=== PATIENT | male | born 1935 | race Caucasian/White ===

== ENCOUNTER → 2018-03-13 10:43 | Outpatient (CLI) | payer MEDICARE, OTHER, SELFPAY ==
--- NOTE | 2018-03-13 | DI.CT.S_ITS ---
PROCEDURE: CT CERVICAL SPINE WO CON INDICATIONS: CERVICAL SPINE RADICULOPATHY TECHNIQUE: Noncontrast 3 mm thick sections acquired from the skull base to the T4 level. Sagittal and coronal reformats were then constructed. For radiation dose reduction, the following was used: automated exposure control, adjustment of mA and/or kV according to patient size. COMPARISON: [facility], CT, C-SPINE W&WO CONTRAST, 04/09/2014, 14:15. [facility], CR, XR CERVICAL SPINE 2V OR 3V, 01/26/2018, 12:14. [facility], CR, CERVICAL SPINE 4 OR 5 VIEWS, 12/20/2017, 14:55. FINDINGS: Image quality: Excellent. Bones: There is straightening of cervical curvature. No fractures or dislocations. There is degenerative disc disease with posterior disc bulge at C3-C4, C4-C5, C5-C6, C6-C7 and C7-T1. Scattered bilateral facet arthropathy is present, moderate to severe at C3-C4 and C4-C5 on the left and C5-C6 on the right. There is mild central canal stenosis at C5-C6, C6-C7 and C7-T1. There is severe foraminal stenosis at C5-C6 on the right and moderate foraminal stenosis at C6-C7 bilaterally. Visualized superior ribs are intact. Soft tissues: Prevertebral soft tissues are normal in thickness. No paravertebral hematomas. No apical pneumothoraces. Right maxillary sinus mucosal thickening. IMPRESSION: 1. Multilevel degenerative disc disease and facet arthropathy as described. 2. Mild central canal stenosis at C5-C6, C6-7 and C7-T1. 3. Multilevel foraminal stenosis, severe at C5-C6 on the right and moderate C6-C7 bilaterally. Dictated by: Palmer Joy M.D. on 03/13/2018 at 12:46 Approved by: Palmer Joy M.D. on 03/13/2018 at 12:52
== END ==
PROVIDERS: PCP Family Medicine; Visit Provider Orthopaedic Surgery Orthopaedic Surgery of the Spine
DX: M54.12 Radiculopathy, cervical region (principal); M47.892 Other spondylosis, cervical region
CPT/HCPCS: 72125

== ENCOUNTER → 2018-03-26 11:29 | Outpatient (CLI) | payer MEDICARE, OTHER, SELFPAY ==
[2018-03-26 12:10] LABS: Add Manual Diff / Slide Review NO; Basophils Percent Auto 0.8 % (0-2); Eosinophils Percent Auto 2.4 % (2-4); Hematocrit 39.6 % (41-53); Hemoglobin 13.6 g/dL (13.5-17.5); Lymphocytes Percent Auto 39.1 % (25-40); Mean Corpuscular HGB Conc 34.4 % (30-36); Mean Corpuscular Hemoglobin 32.6 PG (26-34); Mean Corpuscular Volume 94.8 fL (80-100); Monocytes Percent Auto 11.4 % (3-14); Neutrophils Absolute Auto 2300 /uL (3000-5900); Neutrophils Percent Auto 46.3 % (50-75); Platelet Count 263 X10^3/uL (150-400); Red Blood Cell Count 4.18 X10^6/uL (4.5-5.9); Red Cell Distribution Width 12.8 % (11.6-14.8)
[2018-03-26 12:25] LABS: BUN Creatinine Ratio 16.7 (6-22); Blood Urea Nitrogen 15 mg/dL (9-20); Calcium 10.1 mg/dL (8.4-10.2); Carbon Dioxide 27 mmol/L (22-32); Chloride 96 mmol/L (98-107); Estimated Glomerular Filt Rate > 60.0 mL/min (>60); Glucose 242 mg/dL (80-110); HEMOLYSIS < 15 (0-50); Potassium 4.4 mmol/L (3.4-5.1); Sodium 137 mmol/L (137-145)
[2018-03-26 12:40] LABS: Hemoglobin A1C% w Est Avg Glu 8.1 % (4.0-6.0)
== END ==
PROVIDERS: PCP Family Medicine; Visit Provider Orthopaedic Surgery Orthopaedic Surgery of the Spine
DX: M48.02 Spinal stenosis, cervical region (principal); Z01.818 Encounter for other preprocedural examination
CPT/HCPCS: 36415; 80048; 83036; 85025; 93005

== ENCOUNTER 2018-04-03 10:29 | Inpatient (IN) | payer MEDICARE, OTHER, SELFPAY ==
[2018-03-27 07:30] VITALS: BMI 29.3
[2018-04-03] VITALS (14 sets, daily range): BP systolic 140–173; BP diastolic 76–101; PULSE 75–88; RESP 15–20; TEMP 35.9–36.5; O2SAT 90–99; BMI 29.3
--- NOTE | 2018-04-03 | DI.RAD.S_ITS ---
PROCEDURE: XR CERVICAL SPINE 2V OR 3V INDICATIONS: C5-6, C6 -7 ACDF TECHNIQUE: 2 view(s) of the cervical spine were acquired. COMPARISON: [facility], CR, XR CERVICAL SPINE 2V OR 3V, 01/26/2018, 12:14. FINDINGS: 2 fluoroscopy images demonstrate discectomy and anterior fusion at C5-C6 and C6-C7. Surgical hardware appear in expected position. Alignment is anatomic. IMPRESSION: Discectomy and anterior fusion at C5-C6 and C6-C7. Dictated by: Palmer Joy M.D. on 04/03/2018 at 15:13 Approved by: Palmer Joy M.D. on 04/03/2018 at 15:16
[2018-04-03] MEDS: LACTATED RINGERS 1,000 ML 42 ML IV ×2 (11:05→14:03)
--- NOTE | 2018-04-03 11:44 | PM.PREOP ---
Pre-operative Note Interval Note Pre-op Check: Yes History & Physical Reviewed by Physician, Yes Exam Performed and Yes History & Physical exam performed today by Physician Changes: No
[2018-04-03] MEDS: CEFAZOLIN 2 GM/100 ML FROZ.PIGGY IV ×2 (12:09→22:06)
--- NOTE | 2018-04-03 13:00 | SUR.OPER ---
Supine on padded OR bed, head on gel doughnut, rolled towel between shoulder blades vertically arms padded and tucked at sides, legs uncrossed pillow under the knees, tape on shoulders then over blanket from shoulder to foot of the bed.
--- NOTE | 2018-04-03 14:22 | PM.OP.1 ---
Operative Date/Time/Diagnoses Date of procedure: 04/03/18 Time of procedure: 12:22 Pre-op diagnosis: 1. C5-6, C6-7 spondylosis with radiculopathy 2. C5-6, C6-7 spinal stenosis. Post-op diagnosis: same Procedure & Clinicians Procedure: 1. C5-6, C6-7 anterior cervical discectomy and fusion 2. C5-6, C6-7 anterior interobody cage placement 3. C5-6, C6-7 anterior instrumentation with plate and screw placement in C5, C6, C7 4. Utilization of microsurgical technique and operating microscope Same procedure as scheduled: Yes Indications: Patient has been having chronic neck pain and worsening cervical radiculopathy. Patient failed multiple conservative management with worsening pain weakness and numbness in her upper extremity. Patient has been having difficulty performing activity of daily living. After discussing risks benefits of treatment options, patient elected proceed with surgery. Surgeon: Mayda Doherty Umbrella Tipper: Chante Gillis Click Yes if Unassisted: No Anesthesia Type: General Operative Notes Closure Type: primary Specimen(s): none sent Implants & Drains: Globus extend plate and PEEK interbody cage Estimated Blood Loss (mL): 10 Blood products transfused: none Procedure in detail: Patient was seen in the preoperative area. Risks and benefits of the surgery was discussed with the patient. Operative consent was obtained and placed in the chart. Patient was then taken to the operative room. Prophylactic antibiotic was given less than 0.5 hr prior to skin incision. General anesthesia was administered. Patient was placed into a supine position on her radiolucent table. Bilateral shoulders were taped down to allow proper C-arm imaging. Anterior cervical area was prepped and draped in a sterile fashion. Time-out was performed at this time. Using lateral C-arm imaging, the level between C5 and C7 was identified and marked on patient's neck. A oblique incision from midline towards medial border of sternocleidomastoid muscle was made. The platysma muscle was incised in line with skin incision. Metzenbaum scissor was used to develop the plane between the medial border of sternocleidomastoid d and the strap muscles medially. The carotid sheath and its contents were identified and protected behind the hand-held retractor during the entire case. The plane between the carotid sheath and strap muscles was developed with Metzenbaum scissors. Dissection was made down to the level of the anterior cervical fascia. Longus colli muscle was incised on the anterior aspect of vertebral bodies bilaterally from C5-C7. Spinal needle was placed into the C5-6 disc space and confirmed with lateral C-arm imaging. Using microsurgical technique and operative microscope, anterior cervical diskectomy was performed at C5-6 and C6-7 level. This was done by removing the disc material, removing the anterior and posterior osteophytes posterior longitudinal ligaments along with performing bilateral foraminotomies at both levels. Patient was found to have severe central and foraminal stenosis at both levels. Patient's stenosis was fully decompressed after decompression was completed. After the diskectomy was completed, 2 anterior interbody cages were obtained. The cages were packed with globus via cell bone grafting material. One cage each along with the bone grafting material was then packed into the interbody spaces from C5-C7 with one cage into each interbody level. After the cages were placed, the anterior cervical plate was stabilized to the C5-C7 vertebrae using 2 screws at each each level. Total 6 screws were placed. After confirming placement of the hardware with AP and lateral C-arm imaging, the screws were locked into the plate using the locking mechanism and torque limiting screwdriver. After the hardware was placed and confirmed with AP and lateral C-arm imaging, the wound was irrigated with sterile normal saline. The platysma muscle and the subcutaneous tissue was closed with 2-0 Vicryl. The skin was closed with 4-0Monocryl and Steri-Strips. Patient tolerated the procedure well. Patient was transferred recovery room in stable condition. There were no complications. Complications: none Condition: stable Disposition: Acute Care
--- NOTE | 2018-04-03 14:26 | P.OP_ITS ---
Operative Date/Time/Diagnoses Date of procedure: 04/03/18 Time of procedure: 12:22 Pre-op diagnosis: 1. C5-6, C6-7 spondylosis with radiculopathy 2. C5-6, C6-7 spinal stenosis. Post-op diagnosis: same Procedure & Clinicians Procedure: 1. C5-6, C6-7 anterior cervical discectomy and fusion 2. C5-6, C6-7 anterior interobody cage placement 3. C5-6, C6-7 anterior instrumentation with plate and screw placement in C5, C6 , C7 4. Utilization of microsurgical technique and operating microscope Same procedure as scheduled: Yes Indications: Patient has been having chronic neck pain and worsening cervical radiculopathy. Patient failed multiple conservative management with worsening pain weakness and numbness in her upper extremity. Patient has been having difficulty performing activity of daily living. After discussing risks benefits of treatment options, patient elected proceed with surgery. Surgeon: Mayda Doherty Safety Deposit Clerk: Chante Gillis Click Yes if Unassisted: No Anesthesia Type: General Operative Notes Closure Type: primary Specimen(s): none sent Implants & Drains: Globus extend plate and PEEK interbody cage Estimated Blood Loss (mL): 10 Blood products transfused: none Procedure in detail: Patient was seen in the preoperative area. Risks and benefits of the surgery was discussed with the patient. Operative consent was obtained and placed in the chart. Patient was then taken to the operative room. Prophylactic antibiotic was given less than 0.5 hr prior to skin incision. General anesthesia was administered. Patient was placed into a supine position on her radiolucent table. Bilateral shoulders were taped down to allow proper C-arm imaging. Anterior cervical area was prepped and draped in a sterile fashion. Time-out was performed at this time. Using lateral C-arm imaging, the level between C5 and C7 was identified and marked on patient's neck. A oblique incision from midline towards medial border of sternocleidomastoid muscle was made. The platysma muscle was incised in line with skin incision. Metzenbaum scissor was used to develop the plane between the medial border of sternocleidomastoid d and the strap muscles medially. The carotid sheath and its contents were identified and protected behind the hand- held retractor during the entire case. The plane between the carotid sheath and strap muscles was developed with Metzenbaum scissors. Dissection was made down to the level of the anterior cervical fascia. Longus colli muscle was incised on the anterior aspect of vertebral bodies bilaterally from C5-C7. Spinal needle was placed into the C5-6 disc space and confirmed with lateral C-arm imaging. Using microsurgical technique and operative microscope, anterior cervical diskectomy was performed at C5-6 and C6-7 level. This was done by removing the disc material, removing the anterior and posterior osteophytes posterior longitudinal ligaments along with performing bilateral foraminotomies at both levels. Patient was found to have severe central and foraminal stenosis at both levels. Patient's stenosis was fully decompressed after decompression was completed. After the diskectomy was completed, 2 anterior interbody cages were obtained. The cages were packed with globus via cell bone grafting material. One cage each along with the bone grafting material was then packed into the interbody spaces from C5-C7 with one cage into each interbody level. After the cages were placed, the anterior cervical plate was stabilized to the C5-C7 vertebrae using 2 screws at each each level. Total 6 screws were placed. After confirming placement of the hardware with AP and lateral C-arm imaging, the screws were locked into the plate using the locking mechanism and torque limiting screwdriver. After the hardware was placed and confirmed with AP and lateral C-arm imaging, the wound was irrigated with sterile normal saline. The platysma muscle and the subcutaneous tissue was closed with 2-0 Vicryl. The skin was closed with 4- 0Monocryl and Steri-Strips. Patient tolerated the procedure well. Patient was transferred recovery room in stable condition. There were no complications. Complications: none Condition: stable Disposition: Acute Care
[2018-04-03] MEDS: OXYCODONE IR 5 MG TABLET PO (16:19)
[2018-04-03] MEDS: SODIUM CHLORIDE 0.9% 1,000 ML 100 ML IV (16:30)
--- NOTE | 2018-04-03 17:48 | CM.MNRNOTE ---
Addendum entered by Grazyna Flanagan R.N. 04/03/18 22:33: Satisfactory post op course. Stands at bedside to void. Dsg w/ small shadow drainage on edge of dsg. Call light w/in reach. Bed alarm on for pt safety. Continue w/plan of care. Original Note: Pt arrived to [facility] 206 @ 1600. Awake, drowsey. Dsg to the anterior neck CDI. IV NS @ 100cc/hr infusing via pump into the LFA as per orders w/o incidence. Family in room. Call light w/in reach, bed alarm on for pt safety.
[2018-04-03] MEDS: DOCUSATE 100 MG CAPSULE PO (21:46)
[2018-04-03] MEDS: DULOXETINE 30 MG CAPSULE PO (21:47)
[2018-04-03] MEDS: METFORMIN HCL 500 MG TABLET 1000 MG PO (21:48)
[2018-04-03] MEDS: METOPROLOL 25 MG TABLET PO (21:48)
[2018-04-03] MEDS: INSULIN GLARGINE 100 UNIT/ML 3ML PEN 20 UNIT SUBCUT (21:49)
[2018-04-03] MEDS: SENNOSIDES 8.6 MG TABLET 17.2 MG PO (22:07)
[2018-04-04] VITALS (9 sets, daily range): BP systolic 132–159; BP diastolic 58–83; PULSE 69–95; RESP 15–18; TEMP 35.9–37.3; O2SAT 93–96
[2018-04-04] MEDS: OXYCODONE IR 5 MG TABLET PO ×6 (00:24→21:18)
[2018-04-04] MEDS: SODIUM CHLORIDE 0.9% 1,000 ML 100 ML IV (00:34)
[2018-04-04] MEDS: CEFAZOLIN 2 GM/100 ML FROZ.PIGGY IV (04:30)
[2018-04-04] MEDS: LEVOTHYROXINE 75 MCG TABLET PO (05:53)
[2018-04-04 05:58] LABS: Hematocrit 36.2 % (41-53); Hemoglobin 12.5 g/dL (13.5-17.5)
--- NOTE | 2018-04-04 07:31 | PM.PNPO.1 ---
Subjective Date Patient Seen: 04/04/18 Time Patient Seen: 07:32 Interval history: POD #1 s/p C5-6, C6-[address] Doherty. His pain is well controlled. He notes discomfort in his neck and tingling in his right hand. He has not eaten yet, no difficulty with swallowing. He has not ambulated with physical therapy. His blood sugars have been controlled. Voiding without dificulty or assistance. Denies chest pain, or shortness of breath. Exam Vital Signs (past 8 hours): - 04/04/18 00:15 04/04/18 04:40 Temperature 98.3 F 98.8 F Pulse Rate 73 72 Respiratory Rate 15 16 Blood Pressure 138/77 H 148/69 H Pulse Oximetry 96 96 Oxygen Delivery Method Room Air Oxygen Flow Rate 1 Narrative Exam Narrative: Patient sitting in bedside chair. Wearing soft collar. 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 Dressing on neck is CDI. Radial pulses are symmetrical. Objective Labs Result Diagrams: 04/04/18 05:49 Labs: Laboratory Results - last 24 hr 04/04/18 05:49 Hgb 12.5 L Hct 36.2 L Assessment & Plan Post-op (1) S/P lumbar fusion: Current Visit: No Status: Acute (2) BPV (benign positional vertigo): Current Visit: No Status: Acute (3) Diabetes: Current Visit: Yes Status: Acute Postoperative Procedures Operation Date: 04/03/18 12:15 Actual Procedures Side Surgeon p C5-6, C6-7 ACDF w/Anterior Instru Mayda Doherty MD POD #1 s/p C5-6, C6-[address] Doherty. Will start ambulating today. No excessive bending, lifting, or twisting. Continue to monitor pain. Plan to discharge home once mobilizing safely and pain adequately controlled. Time Spent With Patient less than 15 minutes Quality VTE Deep Vein Thrombosis/Pulmonary Embolism Present on Admission: No
[2018-04-04] MEDS: METFORMIN HCL 500 MG TABLET 1000 MG PO ×2 (08:27→21:18)
[2018-04-04] MEDS: DOCUSATE 100 MG CAPSULE PO ×2 (08:27→21:18)
[2018-04-04] MEDS: ESCITALOPRAM 10 MG TABLET PO (08:27)
[2018-04-04] MEDS: MULTIVITAMIN 1 TABLET 1 TAB PO (08:27)
[2018-04-04] MEDS: TAMSULOSIN 0.4 MG CAPSULE PO (08:27)
--- NOTE | 2018-04-04 10:16 | CM.DANOTE ---
DCP/Assessment: Reviewed chart. Patient is a 83yr old male admitted to [facility] for ACDF with Dr. Doherty. PCP is Dr. Smith. Primary payor is 1)Medicare 2)[employer]. Met with patient and spouse/Siri at bedside explained CM/SW role. Patient resides with spouse in [place] and plans to d/c home when medically stable. Therapy evaluation currently pending. Patient uses cane at baseline and spouse plans to borrow walker or any other DME from [employer] upon d/c. P: Anticipate home when medically stable. CM team to follow closely for needs. JUDE Fenton Discharge Planning/Care Management CM Discharge Assessment Start: 04/04/18 10:04 Freq: Status: Active Protocol: Document 04/04/18 10:04 KJS (Rec: 04/04/18 10:15 KJS [id number]) Discharge Planning Assessment Assigned Financial Services Representative JUDE/Danii History Provided By Patient Significant Other Has Patient been admitted in last 30 No days? Prior Living Arrangements House Household Members spouse Is patient alert and oriented? Yes Caregiver for Another No DME Already Rented / Owned Cane Discharge Plan Home Transportation Arrangement Spouse Review Status In Process Next Review Type Continued Stay Review
--- NOTE | 2018-04-04 11:02 | PC.NURSE ---
Assess-Pt coughed when swallowing all of his meds this morning. He had an anterior, cervical surgery. Pts throat is soar. Speech into see patient and recommends that pt is sitting straight up when he eats. Otherwise his dressing to anterior neck is cdi with old small amount of ss drainage. Visiting with friends and family now. Given 1 oxycodone for pain and helpful.
--- NOTE | 2018-04-04 11:06 | OT.IP.EVAL ---
Current Diagnoses Type 2 diabetes mellitus without complications (04/03/18) Benign paroxysmal vertigo, unspecified ear (04/03/18) Other spondylosis with radiculopathy, cervical region (04/03/18) Spinal stenosis, cervical region (04/03/18) Arthrodesis status (04/03/18) Surgery Performed Operation Date: 04/03/18 12:15 Actual Procedures p C5-6, C6-7 ACDF w/Anterior Eligiou - Mayda Doherty MD Past Medical History (Last Updated 03/27/18 @ 09:55 by Susan Mckoy, RN) Anxiety (Acute) CAD (coronary artery disease) (Acute) DDD (degenerative disc disease), cervical (Acute) Depression (Acute) Diabetes (Acute) Dyslipidemia (Acute) Dysuria (Acute) Elevated serum homocysteine level (Acute) History of CVA (cerebrovascular accident) (Acute) History of angina (Acute) History of dizziness (Acute) History of esophageal reflux (Acute) History of fatigue (Acute) History of hematuria (Acute) Impotence (Acute) Lumbosacral radiculopathy at L5 (Acute) Memory deficit (Acute) Neuropathy of both feet (Acute) Osteoarthritis (Acute) Pacemaker (Acute ~2013) Paroxysmal A-fib (Acute) Psychosexual dysfunction (Acute) RBBB (Acute) Renal insufficiency (Acute) Sick sinus syndrome (Acute) Sleep apnea (Acute) Spinal stenosis in cervical region (Acute) Spinal stenosis of lumbar region (Acute) TIA (transient ischemic attack) (Acute) Urinary retention (Acute) Surgical History (Last Updated 03/27/18 @ 09:57 by Susan Mckoy, RN) H/O laminectomy (Acute) H/O shoulder surgery (Acute) H/O thumb surgery (Acute) History of appendectomy (Acute) History of bladder surgery (Acute) History of cardiac cath (Acute ~2012) History of cholecystectomy (Acute ~2012) History of cystoscopy (Acute) History of lumbar fusion (Acute) History of tonsillectomy (Acute) History of vasectomy (Acute) Status post right foot surgery (Acute) Occupational Therapy Inpatient Evaluation/Re-Eval M1 PT/OT-IP Prior Functional Status Start: 04/04/18 10:47 Freq: NEEDED Status: Active Protocol: Document 04/04/18 10:48 [facility] (Rec: 04/04/18 11:06 [facility] [id number]) Medical Review Prior Functional Status Medical History Reviewed Yes Diet/Fluid Consistency Regular Thin Liquids Mobility and Gait Used SPCC outdoors and furniture walk indoors and at times use of SPC inside. Activities of Daily Living and IADL's Increased time for all ADL's. Social History Household Members spouse Living Arrangements House Number of Floors (Floors) One Floor Number of Stairs To Enter/Railing? 3 steps with no rails and has a basement that he does not have to access. 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 Sock Aid Grab Bars Near Toilet Grab Bars In Shower Employment Status Retired M2 OT-IP Current Condition Start: 04/04/18 10:47 Freq: Status: Active Protocol: Document 04/04/18 10:48 [facility] (Rec: 04/04/18 11:06 [facility] [id number]) Occupational Therapy Current Condition Current Condition Evaluation Date 04/04/18 Treatment Diagnosis C5-6, C6-7 anterior-cervical Discectomy and Fusion Diagnosis Onset Date 04/03/18 Post Operative Precautions Cervical Spine Precautions Soft Collar for Comfort No Heavy Lifting Log Roll Weight Bearing Status Weight Bearing Status Weight Bear as Tolerated M3 OT- IP Subjective and Pain Start: 04/04/18 10:47 Freq: Status: Active Protocol: Document 04/04/18 10:48 [facility] (Rec: 04/04/18 11:06 [facility] [id number]) OT- Subjective Occupational Therapy Visit Type Type Initial Evaluation Visit Start Time 09:40 Visit Stop Time 10:00 Total Visit Minutes 20 Occupational Therapy Visit Comments Patient Comments Pt cooperative and present for OT eval. Patient/Caregiver Goals To be able to go home tomorrow . OT Pain Assessment Pain When Pain Assessed At Rest Pain Present Pain Present Pain Reported Location Neck Intensity 6 Scale Used Numeric (1 - 10) Management Techniques Re-positioning Timing of Activity with Medications M4 OT- IP ADL's Start: 04/04/18 10:47 Freq: Status: Active Protocol: Document 04/04/18 10:48 [facility] (Rec: 04/04/18 11:06 [facility] [id number]) OT [id number] General Evaluation Self-Feeding Ability Standby Assistance Comments OT Self-Feeding Comments Educated pt to be sure to chew food thoroughly, take small bites and alternate with water . To sit upright at 90 degrees , recommended to PA , pt to have PRENATAL NURSE screen/eval. OT ADL-Grooming General Evaluation Grooming Ability Standby Assistance Areas Needing Assistance Retrieving/Set-up of Grooming Items Comments OT Grooming Comments VC to make sure FWW in front of him at all times. Instead on bending at his neck to either bend at his waist or bring cup up to his mouth to spit. OT ADL-Oral Care General Eval Oral Care Ability Independent OT ADL-Dressing Comments OT Dressing Comments Not able to assess, pt have AED and to assist at home . Pt able to independently delilah /doff soft collar OT ADL-Toileting General Evaluation Toileting Ability Standby Assistance Devices Toileting Assistive Devices Grab Bars Comments OT Toileting Comments Suggested may benefit form urinal at night as gets up 4x/ night. OT ADL-Bathing Comments OT Bathing Comments Pt states to shower at home. M6 OT- IP Functional Cognition Start: 04/04/18 10:47 Freq: Status: Active Protocol: Document 04/04/18 10:48 [facility] (Rec: 04/04/18 11:06 [facility] [id number]) Cognitive Factors Limiting Selfcare Function Cognitive Ability Level of Alertness Alert Patient Orientation Name Place Situation Attention Span Ability Capable of Focused Attention Capable of Sustained Attention Ability to Follow Commands Able to Follow Multi-Step Commands Memory Description No Deficits Noted Safety Awareness Decreased Ability to Apply Precautions Problem Solving Ability Needs Assist to Identify Solutions Cognitive Comments Cognitive Assessment Comments Mainly needing education to incorporate cervical precautions for ADL's and functional mobility. OT- Vision and Hearing OT- Hearing Assessment OT- Hearing Assessment WFL M7 OT- IP Mobility and Balance Start: 04/04/18 10:47 Freq: Status: Active Protocol: Document 04/04/18 10:48 [facility] (Rec: 04/04/18 11:06 [facility] [id number]) OT-Transfer Assessment Sit to and From Stand Sit to and from Stand Contact Guard Assistance Transfers Transfer Ability Standby Assistance Contact Guard Assistance Technique Transfer Destination Chair Toilet Transfer Technique Stand Step Pivot Devices Transfer Assistive Devices Gait Belt Standard Walker Comments Mobility Comments CGA for occasional unsteadiness on his feet with FWW. Nursing states pt able to get up from the bed on his own earlier. Educated pt to be careful and look in front of him especially since they have a small dog who is now blind. OT- Gait Assessment Gait Gait Assistance Required: Standby Assistance Contact Guard Assist Able to Maintain Weight Bearing Status Yes During Gait Assistive Devices Assistive Device Gait Belt Standard Walker Comments Gait Ability Comments Occassional CGA for balance with FWW. OT- Balance Assessment Sitting Balance and Reactions Static Sitting Balance Ability Normal Dynamic Sitting Balance Ability Normal Standing Balance and Reactions Static Standing Balance Ability Good Dynamic Standing Balance Ability Fair M8 OT- IP Objective Assessments Start: 04/04/18 10:47 Freq: Status: Active Protocol: Document 04/04/18 10:48 [facility] (Rec: 04/04/18 11:06 [facility] [id number]) OT Gross Range of Motion Upper Extremity Range of Motion Assessment Within Functional Limits OT Strength Upper Extremity Strength Assessment Within Functional Limits OT-Muscle Tone Assessment Muscle Tone WNL Yes M9 OT- IP Assessment and Plan Start: 04/04/18 10:47 Freq: Status: Active Protocol: Document 04/04/18 10:48 [facility] (Rec: 04/04/18 11:06 [facility] [id number]) OT Summary Assessment and Plan Potential Rehabilitation Potential Excellent Analytic Complexity at Evaluation Low Summary OT Impairments Pain Balance Dressing Toilet Transfers Progress Towards Goals Progressing Toward Goals Assessment Summary Pt doing well and has supportive to assist at home and looking to go home tomorrow. Goals Self-Feeding Goal Independent Grooming Goal Independent Dressing Goal Standby Assistance Toileting Goal Independent Bathing Goal Standby Assistance Toilet Transfer Goal Standby Assistance Shower Transfer Goal Standby Assistance Patient/Caregiver Education Goal Demonstrate Post-Op Precautions Caregiver Independent Assisting Patient Days to Meet Goals 2 Frequency of Treatment Frequency Of Treatment Once a Day Treatment Plan OT Treatment Plan ADL Training Functional Mobility Patient/Family Education Discharge Planning Other Treatment Recommendations and Next Shower and dressing. Treatment Focus Discharge Recommendations OT Discharge Recommendations Home with Assistance Home Equipment Needs Pt to get FWW.
--- NOTE | 2018-04-04 11:08 | SLP.IPNOTE ---
Order received for consult s/p cervical spine fusion surgery. Pt seen in his room in bedside chair with visitors. Pt reported that his voice was lower in pitch and that he has had some difficulty with liquids and excess mucous. Discussed with the pt that these symptoms are not unusual following surgery; however if they persist 1-2 weeks, he should contact physician for referral to speech pathology for assessment to r/o dysphagia and/or dysphonia. Discussed the need for the pt to be seated upright at 90 degrees with feet on the floor for all PO intake, including medications with the pt/family and nursing
--- NOTE | 2018-04-04 11:43 | PT.IIE ---
Current Diagnoses Type 2 diabetes mellitus without complications (04/03/18) Benign paroxysmal vertigo, unspecified ear (04/03/18) Other spondylosis with radiculopathy, cervical region (04/03/18) Spinal stenosis, cervical region (04/03/18) Arthrodesis status (04/03/18) Surgery Performed Operation Date: 04/03/18 12:15 Actual Procedures p C5-6, C6-7 ACDF w/Anterior Eligiou - Mayda Doherty MD Surgical History (Last Updated 03/27/18 @ 09:57 by Susan Mckoy RN) H/O laminectomy (Acute) H/O shoulder surgery (Acute) H/O thumb surgery (Acute) History of appendectomy (Acute) History of bladder surgery (Acute) History of cardiac cath (Acute ~2012) History of cholecystectomy (Acute ~2012) History of cystoscopy (Acute) History of lumbar fusion (Acute) History of tonsillectomy (Acute) History of vasectomy (Acute) Status post right foot surgery (Acute) Medical History (Last Updated 03/27/18 @ 09:55 by Susan Mckoy RN) Anxiety (Acute) CAD (coronary artery disease) (Acute) DDD (degenerative disc disease), cervical (Acute) Depression (Acute) Diabetes (Acute) Dyslipidemia (Acute) Dysuria (Acute) Elevated serum homocysteine level (Acute) History of CVA (cerebrovascular accident) (Acute) History of angina (Acute) History of dizziness (Acute) History of esophageal reflux (Acute) History of fatigue (Acute) History of hematuria (Acute) Impotence (Acute) Lumbosacral radiculopathy at L5 (Acute) Memory deficit (Acute) Neuropathy of both feet (Acute) Osteoarthritis (Acute) Pacemaker (Acute ~2013) Paroxysmal A-fib (Acute) Psychosexual dysfunction (Acute) RBBB (Acute) Renal insufficiency (Acute) Sick sinus syndrome (Acute) Sleep apnea (Acute) Spinal stenosis in cervical region (Acute) Spinal stenosis of lumbar region (Acute) TIA (transient ischemic attack) (Acute) Urinary retention (Acute) Physical Therapy Inpatient Evaluation/Re-Eval M1 PT/OT-IP Prior Functional Status Start: 04/04/18 10:47 Freq: NEEDED Status: Active Protocol: Document 04/04/18 11:43 [facility]D (Rec: 04/04/18 13:19 MDD [id number]) Medical Review Prior Functional Status Medical History Reviewed Yes Diet/Fluid Consistency Regular Thin Liquids Mobility and Gait Used SPC outdoors and furniture walk indoors and at times use of SPC inside. Activities of Daily Living and IADL's Increased time for all ADL's. Social History Household Members spouse Living Arrangements House Number of Floors (Floors) One Floor Number of Stairs To Enter/Railing? 3 steps with no rails and has a basement that he does not have to access. Home Environment High Toilet Walk in Shower Built-In Shower Seat Home Equipment Straight Cane Sound Printer Sock Aid Grab Bars Near Toilet Grab Bars In Shower Employment Status Retired Additional Social History Comment Pt and describe baseline dizziness for which he is seeing a neurologist. Comes on randomly, not associated with positional changes. Has not fallen but has had quite a few near misses. Family working on getting a FWW. M1 PT/OT-IP Prior Functional Status Start: 04/04/18 13:10 Freq: NEEDED Status: Active Protocol: Document 04/04/18 11:43 MDD (Rec: 04/04/18 13:19 MDD [email or web address]) M2 PT-IP Current Condition Start: 04/04/18 13:10 Freq: NEEDED Status: Active Protocol: Document 04/04/18 11:43 MDD (Rec: 04/04/18 13:19 MDD [email or web address]) Physical Therapy Current Condition Current Condition Evaluation Date 04/04/18 Treatment Diagnosis s/p C5-6, C5-7 ACDF Onset Date 04/03/18 Precautions Cervical Spine Precautions Soft Collar for Comfort No Heavy Lifting Log Roll Weight Bearing Status Weight Bearing Status Weight Bear as Tolerated M3 PT-IP Subjective Start: 04/04/18 13:10 Freq: NEEDED Status: Active Protocol: Document 04/04/18 11:43 MDD (Rec: 04/04/18 13:19 MDD [email or web address]) Subjective Physical Therapy Visit Type Type Initial Evaluation Visit Start Time 11:20 Visit Stop Time 11:43 Total Visit Minutes 23 Number of STATE FIRE MARSHAL Visits 0 Physical Therapy Visit Comments Patient Comments Agreeable to participate with PT. Therapy Pain Assessment Pain When Pain Assessed At Rest Pain Present Pain Present Pain Reported Location Neck Intensity 7 Scale Used Numeric (1 - 10) Description Aching M4 PT-IP Mobility and Gait Start: 04/04/18 13:10 Freq: NEEDED Status: Active Protocol: Document 04/04/18 11:43 MDD (Rec: 04/04/18 13:19 MDD [email or web address]) PT-Bed Mobility Assessment Rolling Type of Rolling Log Rolling Roll to Left Level of Assist Standby Assistance Supine to Sit Supine to Sit Standby Assistance Scooting Scooting to Edge of Bed Independent PT-Transfer Assessment Sit to and From Stand Sit to and from Stand Contact Guard Assistance Equipment Transfer Assistive Device Gait Belt Front Wheeled Walker Transfers Transfer Destination Chair Transfer Technique Stand Step Pivot Transfer Ability Level of Assist Contact Guard Assistance Gait Assessment Gait Gait Assistance Required: Contact Guard Assist Distance (Feet) (feet) 100 Assistive Devices Assistive Device Gait Belt Front Wheeled Walker Gait Deviations General Gait Pattern Within Normal Limits Flexed Trunk Comments Gait Comments Requires cues for posture with gait using FWW. Multiple standing breaks to allow dizziness to pass ( reports this is normal for him). PT-Balance Assessment Sitting Balance and Reactions Static Sitting Balance Ability Normal Dynamic Sitting Balance Ability Normal Balance Tests Romberg 1 small LOB backwards, required CGA to maintain balance M5 PT-IP Objective Assessments Start: 04/04/18 13:10 Freq: NEEDED Status: Active Protocol: Document 04/04/18 11:43 MDD (Rec: 04/04/18 13:19 MDD [email or web address]) Orientation Orientation/Cognition Level of Alertness Alert Orientation Name Age Birthday Month Date Year Day of Week Place Situation Language Function Ability No Deficits Noted Safety Awareness Understands Safety Issues Memory Description No Deficits Noted Gross Range of Motion Lower Extremity ROM Assessment Within Functional Limits Strength Lower Extremity Strength Assessment Within Functional Limits M6 PT-IP Treatment Start: 04/04/18 13:10 Freq: NEEDED Status: Active Protocol: Document 04/04/18 11:43 MDD (Rec: 04/04/18 13:19 MDD [email or web address]) Physical Therapy Treatment Education Education Provided Precautions Safety M7 PT-IP Assessment and Plan Start: 04/04/18 13:10 Freq: NEEDED Status: Active Protocol: Document 04/04/18 11:43 MDD (Rec: 04/04/18 13:19 MDD [email or web address]) PT Summary Assessment and Plan Potential Rehabilitation Potential Excellent Status of Condition at Evaluation Stable Summary Impairments Pain ROM Bed Mobility Transfers Gait Progress Towards Goals Progressing Toward Goals Assessment Summary Pt demonstrates good understanding of log roll for in/out of bed. Requires some cues for use of FWW. Progressing well overall. Goals Bed Mobility Goal Independent Transfer Goal Standby Assistance Gait Goal Standby Assistance Gait Distance 100 Other Goals 3 steps with no railing Days to Meet Goals 2 Frequency of Treatment Frequency Of Treatment Twice a Day Treatment Plan Physical Therapy Treatment Plan Bed Mobility Training Gait Training Discharge Planning Recommendations To Nursing Amount of Assist Needed 1 Person Assist Discharge Recommendations PT Discharge Recommendations Home with Assistance
--- NOTE | 2018-04-04 14:52 | PT.IPTN ---
Current Diagnoses Type 2 diabetes mellitus without complications (04/03/18) Benign paroxysmal vertigo, unspecified ear (04/03/18) Other spondylosis with radiculopathy, cervical region (04/03/18) Spinal stenosis, cervical region (04/03/18) Arthrodesis status (04/03/18) Surgery Performed Operation Date: 04/03/18 12:15 Actual Procedures p C5-6, C6-7 ACDF w/Anterior Kaley Doherty MD Physical Therapy Treatment Note M2 PT-IP Current Condition Start: 04/04/18 13:10 Freq: NEEDED Status: Active Protocol: Document 04/04/18 11:43 MDD (Rec: 04/04/18 13:19 MDD [email or web address]) Physical Therapy Current Condition Current Condition Evaluation Date 04/04/18 Treatment Diagnosis s/p C5-6, C5-7 ACDF Onset Date 04/03/18 Precautions Cervical Spine Precautions Soft Collar for Comfort No Heavy Lifting Log Roll Weight Bearing Status Weight Bearing Status Weight Bear as Tolerated M3 PT-IP Subjective Start: 04/04/18 13:10 Freq: NEEDED Status: Active Protocol: Document 04/04/18 14:52 MDD (Rec: 04/04/18 16:37 MDD [id number]) Subjective Physical Therapy Visit Type Type Treatment Note Visit Start Time 14:28 Visit Stop Time 14:52 Total Visit Minutes 24 Number of LAND CONSERVATION SPECIALIST Visits 0 Physical Therapy Visit Comments Patient Comments Agreeable to short PT session this afternoon. Got some rest after lunch today. Therapy Pain Assessment Pain When Pain Assessed At Rest Pain Present Pain Present Pain Reported Location Neck Intensity 4 Scale Used Numeric (1 - 10) Description Aching M4 PT-IP Mobility and Gait Start: 04/04/18 13:10 Freq: NEEDED Status: Active Protocol: Document 04/04/18 11:43 MDD (Rec: 04/04/18 13:19 MDD [email or web address]) PT-Bed Mobility Assessment Rolling Type of Rolling Log Rolling Roll to Left Level of Assist Standby Assistance Supine to Sit Supine to Sit Standby Assistance Scooting Scooting to Edge of Bed Independent PT-Transfer Assessment Sit to and From Stand Sit to and from Stand Contact Guard Assistance Equipment Transfer Assistive Device Gait Belt Front Wheeled Walker Transfers Transfer Destination Chair Transfer Technique Stand Step Pivot Transfer Ability Level of Assist Contact Guard Assistance Gait Assessment Gait Gait Assistance Required: Contact Guard Assist Distance (Feet) (feet) 100 Assistive Devices Assistive Device Gait Belt Front Wheeled Walker Gait Deviations General Gait Pattern Within Normal Limits Flexed Trunk Comments Gait Comments Requires cues for posture with gait using FWW. Multiple standing breaks to allow dizziness to pass ( reports this is normal for him). PT-Balance Assessment Sitting Balance and Reactions Static Sitting Balance Ability Normal Dynamic Sitting Balance Ability Normal Balance Tests Romberg 1 small LOB backwards, required CGA to maintain balance M5 PT-IP Objective Assessments Start: 04/04/18 13:10 Freq: NEEDED Status: Active Protocol: Document 04/04/18 11:43 MDD (Rec: 04/04/18 13:19 MDD [email or web address]) Orientation Orientation/Cognition Level of Alertness Alert Orientation Name Age Birthday Month Date Year Day of Week Place Situation Language Function Ability No Deficits Noted Safety Awareness Understands Safety Issues Memory Description No Deficits Noted Gross Range of Motion Lower Extremity ROM Assessment Within Functional Limits Strength Lower Extremity Strength Assessment Within Functional Limits M6 PT-IP Treatment Start: 04/04/18 13:10 Freq: NEEDED Status: Active Protocol: Document 04/04/18 14:52 MDD (Rec: 04/04/18 16:37 MDD [id number]) Physical Therapy Treatment Education Education Provided Safety Other Treatments Other Treatment Performed Review of safety precautions including SBA for toileting due to intermittent dizzy symptoms. Balance activities: Romberg with feet together 2 x30s, marching with/without UE support, alternate arm lifts to shoulder height, semi tandem stance 2 x30s B, heel raises with UE support. M7 PT-IP Assessment and Plan Start: 04/04/18 13:10 Freq: NEEDED Status: Active Protocol: Document 04/04/18 14:52 MDD (Rec: 04/04/18 16:37 MDD [id number]) PT Summary Assessment and Plan Potential Rehabilitation Potential Excellent Status of Condition at Evaluation Stable Summary Impairments Pain Gait Progress Towards Goals Progressing Toward Goals Assessment Summary Pt requires SBA for mobility this afternoon due to intermittent dizzy symptoms. Progressing well. Goals Bed Mobility Goal Independent Transfer Goal Standby Assistance Gait Goal Standby Assistance Gait Distance 100 Other Goals Pt does not have stairs to enter, stairs are for downstairs area including additional family room, spare bedroom etc. Days to Meet Goals 2 Frequency of Treatment Frequency Of Treatment Twice a Day Treatment Plan Physical Therapy Treatment Plan Bed Mobility Training Gait Training Discharge Planning Recommendations To Nursing Amount of Assist Needed 1 Person Assist Discharge Recommendations PT Discharge Recommendations Home with Assistance
[2018-04-04] MEDS: INSULIN GLARGINE 100 UNIT/ML 3ML PEN 20 UNIT SUBCUT (21:17)
[2018-04-04] MEDS: METOPROLOL 25 MG TABLET PO (21:18)
[2018-04-04] MEDS: PRAVASTATIN 20 MG TABLET 5 MG PO (21:18)
[2018-04-04] MEDS: SENNOSIDES 8.6 MG TABLET 17.2 MG PO (21:18)
[2018-04-04] MEDS: DULOXETINE 30 MG CAPSULE PO (21:18)
[2018-04-05 00:45] VITALS: BP 141/72; PULSE 84; RESP 16; TEMP 37.1; O2SAT 96
--- NOTE | 2018-04-05 02:16 | PC.NURSE ---
Addendum entered by Mari Grewal R.N. 04/05/18 06:14: Fingerstick at 3am = 150 Original Note: Addendum entered by Mari Grewal R.N. 04/05/18 05:48: pt given Oxycodone for pain with relief. No Bm duing shift. Ambulating to bathroom with walker and 1x assist Original Note: Pt is AxOx3, VSS, denying pain at this time. Pt refusing SCDs, blood clot and stroke risk explained and pt verbalized understanding. Pt able to ambulate with walker and 1 assist, weak at times. Soft black cervical collar in place. Dressing to neck is Clean, dry, and intact. Pt complains of a sorer throat, given popsicles and apple sauce. Pt has a pacemaker. Fingerstick to be checked at 3am. Will continue to monitor. Bed alarm on
[2018-04-05 03:15] VITALS: BP 146/71; PULSE 76; RESP 16; TEMP 37.3; O2SAT 96
[2018-04-05] MEDS: OXYCODONE IR 5 MG TABLET PO ×2 (03:26→07:58)
[2018-04-05] MEDS: LEVOTHYROXINE 75 MCG TABLET PO (05:42)
[2018-04-05] MEDS: TAMSULOSIN 0.4 MG CAPSULE PO (07:59)
[2018-04-05] MEDS: ESCITALOPRAM 10 MG TABLET PO (07:59)
[2018-04-05] MEDS: METFORMIN HCL 500 MG TABLET 1000 MG PO (07:59)
[2018-04-05] MEDS: MULTIVITAMIN 1 TABLET 1 TAB PO (07:59)
[2018-04-05] MEDS: DOCUSATE 100 MG CAPSULE PO (07:59)
[2018-04-05] MEDS: SODIUM CHLORIDE 0.9% FLUSH 10 ML IV (08:00)
[2018-04-05 09:02] VITALS: BP 151/76; PULSE 72; RESP 14; TEMP 37.1; O2SAT 96
--- NOTE | 2018-04-05 09:32 | PT.IPTN ---
Current Diagnoses Type 2 diabetes mellitus without complications (04/03/18) Benign paroxysmal vertigo, unspecified ear (04/03/18) Other spondylosis with radiculopathy, cervical region (04/03/18) Spinal stenosis, cervical region (04/03/18) Arthrodesis status (04/03/18) Surgery Performed Operation Date: 04/03/18 12:15 Actual Procedures p C5-6, C6-7 ACDF w/Anterior Kaley Doherty MD Physical Therapy Treatment Note M2 PT-IP Current Condition Start: 04/04/18 13:10 Freq: NEEDED Status: Active Protocol: Document 04/04/18 11:43 MDD (Rec: 04/04/18 13:19 MDD [email or web address]) Physical Therapy Current Condition Current Condition Evaluation Date 04/04/18 Treatment Diagnosis s/p C5-6, C5-7 ACDF Onset Date 04/03/18 Precautions Cervical Spine Precautions Soft Collar for Comfort No Heavy Lifting Log Roll Weight Bearing Status Weight Bearing Status Weight Bear as Tolerated M3 PT-IP Subjective Start: 04/04/18 13:10 Freq: NEEDED Status: Active Protocol: Document 04/05/18 09:35 MDD (Rec: 04/05/18 09:38 MDD [email or web address]) Subjective Physical Therapy Visit Type Type Treatment Note Visit Start Time 09:22 Visit Stop Time 09:32 Total Visit Minutes 10 Number of TEST FIXTURE DESIGNER Visits 0 Physical Therapy Visit Comments Patient Comments I feel ready to go home today . Therapy Pain Assessment Pain When Pain Assessed At Rest Pain Present Pain Present Pain Reported Location Neck Intensity 4 Scale Used Numeric (1 - 10) Description Aching M4 PT-IP Mobility and Gait Start: 04/04/18 13:10 Freq: NEEDED Status: Active Protocol: Document 04/04/18 11:43 MDD (Rec: 04/04/18 13:19 MDD [email or web address]) PT-Bed Mobility Assessment Rolling Type of Rolling Log Rolling Roll to Left Level of Assist Standby Assistance Supine to Sit Supine to Sit Standby Assistance Scooting Scooting to Edge of Bed Independent PT-Transfer Assessment Sit to and From Stand Sit to and from Stand Contact Guard Assistance Equipment Transfer Assistive Device Gait Belt Front Wheeled Walker Transfers Transfer Destination Chair Transfer Technique Stand Step Pivot Transfer Ability Level of Assist Contact Guard Assistance Gait Assessment Gait Gait Assistance Required: Contact Guard Assist Distance (Feet) (feet) 100 Assistive Devices Assistive Device Gait Belt Front Wheeled Walker Gait Deviations General Gait Pattern Within Normal Limits Flexed Trunk Comments Gait Comments Requires cues for posture with gait using FWW. Multiple standing breaks to allow dizziness to pass ( reports this is normal for him). PT-Balance Assessment Sitting Balance and Reactions Static Sitting Balance Ability Normal Dynamic Sitting Balance Ability Normal Balance Tests Romberg 1 small LOB backwards, required CGA to maintain balance M5 PT-IP Objective Assessments Start: 04/04/18 13:10 Freq: NEEDED Status: Active Protocol: Document 04/04/18 11:43 MDD (Rec: 04/04/18 13:19 MDD [email or web address]) Orientation Orientation/Cognition Level of Alertness Alert Orientation Name Age Birthday Month Date Year Day of Week Place Situation Language Function Ability No Deficits Noted Safety Awareness Understands Safety Issues Memory Description No Deficits Noted Gross Range of Motion Lower Extremity ROM Assessment Within Functional Limits Strength Lower Extremity Strength Assessment Within Functional Limits M6 PT-IP Treatment Start: 04/04/18 13:10 Freq: NEEDED Status: Active Protocol: Document 04/05/18 09:35 MDD (Rec: 04/05/18 09:38 MDD [email or web address]) Physical Therapy Treatment Other Treatments Other Treatment Performed Gait training 212 feet w/ FWW, cues for maintaining proximity to walker, decreasing reliance on UE's. Pt requires some cueing for pushing from chair armrests vs walker - able to identify and direct. M7 PT-IP Assessment and Plan Start: 04/04/18 13:10 Freq: NEEDED Status: Active Protocol: Document 04/05/18 09:35 MDD (Rec: 04/05/18 09:38 MDD [email or web address]) PT Summary Assessment and Plan Potential Rehabilitation Potential Excellent Status of Condition at Evaluation Stable Summary Impairments Pain Progress Towards Goals Safe For Discharge Goals Met Assessment Summary Pt demonstrating SBA for all bed mobility, transfers and gait this day. Considered safe to d/c home when medically appropriate. Goals Bed Mobility Goal Independent Transfer Goal Standby Assistance Gait Goal Standby Assistance Gait Distance 100 Other Goals Pt does not have stairs to enter, stairs are for downstairs area including additional family room, spare bedroom etc. Days to Meet Goals 2 Frequency of Treatment Frequency Of Treatment Discharge Treatment Plan Physical Therapy Treatment Plan Bed Mobility Training Gait Training Discharge Planning Recommendations To Nursing Amount of Assist Needed Standby Assistance Discharge Recommendations PT Discharge Recommendations Home with Assistance
--- NOTE | 2018-04-05 10:35 | OT.IP.TRT ---
Current Diagnoses Type 2 diabetes mellitus without complications (04/03/18) Benign paroxysmal vertigo, unspecified ear (04/03/18) Other spondylosis with radiculopathy, cervical region (04/03/18) Spinal stenosis, cervical region (04/03/18) Arthrodesis status (04/03/18) Surgery Performed Operation Date: 04/03/18 12:15 Actual Procedures p C5-6, C6-7 ACDF w/Anterior Kaley Doherty MD Occupational Therapy Treatment Note M2 OT-IP Current Condition Start: 04/04/18 10:47 Freq: Status: Active Protocol: Document 04/04/18 10:48 [facility] (Rec: 04/04/18 11:06 [facility] [id number]) Occupational Therapy Current Condition Current Condition Evaluation Date 04/04/18 Treatment Diagnosis C5-6, C6-7 anterior-cervical Discectomy and Fusion Diagnosis Onset Date 04/03/18 Post Operative Precautions Cervical Spine Precautions Soft Collar for Comfort No Heavy Lifting Log Roll Weight Bearing Status Weight Bearing Status Weight Bear as Tolerated M3 OT- IP Subjective and Pain Start: 04/04/18 10:47 Freq: Status: Active Protocol: Document 04/05/18 10:31 [facility] (Rec: 04/05/18 10:34 [facility] [email or web address]) OT- Subjective Occupational Therapy Visit Type Type Treatment Note Visit Start Time 10:05 Visit Stop Time 10:13 Total Visit Minutes 8 Occupational Therapy Visit Comments Patient Comments Pt happy to go home today. OT Pain Assessment Pain When Pain Assessed At Rest Pain Present Pain Present Pain Reported M4 OT- IP ADL's Start: 04/04/18 10:47 Freq: Status: Active Protocol: Document 04/05/18 10:31 [facility] (Rec: 04/05/18 10:34 [facility] [email or web address]) OT ADL-Dressing General Eval Upper Body Dressing Ability Standby Assistance Lower Body Dressing Ability Moderate Assistance Areas Needing Assistance Socks Shoes Comments OT Dressing Comments Pt's able to assist pt for LB dressing , safety and sequencing for ADl tasks. M6 OT- IP Functional Cognition Start: 04/04/18 10:47 Freq: Status: Active Protocol: Document 04/04/18 10:48 [facility] (Rec: 04/04/18 11:06 [facility] [id number]) Cognitive Factors Limiting Selfcare Function Cognitive Ability Level of Alertness Alert Patient Orientation Name Place Situation Attention Span Ability Capable of Focused Attention Capable of Sustained Attention Ability to Follow Commands Able to Follow Multi-Step Commands Memory Description No Deficits Noted Safety Awareness Decreased Ability to Apply Precautions Problem Solving Ability Needs Assist to Identify Solutions Cognitive Comments Cognitive Assessment Comments Mainly needing education to incorporate cervical precations for ADL's and functional mobility. OT- Vision and Hearing OT- Hearing Assessment OT- Hearing Assessment WFL M7 OT- IP Mobility and Balance Start: 04/04/18 10:47 Freq: Status: Active Protocol: Document 04/04/18 10:48 [facility] (Rec: 04/04/18 11:06 [facility] [id number]) OT-Transfer Assessment Sit to and From Stand Sit to and from Stand Contact Guard Assistance Transfers Transfer Ability Standby Assistance Contact Guard Assistance Technique Transfer Destination Chair Toilet Transfer Technique Stand Step Pivot Devices Transfer Assistive Devices Gait Belt Standard Walker Comments Mobility Comments CGA for occasional unsteadiness on his feet with FWW. Nursing states pt able to get up from the bed on his own earlier. Educated pt to be careful and look in front of him especially since they have a small dog who is now blind. OT- Gait Assessment Gait Gait Assistance Required: Standby Assistance Contact Guard Assist Able to Maintain Weight Bearing Status Yes During Gait Assistive Devices Assistive Device Gait Belt Standard Walker Comments Gait Ability Comments Occassional CGA for balance with FWW. OT- Balance Assessment Sitting Balance and Reactions Static Sitting Balance Ability Normal Dynamic Sitting Balance Ability Normal Standing Balance and Reactions Static Standing Balance Ability Good Dynamic Standing Balance Ability Fair M8 OT- IP Objective Assessments Start: 04/04/18 10:47 Freq: Status: Active Protocol: Document 04/04/18 10:48 [facility] (Rec: 04/04/18 11:06 [facility] [id number]) OT Gross Range of Motion Upper Extremity Range of Motion Assessment Within Functional Limits OT Strength Upper Extremity Strength Assessment Within Functional Limits OT-Muscle Tone Assessment Muscle Tone WNL Yes M9 OT- IP Assessment and Plan Start: 04/04/18 10:47 Freq: Status: Active Protocol: Document 04/05/18 10:31 [facility] (Rec: 04/05/18 10:34 [facility] [id number]) OT Summary Assessment and Plan Discharge Recommendations OT Discharge Recommendations Home with Assistance Home Equipment Needs Pt to get FWW.
--- NOTE | 2018-04-05 11:11 | PM.DS.1 ---
History of Present Illness Date Patient Seen: 04/05/18 Time Patient Seen: 07:30 Chief complaint: [id number] Narrative: Patient admitted for lumbar fusion Discharge Providers Date of admission: 04/03/18 10:29 Primary care physician: Jose De Jesus Moore MD Consults: 04/03/18 16:07 Consult to Occupational Therapy Evaluate & Treat Comment: Physician Instructions: Evaluate and treat Consult to Physical Therapy Evaluate & Treat Comment: Physician Instructions: Evaluate and Treat 04/04/18 09:39 Consult to Speech Therapy Evaluate & Treat Comment: Physician Instructions: Evaluate and treat Discharge provider: Chante Gillis PA-C Summary Discharge Diagnosis: Status post lumbar fusion Hypertension Hyperlipidemia Diabetes Hospital Course: Sotero was admitted for lumbar fusion with Dr. Du, and he consented to procedure. On postop day 2. He is feeling well and wanted to go home. He was ambulating well with the assistance of a walker. He was eating and voiding without difficulty or assistance. Has some discomfort with swallowing. He has ambulated with physical therapy. He plans to discharge home with his . On day of discharge dressing was CDI. Calves are soft, compressible, nontender bilaterally. Status at Discharge Functional status at discharge: uses cane/walker Exam Vital Signs (past 8 hours): - 04/05/18 03:15 04/05/18 09:02 Temperature 99.2 F 98.7 F Pulse Rate 76 72 Respiratory Rate 16 14 Blood Pressure 146/71 H 151/76 H Pulse Oximetry 96 96 Fraction of Inspired Oxygen 21 Oxygen Delivery Method Room Air Oxygen Flow Rate 0 Narrative Exam Narrative: The patient is sitting at bedside chair in no acute distress. He is alert and oriented x3. Wearing soft collar. Dressing on neck is CDI. Calves are soft, compressible, nontender bilaterally. Diesel Electrician strength is strong and equal. Sensation intact to light touch throughout bilateral upper extremities. Radial pulses symmetrical. Pain is adequately controlled. No complaints of muscle spasms, nausea, or vomiting. Objective Labs Result Diagrams: 04/04/18 05:49 Discharge Plan Discharge Plan Patient Disposition: Home, Self-Care Discharge comment: DC home today with Discharge Med Rec/Prescriptions Prescriptions: New docusate sodium 100 mg Capsule 100 mg PO BID Qty: 30 RF: 0 oxycodone 5 mg Tablet 5 mg PO Q4HR Qty: 60 RF: 0 hydroxyzine pamoate 25 mg Capsule 25 mg PO BEDTIME Qty: 10 RF: 0 Continue multivitamin [Multiple Vitamins] 1 EACH tablet 1 tab PO QDAY Qty: 0 RF: 0 escitalopram oxalate [Lexapro] 10 MG tablet 10 mg PO PRN PRN (Reason: Anxiety) Qty: 0 RF: 0 levothyroxine 25 MCG tablet 75 mcg PO QAM Qty: 0 RF: 0 tamsulosin [Flomax] 0.4 MG capsule,extended release 24hr 0.4 mg PO BEDTIME Qty: 0 RF: 0 aspirin 81 mg Tablet,Delayed Release (Dr/Ec) 81 mg PO DAILY RF: 0 metformin 500 mg Tablet 1,000 mg PO BID RF: 0 metoprolol tartrate 50 mg Tablet 25 mg PO BEDTIME RF: 0 acetaminophen [Tylenol Arthritis Pain] 650 mg Tablet Extended Release 650 mg PO Q8H PRN (Reason: pain) RF: 0 pravastatin 10 mg Tablet 5 mg PO BEDTIME RF: 0 insulin glargine [Lantus Solostar U-100 Insulin] 100 unit/mL (3 mL) Insulin Pen 20 unit SUB-Q BEDTIME RF: 0 duloxetine [Cymbalta] 30 MG capsule,delayed release(DR/EC) 30 mg PO BEDTIME RF: 0 Follow up/Referrals: Jose De Jesus Moore MD [Primary Care Provider] - (Please follow-up with PCP to manage blood sugars DR MOORE [phone]) Mayda Du MD [Physician] - (Please follow up in 10-[address] DU [phone] ) Provider Discharge Instructions Diet: Diet as Tolerated Activity: No excessive bending, lifting, or twisting. Soft collar for comfort Wound Care Report to your healthcare provider any signs of infection, such as:: chills, fever and increased pain Dressing: Please leave dressing on until follow-up with PA-C Visit Report/Discharge Packet Instructions: DI for Anterior Cervical Discectomy and Fusion, Oxycodone, Hydroxyzine Visit Report Forms: Stroke Signs & Symptoms Discharge Data Primary Care Provider: Jose De Jesus Moore Attending Provider: Mayda Du Admit Date/Time: 04/03/18 10:29 Quality VTE Deep Vein Thrombosis/Pulmonary Embolism Present on Admission: No
== END 2018-04-05 11:10 | disposition home or self-care (01) | DRG 473 ==
PROVIDERS: Admitting Provider Orthopaedic Surgery Orthopaedic Surgery of the Spine; PCP Family Medicine; Visit Provider Orthopaedic Surgery Orthopaedic Surgery of the Spine
PROC: 0RG20A0 Fusion of 2 or more Cervical Vertebral Joints with Interbody Fusion Device, Anterior Approach, Anterior Column, Open Approach (ICD-10-PCS; principal; 2018-04-03 12:15)
DX: M47.22 Other spondylosis with radiculopathy, cervical region (principal); E07.9 Disorder of thyroid, unspecified; I10 Essential (primary) hypertension; E78.5 Hyperlipidemia, unspecified; E11.9 Type 2 diabetes mellitus without complications; Z79.4 Long term (current) use of insulin; Z95.0 Presence of cardiac pacemaker; Z86.73 Personal history of transient ischemic attack (TIA), and cerebral infarction without residual deficits; M48.02 Spinal stenosis, cervical region; H81.10 Benign paroxysmal vertigo, unspecified ear
CPT/HCPCS: 36415; 72040; 76001; 82962; 85014; 85018; 94760; 97116; 97161; 97165; 97530; 97535; C1776; J0690; J1030; J1170; J2405; J2704; J3010

== ENCOUNTER → 2018-06-19 14:41 | Outpatient (CLI) | payer MEDICARE, OTHER, SELFPAY ==
[2018-04-03 16:32] VITALS: BMI 29.3
--- NOTE | 2018-06-19 | DI.US.S_ITS ---
PROCEDURE: US CAROTID DOPPLER BI INDICATIONS: UNKNOWN TECHNIQUE: Color and pulse Doppler interrogation was performed of both carotid systems, with image documentation and velocity measurements. COMPARISON: [facility], , STROKE PROTOCOL A, 11/29/2007, 8:24. [facility], , CAROTID ARTERY DOPPLER BILAT, 12/23/2013, 11:15. [facility], , CAROTID ARTERY DOPPLER BILAT, 07/14/2017, 10:30. FINDINGS: Stenosis calculations are based on SRU (Society of Radiologists in Ultras[employer]) criteria. Right side: Brachial blood pressure: 109/64 mm Hg. Common carotid artery peak systolic velocity: 81 cm/sec (prior 71 cm/s). Internal carotid artery peak systolic velocity: 113 cm/sec (prior 97 cm/s). Internal carotid artery end diastolic velocity: 26 cm/sec (prior 27 cm/s). External carotid artery peak systolic velocity: 152 cm/sec (prior 123 cm/s). ICA/CCA peak systolic ratio: 1.4 (prior 1.37). Luciano scale imaging description: Moderate atherosclerotic changes are seen. Percent internal carotid artery stenosis: Less than 50% by velocity criteria Vertebral artery: Flow direction is antegrade. Left side: Brachial blood pressure: 114/61 mm Hg. Common carotid artery peak systolic velocity: 83 cm/sec (prior 63 cm/s). Internal carotid artery peak systolic velocity: 115 cm/sec (prior 125 cm/s). Internal carotid artery end diastolic velocity: 28 cm/sec (prior 27 cm/s). External carotid artery peak systolic velocity: 134 cm/sec (prior 87 cm/s). ICA/CCA peak systolic ratio: 1.38 (prior 1.99). Luciano scale imaging description: Moderate atherosclerotic changes are seen. Percent internal carotid artery stenosis: Less than 50% by velocity criteria Vertebral artery: Flow direction is antegrade. IMPRESSION: Now there is less than 50% narrowing of the internal carotid arteries by velocity criteria. Dictated by: Good Peña M.D. on 06/19/2018 at 15:18 Approved by: Good Peña M.D. on 06/19/2018 at 15:21
== END ==
PROVIDERS: PCP Family Medicine; Visit Provider Psychiatry & Neurology Neurology
DX: I65.23 Occlusion and stenosis of bilateral carotid arteries (principal)
CPT/HCPCS: 93880

== ENCOUNTER 2018-06-29 00:58 | Observation (INO) | payer MEDICARE, OTHER, SELFPAY ==
[2018-04-03 16:32] VITALS: BMI 29.3
[2018-06-29] VITALS (9 sets, daily range): BP systolic 105–171; BP diastolic 60–78; PULSE 65–85; RESP 15–18; TEMP 36.3–36.8; O2SAT 94–99; BMI 27.6
--- NOTE | 2018-06-29 01:11 | DI.RAD.S_ITS ---
PROCEDURE: XR CHEST 1V INDICATIONS: chest pain TECHNIQUE: One view of the chest was acquired. COMPARISON: [facility], , CHEST 1 VIEW, 05/10/2017, 15:22. FINDINGS: Surgical changes and devices: Cervical spine fixation hardware partially visualized. Cardiac pacer. Each Lungs and pleura: No pleural effusions or pneumothorax. Lung volumes are low. No acute consolidation. There is scattered subsegmental atelectasis and/or scarring Mediastinum: Mediastinal contours appear normal. Heart size is normal. Bones and chest wall: No suspicious bony lesions. Overlying soft tissues appear unremarkable. IMPRESSION: No acute consolidation. Dictated by: Zbigniew Duong M.D. on 06/29/2018 at 9:13 Approved by: Zbigniew Duong M.D. on 06/29/2018 at 9:15
[2018-06-29 01:23] LABS: INR 1.1 (0.9-1.3); Prothrombin Time 11.5 SECONDS (10.1-12.7)
[2018-06-29 01:26] LABS: PTT Partial Thromboplastin Tim 31 SECONDS (26.4-36.2)
[2018-06-29 01:28] LABS: Add Manual Diff / Slide Review NO; Alanine Aminotransferase 24 IU/L (21-72); Albumin 4.4 g/dL (3.5-5.0); Albumin Globulin Ratio 1.6 (1.0-2.8); Alkaline Phosphatase 63 U/L (38-126); Aspartate Aminotransferase 22 IU/L (17-59); Basophils Percent Auto 0.7 % (0-2); Bilirubin Total 0.5 mg/dL (0.2-1.3); Blood Urea Nitrogen 17 mg/dL (9-20); Calcium 9.6 mg/dL (8.4-10.2); Carbon Dioxide 27 mmol/L (22-32); Chloride 99 mmol/L (98-107); Creatine Kinase 47 U/L (55-170); Estimated Glomerular Filt Rate > 60.0 mL/min (>60); Globulin 2.7 g/dL (1.7-4.1); Glucose 171 mg/dL (80-110); HEMOLYSIS < 15 (0-50); Hematocrit 39.9 % (41-53); Hemoglobin 13.9 g/dL (13.5-17.5); Lipase 240 U/L (23-300); Lymphocytes Percent Auto 41.5 % (25-40); Mean Corpuscular HGB Conc 34.7 % (30-36); Mean Corpuscular Hemoglobin 32.6 PG (26-34); Mean Corpuscular Volume 94.1 fL (80-100); Monocytes Percent Auto 9.8 % (3-14); Neutrophils Absolute Auto 2600 /uL (3000-5900); Platelet Count 213 X10^3/uL (150-400); Potassium 4.1 mmol/L (3.4-5.1); Red Blood Cell Count 4.24 X10^6/uL (4.5-5.9); Red Cell Distribution Width 13.6 % (11.6-14.8); Sodium 140 mmol/L (137-145); Total Protein 7.1 g/dL (6.3-8.2); White Blood Cell Count 5.6 X10^3/uL (4.5-11.0)
[2018-06-29] MEDS: SODIUM CHLORIDE 0.9% 1,000 ML 150 ML IV (01:29)
--- NOTE | 2018-06-29 01:33 | ED_ITS ---
HPI - Chest Pain General Chief Complaint: Chest Pain Stated Complaint: CHEST PAIN OFF/ON 45 MIN Time Seen by Provider: 06/29/18 01:20 Source: patient and family () Mode of arrival: ambulatory Limitations: no limitations History of Present Illness HPI narrative: This is an 83-year-old male who comes to the emergency department with complaint of chest pain. Patient states chest pain started about 8 o'clock this evening. Um it had been intermittent and then about 45 min prior to arrival became constant. He points to the area just left to his sternum. Denies any radiation. States movement does make it worse. He has felt a little short of breath. He has had a productive cough with brownish sputum. He denies any fevers, he has had a recent upper respiratory infection he is just getting better from. Patient has not had any nausea or vomiting, no GI or urinary symptoms. He has not had any swelling in his lower extremities, no abdominal pain. He has felt lightheaded like he might pass out when getting up from a sitting or lying position to a standing position. He has not had similar symptoms in the past. He does have a cardiac history with a pacemaker trauma his states he has coronary artery disease of a small vessel in the back of his heart which was noted when his pacemaker was placed 5 years ago. He does not have any stents. He has not had any recent stress test. Patient took aspirin 324 mg prior to arrival. Related Data Home Medications Medication Instructions Recorded Confirmed escitalopram oxalate [Lexapro] 10 mg PO PRN PRN #0 05/10/17 03/28/18 levothyroxine 75 mcg PO QAM #0 05/10/17 04/03/18 multivitamin [Multiple Vitamins] 1 tab PO QDAY #0 05/10/17 03/27/18 tamsulosin [Flomax] 0.4 mg PO BEDTIME #0 09/07/17 03/28/18 aspirin 81 mg PO DAILY 03/27/18 04/03/18 metformin 1,000 mg PO BID 03/27/18 03/28/18 metoprolol tartrate 25 mg PO BEDTIME 03/27/18 04/03/18 acetaminophen [Tylenol Arthritis 650 mg PO Q8H PRN 03/28/18 04/03/18 Pain] duloxetine [Cymbalta] 30 mg PO BEDTIME 03/28/18 03/28/18 insulin glargine [Lantus Solostar 20 unit SUB-Q BEDTIME 03/28/18 03/28/18 U-100 Insulin] pravastatin 5 mg PO BEDTIME 03/28/18 03/28/18 Previous Rx's Medication Instructions Recorded docusate sodium 100 mg PO BID #30 cap 04/05/18 hydroxyzine pamoate 25 mg PO BEDTIME #10 cap 04/05/18 oxycodone 5 mg PO Q4HR #60 tab 04/05/18 Allergies Allergy/AdvReac Type Severity Reaction Status Date / Time Eawdiiw-[id number]-[id number] Reductase Allergy Intermediate MUSCLE PAIN Unverified 12/27/17 11:44 Inhibitor [[id number] REDUCTASE INHIBITOR] piroxicam [PIROXICAM] Allergy Mild NAUSEA, Unverified 12/27/17 11:44 VOMITING dabigatran etexilate AdvReac Hematuria Verified 03/27/18 09:45 Review of Systems Review of Systems All systems reviewed & are unremarkable except as noted in HPI and below Constitutional Denies fever(s) Cardiovascular Reports chest pain, Denies diaphoresis, Denies syncope, Denies leg edema, Reports lightheadedness, Denies radiating jaw, neck or arm pain, Denies palpitations, Reports dyspnea and Denies orthopnea Respiratory Reports chest congestion, Reports cough, Reports excessive phlegm production ( Brownish in color), Reports pain on inspiration, Reports dyspnea and Denies wheezing Gastrointestinal Gastrointestinal: Denies abdominal pain, Denies constipation, Denies diarrhea, Denies nausea and Denies vomiting Musculoskeletal Reports back pain (Chronic) Integumentary/Breasts Denies rash Neurologic Denies syncope Endocrine Denies palpitations Allergic/Immunologic Denies wheezing PFSH Medical History Anxiety (Acute) CAD (coronary artery disease) (Acute) DDD (degenerative disc disease), cervical (Acute) Depression (Acute) Diabetes (Acute) Dyslipidemia (Acute) Dysuria (Acute) Elevated serum homocysteine level (Acute) History of CVA (cerebrovascular accident) (Acute) History of angina (Acute) History of dizziness (Acute) History of esophageal reflux (Acute) History of fatigue (Acute) History of hematuria (Acute) Impotence (Acute) Lumbosacral radiculopathy at L5 (Acute) Memory deficit (Acute) Neuropathy of both feet (Acute) Osteoarthritis (Acute) Pacemaker (Acute ~2013) Paroxysmal A-fib (Acute) Psychosexual dysfunction (Acute) RBBB (Acute) Renal insufficiency (Acute) Sick sinus syndrome (Acute) Sleep apnea (Acute) Spinal stenosis in cervical region (Acute) Spinal stenosis of lumbar region (Acute) TIA (transient ischemic attack) (Acute) Urinary retention (Acute) Surgical History H/O laminectomy (Acute) H/O shoulder surgery (Acute) H/O thumb surgery (Acute) History of appendectomy (Acute) History of bladder surgery (Acute) History of cardiac cath (Acute ~2012) History of cholecystectomy (Acute ~2012) History of cystoscopy (Acute) History of lumbar fusion (Acute) History of tonsillectomy (Acute) History of vasectomy (Acute) Status post right foot surgery (Acute) Social History Smoking Status: Never smoker alcohol intake: current substance use type: does not use Exam Narrative Exam Narrative: GENERAL: Alert and oriented x three, well-nourished, well- appearing male in moderate distress. HEENT: Head normocephalic, atraumatic, EOMI, pupils reactive, face symmetric, moist mucous membranes NECK: Supple, full range of motion CARDIOVASCULAR: Regular rate and rhythm without murmurs, rubs or gallops. No rash on anterior chest. No pain with palpation. Patient does have increase in pain with leaning forward with assistance. RESPIRATORY: Breath sounds equal bilaterally, no wheezes rales or rhonchi. ABDOMEN: Soft, nontender. Normoactive bowel sounds all 4 quadrants. No guarding or rebound, rigidity, no mass : No CVA tenderness EXTREMITIES: Normal range of motion, no edema. Neurovascularly intact NEUROLOGICAL: Cranial nerves II through XII grossly intact. Moving all extremities SKIN: Warm, dry, no petechiae, no rashes or lesions. Initial Vital Signs Initial Vital Signs: Vital Signs Temperature 97.9 F 06/29/18 01:10 Pulse Rate 85 06/29/18 01:10 Respiratory Rate 15 06/29/18 01:10 Blood Pressure 171/78 H 06/29/18 01:10 Pulse Oximetry 94 06/29/18 01:10 Scores HEART Score Heart Score history: Moderately Suspicious Heart Score EKG: Normal Heart Score Age: > or = 65 years old Heart Score risk factors: > 3 risk factors or hx of atherosclerotic disease Heart Score troponin: < or = to normal limit Heart Score Total: 5 Course Orders Ordered: ED Orders 06/29/18 01:08 B Type Natriuretic Peptide Stat Complete Blood Count AUTO DIFF Stat Comprehensive Metabolic Panel Stat Lipase Stat Partial Thromboplastin Time Stat Prothrombin Time INR Stat Troponin & CK Cardiac Panel Stat 06/29/18 01:11 XR chest 1V Stat 06/29/18 04:15 Troponin I Stat Sodium Chloride (Normal Saline 0.9%) 1,000 mls @ 150 mls/hr IV CONT ALLA Last Infusion: 06/29/18 03:19 Dose: 150 mls/hr Admin: 06/29/18 01:29 Dose: 150 mls/hr Sodium Chloride (Normal Saline 0.9%) 1,000 mls @ 125 mls/hr IV CONT ALLA Nitroglycerin (Nitrostat) 0.4 mg SL [id number] PRN PRN Reason: Chest Pain Last Admin: 06/29/18 01:42 Dose: 0.4 mg Admin: 06/29/18 01:35 Dose: 0.4 mg Reevaluation(s) Reevaluation #1: Recheck after nitro sublingual-patient's chest pain has resolved after 2 nitro Consultations Consultation #1: Spoke with Dr. Hinojosa who accepts the patient for chest pain observation he does ask for bridging orders and a repeat troponin 3 hr from initial. Time: 02:32 Vital Signs - 8 hr 06/29/18 01:10 06/29/18 01:40 06/29/18 01:48 Temperature 97.9 F Pulse Rate 85 80 82 Respiratory Rate 15 Blood Pressure 171/78 H Blood Pressure [Right Arm] 105/62 106/60 Pulse Oximetry 94 06/29/18 01:50 06/29/18 02:33 06/29/18 03:12 Temperature Pulse Rate 84 72 66 Respiratory Rate 18 18 Blood Pressure 114/64 130/68 Blood Pressure [Right Arm] 129/76 Pulse Oximetry 96 97 MDM - Chest Pain Lab Data Attestation: I reviewed the patient's lab results. Result diagrams: 06/29/18 01:08 06/29/18 01:08 Lab Results 06/29/18 06/29/18 06/29/18 Range/Units 01:08 01:08 01:08 WBC 5.6 (4.5-11.0) X10^3/uL RBC 4.24 L (4.5-5.9) X10^6/uL Hgb 13.9 (13.5-17.5) g/dL Hct 39.9 L (41-53) % MCV 94.1 (80-100) fL MCH 32.6 (26-34) PG MCHC 34.7 (30-36) % RDW 13.6 (11.6-14.8) % Plt Count 213 (150-400) X10^3/uL Neut % (Auto) 47.0 L (50-75) % Lymph % (Auto) 41.5 H (25-40) % [place] % (Auto) 9.8 (3-14) % Eos % (Auto) 1.0 L (2-4) % Baso % (Auto) 0.7 (0-2) % Neut # (Auto) 2600 L (1524-7009) /uL PT 11.5 (10.1-12.7) SECONDS INR 1.1 (0.9-1.3) APTT 31 (26.4-36.2) SECONDS Sodium 140 (137-145) mmol/L Potassium 4.1 (3.4-5.1) mmol/L Chloride 99 (98-107) mmol/L Carbon Dioxide 27 (22-32) mmol/L BUN 17 (9-20) mg/dL Creatinine 1.00 (0.66-1.25) mg/dL Estimated GFR > 60.0 (>60) mL/min BUN/Creatinine Ratio 17.0 (6-22) Glucose 171 H (80-110) mg/dL Calcium 9.6 (8.4-10.2) mg/dL Total Bilirubin 0.5 (0.2-1.3) mg/dL AST 22 (17-59) IU/L ALT 24 (21-72) IU/L Alkaline Phosphatase 63 (38-126) U/L Total Creatine Kinase 47 L (55-170) U/L CK-MB (CK-2) TNP CK-MB (CK-2) Rel Index TNP Troponin I < 0.012 (0.01-0.034) ng/mL B-Natriuretic Peptide 32.5 (<100) Total Protein 7.1 (6.3-8.2) g/dL Albumin 4.4 (3.5-5.0) g/dL Globulin 2.7 (1.7-4.1) g/dL Albumin/Globulin Ratio 1.6 (1.0-2.8) Lipase 240 (23-300) U/L Imaging Data Chest x-ray: My impression: No acute process noted. No pneumothorax. Mediastinum is not widened. Patient does not have any infiltrate. ECG Data Attestation: I personally reviewed and interpreted this ECG as follows: Prior ECG tracings: available for review Interpretation: Sinus rhythm first-degree AV block. Rate of 82, P are 237, QRS of 158, QTC of 440. Right bundle branch block. Left anterior fascicular block. Patient has EKG from 03/26/2018 that appears similar in ST segments. Discharge Plan Departure Patient Disposition: Admitted as Observation Clinical Impression: Chest pain Discharge Date/Time: 06/29/18 03:18 Interventions: ED Discharge Assessment Last Done: 06/29/18 03:12 Admit Date/Time: 06/29/18 02:33 Admit Provider: Ramana Hinojosa
[2018-06-29] MEDS: NITROGLYCERIN 0.4 MG SL TAB SL ×2 (01:35→01:42)
[2018-06-29 01:42] LABS: Troponin I < 0.012 ng/mL (0.01-0.034)
[2018-06-29 01:46] LABS: B Type Natriuretic Peptide 32.5 (<100)
--- NOTE | 2018-06-29 04:17 | PC.NURSE ---
0320 admitted to room 219 from ER, oriented to his room. Showed how to use his call light TV & bed controls. Reported had a fall in the last 3 mos. initiated fall precautions. Denies any CP on admit, tired & wants to sleep, will cont. POC & monitor.
[2018-06-29 04:52] LABS: Troponin I 0.024 ng/mL (0.01-0.034)
--- NOTE | 2018-06-29 05:43 | PC.NURSE ---
0535 -Voided 300 cc of dark yellow urine, sample collected & sent to the lab. Denies any CP, no C/O dyspnea, will monitor.
[2018-06-29 06:02] LABS: Bacteria Urine None Seen
[2018-06-29 06:09] LABS: Appearance Urine UA CLEAR; Bilirubin Urine UA NEGATIVE (NEGATIVE); Color Urine UA YELLOW; Glucose Urine UA NEGATIVE (Normal); Ketones Urine UA NEGATIVE (NEGATIVE); Leukocyte Esterase Urine UA NEGATIVE (NEGATIVE); Nitrite Urine UA Negative (Negative); Occult Blood Urine UA NEGATIVE (Negative); Protein Urine UA NEGATIVE (Negative); Specific Gravity Urine UA 1.015 (1.000-1.035); Urobilinogen Urine UA 0.2 E.U./dL (0.2); pH Urine UA 5.5 (4.5-8.0)
[2018-06-29 06:43] LABS: Amorphous Sediment Urine 2+; Culture Indicated Urine Cult Not Indicated; RBC Urine 0-1/HPF (0-5/HPF); WBC Urine 0-1/HPF (0-5/HPF)
[2018-06-29 09:17] LABS: Troponin I 0.017 ng/mL (0.01-0.034)
[2018-06-29] MEDS: SODIUM CHLORIDE 0.9% 1,000 ML 125 ML IV (10:21)
--- NOTE | 2018-06-29 12:06 | PM.HP.1 ---
History of Present Illness Date Patient Seen: 06/29/18 Time Patient Seen: 06:00 Chief complaint: CHEST PAIN OFF/ON 45 MIN Narrative: [age] years of age male presents to the emergency room last evening complaining of a chest pain that came on at rest. No documented history of significant atherosclerotic heart disease. Patient had a pacemaker placed about 5 years ago for sick sinus syndrome. At the time there was minimal atherosclerotic heart disease that was mentioned to the patient and his . Patient normally takes 1 baby aspirin per day. Patient notes having some GERD reflux symptoms in the past week. In the emergency room patient was given several nitro which appeared to give relief to the patient for the chest pain. Patient was admitted under observation for further workup. Patient had no associated diaphoresis nor radiation of discomfort to the jaw or to the shoulders. No nausea noted either Patient noted on further questioning by me directly that the chest discomfort appeared to be related to certain arm movements. Chest pain came on at about 8:00 p.m. in the evening June 28. Patient History Medical History Anxiety (Acute) CAD (coronary artery disease) (Acute) DDD (degenerative disc disease), cervical (Acute) Depression (Acute) Diabetes (Acute) Dyslipidemia (Acute) Dysuria (Acute) Elevated serum homocysteine level (Acute) History of CVA (cerebrovascular accident) (Acute) History of angina (Acute) History of dizziness (Acute) History of esophageal reflux (Acute) History of fatigue (Acute) History of hematuria (Acute) Impotence (Acute) Lumbosacral radiculopathy at L5 (Acute) Memory deficit (Acute) Neuropathy of both feet (Acute) Osteoarthritis (Acute) Pacemaker (Acute ~2013) Paroxysmal A-fib (Acute) Psychosexual dysfunction (Acute) RBBB (Acute) Renal insufficiency (Acute) Sick sinus syndrome (Acute) Sleep apnea (Acute) Spinal stenosis in cervical region (Acute) Spinal stenosis of lumbar region (Acute) TIA (transient ischemic attack) (Acute) Urinary retention (Acute) Surgical History H/O laminectomy (Acute) H/O shoulder surgery (Acute) H/O thumb surgery (Acute) History of appendectomy (Acute) History of bladder surgery (Acute) History of cardiac cath (Acute ~2012) History of cholecystectomy (Acute ~2012) History of cystoscopy (Acute) History of lumbar fusion (Acute) History of tonsillectomy (Acute) History of vasectomy (Acute) Status post right foot surgery (Acute) Comment: Social history Patient is . No history of smoking. No alcohol abuse history Surgical history Patient had the pacemaker placed about 5 years ago. Patient has had multiple surgeries to the knee the back to the neck region related to osteoarthritis Family history No early heart disease in 1st degree relatives Family & Social History Social History: household members spouse,children Prior Living Arrangements House Safety & Behavioral: Feels Safe in Current Yes Environment Been Physically Hurt or No Threatened By a Person Suicidal Ideation Description None Suicide Plan Description No Plan Tobacco & Substance use: Smoking Status Never smoker alcohol intake current alcohol intake frequency holiday/special occasion Substance Use Type does not use Meds Home Medications Medication Instructions Recorded Confirmed Type escitalopram oxalate [Lexapro] 10 mg PO PRN PRN #0 05/10/17 06/29/18 History levothyroxine 75 mcg PO QAM #0 05/10/17 06/29/18 History multivitamin [Multiple Vitamins] 1 tab PO QDAY #0 05/10/17 06/29/18 History tamsulosin [Flomax] 0.4 mg PO BEDTIME #0 09/07/17 06/29/18 History aspirin 81 mg PO DAILY 03/27/18 06/29/18 History metformin 1,000 mg PO BIDWM 03/27/18 06/29/18 History metoprolol tartrate 25 mg PO BEDTIME 03/27/18 06/29/18 History acetaminophen [Tylenol Arthritis 650 mg PO Q8H PRN 03/28/18 06/29/18 History Pain] duloxetine [Cymbalta] 30 mg PO BEDTIME 03/28/18 06/29/18 History insulin glargine [Lantus Solostar 20 unit SUB-Q BEDTIME 03/28/18 06/29/18 History U-100 Insulin] pravastatin 5 mg PO BEDTIME 03/28/18 06/29/18 History Allergies Allergy/AdvReac Type Severity Reaction Status Date / Time Afwoyqe-Sxm-Tzs Reductase Allergy Intermediate MUSCLE PAIN Verified 06/29/18 04:30 Inhibitor [[id number] REDUCTASE INHIBITOR] piroxicam [PIROXICAM] Allergy Mild NAUSEA, Verified 06/29/18 04:31 VOMITING dabigatran etexilate AdvReac Hematuria Verified 03/27/18 09:45 Review of Systems Review of Systems A 10 point system review was negative except for the symptoms as described that the chest pain that appeared to be worsened with certain arm movements. No associated nausea no rated pain to the jaw or shoulder no diaphoresis Exam Vital Signs (past 8 hours): - 06/29/18 08:00 Temperature 98.3 F Pulse Rate 65 Respiratory Rate 16 Blood Pressure 124/72 Pulse Oximetry 99 Oxygen Delivery Method Room Air Narrative Exam Narrative: General appearance patient is awake and alert in no apparent distress Psychiatric well oriented to time place and person mood is pleasant affect is appropriate Skin no rashes or lesions turgor is normal nonjaundiced Eyes pupils are equal round and reactive to light Ears nose and throat hearing is grossly intact nose is septum to midline no bleeding no oropharyngeal lesions Respiratory clear to auscultation no wheezes no crackles good air flow noted Cardiovascular regular rate rhythm no murmurs +3 pulses to extremities Chest wall reproducible chest wall tenderness to palpation noted. Patient notes this is the same pain that he has been having but intensified with the pressure a palpation to the chest during my exam GI is benign soft nontender positive bowel sounds no pedal splenomegaly no bruits Neurologic no focal neurologic changes cranial nerves 2-12 grossly intact Musculoskeletal strength 5/5 clubbing noted range of motion is normal Objective Labs Result Diagrams: 06/29/18 01:08 06/29/18 01:08 Labs: Laboratory Results - last 24 hr 06/29/18 06/29/18 06/29/18 01:08 01:08 01:08 WBC 5.6 RBC 4.24 L Hgb 13.9 Hct 39.9 L MCV 94.1 MCH 32.6 MCHC 34.7 RDW 13.6 Plt Count 213 Neut % (Auto) 47.0 L Lymph % (Auto) 41.5 H [place] % (Auto) 9.8 Eos % (Auto) 1.0 L Baso % (Auto) 0.7 Neut # (Auto) 2600 L PT 11.5 INR 1.1 APTT 31 Sodium 140 Potassium 4.1 Chloride 99 Carbon Dioxide 27 BUN 17 Creatinine 1.00 Estimated GFR > 60.0 BUN/Creatinine Ratio 17.0 Glucose 171 H Calcium 9.6 Total Bilirubin 0.5 AST 22 ALT 24 Alkaline Phosphatase 63 Total Creatine Kinase 47 L CK-MB (CK-2) TNP CK-MB (CK-2) Rel Index TNP Troponin I < 0.012 B-Natriuretic Peptide 32.5 Total Protein 7.1 Albumin 4.4 Globulin 2.7 Albumin/Globulin Ratio 1.6 Lipase 240 Urine Color Urine Appearance Urine pH Ur Specific [place] Urine Protein Urine Glucose (UA) Urine Ketones Urine Occult Blood Urine Nitrate Urine Bilirubin Urine Urobilinogen Ur Leukocyte Esterase Urine RBC Urine WBC Amorphous Sediment Urine Bacteria Ur Culture Indicated? Micro UA Comment 06/29/18 06/29/18 06/29/18 04:20 05:35 06:53 WBC RBC Hgb Hct MCV MCH MCHC RDW Plt Count Neut % (Auto) Lymph % (Auto) [place] % (Auto) Eos % (Auto) Baso % (Auto) Neut # (Auto) PT INR APTT Sodium Potassium Chloride Carbon Dioxide BUN Creatinine Estimated GFR BUN/Creatinine Ratio Glucose Calcium Total Bilirubin AST ALT Alkaline Phosphatase Total Creatine Kinase CK-MB (CK-2) CK-MB (CK-2) Rel Index Troponin I 0.024 0.017 B-Natriuretic Peptide Total Protein Albumin Globulin Albumin/Globulin Ratio Lipase Urine Color Yellow Urine Appearance Clear Urine pH 5.5 Ur Specific [place] 1.015 Urine Protein Negative Urine Glucose (UA) Negative Urine Ketones Negative Urine Occult Blood Negative Urine Nitrate Negative Urine Bilirubin Negative Urine Urobilinogen 0.2 Ur Leukocyte Esterase Negative Urine RBC 0-1/hpf Urine WBC 0-1/hpf Amorphous Sediment 2+ Urine Bacteria None seen Ur Culture Indicated? Cult not indicated Micro UA Comment Not Reportable Assessment & Plan Plan: Assessment/Plan Narrative: Atypical chest pain Patient was admitted to the hospital under observation. Repeat troponin was done at 3 and 6 hr. No significant change in the troponin was noted Repeat 12 lead EKG was done at 7:00 a.m. in the morning. No no acute ST or T-wave changes were apparent. 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 Smith who admits his own patients. Dr. Smith suggested I provide continued care if patient is to be discharged instead of further workup From Dr. Smith the standpoint he would be okay with patient being discharged and he will see the patient in his office. History of hyperlipidemia Continue the statin medication as tolerated Diabetes type 2 on long-term insulin Continue his home medication as tolerated ADA diet Time Spent With Patient Time with patient: Greater than 35 minutes (50 min) Quality VTE Deep Vein Thrombosis/Pulmonary Embolism Present on Admission: No
--- NOTE | 2018-06-29 12:30 | P.DS_ITS ---
History of Present Illness Date Patient Seen: 06/29/18 Time Patient Seen: 12:29 Chief complaint: CHEST PAIN OFF/ON 45 MIN Narrative: [age] years of age male presents to the emergency room last evening complaining of a chest pain that came on at rest. No documented history of significant atherosclerotic heart disease. Patient had a pacemaker placed about 5 years ago for sick sinus syndrome. At the time there was minimal atherosclerotic heart disease that was mentioned to the patient and his . Patient normally takes 1 baby aspirin per day. Patient notes having some GERD reflux symptoms in the past week. In the emergency room patient was given several nitro which appeared to give relief to the patient for the chest pain. Patient was admitted under observation for further workup. Patient had no associated diaphoresis nor radiation of discomfort to the jaw or to the shoulders. No nausea noted either Patient noted on further questioning by me directly that the chest discomfort appeared to be related to certain arm movements. Chest pain came on at about 8: 00 p.m. in the evening June 28. Discharge Providers Date of admission: 06/29/18 02:33 Primary care physician: Jose De Jesus Smith MD Discharge provider: Ramana Hinojosa MD Discharge Date: 06/29/18 Summary Discharge Diagnosis: Atypical chest pain On exam patient with a reproducible chest wall tenderness the patient notes is the same quality pain he has been having on and off since 8:00 p.m. last evening. Patient notes the chest pain is precipitated by certain arm movements. Troponins done serially were negative. Twelve lead EKG was done initially in follow-up in a.m. today no acute ST T wave changes were noted EKG did show a right bundle branch and left anterior fascicular block I spoke to Dr. Tarah villanueva and the traffic maintenance officer diabetes education coordinator today who noted patient would be appropriate for discharge and follow up with Dr. Smith his PCP when next available. Since patient did have apparently some relief with nitroglycerin regarding the chest pain I am suspicious of maybe some underlying reflux disease as another potential cause of atypical chest pain Patient will be continued on Protonix each morning. Patient will remain on his aspirin that he normally takes once daily 81 mg. I spoke to Dr. Smith by telephone who will see patient in follow-up. Personnel Clerks Supervisor recommended patient see his PCP 1st 2 would then proceed with further workup as indicated. Personnel Clerks Supervisor could be consulted through the PCP is what Dr. Roca recommended. Will also provide a bottle of nitroglycerin and he can have at home in the event of a chest pain. Patient is directed to return to the ER if he has any concerns or increased chest discomfort. Diabetes type 2 on insulin long-term Resume his usual dose of his diabetic meds in the home setting Hyperlipidemia Continue his usual dose of his hyperlipidemia medication. Hospital Course: Patient admitted to the hospital in prepleater hours chest pain-free. I witnessed patient at bedside actually having some of the grimacing when he moved his arm in a certain position. Patient also noted to have chest wall tenderness on palpation the patient says is the same quality of the chest pain he had since 8:00 p.m. last night. No previous similar episode. I had discussions with Dr. Smith the patient's PCP as well as Dr. Rascon while the traffic maintenance officer diabetes education coordinator. I discussed the patient's past medical history and present clinical picture. Dr. Smith and Dr. Marta villanueva were both in support the patient could be discharged with no further workup at this time. I did ask if the patient should undergo an echocardiogram while he is here and Dr. Rascon well as preferred the further workup in the outpatient setting as indicated. Status at Discharge Cognitive/behavioral status at discharge: Patient is well oriented in no apparent distress Exam Vital Signs (past 8 hours): - 06/29/18 08:00 Temperature 98.3 F Pulse Rate 65 Respiratory Rate 16 Blood Pressure 124/72 Pulse Oximetry 99 Oxygen Delivery Method Room Air Narrative Exam Narrative: Patient is awake alert no apparent distress Respiratory clear to auscultation with good air flow Cardiovascular regular rate rhythm no murmur noted GI is benign soft nontender Neurologic no focal neurologic changes Objective Labs Result Diagrams: 06/29/18 01:08 06/29/18 01:08 Labs: Laboratory Results - last 24 hr 06/29/18 06/29/18 06/29/18 01:08 01:08 01:08 WBC 5.6 RBC 4.24 L Hgb 13.9 Hct 39.9 L MCV 94.1 MCH 32.6 MCHC 34.7 RDW 13.6 Plt Count 213 Neut % (Auto) 47.0 L Lymph % (Auto) 41.5 H [place] % (Auto) 9.8 Eos % (Auto) 1.0 L Baso % (Auto) 0.7 Neut # (Auto) 2600 L PT 11.5 INR 1.1 APTT 31 Sodium 140 Potassium 4.1 Chloride 99 Carbon Dioxide 27 BUN 17 Creatinine 1.00 Estimated GFR > 60.0 BUN/Creatinine Ratio 17.0 Glucose 171 H Calcium 9.6 Total Bilirubin 0.5 AST 22 ALT 24 Alkaline Phosphatase 63 Total Creatine Kinase 47 L CK-MB (CK-2) TNP CK-MB (CK-2) Rel Index TNP Troponin I < 0.012 B-Natriuretic Peptide 32.5 Total Protein 7.1 Albumin 4.4 Globulin 2.7 Albumin/Globulin Ratio 1.6 Lipase 240 Urine Color Urine Appearance Urine pH Ur Specific Royal Urine Protein Urine Glucose (UA) Urine Ketones Urine Occult Blood Urine Nitrate Urine Bilirubin Urine Urobilinogen Ur Leukocyte Esterase Urine RBC Urine WBC Amorphous Sediment Urine Bacteria Ur Culture Indicated? Micro UA Comment 06/29/18 06/29/18 06/29/18 04:20 05:35 06:53 WBC RBC Hgb Hct MCV MCH MCHC RDW Plt Count Neut % (Auto) Lymph % (Auto) [place] % (Auto) Eos % (Auto) Baso % (Auto) Neut # (Auto) PT INR APTT Sodium Potassium Chloride Carbon Dioxide BUN Creatinine Estimated GFR BUN/Creatinine Ratio Glucose Calcium Total Bilirubin AST ALT Alkaline Phosphatase Total Creatine Kinase CK-MB (CK-2) CK-MB (CK-2) Rel Index Troponin I 0.024 0.017 B-Natriuretic Peptide Total Protein Albumin Globulin Albumin/Globulin Ratio Lipase Urine Color Yellow Urine Appearance Clear Urine pH 5.5 Ur Specific Royal 1.015 Urine Protein Negative Urine Glucose (UA) Negative Urine Ketones Negative Urine Occult Blood Negative Urine Nitrate Negative Urine Bilirubin Negative Urine Urobilinogen 0.2 Ur Leukocyte Esterase Negative Urine RBC 0-1/hpf Urine WBC 0-1/hpf Amorphous Sediment 2+ Urine Bacteria None seen Ur Culture Indicated? Cult not indicated Micro UA Comment Not Reportable Discharge Plan Discharge Plan Patient Disposition: Home Discharge Med Rec/Prescriptions Prescriptions: New nitroglycerin 0.4 mg tablet, sublingual 0.4 mg SL Q5-15M PRN (Reason: chest pain) Qty: 30 RF: 2 pantoprazole [Protonix] [address] for susp in packet 40 mg PO DAILY Qty: 30 RF: 3 Continue multivitamin [Multiple Vitamins] 1 EACH tablet 1 tab PO QDAY Qty: 0 RF: 0 escitalopram oxalate [Lexapro] 10 MG tablet 10 mg PO PRN PRN (Reason: Anxiety) Qty: 0 RF: 0 levothyroxine 25 MCG tablet 75 mcg PO QAM Qty: 0 RF: 0 tamsulosin [Flomax] 0.4 MG capsule,extended release 24hr 0.4 mg PO BEDTIME Qty: 0 RF: 0 aspirin 81 mg Tablet,Delayed Release (Dr/Ec) 81 mg PO DAILY RF: 0 metformin 500 mg Tablet 1,000 mg PO BIDWM RF: 0 metoprolol tartrate 50 mg Tablet 25 mg PO BEDTIME RF: 0 acetaminophen [Tylenol Arthritis Pain] 650 mg Tablet Extended Release 650 mg PO Q8H PRN (Reason: pain) RF: 0 pravastatin 10 mg Tablet 5 mg PO BEDTIME RF: 0 insulin glargine [Lantus Solostar U-100 Insulin] 100 unit/mL (3 mL) Insulin Pen 20 unit SUB-Q BEDTIME RF: 0 duloxetine [Cymbalta] 30 MG capsule,delayed release(DR/EC) 30 mg PO BEDTIME RF: 0 Follow up/Referrals: Jose De Jesus Smith MD [Primary Care Provider] - (appt:07/06 @ 11:30 w/dr smith [phone] ) Visit Report/Discharge Packet Instructions: DI for Chest Pain Visit Report Forms: Stroke Signs & Symptoms Discharge Data Primary Care Provider: Jose De Jesus Smith Attending Provider: Ramana Hinojosa Admit Date/Time: 06/29/18 02:33 Quality VTE Deep Vein Thrombosis/Pulmonary Embolism Present on Admission: No
--- NOTE | 2018-06-29 12:33 | CM.DANOTE ---
Discharge Planning/Care Management DCP/assessment: case received, EMR reviewed and met with pt at 0800. Introduced self and role. Pt is a 83 year old male who admitted early this morning to care of hospitalist team. PCP: Pt confirms this is Dr. Smith. Hospitalist and RN coordinator alerted to this in Team Rounds Payer: Medicare and commercial insurance. Dr. Hinojosa has now seen pt, consulted with Dr. Smith and the communication manager and pt has been deemed stable for home and outpt follow with Dr. Smith. CM Discharge Assessment Start: 06/29/18 12:31 Freq: Status: Active Protocol: Document 06/29/18 12:32 ITV (Rec: 06/29/18 12:33 ITV [id number]) Discharge Planning Assessment Advance Directives? Yes Advance Directives on File No History Provided By Patient Significant Other Prior Living Arrangements House Household Members spouse Transportation Arrangement Spouse Whiteboard Updated in Patient Room with Yes name and ext. # of Journal Box Inspector Review Status In Process Next Review Type Continued Stay Review
== END 2018-06-29 13:16 | disposition home or self-care (01) ==
LOC: ED 01:04 → AC 02:34
PROVIDERS: Admitting Provider Internal Medicine; Emergency Provider Emergency Medicine; PCP Family Medicine; Visit Provider Internal Medicine
DX: R07.9 Chest pain, unspecified (principal); Z95.0 Presence of cardiac pacemaker; I25.10 Atherosclerotic heart disease of native coronary artery without angina pectoris; F41.9 Anxiety disorder, unspecified; E78.5 Hyperlipidemia, unspecified; E11.9 Type 2 diabetes mellitus without complications; Z79.4 Long term (current) use of insulin; I45.2 Bifascicular block
CPT/HCPCS: 36415; 36591; 71045; 80053; 81001; 82550; 82962; 83690; 83880; 84484; 85025; 85610; 85730; 93005; 93010; 93041; 96360; 96361; 99284; G0378

== ENCOUNTER → 2018-07-10 09:29 | Outpatient (CLI) | payer MEDICARE, OTHER, SELFPAY ==
[2018-06-29 03:40] VITALS: BMI 27.6
--- NOTE | 2018-07-10 | DI.ECHO.S_ITS ---
[facility]---------+ [facility] +---------+ : : [address] : : : : [id number] : : : : Phone: [phone]---------+ Echocardiogram Report + + :Name: KENNETH PEREZ Study Date: 07/10/2018 Height: 69 in : :[facility] Weight: 187 lb : : Gender: Male BSA: 2.0 m2 : :: 1935 Age: 83 yrs BP: 116/60 mmHg: :Reason For Study: Chest pain : :Ordering Physician: : :Jose De Jesus Smith Performed By: Nena Molina : :Referring: Joss Arteaga : + + Interpretation Summary The left ventricle is normal in size. Left ventricular systolic function is normal without focal wall motion abnormalities. The ejection fraction is estimated to be 55-60%. Diastolic parameters suggest a relaxation abnormality of the left ventricle, consistent with probable normal filling pressures. This is unchanged compared to the previous study. The right ventricle grossly appears normal in size with probable normal systolic function. There is a pacemaker lead in the right ventricle. The right ventricular systolic pressure is estimated to be at least 30 mmHg based on an estimated right atrial pressure of 3 mm Hg. The left atrial size is normal. Right atrial size is normal. There is mild mitral regurgitation. There is mild aortic regurgitation. There has been no significant change since the previous study. There is no other significant valvular heart disease. The aortic root is mildly dilated. The aortic arch is mildly enlarged. The ascending aorta is mildly enlarged. Procedure: A two-dimensional transthoracic echocardiogram with color flow and Doppler was performed. The study quality was technically adequate. Comparison is made with the echocardiogram of 12-09-13. The heart rate ranged between 59-68 bpm during the study. Left Ventricle: The left ventricle is normal in size. Left ventricular wall thickness is mildly increased. Left ventricular systolic function is normal without focal wall motion abnormalities. The ejection fraction is estimated to be 55-60%. Diastolic parameters suggest a relaxation abnormality of the left ventricle, consistent with probable normal filling pressures. This is unchanged compared to the previous study. Right Ventricle: The right ventricle grossly appears normal in size with probable normal systolic function. There is a pacemaker lead in the right ventricle. Atria: The left atrial size is normal. Right atrial size is normal. The interatrial septum is intact with no evidence for an atrial septal defect. Mitral Valve: The mitral valve leaflets appear mildly thickened, but open well. There is mild mitral regurgitation. Aortic Valve: The aortic valve opens well. There is mild aortic regurgitation. There has been no significant change since the previous study. Tricuspid Valve: The tricuspid valve is normal in structure and function. There is trace tricuspid regurgitation. The right ventricular systolic pressure is estimated to be at least 30 mmHg based on an estimated right atrial pressure of 3 mm Hg. Pulmonic Valve: The pulmonic valve is not well seen, but is grossly normal. There is mild pulmonic regurgitation. There is no other significant valvular heart disease. Great Vessels: The aortic root is mildly dilated. The ascending aorta is mildly enlarged. The aortic arch is mildly enlarged. The IVC is of normal diameter and collapses greater than 50% with a sniff. This suggests a low right atrial pressure of 3 mm Hg. Pericardium/ Pleura There is no pericardial effusion. There is no pleural effusion. MMode/2D Measurements & Calculations LVIDd: 4.9 cm Ao root diam: 4.2 cm LVIDs: 3.4 cm Aortic Jxn: 3.4 cm FS: 30.0 % asc Aorta Diam: 3.9 cm EPSS: 1.1 cm Ao Arch Diam (Prox Trans): 3.4 cm IVSd: 1.2 cm LVPWd: 0.82 cm LV ortega. diameter/BSA (cm/m^2): 2.4 LV sys. diameter/BSA (cm/m^2): 1.7 LA dimension: 3.8 cm RA long axis: 5.5 cm LA A2 area: 21.1 cm2 RA area: 17.5 cm2 LA A4 area: 17.6 cm2 RA vol: 47.5 ml LA length (vol): 5.5 cm RA : 23.7 ml/m2 LA vol: 57.4 ml IVC diam: 1.0 cm LA vol index: 28.6 ml/m2 RVDd major: 4.9 cm RVD1 (basal): 3.1 cm RVD2 (mid): 3.1 cm Doppler Measurements & Calculations Ao V2 max: 146.7 cm/sec AI P1/2t: 646.1 msec Ao V2 mean: 96.4 cm/sec AI dec slope: 198.1 cm/sec2 Ao max P.6 mmHg Ao mean P.4 mmHg Ao V2 VTI: 29.9 cm MV E max santiago: 57.9 cm/sec TR max santiago: 261.0 cm/sec MV A max santiago: 91.1 cm/sec TR max P.3 mmHg MV E/A: 0.64 PA V2 max: 77.4 cm/sec Med Peak E' Santiago: 4.9 cm/sec PA V2 mean: 51.0 cm/sec E/E' med: 11.7 PA mean P.2 mmHg Lat Peak E' Santiago: 6.6 cm/sec PA Accel Time: 0.13 sec E/E' lat: 8.7 E/e' average: 10.2 MV dec time: 0.31 sec MV P1/2t: 87.9 msec MV P1/2t max santiago: 57.6 cm/sec MVA(P1/2t): 2.5 cm2 Reading Physician:CRAIG
== END ==
PROVIDERS: PCP Family Medicine; Visit Provider Family Medicine
DX: I08.0 Rheumatic disorders of both mitral and aortic valves (principal); R07.89 Other chest pain; Z95.0 Presence of cardiac pacemaker
CPT/HCPCS: 93306

== ENCOUNTER → 2018-08-23 12:31 | Outpatient (CLI) | payer MEDICARE, OTHER, SELFPAY ==
[2018-06-29 03:40] VITALS: BMI 27.6
[2018-08-23 15:09] LABS: Alanine Aminotransferase 33 IU/L (21-72); Albumin 4.4 g/dL (3.5-5.0); Albumin Globulin Ratio 1.8 (1.0-2.8); Alkaline Phosphatase 62 U/L (38-126); Aspartate Aminotransferase 22 IU/L (17-59); Bilirubin Total 0.7 mg/dL (0.2-1.3); Blood Urea Nitrogen 18 mg/dL (9-20); Calcium 9.8 mg/dL (8.4-10.2); Carbon Dioxide 28 mmol/L (22-32); Chloride 99 mmol/L (98-107); Estimated Glomerular Filt Rate > 60.0 mL/min (>60); Globulin 2.5 g/dL (1.7-4.1); Glucose 94 mg/dL (80-110); HEMOLYSIS < 15 (0-50); Potassium 4.6 mmol/L (3.4-5.1); Sodium 141 mmol/L (137-145); Total Protein 6.9 g/dL (6.3-8.2)
== END ==
PROVIDERS: PCP Family Medicine; Visit Provider Family Medicine
DX: G62.9 Polyneuropathy, unspecified (principal)
CPT/HCPCS: 36415; 80053

== ENCOUNTER → 2018-08-24 10:58 | Outpatient (CLI) | payer MEDICARE, OTHER, SELFPAY ==
[2018-06-29 03:40] VITALS: BMI 27.6
--- NOTE | 2018-08-24 | DI.CT.S_ITS ---
PROCEDURE: CT ANGIO HEAD INDICATIONS: NEUROPATHTY TECHNIQUE: Precontrast 4.5 mm thick angled axial sections acquired from the foramen magnum to the vertex. After the administration of intravenous contrast, 1 mm thick sections acquired through the [place]. Postcontrast 4.5 mm thick sections then re-acquired from the foramen magnum to the vertex. 10 mm thick [id number]-rptkziervl (MIP) reformats were acquired of the central intracranial vasculature. For radiation dose reduction, the following was used: automated exposure control, adjustment of mA and/or kV according to patient size. COMPARISON: Head CT 07/04/17, head CT 05/10/17, head CT 11/23/09, brain MRI stroke protocol 04/30/08 FINDINGS: Image quality: Excellent. Anterior circulation: Within the distal right cavernous internal carotid artery, there is approximately 50% narrowing seen at this site. The intracranial internal carotid arteries are otherwise normal in size and flow. The flow within the paired anterior cerebral arteries is normal and symmetric. The flow within the middle cerebral arteries is normal and symmetric. The anterior communicating artery is seen. No aneurysms are seen. Posterior circulation: Visualized portions of the vertebral arteries demonstrate normal caliber, and join to form a normal appearing basilar artery. There is a prominent right posterior communicating artery seen, with an accompanying diminutive right P1 segment. 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 Flow within the posterior cerebral arteries is normal and symmetric. No aneurysms are seen. CSF spaces: Ventricles are normal in size and shape. Basal cisterns are patent. No extra-axial fluid collections. Brain: No midline shift. No intracranial bleeds or masses. Luciano-white matter interface appears intact. Skull and face: Calvarium and facial bones appear intact, without suspicious lesions. Sinuses: Visualized sinuses and mastoids are clear. IMPRESSION: Approximately 50% narrowing seen involving the distal right cavernous internal carotid artery. 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 Dictated by: Good Peña M.D. on 08/24/2018 at 11:06 Approved by: Good Peña M.D. on 08/24/2018 at 11:09
== END ==
PROVIDERS: PCP Family Medicine; Visit Provider Family Medicine
DX: G62.9 Polyneuropathy, unspecified (principal); R53.1 Weakness; I65.21 Occlusion and stenosis of right carotid artery
CPT/HCPCS: 70496; Q9967

== ENCOUNTER → 2018-08-27 09:42 | Outpatient (CLI) | payer MEDICARE, OTHER, SELFPAY ==
[2018-06-29 03:40] VITALS: BMI 27.6
[2018-08-27 11:00] LABS: Alanine Aminotransferase 40 IU/L (21-72); Albumin 4.3 g/dL (3.5-5.0); Albumin Globulin Ratio 1.7 (1.0-2.8); Alkaline Phosphatase 66 U/L (38-126); Aspartate Aminotransferase 29 IU/L (17-59); BUN Creatinine Ratio 16.7 (6-22); Bilirubin Total 0.7 mg/dL (0.2-1.3); Blood Urea Nitrogen 15 mg/dL (9-20); Calcium 9.7 mg/dL (8.4-10.2); Carbon Dioxide 28 mmol/L (22-32); Chloride 99 mmol/L (98-107); Estimated Glomerular Filt Rate > 60.0 mL/min (>60); Globulin 2.5 g/dL (1.7-4.1); Glucose 159 mg/dL (80-110); HEMOLYSIS < 15 (0-50); Potassium 4.8 mmol/L (3.4-5.1); Sodium 140 mmol/L (137-145); Total Protein 6.8 g/dL (6.3-8.2)
== END ==
PROVIDERS: PCP Family Medicine; Visit Provider Family Medicine
DX: G62.9 Polyneuropathy, unspecified (principal)
CPT/HCPCS: 36415; 80053

== ENCOUNTER 2018-08-27 15:00 | Emergency (ER) | payer MEDICARE, OTHER, SELFPAY ==
[2018-06-29 03:40] VITALS: BMI 27.6
[2018-08-27 15:07] VITALS: BP 146/72; PULSE 69; RESP 16; TEMP 36.1; O2SAT 99
--- NOTE | 2018-08-27 15:20 | PC.NURSE ---
Pt has HX of back problems. Pt sees Dr. Lu at [facility] and is scheduled to have a cortisone shot in the same area on 09/04/19. Pt states he cannot stand the pain that long and decided to come in. Pt denies injury or deformity to area. States 10/10 pain causes difficulty moving and walking. Denies problems with bowel and bladder.
--- NOTE | 2018-08-27 15:42 | ED_ITS ---
HPI - Back Pain/Injury <MOLLY Linn - Last Filed: 08/27/18 21:28> General Chief Complaint: Back Pain/Injury Stated Complaint: BACK PAIN Time Seen by Provider: 08/27/18 15:09 Source: patient Mode of arrival: ambulatory Limitations: no limitations History of Present Illness HPI Narrative: 83-year-old male with history of chronic back pain and also diabetes that is a nonsmoker here for complaint of pain into his right lumbar area over the past couple of days. He denies any trauma to the area. He denies doing anything strenuous. He states that he woke up with the pain. He denies any loss of bladder or bowel control. He is ambulatory. He is currently awaiting to have a steroid shot to his lumbar spine area from Orthopedics next week. He denies any other concerns or complaints at this time. Denies any urinary symptoms. Related Data Home Medications Medication Instructions Recorded Confirmed escitalopram oxalate [Lexapro] 10 mg PO PRN PRN #0 05/10/17 08/27/18 multivitamin [Multiple Vitamins] 1 tab PO DAILY #0 05/10/17 08/27/18 tamsulosin [Flomax] 0.4 mg PO BEDTIME #0 09/07/17 08/27/18 aspirin 81 mg PO DAILY 03/27/18 08/27/18 metoprolol tartrate 25 mg PO BEDTIME 03/27/18 08/27/18 acetaminophen [Tylenol Arthritis 650 mg PO Q8H PRN 03/28/18 08/27/18 Pain] duloxetine [Cymbalta] 30 mg PO BEDTIME 03/28/18 08/27/18 insulin glargine [Lantus Solostar 20 unit SUB-Q BEDTIME 03/28/18 08/27/18 U-100 Insulin] pravastatin 5 mg PO BEDTIME 03/28/18 08/27/18 levothyroxine 75 mcg PO DAILY 08/27/18 08/27/18 metformin 1,000 mg PO BID 08/27/18 08/27/18 triamcinolone acetonide 1 applic TOPICAL DIRECTED 08/27/18 08/27/18 Previous Rx's Medication Instructions Recorded nitroglycerin 0.4 mg SL Q5-15M PRN #30 tab 06/29/18 pantoprazole [Protonix] 40 mg PO DAILY #30 each 06/29/18 cyclobenzaprine 10 mg PO TID PRN #9 tab 08/27/18 prednisone 20 mg PO DAILY #3 tab 08/27/18 Allergies Allergy/AdvReac Type Severity Reaction Status Date / Time Mcobifz-Flo-Ujt Reductase Allergy Intermediate MUSCLE PAIN Verified 08/27/18 15: 10 Inhibitor [[id number] REDUCTASE INHIBITOR] piroxicam [PIROXICAM] Allergy Mild NAUSEA, Verified 08/27/18 15:10 VOMITING dabigatran etexilate AdvReac Hematuria Verified 08/27/18 15:10 Review of Systems <MOLLY Linn - Last Filed: 08/27/18 21:28> Eyes Denies change in vision, Denies eye discharge, Denies irritation and Denies loss of vision ENT Ears, Nose, Mouth, and Throat: Denies change in voice, Denies neck pain and Denies sore throat Cardiovascular Denies chest pain, Denies irregular heart rhythm, Denies lightheadedness, Denies palpitations, Denies dyspnea, Denies dyspnea on exertion and Denies orthopnea Respiratory Denies cough, Denies dyspnea, Denies dyspnea on exertion and Denies wheezing Gastrointestinal Gastrointestinal: Denies abdominal pain, Denies change in bowel habits, Denies diarrhea, Denies nausea and Denies vomiting Musculoskeletal Denies neck pain Comments: Right lumbar paraspinal pain Integumentary/Breasts Denies pruritus, Denies erythema, Denies rash and Denies wounds Neurologic Denies confusion and Denies loss of vision Psychiatric Denies anxiety, Denies confusion, Denies depression, Denies homicidal ideation and Denies suicidal ideation Endocrine Denies palpitations Hematologic/Lymphatic Denies easy bruising Allergic/Immunologic Denies wheezing Exam <MOLLY Linn - Last Filed: 08/27/18 21:28> Initial Vital Signs Initial Vital Signs: Vital Signs Temperature 97 F L 08/27/18 15:07 Pulse Rate 69 08/27/18 15:07 Respiratory Rate 16 08/27/18 15:07 Blood Pressure 146/72 H 08/27/18 15:07 Pulse Oximetry 99 08/27/18 15:07 Const General: cooperative and well developed Nutritional Appearance: well nourished Orientation: alert, awake, oriented x3 and not confused HENWA Mouth: oral mucosae normal and moist mucous membranes Eyes General: appearance normal, both eyes and all related structures Eyelids: eyelids normal Conjunctivae: conjunctivae normal Sclera: sclerae normal Pupils: PERRL EOM: EOM intact bilaterally Resp Effort & Inspection: normal respiratory effort, able to speak in complete sentences, no respiratory distress and no use of accessory muscles Auscultation: clear to auscultation bilaterally, no rales, no rhonchi and no wheezes Cardio Rate: regular rate Rhythm: regular rhythm Heart Sounds: no click, no gallops, no murmurs and no rubs GI Inspection: non-distended Palpation: soft, no hepatosplenomegaly, No guarding, No pulsatile mass and No tender Auscultation: normal bowel sounds Back/Spine/Pelvis Other: Tenderness to the lumbar right paraspinals. Muscle spasm to the a right lumbar paraspinals. No midline tenderness. Tenderness radiates into the right buttocks area. Distal sensation is intact. Distal pulses are intact. Distal range of motion is intact. Skin General: no rashes or lesions noted, No jaundice and No petechiae Neuro General: alert, oriented x3, gait normal and no focal motor deficits Speech: speech normal <Mamadou Willis DO - Last Filed: 08/31/18 20:46> Initial Vital Signs Initial Vital Signs: Vital Signs Temperature 97 F L 08/27/18 15:07 Pulse Rate 69 08/27/18 15:07 Respiratory Rate 16 08/27/18 15:07 Blood Pressure 146/72 H 08/27/18 15:07 Pulse Oximetry 99 08/27/18 15:07 Course <MOLLY Linn - Last Filed: 08/27/18 21:28> Vital Signs - 8 hr 08/27/18 15:07 Temperature 97 F L Pulse Rate 69 Respiratory Rate 16 Blood Pressure 146/72 H Pulse Oximetry 99 <Mamadou Willis DO - Last Filed: 08/31/18 20:46> Vital Signs - 8 hr 08/27/18 15:07 Temperature 97 F L Pulse Rate 69 Respiratory Rate 16 Blood Pressure 146/72 H Pulse Oximetry 99 MDM - Back Pain/Injury <MOLLY Linn - Last Filed: 08/27/18 21:28> [facility] Narrative Medical decision making narrative: Signs and symptoms presents as acute on chronic right lumbar pain. Due to muscle spasm will treat with cyclobenzaprine. [id number] Tylenol as needed for any discomfort. Patient states that he has had a prednisone in the past tolerated well with no significant increase in his blood sugars. Will give him a 20 mg of prednisone for 3 days to see if it helps his symptoms. Follow up with Orthopedics as scheduled. Follow up with primary care provider. Return emergency room for any worsening symptoms. Discharge Plan Departure Patient Disposition: Home Clinical Impression: Low back pain Discharge Date/Time: 08/27/18 16:03 Interventions: ED Discharge Assessment Last Done: 08/27/18 16:01 Instructions: DI for Low Back Pain Activity Restrictions/Additional Instructions: Signs and symptoms presents as strain into the muscles of the lumbar spine area with sciatica. Year prescribed a muscle relaxer called cyclobenzaprine use as directed. No driving while on the muscle relaxer. Follow up with Orthopedics as scheduled next week for re-evaluation and treatment. Short course of prednisone is given for anti-inflammatory effects. Use [id number] Tylenol as needed for any discomfort. For any worsening symptoms return to the emergency room. Prescriptions: New cyclobenzaprine 10 mg tablet 10 mg PO TID PRN (Reason: muscle spasm) Qty: 9 RF: 0 prednisone 20 mg tablet 20 mg PO DAILY Qty: 3 RF: 0 No Action multivitamin [Multiple Vitamins] 1 EACH tablet 1 tab PO DAILY Qty: 0 RF: 0 escitalopram oxalate [Lexapro] 10 MG tablet 10 mg PO PRN PRN (Reason: Anxiety) Qty: 0 RF: 0 tamsulosin [Flomax] 0.4 MG capsule,extended release 24hr 0.4 mg PO BEDTIME Qty: 0 RF: 0 nitroglycerin 0.4 mg tablet, sublingual 0.4 mg SL Q5-15M PRN (Reason: chest pain) Qty: 30 RF: 2 pantoprazole [Protonix] [address] for susp in packet 40 mg PO DAILY Qty: 30 RF: 3 aspirin 81 mg Tablet,Delayed Release (Dr/Ec) 81 mg PO DAILY RF: 0 metoprolol tartrate 50 mg Tablet 25 mg PO BEDTIME RF: 0 acetaminophen [Tylenol Arthritis Pain] 650 mg Tablet Extended Release 650 mg PO Q8H PRN (Reason: pain) RF: 0 pravastatin 10 mg Tablet 5 mg PO BEDTIME RF: 0 insulin glargine [Lantus Solostar U-100 Insulin] 100 unit/mL (3 mL) Insulin Pen 20 unit SUB-Q BEDTIME RF: 0 duloxetine [Cymbalta] 30 MG capsule,delayed release(DR/EC) 30 mg PO BEDTIME RF: 0 triamcinolone acetonide 0.1 % cream 1 applic Topical DIRECTED RF: 0 levothyroxine 75 mcg tablet 75 mcg PO DAILY RF: 0 metformin 1,000 mg tablet 1,000 mg PO BID RF: 0 Referrals: Jose De Jesus Smith MD [Primary Care Provider] - <Mamadou Willis DO - Last Filed: 08/31/18 20:46> Cosign ED Attending Cosignature Attestation: I was immediately available in the department for consultation. Documentation has been reviewed. I agree with assessment and plan.
== END 2018-08-27 16:03 | disposition home or self-care (01) ==
PROVIDERS: Emergency Provider Nurse Practitioner Family; PCP Family Medicine
DX: M54.5 Low back pain (principal)
CPT/HCPCS: 99282

== ENCOUNTER 2018-10-25 10:09 | Emergency (ER) | payer MEDICARE, OTHER, SELFPAY ==
[2018-06-29 03:40] VITALS: BMI 27.6
[2018-10-25] VITALS (19 sets, daily range): BP systolic 149–179; BP diastolic 76–97; PULSE 61–89; RESP 17–99; TEMP 36.4–36.8; O2SAT 20–100
--- NOTE | 2018-10-25 10:15 | ED.NEUROSD ---
HPI - Neuro Symptoms/Deficit General Chief Complaint: Neuro Symptoms/Deficit Stated Complaint: TI AGAIN Time Seen by Provider: 10/25/18 10:15 Source: patient and family Mode of arrival: ambulatory Limitations: no limitations History of Present Illness HPI Narrative: Patient is an 83-year-old male here for evaluation of confusion and problems speaking in problems thinking of words. He stated that it occurred approximately 1 hr prior to arrival here in the emergency department. He has had TIAs in the past. He feels like the symptoms have not improved all that much. He is not on anticoagulation. He was talking on the phone at the time. Denies any numbness or tingling or weakness in his upper lower extremities. No headache. No trauma. Related Data Home Medications Medication Instructions Recorded Confirmed escitalopram oxalate [Lexapro] 10 mg PO QAM #0 05/10/17 10/25/18 multivitamin [Multiple Vitamins] 1 tab PO DAILY #0 05/10/17 10/25/18 tamsulosin [Flomax] 0.4 mg PO BEDTIME #0 09/07/17 10/25/18 metoprolol tartrate 25 mg PO QPM 03/27/18 10/25/18 Lantus Solostar U-100 Insulin 20 unit SUB-Q BEDTIME 03/28/18 10/25/18 acetaminophen [Tylenol Arthritis 650 mg PO Q8H PRN 03/28/18 10/25/18 Pain] duloxetine [Cymbalta] 30 mg PO BEDTIME 03/28/18 10/25/18 pravastatin 5 mg PO BEDTIME 03/28/18 10/25/18 levothyroxine 75 mcg PO DAILY 08/27/18 10/25/18 metformin 1,000 mg PO BID 08/27/18 10/25/18 triamcinolone acetonide 1 applic TOPICAL DIRECTED 08/27/18 10/25/18 aspirin 325 mg PO DAILY 10/25/18 10/25/18 Previous Rx's Medication Instructions Recorded nitroglycerin 0.4 mg SL Q5-15M PRN #30 tab 06/29/18 Allergies Allergy/AdvReac Type Severity Reaction Status Date / Time Scxygtp-Wqg-Tsa Reductase Allergy Intermediate MUSCLE PAIN Verified 08/27/18 15:10 Inhibitor [[id number] REDUCTASE INHIBITOR] piroxicam [PIROXICAM] Allergy Mild NAUSEA, Verified 08/27/18 15:10 VOMITING dabigatran etexilate AdvReac Hematuria Verified 08/27/18 15:10 Review of Systems Constitutional Denies fever(s), Denies headache(s) and Denies weakness Eyes Denies blurry vision and Denies change in vision ENT Ears, Nose, Mouth, and Throat: Denies vertigo, Denies headache(s), Denies disequilibrium, Denies tinnitus and Denies sinus pain Comments: Trouble finding words and speaking and slurring his words Cardiovascular Denies chest pain, Denies syncope, Denies palpitations and Denies dyspnea Respiratory Denies cough and Denies dyspnea Gastrointestinal Gastrointestinal: Denies abdominal pain, Denies nausea and Denies vomiting Genitourinary Denies dysuria Musculoskeletal Denies myalgias, Denies arthralgias, Denies numbness and Denies tingling Integumentary/Breasts Denies lesions and Denies rash Neurologic Denies abnormal movements, Reports abnormal speech, Reports confusion, Denies vertigo, Denies syncope, Denies headache(s), Denies lack of coordination, Denies memory loss, Denies numbness, Denies other visual disturbances, Denies convulsions, Denies seizure-like activity, Denies tingling, Denies paresthesias, Denies tremor(s), Denies disequilibrium and Denies weakness Psychiatric Reports confusion and Denies memory loss Endocrine Denies palpitations Hematologic/Lymphatic Comments: Not on anticoagulation [facility] Social History household members: spouse Smoking Status: Never smoker alcohol intake: current substance use type: does not use Exam Initial Vital Signs Initial Vital Signs: Vital Signs Temperature 98.0 F 10/25/18 10:10 Pulse Rate 61 10/25/18 10:10 Respiratory Rate 22 10/25/18 10:10 Blood Pressure 151/79 H 10/25/18 10:10 Pulse Oximetry 98 10/25/18 10:10 Const General: cooperative, healthy appearing, comfortable, well developed, well groomed and No acute distress Orientation: alert, awake and oriented x3 HENMT Head: normal to inspection, normocephalic and atraumatic Ears: hearing grossly normal bilaterally Nose: external nose normal Eyes Pupils: PERRL EOM: EOM intact bilaterally Chest Chest: normal inspection of the chest Resp Effort & Inspection: normal respiratory effort Auscultation: clear to auscultation bilaterally Cardio Rate: regular rate Rhythm: regular rhythm Pulses: radial pulses present GI Inspection: non-distended Palpation: soft, No firm and No tender General: No CVA tenderness Skin Lesions: no lesions Rashes: no rashes Neuro Other: See NIH scale. Extrem General: normal to inspection and capillary refill normal Psych Appearance: grossly normal and well kempt Scores NIH Stroke Scale Level of Conciousness: Alert, keenly responsive Ask month/age: Answers one question correctly, intubated follow commands Open/close eyes, close hand: Performs both tasks correctly Best gaze horizontal: Normal Visual hall: No visual loss Facial palsy: Minor paralysis, flattened nasolabial fold, asymmetry on smiling Left arm drift: No drift for full 10 sec Right arm drift: No drift for full 10 sec Left leg drift: Drifts down, not to bed Right leg drift: Drifts down, not to bed Limb ataxia: Absent Sensory on face/arms/legs: Normal, no sensory loss Best language: No aphasia, normal Dysarthria: Mild to mod,some slurring Extinction or inattention: No abnormality Total NIH Stroke scale score: 5 Course Orders Ordered: ED Orders 10/25/18 10:18 EKG-12 Lead Stat 10/25/18 10:22 CT head/brain wo con Stat 10/25/18 10:30 Complete Blood Count AUTO DIFF Stat Comprehensive Metabolic Panel Stat Ethanol (ETOH) Stat Lipase Stat Partial Thromboplastin Time Stat Prothrombin Time INR Stat Troponin I Stat 10/25/18 10:55 Ammonia (NH3) Stat 10/25/18 12:00 CT angio head and neck Stat 10/25/18 12:37 CT head/brain wo con Stat 10/25/18 12:50 Urine Microscopic Stat Discontinued Medications Alteplase, Recombinant (Activase) 8 mg 0.09 mg/kg (8 mg) IV NOW ONE Stop: 10/25/18 11:12 Last Admin: 10/25/18 11:31 Dose: 8 mg Alteplase, Recombinant (Activase) 71 mg 0.81 mg/kg (71 mg) IV NOW ONE Stop: 10/25/18 11:12 Last Admin: 10/25/18 11:36 Dose: 71 mg Alteplase, Recombinant (Activase) 7.8 mg IV NOW ONE Stop: 10/25/18 11:16 Last Admin: 10/25/18 12:29 Dose: Not Given Alteplase, Recombinant (Activase) 70.5 mg IV NOW ONE Stop: 10/25/18 11:31 Last Admin: 10/25/18 12:29 Dose: Not Given Morphine Sulfate (Morphine) 2 mg IV NOW ONE Stop: 10/25/18 12:08 Last Admin: 10/25/18 12:27 Dose: 2 mg Vital Signs - 8 hr 10/25/18 10:10 10/25/18 11:09 10/25/18 12:36 Temperature 98.0 F Pulse Rate 61 64 71 Respiratory Rate 22 17 24 Blood Pressure 151/79 H Blood Pressure [Right Arm] 149/77 H 162/94 H Pulse Oximetry 98 100 97 MDM - Neuro Symptoms/Deficit Lab Data Attestation: I reviewed the patient's lab results. Result diagrams: 10/25/18 10:30 10/25/18 10:30 Lab Results 10/25/18 10/25/18 10/25/18 Range/Units 10:30 10:30 10:30 WBC 5.3 (4.5-11.0) X10^3/uL RBC 4.22 L (4.5-5.9) X10^6/uL Hgb 13.6 (13.5-17.5) g/dL Hct 39.8 L (41-53) % MCV 94.3 (80-100) fL MCH 32.1 (26-34) PG MCHC 34.0 (30-36) % RDW 14.2 (11.6-14.8) % Plt Count 228 (150-400) X10^3/uL Neut % (Auto) 46.7 L (50-75) % Lymph % (Auto) 40.7 H (25-40) % Long % (Auto) 11.2 (3-14) % Eos % (Auto) 0.7 L (2-4) % Baso % (Auto) 0.7 (0-2) % Neut # (Auto) 2500 (6083-9737) /uL Lymph # (Auto) 2200 (6764-8702) /uL Long # (Auto) 600 (0-900) /uL Eos # (Auto) 0 (0-450) /uL Baso # (Auto) 0 (0-100) /uL PT 11.9 (10.1-12.7) SECONDS INR 1.0 (0.9-1.3) APTT 31 (26.4-36.2) SECONDS Sodium 137 (137-145) mmol/L Potassium 4.2 (3.4-5.1) mmol/L Chloride 98 (98-107) mmol/L Carbon Dioxide 28 (22-32) mmol/L BUN 13 (9-20) mg/dL Creatinine 1.00 (0.66-1.25) mg/dL Estimated GFR > 60.0 (>60) mL/min BUN/Creatinine Ratio 13.0 (6-22) Glucose 135 H (80-110) mg/dL Calcium 9.4 (8.4-10.2) mg/dL Total Bilirubin 0.8 (0.2-1.3) mg/dL AST 30 (17-59) IU/L ALT 39 (21-72) IU/L Alkaline Phosphatase 62 (38-126) U/L Ammonia (9-30) umol/L Troponin I < 0.012 (0.01-0.034) ng/mL Total Protein 6.9 (6.3-8.2) g/dL Albumin 4.2 (3.5-5.0) g/dL Globulin 2.7 (1.7-4.1) g/dL Albumin/Globulin Ratio 1.6 (1.0-2.8) Lipase 80 (23-300) U/L Ethyl Alcohol < 10 mg/dL 10/25/18 Range/Units 10:55 WBC (4.5-11.0) X10^3/uL RBC (4.5-5.9) X10^6/uL Hgb (13.5-17.5) g/dL Hct (41-53) % MCV (80-100) fL MCH (26-34) PG MCHC (30-36) % RDW (11.6-14.8) % Plt Count (150-400) X10^3/uL Neut % (Auto) (50-75) % Lymph % (Auto) (25-40) % Long % (Auto) (3-14) % Eos % (Auto) (2-4) % Baso % (Auto) (0-2) % Neut # (Auto) (1579-0867) /uL Lymph # (Auto) (8834-9872) /uL Long # (Auto) (0-900) /uL Eos # (Auto) (0-450) /uL Baso # (Auto) (0-100) /uL PT (10.1-12.7) SECONDS INR (0.9-1.3) APTT (26.4-36.2) SECONDS Sodium (137-145) mmol/L Potassium (3.4-5.1) mmol/L Chloride (98-107) mmol/L Carbon Dioxide (22-32) mmol/L BUN (9-20) mg/dL Creatinine (0.66-1.25) mg/dL Estimated GFR (>60) mL/min BUN/Creatinine Ratio (6-22) Glucose (80-110) mg/dL Calcium (8.4-10.2) mg/dL Total Bilirubin (0.2-1.3) mg/dL AST (17-59) IU/L ALT (21-72) IU/L Alkaline Phosphatase (38-126) U/L Ammonia < 9.0 L (9-30) umol/L Troponin I (0.01-0.034) ng/mL Total Protein (6.3-8.2) g/dL Albumin (3.5-5.0) g/dL Globulin (1.7-4.1) g/dL Albumin/Globulin Ratio (1.0-2.8) Lipase (23-300) U/L Ethyl Alcohol mg/dL Point of Care Testing Glucose POC 144 Urine Dip Bedside Urine Glucose Negative Bedside Urine Bilirubin - Negative Bedside Urine Ketone - Negative Urine Specific [place] 1.010 Bedside Urine Occult Blood ++ Bedside Urine pH 8.0 Bedside Urine Protein - Negative Bedside Urine Urobilinogen - Negative Bedside Urine Nitrite - Negative Bedside Urine Leukocytes - Negative Esterase Imaging Data CT scan - head: Radiologist's impression: PROCEDURE: CT HEAD/BRAIN WO CON INDICATIONS: right sided facial weakness TECHNIQUE: Noncontrast 4.5 mm thick angled axial sections acquired from the foramen magnum to the vertex, with coronal and sagittal reformats. For radiation dose reduction, the following was used: automated exposure control, adjustment of mA and/or kV according to patient size. COMPARISON: [facility], CT, HEAD WITHOUT CONTRAST, 05/10/2017, 15:37. FINDINGS: Image quality: Excellent. CSF spaces: Basal cisterns are patent. No extra-axial fluid collections. The ventricles are symmetric in size and shape. Brain: No intracranial bleeds or masses. There is cerebral volume loss for age, with resultant ventricular and sulcal prominence. There are periventricular and deep white matter chronic small vessel ischemic changes. Chronic right land radiata and bilateral centrum semiovale lacunar infarcts are stable. There is intracranial internal carotid artery and vertebral artery atherosclerosis. Skull and face: Calvarium and visualized facial bones appear intact, without suspicious lesions. Sinuses: Visualized sinuses and mastoids are clear. IMPRESSION: No acute intracranial disease process. Dictated by: Diane Crawford MD, PhD on 10/25/2018 at 10:30 Approved by: Diane Crawford MD, PhD on 10/25/2018 at 10:33 CTA head and neck: Radiologist's impression: PROCEDURE: CT ANGIO HEAD AND NECK INDICATIONS: dysarthria and right sided facial droop TECHNIQUE: Pre-contrast 4.5 mm thick sections acquired from the foramen magnum to the vertex. After the administration of intravenous contrast, 1 mm thick sections acquired from the aortic arch through the [place]. Post-contrast 4.5 mm thick sections then re-acquired from the foramen magnum to the vertex. 3-dimensional [id number] (MIP) and/or volume rendering reformats were acquired of the central intracranial vasculature and neck separately. COMPARISON: [facility], CT, CT HEAD/BRAIN WO CON, 10/25/2018, 10:12. FINDINGS: Image quality: Excellent. BRAIN: CSF spaces: Ventricles are normal in size and shape. Basal cisterns are patent. No extra-axial fluid collections. Brain: No midline shift. No intracranial bleeds or masses. Luciano-white matter interface appears intact. Skull and face: Calvarium and facial bones appear intact, without suspicious lesions. Orbits appear normal. Sinuses: Mild mucosal thickening noted in the floor of the right maxillary sinus. The mastoids are clear. HEAD CT ANGIOGRAPHY: Anterior circulation: Intracranial internal carotid arteries are normal in size and flow. Atherosclerotic calcification noted in the cavernous, clinoid and ophthalmic segments of the right internal carotid artery which causes minimal stenosis. The intracranial left internal carotid artery is fully patent. The flow within the paired anterior cerebral arteries is normal and symmetric. The flow within the middle cerebral arteries is normal and symmetric. The anterior communicating artery is seen. No aneurysms are seen. Posterior circulation: Visualized portions of the vertebral arteries demonstrate normal caliber. The right vertebral artery terminates in a right posterior inferior cerebellar artery. Flow within the posterior cerebral arteries is normal and symmetric. The right posterior cerebral artery has a origin. No aneurysms are seen. Dural sinuses demonstrate normal postcontrast enhancement. NECK CT ANGIOGRAPHY: Carotid system: The great vessels demonstrate bovine variant anatomy as they arise from the aortic arch. The origins of the common carotid arteries appear patent. The common carotid arteries demonstrate normal caliber and courses. Scattered atherosclerotic calcifications noted in the common carotid arteries bilaterally which do not cause of measurable stenosis. Calcified and noncalcified atherosclerotic plaque in the origins of the internal carotid arteries bilaterally. Atherosclerotic disease causes less than 50% stenosis of the origin of the right internal carotid artery. Atherosclerotic plaque causes high grade, greater than 90% stenosis of the origin of the right internal carotid artery. Posterior circulation: The origins of the vertebral arteries both appear widely patent. The more superior extracranial portions of both vertebral arteries also demonstrate normal courses and calibers. Patient is left vertebral artery dominant. The right vertebral artery terminates in a right posterior inferior cerebellar artery. Soft tissues: Left chest wall dual chamber cardiac pacer is noted. Visualized neck soft tissues demonstrate no suspicious abnormalities. Bones: No suspicious bony lesions. Spine degenerative disc disease and facet arthropathy. C5-C6 ACDF noted. Visualized cervical spine appears normally aligned. IMPRESSION: 1. No acute intracranial disease process. 2. No intracranial large vessel occlusion, hemodynamically significant stenosis, dissection or aneurysm. 3. 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 4. Less than 50% stenosis of the origin of the right internal carotid artery. Any quantitative measurements of stenosis were performed using NASCET criteria. Dictated by: Diane Crawford MD, PhD on 10/25/2018 at 12:05 Approved by: Diane Crawford MD, PhD on 10/25/2018 [address]: Radiologist's impression: [address] [address] [address] Scan Report Signed Patient: Sotero Kasper WMR#: [id number] : 5Acct:[id number] Age/Sex: 83 / MDate of Service: 10/25/18 Loc: ED Accession Number: [id number] Procedure: CT head/brain wo con Ordering Provider: Jose De Jesus Christie D.O. PROCEDURE: CT HEAD/BRAIN WO CON INDICATIONS: worse headache after TPA eval for bleed TECHNIQUE: Noncontrast 4.5 mm thick angled axial sections acquired from the foramen magnum to the vertex, with coronal and sagittal reformats. For radiation dose reduction, the following was used: automated exposure control, adjustment of mA and/or kV according to patient size. COMPARISON: None. FINDINGS: Image quality: Limited by patient motion. CSF spaces: Basal cisterns are patent. No extra-axial fluid collections. The ventricles are symmetric in size and shape. Brain: No intracranial bleeds or masses. There is cerebral volume loss for age, with resultant ventricular and sulcal prominence. There are periventricular and deep white matter chronic small vessel ischemic changes. Small, chronic left land radiata and bilateral centrum semiovale lacunar infarcts. Intravascular contrast material is noted related to recent CT angiogram of the head and neck. There is intracranial internal carotid artery and vertebral artery atherosclerosis. Skull and face: Calvarium and visualized facial bones appear intact, without suspicious lesions. Sinuses: Visualized sinuses and mastoids are clear. IMPRESSION: No acute intracranial disease process within the limitations related to motion artifact. No intracranial hemorrhage. Dictated by: Diane Crawford MD, PhD on 10/25/2018 at 12:52 Approved by: Diane Crawford MD, PhD on 10/25/2018 at 12:54 ECG Data Attestation: I personally reviewed and interpreted this ECG as follows: Prior ECG tracings: not available for review Interpretation: Sinus rhythm 1st degree AV block Ventricular rate is 60 As needed oval 238 Right bundle branch block Left anterior fascicular block Left axis deviation No ST T wave changes MDM Narrative Medical decision making narrative: Patient arrived within 3 hr of the onset of his symptoms. NIH score of 5. Predominantly dysarthria. His lower extremity weakness was equal bilateral. I have a feeling that this was effort related and not weakness related. Initial head CT was negative. Blood pressure less than 180 over 110. I discussed the case with Dr. Wray the stroke neurologist at [facility]. We did discuss his recent spinal steroid injection. We felt that this is not a absolute contraindication for administering tPA. He did not evaluate the patient through the tele stroke. I discussed the risks and benefits of tPA with the patient and his and daughter who were at bedside. We did discuss that there was a 6-7% chance that he could have a devastating adverse effects such as a head bleed. We also discussed that this medication was the best for potential reversing all of his symptoms. After this discussion the patient and his family decided to have the tPA. Was administered. Shortly afterward started having a left-sided headache and worsening word-finding issues. Head CT shows no intracranial vascular issues. Patient's headache did get slightly worse. I did stop the tPA bolus because of the worsening headache. A repeat non con head CT was obtained did not show any bleed. Will hold on the tPA bolus. Dr. Wray accepts the patient at [facility]. Will send the patient by helicopter. I feel that this is the best for him to limit to the transport time given his headache and worsening symptoms. I discussed the transfer with the family. And the patient. They both expressed understanding agreement plan. Patient is stable for transport. Discharge Plan Departure Patient Disposition: [facility] Clinical Impression: Dysarthria CVA (cerebral vascular accident) Qualifiers: CVA mechanism: unspecified Qualified Code(s): I63.9 - Cerebral infarction, unspecified Prescriptions: No Action multivitamin [Multiple Vitamins] 1 EACH tablet 1 tab PO DAILY Qty: 0 RF: 0 escitalopram oxalate [Lexapro] 10 MG tablet 10 mg PO QAM Qty: 0 RF: 0 tamsulosin [Flomax] 0.4 MG capsule,extended release 24hr 0.4 mg PO BEDTIME Qty: 0 RF: 0 nitroglycerin 0.4 mg tablet, sublingual 0.4 mg SL Q5-15M PRN (Reason: chest pain) Qty: 30 RF: 2 metoprolol tartrate 50 mg Tablet 25 mg PO QPM RF: 0 acetaminophen [Tylenol Arthritis Pain] 650 mg Tablet Extended Release 650 mg PO Q8H PRN (Reason: pain) RF: 0 pravastatin 10 mg Tablet 5 mg PO BEDTIME RF: 0 Lantus Solostar U-100 Insulin 100 unit/mL (3 mL) Insulin Pen 20 unit SUB-Q BEDTIME RF: 0 duloxetine [Cymbalta] 30 MG capsule,delayed release(DR/EC) 30 mg PO BEDTIME RF: 0 triamcinolone acetonide 0.1 % cream 1 applic Topical DIRECTED RF: 0 levothyroxine 75 mcg tablet 75 mcg PO DAILY RF: 0 metformin 1,000 mg tablet 1,000 mg PO BID RF: 0 aspirin 325 mg Tablet 325 mg PO DAILY RF: 0 Referrals: Jose De Jesus Smith MD [Primary Care Provider] -
--- NOTE | 2018-10-25 10:22 | DI.CT.S_ITS ---
PROCEDURE: CT HEAD/BRAIN WO CON INDICATIONS: right sided facial weakness TECHNIQUE: Noncontrast 4.5 mm thick angled axial sections acquired from the foramen magnum to the vertex, with coronal and sagittal reformats. For radiation dose reduction, the following was used: automated exposure control, adjustment of mA and/or kV according to patient size. COMPARISON: [facility], CT, HEAD WITHOUT CONTRAST, 05/10/2017, 15:37. FINDINGS: Image quality: Excellent. CSF spaces: Basal cisterns are patent. No extra-axial fluid collections. The ventricles are symmetric in size and shape. Brain: No intracranial bleeds or masses. There is cerebral volume loss for age, with resultant ventricular and sulcal prominence. There are periventricular and deep white matter chronic small vessel ischemic changes. Chronic right land radiata and bilateral centrum semiovale lacunar infarcts are stable. There is intracranial internal carotid artery and vertebral artery atherosclerosis. Skull and face: Calvarium and visualized facial bones appear intact, without suspicious lesions. Sinuses: Visualized sinuses and mastoids are clear. IMPRESSION: No acute intracranial disease process. Dictated by: Diane Crawford MD, PhD on 10/25/2018 at 10:30 Approved by: Diane Crawford MD, PhD on 10/25/2018 at 10:33
[2018-10-25 10:49] LABS: Prothrombin Time 11.9 SECONDS (10.1-12.7)
[2018-10-25 10:51] LABS: PTT Partial Thromboplastin Tim 31 SECONDS (26.4-36.2)
[2018-10-25 10:57] LABS: Add Manual Diff / Slide Review NO; Basophils Absolute Auto 0 /uL (0-100); Basophils Percent Auto 0.7 % (0-2); Eosinophils Absolute Auto 0 /uL (0-450); Eosinophils Percent Auto 0.7 % (2-4); Hematocrit 39.8 % (41-53); Hemoglobin 13.6 g/dL (13.5-17.5); Lymphocytes Absolute Auto 2200 /uL (1100-4500); Lymphocytes Percent Auto 40.7 % (25-40); Mean Corpuscular Hemoglobin 32.1 PG (26-34); Mean Corpuscular Volume 94.3 fL (80-100); Monocytes Absolute Auto 600 /uL (0-900); Monocytes Percent Auto 11.2 % (3-14); Neutrophils Absolute Auto 2500 /uL (1500-7000); Neutrophils Percent Auto 46.7 % (50-75); Platelet Count 228 X10^3/uL (150-400); Red Blood Cell Count 4.22 X10^6/uL (4.5-5.9); Red Cell Distribution Width 14.2 % (11.6-14.8); White Blood Cell Count 5.3 X10^3/uL (4.5-11.0)
[2018-10-25 11:04] LABS: Alanine Aminotransferase 39 IU/L (21-72); Albumin 4.2 g/dL (3.5-5.0); Albumin Globulin Ratio 1.6 (1.0-2.8); Alkaline Phosphatase 62 U/L (38-126); Aspartate Aminotransferase 30 IU/L (17-59); Bilirubin Total 0.8 mg/dL (0.2-1.3); Blood Urea Nitrogen 13 mg/dL (9-20); Calcium 9.4 mg/dL (8.4-10.2); Carbon Dioxide 28 mmol/L (22-32); Chloride 98 mmol/L (98-107); Estimated Glomerular Filt Rate > 60.0 mL/min (>60); Ethanol (ETOH) < 10 mg/dL; Globulin 2.7 g/dL (1.7-4.1); Glucose 135 mg/dL (80-110); HEMOLYSIS < 15 (0-50); Lipase 80 U/L (23-300); Potassium 4.2 mmol/L (3.4-5.1); Sodium 137 mmol/L (137-145); Total Protein 6.9 g/dL (6.3-8.2)
[2018-10-25 11:15] LABS: Ammonia (NH3) < 9.0 umol/L (9-30)
[2018-10-25] MEDS: ALTEPLASE 100 MG VIAL 8 MG IV (11:31)
[2018-10-25 11:34] LABS: Troponin I < 0.012 ng/mL (0.01-0.034)
[2018-10-25] MEDS: ALTEPLASE 100 MG VIAL 71 MG IV (11:36)
--- NOTE | 2018-10-25 12:00 | DI.CT.S_ITS ---
PROCEDURE: CT ANGIO HEAD AND NECK INDICATIONS: dysarthria and right sided facial droop TECHNIQUE: Pre-contrast 4.5 mm thick sections acquired from the foramen magnum to the vertex. After the administration of intravenous contrast, 1 mm thick sections acquired from the aortic arch through the [place]. Post-contrast 4.5 mm thick sections then re-acquired from the foramen magnum to the vertex. 3-dimensional lxnxjug-lgvzniqkj-fsiqdowlkv (MIP) and/or volume rendering reformats were acquired of the central intracranial vasculature and neck separately. COMPARISON: [facility], CT, CT HEAD/BRAIN WO CON, 10/25/2018, 10:12. FINDINGS: Image quality: Excellent. BRAIN: CSF spaces: Ventricles are normal in size and shape. Basal cisterns are patent. No extra-axial fluid collections. Brain: No midline shift. No intracranial bleeds or masses. Luciano-white matter interface appears intact. Skull and face: Calvarium and facial bones appear intact, without suspicious lesions. Orbits appear normal. Sinuses: Mild mucosal thickening noted in the floor of the right maxillary sinus. The mastoids are clear. HEAD CT ANGIOGRAPHY: Anterior circulation: Intracranial internal carotid arteries are normal in size and flow. Atherosclerotic calcification noted in the cavernous, clinoid and ophthalmic segments of the right internal carotid artery which causes minimal stenosis. The intracranial left internal carotid artery is fully patent. The flow within the paired anterior cerebral arteries is normal and symmetric. The flow within the middle cerebral arteries is normal and symmetric. The anterior communicating artery is seen. No aneurysms are seen. Posterior circulation: Visualized portions of the vertebral arteries demonstrate normal caliber. The right vertebral artery terminates in a right posterior inferior cerebellar artery. Flow within the posterior cerebral arteries is normal and symmetric. The right posterior cerebral artery has a origin. No aneurysms are seen. Dural sinuses demonstrate normal postcontrast enhancement. NECK CT ANGIOGRAPHY: Carotid system: The great vessels demonstrate bovine variant anatomy as they arise from the aortic arch. The origins of the common carotid arteries appear patent. The common carotid arteries demonstrate normal caliber and courses. Scattered atherosclerotic calcifications noted in the common carotid arteries bilaterally which do not cause of measurable stenosis. Calcified and noncalcified atherosclerotic plaque in the origins of the internal carotid arteries bilaterally. Atherosclerotic disease causes less than 50% stenosis of the origin of the right internal carotid artery. Atherosclerotic plaque causes high grade, greater than 90% stenosis of the origin of the right internal carotid artery. Posterior circulation: The origins of the vertebral arteries both appear widely patent. The more superior extracranial portions of both vertebral arteries also demonstrate normal courses and calibers. Patient is left vertebral artery dominant. The right vertebral artery terminates in a right posterior inferior cerebellar artery. Soft tissues: Left chest wall dual chamber cardiac pacer is noted. Visualized neck soft tissues demonstrate no suspicious abnormalities. Bones: No suspicious bony lesions. Spine degenerative disc disease and facet arthropathy. C5-C6 ACDF noted. Visualized cervical spine appears normally aligned. IMPRESSION: 1. No acute intracranial disease process. 2. No intracranial large vessel occlusion, hemodynamically significant stenosis, dissection or aneurysm. 3. 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 4. Less than 50% stenosis of the origin of the right internal carotid artery. Any quantitative measurements of stenosis were performed using NASCET criteria. Dictated by: Diane Crawford MD, PhD on 10/25/2018 at 12:05 Approved by: Diane Crawford MD, PhD on 10/25/2018 at 12:17
--- NOTE | 2018-10-25 12:06 | PC.NURSE ---
Patient complaining headache is worse at 8/10 and speech finding is worse with more slurred words. I immediately notified Pratik and stopped TPA per his request. Patient appears anxious and is gripping head. Pratik assessed patient and is checking CT scans at this time. Patient is A&Ox2. KNows his own name but unable to answer month or president at this time.
--- NOTE | 2018-10-25 12:21 | PC.NURSE ---
Patient's mental status continues to decline, he is unable to speak his own or his 's name at this time. Is confused and pulling at cords/lines. MD Christie aware and on phone with [facility], also radiology called to ensure that CT scans were received and are being read.
[2018-10-25] MEDS: MORPHINE 4 MG/ML INJ 2 MG IV (12:27)
--- NOTE | 2018-10-25 12:36 | PC.NURSE ---
1012 DAVID Talbert and Mari completed FAST exam and Pratik informed that patient is within window for code stroke. Last seen normal 0900.
--- NOTE | 2018-10-25 12:36 | PC.NURSE ---
1015 Code Stroke initiated.
--- NOTE | 2018-10-25 12:37 | DI.CT.S_ITS ---
PROCEDURE: CT HEAD/BRAIN WO CON INDICATIONS: worse headache after TPA eval for bleed TECHNIQUE: Noncontrast 4.5 mm thick angled axial sections acquired from the foramen magnum to the vertex, with coronal and sagittal reformats. For radiation dose reduction, the following was used: automated exposure control, adjustment of mA and/or kV according to patient size. COMPARISON: None. FINDINGS: Image quality: Limited by patient motion. CSF spaces: Basal cisterns are patent. No extra-axial fluid collections. The ventricles are symmetric in size and shape. Brain: No intracranial bleeds or masses. There is cerebral volume loss for age, with resultant ventricular and sulcal prominence. There are periventricular and deep white matter chronic small vessel ischemic changes. Small, chronic left land radiata and bilateral centrum semiovale lacunar infarcts. Intravascular contrast material is noted related to recent CT angiogram of the head and neck. There is intracranial internal carotid artery and vertebral artery atherosclerosis. Skull and face: Calvarium and visualized facial bones appear intact, without suspicious lesions. Sinuses: Visualized sinuses and mastoids are clear. IMPRESSION: No acute intracranial disease process within the limitations related to motion artifact. No intracranial hemorrhage. Dictated by: Diane Crawford MD, PhD on 10/25/2018 at 12:52 Approved by: Diane Crawford MD, PhD on 10/25/2018 at 12:54
--- NOTE | 2018-10-25 12:38 | PC.NURSE ---
on awake overnight monitor
--- NOTE | 2018-10-25 12:59 | PC.NURSE ---
with monitor tech
[2018-10-25 13:01] LABS: Bacteria Urine None Seen
[2018-10-25 13:13] LABS: Culture Indicated Urine Cult Not Indicated; RBC Urine 10-30/HPF (0-5/HPF); Squamous Epithelial Cell Urine 0-1 /HPF; WBC Urine 0-1/HPF (0-5/HPF)
--- NOTE | 2018-10-25 13:49 | PC.NURSE ---
Addendum entered by Camryn Tovar R.N. 10/25/18 13:53: 1125 Prior to TPA start, patient reports mild headache at 4/10. MD Christie aware. Patient able to communicate with me and answer questions appropriately. Some difficulty with word finding and occasionally confused. Patient will let me know if headache worsens. Original Note: 1105 Prior to TPA start, patient reports mild headache at 4/10. MD Christie aware. Patient able to communicate with me and answer questions appropriately. Some difficulty with word finding and occasionally confused. Patient will let me know if headache worsens.
--- NOTE | 2018-10-25 13:50 | PC.NURSE ---
1150 Back from CTA of head, patient reports headache is worse at 6/10 and is now having worse word finding and slurred speech, I informed MD goodman and he is assessing patient and awaiting CTA results.
--- NOTE | 2018-10-25 14:31 | PC.NURSE ---
Patient with slurred speech and aphasia- automatic failed swallow exam.
== END 2018-10-25 14:00 | disposition short-term general hospital (02) ==
LOC: ED 11:34
PROVIDERS: Emergency Provider Emergency Medicine; PCP Family Medicine
DX: I63.9 Cerebral infarction, unspecified (principal); R51 Headache
CPT/HCPCS: 36415; 36591; 70450; 70496; 70498; 80053; 80320; 81003; 81015; 82140; 82962; 83690; 84484; 85025; 85610; 85730; 93005; 96374; 96375; 96376; 99285; 99291; 99292; J2270; J2997; Q9967

== ENCOUNTER → 2018-12-14 15:04 | Outpatient (CLI) | payer MEDICARE, OTHER, SELFPAY ==
[2018-06-29 03:40] VITALS: BMI 27.6
--- NOTE | 2018-12-14 15:09 | DI.CT.S_ITS ---
PROCEDURE: CT HEAD/BRAIN WO CON INDICATIONS: ATAXIA TECHNIQUE: Noncontrast 4.5 mm thick angled axial sections acquired from the foramen magnum to the vertex, with coronal and sagittal reformats. For radiation dose reduction, the following was used: automated exposure control, adjustment of mA and/or kV according to patient size. COMPARISON: [facility], MR, STROKE PROTOCOL A, 11/29/2007, 8:24. [facility], CT, CT ANGIO HEAD AND NECK, 10/25/2018, 11:30. [facility], CT, CT ANGIO HEAD, 08/24/2018, 11:22. [facility], CT, CT HEAD/BRAIN WO CON, 10/25/2018, 10:12. [facility], CT, CT HEAD/BRAIN WO CON, 10/25/2018, 12:36. FINDINGS: Image quality: Excellent. CSF spaces: Basal cisterns are patent. No extra-axial fluid collections. The ventricles are symmetric in size and shape. Brain: No intracranial bleeds or masses. There is cerebral volume loss for age, with resultant ventricular and sulcal prominence. There are periventricular and deep white matter chronic small vessel ischemic changes. There is intracranial internal carotid artery atherosclerosis. Skull and face: Calvarium and visualized facial bones appear intact, without suspicious lesions. Sinuses: Visualized sinuses and mastoids are clear. IMPRESSION: Normal head CT for age, without an acute process identified. Note is made of age-appropriate brain parenchymal volume loss and chronic small vessel ischemic changes. Dictated by: Good Peña M.D. on 12/14/2018 at 17:10 Approved by: Good Peña M.D. on 12/14/2018 at 17:11
== END ==
PROVIDERS: PCP Family Medicine; Visit Provider Psychiatry & Neurology Neurology
DX: R27.0 Ataxia, unspecified (principal)
CPT/HCPCS: 70450

== ENCOUNTER → 2018-12-24 10:58 | Outpatient (CLI) | payer MEDICARE, OTHER, SELFPAY ==
[2018-06-29 03:40] VITALS: BMI 27.6
[2018-12-24 12:09] LABS: Add Manual Diff / Slide Review NO; Basophils Absolute Auto 0 /uL (0-100); Basophils Percent Auto 0.5 % (0-2); Eosinophils Absolute Auto 100 /uL (0-450); Eosinophils Percent Auto 0.9 % (2-4); Hematocrit 40.8 % (41-53); Hemoglobin 13.8 g/dL (13.5-17.5); Lymphocytes Absolute Auto 2000 /uL (1100-4500); Lymphocytes Percent Auto 30.9 % (25-40); Mean Corpuscular Hemoglobin 32.6 PG (26-34); Mean Corpuscular Volume 96.1 fL (80-100); Monocytes Absolute Auto 600 /uL (0-900); Monocytes Percent Auto 8.5 % (3-14); Neutrophils Absolute Auto 3900 /uL (1500-7000); Neutrophils Percent Auto 59.2 % (50-75); Platelet Count 212 X10^3/uL (150-400); Red Blood Cell Count 4.24 X10^6/uL (4.5-5.9); Red Cell Distribution Width 13.4 % (11.6-14.8); White Blood Cell Count 6.6 X10^3/uL (4.5-11.0)
[2018-12-24 12:36] LABS: Alanine Aminotransferase 36 IU/L (21-72); Albumin 4.1 g/dL (3.5-5.0); Albumin Globulin Ratio 1.6 (1.0-2.8); Alkaline Phosphatase 61 U/L (38-126); Aspartate Aminotransferase 21 IU/L (17-59); BUN Creatinine Ratio 14.2 (6-22); Bilirubin Total 0.5 mg/dL (0.2-1.3); Blood Urea Nitrogen 17 mg/dL (9-20); Calcium 9.8 mg/dL (8.4-10.2); Carbon Dioxide 26 mmol/L (22-32); Chloride 95 mmol/L (98-107); Estimated Glomerular Filt Rate 57.8 mL/min (>60); Globulin 2.5 g/dL (1.7-4.1); Glucose 172 mg/dL (80-110); HEMOLYSIS < 15 (0-50); Potassium 4.2 mmol/L (3.4-5.1); Sodium 135 mmol/L (137-145); Total Protein 6.6 g/dL (6.3-8.2)
[2018-12-24 13:09] LABS: TSH w/ Reflex to FT4 2.39 uIU/mL (0.47-4.68)
== END ==
PROVIDERS: Family Provider Family Medicine; PCP Family Medicine
DX: I48.0 Paroxysmal atrial fibrillation (principal); I47.1 Supraventricular tachycardia
CPT/HCPCS: 36415; 80053; 84443; 85025

== ENCOUNTER 2019-01-13 23:10 | Emergency (ER) | payer MEDICARE, OTHER, SELFPAY ==
[2018-06-29 03:40] VITALS: BMI 27.6
[2019-01-13 23:09] VITALS: BP 154/64; PULSE 70; RESP 22; TEMP 36.5; O2SAT 100; BMI 28.2
--- NOTE | 2019-01-13 23:11 | ED_ITS ---
HPI - Skin/Abscess/Foreign Bdy General Stated complaint: Irregular heart rhythm Time Seen by Provider: 01/13/19 23:11 Related Data Home Medications Medication Instructions Recorded Confirmed tamsulosin [Flomax] 0.4 mg PO BEDTIME #0 09/07/17 01/10/19 Lantus Solostar U-100 Insulin 20 unit SUB-Q BEDTIME 03/28/18 01/10/19 acetaminophen [Tylenol Arthritis 650 mg PO Q8H PRN 03/28/18 01/10/19 Pain] duloxetine [Cymbalta] 30 mg PO BEDTIME 03/28/18 01/10/19 levothyroxine 75 mcg PO DAILY 08/27/18 01/10/19 metformin 1,000 mg PO BID 08/27/18 01/10/19 amiodarone 200 mg tablet 100 mg PO BID tab 12/24/18 01/10/19 apixaban 5 mg tablet 5 mg PO BID 12/24/18 01/10/19 aspirin 81 mg tablet,delayed 81 mg PO DAILY 12/24/18 01/10/19 release atorvastatin 80 mg tablet 40 mg PO DAILY tab 12/24/18 01/10/19 metoprolol tartrate 50 mg tablet 25 mg PO QAM tab 01/10/19 01/10/19 Previous Rx's Medication Instructions Recorded nitroglycerin 0.4 mg SL Q5-15M PRN #30 tab 06/29/18 zaleplon 5 mg capsule 5 mg PO ONCE #2 cap 01/10/19 Allergies Allergy/AdvReac Type Severity Reaction Status Date / Time Abzbqlf-Tze-Hci Reductase Allergy Intermediate MUSCLE PAIN Verified 01/10/19 14:11 Inhibitor [EMANZHJ-YMB-QXZ REDUCTASE INHIBITOR] piroxicam [PIROXICAM] Allergy Mild NAUSEA, Verified 01/10/19 14:11 VOMITING dabigatran etexilate AdvReac Hematuria Verified 01/10/19 14:11 PFSH Social History (Updated 01/10/19 @ 15:10 by MOLLY Leavitt) marital status: details: to Siri, lives in [place] household members: spouse lives independently: Yes caregiver/support person: No housing: house Smoking Status: Never smoker alcohol intake: current substance use type: does not use Discharge Plan Departure Prescriptions: No Action tamsulosin [Flomax] 0.4 MG capsule,extended release 24hr 0.4 mg PO BEDTIME Qty: 0 RF: 0 nitroglycerin 0.4 mg tablet, sublingual 0.4 mg SL Q5-15M PRN (Reason: chest pain) Qty: 30 RF: 2 acetaminophen [Tylenol Arthritis Pain] 650 mg Tablet Extended Release 650 mg PO Q8H PRN (Reason: pain) RF: 0 Lantus Solostar U-100 Insulin 100 unit/mL (3 mL) Insulin Pen 20 unit SUB-Q BEDTIME RF: 0 duloxetine [Cymbalta] 30 MG capsule,delayed release(DR/EC) 30 mg PO BEDTIME RF: 0 metoprolol tartrate 50 mg tablet 25 mg PO QAM RF: 0 levothyroxine 75 mcg tablet 75 mcg PO DAILY RF: 0 metformin 1,000 mg tablet 1,000 mg PO BID RF: 0 apixaban 5 mg tablet 5 mg PO BID RF: 0 atorvastatin 80 mg tablet 40 mg PO DAILY RF: 0 amiodarone 200 mg tablet 100 mg PO BID RF: 0 aspirin [Adult Low Dose Aspirin] 81 mg tablet,delayed release (DR/EC) 81 mg PO DAILY RF: 0 zaleplon 5 mg capsule 5 mg PO ONCE Qty: 2 RF: 0
--- NOTE | 2019-01-13 23:12 | ED.GENADULT ---
HPI - General Adult General Chief complaint: Arrhythmia/Palpitations Stated complaint: Irregular heart rhythm Time Seen by Provider: 01/13/19 23:11 Source: patient and EMS Mode of arrival: EMS Limitations: no limitations History of Present Illness HPI narrative: Patient is an 83-year-old male who was having a sleep study done this evening when they were setting up his monitoring it was reported that the Saw what appeared to be an episode of ventricular tachycardia. It was reported the patient was asymptomatic at this time. The patient reported that he was feeling no symptoms. EMS was called by clinic. Upon their arrival EMS obtained a 12 lead EKG which showed sinus rhythm with heart rate of 71. Patient is atrially paced. Patient was sent to the emergency department for evaluation. Related Data Home Medications Medication Instructions Recorded Confirmed tamsulosin [Flomax] 0.4 mg PO BEDTIME #0 09/07/17 01/14/19 Lantus Solostar U-100 Insulin 10 unit SUB-Q BEDTIME 03/28/18 01/14/19 duloxetine [Cymbalta] 30 mg PO BEDTIME 03/28/18 01/13/19 levothyroxine 75 mcg PO DAILY 08/27/18 01/14/19 metformin 1,000 mg PO BID 08/27/18 01/14/19 amiodarone 200 mg tablet 100 mg PO BID tab 12/24/18 01/14/19 apixaban 5 mg tablet 5 mg PO BID 12/24/18 01/13/19 aspirin 81 mg tablet,delayed 81 mg PO DAILY 12/24/18 01/13/19 release atorvastatin 80 mg tablet 40 mg PO DAILY tab 12/24/18 01/13/19 metoprolol tartrate 50 mg tablet 25 mg PO BID tab 01/10/19 01/14/19 Previous Rx's Medication Instructions Recorded nitroglycerin 0.4 mg SL Q5-15M PRN #30 tab 06/29/18 Allergies Allergy/AdvReac Type Severity Reaction Status Date / Time Dfbwryn-Lun-Slz Reductase Allergy Intermediate MUSCLE PAIN Verified 01/10/19 14:11 Inhibitor [SBGQGIJ-KNB-YMR REDUCTASE INHIBITOR] piroxicam [PIROXICAM] Allergy Mild NAUSEA, Verified 01/10/19 14:11 VOMITING dabigatran etexilate AdvReac Hematuria Verified 01/10/19 14:11 Review of Systems Constitutional Denies fever(s) and Denies headache(s) ENT Ears, Nose, Mouth, and Throat: Denies headache(s) Cardiovascular Denies chest pain, Denies rapid heart rate, Denies palpitations and Denies dyspnea Respiratory Denies dyspnea Gastrointestinal Gastrointestinal: Denies abdominal pain, Denies nausea and Denies vomiting Genitourinary Denies dysuria Musculoskeletal Denies back pain Integumentary/Breasts Denies rash Neurologic Denies headache(s) Endocrine Denies palpitations [facility] Medical History TIA (transient ischemic attack) (Acute) Anxiety (Chronic) CAD (coronary artery disease) (Chronic) DDD (degenerative disc disease), cervical (Chronic) Depression (Chronic) Dyslipidemia (Chronic) Dysuria (Chronic) Elevated serum homocysteine level (Chronic) History of angina (Chronic) Impotence (Chronic) Lumbosacral radiculopathy at L5 (Chronic) Memory deficit (Chronic) Neuropathy of both feet (Chronic) Osteoarthritis (Chronic) Pacemaker (Chronic ~2013) Paroxysmal A-fib (Chronic) 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) RBBB (Chronic) Renal insufficiency (Chronic) Sick sinus syndrome (Chronic) Sleep apnea (Chronic ~2012) Spinal stenosis in cervical region (Chronic) Spinal stenosis of lumbar region (Chronic) Urinary retention (Chronic) Diabetes (Resolved) History of CVA (cerebrovascular accident) (Resolved) History of dizziness (Resolved) History of esophageal reflux (Resolved) History of fatigue (Resolved) History of hematuria (Resolved) Social History marital status: details: aisha Horner, lives in [place] household members: spouse lives independently: Yes caregiver/support person: No housing: house Smoking Status: Never smoker alcohol intake: current substance use type: does not use Exam Initial Vital Signs Initial Vital Signs: Vital Signs Temperature 97.7 F 01/13/19 23:09 Pulse Rate 70 01/13/19 23:09 Respiratory Rate 22 01/13/19 23:09 Blood Pressure 154/64 H 01/13/19 23:09 Pulse Oximetry 100 01/13/19 23:09 Const General: cooperative, well developed, well groomed and No acute distress Orientation: alert, awake and oriented x3 HENMT Head: normal to inspection and normocephalic Resp Effort & Inspection: normal respiratory effort Auscultation: clear to auscultation bilaterally Cardio Rate: regular rate Rhythm: regular rhythm GI Inspection: non-distended Palpation: soft Skin Lesions: no lesions Rashes: no rashes Neuro General: alert, awake and oriented x3 Extrem General: normal to inspection and capillary refill normal Psych Appearance: grossly normal and well kempt Course Orders Ordered: ED Orders 01/13/19 23:15 EKG-12 Lead Stat 01/13/19 23:24 Complete Blood Count AUTO DIFF Stat Comprehensive Metabolic Panel Stat Lipase Stat Partial Thromboplastin Time Stat Prothrombin Time INR Stat Vital Signs - 8 hr 01/13/19 23:09 01/14/19 00:00 01/14/19 00:30 Temperature 97.7 F Pulse Rate 70 70 70 Respiratory Rate 22 17 21 Blood Pressure 154/64 H Blood Pressure [Left Arm] 115/71 124/62 Pulse Oximetry 100 100 98 01/14/19 01:00 01/14/19 01:30 01/14/19 01:56 Temperature Pulse Rate 70 70 70 Respiratory Rate 16 19 19 Blood Pressure 123/98 H Blood Pressure [Left Arm] 116/59 L 102/58 L Pulse Oximetry 97 98 98 Medical Decision Making Lab Data Lab results reviewed: Yes I reviewed the patient's lab results. Result diagrams: 01/13/19 23:24 01/13/19 23:24 Lab Results 01/13/19 01/13/19 01/13/19 Range/Units 23:24 23:24 23:24 WBC 6.8 (4.5-11.0) X10^3/uL RBC 4.16 L (4.5-5.9) X10^6/uL Hgb 13.5 (13.5-17.5) g/dL Hct 39.9 L (41-53) % MCV 95.8 (80-100) fL MCH 32.5 (26-34) PG MCHC 33.9 (30-36) % RDW 13.7 (11.6-14.8) % Plt Count 244 (150-400) X10^3/uL Neut % (Auto) 49.6 L (50-75) % Lymph % (Auto) 40.4 H (25-40) % [place] % (Auto) 8.1 (3-14) % Eos % (Auto) 0.9 L (2-4) % Baso % (Auto) 1.0 (0-2) % Neut # (Auto) 3400 (3353-2164) /uL Lymph # (Auto) 2700 (3677-0726) /uL [place] # (Auto) 500 (0-900) /uL Eos # (Auto) 100 (0-450) /uL Baso # (Auto) 100 (0-100) /uL PT 13.4 H (10.1-12.7) SECONDS INR 1.2 (0.9-1.3) APTT 31 (26.4-36.2) SECONDS Sodium 139 (137-145) mmol/L Potassium 4.5 (3.4-5.1) mmol/L Chloride 98 (98-107) mmol/L Carbon Dioxide 27 (22-32) mmol/L BUN 21 H (9-20) mg/dL Creatinine 1.10 (0.66-1.25) mg/dL Estimated GFR > 60.0 (>60) mL/min BUN/Creatinine Ratio 19.1 (6-22) Glucose 130 H (80-110) mg/dL Calcium 10.0 (8.4-10.2) mg/dL Total Bilirubin 0.6 (0.2-1.3) mg/dL AST 28 (17-59) IU/L ALT 23 (21-72) IU/L Alkaline Phosphatase 69 (38-126) U/L Total Protein 7.9 (6.3-8.2) g/dL Albumin 4.6 (3.5-5.0) g/dL Globulin 3.3 (1.7-4.1) g/dL Albumin/Globulin Ratio 1.4 (1.0-2.8) Lipase 114 (23-300) U/L ECG Data Attestation: I personally reviewed and interpreted this ECG as follows: Prior ECG tracings: not available for review Interpretation: Atrially paced Ventricular rate is 69 Right bundle branch block Normal QRS Right bundle branch block Left anterior fascicular block No ST T wave changes MDM Narrative Medical decision making narrative: Patient was asymptomatic upon arrival here to the emergency department and he stated that he was asymptomatic at the time where it was reported that he potentially had an episode ventricular tachycardia. Patient has a [employer] pacemaker in place. It is a DDDR. Base rate is 70. Max track rate of 120. This was interrogated. Patient has no reported activity for today with specifically no reported activity at the time when he was being monitored at the sleep clinic. Patient was discharged home. He was given strict return precautions. He was instructed to contact his primary doctor and the provider who ordered his sleep study to reschedule this. Patient and his expressed understanding and agreement with plan. Discharge Plan Departure Patient Disposition: Home Clinical Impression: Pacemaker, Feared condition not demonstrated Discharge Date/Time: 01/14/19 01:56 Interventions: ED Discharge Assessment Last Done: 01/14/19 01:56 Activity Restrictions/Additional Instructions: You have a [employer] pacemaker in place. The interrogation of the pacemaker did not demonstrate any abnormalities. It is working fine. I recommend that on Monday you contact the doctor who ordered the sleep test and also the sleep clinic to reschedule your sleep study. Return to the emergency department for any new or worsening symptoms Prescriptions: No Action tamsulosin [Flomax] 0.4 MG capsule,extended release 24hr 0.4 mg PO BEDTIME Qty: 0 RF: 0 nitroglycerin 0.4 mg tablet, sublingual 0.4 mg SL Q5-15M PRN (Reason: chest pain) Qty: 30 RF: 2 Lantus Solostar U-100 Insulin 100 unit/mL (3 mL) Insulin Pen 10 unit SUB-Q BEDTIME RF: 0 duloxetine [Cymbalta] 30 MG capsule,delayed release(DR/EC) 30 mg PO BEDTIME RF: 0 metoprolol tartrate 50 mg tablet 25 mg PO BID RF: 0 levothyroxine 75 mcg tablet 75 mcg PO DAILY RF: 0 metformin 1,000 mg tablet 1,000 mg PO BID RF: 0 apixaban 5 mg tablet 5 mg PO BID RF: 0 atorvastatin 80 mg tablet 40 mg PO DAILY RF: 0 amiodarone 200 mg tablet 100 mg PO BID RF: 0 aspirin [Adult Low Dose Aspirin] 81 mg tablet,delayed release (DR/EC) 81 mg PO DAILY RF: 0 Referrals: Jose De Jesus Smith MD [Primary Care Provider] -
[2019-01-13 23:28] LABS: Add Manual Diff / Slide Review NO; Basophils Absolute Auto 100 /uL (0-100); Eosinophils Absolute Auto 100 /uL (0-450); Eosinophils Percent Auto 0.9 % (2-4); Hematocrit 39.9 % (41-53); Hemoglobin 13.5 g/dL (13.5-17.5); Lymphocytes Absolute Auto 2700 /uL (1100-4500); Lymphocytes Percent Auto 40.4 % (25-40); Mean Corpuscular HGB Conc 33.9 % (30-36); Mean Corpuscular Hemoglobin 32.5 PG (26-34); Mean Corpuscular Volume 95.8 fL (80-100); Monocytes Absolute Auto 500 /uL (0-900); Monocytes Percent Auto 8.1 % (3-14); Neutrophils Absolute Auto 3400 /uL (1500-7000); Neutrophils Percent Auto 49.6 % (50-75); Platelet Count 244 X10^3/uL (150-400); Red Blood Cell Count 4.16 X10^6/uL (4.5-5.9); Red Cell Distribution Width 13.7 % (11.6-14.8); White Blood Cell Count 6.8 X10^3/uL (4.5-11.0)
[2019-01-13 23:31] LABS: INR 1.2 (0.9-1.3); Prothrombin Time 13.4 SECONDS (10.1-12.7)
[2019-01-13 23:37] LABS: Alanine Aminotransferase 23 IU/L (21-72); Albumin 4.6 g/dL (3.5-5.0); Albumin Globulin Ratio 1.4 (1.0-2.8); Alkaline Phosphatase 69 U/L (38-126); Aspartate Aminotransferase 28 IU/L (17-59); BUN Creatinine Ratio 19.1 (6-22); Bilirubin Total 0.6 mg/dL (0.2-1.3); Blood Urea Nitrogen 21 mg/dL (9-20); Carbon Dioxide 27 mmol/L (22-32); Chloride 98 mmol/L (98-107); Estimated Glomerular Filt Rate > 60.0 mL/min (>60); Globulin 3.3 g/dL (1.7-4.1); Glucose 130 mg/dL (80-110); Lipase 114 U/L (23-300); Sodium 139 mmol/L (137-145); Total Protein 7.9 g/dL (6.3-8.2)
[2019-01-13 23:38] LABS: HEMOLYSIS 71 (0-50)
[2019-01-13 23:39] LABS: Potassium 4.5 mmol/L (3.4-5.1)
[2019-01-13 23:42] LABS: PTT Partial Thromboplastin Tim 31 SECONDS (26.4-36.2)
[2019-01-14] VITALS: BP 115/71; PULSE 70; RESP 17; O2SAT 100
[2019-01-14 00:30] VITALS: BP 124/62; PULSE 70; RESP 21; O2SAT 98
[2019-01-14 01:00] VITALS: BP 116/59; PULSE 70; RESP 16; O2SAT 97
--- NOTE | 2019-01-14 01:06 | PC.NURSE ---
pacemaker interrogated. waiting for information to be transmitted. provider aware and no new orders at this time. patient and spouse informed of wait.
[2019-01-14 01:30] VITALS: BP 102/58; PULSE 70; RESP 19; O2SAT 98
[2019-01-14 01:56] VITALS: BP 123/98; PULSE 70; RESP 19; O2SAT 98
== END 2019-01-14 01:56 | disposition home or self-care (01) ==
PROVIDERS: Emergency Provider Emergency Medicine; Family Provider Family Medicine; PCP Family Medicine
DX: I47.2 Ventricular tachycardia (principal); Z71.1 Person with feared health complaint in whom no diagnosis is made; Z95.0 Presence of cardiac pacemaker
CPT/HCPCS: 80053; 83690; 85025; 85610; 85730; 93005; 99283; 99284

== ENCOUNTER 2019-01-22 12:11 | Emergency (ER) | payer MEDICARE, OTHER, SELFPAY ==
[2018-06-29 03:40] VITALS: BMI 27.6
[2019-01-22 12:26] VITALS: BP 108/70; PULSE 78; RESP 16; TEMP 36.6; O2SAT 98; BMI 27.3
--- NOTE | 2019-01-22 12:48 | ED_ITS ---
HPI - Syncope General Chief Complaint: Syncope Stated Complaint: PASSING OUT BLOOD IN URINE Time Seen by Provider: 01/22/19 12:46 Source: patient and family Mode of arrival: ambulatory Limitations: no limitations History of Present Illness HPI narrative: Patient is an 83-year-old male who I have seen in this emergency department in the past when he was having an acute CVA. I transferred him to [facility]. Patient stated that from that event he has some left- sided weakness however is able to ambulate at home with some assistance touching the ramos. When he is out for long distances he does use a cane or a walker. He also has some residual memory issues. Reports today because this morning he had an episode where he was walking into the kitchen to eat breakfast when he ?passed out? was was witnessed by family and they stated that he did not hit his head. There appeared to be no seizure-like activity. No loss of bowel or bladder. They stated that he was alert and oriented very quickly after the event. Patient stated that he remembers walking to the kitchen when he had a room spinning sensation. He is unsure whether not he tripped over anything but he did fall. Upon further questioning it appears that the patient has had vertigo sensations for some time now. He states that he had the vertigo sensations prior to his stroke. His also states that they saw a neurologist about this. His states that the neurologist ?did not think it was vertigo ?. Family reports no radiologic studies were performed. He was not given any medications. Patient states that since that time (before the stroke) that he has had almost daily vertigo. He states that it is much better when he is lying down but worse when he is standing up. He states that it seems to be there all the time but there are periods when it is worse than others. He denies any other associated symptoms. since his stroke he has had other episodes where he has ?passed out? and fallen. Patient did recently have a watchmen placed for is atrial fibrillation however still on apixaban. Related Data Home Medications Medication Instructions Recorded Confirmed tamsulosin [Flomax] 0.4 mg PO BEDTIME #0 09/07/17 01/22/19 Lantus Solostar U-100 Insulin 10 unit SUB-Q BEDTIME 03/28/18 01/22/19 duloxetine [Cymbalta] 30 mg PO BEDTIME 03/28/18 01/22/19 levothyroxine 75 mcg PO DAILY 08/27/18 01/22/19 metformin mg PO BID 08/27/18 01/14/19 amiodarone 200 mg tablet 200 mg PO BID tab 12/24/18 01/22/19 apixaban 5 mg tablet 5 mg PO BID 12/24/18 01/22/19 aspirin 81 mg tablet,delayed 81 mg PO DAILY 12/24/18 01/13/19 release atorvastatin 80 mg tablet 40 mg PO DAILY tab 12/24/18 01/22/19 escitalopram oxalate 10 mg PO DAILY 01/22/19 01/22/19 magnesium chloride [Mag 64] 64 mg PO DAILY 01/22/19 01/22/19 metoprolol succinate 75 mg PO DAILY 01/22/19 01/22/19 pravastatin 5 mg PO DAILY 01/22/19 01/22/19 Previous Rx's Medication Instructions Recorded nitroglycerin 0.4 mg SL Q5-15M PRN #30 tab 06/29/18 meclizine 25 mg PO BID-TID PRN #14 tab 01/22/19 Allergies Allergy/AdvReac Type Severity Reaction Status Date / Time Hoiokri-Rog-Qwp Reductase Allergy Intermediate MUSCLE PAIN Verified 01/22/19 12:29 Inhibitor [LDRKAOH-UXS-EUH REDUCTASE INHIBITOR] piroxicam [PIROXICAM] Allergy Mild NAUSEA, Verified 01/22/19 12:29 VOMITING dabigatran etexilate AdvReac Hematuria Verified 01/22/19 12:29 Review of Systems Constitutional Denies fatigue, Denies fever(s), Reports frequent falls, Denies headache(s) and Denies malaise Eyes Denies diplopia and Denies eye discharge ENT Ears, Nose, Mouth, and Throat: Reports vertigo, Reports dizziness, Denies headache(s), Reports disequilibrium, Denies tinnitus and Denies sore throat Cardiovascular Denies chest pain and Denies dyspnea Respiratory Denies cough and Denies dyspnea Gastrointestinal Gastrointestinal: Denies abdominal pain, Denies nausea and Denies vomiting Genitourinary Denies dysuria Musculoskeletal Denies myalgias, Denies arthralgias and Denies numbness Integumentary/Breasts Denies rash Neurologic Denies abnormal speech, Denies behavioral changes, Reports vertigo, Reports dizziness, Reports frequent falls, Denies headache(s), Denies focal weakness, Denies numbness, Denies seizure-like activity, Denies sensory deficit and Reports disequilibrium Psychiatric Denies behavioral changes Endocrine Denies fatigue Hematologic/Lymphatic Comments: On apixaban [facility] Medical History TIA (transient ischemic attack) (Acute) Anxiety (Chronic) CAD (coronary artery disease) (Chronic) DDD (degenerative disc disease), cervical (Chronic) Depression (Chronic) Dyslipidemia (Chronic) Dysuria (Chronic) Elevated serum homocysteine level (Chronic) History of angina (Chronic) Impotence (Chronic) Lumbosacral radiculopathy at L5 (Chronic) Memory deficit (Chronic) Neuropathy of both feet (Chronic) Osteoarthritis (Chronic) Pacemaker (Chronic ~2013) Paroxysmal A-fib (Chronic) 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) RBBB (Chronic) Renal insufficiency (Chronic) Sick sinus syndrome (Chronic) Sleep apnea (Chronic ~2012) Spinal stenosis in cervical region (Chronic) Spinal stenosis of lumbar region (Chronic) Urinary retention (Chronic) Diabetes (Resolved) History of CVA (cerebrovascular accident) (Resolved) History of dizziness (Resolved) History of esophageal reflux (Resolved) History of fatigue (Resolved) History of hematuria (Resolved) Surgical History H/O laminectomy (Resolved) H/O shoulder surgery (Resolved) H/O thumb surgery (Resolved) History of appendectomy (Resolved) History of bladder surgery (Resolved) History of cardiac cath (Resolved ~2012) History of cholecystectomy (Resolved ~2012) History of cystoscopy (Resolved) History of lumbar fusion (Resolved) History of tonsillectomy (Resolved) History of vasectomy (Resolved) Status post right foot surgery (Resolved) Social History marital status: details: aisha Horner, lives in [place] household members: spouse lives independently: Yes caregiver/support person: No housing: house Smoking Status: Never smoker alcohol intake: current substance use type: does not use Social History marital status: details: aisha Horner, lives in [place] household members: spouse lives independently: Yes caregiver/support person: No housing: house Smoking Status: Never smoker alcohol intake: current substance use type: does not use Exam Initial Vital Signs Initial Vital Signs: Vital Signs Temperature 97.8 F 01/22/19 12:26 Pulse Rate 78 01/22/19 12:26 Respiratory Rate 16 01/22/19 12:26 Blood Pressure 108/70 01/22/19 12:26 Pulse Oximetry 98 01/22/19 12:26 Const General: cooperative, comfortable, well developed, well groomed and No acute distress Orientation: alert, awake and oriented x3 Limitations: mental status not altered HENMT Head: normal to inspection and normocephalic Nose: external nose normal Resp Effort & Inspection: normal respiratory effort Auscultation: clear to auscultation bilaterally Cardio Rate: regular rate Rhythm: regular rhythm Pulses: radial pulses present GI Inspection: non-distended Palpation: soft, No firm and No tender Back/Spine/Pelvis Cervical Spine: No cervical ROM abnormal Skin Lesions: no lesions Rashes: no rashes Neuro General: alert, awake and oriented x3 Cranial Nerves: CN's II-XI intact bilaterally Cognition: normal cognition Speech: speech normal Motor: muscle tone normal throughout Sensory Exam: no sensory deficits noted Extrem General: normal to inspection and capillary refill normal Psych Appearance: grossly normal and well kempt Scores GCS [place] coma scale eye opening: Spontaneous Katarzyna coma scale verbal response: Orientated Katarzyna coma scale motor response: Obey commands Katarzyna coma scale total score: 15 Course Orders Ordered: ED Orders 01/22/19 12:28 EKG-12 Lead Stat 01/22/19 12:50 Basic Metabolic Panel Stat Complete Blood Count AUTO DIFF Stat Partial Thromboplastin Time Stat Prothrombin Time INR Stat 01/22/19 13:41 CT head/brain wo con Stat Vital Signs - 8 hr 01/22/19 12:26 01/22/19 13:21 01/22/19 14:45 Temperature 97.8 F Pulse Rate 78 75 70 Respiratory Rate 16 18 14 Blood Pressure 108/70 Blood Pressure [Right Arm] 118/73 136/78 Pulse Oximetry 98 96 100 MDM - Syncope Lab Data Attestation: I reviewed the patient's lab results. Result diagrams: 01/22/19 12:50 01/22/19 12:50 Lab Results 01/22/19 01/22/19 01/22/19 Range/Units 12:50 12:50 12:50 WBC 6.2 (4.5-11.0) X10^3/uL RBC 4.01 L (4.5-5.9) X10^6/uL Hgb 12.8 L (13.5-17.5) g/dL Hct 38.6 L (41-53) % MCV 96.5 (80-100) fL MCH 31.9 (26-34) PG MCHC 33.1 (30-36) % RDW 13.8 (11.6-14.8) % Plt Count 227 (150-400) X10^3/uL Neut % (Auto) 61.1 (50-75) % Lymph % (Auto) 27.5 (25-40) % Gaines % (Auto) 10.1 (3-14) % Eos % (Auto) 0.4 L (2-4) % Baso % (Auto) 0.9 (0-2) % Neut # (Auto) 3800 (8379-6039) /uL Lymph # (Auto) 1700 (5985-6410) /uL Gaines # (Auto) 600 (0-900) /uL Eos # (Auto) 0 (0-450) /uL Baso # (Auto) 100 (0-100) /uL PT 15.4 H (10.1-12.7) SECONDS INR 1.3 (0.9-1.3) APTT 33 D (26.4-36.2) SECONDS Sodium 136 L (137-145) mmol/L Potassium 4.0 (3.4-5.1) mmol/L Chloride 99 (98-107) mmol/L Carbon Dioxide 24 (22-32) mmol/L BUN 17 (9-20) mg/dL Creatinine 1.10 (0.66-1.25) mg/dL Estimated GFR > 60.0 (>60) mL/min BUN/Creatinine Ratio 15.5 (6-22) Glucose 132 H (80-110) mg/dL Calcium 9.0 (8.4-10.2) mg/dL Imaging Data CT scan - head: Radiologist's impression: Sotero Kasper 83 M [address] [address] [address] Scan Report Signed Patient: Sotero Kasper WMR#: [id number] : 5Acct:[id number] Age/Sex: 83 / MDate of Service: 01/22/19 Loc: ED Accession Number: [id number] Procedure: CT head/brain wo con Ordering Provider: Jose De Jesus Christie D.O. PROCEDURE: CT HEAD/BRAIN WO CON INDICATIONS: Vertigo with syncope TECHNIQUE: Noncontrast 4.5 mm thick angled axial sections acquired from the foramen magnum to the vertex, with coronal and sagittal reformats. For radiation dose reduction, the following was used: automated exposure control, adjustment of mA and/or kV according to patient size. COMPARISON: [facility], CT, CT HEAD/BRAIN WO CON, 12/14/2018, 15:26. [facility], CT, CT ANGIO HEAD, 08/24/2018, 11:22. [facility], CT, HEAD W&WO CONTRAST, 07/14/2017, 9:48. [facility], CT, HEAD WITHOUT CONTRAST, 05/10/2017, 15:37. [facility], CT, CT HEAD/BRAIN WO CON, 10/25/2018, 10:12. [facility], CT, CT ANGIO HEAD AND NECK, 10/25/2018, 11:30. [facility], CT, CT HEAD/BRAIN WO CON, 10/25/2018, 12:36. FINDINGS: Image quality: Excellent. CSF spaces: Basal cisterns are patent. No extra-axial fluid collections. The ventricles are symmetric in size and shape. Brain: No intracranial bleeds or masses. There is cerebral volume loss for age, with resultant ventricular and sulcal prominence. There are periventricular and deep white matter chronic small vessel ischemic changes. There is intracranial internal carotid artery atherosclerosis. Skull and face: Calvarium and visualized facial bones appear intact, without suspicious lesions. Sinuses: Visualized sinuses and mastoids are clear. IMPRESSION: Normal intracranial study for age, without an acute abnormality identified. Stable brain parenchymal volume loss and chronic small vessel ischemic changes are noted. Dictated by: Good Peña M.D. on 01/22/2019 at 13:32 Approved by: Good Peña M.D. on 01/22/2019 at 13:33 ECG Data Attestation: I personally reviewed and interpreted this ECG as follows: Prior ECG tracings: not available for review Interpretation: Ventricular paced Rate is 69 Left axis deviation QRS duration 173 milliseconds Normal QTC No ST T wave changes MDM Narrative Medical decision making narrative: Patient's head CT today was unremarkable. it appears that the vertigo that he has been having is not new. Also appears that he has been having episodes since prior to his stroke. Since having his stroke he has had multiple imaging of his head to include CT scans and MRIs and has not showed any cerebellar/posterior stroke findings. He is not currently taking any medications for vertigo. He is ventricularly paced. Is currently on apixaban. He has never been evaluated by ENT in the past. His labs are unremarkable. I feel that since the vertigo has been occurring since before his stroke and since the MRIs to workup this condition have been completed without any findings that his symptoms are more likely a peripheral vertigo. We had a long discussion with the family regarding trip as urge at home. I did talk with Dr. Howard who is on-call for the patient's primary provider to ask if she could get a message to the patient's primary provider about a potential referral to see ear nose and throat. The patient stated that he already has an appointment scheduled for tomorrow with his primary provider. Will send home with a prescription for meclizine to see if this does not improve some of his symptoms. the patient expressed understanding and agreement. Family also expressed agreement. Patient made no mention of blood in his urine or dark urine upon my evaluation. This was not addressed during this ED visit. Discharge Plan Departure Patient Disposition: Home Clinical Impression: Vertigo Discharge Date/Time: 01/22/19 15:21 Interventions: ED Discharge Assessment Last Done: 01/22/19 15:16 Instructions: DI for Vertigo Activity Restrictions/Additional Instructions: Continue all of your medications as directed. Keep your appointment that you have with your primary doctor tomorrow. Return to the emergency department for any new or worsening symptoms. your medications were transmitted electronically to [facility] Prescriptions: New meclizine 25 mg tablet 25 mg PO BID-TID PRN (Reason: motion sickness) Qty: 14 RF: 0 No Action tamsulosin [Flomax] 0.4 MG capsule,extended release 24hr 0.4 mg PO BEDTIME Qty: 0 RF: 0 nitroglycerin 0.4 mg tablet, sublingual 0.4 mg SL Q5-15M PRN (Reason: chest pain) Qty: 30 RF: 2 metoprolol succinate 50 mg tablet extended release 24 hr 75 mg PO DAILY RF: 0 pravastatin 10 mg tablet 5 mg PO DAILY RF: 0 escitalopram oxalate 10 mg tablet 10 mg PO DAILY RF: 0 magnesium chloride [Mag 64] 64 mg tablet,delayed release (DR/EC) 64 mg PO DAILY RF: 0 Lantus Solostar U-100 Insulin 100 unit/mL (3 mL) Insulin Pen 10 unit SUB-Q BEDTIME RF: 0 duloxetine [Cymbalta] 30 MG capsule,delayed release(DR/EC) 30 mg PO BEDTIME RF: 0 levothyroxine 75 mcg tablet 75 mcg PO DAILY RF: 0 metformin 1,000 mg tablet PO BID RF: 0 apixaban 5 mg tablet 5 mg PO BID RF: 0 atorvastatin 80 mg tablet 40 mg PO DAILY RF: 0 amiodarone 200 mg tablet 200 mg PO BID RF: 0 aspirin [Adult Low Dose Aspirin] 81 mg tablet,delayed release (DR/EC) 81 mg PO DAILY RF: 0 Referrals: Jose De Jesus Smith MD [Primary Care Provider] -
[2019-01-22 13:02] LABS: Add Manual Diff / Slide Review NO; Basophils Absolute Auto 100 /uL (0-100); Basophils Percent Auto 0.9 % (0-2); Eosinophils Absolute Auto 0 /uL (0-450); Eosinophils Percent Auto 0.4 % (2-4); Hematocrit 38.6 % (41-53); Hemoglobin 12.8 g/dL (13.5-17.5); Lymphocytes Absolute Auto 1700 /uL (1100-4500); Lymphocytes Percent Auto 27.5 % (25-40); Mean Corpuscular HGB Conc 33.1 % (30-36); Mean Corpuscular Hemoglobin 31.9 PG (26-34); Mean Corpuscular Volume 96.5 fL (80-100); Monocytes Absolute Auto 600 /uL (0-900); Monocytes Percent Auto 10.1 % (3-14); Neutrophils Absolute Auto 3800 /uL (1500-7000); Neutrophils Percent Auto 61.1 % (50-75); Platelet Count 227 X10^3/uL (150-400); Red Blood Cell Count 4.01 X10^6/uL (4.5-5.9); Red Cell Distribution Width 13.8 % (11.6-14.8); White Blood Cell Count 6.2 X10^3/uL (4.5-11.0)
--- NOTE | 2019-01-22 13:02 | PC.NURSE ---
Patient woke this morning and normal blood sugar was much lower than normal in 80's. Patient dizzy more than normal. Had a syncopal episode while walking to the kitchen. Denies hitting his head is on blood thinners. Patient reports decrease food intake secondary to decrease appetite and occasional vomiting after eating. Patient has noticed dark colored urine but denies blood in vomit or stools. Patient had a watchman procedure at [facility] a few weeks ago. Recent increase in voltage of pacemaker. Patient reports a headache as well. Increase dizziness when changing positions from sitting to standing.
[2019-01-22 13:18] LABS: INR 1.3 (0.9-1.3); Prothrombin Time 15.4 SECONDS (10.1-12.7)
[2019-01-22 13:21] VITALS: BP 118/73; PULSE 75; RESP 18; O2SAT 96
[2019-01-22 13:21] LABS: PTT Partial Thromboplastin Tim 33 SECONDS (26.4-36.2)
[2019-01-22 13:25] LABS: BUN Creatinine Ratio 15.5 (6-22); Blood Urea Nitrogen 17 mg/dL (9-20); Carbon Dioxide 24 mmol/L (22-32); Chloride 99 mmol/L (98-107); Estimated Glomerular Filt Rate > 60.0 mL/min (>60); Glucose 132 mg/dL (80-110); HEMOLYSIS < 15 (0-50); Sodium 136 mmol/L (137-145)
--- NOTE | 2019-01-22 13:41 | DI.CT.S_ITS ---
PROCEDURE: CT HEAD/BRAIN WO CON INDICATIONS: Vertigo with syncope TECHNIQUE: Noncontrast 4.5 mm thick angled axial sections acquired from the foramen magnum to the vertex, with coronal and sagittal reformats. For radiation dose reduction, the following was used: automated exposure control, adjustment of mA and/or kV according to patient size. COMPARISON: [facility], CT, CT HEAD/BRAIN WO CON, 12/14/2018, 15:26. [facility], CT, CT ANGIO HEAD, 08/24/2018, 11:22. [facility], CT, HEAD W&WO CONTRAST, 07/14/2017, 9:48. [facility], CT, HEAD WITHOUT CONTRAST, 05/10/2017, 15:37. [facility], CT, CT HEAD/BRAIN WO CON, 10/25/2018, 10:12. [facility], CT, CT ANGIO HEAD AND NECK, 10/25/2018, 11:30. [facility], CT, CT HEAD/BRAIN WO CON, 10/25/2018, 12:36. FINDINGS: Image quality: Excellent. CSF spaces: Basal cisterns are patent. No extra-axial fluid collections. The ventricles are symmetric in size and shape. Brain: No intracranial bleeds or masses. There is cerebral volume loss for age, with resultant ventricular and sulcal prominence. There are periventricular and deep white matter chronic small vessel ischemic changes. There is intracranial internal carotid artery atherosclerosis. Skull and face: Calvarium and visualized facial bones appear intact, without suspicious lesions. Sinuses: Visualized sinuses and mastoids are clear. IMPRESSION: Normal intracranial study for age, without an acute abnormality identified. Stable brain parenchymal volume loss and chronic small vessel ischemic changes are noted. Dictated by: Good Peña M.D. on 01/22/2019 at 13:32 Approved by: Good Peña M.D. on 01/22/2019 at 13:33
[2019-01-22 14:45] VITALS: BP 136/78; PULSE 70; RESP 14; O2SAT 100
== END 2019-01-22 15:21 | disposition home or self-care (01) ==
PROVIDERS: Emergency Provider Emergency Medicine; Family Provider Family Medicine; PCP Family Medicine
DX: R42 Dizziness and giddiness (principal); R55 Syncope and collapse; R31.9 Hematuria, unspecified; W19.XXXA Unspecified fall, initial encounter; Z79.01 Long term (current) use of anticoagulants
CPT/HCPCS: 36591; 70450; 80048; 85025; 85610; 85730; 93005; 99282; 99285

== ENCOUNTER 2019-02-25 01:15 | Emergency (ER) | payer MEDICARE, OTHER, SELFPAY ==
[2018-06-29 03:40] VITALS: BMI 27.6
--- NOTE | 2019-02-25 01:20 | ED.GENADULT ---
HPI - General Adult General Chief complaint: Arrhythmia/Palpitations Stated complaint: Tachycardic Time Seen by Provider: 02/25/19 01:19 Source: patient Mode of arrival: EMS Limitations: no limitations History of Present Illness HPI narrative: Patient is an 83-year-old male who I have evaluated her in the emergency department in the past for multiple issues. He arrived here by EMS after they were called to the sleep clinic with the patient was having a sleep study. It appears that during his sleep study he had what the technicians there thought her runs of ventricular tachycardia. Patient was asymptomatic. EMS reports that he has been asymptomatic upon their arrival. Patient has no complaints. Related Data Home Medications Medication Instructions Recorded Confirmed tamsulosin [Flomax] 0.4 mg PO BEDTIME #0 09/07/17 01/22/19 Lantus Solostar U-100 Insulin 10 unit SUB-Q BEDTIME 03/28/18 01/22/19 duloxetine [Cymbalta] 30 mg PO BEDTIME 03/28/18 01/22/19 levothyroxine 75 mcg PO DAILY 08/27/18 01/22/19 metformin mg PO BID 08/27/18 01/14/19 amiodarone 200 mg tablet 200 mg PO BID tab 12/24/18 01/22/19 apixaban 5 mg tablet 5 mg PO BID 12/24/18 01/22/19 aspirin 81 mg tablet,delayed 81 mg PO DAILY 12/24/18 01/13/19 release atorvastatin 80 mg tablet 40 mg PO DAILY tab 12/24/18 01/22/19 escitalopram oxalate 10 mg PO DAILY 01/22/19 01/22/19 magnesium chloride [Mag 64] 64 mg PO DAILY 01/22/19 01/22/19 metoprolol succinate 75 mg PO DAILY 01/22/19 01/22/19 pravastatin 5 mg PO DAILY 01/22/19 01/22/19 Previous Rx's Medication Instructions Recorded nitroglycerin 0.4 mg SL Q5-15M PRN #30 tab 06/29/18 meclizine 25 mg PO BID-TID PRN #14 tab 01/22/19 Allergies Allergy/AdvReac Type Severity Reaction Status Date / Time Wejffst-Qmu-Nel Reductase Allergy Intermediate MUSCLE PAIN Verified 01/22/19 12:29 Inhibitor [CHMFHGK-[id number]-[id number] REDUCTASE INHIBITOR] piroxicam [PIROXICAM] Allergy Mild NAUSEA, Verified 01/22/19 12:29 VOMITING dabigatran etexilate AdvReac Hematuria Verified 01/22/19 12:29 Review of Systems Constitutional Denies fever(s) and Denies headache(s) ENT Ears, Nose, Mouth, and Throat: Denies vertigo, Denies dizziness and Denies headache(s) Cardiovascular Denies chest pain and Denies dyspnea Respiratory Denies dyspnea Gastrointestinal Gastrointestinal: Denies abdominal pain Musculoskeletal Denies myalgias and Denies arthralgias Integumentary/Breasts Denies rash Neurologic Denies vertigo, Denies dizziness and Denies headache(s) Hematologic/Lymphatic Denies easy bleeding and Denies easy bruising [facility] Medical History TIA (transient ischemic attack) (Acute) Anxiety (Chronic) CAD (coronary artery disease) (Chronic) DDD (degenerative disc disease), cervical (Chronic) Depression (Chronic) Dyslipidemia (Chronic) Dysuria (Chronic) Elevated serum homocysteine level (Chronic) History of angina (Chronic) Impotence (Chronic) Lumbosacral radiculopathy at L5 (Chronic) Memory deficit (Chronic) Neuropathy of both feet (Chronic) Osteoarthritis (Chronic) Pacemaker (Chronic ~2013) Paroxysmal A-fib (Chronic) 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) RBBB (Chronic) Renal insufficiency (Chronic) Sick sinus syndrome (Chronic) Sleep apnea (Chronic ~2012) Spinal stenosis in cervical region (Chronic) Spinal stenosis of lumbar region (Chronic) Urinary retention (Chronic) Diabetes (Resolved) History of CVA (cerebrovascular accident) (Resolved) History of dizziness (Resolved) History of esophageal reflux (Resolved) History of fatigue (Resolved) History of hematuria (Resolved) Surgical History H/O laminectomy (Resolved) H/O shoulder surgery (Resolved) H/O thumb surgery (Resolved) History of appendectomy (Resolved) History of bladder surgery (Resolved) History of cardiac cath (Resolved ~2012) History of cholecystectomy (Resolved ~2012) History of cystoscopy (Resolved) History of lumbar fusion (Resolved) History of tonsillectomy (Resolved) History of vasectomy (Resolved) Status post right foot surgery (Resolved) Social History marital status: details: aisha Hroner, lives in [place] household members: spouse lives independently: Yes caregiver/support person: No housing: house Smoking Status: Never smoker alcohol intake: current substance use type: does not use Social History marital status: details: aisha Horner, lives in [place] household members: spouse lives independently: Yes caregiver/support person: No housing: house Smoking Status: Never smoker alcohol intake: current substance use type: does not use Exam Initial Vital Signs Initial Vital Signs: Vital Signs Temperature 97.5 F L 02/25/19 01:21 Pulse Rate 82 02/25/19 01:21 Respiratory Rate 16 02/25/19 01:21 Blood Pressure 139/73 02/25/19 01:21 Pulse Oximetry 97 02/25/19 01:21 Const General: cooperative, comfortable, well developed, well groomed and No acute distress Orientation: alert, awake and oriented x3 HENMT Head: normal to inspection and normocephalic Resp Effort & Inspection: normal respiratory effort Auscultation: clear to auscultation bilaterally Cardio Rate: regular rate Rhythm: regular rhythm GI Inspection: non-distended Palpation: soft and No firm Skin Lesions: no lesions Rashes: no rashes Neuro General: alert and awake Cognition: normal cognition Speech: speech normal Extrem General: capillary refill normal and No edema Psych Appearance: grossly normal and well kempt Course Orders Ordered: ED Orders 02/25/19 01:20 EKG-12 Lead Stat Vital Signs - 8 hr 02/25/19 01:21 02/25/19 01:30 Temperature 97.5 F L Pulse Rate 82 75 Respiratory Rate 16 14 Blood Pressure 139/73 Blood Pressure [Left Arm] 124/66 Pulse Oximetry 97 95 Medical Decision Making ECG Data Attestation: I personally reviewed and interpreted this ECG as follows: Interpretation: Atrially paced Ventricular rate is 69 Right bundle branch block QRS [address] T wave changes MDM Narrative Medical decision making narrative: Patient has a [employer] DDDR pacemaker base rate is 70. Implanted on August 25, 2013. Patient was at a sleep study where on the monitor the thought he had runs of V-tach. I was able to evaluate this tracing and appeared to be that the patient was atrially paced. There is no signs of V-tach on this monitor. His EKG here shows atrially paced. We interrogated his pacemaker which shows a he had no events over the past 24 hours. His last event was February 10. Patient is asymptomatic. Hold on further workup for now. Patient struck to contact his primary doctor. Discharge Plan Departure Patient Disposition: Home Clinical Impression: Pacemaker Activity Restrictions/Additional Instructions: The interrogation of your pacemaker this evening showed no abnormalities over the past 24 hours. Continue all of your medications as directed. Contact your primary care doctor for follow-up. Prescriptions: No Action tamsulosin [Flomax] 0.4 MG capsule,extended release 24hr 0.4 mg PO BEDTIME Qty: 0 RF: 0 nitroglycerin 0.4 mg tablet, sublingual 0.4 mg SL Q5-15M PRN (Reason: chest pain) Qty: 30 RF: 2 metoprolol succinate 50 mg tablet extended release 24 hr 75 mg PO DAILY RF: 0 pravastatin 10 mg tablet 5 mg PO DAILY RF: 0 escitalopram oxalate 10 mg tablet 10 mg PO DAILY RF: 0 magnesium chloride [Mag 64] 64 mg tablet,delayed release (DR/EC) 64 mg PO DAILY RF: 0 meclizine 25 mg tablet 25 mg PO BID-TID PRN (Reason: motion sickness) Qty: 14 RF: 0 Lantus Solostar U-100 Insulin 100 unit/mL (3 mL) Insulin Pen 10 unit SUB-Q BEDTIME RF: 0 duloxetine [Cymbalta] 30 MG capsule,delayed release(DR/EC) 30 mg PO BEDTIME RF: 0 levothyroxine 75 mcg tablet 75 mcg PO DAILY RF: 0 metformin 1,000 mg tablet PO BID RF: 0 apixaban 5 mg tablet 5 mg PO BID RF: 0 atorvastatin 80 mg tablet 40 mg PO DAILY RF: 0 amiodarone 200 mg tablet 200 mg PO BID RF: 0 aspirin [Adult Low Dose Aspirin] 81 mg tablet,delayed release (DR/EC) 81 mg PO DAILY RF: 0 Referrals: Jose De Jesus Smith MD [Primary Care Provider] -
[2019-02-25 01:21] VITALS: BP 139/73; PULSE 82; RESP 16; TEMP 36.4; O2SAT 97; BMI 26.6
[2019-02-25 01:30] VITALS: BP 124/66; PULSE 75; RESP 14; O2SAT 95
--- NOTE | 2019-02-25 01:38 | PC.NURSE ---
pacemaker interrogated. provider aware.
[2019-02-25 02:00] VITALS: BP 124/69; PULSE 70; RESP 17; O2SAT 98
== END 2019-02-25 02:21 | disposition home or self-care (01) ==
PROVIDERS: Emergency Provider Emergency Medicine; Family Provider Family Medicine; PCP Family Medicine
DX: R00.0 Tachycardia, unspecified (principal); Z95.0 Presence of cardiac pacemaker
CPT/HCPCS: 93005; 99282

== ENCOUNTER → 2019-03-20 11:40 | Outpatient (CLI) | payer MEDICARE, OTHER, SELFPAY ==
[2018-06-29 03:40] VITALS: BMI 27.6
[2019-03-20 13:00] LABS: Add Manual Diff / Slide Review NO; Basophils Absolute Auto 100 /uL (0-100); Basophils Percent Auto 0.9 % (0-2); Eosinophils Absolute Auto 0 /uL (0-450); Eosinophils Percent Auto 0.8 % (2-4); Hematocrit 39.3 % (41-53); Lymphocytes Absolute Auto 2100 /uL (1100-4500); Lymphocytes Percent Auto 35.1 % (25-40); Mean Corpuscular HGB Conc 33.1 % (30-36); Mean Corpuscular Hemoglobin 31.8 PG (26-34); Mean Corpuscular Volume 95.9 fL (80-100); Monocytes Absolute Auto 500 /uL (0-900); Monocytes Percent Auto 8.7 % (3-14); Neutrophils Absolute Auto 3200 /uL (1500-7000); Neutrophils Percent Auto 54.5 % (50-75); Platelet Count 263 X10^3/uL (150-400); Red Cell Distribution Width 13.8 % (11.6-14.8); White Blood Cell Count 5.9 X10^3/uL (4.5-11.0)
[2019-03-20 13:28] LABS: Alanine Aminotransferase 18 IU/L (21-72); Albumin 4.2 g/dL (3.5-5.0); Albumin Globulin Ratio 1.4 (1.0-2.8); Alkaline Phosphatase 75 U/L (38-126); Aspartate Aminotransferase 22 IU/L (17-59); Bilirubin Total 0.6 mg/dL (0.2-1.3); Blood Urea Nitrogen 18 mg/dL (9-20); Calcium 9.4 mg/dL (8.4-10.2); Carbon Dioxide 27 mmol/L (22-32); Chloride 101 mmol/L (98-107); Estimated Glomerular Filt Rate 57.7 mL/min (>60); Globulin 2.9 g/dL (1.7-4.1); Glucose 137 mg/dL (80-110); HEMOLYSIS < 15 (0-50); Potassium 4.8 mmol/L (3.4-5.1); Sodium 140 mmol/L (137-145); Total Protein 7.1 g/dL (6.3-8.2)
[2019-03-20 13:56] LABS: TSH w/ Reflex to FT4 3.56 uIU/mL (0.47-4.68)
== END ==
PROVIDERS: PCP Family Medicine; Visit Provider Physician Assistant
DX: I10 Essential (primary) hypertension (principal); R42 Dizziness and giddiness; I48.0 Paroxysmal atrial fibrillation; E03.8 Other specified hypothyroidism
CPT/HCPCS: 36415; 80053; 84443; 85025

== ENCOUNTER → 2019-04-26 07:39 | Outpatient (CLI) | payer MEDICARE, OTHER, SELFPAY ==
[2018-06-29 03:40] VITALS: BMI 27.6
--- NOTE | 2019-04-26 | DI.RAD.S_ITS ---
PROCEDURE: FL UPPER GI W AIR INDICATIONS: VOMITING COMPARISON: None. FINDINGS: Limited examination given difficulties with patient mobility and inability to tolerate a recumbent position KUB: Preprocedural senior associate film demonstrates a normal bowel gas pattern. No suspicious abdominal calcifications. Visualized solid organ contours appear normal. Bony structures appear unremarkable. Nonspecific soft tissue calcifications and cervical spinal fixation hardware Esophagus: Diffuse esophageal mucosal irregularity, potentially related to reflux. On single-contrast views, there is decreased esophageal peristalsis. No strictures, extrinsic mass effects, or diverticula. No hiatal hernia. There was roger spontaneous severe gastroesophageal reflux to at least level of the middle third of the esophagus. Stomach: The stomach is normally distensible, with normal rugal fold thickness. No mucosal masses or ulcers. Pylorus and duodenal bulb appear normal in morphology. Duodenal folds are normal in thickness as well. IMPRESSION: Esophageal dysmotility Severe spontaneous gastroesophageal reflux Dictated by: Zbigniew Duong M.D. on 04/26/2019 at 8:51 Approved by: Zbigniew Duong M.D. on 04/26/2019 at 8:55
== END ==
PROVIDERS: PCP Family Medicine; Visit Provider Physician Assistant
DX: K22.4 Dyskinesia of esophagus (principal); K21.9 Gastro-esophageal reflux disease without esophagitis; R11.10 Vomiting, unspecified
CPT/HCPCS: 74247

== ENCOUNTER → 2019-08-28 08:33 | Outpatient (CLI) | payer MEDICARE, OTHER, SELFPAY ==
[2018-06-29 03:40] VITALS: BMI 27.6
--- NOTE | 2019-08-28 | DI.NM.S_ITS ---
PROCEDURE: NM GASTRIC EMPTYING STUDY RADIOPHARMACEUTICAL: 1.0 mCi Tc-99m sulfur colloid in an egg sandwich. INDICATIONS: Vomiting, unspecified TECHNIQUE: A Tc-99m labeled sulfur colloid labeled egg sandwich or oatmeal was served to the patient. Anterior and posterior planar images of the abdomen were obtained at 0 minutes and 30 minutes, then at hourly intervals up to 4 hours. The patient was upright and ambulating during the interval. COMPARISON: None. FINDINGS: The stomach has normal size, morphology, and position. There is normal emptying of solid gastric contents from the stomach by visual inspection. No gastroesophageal reflux is visualized. The percentage of tracer retained at specific time points are as follows: Time point Percent gastric retention Normal range 30 minutes 85% 70% or more 1 hour 79% 30% to 90% 2 hours 61% 60% or less 3 hours 31% 30% or less 4 hours 3% 10% or less IMPRESSION: Overall, grossly normal examination as above Dictated by: Zbigniew Duong M.D. on 08/28/2019 at 15:05 Approved by: Zbigniew Duong M.D. on 08/28/2019 at 15:18
== END ==
PROVIDERS: PCP Family Medicine; Visit Provider Physician Assistant
DX: R11.10 Vomiting, unspecified (principal)
CPT/HCPCS: 78264; A9541

== ENCOUNTER → 2019-09-30 08:03 | Outpatient (CLI) | payer MEDICARE, OTHER, SELFPAY ==
[2018-06-29 03:40] VITALS: BMI 27.6
[2019-09-30 08:30] LABS: Estimated Glomerular Filt Rate 52.6 mL/min (>60)
--- NOTE | 2019-09-30 08:47 | DI.CT.S_ITS ---
PROCEDURE: CT ABDOMEN PELVIS W CON INDICATIONS: Gastroparesis, vomiting TECHNIQUE: After the administration of oral and intravenous contrast, 5 mm thick sections acquired from the diaphragms to the symphysis. 5 mm thick coronal and sagittal reformats were performed. For radiation dose reduction, the following was used: automated exposure control, adjustment of mA and/or kV according to patient size. COMPARISON: [facility], CT, IVP (ABD & PEL WWO CONTRAST), 11/11/2013, 8:07. [facility], CT, THORAX WITH CONTRAST, 01/13/2016, 11:42. [facility], CT, IVP (ABD & PEL WWO CONTRAST), 02/23/2016, 11:10. [facility], CT, ABDOMEN/PELVIS WITH CONTRAST, 06/12/2014, 6:22. FINDINGS: Image quality: There is metallic streak artifact associated with patient's surgical hardware. ABDOMEN: Lung bases: There is linear scarring redemonstrated in the left lower lobe. A small ground glass nodule within the left lingula measuring up to 6 mm appears stable compared to the prior studies dating back to 2015. There is a calcified nodule within the left lower lobe measuring up to 5 mm which also appears unchanged and is compatible with a calcified granuloma. Heart size is normal. There is a small hiatal hernia. Solid organs: There is a lobulated cyst redemonstrated within the right hepatic lobe measuring up to 2.6 cm. The gallbladder is surgically absent. Biliary system is non-dilated. Pancreas enhances normally. Spleen is normal in size and enhancement. No adrenal nodules. Kidneys are normal in size and enhancement, without hydronephrosis. Peritoneum and bowel: Stomach and small bowel loops are normal in caliber and wall thickness. The majority of the colon is nondistended. There is suggestion of mild colonic wall thickening although this may reflect artifact from nondistention. Mild prominence of the pericolonic vessels noted. No free fluid or air. Nodes and vessels: No retroperitoneal or mesenteric adenopathy. Aorta and inferior vena cava are normal in caliber. Miscellaneous: No ventral hernias. PELVIS: Genitourinary: Bladder wall thickness is normal. Miscellaneous: There is small fat-containing bilateral inguinal hernias. No inguinal adenopathy. Bones: No suspicious bony lesions. There are post surgical changes redemonstrated within the lower lumbar spine at L4-S1 status post posterior fixation. No acute vertebral body compression fractures. IMPRESSION: 1. Suggestion of mild colonic wall thickening which may reflect a mild infectious or inflammatory colitis but evaluation is limited by nondistention of the colon. Recommend correlation with clinical symptoms. Dictated by: Jamshid Stubbs M.D. on 09/30/2019 at 10:16 Approved by: Jamshid Stubbs M.D. on 09/30/2019 at 10:27
== END ==
PROVIDERS: PCP Family Medicine; Visit Provider Physician Assistant
DX: K31.84 Gastroparesis (principal); R11.10 Vomiting, unspecified; R91.8 Other nonspecific abnormal finding of lung field; K44.9 Diaphragmatic hernia without obstruction or gangrene; K76.89 Other specified diseases of liver; Z90.49 Acquired absence of other specified parts of digestive tract
CPT/HCPCS: 36415; 74177; 82565; Q9967

== ENCOUNTER → 2019-11-12 09:07 | Outpatient (CLI) | payer MEDICARE, OTHER, SELFPAY ==
[2018-06-29 03:40] VITALS: BMI 27.6
--- NOTE | 2019-11-12 09:12 | DI.ECHO.S_ITS ---
[facility]---------+ [facility] +---------+ : : [address] [place] : : : : [id number] : : : : Phone: [phone] Echocardiogram Report + + :Name: KENNETH PEREZ Study Date: 11/12/2019 Height: 69 in : :[facility] Weight: 187 lb : : Gender: Male BSA: 2.0 m2 : :: 1935 Age: 84 yrs BP: 138/76 mmHg: :Reason For Study: CAD : :Ordering Physician: Anai : :Chandler Garrett Performed By: Madelaine Ray : :Referring: ANAI ARTEAGA : + + Interpretation Summary The left ventricle is normal in size. The ejection fraction is estimated to be 55-60%. There has been no significant change since the previous study. There is a mild dyssynchronous contraction pattern due to the paced rhythm. Diastolic parameters suggest a relaxation abnormality of the left ventricle, consistent with probable normal filling pressures. The right ventricle is normal size. There is a pacemaker lead in the right ventricle. Right ventricular systolic function is at the lower limits of normal. The right ventricular systolic pressure is estimated to be at least 29 mmHg based on an estimated right atrial pressure of 3 mm Hg. Both atria are normal in size. There is mild aortic regurgitation. There is mild to moderate pulmonic regurgitation. There is no other significant valvular heart disease. The aortic root is mildly dilated. The ascending aorta is mildly enlarged. Procedure: A two-dimensional transthoracic echocardiogram with color flow and Doppler was performed. The study quality was technically adequate. Comparison is made with the echocardiogram of 07/10/2018. The patient was in normal sinus rhythm during the exam. Left Ventricle: The left ventricle is normal in size. Left ventricular wall thickness is mild-moderately increased. The ejection fraction is estimated to be 55-60%. There has been no significant change since the previous study. There is a mild dyssynchronous contraction pattern due to the paced rhythm. Diastolic parameters suggest a relaxation abnormality of the left ventricle, consistent with probable normal filling pressures. Right Ventricle: The right ventricle is normal size. There is a pacemaker lead in the right ventricle. Right ventricular systolic function is at the lower limits of normal. Atria: Both atria are normal in size. There is no Doppler evidence for an interatrial shunt. Mitral Valve: There is a flat closure plane of the the mitral valve leaflets. The mitral valve leaflets appear mildly thickened, but open well. The mitral valve leaflets appear to open well. There is no mitral regurgitation noted. Aortic Valve: The aortic valve is trileaflet. The aortic valve opens well. There is mild aortic regurgitation. Tricuspid Valve: The tricuspid valve is normal in structure and function. The right ventricular systolic pressure is estimated to be at least 29 mmHg based on an estimated right atrial pressure of 3 mm Hg. There is mild tricuspid regurgitation. Pulmonic Valve: The pulmonic valve is not well seen, but is grossly normal. There is mild to moderate pulmonic regurgitation. There is no other significant valvular heart disease. Great Vessels: The aortic root is mildly dilated. The ascending aorta is mildly enlarged. The IVC is of normal diameter and collapses greater than 50% with a sniff. This suggests a low right atrial pressure of 3 mm Hg. Pericardium/ Pleura There is no pericardial effusion. There is no pleural effusion. MMode/2D Measurements & Calculations LVIDd: 4.1 cm LVOT diam: 2.0 cm LVIDs: 2.8 cm Ao root diam: 4.0 cm FS: 32.3 % Aortic Jxn: 3.3 cm IVSd: 1.4 cm asc Aorta Diam: 4.1 cm LVPWd: 1.3 cm Ao Arch Diam (Prox Trans): 2.9 cm LV ortega. diameter/BSA (cm/m^2): 2.1 LV sys. diameter/BSA (cm/m^2): 1.4 LA A2 area: 20.3 cm2 RA long axis: 5.2 cm LA A4 area: 14.5 cm2 RA area: 16.1 cm2 LA length (vol): 5.2 cm RA vol: 42.8 ml LA vol: 48.2 ml RA : 21.3 ml/m2 LA vol index: 24.0 ml/m2 IVC diam: 0.59 cm RVD1 (basal): 3.2 cm TAPSE: 1.7 cm Doppler Measurements & Calculations Ao V2 max: 122.8 cm/sec LVOT Max Santiago: 94.6 cm/sec Ao V2 mean: 91.8 cm/sec LV V1 max P.6 mmHg Ao max P.0 mmHg LV V1 VTI: 17.9 cm Ao mean P.7 mmHg SHAKILA(I,D): 2.5 cm2 Ao V2 VTI: 22.5 cm SHAKILA(V,D): 2.4 cm2 sev ratio: 0.79 SHAKILA indexed to BSA (cm^2/m^2): 1.2 AI P1/2t: 1165 msec AI dec slope: 104.2 cm/sec2 MV E max santiago: 41.2 cm/sec TR max santiago: 255.5 cm/sec MV A max santiago: 74.4 cm/sec TR max P.2 mmHg MV E/A: 0.55 PA V2 max: 57.3 cm/sec Med Peak E' Santiago: 3.3 cm/sec PA V2 mean: 41.4 cm/sec E/E' med: 12.6 PA mean P.77 mmHg Lat Peak E' Santiago: 5.3 cm/sec PA pr(Accel): 47.9 mmHg E/E' lat: 7.8 PA Accel Time: 0.07 sec E/e' average: 10.2 MV dec time: 0.33 sec MV P1/2t: 96.4 msec MV P1/2t max santiago: 42.5 cm/sec SV(LVOT): 56.1 ml MVA(P1/2t): 2.3 cm2 Reading Physician:05:48 PM
== END ==
PROVIDERS: PCP Family Medicine; Referring Provider Internal Medicine Cardiovascular Disease; Visit Provider Internal Medicine Cardiovascular Disease
DX: I35.1 Nonrheumatic aortic (valve) insufficiency (principal); I37.1 Nonrheumatic pulmonary valve insufficiency; I77.810 Thoracic aortic ectasia; I25.10 Atherosclerotic heart disease of native coronary artery without angina pectoris; Z95.0 Presence of cardiac pacemaker
CPT/HCPCS: 93306

== ENCOUNTER → 2019-11-26 09:05 | Outpatient (CLI) | payer MEDICARE, OTHER, SELFPAY ==
[2018-06-29 03:40] VITALS: BMI 27.6
[2019-11-26 10:36] LABS: Alanine Aminotransferase 22 IU/L (<50); Albumin 4.2 g/dL (3.5-5.0); Albumin Globulin Ratio 1.6 (1.0-2.8); Alkaline Phosphatase 56 U/L (38-126); Aspartate Aminotransferase 25 IU/L (17-59); BUN Creatinine Ratio 17.2 (6-22); Bilirubin Total 0.6 mg/dL (0.2-1.3); Blood Urea Nitrogen 22 mg/dL (9-20); Calcium 9.8 mg/dL (8.4-10.2); Carbon Dioxide 27 mmol/L (22-32); Chloride 101 mmol/L (98-107); Cholesterol 118 mg/dL (140-199); Estimated Glomerular Filt Rate 53.5 mL/min (>60); Globulin 2.6 g/dL (1.7-4.1); Glucose 136 mg/dL (80-110); HDL Cholesterol 42 mg/dL (40-60); HEMOLYSIS < 15 (0-50); LDL Cholesterol Calculated 53 mg/dL (<100); Potassium 4.6 mmol/L (3.4-5.1); Sodium 139 mmol/L (137-145); Total Protein 6.8 g/dL (6.3-8.2); Triglycerides 117 mg/dL (35-150)
[2019-11-26 10:49] LABS: Free T4, Direct Thyroxine 1.59 ng/dL (0.78-2.19)
[2019-11-26 11:03] LABS: Thyroid Stimulating Hormone 3.05 uIU/mL (0.47-4.68)
== END ==
PROVIDERS: PCP Family Medicine; Referring Provider Internal Medicine Cardiovascular Disease; Visit Provider Internal Medicine Cardiovascular Disease
DX: I25.10 Atherosclerotic heart disease of native coronary artery without angina pectoris (principal); I48.0 Paroxysmal atrial fibrillation
CPT/HCPCS: 36415; 80053; 80061; 84439; 84443

== ENCOUNTER 2020-01-25 16:29 | Emergency (ER) | payer MEDICARE, OTHER, SELFPAY ==
[2018-06-29 03:40] VITALS: BMI 27.6
[2020-01-25] VITALS (7 sets, daily range): BP systolic 92–138; BP diastolic 52–80; PULSE 68–71; RESP 12–19; TEMP 36.3; O2SAT 97–99; BMI 25.8
--- NOTE | 2020-01-25 16:52 | DI.CT.S_ITS ---
PROCEDURE: CT CERVICAL SPINE WO CON INDICATIONS: GLF, neck pain TECHNIQUE: Noncontrast 3 mm thick sections acquired from the skull base to the T4 level. Sagittal and coronal reformats were then constructed. For radiation dose reduction, the following was used: automated exposure control, adjustment of mA and/or kV according to patient size. COMPARISON: [facility], CR, XR HIP W PEL IF DONE RT 2V, 01/25/2020, 16:57. [facility], CT, CT HEAD/BRAIN WO CON, 01/25/2020, 16:52. [facility], CT, CT CERVICAL SPINE WO CON, 03/13/2018, 10:57. FINDINGS: Image quality: Excellent. Bones: No fractures or dislocations. Visualized superior ribs are intact. Postoperative changes are seen, with anterior fixation hardware C5-C7. The fusion plate appears well seated. Disc spacers are seen. No findings of hardware failure or hardware loosening are seen. Degenerative changes are seen, with moderate disc space narrowing at C3-C4 and mild disc space narrowing at C2-C3 and C4-C5. At least moderate disc space narrowing can be seen at C7-T1. Bridging anterior osteophytes are seen at C2-C3, C3-C4, C4-C5, C7-T1, and T1-T2. Soft tissues: Prevertebral soft tissues are normal in thickness. No paravertebral hematomas. No apical pneumothoraces. Pacer leads are seen. Dense atherosclerotic calcification can be seen involving the carotid bifurcations, left worse than right. IMPRESSION: No acute fractures are detected. Postoperative and degenerative changes are seen. Dictated by: Good Peña M.D. on 01/25/2020 at 16:25 Approved by: Good Peña M.D. on 01/25/2020 at 16:27
--- NOTE | 2020-01-25 16:52 | DI.RAD.S_ITS ---
PROCEDURE: XR HIP W PEL IF DONE RT 2V INDICATIONS: GLF, neck pain TECHNIQUE: AP pelvis with lateral view(s) of the right hip(s). COMPARISON: [facility], CT, CT HEAD/BRAIN WO CON, 01/25/2020, 16:52. [facility], CT, CT CERVICAL SPINE WO CON, 01/25/2020, 16:52. [facility], CT, CT ABDOMEN PELVIS W CON, 09/30/2019, 9:10. FINDINGS: Bones: No fractures or dislocations. Pelvic ring appears intact. No suspicious bony lesions. Lumbosacral fixation hardware is seen. There is moderate superior joint space narrowing seen of both hips, with associated remodeling changes with subchondral sclerosis and osteophyte formation. Soft tissues: The visualized bowel gas pattern is normal. No suspicious soft tissue calcifications. IMPRESSION: No displaced fractures are seen on these plain films. If there is focal tenderness, or other clinical concern for a fracture not seen on these images in this patient with a given history of trauma, please consider a dedicated CT or a short-term followup plain film series (in 1-2 weeks) for further evaluation. Moderate degenerative changes are seen of both hips. Lumbosacral fixation hardware is seen. Dictated by: Good Peña M.D. on 01/25/2020 at 16:28 Approved by: Good Peña M.D. on 01/25/2020 at 16:29
--- NOTE | 2020-01-25 16:52 | DI.CT.S_ITS ---
PROCEDURE: CT HEAD/BRAIN WO CON INDICATIONS: GLF, neck pain TECHNIQUE: Noncontrast 4.5 mm thick angled axial sections acquired from the foramen magnum to the vertex, with coronal and sagittal reformats. For radiation dose reduction, the following was used: automated exposure control, adjustment of mA and/or kV according to patient size. COMPARISON: [facility], CR, XR HIP W PEL IF DONE RT 2V, 01/25/2020, 16:57. [facility], CT, CT CERVICAL SPINE WO CON, 01/25/2020, 16:52. [facility], CT, CT HEAD/BRAIN WO CON, 12/14/2018, 15:26. [facility], CT, CT HEAD/BRAIN WO CON, 10/25/2018, 12:36. [facility], CT, CT ANGIO HEAD AND NECK, 10/25/2018, 11:30. [facility], CT, CT HEAD/BRAIN WO CON, 10/25/2018, 10:12. [facility], CT, CT ANGIO HEAD, 08/24/2018, 11:22. [facility], CT, CT HEAD/BRAIN WO CON, 01/22/2019, 14:01. FINDINGS: Image quality: Excellent. CSF spaces: Basal cisterns are patent. No extra-axial fluid collections. The ventricles are symmetric in size and shape. Brain: No intracranial bleeds or masses. There is cerebral volume loss for age, with resultant ventricular and sulcal prominence. There are periventricular and deep white matter chronic small vessel ischemic changes. There is intracranial internal carotid artery atherosclerosis. Skull and face: Calvarium and visualized facial bones appear intact, without suspicious lesions. Sinuses: Visualized sinuses and mastoids are clear. IMPRESSION: No acute intracranial process is seen. No acute intracranial hemorrhage is seen. Dictated by: Good Peña M.D. on 01/25/2020 at 16:24 Approved by: Good Peña M.D. on 01/25/2020 at 16:25
[2020-01-25 17:46] LABS: Prothrombin Time 12.1 SECONDS (10.1-12.7)
[2020-01-25 17:48] LABS: Add Manual Diff / Slide Review NO; Basophils Absolute Auto 0 /uL (0-100); Basophils Percent Auto 0.7 % (0-2); Eosinophils Absolute Auto 0 /uL (0-450); Eosinophils Percent Auto 0.6 % (2-4); Hematocrit 39.9 % (41-53); Hemoglobin 13.9 g/dL (13.5-17.5); Lymphocytes Absolute Auto 2000 /uL (1100-4500); Lymphocytes Percent Auto 30.4 % (25-40); Mean Corpuscular HGB Conc 34.8 % (30-36); Mean Corpuscular Hemoglobin 34.5 PG (26-34); Monocytes Absolute Auto 700 /uL (0-900); Monocytes Percent Auto 10.1 % (3-14); Neutrophils Absolute Auto 3800 /uL (1500-7000); Neutrophils Percent Auto 58.2 % (50-75); Platelet Count 208 X10^3/uL (150-400); Red Blood Cell Count 4.03 X10^6/uL (4.5-5.9); Red Cell Distribution Width 13.1 % (11.6-14.8); White Blood Cell Count 6.6 X10^3/uL (4.5-11.0)
[2020-01-25 17:49] LABS: Creatine Kinase 47 U/L (55-170)
[2020-01-25 17:51] LABS: Alanine Aminotransferase 18 IU/L (<50); Albumin 4.5 g/dL (3.5-5.0); Albumin Globulin Ratio 1.5 (1.0-2.8); Alkaline Phosphatase 61 U/L (38-126); Aspartate Aminotransferase 25 IU/L (17-59); Bilirubin Total 0.6 mg/dL (0.2-1.3); Blood Urea Nitrogen 23 mg/dL (9-20); Calcium 10.2 mg/dL (8.4-10.2); Carbon Dioxide 25 mmol/L (22-32); Chloride 100 mmol/L (98-107); Estimated Glomerular Filt Rate > 60.0 mL/min (>60); Globulin 3.1 g/dL (1.7-4.1); Glucose 104 mg/dL (80-110); HEMOLYSIS < 15 (0-50); Potassium 4.5 mmol/L (3.4-5.1); Sodium 139 mmol/L (137-145); Total Protein 7.6 g/dL (6.3-8.2)
[2020-01-25 18:02] LABS: NT-proBNP (BNP-Adult 18+) 156 pg/mL (<450); Troponin I < 0.012 ng/mL (0.01-0.034)
--- NOTE | 2020-01-25 18:42 | ED.GENADULT ---
HPI - General Adult General Chief complaint: Dizziness Stated complaint: GLF, hit back of his head Time Seen by Provider: 01/25/20 18:06 Source: patient Mode of arrival: Ambulatory Limitations: no limitations History of Present Illness HPI narrative: Patient is an 84-year-old male. I have seen the patient several times in the past for other issues to include his stroke that he had about 1 year ago. Patient states that today he was walking outside and got lightheaded. He did fall over. He did hit his head. Cervical collar was placed in triage. Labs and CT scans and x-rays were ordered prior to my evaluation. Modified trauma called secondary to patient being on apixaban and falling. Patient states that since his stroke he has had some issues with balance. He does feel like the balance issues have been worsening over the past several weeks. He states that most the time it occurs when he stands up. He states that he becomes lightheaded has fallen over in the past. He does use a walker at home. He states that this is what happened to him today although he did admit that he did not stand up just prior to the event happening but otherwise how he felt was just like his prior lightheadedness and falls. He states beforehand he did not have any chest pain or palpitations. No ringing in his ears. He did not lose consciousness. Related Data Home Medications Medication Instructions Recorded Confirmed tamsulosin [Flomax] 0.4 mg PO BEDTIME #0 09/07/17 03/05/19 Lantus Solostar U-100 Insulin 10 unit SUB-Q BEDTIME 03/28/18 03/05/19 duloxetine [Cymbalta] 30 mg PO BEDTIME 03/28/18 03/05/19 levothyroxine 75 mcg PO DAILY 08/27/18 03/05/19 metformin mg PO BID 08/27/18 03/05/19 amiodarone 200 mg tablet 200 mg PO BID tab 12/24/18 03/05/19 apixaban 5 mg tablet 5 mg PO BID 12/24/18 03/05/19 aspirin 81 mg tablet,delayed 81 mg PO DAILY 12/24/18 03/05/19 release atorvastatin 80 mg tablet 40 mg PO DAILY tab 12/24/18 03/05/19 escitalopram oxalate 10 mg PO DAILY 01/22/19 03/05/19 magnesium chloride [Mag 64] 64 mg PO DAILY 01/22/19 03/05/19 metoprolol succinate 75 mg PO DAILY 01/22/19 03/05/19 pravastatin 5 mg PO DAILY 01/22/19 03/05/19 Previous Rx's Medication Instructions Recorded nitroglycerin 0.4 mg SL Q5-15M PRN #30 tab 06/29/18 meclizine 25 mg PO BID-TID PRN #14 tab 01/22/19 Allergies Allergy/AdvReac Type Severity Reaction Status Date / Time Iqhxssl-Dpz-Rla Reductase Allergy Intermediate MUSCLE PAIN Verified 03/05/19 14:46 Inhibitor [JVCLVCA-FPE-UPE REDUCTASE INHIBITOR] piroxicam [PIROXICAM] Allergy Mild NAUSEA, Verified 03/05/19 14:46 VOMITING dabigatran etexilate AdvReac Hematuria Verified 03/05/19 14:46 Review of Systems Constitutional Constitutional: Denies fever(s), Reports frequent falls, Denies headache(s) and Denies weakness Eyes Eyes: Denies change in vision and Denies diplopia ENT Ears, Nose, Mouth, and Throat: Denies vertigo, Reports dizziness, Denies headache(s), Reports disequilibrium and Denies sore throat Cardiovascular Cardiovascular: Denies chest pain, Denies syncope and Denies dyspnea Respiratory Respiratory: Denies cough and Denies dyspnea Gastrointestinal Gastrointestinal: Denies abdominal pain, Denies nausea and Denies vomiting Musculoskeletal Musculoskeletal: Reports abnormal gait Comments: Hip pain Integumentary/Breasts Skin/Breast: Denies lesions and Denies rash Neurologic Neurologic: Reports abnormal gait, Denies behavioral changes, Denies vertigo, Reports dizziness, Denies syncope, Reports frequent falls, Denies headache(s), Reports disequilibrium and Denies weakness Psychiatric Psychiatric: Denies behavioral changes Hematologic/Lymphatic Hematologic/Lymphatic: Denies easy bleeding and Denies easy bruising Patient History Medical History Anxiety (Chronic) CAD (coronary artery disease) (Chronic) DDD (degenerative disc disease), cervical (Chronic) Depression (Chronic) Diabetes (Resolved) Dyslipidemia (Chronic) Dysuria (Chronic) Elevated serum homocysteine level (Chronic) History of angina (Chronic) History of CVA (cerebrovascular accident) (Resolved) History of dizziness (Resolved) History of esophageal reflux (Resolved) History of fatigue (Resolved) History of hematuria (Resolved) Impotence (Chronic) Lumbosacral radiculopathy at L5 (Chronic) Memory deficit (Chronic) Neuropathy of both feet (Chronic) Osteoarthritis (Chronic) Pacemaker (Chronic ~2013) Paroxysmal A-fib (Chronic) 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) RBBB (Chronic) Renal insufficiency (Chronic) Sick sinus syndrome (Chronic) Sleep apnea (Chronic ~2012) Spinal stenosis in cervical region (Chronic) Spinal stenosis of lumbar region (Chronic) TIA (transient ischemic attack) (Acute) Urinary retention (Chronic) Surgical History H/O laminectomy (Resolved) H/O shoulder surgery (Resolved) H/O thumb surgery (Resolved) History of appendectomy (Resolved) History of bladder surgery (Resolved) History of cardiac cath (Resolved ~2012) History of cholecystectomy (Resolved ~2012) History of cystoscopy (Resolved) History of lumbar fusion (Resolved) History of tonsillectomy (Resolved) History of vasectomy (Resolved) Status post right foot surgery (Resolved) Social History marital status: details: to Siri, lives in [place] household members: spouse lives independently: Yes caregiver/support person: No housing: house Smoking Status: Never smoker alcohol intake: current substance use type: does not use Smoking Status: Never smoker alcohol intake frequency: holidays/special occasions only Substance Use Type: does not use Exam Initial Vital Signs Initial Vital Signs: Vital Signs Temperature 97.4 F L 01/25/20 16:41 Pulse Rate 71 01/25/20 16:41 Respiratory Rate 16 01/25/20 16:41 Blood Pressure 124/75 01/25/20 16:41 Pulse Oximetry 97 01/25/20 16:41 Const General: cooperative, healthy appearing, comfortable and well developed Limitations: mental status not altered HENMT Head: normal to inspection and normocephalic Resp Effort & Inspection: normal respiratory effort Cardio Rate: regular rate Skin Lesions: no lesions Rashes: no rashes Neuro General: alert, awake and oriented x3 Cognition: normal cognition Speech: speech normal Motor: muscle tone normal throughout Sensory Exam: no sensory deficits noted Extrem General: normal to inspection and capillary refill normal Psych Appearance: grossly normal and well kempt Scores GCS Katarzyna coma scale eye opening: Spontaneous Katarzyna coma scale verbal response: Orientated Katarzyna coma scale motor response: Obey commands Ray coma scale total score: 15 Course Orders Ordered: ED Orders 01/25/20 16:52 CT cervical spine wo con Stat CT head/brain wo con Stat XR hip w pel if done RT 2V Stat 01/25/20 17:11 EKG-12 Lead Stat 01/25/20 17:29 BNP [NT-proBNP (BNP-Adult 18+)] Stat Complete Blood Count AUTO DIFF Stat Comprehensive Metabolic Panel Stat Prothrombin Time INR Stat Troponin & CK Cardiac Panel Stat 01/25/20 19:27 Urine Culture Stat Urine Microscopic Stat Vital Signs Vital signs: Vital Signs - 8 hr 01/25/20 18:00 01/25/20 18:30 01/25/20 19:00 Pulse Rate 68 69 69 Pulse Rate [Orthostatic Lying] Pulse Rate [Orthostatic Sitting] Pulse Rate [Orthostatic Standing] Respiratory Rate 15 19 12 Blood Pressure [Left Arm] 131/70 132/74 119/70 Blood Pressure [Orthostatic Lying] Blood Pressure [Orthostatic Sitting] Blood Pressure [Orthostatic Standing] Pulse Oximetry 99 01/25/20 19:20 01/25/20 20:05 Pulse Rate 70 Pulse Rate [Orthostatic Lying] 69 Pulse Rate [Orthostatic Sitting] 69 Pulse Rate [Orthostatic Standing] 71 Respiratory Rate 14 Blood Pressure [Left Arm] 108/70 Blood Pressure [Orthostatic Lying] 138/65 Blood Pressure [Orthostatic Sitting] 94/61 Blood Pressure [Orthostatic Standing] 92/52 L Pulse Oximetry 99 Medical Decision Making Medical Records Medical records reviewed: Yes I reviewed the patient's medical records. Lab Data Lab results reviewed: Yes I reviewed the patient's lab results. Result diagrams: 01/25/20 17:29 01/25/20 17:29 Labs: Lab Results 01/25/20 01/25/20 01/25/20 Range/Units 17:29 17:29 17:29 WBC 6.6 (4.5-11.0) X10^3/uL RBC 4.03 L (4.5-5.9) X10^6/uL Hgb 13.9 (13.5-17.5) g/dL Hct 39.9 L (41-53) % MCV 99.0 (80-100) fL MCH 34.5 H (26-34) PG MCHC 34.8 (30-36) % RDW 13.1 (11.6-14.8) % Plt Count 208 (150-400) X10^3/uL Neut % (Auto) 58.2 (50-75) % Lymph % (Auto) 30.4 (25-40) % Camp % (Auto) 10.1 (3-14) % Eos % (Auto) 0.6 L (2-4) % Baso % (Auto) 0.7 (0-2) % Neut # (Auto) 3800 (0287-2228) /uL Lymph # (Auto) 2000 (1680-7243) /uL Camp # (Auto) 700 (0-900) /uL Eos # (Auto) 0 (0-450) /uL Baso # (Auto) 0 (0-100) /uL PT 12.1 (10.1-12.7) SECONDS INR 1.0 (0.9-1.3) Sodium 139 (137-145) mmol/L Potassium 4.5 (3.4-5.1) mmol/L Chloride 100 (98-107) mmol/L Carbon Dioxide 25 (22-32) mmol/L BUN 23 H (9-20) mg/dL Creatinine 1.15 (0.66-1.25) mg/dL Estimated GFR > 60.0 (>60) mL/min BUN/Creatinine Ratio 20.0 (6-22) Glucose 104 (80-110) mg/dL Calcium 10.2 (8.4-10.2) mg/dL Total Bilirubin 0.6 (0.2-1.3) mg/dL AST 25 (17-59) IU/L ALT 18 (<50) IU/L Alkaline Phosphatase 61 (38-126) U/L Total Creatine Kinase (55-170) U/L CK-MB (CK-2) CK-MB (CK-2) Rel Index Troponin I (0.01-0.034) ng/mL NT-Pro-B Natriuret Pep (<450) pg/mL Total Protein 7.6 (6.3-8.2) g/dL Albumin 4.5 (3.5-5.0) g/dL Globulin 3.1 (1.7-4.1) g/dL Albumin/Globulin Ratio 1.5 (1.0-2.8) Urine RBC (0-5/HPF) Urine WBC (0-5/HPF) Ur Squamous Epith Cells (0-5/HPF) Calcium Oxalate Crystal Urine Bacteria (None) Urine Mucus (Negative) Ur Culture Indicated? 01/25/20 01/25/20 Range/Units 17:29 19:27 WBC (4.5-11.0) X10^3/uL RBC (4.5-5.9) X10^6/uL Hgb (13.5-17.5) g/dL Hct (41-53) % MCV (80-100) fL MCH (26-34) PG MCHC (30-36) % RDW (11.6-14.8) % Plt Count (150-400) X10^3/uL Neut % (Auto) (50-75) % Lymph % (Auto) (25-40) % Camp % (Auto) (3-14) % Eos % (Auto) (2-4) % Baso % (Auto) (0-2) % Neut # (Auto) (3704-5590) /uL Lymph # (Auto) (1544-8154) /uL Camp # (Auto) (0-900) /uL Eos # (Auto) (0-450) /uL Baso # (Auto) (0-100) /uL PT (10.1-12.7) SECONDS INR (0.9-1.3) Sodium (137-145) mmol/L Potassium (3.4-5.1) mmol/L Chloride (98-107) mmol/L Carbon Dioxide (22-32) mmol/L BUN (9-20) mg/dL Creatinine (0.66-1.25) mg/dL Estimated GFR (>60) mL/min BUN/Creatinine Ratio (6-22) Glucose (80-110) mg/dL Calcium (8.4-10.2) mg/dL Total Bilirubin (0.2-1.3) mg/dL AST (17-59) IU/L ALT (<50) IU/L Alkaline Phosphatase (38-126) U/L Total Creatine Kinase 47 L (55-170) U/L CK-MB (CK-2) TNP CK-MB (CK-2) Rel Index TNP Troponin I < 0.012 (0.01-0.034) ng/mL NT-Pro-B Natriuret Pep 156 (<450) pg/mL Total Protein (6.3-8.2) g/dL Albumin (3.5-5.0) g/dL Globulin (1.7-4.1) g/dL Albumin/Globulin Ratio (1.0-2.8) Urine RBC 0-1/hpf D (0-5/HPF) Urine WBC 1-5/hpf (0-5/HPF) Ur Squamous Epith Cells 0-1 /hpf (0-5/HPF) Calcium Oxalate Crystal Occasional H Urine Bacteria Few (2-10) H (None) Urine Mucus 2+ H (Negative) Ur Culture Indicated? Cult not indicated Urine Dip Bedside Urine Glucose Negative Bedside Urine Bilirubin + 1 Bedside Urine Ketone + 15 Urine Specific [place] 1.030 Bedside Urine Occult Blood - Negative Bedside Urine pH 5.5 Bedside Urine Protein +/- 15 Bedside Urine Urobilinogen - Negative Bedside Urine Nitrite - Negative Bedside Urine Leukocytes +/- 15 Esterase Point of care testing: Urine Dip Bedside Urine Glucose Negative Bedside Urine Bilirubin + 1 Bedside Urine Ketone + 15 Urine Specific [place] 1.030 Bedside Urine Occult Blood - Negative Bedside Urine pH 5.5 Bedside Urine Protein +/- 15 Bedside Urine Urobilinogen - Negative Bedside Urine Nitrite - Negative Bedside Urine Leukocytes +/- 15 Esterase Imaging Data Extremity x-ray #1: Radiologist's Impression: [address] [address] XRay Report Signed Patient: Sotero Kasper WMR#: [id number] : 5Acct:[id number] Age/Sex: 84 / MDate of Service: 01/25/20 Loc: ED Accession Number: [id number] Procedure: XR hip w pel if done RT 2V Ordering Provider: Rm Woodson MD PROCEDURE: XR HIP W PEL IF DONE RT 2V INDICATIONS: GLF, neck pain TECHNIQUE: AP pelvis with lateral view(s) of the right hip(s). COMPARISON: [facility], CT, CT HEAD/BRAIN WO CON, 01/25/2020, 16:52. [facility], CT, CT CERVICAL SPINE WO CON, 01/25/2020, 16:52. [facility], CT, CT ABDOMEN PELVIS W CON, 09/30/2019, 9:10. FINDINGS: Bones: No fractures or dislocations. Pelvic ring appears intact. No suspicious bony lesions. Lumbosacral fixation hardware is seen. There is moderate superior joint space narrowing seen of both hips, with associated remodeling changes with subchondral sclerosis and osteophyte formation. Soft tissues: The visualized bowel gas pattern is normal. No suspicious soft tissue calcifications. IMPRESSION: No displaced fractures are seen on these plain films. If there is focal tenderness, or other clinical concern for a fracture not seen on these images in this patient with a given history of trauma, please consider a dedicated CT or a short-term followup plain film series (in 1-2 weeks) for further evaluation. Moderate degenerative changes are seen of both hips. Lumbosacral fixation hardware is seen. Dictated by: Good Peña M.D. on 01/25/2020 at 16:28 Approved by: Good Peña M.D. on 01/25/2020 at 16:29 CT scan - head: Radiologist's Impression: [place] [address] CT Scan Report Signed Patient: Sotero Kasper WMR#: [id number] : 5Acct:[id number] Age/Sex: 84 / MDate of Service: 01/25/20 Loc: ED Accession Number: [id number] Procedure: CT head/brain wo con Ordering Provider: Rm Woodson MD PROCEDURE: CT HEAD/BRAIN WO CON INDICATIONS: GLF, neck pain TECHNIQUE: Noncontrast 4.5 mm thick angled axial sections acquired from the foramen magnum to the vertex, with coronal and sagittal reformats. For radiation dose reduction, the following was used: automated exposure control, adjustment of mA and/or kV according to patient size. COMPARISON: [facility], CR, XR HIP W PEL IF DONE RT 2V, 01/25/2020, 16:57. [facility], CT, CT CERVICAL SPINE WO CON, 01/25/2020, 16:52. [facility], CT, CT HEAD/BRAIN WO CON, 12/14/2018, 15:26. [facility], CT, CT HEAD/BRAIN WO CON, 10/25/2018, 12:36. [facility], CT, CT ANGIO HEAD AND NECK, 10/25/2018, 11:30. [facility], CT, CT HEAD/BRAIN WO CON, 10/25/2018, 10:12. [facility], CT, CT ANGIO HEAD, 08/24/2018, 11:22. [facility], CT, CT HEAD/BRAIN WO CON, 01/22/2019, 14:01. FINDINGS: Image quality: Excellent. CSF spaces: Basal cisterns are patent. No extra-axial fluid collections. The ventricles are symmetric in size and shape. Brain: No intracranial bleeds or masses. There is cerebral volume loss for age, with resultant ventricular and sulcal prominence. There are periventricular and deep white matter chronic small vessel ischemic changes. There is intracranial internal carotid artery atherosclerosis. Skull and face: Calvarium and visualized facial bones appear intact, without suspicious lesions. Sinuses: Visualized sinuses and mastoids are clear. IMPRESSION: No acute intracranial process is seen. No acute intracranial hemorrhage is seen. Dictated by: Good Peña M.D. on 01/25/2020 at 16:24 Approved by: Good Peña M.D. on 01/25/2020 at 16:25 CT - cervical spine: Radiologist's Impression: [place] [address] CT Scan Report Signed Patient: Sotero Kasper [facility]#: [id number] : 5Acct:[id number] Age/Sex: 84 / MDate of Service: 01/25/20 Loc: ED Accession Number: [id number] Procedure: CT cervical spine wo con Ordering Provider: Rm Woodson MD PROCEDURE: CT CERVICAL SPINE WO CON INDICATIONS: GLF, neck pain TECHNIQUE: Noncontrast 3 mm thick sections acquired from the skull base to the T4 level. Sagittal and coronal reformats were then constructed. For radiation dose reduction, the following was used: automated exposure control, adjustment of mA and/or kV according to patient size. COMPARISON: [facility], CR, XR HIP W PEL IF DONE RT 2V, 01/25/2020, 16:57. [facility], CT, CT HEAD/BRAIN WO CON, 01/25/2020, 16:52. [facility], CT, CT CERVICAL SPINE WO CON, 03/13/2018, 10:57. FINDINGS: Image quality: Excellent. Bones: No fractures or dislocations. Visualized superior ribs are intact. Postoperative changes are seen, with anterior fixation hardware C5-C7. The fusion plate appears well seated. Disc spacers are seen. No findings of hardware failure or hardware loosening are seen. Degenerative changes are seen, with moderate disc space narrowing at C3-C4 and mild disc space narrowing at C2-C3 and C4-C5. At least moderate disc space narrowing can be seen at C7-T1. Bridging anterior osteophytes are seen at C2-C3, C3-C4, C4-C5, C7-T1, and T1-T2. Soft tissues: Prevertebral soft tissues are normal in thickness. No paravertebral hematomas. No apical pneumothoraces. Pacer leads are seen. Dense atherosclerotic calcification can be seen involving the carotid bifurcations, left worse than right. IMPRESSION: No acute fractures are detected. Postoperative and degenerative changes are seen. Dictated by: Good Peña M.D. on 01/25/2020 at 16:25 Approved by: Good Peña M.D. on 01/25/2020 at 16:27 ECG Data Attestation: I personally reviewed and interpreted this ECG as follows: Prior ECG tracings: not available for review Interpretation: Atrially paced Ventricular rate is 70 Bifascicular block MDM Narrative Medical decision making narrative: Head CT and cervical spine CT unremarkable. Cervical collar was removed. His x-ray shows no signs of fracture. Patient was able to ambulate here in the ER with his walker. Had a long discussion with the patient and his regarding his symptoms. Did consider other issues to include arrhythmias, stroke, seizures however patient was adamant that what happened to him today was what has been happening to him over the past several days/weeks. They are moving into a independent living facility that is 1 floor because of these issues. The feel given his history and physical in specifically his history that we can hold on further workup. I do not feel the patient needs admitted to the hospital. I did discuss return precautions and follow-up instructions. He expressed understanding and agreement. Discharge Plan Departure Patient Disposition: Home Clinical Impression: Dizziness Discharge Date/Time: 01/25/20 20:07 Instructions: How to Prevent Falls, DI for Dizziness-Nonvertigo Activity Restrictions/Additional Instructions: Continue all of your medications as directed. Issue you contact your primary provider for follow-up. Return to the emergency department for any new or worsening symptoms Prescriptions: No Action tamsulosin [Flomax] 0.4 MG capsule,extended release 24hr 0.4 mg PO BEDTIME Qty: 0 RF: 0 nitroglycerin 0.4 mg tablet, sublingual 0.4 mg SL Q5-15M PRN (Reason: chest pain) Qty: 30 RF: 2 metoprolol succinate 50 mg tablet extended release 24 hr 75 mg PO DAILY RF: 0 pravastatin 10 mg tablet 5 mg PO DAILY RF: 0 escitalopram oxalate 10 mg tablet 10 mg PO DAILY RF: 0 magnesium chloride [Mag 64] 64 mg tablet,delayed release (DR/EC) 64 mg PO DAILY RF: 0 meclizine 25 mg tablet 25 mg PO BID-TID PRN (Reason: motion sickness) Qty: 14 RF: 0 Lantus Solostar U-100 Insulin 100 unit/mL (3 mL) Insulin Pen 10 unit SUB-Q BEDTIME RF: 0 duloxetine [Cymbalta] 30 MG capsule,delayed release(DR/EC) 30 mg PO BEDTIME RF: 0 levothyroxine 75 mcg tablet 75 mcg PO DAILY RF: 0 metformin 1,000 mg tablet PO BID RF: 0 apixaban 5 mg tablet 5 mg PO BID RF: 0 atorvastatin 80 mg tablet 40 mg PO DAILY RF: 0 amiodarone 200 mg tablet 200 mg PO BID RF: 0 aspirin [Adult Low Dose Aspirin] 81 mg tablet,delayed release (DR/EC) 81 mg PO DAILY RF: 0 Referrals: Jose De Jesus Smith MD [Primary Care Provider] -
[2020-01-25 20:00] LABS: RBC Urine 0-1/HPF (0-5/HPF); Squamous Epithelial Cell Urine 0-1 /HPF (0-5/HPF); WBC Urine 1-5/HPF (0-5/HPF)
[2020-01-25 20:01] LABS: Bacteria Urine Few (2-10); Calcium Oxalate Crystals Urine Occasional; Culture Indicated Urine Cult Not Indicated; Mucus Urine 2+ (Negative)
== END 2020-01-25 20:07 | disposition home or self-care (01) ==
PROVIDERS: Emergency Medicine; Emergency Provider Emergency Medicine; PCP Family Medicine
DX: R42 Dizziness and giddiness (principal); M54.2 Cervicalgia; S09.90XA Unspecified injury of head, initial encounter; M25.551 Pain in right hip; Z86.73 Personal history of transient ischemic attack (TIA), and cerebral infarction without residual deficits; W19.XXXA Unspecified fall, initial encounter
CPT/HCPCS: 36415; 70450; 72125; 73502; 80053; 81003; 81015; 82550; 83880; 84484; 85025; 85610; 87086; 93005; 99284

== ENCOUNTER 2020-04-13 15:49 | Emergency (ER) | payer MEDICARE, OTHER, SELFPAY ==
[2018-06-29 03:40] VITALS: BMI 27.6
[2020-04-13] VITALS (10 sets, daily range): BP systolic 127–155; BP diastolic 60–74; PULSE 68–70; RESP 16–30; TEMP 36.9; O2SAT 96–100
--- NOTE | 2020-04-13 15:52 | ED_ITS ---
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 He states that he was in his backyard when he suddenly fell backwards hitting his head. He states that this happens frequently. They have not come in last 2 weeks when it has been happen. He denies any chest pain heart palpitations numbness tingling weakness loss of consciousness nausea or vomiting. He does have small abrasion on the top of his head where he hit. He has no neck pain. Related Data Home Medications Medication Instructions Recorded Confirmed tamsulosin [Flomax] 0.4 mg PO BEDTIME #0 09/07/17 03/05/19 Lantus Solostar U-100 Insulin 10 unit SUB-Q BEDTIME 03/28/18 03/05/19 duloxetine [Cymbalta] 30 mg PO BEDTIME 03/28/18 03/05/19 levothyroxine 75 mcg PO DAILY 08/27/18 03/05/19 metformin mg PO BID 08/27/18 03/05/19 amiodarone 200 mg tablet 200 mg PO BID tab 12/24/18 03/05/19 apixaban 5 mg tablet 5 mg PO BID 12/24/18 03/05/19 aspirin 81 mg tablet,delayed 81 mg PO DAILY 12/24/18 03/05/19 release atorvastatin 80 mg tablet 40 mg PO DAILY tab 12/24/18 03/05/19 escitalopram oxalate 10 mg PO DAILY 01/22/19 03/05/19 magnesium chloride [Mag 64] 64 mg PO DAILY 01/22/19 03/05/19 metoprolol succinate 75 mg PO DAILY 01/22/19 03/05/19 pravastatin 5 mg PO DAILY 01/22/19 03/05/19 Previous Rx's Medication Instructions Recorded nitroglycerin 0.4 mg SL Q5-15M PRN #30 tab 06/29/18 meclizine 25 mg PO BID-TID PRN #14 tab 01/22/19 Allergies Allergy/AdvReac Type Severity Reaction Status Date / Time Faexrhp-Qpu-Xwu Reductase Allergy Intermediate MUSCLE PAIN Verified 03/05/19 14:46 Inhibitor [[id number] REDUCTASE INHIBITOR] piroxicam [PIROXICAM] Allergy Mild NAUSEA, Verified 03/05/19 14:46 VOMITING dabigatran etexilate AdvReac Hematuria Verified 03/05/19 14:46 Review of Systems Review of Systems ROS Unobtainable: All systems reviewed & are unremarkable except as noted in HPI and below Constitutional Constitutional: Denies chills, Denies fever(s), Reports frequent falls, Denies lethargy and Denies weakness Eyes Eyes: Denies change in vision, Denies eye discharge, Denies irritation and Denies loss of vision Cardiovascular Cardiovascular: Reports as per HPI, Reports syncope, Denies dyspnea and Denies dyspnea on exertion Respiratory Respiratory: Denies cough, Denies dyspnea, Denies dyspnea on exertion and Denies wheezing Gastrointestinal Gastrointestinal: Denies abdominal pain, Denies change in bowel habits, Denies diarrhea, Denies nausea and Denies vomiting Musculoskeletal Musculoskeletal: Denies abnormal gait, Denies back pain and Denies myalgias Integumentary/Breasts Skin/Breast: Denies pruritus, Denies erythema, Denies rash and Denies wounds Neurologic Neurologic: Reports as per HPI, Denies abnormal gait, Denies confusion, Reports syncope, Reports frequent falls, Denies loss of vision and Denies weakness Psychiatric Psychiatric: Denies confusion Allergic/Immunologic Allergic/Immunologic: Denies wheezing Patient History Medical History Anxiety (Chronic) CAD (coronary artery disease) (Chronic) DDD (degenerative disc disease), cervical (Chronic) Depression (Chronic) Diabetes (Resolved) Dyslipidemia (Chronic) Dysuria (Chronic) Elevated serum homocysteine level (Chronic) History of angina (Chronic) History of CVA (cerebrovascular accident) (Resolved) History of dizziness (Resolved) History of esophageal reflux (Resolved) History of fatigue (Resolved) History of hematuria (Resolved) Impotence (Chronic) Lumbosacral radiculopathy at L5 (Chronic) Memory deficit (Chronic) Neuropathy of both feet (Chronic) Osteoarthritis (Chronic) Pacemaker (Chronic ~2013) Paroxysmal A-fib (Chronic) 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) RBBB (Chronic) Renal insufficiency (Chronic) Sick sinus syndrome (Chronic) Sleep apnea (Chronic ~2013) Spinal stenosis in cervical region (Chronic) Spinal stenosis of lumbar region (Chronic) TIA (transient ischemic attack) (Acute) Urinary retention (Chronic) Surgical History H/O laminectomy (Resolved) H/O shoulder surgery (Resolved) H/O thumb surgery (Resolved) History of appendectomy (Resolved) History of bladder surgery (Resolved) History of cardiac cath (Resolved ~2012) History of cholecystectomy (Resolved ~2012) History of cystoscopy (Resolved) History of lumbar fusion (Resolved) History of tonsillectomy (Resolved) History of vasectomy (Resolved) Status post right foot surgery (Resolved) Social History marital status: details: aisha Horner, lives in [place] household members: spouse lives independently: Yes caregiver/support person: No housing: house Smoking Status: Never smoker alcohol intake: current substance use type: does not use Smoking Status: Never smoker alcohol intake frequency: holidays/special occasions only Substance Use Type: does not use Exam Initial Vital Signs Initial Vital Signs: Vital Signs Temperature 98.4 F 04/13/20 15:50 Pulse Rate 70 04/13/20 15:50 Respiratory Rate 16 04/13/20 15:50 Blood Pressure 128/63 04/13/20 15:50 Pulse Oximetry 100 04/13/20 15:50 GENERAL: Alert well-appearing elderly gentleman no acute distress HEENT: Head skin abrasion on top of head,EOMI, pupils reactive, face symmetric, moist mucous membranes NECK: No vertebral tenderness or step-off CARDIOVASCULAR: Regular rate and rhythm without murmurs, rubs or gallops. RESPIRATORY: Breath sounds equal bilaterally, no wheezes rales or rhonchi. ABDOMEN: Soft, nontender. Normoactive bowel sounds all 4 quadrants. No guarding or rebound. BACK: No vertebral tenderness EXTREMITIES: Normal range of motion, no clubbing or edema. Neurovascularly intact NEUROLOGICAL: Alert and oriented x4.Normal gait and speech. Cranial nerves II through XII grossly intact. Good ldulgz-[id number], good ubzi-qo-mvik, strength equal bilaterally, no dysarthria or aphasia, sensation in tact to soft touch bilaterally, no visual changes, no facial droop SKIN: Warm, dry, no laceration, no petechiae, no rashes or lesions. Scores NIH Stroke Scale Level of Conciousness: Alert, keenly responsive Ask month/age: Answers both questions correctly. Open/close eyes, close hand: Performs both tasks correctly Best gaze horizontal: Normal Visual hall: No visual loss Facial palsy: Normal symetrical movement Left arm drift: No drift for full 10 sec Right arm drift: No drift for full 10 sec Left leg drift: No drift for full 10 sec Right leg drift: No drift for full 10 sec Limb ataxia: Absent Sensory on face/arms/legs: Normal, no sensory loss Best language: No aphasia, normal Dysarthria: Normal Extinction or inattention: No abnormality Total NIH Stroke scale score: 0 Course Orders Ordered: Discontinued Medications Sodium Chloride (Normal Saline 0.9%) 1,000 mls @ 150 mls/hr IV CONT ALLA Last Admin: 04/13/20 17:15 Dose: Not Given Documented by: BTONER Vital Signs Vital signs: Vital Signs - 8 hr 04/13/20 15:50 04/13/20 16:47 04/13/20 17:00 Temperature 98.4 F Pulse Rate 70 68 68 Respiratory Rate 16 27 H 26 H Blood Pressure 128/63 128/60 128/64 Pulse Oximetry 100 96 98 04/13/20 17:30 04/13/20 18:00 04/13/20 18:30 Temperature Pulse Rate 69 69 69 Respiratory Rate 25 H 21 24 Blood Pressure 127/60 135/67 143/71 H Pulse Oximetry 97 97 97 MDM - Syncope Lab Data Attestation: I reviewed the patient's lab results. Result diagrams: 04/13/20 15:54 04/13/20 15:54 Labs: Lab Results 04/13/20 04/13/20 04/13/20 Range/Units 15:54 15:54 15:54 WBC 6.5 (4.5-11.0) X10^3/uL RBC 3.78 L (4.5-5.9) X10^6/uL Hgb 12.9 L (13.5-17.5) g/dL Hct 37.6 L (41-53) % MCV 99.3 (80-100) fL MCH 34.1 H (26-34) PG MCHC 34.4 (30-36) % RDW 13.4 (11.6-14.8) % Plt Count 215 (150-400) X10^3/uL Neut % (Auto) 54.3 (50-75) % Lymph % (Auto) 34.4 (25-40) % Beckham % (Auto) 9.5 (3-14) % Eos % (Auto) 0.9 L (2-4) % Baso % (Auto) 0.9 (0-2) % Neut # (Auto) 3500 (1991-7820) /uL Lymph # (Auto) 2200 (3767-9126) /uL Beckham # (Auto) 600 (0-900) /uL Eos # (Auto) 100 (0-450) /uL Baso # (Auto) 100 (0-100) /uL PT 12.6 (10.1-12.7) SECONDS INR 1.1 (0.9-1.3) Sodium 135 L (137-145) mmol/L Potassium 5.1 (3.4-5.1) mmol/L Chloride 102 (98-107) mmol/L Carbon Dioxide 22 (22-32) mmol/L BUN 26 H (9-20) mg/dL Creatinine 1.16 (0.66-1.25) mg/dL Estimated GFR 59.8 L (>60) mL/min BUN/Creatinine Ratio 22.4 H (6-22) Glucose 87 (80-110) mg/dL Calcium 9.3 (8.4-10.2) mg/dL Total Bilirubin 0.8 (0.2-1.3) mg/dL AST 30 (17-59) IU/L ALT 20 (<50) IU/L Alkaline Phosphatase 41 (38-126) U/L Total Creatine Kinase 55 (55-170) U/L CK-MB (CK-2) TNP CK-MB (CK-2) Rel Index TNP Troponin I < 0.012 (0.01-0.034) ng/mL Total Protein 6.5 (6.3-8.2) g/dL Albumin 3.9 (3.5-5.0) g/dL Globulin 2.6 (1.7-4.1) g/dL Albumin/Globulin Ratio 1.5 (1.0-2.8) Imaging Data CT scan - head: Radiologist's Impression: PROCEDURE: CT HEAD/BRAIN WO CON INDICATIONS: syncope on asa TECHNIQUE: Noncontrast 4.5 mm thick angled axial sections acquired from the foramen magnum to the vertex, with coronal and sagittal reformats. For radiation dose reduction, the following was used: automated exposure control, adjustment of mA and/or kV according to patient size. COMPARISON: [facility], CT, CT HEAD/BRAIN WO CON, 01/25/2020, 16:52. FINDINGS: Image quality: Excellent. CSF spaces: Basal cisterns are patent. No extra-axial fluid collections. The ventricles are symmetric in size and shape. Brain: No intracranial bleeds or masses. Old lacune infarct in left basal ganglia is again seen, unchanged from prior study. There is cerebral volume loss for age, with resultant ventricular and sulcal prominence. There are periventricular and deep white matter chronic small vessel ischemic changes. There is intracranial internal carotid artery atherosclerosis. Skull and face: Calvarium and visualized facial bones appear intact, without suspicious lesions. Sinuses: Visualized sinuses and mastoids are clear. IMPRESSION: 1. No CT evidence of acute intracranial pathology. 2. Diffuse atrophy and moderate white matter chronic small vessel ischemic changes. 3. Stable old lacunar infarct in left basal ganglia. Dictated by: Randall Lora M.D. on 04/13/2020 at 16:14 Chest x-ray: Radiologist's Impression: PROCEDURE: XR CHEST 1V INDICATIONS: syncope TECHNIQUE: One view of the chest was acquired. COMPARISON: [facility], CR, XR CHEST 1V, 06/29/2018, 1:15. FINDINGS: Surgical changes and devices: Fusion hardware in lower cervical spine is seen. Left chest wall pacemaker leads are in the region of right atrium and right ventr icle. Lungs and pleura: Lungs are clear. No pleural effusions or pneumothorax. Mediastinum: Mediastinal contours appear normal. Heart size is enlarged. Bones and chest wall: No suspicious bony lesions. Overlying soft tissues appear unremarkable. IMPRESSION: No acute cardiopulmonary pathology. Dictated by: Randall Lora M.D. on 04/13/2020 at 16:13 CT - cervical spine: Radiologist's Impression: PROCEDURE: CT CERVICAL SPINE WO CON INDICATIONS: syncope TECHNIQUE: Noncontrast 3 mm thick sections acquired from the skull base to the T4 level. Sagittal and coronal reformats were then constructed. For radiation dose reduction, the following was used: automated exposure control, adjustment of mA and/or kV according to patient size. COMPARISON: [facility], CT, CT CERVICAL SPINE WO CON, 01/25/2020, 16:52. FINDINGS: Image quality: Excellent. Bones: There is discectomy and anterior fusion at C5-C7. No fractures or dislocations. Degenerative disc disease is present, moderate at C3-C4 and mild at C2-C3 and C4-C5. Mild to moderate bilateral facet arthropathy scattered in cervical spine. Severe atlantoaxial joint degeneration. Visualized superior ribs are intact. Soft tissues: Prevertebral soft tissues are normal in thickness. No paravertebral hematomas. No apical pneumothoraces. Heterotopic soft tissue ossification posterior to the C4-C5 appears unchanged. Moderate carotid artery atherosclerosis bilaterally. IMPRESSION: 1. No fracture or dislocation. 2. Degenerative and postsurgical changes in cervical spine. 3. Carotid artery atherosclerosis bilaterally. Dictated by: Palmer Joy M.D. on 04/13/2020 at 16:12 Approved by: Palmer Joy M.D. on 04/13/2020 at 16:1 carotid dopler: Radiologist's Impression: PROCEDURE: US CAROTID DOPPLER BI INDICATIONS: SYNCOPE TECHNIQUE: Color and pulse Doppler interrogation was performed of both carotid systems, with image documentation and velocity measurements. COMPARISON: None. FINDINGS: Stenosis calculations are based on SRU (Society of Radiologists in Ultrasound) criteria. Right side: Brachial blood pressure: 150/71 mm Hg. Common carotid artery peak systolic velocity: 53 cm/sec. Internal carotid artery peak systolic velocity: 78 cm/sec. Internal carotid artery end diastolic velocity: 23 cm/sec. External carotid artery peak systolic velocity: 83 cm/sec. ICA/CCA peak systolic ratio: 1.5. Luciano scale imaging description: Calcified plaque Percent internal carotid artery stenosis: Less than 50%. Vertebral artery: Flow direction is antegrade. Left side: Brachial blood pressure: 138/69 mm Hg. Common carotid artery peak systolic velocity: 65 cm/sec. Internal carotid artery peak systolic velocity: 194 cm/sec. Internal carotid artery end diastolic velocity: 48 cm/sec. External carotid artery peak systolic velocity: 108 cm/sec. ICA/CCA peak systolic ratio: 3.0. Luciano scale imaging description: Calcified plaque Percent internal carotid artery stenosis: 50-69%. Vertebral artery: Flow direction is antegrade. IMPRESSION: 1. 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 2. Less than 50% stenosis of the origin of the right internal carotid artery. Dictated by: Diane Crawford MD, PhD on 04/13/2020 at 19:15 Approved by: Diane Crawford MD, PhD on 04/13/2020 at 19:16 ECG Data Attestation: I personally reviewed and interpreted this ECG as follows: Prior ECG tracings: available for review Interpretation: Paced rhythm rate [address] changes similar to previous EKG MDM Narrative Medical decision making narrative: The patient's pacemaker was interrogated he actually had a rate of atrial flutter 2-1 last evening around 10:00 p.m. but nothing today. At that time no explanation for patient's frequent syncopal episodes. Carotid Doppler shows stenosis on the left 50-69%. Have called and spoken with Dr. Smith who agrees to continue workup of syncope as outpatient, this happens to him frequently. It is listed that patient is taking Eliquis however patient and confirm he is only taking aspirin. Patient is not a candidate for anticoagulation due to his frequent syncopal episodes. Discharge Plan Departure Patient Disposition: Home Clinical Impression: Syncope Qualifiers: Syncope type: unspecified Qualified Code(s): R55 - Syncope and collapse Discharge Date/Time: 04/13/20 19:44 Activity Restrictions/Additional Instructions: *You have been diagnosed with syncope *What to do: Unclear what is causing her syncopal episodes. Your pacemaker was interrogated today and does not seem to be the cause. You do have some stenosis in your left carotid but less than 70%. Recommend he follow up with Dr. Smith for further testing *Continue to take medications as directed *Follow up with your primary care provider in 2-3 days *Return to ER if you should have recurrent syncopal episode, chest pain palpitations weakness or any new, worsening or concerning symptoms Prescriptions: No Action tamsulosin [Flomax] 0.4 MG capsule,extended release 24hr 0.4 mg PO BEDTIME Qty: 0 RF: 0 nitroglycerin 0.4 mg tablet, sublingual 0.4 mg SL Q5-15M PRN (Reason: chest pain) Qty: 30 RF: 2 metoprolol succinate 50 mg tablet extended release 24 hr 75 mg PO DAILY RF: 0 pravastatin 10 mg tablet 5 mg PO DAILY RF: 0 escitalopram oxalate 10 mg tablet 10 mg PO DAILY RF: 0 magnesium chloride [Mag 64] 64 mg tablet,delayed release (DR/EC) 64 mg PO DAILY RF: 0 meclizine 25 mg tablet 25 mg PO BID-TID PRN (Reason: motion sickness) Qty: 14 RF: 0 Lantus Solostar U-100 Insulin 100 unit/mL (3 mL) Insulin Pen 10 unit SUB-Q BEDTIME RF: 0 duloxetine [Cymbalta] 30 MG capsule,delayed release(DR/EC) 30 mg PO BEDTIME RF: 0 levothyroxine 75 mcg tablet 75 mcg PO DAILY RF: 0 metformin 1,000 mg tablet PO BID RF: 0 apixaban 5 mg tablet 5 mg PO BID RF: 0 atorvastatin 80 mg tablet 40 mg PO DAILY RF: 0 amiodarone 200 mg tablet 200 mg PO BID RF: 0 aspirin [Adult Low Dose Aspirin] 81 mg tablet,delayed release (DR/EC) 81 mg PO DAILY RF: 0 Referrals: Jose De Jesus Smith MD [Primary Care Provider] -
--- NOTE | 2020-04-13 15:55 | DI.RAD.S_ITS ---
PROCEDURE: XR CHEST 1V INDICATIONS: syncope TECHNIQUE: One view of the chest was acquired. COMPARISON: [facility], CR, XR CHEST 1V, 06/29/2018, 1:15. FINDINGS: Surgical changes and devices: Fusion hardware in lower cervical spine is seen. Left chest wall pacemaker leads are in the region of right atrium and right ventricle. Lungs and pleura: Lungs are clear. No pleural effusions or pneumothorax. Mediastinum: Mediastinal contours appear normal. Heart size is enlarged. Bones and chest wall: No suspicious bony lesions. Overlying soft tissues appear unremarkable. IMPRESSION: No acute cardiopulmonary pathology. Dictated by: Randall Lora M.D. on 04/13/2020 at 16:13 Approved by: Randall Lora M.D. on 04/13/2020 at 16:13
--- NOTE | 2020-04-13 15:55 | DI.CT.S_ITS ---
PROCEDURE: CT HEAD/BRAIN WO CON INDICATIONS: syncope on asa TECHNIQUE: Noncontrast 4.5 mm thick angled axial sections acquired from the foramen magnum to the vertex, with coronal and sagittal reformats. For radiation dose reduction, the following was used: automated exposure control, adjustment of mA and/or kV according to patient size. COMPARISON: [facility], CT, CT HEAD/BRAIN WO CON, 01/25/2020, 16:52. FINDINGS: Image quality: Excellent. CSF spaces: Basal cisterns are patent. No extra-axial fluid collections. The ventricles are symmetric in size and shape. Brain: No intracranial bleeds or masses. Old lacune infarct in left basal ganglia is again seen, unchanged from prior study. There is cerebral volume loss for age, with resultant ventricular and sulcal prominence. There are periventricular and deep white matter chronic small vessel ischemic changes. There is intracranial internal carotid artery atherosclerosis. Skull and face: Calvarium and visualized facial bones appear intact, without suspicious lesions. Sinuses: Visualized sinuses and mastoids are clear. IMPRESSION: 1. No CT evidence of acute intracranial pathology. 2. Diffuse atrophy and moderate white matter chronic small vessel ischemic changes. 3. Stable old lacunar infarct in left basal ganglia. Dictated by: Randall Lora M.D. on 04/13/2020 at 16:14 Approved by: Randall Lora M.D. on 04/13/2020 at 16:15
--- NOTE | 2020-04-13 15:55 | DI.CT.S_ITS ---
PROCEDURE: CT CERVICAL SPINE WO CON INDICATIONS: syncope TECHNIQUE: Noncontrast 3 mm thick sections acquired from the skull base to the T4 level. Sagittal and coronal reformats were then constructed. For radiation dose reduction, the following was used: automated exposure control, adjustment of mA and/or kV according to patient size. COMPARISON: [facility], CT, CT CERVICAL SPINE WO CON, 01/25/2020, 16:52. FINDINGS: Image quality: Excellent. Bones: There is discectomy and anterior fusion at C5-C7. No fractures or dislocations. Degenerative disc disease is present, moderate at C3-C4 and mild at C2-C3 and C4-C5. Mild to moderate bilateral facet arthropathy scattered in cervical spine. Severe atlantoaxial joint degeneration. Visualized superior ribs are intact. Soft tissues: Prevertebral soft tissues are normal in thickness. No paravertebral hematomas. No apical pneumothoraces. Heterotopic soft tissue ossification posterior to the C4-C5 appears unchanged. Moderate carotid artery atherosclerosis bilaterally. IMPRESSION: 1. No fracture or dislocation. 2. Degenerative and postsurgical changes in cervical spine. 3. Carotid artery atherosclerosis bilaterally. Dictated by: Palmer Joy M.D. on 04/13/2020 at 16:12 Approved by: Palmer Joy M.D. on 04/13/2020 at 16:17
[2020-04-13 16:03] LABS: Add Manual Diff / Slide Review NO; Basophils Absolute Auto 100 /uL (0-100); Basophils Percent Auto 0.9 % (0-2); Eosinophils Absolute Auto 100 /uL (0-450); Eosinophils Percent Auto 0.9 % (2-4); Hematocrit 37.6 % (41-53); Hemoglobin 12.9 g/dL (13.5-17.5); Lymphocytes Absolute Auto 2200 /uL (1100-4500); Lymphocytes Percent Auto 34.4 % (25-40); Mean Corpuscular HGB Conc 34.4 % (30-36); Mean Corpuscular Hemoglobin 34.1 PG (26-34); Mean Corpuscular Volume 99.3 fL (80-100); Monocytes Absolute Auto 600 /uL (0-900); Monocytes Percent Auto 9.5 % (3-14); Neutrophils Absolute Auto 3500 /uL (1500-7000); Neutrophils Percent Auto 54.3 % (50-75); Platelet Count 215 X10^3/uL (150-400); Red Blood Cell Count 3.78 X10^6/uL (4.5-5.9); Red Cell Distribution Width 13.4 % (11.6-14.8); White Blood Cell Count 6.5 X10^3/uL (4.5-11.0)
--- NOTE | 2020-04-13 16:08 | PC.NURSE ---
pt had been sitting, got up took a few steps and fell back. friend there witnessed event.
[2020-04-13 16:10] LABS: INR 1.1 (0.9-1.3); Prothrombin Time 12.6 SECONDS (10.1-12.7)
[2020-04-13 16:31] LABS: Alanine Aminotransferase 20 IU/L (<50); Albumin 3.9 g/dL (3.5-5.0); Albumin Globulin Ratio 1.5 (1.0-2.8); Alkaline Phosphatase 41 U/L (38-126); Aspartate Aminotransferase 30 IU/L (17-59); BUN Creatinine Ratio 22.4 (6-22); Bilirubin Total 0.8 mg/dL (0.2-1.3); Blood Urea Nitrogen 26 mg/dL (9-20); Calcium 9.3 mg/dL (8.4-10.2); Carbon Dioxide 22 mmol/L (22-32); Chloride 102 mmol/L (98-107); Creatine Kinase 55 U/L (55-170); Estimated Glomerular Filt Rate 59.8 mL/min (>60); Globulin 2.6 g/dL (1.7-4.1); Glucose 87 mg/dL (80-110); Sodium 135 mmol/L (137-145); Total Protein 6.5 g/dL (6.3-8.2)
[2020-04-13 16:32] LABS: HEMOLYSIS 96 (0-50)
[2020-04-13 16:33] LABS: Potassium 5.1 mmol/L (3.4-5.1)
[2020-04-13 16:40] LABS: Troponin I < 0.012 ng/mL (0.01-0.034)
--- NOTE | 2020-04-13 17:43 | DI.US.S_ITS ---
PROCEDURE: US CAROTID DOPPLER BI INDICATIONS: SYNCOPE TECHNIQUE: Color and pulse Doppler interrogation was performed of both carotid systems, with image documentation and velocity measurements. COMPARISON: None. FINDINGS: Stenosis calculations are based on SRU (Society of Radiologists in Ultrasound) criteria. Right side: Brachial blood pressure: 150/71 mm Hg. Common carotid artery peak systolic velocity: 53 cm/sec. Internal carotid artery peak systolic velocity: 78 cm/sec. Internal carotid artery end diastolic velocity: 23 cm/sec. External carotid artery peak systolic velocity: 83 cm/sec. ICA/CCA peak systolic ratio: 1.5. Luciano scale imaging description: Calcified plaque Percent internal carotid artery stenosis: Less than 50%. Vertebral artery: Flow direction is antegrade. Left side: Brachial blood pressure: 138/69 mm Hg. Common carotid artery peak systolic velocity: 65 cm/sec. Internal carotid artery peak systolic velocity: 194 cm/sec. Internal carotid artery end diastolic velocity: 48 cm/sec. External carotid artery peak systolic velocity: 108 cm/sec. ICA/CCA peak systolic ratio: 3.0. Luciano scale imaging description: Calcified plaque Percent internal carotid artery stenosis: 50-69%. Vertebral artery: Flow direction is antegrade. IMPRESSION: 1. 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 2. Less than 50% stenosis of the origin of the right internal carotid artery. Dictated by: Diane Crawford MD, PhD on 04/13/2020 at 19:15 Approved by: Diane Crawford MD, PhD on 04/13/2020 at 19:16
== END 2020-04-13 19:44 | disposition home or self-care (01) ==
PROVIDERS: Emergency Provider Emergency Medicine; PCP Family Medicine
DX: R55 Syncope and collapse (principal); S09.90XA Unspecified injury of head, initial encounter; W19.XXXA Unspecified fall, initial encounter; Z95.0 Presence of cardiac pacemaker; Z79.82 Long term (current) use of aspirin; I48.92 Unspecified atrial flutter
CPT/HCPCS: 36415; 70450; 71045; 72125; 80053; 82550; 84484; 85025; 85610; 93005; 93880; 99284

== ENCOUNTER 2020-07-03 09:37 | Emergency (ER) | payer MEDICARE, OTHER, SELFPAY ==
[2018-06-29 03:40] VITALS: BMI 27.6
[2020-07-03] VITALS (12 sets, daily range): BP systolic 149–190; BP diastolic 78–92; PULSE 69–77; RESP 18–36; TEMP 36.9; O2SAT 97–99; BMI 27.6
--- NOTE | 2020-07-03 09:51 | DI.RAD.S_ITS ---
PROCEDURE: XR CHEST 1V INDICATIONS: syncope TECHNIQUE: One view of the chest was acquired. COMPARISON: [facility], CR, XR CHEST 1V, 04/13/2020, 15:55. FINDINGS: Surgical changes and devices: Left chest wall 2 lead cardiac pacing device. Partially visualized ACF hardware. Lungs and pleura: Lungs are clear. No pleural effusions or pneumothorax. Mediastinum: Mediastinal contours appear normal. Heart size is normal. Bones and chest wall: No suspicious bony lesions. Overlying soft tissues appear unremarkable. IMPRESSION: No acute cardiopulmonary process demonstrated radiographically. Dictated by: Melquiades Gonzalez M.D. on 07/03/2020 at 10:10 Approved by: Melquiades Gonzalez M.D. on 07/03/2020 at 10:10
--- NOTE | 2020-07-03 09:53 | ED.SYNCOPE ---
HPI - Syncope General Chief Complaint: Dizziness Stated Complaint: fell this morning hit head Time Seen by Provider: 07/03/20 09:39 Source: patient Mode of arrival: Wheelchair Limitations: no limitations History of Present Illness HPI narrative: The patient is an 85-year-old male with history diabetes, pacemaker, presenting after syncopal episode this morning. He was at cardiology office 5 days ago he apparently has been having low blood pressure with systolic under 100. He was started on midodrine. states that she has only been giving him 2 a day instead of 3 a day and has been checking his blood pressure regularly able sitting and standing his blood pressure is quite elevated now in the emergency department 189/92. This morning he states that he got to use the restroom he thought it would be a good idea to lay down on the bed with the dog he felt a little dizzy lightheaded and fell to the floor. heard him fall came immediately he was easily arousable. He denies any injury from the fall. He still says he feels little bit dizzy but no weakness numbness or tingling. He denies any chest pain or heart palpitations. He states that his patient is different now but denies double or loss of vision he says it is a little bit blurry. complaint: collapsed -: second(s) Witnessed: no Related Data Home Medications Medication Instructions Recorded Confirmed tamsulosin [Flomax] 0.4 mg PO BEDTIME #0 09/07/17 03/05/19 Lantus Solostar U-100 Insulin 10 unit SUB-Q BEDTIME 03/28/18 03/05/19 duloxetine [Cymbalta] 30 mg PO BEDTIME 03/28/18 03/05/19 levothyroxine 75 mcg PO DAILY 08/27/18 03/05/19 metformin mg PO BID 08/27/18 03/05/19 amiodarone 200 mg tablet 200 mg PO BID tab 12/24/18 03/05/19 apixaban 5 mg tablet 5 mg PO BID 12/24/18 03/05/19 aspirin 81 mg tablet,delayed 81 mg PO DAILY 12/24/18 03/05/19 release atorvastatin 80 mg tablet 40 mg PO DAILY tab 12/24/18 03/05/19 escitalopram oxalate 10 mg PO DAILY 01/22/19 03/05/19 magnesium chloride [Mag 64] 64 mg PO DAILY 01/22/19 03/05/19 metoprolol succinate 75 mg PO DAILY 01/22/19 03/05/19 pravastatin 5 mg PO DAILY 01/22/19 03/05/19 Previous Rx's Medication Instructions Recorded nitroglycerin 0.4 mg SL Q5-15M PRN #30 tab 06/29/18 meclizine 25 mg PO BID-TID PRN #14 tab 01/22/19 Allergies Allergy/AdvReac Type Severity Reaction Status Date / Time Opdqgoi-Uok-Rhb Reductase Allergy Intermediate MUSCLE PAIN Verified 07/03/20 09:44 Inhibitor [[id number]-[id number] REDUCTASE INHIBITOR] piroxicam [PIROXICAM] Allergy Mild NAUSEA, Verified 07/03/20 09:44 VOMITING dabigatran etexilate AdvReac Hematuria Verified 07/03/20 09:44 Review of Systems Review of Systems ROS Unobtainable: All systems reviewed & are unremarkable except as noted in HPI and below Constitutional Constitutional: Denies chills, Denies fever(s), Denies lethargy and Denies weakness ENT Ears, Nose, Mouth, and Throat: Reports dizziness Cardiovascular Cardiovascular: Denies chest pain, Reports syncope, Denies irregular heart rhythm, Denies lightheadedness, Denies palpitations, Denies dyspnea, Denies dyspnea on exertion and Denies orthopnea Respiratory Respiratory: Denies cough, Denies dyspnea, Denies dyspnea on exertion and Denies wheezing Gastrointestinal Gastrointestinal: Denies abdominal pain, Denies change in bowel habits, Denies diarrhea, Denies nausea and Denies vomiting Musculoskeletal Musculoskeletal: Denies back pain and Denies myalgias Integumentary/Breasts Skin/Breast: Denies pruritus, Denies erythema, Denies rash and Denies wounds Neurologic Neurologic: Reports as per HPI, Denies behavioral changes, Reports dizziness, Reports syncope, Denies localized weakness, Denies restless legs and Denies weakness Psychiatric Psychiatric: Denies behavioral changes Endocrine Endocrine: Denies palpitations Allergic/Immunologic Allergic/Immunologic: Denies wheezing Patient History Medical History Anxiety (Chronic) CAD (coronary artery disease) (Chronic) DDD (degenerative disc disease), cervical (Chronic) Depression (Chronic) Diabetes (Resolved) Dyslipidemia (Chronic) Dysuria (Chronic) Elevated serum homocysteine level (Chronic) History of angina (Chronic) History of CVA (cerebrovascular accident) (Resolved) History of dizziness (Resolved) History of esophageal reflux (Resolved) History of fatigue (Resolved) History of hematuria (Resolved) Impotence (Chronic) Lumbosacral radiculopathy at L5 (Chronic) Memory deficit (Chronic) Neuropathy of both feet (Chronic) Osteoarthritis (Chronic) Pacemaker (Chronic ~2013) Paroxysmal A-fib (Chronic) 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) RBBB (Chronic) Renal insufficiency (Chronic) Sick sinus syndrome (Chronic) Sleep apnea (Chronic ~2012) Spinal stenosis in cervical region (Chronic) Spinal stenosis of lumbar region (Chronic) TIA (transient ischemic attack) (Acute) Urinary retention (Chronic) Surgical History H/O laminectomy (Resolved) H/O shoulder surgery (Resolved) H/O thumb surgery (Resolved) History of appendectomy (Resolved) History of bladder surgery (Resolved) History of cardiac cath (Resolved ~2012) History of cholecystectomy (Resolved ~2012) History of cystoscopy (Resolved) History of lumbar fusion (Resolved) History of tonsillectomy (Resolved) History of vasectomy (Resolved) Status post right foot surgery (Resolved) Social History marital status: details: aisha Horner, lives in [place] household members: spouse lives independently: Yes caregiver/support person: No housing: house Smoking Status: Never smoker alcohol intake: current substance use type: does not use Smoking Status: Never smoker alcohol intake frequency: holidays/special occasions only Substance Use Type: does not use Exam Initial Vital Signs Initial Vital Signs: Vital Signs Temperature 98.4 F 07/03/20 09:40 Pulse Rate 69 07/03/20 09:40 Respiratory Rate 18 07/03/20 09:40 Blood Pressure 189/92 H 07/03/20 09:40 Pulse Oximetry 99 07/03/20 09:40 GENERAL: Pleasant alert elderly male and in no acute distress. HEENT: Head atraumatic,EOMI, pupils reactive, face symmetric, moist mucous membranes CARDIOVASCULAR: Regular rate and rhythm without murmurs, rubs or gallops. RESPIRATORY: Breath sounds equal bilaterally, no wheezes rales or rhonchi. ABDOMEN: Soft, nontender. Normoactive bowel sounds all 4 quadrants. No guarding or rebound. EXTREMITIES: Normal range of motion, no clubbing or edema. Neurovascularly intact NEUROLOGICAL: Alert and oriented x4.Normal gait and speech. Cranial nerves II through XII grossly intact. Good [id number], good hbkx-ai-cdhr, strength equal bilaterally, no dysarthria or aphasia, sensation in tact to soft touch bilaterally, no visual changes, no facial droop SKIN: Warm, dry, no laceration, no petechiae, no rashes or lesions. Course Orders Ordered: ED Orders 07/03/20 09:45 Complete Blood Count AUTO DIFF Stat Comprehensive Metabolic Panel Stat Troponin & CK Cardiac Panel Stat 07/03/20 09:51 XR chest 1V Stat EKG-12 Lead Stat 07/03/20 10:13 CT head/brain wo con Stat Discontinued Medications Sodium Chloride (Normal Saline 0.9%) 1,000 mls @ 150 mls/hr IV CONT ALLA Last Infusion: 07/03/20 12:40 Dose: 0 mls/hr Documented by: Admin: 07/03/20 09:56 Dose: 150 mls/hr Documented by: RAO Vital Signs Vital signs: Vital Signs - 8 hr 07/03/20 09:40 07/03/20 09:43 07/03/20 09:44 Temperature 98.4 F Pulse Rate 69 69 69 Respiratory Rate 18 23 26 H Blood Pressure 189/92 H 189/92 H Pulse Oximetry 99 98 99 07/03/20 10:00 07/03/20 10:07 07/03/20 10:16 Temperature Pulse Rate 72 69 Respiratory Rate 22 22 Blood Pressure 153/88 H 166/84 H Pulse Oximetry 98 98 07/03/20 10:17 07/03/20 10:30 07/03/20 11:00 Temperature Pulse Rate 71 74 69 Respiratory Rate 22 20 25 H Blood Pressure 149/78 H 157/83 H Pulse Oximetry 98 98 98 07/03/20 11:30 07/03/20 12:01 07/03/20 12:03 Temperature Pulse Rate 69 71 77 Respiratory Rate 21 36 H 25 H Blood Pressure 158/87 H 190/90 H Pulse Oximetry 97 98 MDM - Syncope Lab Data Attestation: I reviewed the patient's lab results. Result diagrams: 07/03/20 09:45 07/03/20 09:45 Labs: Lab Results 07/03/20 07/03/20 Range/Units 09:45 09:45 WBC 6.3 (4.5-11.0) X10^3/uL RBC 4.07 L (4.5-5.9) X10^6/uL Hgb 13.8 (13.5-17.5) g/dL Hct 40.1 L (41-53) % MCV 98.7 (80-100) fL MCH 33.9 (26-34) PG MCHC 34.3 (30-36) % RDW 12.9 (11.6-14.8) % Plt Count 222 (150-400) X10^3/uL Neut % (Auto) 60.3 (50-75) % Lymph % (Auto) 28.7 (25-40) % [place] % (Auto) 9.4 (3-14) % Eos % (Auto) 0.8 L (2-4) % Baso % (Auto) 0.8 (0-2) % Neut # (Auto) 3800 (4559-7577) /uL Lymph # (Auto) 1800 (0547-5480) /uL [place] # (Auto) 600 (0-900) /uL Eos # (Auto) 100 (0-450) /uL Baso # (Auto) 100 (0-100) /uL Sodium 136 L (137-145) mmol/L Potassium 4.4 (3.4-5.1) mmol/L Chloride 98 (98-107) mmol/L Carbon Dioxide 29 (22-32) mmol/L BUN 18 (9-20) mg/dL Creatinine 1.17 (0.66-1.25) mg/dL Estimated GFR 59.2 L (>60) mL/min BUN/Creatinine Ratio 15.4 (6-22) Glucose 135 H (80-110) mg/dL Calcium 9.7 (8.4-10.2) mg/dL Total Bilirubin 0.8 (0.2-1.3) mg/dL AST 24 (17-59) IU/L ALT 19 (<50) IU/L Alkaline Phosphatase 68 (38-126) U/L Total Creatine Kinase 38 L (55-170) U/L CK-MB (CK-2) TNP CK-MB (CK-2) Rel Index TNP Troponin I < 0.012 (0.01-0.034) ng/mL Total Protein 7.1 (6.3-8.2) g/dL Albumin 4.4 (3.5-5.0) g/dL Globulin 2.7 (1.7-4.1) g/dL Albumin/Globulin Ratio 1.6 (1.0-2.8) ECG Data Attestation: I personally reviewed and interpreted this ECG as follows: Prior ECG tracings: available for review Interpretation: Paced rhythm rate [address] changes similar to previous EKG MDM Narrative Medical decision making narrative: 1130 Dr. Arteaga cardiology updated patient's it was in test results. He is familiar with the patient. At this time he recommends stopping the midodrine. Patient is ambulatory in the ED with a walker and overall feels better. Discharge Plan Departure Patient Disposition: Home Clinical Impression: Syncope Discharge Date/Time: 07/03/20 12:21 Instructions: DI for Syncope in Adults (Fainting) Activity Restrictions/Additional Instructions: *You have been diagnosed with syncope *What to do: Stop taking midodrine. Increase fluid intake. Need to use walker while walking. *Continue to take medications as directed *Follow up with your primary care provider in 2-3 days Call your collar padder blindstitch to schedule follow-up appointment *Return to ER if you should have recurrent episode of passing out, chest pain palpitations or any new, worsening or concerning symptoms Prescriptions: No Action tamsulosin [Flomax] 0.4 MG capsule,extended release 24hr 0.4 mg PO BEDTIME Qty: 0 RF: 0 nitroglycerin 0.4 mg tablet, sublingual 0.4 mg SL Q5-15M PRN (Reason: chest pain) Qty: 30 RF: 2 metoprolol succinate 50 mg tablet extended release 24 hr 75 mg PO DAILY RF: 0 pravastatin 10 mg tablet 5 mg PO DAILY RF: 0 escitalopram oxalate 10 mg tablet 10 mg PO DAILY RF: 0 magnesium chloride [Mag 64] 64 mg tablet,delayed release (DR/EC) 64 mg PO DAILY RF: 0 meclizine 25 mg tablet 25 mg PO BID-TID PRN (Reason: motion sickness) Qty: 14 RF: 0 Lantus Solostar U-100 Insulin 100 unit/mL (3 mL) Insulin Pen 10 unit SUB-Q BEDTIME RF: 0 duloxetine [Cymbalta] 30 MG capsule,delayed release(DR/EC) 30 mg PO BEDTIME RF: 0 levothyroxine 75 mcg tablet 75 mcg PO DAILY RF: 0 metformin 1,000 mg tablet PO BID RF: 0 apixaban 5 mg tablet 5 mg PO BID RF: 0 atorvastatin 80 mg tablet 40 mg PO DAILY RF: 0 amiodarone 200 mg tablet 200 mg PO BID RF: 0 aspirin [Adult Low Dose Aspirin] 81 mg tablet,delayed release (DR/EC) 81 mg PO DAILY RF: 0 Referrals: Joss Arteaga MD [Physician] - Jose De Jesus Smith MD [Primary Care Provider] -
[2020-07-03] MEDS: SODIUM CHLORIDE 0.9% 1,000 ML 150 ML IV (09:56)
[2020-07-03 10:02] LABS: Add Manual Diff / Slide Review NO; Basophils Absolute Auto 100 /uL (0-100); Basophils Percent Auto 0.8 % (0-2); Eosinophils Absolute Auto 100 /uL (0-450); Eosinophils Percent Auto 0.8 % (2-4); Hematocrit 40.1 % (41-53); Hemoglobin 13.8 g/dL (13.5-17.5); Lymphocytes Absolute Auto 1800 /uL (1100-4500); Lymphocytes Percent Auto 28.7 % (25-40); Mean Corpuscular HGB Conc 34.3 % (30-36); Mean Corpuscular Hemoglobin 33.9 PG (26-34); Mean Corpuscular Volume 98.7 fL (80-100); Monocytes Absolute Auto 600 /uL (0-900); Monocytes Percent Auto 9.4 % (3-14); Neutrophils Absolute Auto 3800 /uL (1500-7000); Neutrophils Percent Auto 60.3 % (50-75); Platelet Count 222 X10^3/uL (150-400); Red Blood Cell Count 4.07 X10^6/uL (4.5-5.9); Red Cell Distribution Width 12.9 % (11.6-14.8); White Blood Cell Count 6.3 X10^3/uL (4.5-11.0)
[2020-07-03 10:09] LABS: Alanine Aminotransferase 19 IU/L (<50); Albumin 4.4 g/dL (3.5-5.0); Albumin Globulin Ratio 1.6 (1.0-2.8); Alkaline Phosphatase 68 U/L (38-126); Aspartate Aminotransferase 24 IU/L (17-59); BUN Creatinine Ratio 15.4 (6-22); Bilirubin Total 0.8 mg/dL (0.2-1.3); Blood Urea Nitrogen 18 mg/dL (9-20); Calcium 9.7 mg/dL (8.4-10.2); Carbon Dioxide 29 mmol/L (22-32); Chloride 98 mmol/L (98-107); Creatine Kinase 38 U/L (55-170); Estimated Glomerular Filt Rate 59.2 mL/min (>60); Globulin 2.7 g/dL (1.7-4.1); Glucose 135 mg/dL (80-110); HEMOLYSIS 21 (0-50); Potassium 4.4 mmol/L (3.4-5.1); Sodium 136 mmol/L (137-145); Total Protein 7.1 g/dL (6.3-8.2)
--- NOTE | 2020-07-03 10:13 | DI.CT.S_ITS ---
PROCEDURE: CT HEAD/BRAIN WO CON INDICATIONS: syncope TECHNIQUE: Noncontrast 4.5 mm thick angled axial sections acquired from the foramen magnum to the vertex, with coronal and sagittal reformats. For radiation dose reduction, the following was used: automated exposure control, adjustment of mA and/or kV according to patient size. COMPARISON: [facility], CT, CT HEAD/BRAIN WO CON, 01/25/2020, 16:52. [facility], CT, CT HEAD/BRAIN WO CON, 01/22/2019, 14:01. [facility], CT, CT HEAD/BRAIN WO CON, 12/14/2018, 15:26. [facility], CT, CT HEAD/BRAIN WO CON, 10/25/2018, 12:36. [facility], CT, CT ANGIO HEAD AND NECK, 10/25/2018, 11:30. [facility], CT, CT HEAD/BRAIN WO CON, 10/25/2018, 10:12. FINDINGS: Image quality: Excellent. CSF spaces: Basal cisterns are patent. No extra-axial fluid collections. The ventricles are symmetric in size and shape. Brain: No intracranial bleeds or masses. There is cerebral volume loss for age, with resultant ventricular and sulcal prominence. There are periventricular and deep white matter chronic small vessel ischemic changes. There is intracranial internal carotid artery and vertebral artery atherosclerosis. Skull and face: Calvarium and visualized facial bones appear intact, without suspicious lesions. Sinuses: Visualized sinuses and mastoids are clear. IMPRESSION: No acute intracranial disease process. Dictated by: Diane Crawford MD, PhD on 07/03/2020 at 9:20 Approved by: Diane Crawford MD, PhD on 07/03/2020 at 9:28
[2020-07-03 10:20] LABS: Troponin I < 0.012 ng/mL (0.01-0.034)
--- NOTE | 2020-07-03 12:07 | PC.NURSE ---
ambulated pt with walker assistance around ED. Pt had to stop several times due to dizziness.
== END 2020-07-03 12:21 | disposition home or self-care (01) ==
PROVIDERS: Emergency Provider Emergency Medicine; PCP Family Medicine
DX: R55 Syncope and collapse (principal); R42 Dizziness and giddiness; I10 Essential (primary) hypertension; E11.9 Type 2 diabetes mellitus without complications; Z95.0 Presence of cardiac pacemaker; H53.8 Other visual disturbances; R07.9 Chest pain, unspecified
CPT/HCPCS: 36415; 70450; 71045; 80053; 82550; 84484; 85025; 93005; 96360; 96361; 99284; 99285

== ENCOUNTER 2020-07-06 14:49 | Inpatient (IN) | payer MEDICARE, OTHER, SELFPAY ==
[2018-06-29 03:40] VITALS: BMI 27.6
[2020-07-06] VITALS (7 sets, daily range): BP systolic 140–213; BP diastolic 66–97; PULSE 70–74; RESP 14–20; TEMP 36.1–37.1; O2SAT 96–100; BMI 26.4
--- NOTE | 2020-07-06 15:55 | DI.CT.S_ITS ---
PROCEDURE: CT HEAD/BRAIN WO CON INDICATIONS: vision changes, recent fall TECHNIQUE: Noncontrast 4.5 mm thick angled axial sections acquired from the foramen magnum to the vertex, with coronal and sagittal reformats. For radiation dose reduction, the following was used: automated exposure control, adjustment of mA and/or kV according to patient size. COMPARISON: [facility], CT, CT HEAD/BRAIN WO CON, 07/03/2020, 10:08. FINDINGS: Image quality: Excellent. CSF spaces: Basal cisterns are patent. No extra-axial fluid collections. There is [id number] cerebral volume loss, with resultant ventricular and sulcal prominence. Brain: No intracranial hemorrhage, mass, or mass effect. There are subcortical, periventricular and deep white matter hypodensities consistent with [id number] chronic small vessel ischemic changes. A focal hypodensity within the left land radiata is suggestive of a prior lacunar infarct. There is intracranial internal carotid artery atherosclerosis. Skull and face: Calvarium and visualized facial bones appear intact, without suspicious lesions. Sinuses: Visualized sinuses and mastoids are clear. IMPRESSION: 1. No acute intracranial abnormality. 2. Mild to moderate cerebral volume loss and chronic white matter small vessel ischemic changes. Dictated by: Jamshid Stubbs M.D. on 07/06/2020 at 16:11 Approved by: Jamshid Stubbs M.D. on 07/06/2020 at 16:13
--- NOTE | 2020-07-06 17:00 | ED.GENADULT ---
HPI - General Adult General Chief complaint: Eye Problems Stated complaint: Dizzy, Double Vision, Headache Time Seen by Provider: 07/06/20 16:54 Source: patient and family Mode of arrival: Ambulatory Limitations: no limitations History of Present Illness HPI narrative: Patient is an 85-year-old male. Has a history of CVA. Is on anticoagulation. Has had prior history of dizziness issues however he states that for the past couple days his symptoms have been worsening and over the past 24 hours has developed double vision. Also has had a headache starting this morning. Was recently started on midodrine by Cardiology secondary to low blood pressure. He has been taking this as directed. He states that since his double vision in his headache started he has had a fairly difficult time even standing which is worse than what his baseline balance issues. He also stated that he started to have a headache today. He also thickening that he is having double vision which is also complicating his issues. Related Data Home Medications Medication Instructions Recorded Confirmed tamsulosin [Flomax] 0.4 mg PO BEDTIME #0 09/07/17 03/05/19 Lantus Solostar U-100 Insulin 10 unit SUB-Q BEDTIME 03/28/18 03/05/19 duloxetine [Cymbalta] 30 mg PO BEDTIME 03/28/18 03/05/19 levothyroxine 75 mcg PO DAILY 08/27/18 03/05/19 metformin mg PO BID 08/27/18 03/05/19 amiodarone 200 mg tablet 200 mg PO BID tab 12/24/18 03/05/19 apixaban 5 mg tablet 5 mg PO BID 12/24/18 03/05/19 aspirin 81 mg tablet,delayed 81 mg PO DAILY 12/24/18 03/05/19 release atorvastatin 80 mg tablet 40 mg PO DAILY tab 12/24/18 03/05/19 escitalopram oxalate 10 mg PO DAILY 01/22/19 03/05/19 magnesium chloride [Mag 64] 64 mg PO DAILY 01/22/19 03/05/19 metoprolol succinate 75 mg PO DAILY 01/22/19 03/05/19 pravastatin 5 mg PO DAILY 01/22/19 03/05/19 Previous Rx's Medication Instructions Recorded nitroglycerin 0.4 mg SL Q5-15M PRN #30 tab 06/29/18 meclizine 25 mg PO BID-TID PRN #14 tab 01/22/19 Allergies Allergy/AdvReac Type Severity Reaction Status Date / Time Fepiaid-Zjs-Lph Reductase Allergy Intermediate MUSCLE PAIN Verified 07/03/20 09:44 Inhibitor [QDDVQLQ-PRZ-PDN REDUCTASE INHIBITOR] piroxicam [PIROXICAM] Allergy Mild NAUSEA, Verified 07/03/20 09:44 VOMITING dabigatran etexilate AdvReac Hematuria Verified 07/03/20 09:44 Review of Systems Constitutional Constitutional: Denies chills, Denies frequent falls and Reports headache(s) Eyes Eyes: Reports change in vision ENT Ears, Nose, Mouth, and Throat: Denies vertigo, Reports dizziness, Reports headache(s), Reports disequilibrium and Denies sinus pain Cardiovascular Cardiovascular: Denies chest pain and Denies dyspnea Respiratory Respiratory: Denies dyspnea Gastrointestinal Gastrointestinal: Denies abdominal pain, Denies nausea and Denies vomiting Genitourinary Genitourinary: Denies dysuria Genitourinary: Denies dysuria Musculoskeletal Musculoskeletal: Denies arthralgias, Denies myalgias and Denies numbness Integumentary/Breasts Skin/Breast: Denies rash Neurologic Neurologic: Denies abnormal speech, Denies confusion, Denies vertigo, Reports dizziness, Denies frequent falls, Reports headache(s), Denies lack of coordination, Denies numbness, Denies convulsions and Reports disequilibrium Psychiatric Psychiatric: Denies confusion Hematologic/Lymphatic Comments: On apixaban Allergic/Immunologic Allergic/Immunologic: Denies urticaria Patient History Medical History Anxiety (Chronic) CAD (coronary artery disease) (Chronic) DDD (degenerative disc disease), cervical (Chronic) Depression (Chronic) Diabetes (Resolved) Dyslipidemia (Chronic) Dysuria (Chronic) Elevated serum homocysteine level (Chronic) History of angina (Chronic) History of CVA (cerebrovascular accident) (Resolved) History of dizziness (Resolved) History of esophageal reflux (Resolved) History of fatigue (Resolved) History of hematuria (Resolved) Impotence (Chronic) Lumbosacral radiculopathy at L5 (Chronic) Memory deficit (Chronic) Neuropathy of both feet (Chronic) Osteoarthritis (Chronic) Pacemaker (Chronic ~2013) Paroxysmal A-fib (Chronic) 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) RBBB (Chronic) Renal insufficiency (Chronic) Sick sinus syndrome (Chronic) Sleep apnea (Chronic ~2012) Spinal stenosis in cervical region (Chronic) Spinal stenosis of lumbar region (Chronic) TIA (transient ischemic attack) (Acute) Urinary retention (Chronic) Surgical History H/O laminectomy (Resolved) H/O shoulder surgery (Resolved) H/O thumb surgery (Resolved) History of appendectomy (Resolved) History of bladder surgery (Resolved) History of cardiac cath (Resolved ~2012) History of cholecystectomy (Resolved ~2012) History of cystoscopy (Resolved) History of lumbar fusion (Resolved) History of tonsillectomy (Resolved) History of vasectomy (Resolved) Status post right foot surgery (Resolved) Social History marital status: details: aisha Horner, lives in [place] household members: spouse lives independently: Yes caregiver/support person: No housing: house Smoking Status: Never smoker alcohol intake: current substance use type: does not use Smoking Status: Never smoker alcohol intake frequency: holidays/special occasions only Substance Use Type: does not use Exam Initial Vital Signs Initial Vital Signs: Vital Signs Temperature 96.9 F L 07/06/20 14:59 Pulse Rate 70 07/06/20 14:59 Respiratory Rate 18 07/06/20 14:59 Blood Pressure 152/77 H 07/06/20 14:59 Pulse Oximetry 100 07/06/20 14:59 Const General: cooperative, comfortable and well developed Limitations: mental status not altered [facility] Head: normal to inspection and normocephalic Resp Effort & Inspection: normal respiratory effort Auscultation: clear to auscultation bilaterally Cardio Rate: regular rate Rhythm: regular rhythm GI Inspection: non-distended Palpation: soft Skin Lesions: no lesions Rashes: no rashes Neuro General: patient alert, patient awake and patient oriented x3 Cranial Nerves: CN's II-XI intact bilaterally Cognition: normal cognition Speech: speech normal Motor: muscle tone normal throughout Sensory Exam: no sensory deficits noted Extrem General: normal to inspection and capillary refill normal Psych Appearance: grossly normal and well kempt Scores GCS [place] coma scale eye opening: Spontaneous Katarzyna coma scale verbal response: Orientated Katarzyna coma scale motor response: Obey commands [place]ocker coma scale total score: 15 Course Orders Ordered: ED Orders 07/06/20 15:55 CT head/brain wo con Stat 07/06/20 17:49 CT angio head and neck Stat 07/06/20 18:45 Basic Metabolic Panel Stat Complete Blood Count AUTO DIFF Stat Partial Thromboplastin Time Stat Prothrombin Time INR Stat 07/06/20 19:45 Consult to Physical Therapy Evaluate & Treat Urinalysis and Microscopic Stat 07/06/20 19:47 Consult to Physician Urgent 07/07/20 06:00 Complete Blood Count AUTO DIFF Stat Comprehensive Metabolic Panel Stat Ondansetron HCl (Zofran) 4 mg IV Q4HR PRN PRN Reason: Nausea And Vomiting Discontinued Medications Sodium Chloride (Normal Saline 0.9%) 1,000 mls @ 500 mls/hr IV BOLUS ONE Stop: 07/06/20 19:48 Last Admin: 07/06/20 18:32 Dose: 500 mls/hr Documented by: HIPOLITO Vital Signs Vital signs: Vital Signs - 8 hr 07/06/20 14:59 07/06/20 19:02 07/06/20 19:30 Temperature 96.9 F L Pulse Rate 70 70 70 Respiratory Rate 18 Blood Pressure 152/77 H 153/76 H 152/82 H Pulse Oximetry 100 99 98 Medical Decision Making Lab Data Lab results reviewed: Yes I reviewed the patient's lab results. Result diagrams: 07/06/20 18:45 07/06/20 18:45 Labs: Lab Results 07/06/20 07/06/20 07/06/20 Range/Units 18:45 18:45 18:45 WBC 5.1 (4.5-11.0) X10^3/uL RBC 3.92 L (4.5-5.9) X10^6/uL Hgb 13.3 L (13.5-17.5) g/dL Hct 38.8 L (41-53) % MCV 99.1 (80-100) fL MCH 33.9 (26-34) PG MCHC 34.2 (30-36) % RDW 13.0 (11.6-14.8) % Plt Count 201 (150-400) X10^3/uL Neut % (Auto) 57.0 (50-75) % Lymph % (Auto) 30.8 (25-40) % [place] % (Auto) 9.2 (3-14) % Eos % (Auto) 2.0 (2-4) % Baso % (Auto) 1.0 (0-2) % Neut # (Auto) 2900 (8283-8789) /uL Lymph # (Auto) 1600 (3977-6725) /uL [place] # (Auto) 500 (0-900) /uL Eos # (Auto) 100 (0-450) /uL Baso # (Auto) 0 (0-100) /uL PT 12.7 (10.1-12.7) SECONDS INR 1.1 (0.9-1.3) APTT 33 (26.4-36.2) SECONDS Sodium 133 L (137-145) mmol/L Potassium 4.6 (3.4-5.1) mmol/L Chloride 97 L (98-107) mmol/L Carbon Dioxide 26 (22-32) mmol/L BUN 18 (9-20) mg/dL Creatinine 1.10 (0.66-1.25) mg/dL Estimated GFR > 60.0 (>60) mL/min BUN/Creatinine Ratio 16.4 (6-22) Glucose 132 H (80-110) mg/dL Calcium 9.5 (8.4-10.2) mg/dL Imaging Data CTA - brain/neck: Radiologist's Impression: [place] [address] CT Scan Report Signed Patient: Sotero Kasper WMR#: [id number] : 5Acct:[id number] Age/Sex: 85 / MDate of Service: 07/06/20 Loc: ED Accession Number: [id number] Procedure: CT angio head and neck Ordering Provider: Jose De Jesus Christie D.O. PROCEDURE: CT ANGIO HEAD AND NECK INDICATIONS: Double vision history of CVA TECHNIQUE: Pre-contrast 4.5 mm thick sections acquired from the foramen magnum to the vertex. After the administration of intravenous contrast, 1 mm thick sections acquired from the aortic arch through the [place] of [place]. Post-contrast 4.5 mm thick sections then re-acquired from the foramen magnum to the vertex. 3-dimensional nhawmzj-dellnhbmp-ibtzeakwud (MIP) and/or volume rendering reformats were acquired of the central intracranial vasculature and neck separately. COMPARISON: [facility], CT, CT ANGIO HEAD AND NECK, 10/25/2018, 11:30. FINDINGS: Image quality: Excellent. BRAIN: CSF spaces: Ventricles are normal in size and shape. Basal cisterns are patent. No extra-axial fluid collections. Brain: No midline shift. No intracranial bleeds or masses. Moderate volume loss. Luciano-white matter interface appears intact. No suspicious enhancement. Skull and face: Calvarium and facial bones appear intact, without suspicious lesions. Orbits appear normal. Sinuses: Sinuses and mastoids are clear. HEAD CT ANGIOGRAPHY: Anterior circulation: Intracranial internal carotid arteries are normal in size and flow. The flow within the paired anterior cerebral arteries is normal and symmetric. The flow within the middle cerebral arteries is normal and symmetric. The anterior communicating artery is seen. No aneurysms are seen. Posterior circulation: The left vertebral artery is dominant. The right tapers and branches just before its confluence with the left. Visualized portions of the vertebral arteries demonstrate normal caliber, and join to form a normal appearing basilar artery. Flow within the posterior cerebral arteries is normal and symmetric. No aneurysms are seen. NECK CT ANGIOGRAPHY: Carotid system: The great vessels demonstrate a conventional anatomy as they arise from the aortic arch. The origins of the common carotid arteries appear patent. The common carotid arteries demonstrate normal caliber and courses. At the left carotid bifurcation, there is heterogeneous mixed calcified and noncalcified plaque extending into the ICA origin causing a significant luminal stenosis estimated to be greater than 70%. This extends for a length of approximately 1.4 cm. No significant right ICA stenosis. Posterior circulation: The origins of the vertebral arteries both appear widely patent. The right vertebral artery is diffusely diminutive from its origin through its entire course. The more superior extracranial portions of both vertebral arteries also demonstrate normal courses and calibers. They join to form a normal appearing basilar artery. Soft tissues: Visualized neck soft tissues demonstrate no suspicious abnormalities. Bones: No suspicious bony lesions. Visualized cervical spine appears normally aligned. There is anterior cervical fusion from C5 through C7. IMPRESSION: 1. No CT evidence of acute intracranial process or unusual enhancement. 2. No visible occlusion or aneurysm of the intracranial circulation. 3. Left vertebral dominance. 4. Severe left ICA origin stenosis to a similar extent compared to the prior study. Any quantitative measurements of stenosis were performed using NASCET criteria. Dictated by: Mary Younger M.D. on 07/06/2020 at 19:12 Approved by: Mary Younger M.D. on 07/06/2020 at 19:22 CT scan - head: Radiologist's Impression: [address] [address] [address] Scan Report Signed Patient: Sotero Kasper WMR#: [id number] : 5Acct:[id number] Age/Sex: 85 / MDate of Service: 07/06/20 Loc: ED Accession Number: [id number] Procedure: CT head/brain wo con Ordering Provider: Jose De Jesus Christie D.O. PROCEDURE: CT HEAD/BRAIN WO CON INDICATIONS: vision changes, recent fall TECHNIQUE: Noncontrast 4.5 mm thick angled axial sections acquired from the foramen magnum to the vertex, with coronal and sagittal reformats. For radiation dose reduction, the following was used: automated exposure control, adjustment of mA and/or kV according to patient size. COMPARISON: [facility], CT, CT HEAD/BRAIN WO CON, 07/03/2020, 10:08. FINDINGS: Image quality: Excellent. CSF spaces: Basal cisterns are patent. No extra-axial fluid collections. There is kfbm-qo-mjcgvsol cerebral volume loss, with resultant ventricular and sulcal prominence. Brain: No intracranial hemorrhage, mass, or mass effect. There are subcortical, periventricular and deep white matter hypodensities consistent with webc-tx-qhnhhaeq chronic small vessel ischemic changes. A focal hypodensity within the left land radiata is suggestive of a prior lacunar infarct. There is intracranial internal carotid artery atherosclerosis. Skull and face: Calvarium and visualized facial bones appear intact, without suspicious lesions. Sinuses: Visualized sinuses and mastoids are clear. IMPRESSION: 1. No acute intracranial abnormality. 2. Mild to moderate cerebral volume loss and chronic white matter small vessel ischemic changes. Dictated by: Jamshid Stubbs M.D. on 07/06/2020 at 16:11 Approved by: Jamshid Stubbs M.D. on 07/06/2020 at 16:13 ECG Data Attestation: I personally reviewed and interpreted this ECG as follows: Prior ECG tracings: not available for review Interpretation: Ventricular paced Rate is 69 MDM Narrative Medical decision making narrative: Patient does have binocular diplopia. The symptoms resolved when he closes each eye independently. Has a nonfocal neurologic exam otherwise. Strength 5/5 bilateral upper lower extremities. Is alert oriented x3. Non-con head CT unremarkable. CTA unremarkable. Is ventricular paced on his EKG. He has had a stroke in the past and has had balance issues somewhat since then but never any diplopia. Patient cannot have an MRI secondary to presence of his pacemaker. He is not having chest pain. Do have concern potential further CVA versus TIA or potentially just a progression of his disease. Discussed the case with Dr. Howard who is on-call for patient's primary provider. Patient is unstable with standing and I feel unsafe to be discharged home so will admit for further evaluation and treatment. Patient and expressed understanding and agreement. Discharge Plan Departure Patient Disposition: Admitted as Observation Clinical Impression: Hypertension, Diplopia, Unsteadiness, Headache Referrals: Jose De Jesus Smith MD [Primary Care Provider] -
--- NOTE | 2020-07-06 17:17 | PC.NURSE ---
pt complains of double vision when both eyes are open. when he closes one eye, either one, his vision is normal. pt complains of headache as well. his gave him tylenol arthritis today.
--- NOTE | 2020-07-06 17:49 | DI.CT.S_ITS ---
PROCEDURE: CT ANGIO HEAD AND NECK INDICATIONS: Double vision history of CVA TECHNIQUE: Pre-contrast 4.5 mm thick sections acquired from the foramen magnum to the vertex. After the administration of intravenous contrast, 1 mm thick sections acquired from the aortic arch through the [place] of [place]. Post-contrast 4.5 mm thick sections then re-acquired from the foramen magnum to the vertex. 3-dimensional eawvwzs-jgbhszbzq-bcqsgncdte (MIP) and/or volume rendering reformats were acquired of the central intracranial vasculature and neck separately. COMPARISON: [facility], CT, CT ANGIO HEAD AND NECK, 10/25/2018, 11:30. FINDINGS: Image quality: Excellent. BRAIN: CSF spaces: Ventricles are normal in size and shape. Basal cisterns are patent. No extra-axial fluid collections. Brain: No midline shift. No intracranial bleeds or masses. Moderate volume loss. Luciano-white matter interface appears intact. No suspicious enhancement. Skull and face: Calvarium and facial bones appear intact, without suspicious lesions. Orbits appear normal. Sinuses: Sinuses and mastoids are clear. HEAD CT ANGIOGRAPHY: Anterior circulation: Intracranial internal carotid arteries are normal in size and flow. The flow within the paired anterior cerebral arteries is normal and symmetric. The flow within the middle cerebral arteries is normal and symmetric. The anterior communicating artery is seen. No aneurysms are seen. Posterior circulation: The left vertebral artery is dominant. The right tapers and branches just before its confluence with the left. Visualized portions of the vertebral arteries demonstrate normal caliber, and join to form a normal appearing basilar artery. Flow within the posterior cerebral arteries is normal and symmetric. No aneurysms are seen. NECK CT ANGIOGRAPHY: Carotid system: The great vessels demonstrate a conventional anatomy as they arise from the aortic arch. The origins of the common carotid arteries appear patent. The common carotid arteries demonstrate normal caliber and courses. At the left carotid bifurcation, there is heterogeneous mixed calcified and noncalcified plaque extending into the ICA origin causing a significant luminal stenosis estimated to be greater than 70%. This extends for a length of approximately 1.4 cm. No significant right ICA stenosis. Posterior circulation: The origins of the vertebral arteries both appear widely patent. The right vertebral artery is diffusely diminutive from its origin through its entire course. The more superior extracranial portions of both vertebral arteries also demonstrate normal courses and calibers. They join to form a normal appearing basilar artery. Soft tissues: Visualized neck soft tissues demonstrate no suspicious abnormalities. Bones: No suspicious bony lesions. Visualized cervical spine appears normally aligned. There is anterior cervical fusion from C5 through C7. IMPRESSION: 1. No CT evidence of acute intracranial process or unusual enhancement. 2. No visible occlusion or aneurysm of the intracranial circulation. 3. Left vertebral dominance. 4. Severe left ICA origin stenosis to a similar extent compared to the prior study. Any quantitative measurements of stenosis were performed using NASCET criteria. Dictated by: Mary Younger M.D. on 07/06/2020 at 19:12 Approved by: Mary Younger M.D. on 07/06/2020 at 19:22
[2020-07-06] MEDS: SODIUM CHLORIDE 0.9% 1,000 ML 500 ML IV (18:32)
[2020-07-06 18:51] LABS: Add Manual Diff / Slide Review NO; Basophils Absolute Auto 0 /uL (0-100); Eosinophils Absolute Auto 100 /uL (0-450); Hematocrit 38.8 % (41-53); Hemoglobin 13.3 g/dL (13.5-17.5); Lymphocytes Absolute Auto 1600 /uL (1100-4500); Lymphocytes Percent Auto 30.8 % (25-40); Mean Corpuscular HGB Conc 34.2 % (30-36); Mean Corpuscular Hemoglobin 33.9 PG (26-34); Mean Corpuscular Volume 99.1 fL (80-100); Monocytes Absolute Auto 500 /uL (0-900); Monocytes Percent Auto 9.2 % (3-14); Neutrophils Absolute Auto 2900 /uL (1500-7000); Platelet Count 201 X10^3/uL (150-400); Red Blood Cell Count 3.92 X10^6/uL (4.5-5.9); White Blood Cell Count 5.1 X10^3/uL (4.5-11.0)
[2020-07-06 19:00] LABS: INR 1.1 (0.9-1.3); Prothrombin Time 12.7 SECONDS (10.1-12.7)
[2020-07-06 19:02] LABS: BUN Creatinine Ratio 16.4 (6-22); Blood Urea Nitrogen 18 mg/dL (9-20); Calcium 9.5 mg/dL (8.4-10.2); Carbon Dioxide 26 mmol/L (22-32); Chloride 97 mmol/L (98-107); Estimated Glomerular Filt Rate > 60.0 mL/min (>60); Glucose 132 mg/dL (80-110); HEMOLYSIS < 15 (0-50); PTT Partial Thromboplastin Tim 33 SECONDS (26.4-36.2); Potassium 4.6 mmol/L (3.4-5.1); Sodium 133 mmol/L (137-145)
[2020-07-06 20:20] LABS: COVID19 -Nasal RAPID Negative (Negative)
--- NOTE | 2020-07-06 21:33 | PC.NURSE ---
[id number] [employer] Ginger Martínez RN notified
--- NOTE | 2020-07-06 21:47 | PC.ADMIT ---
[email or web address] Admission Note: The patient,Sotero Kasper,85 y/o, was given written information regarding hospital policies, unit procedures and contact persons. Patient's smoking status: Never smoker. Vital Signs - 8 hr 07/06/20 14:59 07/06/20 19:02 07/06/20 19:30 Temperature 96.9 F L Pulse Rate 70 70 70 Respiratory Rate 18 Blood Pressure 152/77 H 153/76 H 152/82 H Pulse Oximetry 100 99 98 07/06/20 20:00 07/06/20 20:03 07/06/20 20:55 Temperature 98.2 F Pulse Rate 70 74 70 Respiratory Rate 18 20 14 Blood Pressure 213/95 H 177/97 H 142/83 H Pulse Oximetry 98 99 96 Patient up from ED via stretcher. Patient was able to get off of the stretcher and stand/pivot to AC bed. Blood sugar was 88, food provided and patient tolerated well. Patient A&O, calm and cooperative.
--- NOTE | 2020-07-06 21:50 | PC.NURSE ---
While patient was boosting himself up into bed he had a 9 beat run of V-tach. This RN in the room during that time. Patient denied any chest pain or feeling lightheaded or short of breath. aware and no new orders.
[2020-07-06] MEDS: ATORVASTATIN 20 MG TABLET PO (22:40)
[2020-07-06] MEDS: DULOXETINE 30 MG CAPSULE PO (22:40)
[2020-07-07] VITALS (8 sets, daily range): BP systolic 112–169; BP diastolic 56–95; PULSE 69–76; RESP 16–20; TEMP 36.1–36.8; O2SAT 96–98
[2020-07-07 05:19] LABS: Add Manual Diff / Slide Review NO; Basophils Absolute Auto 0 /uL (0-100); Basophils Percent Auto 0.7 % (0-2); Eosinophils Absolute Auto 100 /uL (0-450); Eosinophils Percent Auto 1.3 % (2-4); Hematocrit 36.1 % (41-53); Hemoglobin 12.6 g/dL (13.5-17.5); Lymphocytes Absolute Auto 1600 /uL (1100-4500); Lymphocytes Percent Auto 27.7 % (25-40); Mean Corpuscular HGB Conc 34.9 % (30-36); Mean Corpuscular Hemoglobin 34.1 PG (26-34); Mean Corpuscular Volume 97.7 fL (80-100); Monocytes Absolute Auto 600 /uL (0-900); Monocytes Percent Auto 10.5 % (3-14); Neutrophils Absolute Auto 3400 /uL (1500-7000); Neutrophils Percent Auto 59.8 % (50-75); Platelet Count 199 X10^3/uL (150-400); Red Cell Distribution Width 12.8 % (11.6-14.8); White Blood Cell Count 5.7 X10^3/uL (4.5-11.0)
[2020-07-07 05:28] LABS: Alanine Aminotransferase 18 IU/L (<50); Albumin 3.6 g/dL (3.5-5.0); Albumin Globulin Ratio 1.4 (1.0-2.8); Alkaline Phosphatase 59 U/L (38-126); Aspartate Aminotransferase 20 IU/L (17-59); BUN Creatinine Ratio 14.5 (6-22); Bilirubin Total 0.6 mg/dL (0.2-1.3); Blood Urea Nitrogen 16 mg/dL (9-20); Calcium 9.1 mg/dL (8.4-10.2); Carbon Dioxide 28 mmol/L (22-32); Chloride 103 mmol/L (98-107); Estimated Glomerular Filt Rate > 60.0 mL/min (>60); Globulin 2.5 g/dL (1.7-4.1); Glucose 114 mg/dL (80-110); HEMOLYSIS < 15 (0-50); Sodium 135 mmol/L (137-145); Total Protein 6.1 g/dL (6.3-8.2)
[2020-07-07 05:29] LABS: Magnesium 1.5 mg/dL (1.6-2.3)
[2020-07-07] MEDS: LEVOTHYROXINE 75 MCG TABLET PO (05:39)
[2020-07-07 06:00] LABS: Thyroid Stimulating Hormone 3.29 uIU/mL (0.47-4.68)
[2020-07-07] MEDS: ASPIRIN EC 81 MG TABLET PO (08:51)
[2020-07-07] MEDS: DULOXETINE 30 MG CAPSULE PO (08:51)
[2020-07-07] MEDS: MAGNESIUM SULFATE 2 GM/50 ML PIGGYBACK IV (08:51)
[2020-07-07] MEDS: METFORMIN HCL 500 MG TABLET PO ×2 (08:52→17:58)
[2020-07-07] MEDS: AMIODARONE 100 MG TABLET PO ×2 (08:52→20:07)
--- NOTE | 2020-07-07 11:31 | PT.IIE ---
Surgical History (Last Reviewed 07/03/20 @ 09:58 by Arlette Jenkins DO) H/O laminectomy (Resolved) H/O shoulder surgery (Resolved) H/O thumb surgery (Resolved) History of appendectomy (Resolved) History of bladder surgery (Resolved) History of cardiac cath (Resolved ~2012) History of cholecystectomy (Resolved ~2012) History of cystoscopy (Resolved) History of lumbar fusion (Resolved) History of tonsillectomy (Resolved) History of vasectomy (Resolved) Status post right foot surgery (Resolved) Medical History (Last Reviewed 07/06/20 @ 19:57 by Jose De Jesus Christie DO) Anxiety (Chronic) CAD (coronary artery disease) (Chronic) DDD (degenerative disc disease), cervical (Chronic) Depression (Chronic) Diabetes (Resolved) Dyslipidemia (Chronic) Dysuria (Chronic) Elevated serum homocysteine level (Chronic) History of angina (Chronic) History of CVA (cerebrovascular accident) (Resolved) History of dizziness (Resolved) History of esophageal reflux (Resolved) History of fatigue (Resolved) History of hematuria (Resolved) Impotence (Chronic) Lumbosacral radiculopathy at L5 (Chronic) Memory deficit (Chronic) Neuropathy of both feet (Chronic) Osteoarthritis (Chronic) Pacemaker (Chronic ~2013) Paroxysmal A-fib (Chronic) 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 Mobility and Gait Pt sometimes needed assist with sit to stand and mobility from his while using the FWW. Activities of Daily Living and IADL's Pt needs assist with drying off after a shower, and some dressing. Prior Functional Level (Other details) Pt and his live at [facility]. Social History Household Members spouse Living Arrangements Group Home Facility Number of Floors (Floors) One Floor Number of Stairs To Enter/Railing? elevator as needed Home Environment High Toilet,Walk in Shower Home Equipment Front Wheel Walker,Straight Cane,Hand Held Shower,Steaming Cabinet Tender, Sock Aid,Grab Bars Near Toilet ,Grab Bars In Shower Employment Status Retired Additional Social History Comment Pt lives at [facility] with his . Pt's assists with ADLs and mobility. M1 PT/OT-IP Prior Functional Status Start: 07/07/20 13:13 Freq: NEEDED Status: Active Protocol: Document 07/07/20 11:31 AB (Rec: 07/07/20 13:31 AB [id number]) Medical Review Prior Functional Status Communication able to make needs known Mobility and Gait per spouse: she has been assisting pt with sit to stand and sometimes even during ambulation due to pt's decrease balance. pt has been using a FWW for mobility at all times. spouse stated that pt is able to do bed mobility and toileting by himself Activities of Daily Living and IADL's spouse has been assisting pt with drying off after a shower , and some dressing. Prior Functional Level (Other details) Pt and his live at [facility]. spouse stated that she has been assisting pt since pt had his CVA but lately, mobility is getting worse Social History Household Members spouse Living Arrangements Group Home Facility Number of Floors (Floors) One Floor Number of Stairs To Enter/Railing? elevator as needed Home Environment Standard Height Toilet,Walk in Shower,Built-In Shower Seat Home Equipment Front Wheel Walker,Manual Wheelchair,Hand Held Shower, Steaming Cabinet Tender,Sock Aid,Grab Bars In Shower Employment Status Retired Additional Social History Comment Pt lives at [facility] with his . Pt's assists with ADLs and mobility. M2 PT-IP Current Condition Start: 07/07/20 13:13 Freq: NEEDED Status: Active Protocol: Document 07/07/20 11:31 AB (Rec: 07/07/20 13:31 AB [id number]) Physical Therapy Current Condition Current Condition Evaluation Date 07/07/20 Treatment Diagnosis syncope; difficulty in walking Onset Date 07/06/20 Precautions Other Precautions falls; BP M3 PT-IP Subjective Start: 07/07/20 13:13 Freq: NEEDED Status: Active Protocol: Document 07/07/20 11:31 AB (Rec: 07/07/20 13:31 AB [id number]) Subjective Physical Therapy Visit Type Type Initial Evaluation Visit Start Time 11:31 Visit Stop Time 12:01 Total Visit Minutes 30 Number of RECORDS ADMINISTRATOR Visits 0 Physical Therapy Visit Comments Patient Comments pt is agreeable to do PT M4 PT-IP Mobility and Gait Start: 07/07/20 13:13 Freq: NEEDED Status: Active Protocol: Document 07/07/20 11:31 AB (Rec: 07/07/20 13:31 AB [id number]) PT-Bed Mobility Assessment Supine to Sit Supine to Sit Moderate Assistance,1 Person Assistance,Bedrails PT-Transfer Assessment Sit to and From Stand Sit to and from Stand Moderate Assistance,Maximum Assistance,1 Person Assistance ,Use of Upper Extremities Equipment Transfer Assistive Device Gait Belt,Front Wheeled Walker Orthotic/Prosthetic Devices or Brace: No Transfers Transfer Destination Chair Transfer Technique Stand Step Pivot Transfer Ability Level of Assist Moderate Assistance,Maximum Assistance,1 Person Assistance ,Use of Upper Extremities Comments Mobility Comments BP monitored. BP supine in bed: 150/85. pt completed bed mobility supine to sit mod A and cues. pt used bed rail to assist. pt was able to sit on EOB SBA. BP sittin/80. pt tolerated sitting on EOB and BP checked again after ~ 2 min: 146/90. pt completed sit to stand mod to max A and cues. pt with increase posterior trunk lean and with BLE pushing against the EOB for support. c/o dizziness and vision blurriness. BP in standin/56. pt tolerated another 2 min of standing and BP checked again: 126/61. pt agreed to sit up on chair and completed step transfer using FWW mod to max A and max cues. pt with unsteady steps during transfers. BP checked in sitting afterwards: 169/95. informed [facility] regarding pt's BP . Nurse out for lunch. positioned pt on chair. Left pt with OT. Gait Assessment Comments Gait Comments able to take steps during transfers using FWW mod to max A; did not ambulate further due to unstable BP and c/o increase dizziness. PT-Balance Assessment Sitting Balance and Reactions Static Sitting Balance Ability Good Dynamic Sitting Balance Ability Fair Standing Balance and Reactions Static Standing Balance Ability Poor Dynamic Standing Balance Ability Poor Device Used FWW M5 PT-IP Objective Assessments Start: 07/07/20 13:13 Freq: NEEDED Status: Active Protocol: Document 07/07/20 11:31 AB (Rec: 07/07/20 13:31 AB [email or web address]) Orientation Orientation/Cognition Level of Alertness Alert Orientation Name,Place,Situation Language Function Ability Hard of Hearing Safety Awareness Decreased Safety Awareness Gross Range of Motion Lower Extremity ROM Assessment Within Functional Limits Strength Lower Extremity Strength Hip 4-/5 Knee 3+/5 Muscle Tone Muscle Tone WNL Yes M6 PT-IP Treatment Start: 07/07/20 13:13 Freq: NEEDED Status: Active Protocol: Document 07/07/20 11:31 AB (Rec: 07/07/20 13:31 AB [id number]) Physical Therapy Treatment Education Education Provided Safety M7 PT-IP Assessment and Plan Start: 07/07/20 13:13 Freq: NEEDED Status: Active Protocol: Document 07/07/20 11:31 AB (Rec: 07/07/20 13:31 AB [id number]) PT Summary Assessment and Plan Potential Rehabilitation Potential Good Status of Condition at Evaluation Evolving Summary Impairments Pain,ROM,Strength,Balance, Coordination,Sensation,Tone, Cognition,Bed Mobility, Transfers,Gait,Activity Tolerance Assessment Summary pt currently requiring mod to max A with mobility with c/o dizziness and BP decreasing with upright activity affecting tolerance and mobility. Pt at this time will require SNF rehab. if pt improves with mobility and spouse will be able to safety assist pt, pt may go home when stable but will require homehealth PT. will continue to assess progress. Goals Bed Mobility Goal Standby Assistance Transfer Goal Standby Assistance Gait Goal Standby Assistance,Cane,Front Wheel Walker Gait Distance 150 Days to Meet Goals 5 Frequency of Treatment Frequency Of Treatment Once a Day Treatment Plan Physical Therapy Treatment Plan Bed Mobility Training,Transfer Training,Gait Training, Therapeutic Exercise,Balance Retraining,Discharge Planning, Hot or Cold Pack,Neuromuscular Re-ed,Coordination Retraining Recommendations To Nursing Amount of Assist Needed 2 Person Assist Discharge Recommendations PT Discharge Recommendations Home with 24/7 Assist,Home Health,SNF Rehab Other Discharge Recommendations depending on progress: SNF vs home with 24/7 and HHPT Transportation Needs at Discharge Private Vehicle,Wheelchair/ Cabulance
[2020-07-07] MEDS: ENOXAPARIN 40 MG/0.4 ML SYRINGE SUBCUT (11:33)
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
[2020-07-07] MEDS: INSULIN ASPART 100 UNIT/ML INSULN PEN SUBCUT (12:35)
--- NOTE | 2020-07-07 12:48 | PC.NURSE ---
Addendum entered by Greta Watt R.N. 07/07/20 13:17: Per SAND MILL OPERATOR report, pt's bp somewhat erratic when moving with physical therapy. Bp's captured as follows: supine 150/85 sitting 134/80, sitting after 2 min 146/90, standing 112/56, standing after 2 min 126/61. after physical therapy transfer sitting 169/95. Original Note: PATIENT CONTINUES TO REPORT DIPLOPIA AND VERTIGO. DENIES NAUSEA. GOOD APPETITE. UP IN RECLINER FOR LUNCH AFTER PHYSICAL THERAPY. SPOUSE AT BEDSIDE. MAG SLAUGHTER INFUSED THIS AM. GABRIEL.
--- NOTE | 2020-07-07 13:21 | CM.DANOTE ---
DCP Assessment: EMR reviewed: Patient is a 85 yr old male who was admitted for possible CVA vs TIA. Patient cannot have an MRI due to Pacemaker. patient currently lives with his siri at [facility]. patient is Independent for the most part with ADLs but does assist with ADLs as needed. does all the driving. Patient uses FWW for ambulation and has a walk in shower and hand rails. I: [employer] and [employer] Plan: D/C home to [facility] with when medically stable- pending PT and OT notes .. Patient is an Observation patient and does not qualify for SNF.... Patients and patients stated understanding but if patient needs HH patient and patients are open to HH services - HH vrs home will be determined after PT notes are in. If need HH f2f will be needed. Monse Kiran RN Discharge Planning/Care Management CM Discharge Assessment Start: 07/07/20 13:18 Freq: Status: Active Protocol: Document 07/07/20 13:18 HS (Rec: 07/07/20 13:21 HS [id number]) Discharge Planning Assessment Assigned Engineer Rf Deployment Monse Kiran RN DPOA/Assigned Designee Name Siri Kasper () Contact Information [phone] Advance Directives? Yes Advance Directives on File No History Provided By Patient,Significant Other Has Patient been admitted in last 30 No days? Prior Living Arrangements [place] Facility Comment patient lives at [facility] with his Household Members spouse Type of transporation used prior to Relies on Others admit Comment patients does all the driving Facility Name Admitted From: [facility] Willing to Return to Facility? Yes Independent with ADL's Yes Is patient alert and oriented? Yes Caregiver for Another No Discharge Plan Home Transportation Arrangement Spouse Referrals Initiated None needed Whiteboard Updated in Patient Room with Yes name and ext. # of Engineer Rf Deployment Review Status In Process Next Review Type Continued Stay Review
--- NOTE | 2020-07-07 18:57 | PM.HP.1 ---
History of Present Illness History of Present Illness Date Patient Seen: 07/07/20 Time Patient Seen: 07:30 Date of Onset of Symptoms: 06/30/20 Chief complaint: Dizzy, Double Vision, Headache Narrative: This very pleasant 85-year-old male with multiple medical problems presents to the emergency department with complaints of new onset diplopia, headache, dizziness and inability to walk. Patient is under the primary care of Dr. Smith is recently retired. Patient sees Dr. Arteaga seen now for cardiology and is for in the process of being referred to Neurology as well. Patient has had a stroke in October 2018 and he has had progressive worsening in his ability to walk. He has felt unsteady and he has had frequent falls. This has progressively worsened over the last year and a half. He was seen by Dr. palma now on June 29 and found to be symptomatic Rebecca orthostatic hypotensive. He was sent to the ER and given IV fluids and was started on midodrine 3 times a day. Since that time he developed the double vision as well as worsened dizziness, fatigue, unsteadiness. His evaluation in the ER showed a negative noncontrasted head CT. He had a CT angiogram which did not show evidence of acute blockage or intracranial event. Unfortunately he could not undergo an MRI MRA due to having a pacemaker. He was unable to skills instructor the ER and it was determined that he needed to be admitted for further observation and evaluation. He has never had diplopia prior. Once he was placed on the midodrine his blood pressure went up significantly 2008/ and then when he stood up it went down to 117/66. Dr. Chandler vogt was consulted and told him to stop the medication at that time. However patient continued to have symptoms. Dr. Louise vogt did not feel that the diplopia was related to the medication and in fact there was no evidence that this medication causes that. Past medical history: 1. Embolic CVA, October 2018 2. Atrial fibrillation 3. Carotid arterial disease 4. Type 2 diabetes 5. Peripheral neuropathy 6. Coronary artery disease 7. History of TIA 8. Cardiac pacemaker 9. Hyperlipidemia 10. Hypothyroidism 11. Vertigo 12. Has a history of diplopia on his outpatient medical history per Dr. Smith 13. TIA 14. Degenerative joint disease 15. BPH 16. Psoriasis 17. Orthostatic hypotension 18. Hematuria parent only his anticoagulation was stopped secondary to this. Home medications. His lists are accurate. His states that he has not been on duloxetine probably since prior to the stroke. He is taking finasteride 5 mg a day Nexium 20 mg a day meclizine as needed amiodarone 100 mg twice daily, tamsulosin 0.4 mg at night, atorvastatin 40 mg daily Past surgical history: 1. Appendectomy 2. Cardiac catheterization 3. Cardiac pacemaker placement 4. Back surgery 5. Lumbar fusion 6. He had a cardiac surgery he had LA a occluder at [facility] 7. Vasectomy Family history his mother had dementia Father had tuberculosis Social history patient is . He lives with his in assisted care facility [facility]. He just recently moved out of his home because they could not care for it. He has a daughter who is a teacher and lives in a [facility] Review of systems: He does complain of depressive symptoms. It has been very hard that he has not been able to do much and feels he is losing function and therefore enjoyment of life. He denies chest pain He denies fevers or cough or shortness of breath or chills or rashes He has had headaches. He has had diplopia. He has felt dizzy and unsteady He has not had any diarrhea or bright red blood per rectum or black tarry stools Most recent echo was 11/12/2019 showed ejection fraction 55-60% no significant change from previous study mild dyssynchronous contraction pattern Metformin recently had his dosage decreased and had his Toprol decreased. He is on levothyroxine 75 mcg a day; he is on a baby aspirin a day Patient History Medical History Anxiety (Chronic) CAD (coronary artery disease) (Chronic) DDD (degenerative disc disease), cervical (Chronic) Depression (Chronic) Diabetes (Resolved) Dyslipidemia (Chronic) Dysuria (Chronic) Elevated serum homocysteine level (Chronic) History of angina (Chronic) History of CVA (cerebrovascular accident) (Resolved) History of dizziness (Resolved) History of esophageal reflux (Resolved) History of fatigue (Resolved) History of hematuria (Resolved) Impotence (Chronic) Lumbosacral radiculopathy at L5 (Chronic) Memory deficit (Chronic) Neuropathy of both feet (Chronic) Osteoarthritis (Chronic) Pacemaker (Chronic ~2013) Paroxysmal A-fib (Chronic) 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) RBBB (Chronic) Renal insufficiency (Chronic) Sick sinus syndrome (Chronic) Sleep apnea (Chronic ~2012) Spinal stenosis in cervical region (Chronic) Spinal stenosis of lumbar region (Chronic) TIA (transient ischemic attack) (Acute) Urinary retention (Chronic) Surgical History H/O laminectomy (Resolved) H/O shoulder surgery (Resolved) H/O thumb surgery (Resolved) History of appendectomy (Resolved) History of bladder surgery (Resolved) History of cardiac cath (Resolved ~2012) History of cholecystectomy (Resolved ~2012) History of cystoscopy (Resolved) History of lumbar fusion (Resolved) History of tonsillectomy (Resolved) History of vasectomy (Resolved) Status post right foot surgery (Resolved) Family & Social History Social History: household members spouse Prior Living Arrangements Snf Facility lives independently Yes caregiver/support person No Safety & Behavioral: Feels Safe in Current Yes Environment Been Physically Hurt or No Threatened By a Person Suicidal Ideation Description None Suicide Plan Description No Plan Tobacco & Substance use: Smoking Status Never smoker alcohol intake current alcohol intake frequency holiday/special occasion Substance Use Type does not use Meds Home Medications and Allergies Home Medications Medication Instructions Recorded Confirmed Type Lantus Solostar U-100 Insulin 10 unit SUB-Q BEDTIME 03/28/18 07/06/20 History duloxetine [Cymbalta] 30 mg PO BEDTIME 03/28/18 07/06/20 History nitroglycerin 0.4 mg SL Q5-15M PRN #30 tab 06/29/18 07/06/20 Rx levothyroxine 75 mcg PO DAILY 08/27/18 07/06/20 History metformin 500 mg PO BID 08/27/18 07/06/20 History amiodarone 200 mg tablet 100 mg PO BID tab 12/24/18 07/06/20 History aspirin 81 mg tablet,delayed 81 mg PO DAILY 12/24/18 07/06/20 History release atorvastatin 80 mg tablet 20 mg PO DAILY tab 12/24/18 07/06/20 History magnesium chloride [Mag 64] 64 mg PO DAILY 01/22/19 07/06/20 History doxylamine succinate [Unisom 25 mg PO BEDTIME PRN 07/06/20 07/06/20 History (doxylamine)] finasteride 5 mg PO BEDTIME 07/06/20 07/06/20 History Allergies Allergy/AdvReac Type Severity Reaction Status Date / Time Prjiedm-Hay-Reo Reductase Allergy Intermediate MUSCLE PAIN Verified 07/03/20 09:44 Inhibitor [[id number] REDUCTASE INHIBITOR] piroxicam [PIROXICAM] Allergy Mild NAUSEA, Verified 07/03/20 09:44 VOMITING dabigatran etexilate AdvReac Hematuria Verified 07/03/20 09:44 Exam Vital Signs (past 8 hours): - 07/07/20 11:45 07/07/20 11:50 07/07/20 11:55 Temperature Pulse Rate Respiratory Rate Blood Pressure 134/80 112/56 L 126/61 Pulse Oximetry 07/07/20 12:00 07/07/20 15:37 Temperature 98.3 F 97.3 F L Pulse Rate 76 70 Respiratory Rate 16 20 Blood Pressure 169/95 H 135/73 Pulse Oximetry 97 98 Oxygen Delivery Method Room Air Oxygen Flow Rate 0 Narrative Exam Narrative: Afebrile vital signs are stable Patient is resting comfortably in hospital bed He states that he feels poorly HEENT: Pupils equal round reactive to light, extraocular muscles intact, ears unremarkable, oropharynx shows mucous membranes moist and pink Neck: Supple without adenopathy or thyromegaly or jugular venous distention or bruits Chest: Clear to auscultation without wheezes rhonchi or crackles Cor: Regular rate and rhythm without any murmur Abdomen: Positive bowel sounds, soft, nontender, nondistended Extremities: No edema, pulses intact Skin: No rashes Patient was not gotten out of bed. I did not walk him. Neurologic exam in bed shows upper extremities and bilateral lower extremities neurovascularly intact. No significant dysmetria with finger to nose. No cogwheeling Objective Labs Result Diagrams: 07/07/20 05:01 07/07/20 05:01 Labs: Laboratory Results - last 24 hr 07/06/20 07/06/20 07/06/20 18:45 18:45 19:58 WBC RBC Hgb Hct MCV MCH MCHC RDW Plt Count Neut % (Auto) Lymph % (Auto) Russell % (Auto) Eos % (Auto) Baso % (Auto) Neut # (Auto) Lymph # (Auto) Russell # (Auto) Eos # (Auto) Baso # (Auto) PT 12.7 INR 1.1 APTT 33 Sodium 133 L Potassium 4.6 Chloride 97 L Carbon Dioxide 26 BUN 18 Creatinine 1.10 Estimated GFR > 60.0 BUN/Creatinine Ratio 16.4 Glucose 132 H Calcium 9.5 Magnesium Total Bilirubin AST ALT Alkaline Phosphatase Total Protein Albumin Globulin Albumin/Globulin Ratio TSH COVID-19 PCR Negative 07/07/20 07/07/20 07/07/20 05:01 05:01 05:01 WBC 5.7 RBC 3.70 L Hgb 12.6 L Hct 36.1 L MCV 97.7 MCH 34.1 H MCHC 34.9 RDW 12.8 Plt Count 199 Neut % (Auto) 59.8 Lymph % (Auto) 27.7 Russell % (Auto) 10.5 Eos % (Auto) 1.3 L Baso % (Auto) 0.7 Neut # (Auto) 3400 Lymph # (Auto) 1600 Russell # (Auto) 600 Eos # (Auto) 100 Baso # (Auto) 0 PT INR APTT Sodium Potassium Chloride Carbon Dioxide BUN Creatinine Estimated GFR BUN/Creatinine Ratio Glucose Calcium Magnesium 1.5 L Total Bilirubin AST ALT Alkaline Phosphatase Total Protein Albumin Globulin Albumin/Globulin Ratio TSH 3.29 COVID-19 PCR 07/07/20 05:01 WBC RBC Hgb Hct MCV MCH MCHC RDW Plt Count Neut % (Auto) Lymph % (Auto) Russell % (Auto) Eos % (Auto) Baso % (Auto) Neut # (Auto) Lymph # (Auto) Russell # (Auto) Eos # (Auto) Baso # (Auto) PT INR APTT Sodium 135 L Potassium 4.0 Chloride 103 Carbon Dioxide 28 BUN 16 Creatinine 1.10 Estimated GFR > 60.0 BUN/Creatinine Ratio 14.5 Glucose 114 H Calcium 9.1 Magnesium Total Bilirubin 0.6 AST 20 ALT 18 Alkaline Phosphatase 59 Total Protein 6.1 L Albumin 3.6 Globulin 2.5 Albumin/Globulin Ratio 1.4 TSH COVID-19 PCR Assessment & Plan Assessment & Plan narrative: A total of 70 minutes was spent with the patient on 2 separate occasions today meeting with him his reviewing his chart. 85-year-old gentleman admitted for diplopia, headache, dizziness for possible cerebellar CVA. Reviewed with patient his exam as well as CT angiogram not revealing any new abnormalities. Discussed at length with he and his that it may be that he has had progressive decline in function from his previous stroke and he may need more rigorous physical therapy. I think certainly is admitted during complicated and was making him feel poorly and so my hopes are that stopping the medication and doing aggressive physical therapy and occupational therapy that his symptoms will improve. We discussed possibility of skilled care facility versus home health with physical therapy. We will continue to treat his other risk factors. Assessment 2. Hyperlipidemia Plan: Continue on atorvastatin Assessment 3. Suspect low-grade depression Plan: Will start low-dose sertraline Assessment 4. Orthostatic hypotensive very difficult to control with side effects on the midodrine Plan: Will discuss with Cardiology and see what the next step would be. Assessment 5. Atrial fibrillation not on anticoagulation due to fall risk but on amiodarone treatment for a little over a year. I do not think the amiodarone is causing his symptoms but we will discuss with Cardiology. He was advised to stop Eliquis after he had an LAA0 done at [facility] 01/07/2019. Assessment 6. Type 2 diabetes Plan: Will do CBG q.a.c. and q.h.s. will consider holding metformin and just giving him Lantus see if possibly this is contributing to his symptoms of feeling poorly. He has been on this for quite some time but it may be diet is now developing a sensitivity to this given all his other medical problems and his hemoglobin A1c last was 6.2 which is I think a little too tightly controlled and in fact Dr. Smith decreased his metformin at his last visit in March Assessment 7 DVT prophylaxis plan we will give Lovenox 8. History of GERD Plan will place on proton pump inhibitor 9. BPH Plan: Continue on finasteride 10. Hypothyroidism Plan: Continue same thyroid medication Assessment 11. Infectious disease no current issues Plan will follow Had a lengthy discussion with he and his regarding code status and he prefers DNR COVID-19 COVID-19 status: Negative Result date/Date tested (Pos, Neg/Pending): 07/06/20 Quality VTE Deep Vein Thrombosis/Pulmonary Embolism Present on Admission: No
[2020-07-07] MEDS: ATORVASTATIN 20 MG TABLET PO (20:07)
[2020-07-07] MEDS: FINASTERIDE 5 MG TABLET PO (20:08)
[2020-07-07] MEDS: SERTRALINE 50 MG TABLET 12.5 MG PO (20:08)
[2020-07-08 00:30] VITALS: BP 156/81; PULSE 69; RESP 18; TEMP 36.2; O2SAT 97
[2020-07-08 04:27] VITALS: BP 144/76; PULSE 72; RESP 18; TEMP 36.2; O2SAT 99
[2020-07-08] MEDS: LEVOTHYROXINE 75 MCG TABLET PO (05:09)
[2020-07-08 05:53] LABS: Add Manual Diff / Slide Review NO; Basophils Absolute Auto 0 /uL (0-100); Basophils Percent Auto 0.7 % (0-2); Eosinophils Absolute Auto 100 /uL (0-450); Eosinophils Percent Auto 1.7 % (2-4); Hematocrit 37.7 % (41-53); Lymphocytes Absolute Auto 1600 /uL (1100-4500); Lymphocytes Percent Auto 26.3 % (25-40); Mean Corpuscular HGB Conc 34.5 % (30-36); Mean Corpuscular Volume 98.5 fL (80-100); Monocytes Absolute Auto 600 /uL (0-900); Monocytes Percent Auto 10.1 % (3-14); Neutrophils Absolute Auto 3700 /uL (1500-7000); Neutrophils Percent Auto 61.2 % (50-75); Platelet Count 192 X10^3/uL (150-400); Red Blood Cell Count 3.82 X10^6/uL (4.5-5.9); Red Cell Distribution Width 12.8 % (11.6-14.8)
[2020-07-08 06:00] LABS: Alanine Aminotransferase 19 IU/L (<50); Albumin 3.9 g/dL (3.5-5.0); Albumin Globulin Ratio 1.6 (1.0-2.8); Alkaline Phosphatase 63 U/L (38-126); Aspartate Aminotransferase 21 IU/L (17-59); BUN Creatinine Ratio 14.6 (6-22); Bilirubin Total 0.7 mg/dL (0.2-1.3); Blood Urea Nitrogen 15 mg/dL (9-20); Calcium 9.3 mg/dL (8.4-10.2); Carbon Dioxide 25 mmol/L (22-32); Chloride 101 mmol/L (98-107); Estimated Glomerular Filt Rate > 60.0 mL/min (>60); Globulin 2.5 g/dL (1.7-4.1); Glucose 148 mg/dL (80-110); HEMOLYSIS < 15 (0-50); Potassium 3.8 mmol/L (3.4-5.1); Sodium 136 mmol/L (137-145); Total Protein 6.4 g/dL (6.3-8.2)
[2020-07-08 08:30] VITALS: BP 154/94; PULSE 71; RESP 16; TEMP 36.3; O2SAT 98
[2020-07-08] MEDS: AMIODARONE 100 MG TABLET PO ×2 (10:03→20:46)
[2020-07-08] MEDS: ASPIRIN EC 81 MG TABLET PO (10:03)
[2020-07-08] MEDS: ENOXAPARIN 40 MG/0.4 ML SYRINGE SUBCUT (10:03)
[2020-07-08] MEDS: METFORMIN HCL 500 MG TABLET PO ×2 (10:03→17:32)
--- NOTE | 2020-07-08 10:13 | OT.IP.TRT ---
Occupational Therapy Treatment Note M2 OT-IP Current Condition Start: 07/07/20 12:23 Freq: Status: Active Protocol: Document 07/07/20 12:24 CGR (Rec: 07/07/20 12:50 CGR [id number]) Occupational Therapy Current Condition Current Condition Evaluation Date 07/07/20 Treatment Diagnosis dizziness and fatigue Diagnosis Onset Date 07/06/20 Post Operative Precautions Other Precautions Pt has significantly fluctuating BP. M3 OT- IP Subjective and Pain Start: 07/07/20 12:23 Freq: Status: Active Protocol: Document 07/08/20 10:17 CCC (Rec: 07/08/20 10:40 [facility] [id number]) OT- Subjective Occupational Therapy Visit Type Type Treatment Note Visit Start Time 09:37 Visit Stop Time 10:15 Total Visit Minutes 38 Occupational Therapy Visit Comments Patient Comments Pt agreed to get up for OT treatment. Pt's in the room during the session. Patient/Caregiver Goals Pt states wants to do what is best for him. OT Pain Assessment Pain When Pain Assessed At Rest Pain Present Pain Present Denied Pain M4 OT- IP ADL's Start: 07/07/20 12:23 Freq: Status: Active Protocol: Document 07/08/20 10:17 CCC (Rec: 07/08/20 10:40 [facility] [id number]) OT [id number] Comments OT Self-Feeding Comments NOt at meal time. OT ADL-Grooming General Evaluation Grooming Ability Standby Assistance Comments OT Grooming Comments Pt able to wash his hands while at the sink, after initial cues to point out where the soap dispenser was located at. OT ADL-Dressing Comments OT Dressing Comments NOt performed. OT ADL-Toileting Comments OT Toileting Comments Pt able to urinate while standing , however determined and agrees would be safer for pt to sit while urinating from now on as pt is unsteady on his feet. Also spoke of use of urinal at night as pt's states she is a sound sleeper or make sure the pt wakes his up every time he has to go to the bathroom. OT ADL-Bathing Comments OT Bathing Comments TO attempt tomorrow with pt's . Suggested would be best to have a shower chair and HHSP. M5 OT- IP IADL's Start: 07/07/20 12:23 Freq: Status: Active Protocol: Document 07/07/20 12:24 CGR (Rec: 07/07/20 12:50 CGR [id number]) OT-Instrumental Activities of Daily Living Deficits IADL Deficits Identified Deficits Home Safety Awareness Awareness of Need for Assistance at Home Good Awareness Ability to Problem Solve Emergency Able to Problem Solve Situations Home Safety Comments Pt appears to understand his need for assist. Money Management Money Management Caregiver Provides Assistance Meal Preparation Meal Preparation Caregiver Provides Assist Pattern Maker Programer Pattern Maker Programer Caregiver Provides Assist Driving Driving Comments Pt does not drive. M6 OT- IP Functional Cognition Start: 07/07/20 12:23 Freq: Status: Active Protocol: Document 07/08/20 10:17 [facility] (Rec: 07/08/20 10:40 [facility] [id number]) Cognitive Factors Limiting Selfcare Function Cognitive Ability Level of Alertness Alert Attention Span Ability Capable of Focused Attention, Capable of Sustained Attention Ability to Follow Commands Able to Follow One Step Commands with Increased Time, Able to Follow One Step Commands with Repetition Memory Description Short Term Impaired Safety Awareness Underestimates Need for Assistance Executive Function Ability Unable to Filter Distractions, Unable to Remember Details Cognitive Comments Cognitive Assessment Comments Pt's states prior after previous CVA pt has short term memory issues and she has been taking care of all the driving, medications, and finance needs. Pt needing safety cues for FWW , cues to get closer to the surface and make sure his legs at touching the back of the surface to sit down to prior to sitting. VC to focus of one thing at a time. Pt easily gets distracted and cues to focus on one task at a time. M7 OT- IP Mobility and Balance Start: 07/07/20 12:23 Freq: Status: Active Protocol: Document 07/08/20 10:17 [facility] (Rec: 07/08/20 10:40 [facility] [id number]) OT- Bed Mobility Assessment Supine to Sit Supine to Sit Assist Standby Assistance Scooting Scooting to Edge of Bed Standby Assistance OT-Transfer Assessment Sit to and From Stand Sit to and from Stand Contact Guard Assistance,1 Person Assistance Transfers Transfer Ability Contact Guard Assistance,1 Person Assistance Technique Transfer Destination Bed,Chair Transfer Technique Stand Step Pivot Devices Transfer Assistive Devices Gait Belt,Front Wheeled Walker Comments Mobility Comments Pt tends to lean to the left and noted 3 losses of balance and needing DONNELL- MODA to correct his balance. Pt needing cues to keep the FWW closer to him. OT- Gait Assessment Comments Gait Ability Comments CGA to DONNELL with FWW. Pt is more unsteady when backing up and turning. Pt and given information regarding fall prevents and thing to look at at home to help prevent falls. OT- Balance Assessment Sitting Balance and Reactions Static Sitting Balance Ability Good Standing Balance and Reactions Static Standing Balance Ability Poor Dynamic Standing Balance Ability Poor M8 OT- IP Objective Assessments Start: 07/07/20 12:23 Freq: Status: Active Protocol: Document 07/08/20 10:17 [facility] (Rec: 07/08/20 10:40 [facility] [id number]) OT- Coordination Assessment Comments Coordination Comments Impaired for finger to nose for for right and left hands. OT Sensation Assessment Comments Summary Comments Decreased proprioception and kinesthesia for bilateral wrist and hands. M9 OT- IP Assessment and Plan Start: 07/07/20 12:23 Freq: Status: Active Protocol: Document 07/08/20 10:17 [facility] (Rec: 07/08/20 10:40 [facility] [id number]) OT Summary Assessment and Plan Potential Rehabilitation Potential Good Analytic Complexity at Evaluation Low Summary OT Impairments Balance,Coordination, Functional Mobility,Grooming, Dressing,Toileting,Bathing, Toilet Transfers,Shower Transfers,Activity Tolerance Progress Towards Goals Progressing Toward Goals Assessment Summary Pt improvement with bed mobility and transfers today, however still very unsteady on his feet and needing DONNELL to MODA to help correct his balance at times. Pt is a very high fall risk. Initiated educated his on delilah/doff gait belt and would be best to use gait best to hold pt at all times as pt has frequent loss of balance. Pt would benefit from skilled rehab, however pending insurance and approval, worst case to go home with with 10/04 supervision /assist assist and home health. Goals Grooming Goal Independent Dressing Goal Minimal Assistance Toileting Goal Independent Bathing Goal Minimal Assistance Toilet Transfer Goal Independent Shower Transfer Goal Independent Days to Meet Goals 4 Frequency of Treatment Frequency Of Treatment Once a Day Treatment Plan OT Treatment Plan ADL Training,Functional Cognition Training,Functional Mobility,Patient/Family Education,Discharge Planning Other Treatment Recommendations and Next shower if BP allows. Treatment Focus Discharge Recommendations OT Discharge Recommendations Home with 24/7 Assist,SNF Rehab Transportation Needs at Discharge Private Vehicle
--- NOTE | 2020-07-08 10:50 | PT.IPTN ---
Physical Therapy Treatment Note M2 PT-IP Current Condition Start: 07/07/20 13:13 Freq: NEEDED Status: Active Protocol: Document 07/07/20 11:31 AB (Rec: 07/07/20 13:31 AB [email or web address]) Physical Therapy Current Condition Current Condition Evaluation Date 07/07/20 Treatment Diagnosis syncope; difficulty in walking Onset Date 07/06/20 Precautions Other Precautions falls; BP M3 PT-IP Subjective Start: 07/07/20 13:13 Freq: NEEDED Status: Active Protocol: Document 07/08/20 10:50 AB (Rec: 07/08/20 12:10 AB [email or web address]) Subjective Physical Therapy Visit Type Type Treatment Note Visit Start Time 10:50 Visit Stop Time 11:40 Total Visit Minutes 50 Number of KITCHEN HAND Visits 0 Physical Therapy Visit Comments Patient Comments pt is agreeable to do PT; spouse in room with pt Therapy Pain Assessment Pain Present Pain Present Denied Pain M4 PT-IP Mobility and Gait Start: 07/07/20 13:13 Freq: NEEDED Status: Active Protocol: Document 07/08/20 10:50 AB (Rec: 07/08/20 12:10 AB [email or web address]) PT-Bed Mobility Assessment Supine to Sit Supine to Sit Standby Assistance Sit to Supine Sit to Supine Standby Assistance Scooting Scooting to Edge of Bed Standby Assistance PT-Transfer Assessment Sit to and From Stand Sit to and from Stand Contact Guard Assistance,1 Person Assistance,Use of Upper Extremities Equipment Transfer Assistive Device Gait Belt,Front Wheeled Walker Orthotic/Prosthetic Devices or Brace: No Transfers Transfer Destination Bed,Chair Transfer Technique Stand Step Pivot Transfer Ability Level of Assist Contact Guard Assistance,1 Person Assistance,Use of Upper Extremities Comments Mobility Comments BP monitored. BP in supine: 149/88. pt completed supine to sit SBA and cues. required increase time to complete task. pt without complaints of dizziness. BP in sittin/88. caregiver training conducted. educated pt and spouse on sit<>stand technique . pt completed sit to stand CGA with cues. pt was able to stand using FWW for support CGA. BP in standin/67. pt remained standing for ~ 1- 2 and tried checking BP again but pt stated that he has to sit down while obtaining BP: 119/56. pt rested sitting on EOB. BP checked again in sitting 151/97. Spouse was able to put safety belt on pt. educated on how to assist pt with use of safety belt and how to cue pt. pt completed sit <>stand again with spouse assisting and providing cued and pt was able to complete step transfer to chair using FWW CGA. pt tends to have FWW too far forward and need cues for safety. educated pt on how to use FWW for ambulation and proper posture. pt c/o dizziness after transfers. BP checked: 150/87. pt completed sit <>stand from chair CGA and ambulated in room using FWW ~ 25 ft CGA. pt requested to go back to bed . completed sit to supine SBA . pt required assist with repositioning in bed and showed spouse on how to assist pt safely as spouse tends to pull on pt's UE. positioned pt in bed. call light and table placed within reach. Gait Assessment Gait Gait Assistance Required: Contact Guard Assist Distance (Feet) 25 Able to Maintain Weight Bearing Status Yes During Gait Assistive Devices Assistive Device Gait Belt,Front Wheeled Walker Orthotic/Prosthetic Devices or Brace: No Gait Deviations General Gait Pattern Antalgic,Decreased Stride Length,Decreased Feet Clearance Factors Limiting Gait Function Factors Limiting Gait Function Decreased Activity Tolerance, Decreased Strength,Poor Balance,Poor Safety Awareness Comments Gait Comments pls refer to mobility section for details M5 PT-IP Objective Assessments Start: 07/07/20 13:13 Freq: NEEDED Status: Active Protocol: Document 07/07/20 11:31 AB (Rec: 07/07/20 13:31 AB [email or web address]) Orientation Orientation/Cognition Level of Alertness Alert Orientation Name,Place,Situation Language Function Ability Hard of Hearing Safety Awareness Decreased Safety Awareness Gross Range of Motion Lower Extremity ROM Assessment Within Functional Limits Strength Lower Extremity Strength Hip 4-/5 Knee 3+/5 Muscle Tone Muscle Tone WNL Yes M6 PT-IP Treatment Start: 07/07/20 13:13 Freq: NEEDED Status: Active Protocol: Document 07/08/20 10:50 AB (Rec: 07/08/20 12:10 AB [email or web address]) Physical Therapy Treatment Education Education Provided Safety M7 PT-IP Assessment and Plan Start: 07/07/20 13:13 Freq: NEEDED Status: Active Protocol: Document 07/08/20 10:50 AB (Rec: 07/08/20 12:10 AB [email or web address]) PT Summary Assessment and Plan Potential Rehabilitation Potential Good Summary Impairments Strength,Balance,Cognition,Bed Mobility,Transfers,Gait, Activity Tolerance Progress Towards Goals Slow Progress due to Medical Issues Assessment Summary pt progressing slowly with mobility and continues to have orthostatic BP with c/o dizziness with standing. Spouse has been assisting pt at home and caregiver training inititated today. pt also has a w/c at home and spouse stated that they are also ordering an electric scooter. educated pt and spouse regarding safety and also recommendation for homehealth PT. Pt is tolerating more activity today but continues to be limited with his orthostatic BP being his main limiting factor. Goals Bed Mobility Goal Standby Assistance Transfer Goal Standby Assistance Gait Goal Standby Assistance,Cane,Front Wheel Walker Gait Distance 150 Days to Meet Goals 5 Frequency of Treatment Frequency Of Treatment Once a Day Treatment Plan Physical Therapy Treatment Plan Bed Mobility Training,Transfer Training,Gait Training, Therapeutic Exercise,Balance Retraining,Discharge Planning, Hot or Cold Pack,Neuromuscular Re-ed,Coordination Retraining Recommendations To Nursing Amount of Assist Needed 1 Person Assist Discharge Recommendations PT Discharge Recommendations Home with 10/04 Assist,Home Health Transportation Needs at Discharge Private Vehicle
[2020-07-08 11:23] VITALS: BP 150/87; PULSE 70; RESP 16; TEMP 37.3; O2SAT 98
--- NOTE | 2020-07-08 13:48 | P.PN_ITS ---
Subjective Subjective Date Patient Seen: 07/08/20 Time Patient Seen: 13:48 Interval history: Patient is feeling better today. He denies diplopia or visual changes. He still is dizzy when he gets out of bed but did better with occupational therapy and physical therapy today. He still requires significant assistance. He is still unsafe to toilet and get out of bed by himself. Or he denies shortness of breath or chest pain. Still lightheaded and dizzy with mo vement. He is not having nausea or vomiting. He is not having any specific neurologic symptoms other than the dizziness with standing and difficulty with balance. He is tolerating p.o. without difficulty. He is urinating and stooling without difficulty. Review of systems is negative other than above Exam Vital Signs (past 8 hours): - 07/08/20 08:30 07/08/20 11:23 Temperature 97.3 F L 99.1 F Pulse Rate 71 70 Respiratory Rate 16 16 Blood Pressure 154/94 H 150/87 H Pulse Oximetry 98 98 Oxygen Delivery Method Room Air Oxygen Flow Rate 0 Narrative Exam Narrative: Afebrile, vital signs are stable. There is less lability of his blood pressure. He still has orthostatic hypotension with standing but it is less significant because is overall blood pressures have decreased and more stable around the 140s to 150s over 80s Color is improved Alert and oriented x3 HEENT unremarkable Neck: Supple without adenopathy Chest: Clear to auscultation without wheezes rhonchi or crackles Cor: Regular rate and rhythm at a well controlled rate with distant S1-S2 Abdomen: Positive bowel sounds x4, nontender Extremities: No edema, pulses intact Objective Labs Result Diagrams: 07/08/20 05:29 07/08/20 05:29 Labs: Laboratory Results - last 24 hr 07/08/20 07/08/20 05:29 05:29 WBC 6.0 RBC 3.82 L Hgb 13.0 L Hct 37.7 L MCV 98.5 MCH 34.0 MCHC 34.5 RDW 12.8 Plt Count 192 Neut % (Auto) 61.2 Lymph % (Auto) 26.3 [place] % (Auto) 10.1 Eos % (Auto) 1.7 L Baso % (Auto) 0.7 Neut # (Auto) 3700 Lymph # (Auto) 1600 [place] # (Auto) 600 Eos # (Auto) 100 Baso # (Auto) 0 Sodium 136 L Potassium 3.8 Chloride 101 Carbon Dioxide 25 BUN 15 Creatinine 1.03 Estimated GFR > 60.0 BUN/Creatinine Ratio 14.6 Glucose 148 H Calcium 9.3 Total Bilirubin 0.7 AST 21 ALT 19 Alkaline Phosphatase 63 Total Protein 6.4 Albumin 3.9 Globulin 2.5 Albumin/Globulin Ratio 1.6 Assessment & Plan Assessment & Plan narrative: 85-year-old male admitted for dizziness, diplopia and possible CVA Assessment 1. 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 We are unable to do MRI. He is not having any focal residual neurologic symptoms other than dizziness. He is improving with stopping the midodrine and with his blood pressure improving. He is improving with PT and OT. Plan: Continue with PT and OT Assessment 2. Autonomic dysfunction causing orthostatic hypotension and frequent falls and inability to mobilize adequately Plan: Discussed the case with Dr. Arteaga who is his primary pathology manager. He was started on midodrine to help with his orthostatic hypotension which caused significant hypertension and actually pronounced is orthostatic hypotension which resulted in hospitalization. He has now been off the midodrine and I think is improving secondary to this. We discussed other options and Dr. Arteaga suggested that the other option would be a trial of Florinef. Due to ray ambrocio improving and his significant reaction to the midodrine I am going to hold off on starting this. We also discussed other possible cardiac etiologies for these symptoms and the recent echo in October of 2019 and he did not feel that there was any thing else from a cardiology standpoint that we could do. He did want him to be evaluated [facility] to ensure that he does not have Parkinson's which often times the autonomic dysfunction goes hand in hand with this. Continue with PT and OT Assessment 3. Type 2 diabetes not on Lantus which he takes at home but well controlled blood sugars Plan: Continue on the same metformin and continue monitoring sugars and will likely go home without the Lantus Assessment number for atrial fibrillation paroxysmal. Plan: He will continue on the low-dose amiodarone. Discussed with Dr. yoan acevedo's this is contributing possibly to his symptoms but he did not think this affected his blood pressure nor the double vision nor his other symptoms. We will continue for now. Assessment 5. BPH without symptoms Plan: Continue outpatient treatment Assessment 6. Low-grade depression previously on Cymbalta Plan: Just started sertraline yesterday we will continue with the same dose. Assessment 7. Hypo magnesemia Plan: Will start oral magnesium. Will recheck magnesium level tomorrow Assessment 8. Hypothyroidism Plan: Continue outpatient levothyroxine Assessment 9. Coronary artery disease without current symptoms Plan: Will continue to follow Assessment 10. DVT prophylaxis Plan: Continue with Lovenox Code status is DNR. Discussed with with both patient and his . Quality VTE Deep Vein Thrombosis/Pulmonary Embolism Present on Admission: No
--- NOTE | 2020-07-08 14:02 | CM.DPNOTE ---
Addendum entered by JUDE Sheffield 07/08/20 14:06: Reviewed PT note, much improvement from yesterday- recommending home w/ 10/04 assist and HH PT Original Note: DCP Cont Discussion w/Dr Howard; patient is improving functionally and may be ready to DC or Monday. F2F signed for HH This TAX ANALYST following closely and will review DCP w/spouse. OT recommending SNF, if home 10/04 supervision and HH is recommended. JW
[2020-07-08 15:19] VITALS: BP 160/82; PULSE 70; RESP 18; TEMP 36.8; O2SAT 99
[2020-07-08 19:21] VITALS: BP 149/83; PULSE 70; RESP 18; TEMP 36.6; O2SAT 97
[2020-07-08] MEDS: ATORVASTATIN 20 MG TABLET PO (20:46)
[2020-07-08] MEDS: SERTRALINE 50 MG TABLET 12.5 MG PO (20:46)
[2020-07-08] MEDS: FINASTERIDE 5 MG TABLET PO (20:46)
[2020-07-09] VITALS (7 sets, daily range): BP systolic 123–185; BP diastolic 69–98; PULSE 69–92; RESP 16–20; TEMP 36.2–36.8; O2SAT 96–98
[2020-07-09] MEDS: SODIUM CHLORIDE 0.9% FLUSH 10 ML IV ×3 (00:02→21:31)
--- NOTE | 2020-07-09 04:59 | PC.NURSE ---
Pt BP = 148/70, HR= 71, other VSS. A and O x 4, forgetful occ throughout noc shift. Pt able to void in urinal and BR. NSR 1 d AV block, on tele. LS clear. Last BM 07/08/2020. Pt able to sleep most of noc shift. Eating and drinking. SCDs on.
[2020-07-09 05:34] LABS: Add Manual Diff / Slide Review NO; Basophils Absolute Auto 0 /uL (0-100); Basophils Percent Auto 0.7 % (0-2); Eosinophils Absolute Auto 100 /uL (0-450); Eosinophils Percent Auto 1.9 % (2-4); Hemoglobin 13.3 g/dL (13.5-17.5); Lymphocytes Absolute Auto 1600 /uL (1100-4500); Lymphocytes Percent Auto 24.7 % (25-40); Mean Corpuscular HGB Conc 34.9 % (30-36); Mean Corpuscular Hemoglobin 34.2 PG (26-34); Mean Corpuscular Volume 97.9 fL (80-100); Monocytes Absolute Auto 700 /uL (0-900); Monocytes Percent Auto 10.1 % (3-14); Neutrophils Absolute Auto 4100 /uL (1500-7000); Neutrophils Percent Auto 62.6 % (50-75); Platelet Count 208 X10^3/uL (150-400); Red Blood Cell Count 3.88 X10^6/uL (4.5-5.9); Red Cell Distribution Width 12.6 % (11.6-14.8); White Blood Cell Count 6.5 X10^3/uL (4.5-11.0)
[2020-07-09 05:45] LABS: Magnesium 1.7 mg/dL (1.6-2.3)
[2020-07-09 05:46] LABS: Alanine Aminotransferase 20 IU/L (<50); Albumin 3.9 g/dL (3.5-5.0); Albumin Globulin Ratio 1.6 (1.0-2.8); Alkaline Phosphatase 59 U/L (38-126); Aspartate Aminotransferase 21 IU/L (17-59); Bilirubin Total 0.6 mg/dL (0.2-1.3); Blood Urea Nitrogen 19 mg/dL (9-20); Calcium 9.2 mg/dL (8.4-10.2); Carbon Dioxide 26 mmol/L (22-32); Chloride 102 mmol/L (98-107); Estimated Glomerular Filt Rate 58.1 mL/min (>60); Globulin 2.5 g/dL (1.7-4.1); Glucose 147 mg/dL (80-110); HEMOLYSIS < 15 (0-50); Potassium 4.5 mmol/L (3.4-5.1); Sodium 136 mmol/L (137-145); Total Protein 6.4 g/dL (6.3-8.2)
--- NOTE | 2020-07-09 08:03 | PM.PN.1 ---
Subjective Subjective Date Patient Seen: 07/09/20 Time Patient Seen: 08:03 Interval history: Patient is feeling well this morning. Denies any pain. Dizziness is improved. No diplopia or visual changes. Has been participating in therapy sessions. Still needs assistance with ambulation due to being lightheaded and dizzy with movement. Had 1 episode of dry emesis while using the bathroom last night, momentary. Exam Vital Signs (past 8 hours): - 07/09/20 00:35 07/09/20 00:58 07/09/20 04:36 Temperature 97.7 F 97.4 F L Pulse Rate 69 71 70 Respiratory Rate 20 18 18 Blood Pressure 185/98 H 148/70 H 133/83 Pulse Oximetry 96 Oxygen Delivery Method Room Air Oxygen Flow Rate 0 Narrative Exam Narrative: GENERAL: Alert and oriented, appearing stated age and in no acute distress. HEENT: Head normocephalic/atraumatic. Pupils equal, round, and reactive to light and accomodation. Extraocular muscles intact. Tympanic membranes clear. Nasal mucosa moist, septum midline. Oral mucosa moist, no lesions. Neck soft and supple, no lymphadenopathy. LUNGS: Clear to ausculation bilaterally, no wheezes, rhonchi or rales. CV: Normal S1 and S2 with regular rate and rhythm, no audible murmurs, rubs or gallops. ABDOMEN: Soft, non-tender, non-distended, no organomegaly. Positive bowel sounds. EXTREMITIES: No clubbing, cyanosis, or edema. NEURO: Cranial nerves II through XII grossly intact, no focal deficits. PSYCH: Alert and oriented x 3. SKIN: No concerning lesions. Objective Labs Result Diagrams: 07/09/20 05:12 07/09/20 05:12 Labs: Laboratory Results - last 24 hr 07/09/20 07/09/20 07/09/20 05:12 05:12 05:12 WBC 6.5 RBC 3.88 L Hgb 13.3 L Hct 38.0 L MCV 97.9 MCH 34.2 H MCHC 34.9 RDW 12.6 Plt Count 208 Neut % (Auto) 62.6 Lymph % (Auto) 24.7 L [place] % (Auto) 10.1 Eos % (Auto) 1.9 L Baso % (Auto) 0.7 Neut # (Auto) 4100 Lymph # (Auto) 1600 [place] # (Auto) 700 Eos # (Auto) 100 Baso # (Auto) 0 Sodium 136 L Potassium 4.5 Chloride 102 Carbon Dioxide 26 BUN 19 Creatinine 1.19 Estimated GFR 58.1 L BUN/Creatinine Ratio 16.0 Glucose 147 H Calcium 9.2 Magnesium 1.7 Total Bilirubin 0.6 AST 21 ALT 20 Alkaline Phosphatase 59 Total Protein 6.4 Albumin 3.9 Globulin 2.5 Albumin/Globulin Ratio 1.6 Assessment & Plan Assessment & Plan narrative: 85-year-old male admitted for dizziness, diplopia and possible CVA, HD#2 Assessment 1. 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 We are unable to do MRI. He is not having any focal residual neurologic symptoms other than dizziness. He is improving with stopping the midodrine and with his blood pressure improving. He is improving with PT and OT. Plan: Continue with PT and OT Assessment 2. Autonomic dysfunction causing orthostatic hypotension and frequent falls and inability to mobilize adequately Plan: Dr. Arteaga consulting. Plan for outpatient neurology consult to assess for Parkinson's disease. Continue with PT and OT Assessment 3. Type 2 diabetes not on Lantus which he takes at home but well controlled blood sugars Plan: Continue on the same metformin and continue monitoring sugars and will likely go home without the Lantus Assessment 4. Atrial fibrillation, paroxysmal. Plan: He will continue on the low-dose amiodarone. Assessment 5. BPH without symptoms Plan: Continue outpatient treatment Assessment 6. Low-grade depression previously on Cymbalta Plan: Just started sertraline as an inpatient, we will continue with the same dose. Assessment 7. Hypomagnesemia, improving Plan: Continue oral magnesium. Will recheck magnesium level again tomorrow. Assessment 8. Hypothyroidism Plan: Continue outpatient levothyroxine Assessment 9. Coronary artery disease without current symptoms Plan: Will continue to follow Assessment 10. DVT prophylaxis Plan: Continue with Lovenox Code status is DNR. Discussed with with both patient and his . Quality VTE Deep Vein Thrombosis/Pulmonary Embolism Present on Admission: No
[2020-07-09] MEDS: ASPIRIN EC 81 MG TABLET PO (10:00)
[2020-07-09] MEDS: MAGNESIUM OXIDE 400 MG TABLET PO (10:00)
[2020-07-09] MEDS: INSULIN ASPART 100 UNIT/ML INSULN PEN SUBCUT ×2 (10:01→12:05)
[2020-07-09] MEDS: LEVOTHYROXINE 75 MCG TABLET PO (10:01)
[2020-07-09] MEDS: AMIODARONE 100 MG TABLET PO ×2 (10:01→20:33)
[2020-07-09] MEDS: ENOXAPARIN 40 MG/0.4 ML SYRINGE SUBCUT (10:02)
[2020-07-09] MEDS: METFORMIN HCL 500 MG TABLET PO ×2 (10:03→17:13)
--- NOTE | 2020-07-09 10:54 | OT.IP.TRT ---
Occupational Therapy Treatment Note M2 OT-IP Current Condition Start: 07/07/20 12:23 Freq: Status: Active Protocol: Document 07/07/20 12:24 CGR (Rec: 07/07/20 12:50 CGR [id number]) Occupational Therapy Current Condition Current Condition Evaluation Date 07/07/20 Treatment Diagnosis dizziness and fatigue Diagnosis Onset Date 07/06/20 Post Operative Precautions Other Precautions Pt has significantly fluctuating BP. M3 OT- IP Subjective and Pain Start: 07/07/20 12:23 Freq: Status: Active Protocol: Document 07/09/20 12:00 [facility] (Rec: 07/09/20 12:13 [facility] [id number]) OT- Subjective Occupational Therapy Visit Type Type Treatment Note Visit Start Time 09:56 Visit Stop Time 10:54 Total Visit Minutes 58 Occupational Therapy Visit Comments Patient Comments Pt agreed to get up for a shower and pt's present for caregiver training. Patient/Caregiver Goals To go home. OT Pain Assessment Pain When Pain Assessed At Rest Pain Present Pain Present Denied Pain M4 OT- IP ADL's Start: 07/07/20 12:23 Freq: Status: Active Protocol: Document 07/09/20 12:00 [facility] (Rec: 07/09/20 12:13 [facility] [id number]) OT [id number] Comments OT Self-Feeding Comments NOt at meal time. OT ADL-Dressing General Eval Lower Body Dressing Ability Maximum Assistance Areas Needing Assistance Underpants/Brief,Socks,Support Stockings Comments OT Dressing Comments Able to educated pt's how to best assist pt for LB dressing via having good body die maker, use of gloves to assist with compression stocking and technique to turn the stocking inside out first and pull up over his heel . Pt's able to show/ demonstrate good understanding and safety. OT ADL-Toileting General Evaluation Areas Needing Assistance Manage Clothing Comments OT Toileting Comments Pt's able to show good safety to assist pt for toileting needs. Educated for her to help with his balance while pt pulls up his clothing . OT ADL-Bathing Bathing Type Bathing Type Shower General Evaluation Bathing Ability Moderate Assistance Areas Needing Assistance Wash/Dry Back,Wash/Dry Perineal Area Devices Bathing Equipment Hand Held Shower Sprayer, Shower Chair with Arms,Grab Bars Comments OT Bathing Comments Pt's to get a shower chair and HHSP for home use. Pt not able to reach for pericare needs and needing vc and assist to completeness of the task. M5 OT- IP IADL's Start: 07/07/20 12:23 Freq: Status: Active Protocol: Document 07/07/20 12:24 CGR (Rec: 07/07/20 12:50 CGR [id number]) OT-Instrumental Activities of Daily Living Deficits IADL Deficits Identified Deficits Home Safety Awareness Awareness of Need for Assistance at Home Good Awareness Ability to Problem Solve Emergency Able to Problem Solve Situations Home Safety Comments Pt appears to understand his need for assist. Money Management Money Management Caregiver Provides Assistance Meal Preparation Meal Preparation Caregiver Provides Assist Well Logging Captain Mud Analysis Well Logging Captain Mud Analysis Caregiver Provides Assist Driving Driving Comments Pt does not drive. M6 OT- IP Functional Cognition Start: 07/07/20 12:23 Freq: Status: Active Protocol: Document 07/09/20 12:00 [facility] (Rec: 07/09/20 12:13 [facility] [id number]) Cognitive Factors Limiting Selfcare Function Cognitive Ability Level of Alertness Alert Attention Span Ability Capable of Focused Attention, Capable of Sustained Attention Ability to Follow Commands Able to Follow One Step Commands Memory Description Short Term Impaired Safety Awareness Underestimates Need for Assistance Executive Function Ability Unable to Filter Distractions, Unable to Remember Details Cognitive Comments Cognitive Assessment Comments Pt's having to remind pt of safety for FWW use , to be sure to back up all the way to the toilet/recliner before sitting down and to reach back with his arms. M7 OT- IP Mobility and Balance Start: 07/07/20 12:23 Freq: Status: Active Protocol: Document 07/09/20 12:00 [facility] (Rec: 07/09/20 12:13 [facility] [id number]) OT- Bed Mobility Assessment Supine to Sit Supine to Sit Assist Minimal Assistance OT-Transfer Assessment Sit to and From Stand Sit to and from Stand Contact Guard Assistance,1 Person Assistance Transfers Transfer Ability Contact Guard Assistance, Minimal Assistance,1 Person Assistance Technique Transfer Destination Bed,Chair,Shower Stall,Toilet Devices Transfer Assistive Devices Gait Belt,Front Wheeled Walker Comments Mobility Comments Pt'w clarified and states has a 4ww at home versus FWW, recommended at this time a FWW would be safer to use. Left message for PT regarding pt has a 4WW versus FWW. Pt's able to delilah/doff gait belt and assist pt for mobility needs. Pt needing more assist DONNLEL for balance while stepping over the threshold of the shower. OT- Balance Assessment Sitting Balance and Reactions Static Sitting Balance Ability Good Dynamic Sitting Balance Ability Fair Standing Balance and Reactions Static Standing Balance Ability Fair M8 OT- IP Objective Assessments Start: 07/07/20 12:23 Freq: Status: Active Protocol: Document 07/08/20 10:17 [facility] (Rec: 07/08/20 10:40 [facility] [id number]) OT- Coordination Assessment Comments Coordination Comments Impaired for finger to nose for for right and left hands. OT Sensation Assessment Comments Summary Comments Decreased proprioceptiond and kinesthia for bilateral wrist and hands. M9 OT- IP Assessment and Plan Start: 07/07/20 12:23 Freq: Status: Active Protocol: Document 07/09/20 12:00 [facility] (Rec: 07/09/20 12:13 [facility] [id number]) OT Summary Assessment and Plan Potential Rehabilitation Potential Good Analytic Complexity at Evaluation Low Summary OT Impairments Balance,Coordination, Functional Mobility,Grooming, Dressing,Toileting,Bathing, Toilet Transfers,Shower Transfers,Activity Tolerance Progress Towards Goals Progressing Toward Goals Assessment Summary Pt did not have a loss of balance today howevr had episode of emesis , nursing notified. Pt's able to do caregiver training for pt for bed mobility, transfers, and how to assist for toileting and dressing needs. Pt's able to show good safety for all needs and feels comfortable to assist pt at home. Goals Grooming Goal Independent Dressing Goal Minimal Assistance Toileting Goal Independent Bathing Goal Minimal Assistance Toilet Transfer Goal Independent Shower Transfer Goal Independent Days to Meet Goals 3 Frequency of Treatment Frequency Of Treatment Once a Day Treatment Plan OT Treatment Plan ADL Training,Functional Cognition Training,Functional Mobility,Patient/Family Education,Discharge Planning Discharge Recommendations OT Discharge Recommendations Home with 24/7 Assist,Home Health Home Equipment Needs Shower chair, HHPS, and FWW Transportation Needs at Discharge Private Vehicle
--- NOTE | 2020-07-09 11:05 | PT.IPTN ---
Physical Therapy Treatment Note M2 PT-IP Current Condition Start: 07/07/20 13:13 Freq: NEEDED Status: Active Protocol: Document 07/07/20 11:31 AB (Rec: 07/07/20 13:31 AB [email or web address]) Physical Therapy Current Condition Current Condition Evaluation Date 07/07/20 Treatment Diagnosis syncope; difficulty in walking Onset Date 07/06/20 Precautions Other Precautions falls; BP M3 PT-IP Subjective Start: 07/07/20 13:13 Freq: NEEDED Status: Active Protocol: Document 07/09/20 11:05 AB (Rec: 07/09/20 12:05 AB [email or web address]) Subjective Physical Therapy Visit Type Type Treatment Note Visit Start Time 11:05 Visit Stop Time 11:30 Total Visit Minutes 25 Number of NEUROLOGICAL SURGEON Visits 0 Physical Therapy Visit Comments Patient Comments pt is agreeable to do PT Therapy Pain Assessment Pain Present Pain Present Denied Pain M4 PT-IP Mobility and Gait Start: 07/07/20 13:13 Freq: NEEDED Status: Active Protocol: Document 07/09/20 11:05 AB (Rec: 07/09/20 12:05 AB [email or web address]) PT-Transfer Assessment Sit to and From Stand Sit to and from Stand Standby Assistance,Contact Guard Assistance,Use of Upper Extremities Equipment Transfer Assistive Device Gait Belt,Front Wheeled Walker Orthotic/Prosthetic Devices or Brace: No Comments Mobility Comments pt sitting on chair. BP monitored. BP in sittin /68. spouse was able to put safety belt on. completed sit to stand SBA to CGA and pt was able to maintain standing using FWW for support SBA to CGA. BP in standin/54. c/o slight dizziness and pt stated that he needs to sit down. BP checked in sittin/74. dizziness dissipated pt agreed to ambulate. completed sit to stand SBA to CGA and ambulated in room ~ 40 ft using FWW. BP checked in sitting after ambulation: 123/ 69. pt stated he is tired and requested to just rest on the chair. positioned pt on chair. call light and table placed within reach. Gait Assessment Gait Gait Assistance Required: Standby Assistance,Contact Guard Assist Distance (Feet) 40 Able to Maintain Weight Bearing Status Yes During Gait Assistive Devices Assistive Device Gait Belt,Front Wheeled Walker Orthotic/Prosthetic Devices or Brace: No Gait Deviations General Gait Pattern Decreased Stride Length, Decreased Feet Clearance Factors Limiting Gait Function Factors Limiting Gait Function Decreased Activity Tolerance, Decreased Strength,Poor Balance Comments Gait Comments spouse stated that she will get a FWW for pt to use at home; uses w/c for outdoor mobility M5 PT-IP Objective Assessments Start: 07/07/20 13:13 Freq: NEEDED Status: Active Protocol: Document 07/07/20 11:31 AB (Rec: 07/07/20 13:31 AB [email or web address]) Orientation Orientation/Cognition Level of Alertness Alert Orientation Name,Place,Situation Language Function Ability Hard of Hearing Safety Awareness Decreased Safety Awareness Gross Range of Motion Lower Extremity ROM Assessment Within Functional Limits Strength Lower Extremity Strength Hip 4-/5 Knee 3+/5 Muscle Tone Muscle Tone WNL Yes M6 PT-IP Treatment Start: 07/07/20 13:13 Freq: NEEDED Status: Active Protocol: Document 07/09/20 11:05 AB (Rec: 07/09/20 12:05 AB [email or web address]) Physical Therapy Treatment Education Education Provided Safety M7 PT-IP Assessment and Plan Start: 07/07/20 13:13 Freq: NEEDED Status: Active Protocol: Document 07/09/20 11:05 AB (Rec: 07/09/20 12:05 AB [email or web address]) PT Summary Assessment and Plan Potential Rehabilitation Potential Good Summary Impairments Pain,ROM,Strength,Balance, Coordination,Cognition,Bed Mobility,Transfers,Gait, Activity Tolerance Progress Towards Goals Slow Progress due to Medical Issues,Slow Progress due to Activity Tolerance Assessment Summary pt continues to have orthostatic BP with c/o dizziness but with good recovery once seated. pt moving better today and requiring SBA to CGA. educated pt and spouse regarding safety and seated rest breaks in between activities expecially with upright/standing/ambulation. spouse has been assisting pt at home prior to hospitalization and is comfortable to assist pt on d/ c. pt will benefit from HHPT. Goals Bed Mobility Goal Standby Assistance Transfer Goal Standby Assistance Gait Goal Standby Assistance,Cane,Front Wheel Walker Gait Distance 150 Days to Meet Goals 5 Frequency of Treatment Frequency Of Treatment Once a Day Treatment Plan Physical Therapy Treatment Plan Bed Mobility Training,Transfer Training,Gait Training, Therapeutic Exercise,Balance Retraining,Discharge Planning, Hot or Cold Pack,Neuromuscular Re-ed,Coordination Retraining Recommendations To Nursing Amount of Assist Needed 1 Person Assist Discharge Recommendations PT Discharge Recommendations Home with 10/04 Assist,Home Health Transportation Needs at Discharge Private Vehicle
--- NOTE | 2020-07-09 11:46 | CM.DPNOTE ---
DCP Cont Patient continues to improve, PT has cleared patient for return home. Met w/patient and his , reviewed DCP. Both agree that home tomorrow w/HH will be feasible, no HH agency preference. Patient and spouse will be quarantined d/t their higher risk for COVID-19 exposure at the hospital, for at least a week at [facility] , meals delivered to room and no contact w/staff and other residents. Placed call to chiara Gooden , he explains [facility] administrators have allowed their staff in. Requested HH RN/PT/OT/FOREST AIDE/STAFF PSYCHOLOGIST, faxed completed and signed [facility], Order H+P and therapy notes to chiara, will update w/DC date, anticipated tomorrow. P: DC expected Monday, home to [facility], w/spouse and f/u from chiara . Spouse to transport home JUDE Sheffield
--- NOTE | 2020-07-09 15:08 | PC.NURSE ---
Addendum entered by Casandra Powers R.N. 07/09/20 15:23: 50 mL Emesis X 3 Original Note: Pt up to shower today with OT; BP stable; pt denies diplopia and dizziness
[2020-07-09] MEDS: FINASTERIDE 5 MG TABLET PO (20:33)
[2020-07-09] MEDS: ATORVASTATIN 20 MG TABLET PO (20:33)
[2020-07-09] MEDS: SERTRALINE 50 MG TABLET 12.5 MG PO (20:33)
[2020-07-10 00:10] VITALS: BP 143/77; PULSE 70; RESP 18; TEMP 36.3; O2SAT 94
[2020-07-10 00:30] VITALS: BP 144/79; PULSE 71; RESP 16; O2SAT 97
--- NOTE | 2020-07-10 00:30 | PC.NURSE ---
Addendum entered by Karina Azar R.N. 07/10/20 04:57: Special Note for RN/Provider: The patient and requests Covid-19 retest prior to DC to [facility] facility along with printed results. Addendum entered by Karina Azar R.N. 07/10/20 03:55: 0350 ICU informs of short V-tach episode again. Checked on patient, who was alert and oriented, sitting at edge of bed attempting to void in urinal. H/O BPH. Vitals in acceptable range for vital history. Pt denies chest pain, dizziness/lightheadedness. Will continue to monitor. Original Note: 0015 Received verbal notification from [employer] that patient just had 10 V-TACH beats, and this apparently isn't the first time this has happened to him. Checked on patient who was alert/oriented and in the middle of trying to void into the urinal. Pt denies chest pain, dizziness/lightheadedness, and states, I'm doing just fine. Just trying to pee. Vitals checked after patient finished voiding, vitals within acceptable range at BP 144/79, Pulse 71, O2 97 on RA. No further action taken.
[2020-07-10 03:54] VITALS: BP 167/89; PULSE 70; RESP 18; O2SAT 97
[2020-07-10 05:44] LABS: Alanine Aminotransferase 23 IU/L (<50); Albumin 3.9 g/dL (3.5-5.0); Albumin Globulin Ratio 1.4 (1.0-2.8); Alkaline Phosphatase 63 U/L (38-126); Aspartate Aminotransferase 26 IU/L (17-59); Bilirubin Total 0.6 mg/dL (0.2-1.3); Blood Urea Nitrogen 16 mg/dL (9-20); Calcium 9.6 mg/dL (8.4-10.2); Carbon Dioxide 27 mmol/L (22-32); Chloride 101 mmol/L (98-107); Estimated Glomerular Filt Rate > 60.0 mL/min (>60); Globulin 2.7 g/dL (1.7-4.1); Glucose 145 mg/dL (80-110); HEMOLYSIS < 15 (0-50); Magnesium 1.6 mg/dL (1.6-2.3); Potassium 4.2 mmol/L (3.4-5.1); Sodium 135 mmol/L (137-145); Total Protein 6.6 g/dL (6.3-8.2)
[2020-07-10 05:45] LABS: Hematocrit 39.8 % (41-53); Hemoglobin 13.5 g/dL (13.5-17.5); Mean Corpuscular HGB Conc 33.8 % (30-36); Mean Corpuscular Hemoglobin 33.4 PG (26-34); Mean Corpuscular Volume 98.8 fL (80-100); Platelet Count 210 X10^3/uL (150-400); Red Blood Cell Count 4.02 X10^6/uL (4.5-5.9); White Blood Cell Count 6.7 X10^3/uL (4.5-11.0)
[2020-07-10] MEDS: LEVOTHYROXINE 75 MCG TABLET PO (06:49)
[2020-07-10 07:39] LABS: Neutrophils Absolute Manual 3551 /uL (3000-5900); Total Cells Counted 100
[2020-07-10 07:40] LABS: RBC Morphology Normal Morphology
[2020-07-10 07:55] VITALS: BP 161/86; PULSE 70; RESP 16; TEMP 37.2; O2SAT 98
--- NOTE | 2020-07-10 08:42 | PM.DS.1 ---
History of Present Illness History of Present Illness Chief complaint: Dizzy, Double Vision, Headache Narrative: This very pleasant 85-year-old male with multiple medical problems presents to the emergency department with complaints of new onset diplopia, headache, dizziness and inability to walk. Patient is under the primary care of Dr. Smith is recently retired. Patient sees Dr. Arteaga seen now for cardiology and is for in the process of being referred to Neurology as well. Patient has had a stroke in October 2018 and he has had progressive worsening in his ability to walk. He has felt unsteady and he has had frequent falls. This has progressively worsened over the last year and a half. He was seen by Dr. palma now on June 29 and found to be symptomatic Rebecca orthostatic hypotensive. He was sent to the ER and given IV fluids and was started on midodrine 3 times a day. Since that time he developed the double vision as well as worsened dizziness, fatigue, unsteadiness. His evaluation in the ER showed a negative noncontrasted head CT. He had a CT angiogram which did not show evidence of acute blockage or intracranial event. Unfortunately he could not undergo an MRI MRA due to having a pacemaker. He was unable to informatics pharmacist the ER and it was determined that he needed to be admitted for further observation and evaluation. He has never had diplopia prior. Once he was placed on the midodrine his blood pressure went up significantly and then when he stood up it went down to 117/66. Dr. Chandler vogt was consulted and told him to stop the medication at that time. However patient continued to have symptoms. Dr. Louise vogt did not feel that the diplopia was related to the medication and in fact there was no evidence that this medication causes that. Past medical history: 1. Embolic CVA, October 2018 2. Atrial fibrillation 3. Carotid arterial disease 4. Type 2 diabetes 5. Peripheral neuropathy 6. Coronary artery disease 7. History of TIA 8. Cardiac pacemaker 9. Hyperlipidemia 10. Hypothyroidism 11. Vertigo 12. Has a history of diplopia on his outpatient medical history per Dr. Smith 13. TIA 14. Degenerative joint disease 15. BPH 16. Psoriasis 17. Orthostatic hypotension 18. Hematuria parent only his anticoagulation was stopped secondary to this. Home medications. His lists are accurate. His states that he has not been on duloxetine probably since prior to the stroke. He is taking finasteride 5 mg a day Nexium 20 mg a day meclizine as needed amiodarone 100 mg twice daily, tamsulosin 0.4 mg at night, atorvastatin 40 mg daily Past surgical history: 1. Appendectomy 2. Cardiac catheterization 3. Cardiac pacemaker placement 4. Back surgery 5. Lumbar fusion 6. He had a cardiac surgery he had [place] a occluder at [facility] 7. Vasectomy Family history his mother had dementia Father had tuberculosis Social history patient is . [facility]. He just recently moved out of his home because they could not care for it. He has a daughter who is a teacher and lives in a [facility] Review of systems: He does complain of depressive symptoms. It has been very hard that he has not been able to do much and feels he is losing function and therefore enjoyment of life. He denies chest pain He denies fevers or cough or shortness of breath or chills or rashes He has had headaches. He has had diplopia. He has felt dizzy and unsteady He has not had any diarrhea or bright red blood per rectum or black tarry stools Most recent echo was 11/12/2019 showed ejection fraction 55-60% no significant change from previous study mild dyssynchronous contraction pattern Metformin recently had his dosage decreased and had his Toprol decreased. He is on levothyroxine 75 mcg a day; he is on a baby aspirin a day Discharge Providers Provider Date of admission: 07/08/20 17:15 Discharge Date: 07/10/20 Primary care physician: Jose De Jesus Smith MD Consults: 07/06/20 19:45 Consult to Physical Therapy Evaluate & Treat Comment: Can see as patient Physician Instructions: Evaluate and Treat 07/06/20 19:47 Consult to Physician Urgent Comment: Consulting Provider: Diane Howard Reason for consultation: Admission Has provider been notified: Yes 07/07/20 08:12 Consult to [facility] - Automation Engineering Manager Routine Comment: PER DOCTOR JEN REQUEST Consult to Occupational Therapy Evaluate & Treat Comment: Physician Instructions: Evaluate and treat 07/07/20 08:20 Consult to Cardiology Routine Comment: Consulting Provider: Diane Howard Reason for consultation: ventricular tachycardia Has provider been notified: No 07/09/20 11:36 Consult to Home Health Routine Comment: Reason For Exam: Home Health upon DC Discharge provider: Diane Howard MD Summary Hospital Course Discharge Diagnosis: Autonomic dysfunction with labile blood pressures, improved with cessation of midodrine Dizziness, improved Diplopia, improved and CVA ruled out History of CVA History of coronary artery disease Diabetes type 2 improved Paroxysmal atrial fibrillation Hospital Course: 40 minutes spent with patient in counseling and coordination of care for discharge Patient was hospitalized for dizziness headache possible CVA. We were unable to do an MRI due to pacemaker. Non contrasted CT was normal. CT angiogram was normal. Patient had been started on midodrine with marked labile blood pressures. He was started on this for orthostatic hypotension which is felt to be autonomic dysfunction. He was admitted to the hospital ruled out for acute CA, ruled out for CVA. The midodrine was stopped. PT and OT were consulted. Patient's Lantus was stopped and his blood sugars remained stable on metformin. Patient was started on sertraline for low-grade depression. Patient steadily and slowly improved and was discharged home on hospital day 4. And improved condition. Discharge back to [facility] Status at Discharge Cognitive/behavioral status at discharge: oriented Functional status at discharge: uses cane/walker Overall status at discharge: patient is progressing back to baseline Exam Vital Signs (past 8 hours): - 07/10/20 03:54 Pulse Rate 70 Respiratory Rate 18 Blood Pressure 167/89 H Pulse Oximetry 97 Oxygen Delivery Method Room Air Oxygen Flow Rate 0 Narrative Exam Narrative: Alert and oriented x3 HEENT: Unremarkable Neck: Supple without adenopathy Chest: Clear to auscultation without wheezes rhonchi or crackles Cor: Regular rate and rhythm without any murmur Extremities: Compression stockings on and no swelling and pulses intact Objective Labs Result Diagrams: 07/10/20 05:13 07/10/20 05:13 Labs: Laboratory Results - last 24 hr 07/10/20 07/10/20 05:13 05:13 WBC 6.7 RBC 4.02 L Hgb 13.5 Hct 39.8 L MCV 98.8 MCH 33.4 MCHC 33.8 RDW 13.0 Plt Count 210 Total Counted 100 Seg Neutrophils % 53.0 Lymphocytes % (Manual) 41.0 Monocytes % (Manual) 6.0 Neutrophils # (Manual) 3551 RBC Morphology Normal morphology Sodium 135 L Potassium 4.2 Chloride 101 Carbon Dioxide 27 BUN 16 Creatinine 1.07 Estimated GFR > 60.0 BUN/Creatinine Ratio 15.0 Glucose 145 H Calcium 9.6 Magnesium 1.6 Total Bilirubin 0.6 AST 26 ALT 23 Alkaline Phosphatase 63 Total Protein 6.6 Albumin 3.9 Globulin 2.7 Albumin/Globulin Ratio 1.4 Discharge Assessment & Plan Assessment and Plan Assessment: Dizziness, headache, diplopia thought to be secondary to autonomic dysfunction with marked labile blood pressures due to midodrine. Condition improved with cessation midodrine Diabetes type 2, improved P AFib with well-controlled rate. Anticoagulation contraindicated due to frequent falls Hypothyroidism Plan of Treatment: DC back to [facility] any Follow-up with sd next week Follow-up with Dr. arteaga Discharge medications Will continue on outpatient amiodarone, aspirin, finasteride, levothyroxine, atorvastatin and metformin New medication is sertraline 12.5 mg daily Discharge medications: Cymbalta patient has not been on Cymbalta prior probably 2 years Lantus was discontinued because his blood sugars were well controlled Midodrine was discontinued Discharge Plan Discharge Plan Patient Disposition: Assisted Living Other facility: [facility] Under care of provider: Dr. Smith Discharge orders & Medications Discharge Orders: Discharge (Order); Ordered 07/10/20 Ordered By: Diane Howard Prescriptions: New sertraline [Zoloft] 50 mg Tablet 12.5 mg PO BEDTIME Qty: 30 RF: 2 Continued nitroglycerin 0.4 mg tablet, sublingual 0.4 mg SL Q5-15M PRN (Reason: chest pain) Qty: 30 RF: 2 magnesium chloride 64 mg tablet,delayed release (DR/EC) 64 mg PO DAILY RF: 0 levothyroxine 75 mcg tablet 75 mcg PO DAILY RF: 0 metformin 1,000 mg tablet 500 mg PO BID RF: 0 finasteride 5 mg Tablet 5 mg PO BEDTIME RF: 0 atorvastatin 80 mg tablet 20 mg PO DAILY RF: 0 amiodarone 200 mg tablet 100 mg PO BID RF: 0 aspirin [Adult Low Dose Aspirin] 81 mg tablet,delayed release (DR/EC) 81 mg PO DAILY RF: 0 Discontinued Lantus Solostar U-100 Insulin 100 unit/mL (3 mL) Insulin Pen 10 unit SUB-Q BEDTIME RF: 0 duloxetine [Cymbalta] 30 MG capsule,delayed release(DR/EC) 30 mg PO BEDTIME RF: 0 Unisom (doxylamine) 25 mg Tablet 25 mg PO BEDTIME PRN (Reason: Sleep) RF: 0 Follow up/Referrals: Jose De Jesus Smith MD [Primary Care Provider] - Diet/Activity/Treatments Diet: Carb-consistent/Diabetic Liquid consistency: Normal/Thin Food texture: Regular Activity: as tolerated Visit Report/Discharge Packet Visit Report Forms: Patient Portal/API, Stroke Signs & Symptoms Discharge Data Primary Care Provider: Jose De Jesus Smith Quality VTE Deep Vein Thrombosis/Pulmonary Embolism Present on Admission: No
[2020-07-10] MEDS: ASPIRIN EC 81 MG TABLET PO (09:26)
[2020-07-10] MEDS: ENOXAPARIN 40 MG/0.4 ML SYRINGE SUBCUT (09:26)
[2020-07-10] MEDS: MAGNESIUM OXIDE 400 MG TABLET PO (09:26)
[2020-07-10] MEDS: AMIODARONE 100 MG TABLET PO (09:26)
[2020-07-10] MEDS: METFORMIN HCL 500 MG TABLET PO (09:26)
[2020-07-10] MEDS: SODIUM CHLORIDE 0.9% FLUSH 10 ML IV (09:27)
--- NOTE | 2020-07-10 10:16 | OT.IPNOTE ---
Pt's states has no further OT questions at this time and able to states able to get a FWW for home use. Pt looking to go home today. NO charge.
--- NOTE | 2020-07-10 11:53 | PT.IPTN ---
Current Diagnoses Disorder of the autonomic nervous system, unspecified (07/08/20) Physical Therapy Treatment Note M2 PT-IP Current Condition Start: 07/07/20 13:13 Freq: NEEDED Status: Active Protocol: Document 07/07/20 11:31 AB (Rec: 07/07/20 13:31 AB [id number]) Physical Therapy Current Condition Current Condition Evaluation Date 07/07/20 Treatment Diagnosis syncope; difficulty in walking Onset Date 07/06/20 Precautions Other Precautions falls; BP M3 PT-IP Subjective Start: 07/07/20 13:13 Freq: NEEDED Status: Active Protocol: Document 07/10/20 11:44 AMB (Rec: 07/10/20 11:53 AMB [id number]) Subjective Physical Therapy Visit Type Type Treatment Note Visit Start Time 11:10 Visit Stop Time 11:35 Total Visit Minutes 25 Number of COLLECTION TELLER Visits 0 Physical Therapy Visit Comments Patient Comments Pt agreeable to doing PT, states he is tired, didn't sleep well last night. in room for all tx. Therapy Pain Assessment Pain Present Pain Present Denied Pain M4 PT-IP Mobility and Gait Start: 07/07/20 13:13 Freq: NEEDED Status: Active Protocol: Document 07/10/20 11:44 AMB (Rec: 07/10/20 11:53 AMB [email or web address]) PT-Bed Mobility Assessment Supine to Sit Supine to Sit Standby Assistance Sit to Supine Sit to Supine Standby Assistance Scooting Scooting to Edge of Bed Standby Assistance PT-Transfer Assessment Sit to and From Stand Sit to and from Stand Standby Assistance,Use of Upper Extremities Equipment Transfer Assistive Device Gait Belt,Front Wheeled Walker Transfers Transfer Destination Toilet Transfer Ability Level of Assist Contact Guard Assistance,Use of Upper Extremities Comments Mobility Comments BP monitored: supine 148/86, seated at EOB 118/63, standing 130/57. Pt denied dizziness during those transitions. Gait Assessment Gait Gait Assistance Required: Contact Guard Assist Distance (Feet) 20 Assistive Devices Assistive Device Gait Belt,Front Wheeled Walker Gait Deviations General Gait Pattern Decreased Stride Length, Decreased Feet Clearance Factors Limiting Gait Function Factors Limiting Gait Function Decreased Activity Tolerance, Decreased Strength,Poor Balance Comments Gait Comments Spouse states she got him a new FWW. M5 PT-IP Objective Assessments Start: 07/07/20 13:13 Freq: NEEDED Status: Active Protocol: Document 07/07/20 11:31 AB (Rec: 07/07/20 13:31 AB [email or web address]) Orientation Orientation/Cognition Level of Alertness Alert Orientation Name,Place,Situation Language Function Ability Hard of Hearing Safety Awareness Decreased Safety Awareness Gross Range of Motion Lower Extremity ROM Assessment Within Functional Limits Strength Lower Extremity Strength Hip 4-/5 Knee 3+/5 Muscle Tone Muscle Tone WNL Yes M6 PT-IP Treatment Start: 07/07/20 13:13 Freq: NEEDED Status: Active Protocol: Document 07/09/20 11:05 AB (Rec: 07/09/20 12:05 AB [email or web address]) Physical Therapy Treatment Education Education Provided Safety M7 PT-IP Assessment and Plan Start: 07/07/20 13:13 Freq: NEEDED Status: Active Protocol: Document 07/10/20 11:44 AMB (Rec: 07/10/20 11:53 AMB [email or web address]) PT Summary Assessment and Plan Summary Impairments Pain,ROM,Strength,Balance, Coordination,Cognition,Bed Mobility,Transfers,Gait, Activity Tolerance Progress Towards Goals Slow Progress due to Medical Issues,Slow Progress due to Activity Tolerance Assessment Summary Pt continues to have orthostatic hypotension. Pt became nauseous and dry heaved after using the bathroom and standing to wash hands. When asked, spouse says that they have been dealing with this for a while and she feels comfortable taking care of him considering his current level of function. Pt would benefit from home health PT. Goals Bed Mobility Goal Standby Assistance Transfer Goal Standby Assistance Gait Goal Standby Assistance,Cane,Front Wheel Walker Gait Distance 150 Days to Meet Goals 5 Frequency of Treatment Frequency Of Treatment Once a Day Treatment Plan Physical Therapy Treatment Plan Bed Mobility Training,Transfer Training,Gait Training, Therapeutic Exercise,Balance Retraining,Discharge Planning, Hot or Cold Pack,Neuromuscular Re-ed,Coordination Retraining Recommendations To Nursing Amount of Assist Needed 1 Person Assist Discharge Recommendations PT Discharge Recommendations Home with 10/04 Assist,Home Health Transportation Needs at Discharge Private Vehicle
[2020-07-10 12:40] LABS: COVID19 -Nasal RAPID Negative (Negative)
--- NOTE | 2020-07-10 14:24 | PC.NURSE ---
Day shift note: Patient discharged home per Dr. Howard order. Patient awake, alert, and pleasantly cooperative. No C/O visual disturbance or dizziness. Mild generalized weakness, states much improved from day of admission. Ambulating in room with FWW, steady gait noted. Discharge instructions given to both patient and Ellie, discussed importance of new medication, and discontinued medications. Discussed importance of F/U with PMD and s/sx of infection. Both verbalized understanding of instructions, home via private vehicle to [facility] living in stable condition.
--- NOTE | 2020-07-10 15:08 | CM.DPNOTE ---
DC Note DC home w/spouse to [address] today, COVID-19 updated and Neg. Updated chiara OLSON, faxed DC Summary JW
== END 2020-07-10 13:30 | disposition home health service (06) | DRG 74 ==
LOC: ED 19:54 → AC 21:00
PROVIDERS: Student in an Organized Health Care Education/Training Program; Admitting Provider Family Medicine; Emergency Provider Emergency Medicine; PCP Family Medicine; Visit Provider Family Medicine
DX: G90.9 Disorder of the autonomic nervous system, unspecified (principal); I95.1 Orthostatic hypotension; T44.4X5A Adverse effect of predominantly alpha-adrenoreceptor agonists, initial encounter; I48.0 Paroxysmal atrial fibrillation; E83.42 Hypomagnesemia; I69.398 Other sequelae of cerebral infarction; R26.89 Other abnormalities of gait and mobility; I25.10 Atherosclerotic heart disease of native coronary artery without angina pectoris; E11.42 Type 2 diabetes mellitus with diabetic polyneuropathy; Z95.0 Presence of cardiac pacemaker; F32.9 Major depressive disorder, single episode, unspecified; E78.5 Hyperlipidemia, unspecified; E03.9 Hypothyroidism, unspecified; N40.0 Benign prostatic hyperplasia without lower urinary tract symptoms; R42 Dizziness and giddiness; Z79.4 Long term (current) use of insulin; K21.9 Gastro-esophageal reflux disease without esophagitis; Z11.59 Encounter for screening for other viral diseases
CPT/HCPCS: 36415; 36592; 70450; 70496; 70498; 80048; 80053; 81003; 82962; 83735; 84443; 85025; 85610; 85730; 87635; 96360; 96361; 97112; 97162; 97165; 97530; 97535; 99284; G0378; J1650; Q9967

== ENCOUNTER 2020-07-16 16:09 | Observation (INO) | payer MEDICARE, OTHER, SELFPAY ==
[2020-07-06 21:14] VITALS: BMI 26.4
[2020-07-16] VITALS (9 sets, daily range): BP systolic 136–176; BP diastolic 65–84; PULSE 69–74; RESP 8–24; TEMP 36.4–36.7; O2SAT 96–99; BMI 26.2
--- NOTE | 2020-07-16 | DI.ECHO.S_ITS ---
[facility]---------+ [facility] +---------+ : : [address] : : : [place], [place] : : : : [id number] : : : : Phone: [phone]---------+ Echocardiogram Report + + :Name: KENNETH PEREZ Study Date: 07/17/2020 Height: 69 in : :[facility] Weight: 177 lb: : Gender: Male BSA: 2.0 m2 : :: 1935 Age: 85 yrs : :Reason For Study: TIA : :Ordering Physician: Imelda : :Hospitalist Performed By: Ani Page : :Referring: AMBER LYONS : + + Interpretation Summary Left ventricular systolic function is normal with an estimated ejection fraction of 60 to 65% without any focal wall motion abnormality although there is a mild dyssynchronous contraction pattern due to the paced rhythm. Systolic function appears slightly more dynamic compared to the previous study. There is borderline LVH with a probable diastolic relaxation abnormality but probable normal filling pressures that are unchanged. The right ventricle is normal in size with systolic function at the lower limits of normal but unchanged from the previous study. Right ventricular systolic pressure is estimated at 31 mmHg with a CVP of 3 mmHg, likely similar to the previous study. There is severe left atrial enlargement which has markedly increased in size since the previous exam. Right atrial size is normal and unchanged. There is mild aortic regurgitation through a slightly sclerotic valve which is unchanged. There is mild to moderate tricuspid regurgitation that is slightly more prominent and mild pulmonic valve regurgitation that is slightly less prominent compared to the previous study. The aortic root and ascending aorta are moderately enlarged, measuring slightly larger compared to the previous study. Procedure: A two-dimensional transthoracic echocardiogram with color flow and Doppler was performed. The study quality was technically adequate. Comparison is made with the echocardiogram of 11/12/2019. The patient has a paced rhythm. Left Ventricle: The left ventricle is normal in size. There is borderline concentric left ventricular hypertrophy. The ejection fraction is estimated to be 60-65%. Left ventricular systolic function appears normal without focal wall motion abnormalities. There is a mild dyssynchronous contraction pattern due to the paced rhythm. There are no focal wall motion abnormalities. This is slightly more dynamic compared to the previous study. Diastolic parameters suggest a relaxation abnormality of the left ventricle, consistent with probable normal filling pressures. This is unchanged compared to the previous study. 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 The right ventricle is normal size. Right ventricular systolic function is at the lower limits of normal. This is unchanged compared to the previous study. Atria: The left atrium is severely dilated. The left atrium has significantly increased in size since the prior echo exam. Right atrial size is normal. This is unchanged compared to the previous study. The interatrial septum grossly appears intact with no obvious evidence for an atrial septal defect. There is no Doppler evidence for an interatrial shunt. Mitral Valve: There is mild mitral annular calcification. The mitral valve leaflets appear mildly thickened, but open well. The mitral valve leaflets are slightly calcified. There is a flat closure plane of the the mitral valve leaflets. There is trace mitral regurgitation. This is unchanged compared to the previous study. Aortic Valve: The aortic valve is trileaflet. The aortic valve is mildly calcified. The aortic valve opens well. There is mild aortic regurgitation. This is unchanged compared to the previous study. Tricuspid Valve: The tricuspid valve is not well visualized, but is grossly normal. There is mild to moderate tricuspid regurgitation. This is slightly more prominent compared to the previous study. The right ventricular systolic pressure is estimated to be at least 31 mmHg based on an estimated right atrial pressure of 3 mm Hg. This is unchanged compared to the previous study. Pulmonic Valve: The pulmonic valve is not well visualized. There is mild pulmonic regurgitation. This is slightly less prominent compared to the previous study. Great Vessels: The aortic root is moderately dilated. The ascending aorta is moderately enlarged. This is slightly larger compared to the previous study. The pulmonary artery is not well visualized, but is probably normal size. The IVC is of normal diameter and collapses greater than 50% with a sniff. This suggests a low right atrial pressure of 3 mm Hg. Pericardium/ Pleura There is no pericardial effusion. There is no pleural effusion. MMode/2D Measurements & Calculations LVIDd: 4.9 cm LVOT diam: 2.5 cm LVIDs: 3.5 cm Ao root diam: 4.2 cm FS: 28.9 % asc Aorta Diam: 4.4 cm IVSd: 1.0 cm LVPWd: 0.80 cm LV ortega. diameter/BSA (cm/m^2): 2.5 LV sys. diameter/BSA (cm/m^2): 1.8 LA A2 area: 28.2 cm2 RA long axis: 5.3 cm LA A4 area: 17.9 cm2 RA area: 15.5 cm2 LA length (vol): 4.6 cm RA vol: 38.7 ml LA vol: 93.3 ml RA : 19.7 ml/m2 LA vol index: 47.6 ml/m2 RVD1 (basal): 4.1 cm Doppler Measurements & Calculations Ao V2 max: 119.3 cm/sec LVOT Max Santiago: 87.1 cm/sec Ao V2 mean: 87.7 cm/sec LV V1 max P.0 mmHg Ao max P.7 mmHg LV V1 VTI: 16.8 cm Ao mean P.4 mmHg SHAKILA(I,D): 3.5 cm2 Ao V2 VTI: 23.3 cm SHAKILA(V,D): 3.5 cm2 sev ratio: 0.72 SHAKILA indexed to BSA (cm^2/m^2): 1.8 AI P1/2t: 533.3 msec AI dec slope: 248.7 cm/sec2 MV E max santiago: 54.1 cm/sec TR max santiago: 265.9 cm/sec MV A max santiago: 76.1 cm/sec TR max P.3 mmHg MV E/A: 0.71 PA V2 max: 63.8 cm/sec Med Peak E' Santiago: 3.8 cm/sec PA V2 mean: 42.5 cm/sec E/E' med: 14.3 PA mean P.80 mmHg Lat Peak E' Santiago: 5.1 cm/sec E/E' lat: 10.7 E/e' average: 12.5 MV P1/2t: 78.6 msec MV P1/2t max santiago: 53.7 cm/sec SV(LVOT): 81.1 ml MVA(P1/2t): 2.8 cm2 Reading Physician:03:06 PM
--- NOTE | 2020-07-16 16:19 | ED.SYNCOPE ---
HPI - Syncope General Chief Complaint: Syncope Stated Complaint: Syncope, lightheaded Time Seen by Provider: 07/16/20 16:19 Source: patient and EMS Mode of arrival: EMS Limitations: altered mental status History of Present Illness HPI narrative: This is an 85-year-old male who comes to the emergency department for loss of consciousness. Patient was having a discussion with a home healthcare worker about his POLST status when patient felt dizzy according to EMS and then lost consciousness for approximately 5 minutes. Per report patient was breathing the entire time but did not respond to verbal or tactile stimulus. When EMS arrived he was alert but is slow to answer questions and per family had not return to baseline mental status. Patient has a remote history of stroke, unclear if he has any deficits secondary to this. Patient does state that he has a headache. Denies any vision changes. He denies any chest pain or shortness of breath. He does not have any nausea or vomiting today, no loss of bowel or bladder control was noted. Unclear if he had any new weakness he has not ambulated or moved since. Glucose was normal for EMS. He was on Lantus until recently he also takes a daily aspirin, amiodarone and atorvastatin as well as finasteride, levothyroxine, metformin, sertraline and has nitro SL prn. Patient does have a pacemaker in place he is unable to tell me if he has had any additional surgeries. He is . Related Data Home Medications Medication Instructions Recorded Confirmed levothyroxine 75 mcg PO DAILY 08/27/18 07/06/20 metformin 500 mg PO BID 08/27/18 07/06/20 amiodarone 200 mg tablet 100 mg PO BID tab 12/24/18 07/06/20 aspirin 81 mg tablet,delayed 81 mg PO DAILY 12/24/18 07/06/20 release atorvastatin 80 mg tablet 20 mg PO DAILY tab 12/24/18 07/06/20 magnesium chloride 64 mg PO DAILY 01/22/19 07/06/20 finasteride 5 mg PO BEDTIME 07/06/20 07/06/20 Previous Rx's Medication Instructions Recorded nitroglycerin 0.4 mg SL Q5-15M PRN #30 tab 06/29/18 sertraline [Zoloft] 12.5 mg PO BEDTIME #30 tab 07/10/20 Allergies Allergy/AdvReac Type Severity Reaction Status Date / Time Ersyutu-Vvg-Pfl Reductase Allergy Intermediate MUSCLE PAIN Verified 07/03/20 09:44 Inhibitor [XNNCVVC-BBS-XRE REDUCTASE INHIBITOR] piroxicam [PIROXICAM] Allergy Mild NAUSEA, Verified 07/03/20 09:44 VOMITING dabigatran etexilate AdvReac Hematuria Verified 07/03/20 09:44 Review of Systems Review of Systems ROS Unobtainable: All systems reviewed & are unremarkable except as noted in HPI and below Patient History Medical History Anxiety (Chronic) CAD (coronary artery disease) (Chronic) DDD (degenerative disc disease), cervical (Chronic) Depression (Chronic) Diabetes (Resolved) Dyslipidemia (Chronic) Dysuria (Chronic) Elevated serum homocysteine level (Chronic) History of angina (Chronic) History of CVA (cerebrovascular accident) (Resolved) History of dizziness (Resolved) History of esophageal reflux (Resolved) History of fatigue (Resolved) History of hematuria (Resolved) Impotence (Chronic) Lumbosacral radiculopathy at L5 (Chronic) Memory deficit (Chronic) Neuropathy of both feet (Chronic) Osteoarthritis (Chronic) Pacemaker (Chronic ~2013) Paroxysmal A-fib (Chronic) 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) RBBB (Chronic) Renal insufficiency (Chronic) Sick sinus syndrome (Chronic) Sleep apnea (Chronic ~2012) Spinal stenosis in cervical region (Chronic) Spinal stenosis of lumbar region (Chronic) TIA (transient ischemic attack) (Acute) Urinary retention (Chronic) Surgical History H/O laminectomy (Resolved) H/O shoulder surgery (Resolved) H/O thumb surgery (Resolved) History of appendectomy (Resolved) History of bladder surgery (Resolved) History of cardiac cath (Resolved ~2012) History of cholecystectomy (Resolved ~2012) History of cystoscopy (Resolved) History of lumbar fusion (Resolved) History of tonsillectomy (Resolved) History of vasectomy (Resolved) Status post right foot surgery (Resolved) Social History marital status: details: to iSri, lives in [place] household members: spouse lives independently: Yes caregiver/support person: No housing: house Smoking Status: Never smoker alcohol intake: current substance use type: does not use Smoking Status: Never smoker alcohol intake frequency: holidays/special occasions only Substance Use Type: does not use Exam Initial Vital Signs Initial Vital Signs: Vital Signs Pulse Rate 69 07/16/20 16:14 Respiratory Rate 8 L 07/16/20 16:14 Pulse Oximetry 99 07/16/20 16:14 GEN: well nourished, well appearing male, alert and oriented to self, year but does not know where he is at, he is slow to answer but answers appropriately for medical issues, patient appears to be in mild distress. HEENT: Atraumatic, pupils are equal round reactive to light, extraocular movements are intact, nares are clear, TMs are clear with no fluid, there is no conjunctival pallor. Throat is clear without any exudates, erythema, tonsillar enlargement or uvular deviation, no facial droop. Clear speech. HEART: Regular rate and rhythm without murmur, clicks, rubs. Pulses are equal in upper and lower extremities LUNGS:Lungs clear to auscultation, no wheezes, rales, crackles, chest moves symmetrically ABD:bowel sounds normal, soft, non-tender, no guarding, rebound, rigidity, no masses noted, no hepatosplenomegaly :No CVA tenderness MSCL: Non-tender. NEURO:CN 2-12 intact, sensation normal, reflexes 2/4 upper and lower extremities. Upper extremities equal strength and school aide bilaterally. Patient is slow to follow some commands. Scores GCS Lovell coma scale eye opening: Spontaneous Katarzyna coma scale verbal response: Confused Katarzyna coma scale motor response: Obey commands Lovell coma scale total score: 14 Course Orders Ordered: ED Orders 07/16/20 16:00 Complete Blood Count AUTO DIFF Stat Comprehensive Metabolic Panel Stat D Dimer Stat Lactate (Lactic Acid) Stat Magnesium Stat NT-proBNP (BNP-Adult 18+) Stat Partial Thromboplastin Time Stat Procalcitonin Stat Prothrombin Time INR Stat Troponin & CK Cardiac Panel Stat 07/16/20 16:21 CT head/brain wo con Stat XR chest 1V Stat 07/16/20 16:28 EKG-12 Lead Stat 07/16/20 17:24 CT angio head and neck Stat 07/16/20 17:44 Urinalysis and Microscopic Stat 07/16/20 18:10 Blood Culture Stat 07/16/20 18:11 COVID19 -ED/INPAT/OR/L&D Stat Sodium Chloride (Normal Saline 0.9%) 1,000 mls @ 125 mls/hr IV CONT ALLA Last Admin: 07/16/20 18:13 Dose: 125 mls/hr Documented by: NADER Discontinued Medications Acetaminophen (Tylenol) 650 mg PO NOW ONE Stop: 07/16/20 16:57 Last Admin: 07/16/20 17:08 Dose: 650 mg Documented by: NADER Aspirin (Aspirin Chew) 324 mg PO NOW ONE Stop: 07/16/20 17:26 Last Admin: 07/16/20 17:30 Dose: 324 mg Documented by: NADER Sodium Chloride (Normal Saline 0.9%) 1,000 mls @ 1,000 mls/hr IV BOLUS ONE Stop: 07/16/20 17:18 Last Infusion: 07/16/20 18:13 Dose: 0 mls/hr Documented by: Admin: 07/16/20 16:55 Dose: 1,000 mls/hr Documented by: NADER Reevaluation(s) Reevaluation #1: Patient's had arrived, she states that patient was alert appropriate and then sort of got a glazed look he did not lose tone but stopped responding for about 5 minutes. She is unsure but feels he might have some facial droop. She states he is not back to his normal baseline. She states that he had otherwise been well up to today. During this time they had been discussing patient POLST status and she states that he is DNR/DNI with no aggressive interventions but only comfort measures if ?there is no hope for recovery. ? He has had tpa in the past for CVA, she was unsure if todays symptoms are similar to his past CVA. Patient on recheck is more alert although still slow to respond to all questions, was give tylenol for his current headache and had just received. Discussed initial labs and plan for angiography. CTA does not show new changes. Time: 17:30 Reevaluation #2: Patient is much improved in his mentation. He is attempting to give a urine sample. Discussed labs with patient and , imaging and angiography. Time: 18:45 Consultations Consultation #1: Spoke with Dr. Pratt and she accepts for observation telemetry, labs, imaging, and patient has improved in department. Discussed potential differential. Vital Signs Vital signs: Vital Signs - 8 hr 07/16/20 16:14 07/16/20 16:21 07/16/20 16:30 Temperature 98.0 F Pulse Rate 69 74 69 Respiratory Rate 8 L 16 18 Blood Pressure 174/81 H Pulse Oximetry 99 98 07/16/20 17:00 07/16/20 17:30 07/16/20 18:00 Temperature Pulse Rate 69 70 72 Respiratory Rate 24 20 20 Blood Pressure Pulse Oximetry 96 96 97 07/16/20 18:03 Temperature Pulse Rate 71 Respiratory Rate 22 Blood Pressure 176/84 H Pulse Oximetry 98 MDM - Syncope Lab Data Attestation: I reviewed the patient's lab results. Lab results narrative: Ddimer is elevated but is negative when age adjusted. Patient's CBC shows slightly low hematocrit but stable hemoglobin. Platelets in white count or in the normal range. Patient has got a very low sodium at 1:34 a.m. BUN is 21 with elevation is creatinine from 1.071.37. His lactate is 5.2. LFTs are normal with normal troponin, BNP and procalcitonin. Urine sample is pending. COVID is negative. Result diagrams: 07/16/20 16:00 07/16/20 16:00 Labs: Lab Results 07/16/20 07/16/20 07/16/20 Range/Units 16:00 16:00 16:00 WBC 6.7 (4.5-11.0) X10^3/uL RBC 4.00 L (4.5-5.9) X10^6/uL Hgb 13.5 (13.5-17.5) g/dL Hct 39.4 L (41-53) % MCV 98.7 (80-100) fL MCH 33.8 (26-34) PG MCHC 34.2 (30-36) % RDW 12.9 (11.6-14.8) % Plt Count TNP Neut % (Auto) 64.7 (50-75) % Lymph % (Auto) 25.9 (25-40) % Owen % (Auto) 8.0 (3-14) % Eos % (Auto) 0.7 L (2-4) % Baso % (Auto) 0.7 (0-2) % Neut # (Auto) 4300 (9327-2724) /uL Lymph # (Auto) 1700 (2185-9429) /uL Owen # (Auto) 500 (0-900) /uL Eos # (Auto) 0 (0-450) /uL Baso # (Auto) 0 (0-100) /uL PT 12.1 (10.1-12.7) SECONDS INR 1.1 (0.9-1.3) APTT (26.4-36.2) SECONDS D-Dimer 321 H (<230) ng/mL Sodium 134 L (137-145) mmol/L Potassium 4.7 (3.4-5.1) mmol/L Chloride 98 (98-107) mmol/L Carbon Dioxide 26 (22-32) mmol/L BUN 21 H (9-20) mg/dL Creatinine 1.37 H (0.66-1.25) mg/dL Estimated GFR 49.4 L (>60) mL/min BUN/Creatinine Ratio 15.3 (6-22) Glucose 138 H (80-110) mg/dL Lactate (0.7-2.1) mmol/L Calcium 9.4 (8.4-10.2) mg/dL Magnesium 1.6 (1.6-2.3) mg/dL Total Bilirubin 0.7 (0.2-1.3) mg/dL AST 26 (17-59) IU/L ALT 29 (<50) IU/L Alkaline Phosphatase 59 (38-126) U/L Total Creatine Kinase 45 L (55-170) U/L CK-MB (CK-2) TNP CK-MB (CK-2) Rel Index TNP Troponin I < 0.012 (0.01-0.034) ng/mL NT-Pro-B Natriuret Pep 289 (<450) pg/mL Total Protein 6.8 (6.3-8.2) g/dL Albumin 4.1 (3.5-5.0) g/dL Globulin 2.7 (1.7-4.1) g/dL Albumin/Globulin Ratio 1.5 (1.0-2.8) Procalcitonin (<0.5) ng/mL COVID-19 PCR (Negative) 07/16/20 07/16/20 07/16/20 Range/Units 16:00 16:00 16:00 WBC (4.5-11.0) X10^3/uL RBC (4.5-5.9) X10^6/uL Hgb (13.5-17.5) g/dL Hct (41-53) % MCV (80-100) fL MCH (26-34) PG MCHC (30-36) % RDW (11.6-14.8) % Plt Count Neut % (Auto) (50-75) % Lymph % (Auto) (25-40) % Owen % (Auto) (3-14) % Eos % (Auto) (2-4) % Baso % (Auto) (0-2) % Neut # (Auto) (2761-2401) /uL Lymph # (Auto) (2586-3103) /uL Owen # (Auto) (0-900) /uL Eos # (Auto) (0-450) /uL Baso # (Auto) (0-100) /uL PT (10.1-12.7) SECONDS INR (0.9-1.3) APTT 20 L D (26.4-36.2) SECONDS D-Dimer (<230) ng/mL Sodium (137-145) mmol/L Potassium (3.4-5.1) mmol/L Chloride (98-107) mmol/L Carbon Dioxide (22-32) mmol/L BUN (9-20) mg/dL Creatinine (0.66-1.25) mg/dL Estimated GFR (>60) mL/min BUN/Creatinine Ratio (6-22) Glucose (80-110) mg/dL Lactate 5.2 H* (0.7-2.1) mmol/L Calcium (8.4-10.2) mg/dL Magnesium (1.6-2.3) mg/dL Total Bilirubin (0.2-1.3) mg/dL AST (17-59) IU/L ALT (<50) IU/L Alkaline Phosphatase (38-126) U/L Total Creatine Kinase (55-170) U/L CK-MB (CK-2) CK-MB (CK-2) Rel Index Troponin I (0.01-0.034) ng/mL NT-Pro-B Natriuret Pep (<450) pg/mL Total Protein (6.3-8.2) g/dL Albumin (3.5-5.0) g/dL Globulin (1.7-4.1) g/dL Albumin/Globulin Ratio (1.0-2.8) Procalcitonin < 0.05 (<0.5) ng/mL COVID-19 PCR (Negative) 07/16/20 Range/Units 18:11 WBC (4.5-11.0) X10^3/uL RBC (4.5-5.9) X10^6/uL Hgb (13.5-17.5) g/dL Hct (41-53) % MCV (80-100) fL MCH (26-34) PG MCHC (30-36) % RDW (11.6-14.8) % Plt Count Neut % (Auto) (50-75) % Lymph % (Auto) (25-40) % Owen % (Auto) (3-14) % Eos % (Auto) (2-4) % Baso % (Auto) (0-2) % Neut # (Auto) (4169-6616) /uL Lymph # (Auto) (6948-6965) /uL Owen # (Auto) (0-900) /uL Eos # (Auto) (0-450) /uL Baso # (Auto) (0-100) /uL PT (10.1-12.7) SECONDS INR (0.9-1.3) APTT (26.4-36.2) SECONDS D-Dimer (<230) ng/mL Sodium (137-145) mmol/L Potassium (3.4-5.1) mmol/L Chloride (98-107) mmol/L Carbon Dioxide (22-32) mmol/L BUN (9-20) mg/dL Creatinine (0.66-1.25) mg/dL Estimated GFR (>60) mL/min BUN/Creatinine Ratio (6-22) Glucose (80-110) mg/dL Lactate (0.7-2.1) mmol/L Calcium (8.4-10.2) mg/dL Magnesium (1.6-2.3) mg/dL Total Bilirubin (0.2-1.3) mg/dL AST (17-59) IU/L ALT (<50) IU/L Alkaline Phosphatase (38-126) U/L Total Creatine Kinase (55-170) U/L CK-MB (CK-2) CK-MB (CK-2) Rel Index Troponin I (0.01-0.034) ng/mL NT-Pro-B Natriuret Pep (<450) pg/mL Total Protein (6.3-8.2) g/dL Albumin (3.5-5.0) g/dL Globulin (1.7-4.1) g/dL Albumin/Globulin Ratio (1.0-2.8) Procalcitonin (<0.5) ng/mL COVID-19 PCR Negative (Negative) Imaging Data CT scan - head: Radiologist's Impression: Sotero Kasper 85 M [address] [address] [address] Scan Report Signed Patient: Sotero Kasper WMR#: [id number] : 5Acct:[id number] Age/Sex: 85 / MDate of Service: 07/16/20 Loc: ED Accession Number: [id number] Procedure: CT head/brain wo con Ordering Provider: Priya Magdaleno D.O. PROCEDURE: CT HEAD/BRAIN WO CON INDICATIONS: syncope vs cva vs other TECHNIQUE: Noncontrast 4.5 mm thick angled axial sections acquired from the foramen magnum to the vertex, with coronal and sagittal reformats. For radiation dose reduction, the following was used: automated exposure control, adjustment of mA and/or kV according to patient size. COMPARISON: [facility], CT, CT HEAD/BRAIN WO CON, 07/03/2020, 10:08. [facility], CT, CT HEAD/BRAIN WO CON, 07/06/2020, 15:57. FINDINGS: Image quality: Excellent. CSF spaces: Basal cisterns are patent. No extra-axial fluid collections. The ventricles are symmetric in size and shape. Brain: No intracranial bleeds or masses. There is moderate cerebral volume loss for age, with resultant ventricular and sulcal prominence. Old lacunar infarct in the left coronal radiata. There are moderate periventricular and deep white matter chronic small vessel ischemic changes. There is intracranial internal carotid artery and vertebral artery atherosclerosis. Skull and face: Calvarium and visualized facial bones appear intact, without suspicious lesions. Sinuses: Visualized sinuses and mastoids are clear. IMPRESSION: 1. No acute intracranial abnormalities. 2. Cerebral volume loss and chronic microvascular ischemic changes. Dictated by: Palmer Joy M.D. on 07/16/2020 at 16:41 Approved by: Palmer Joy M.D. on 07/16/2020 at 16:45 Chest x-ray: Radiologist's Impression: Sotero Kasper 85 M [address] [address] XRay Report Signed Patient: Sotero Kasper WMR#: [id number] : 5Acct:[id number] Age/Sex: 85 / MDate of Service: 07/16/20 Loc: ED Accession Number: [id number] Procedure: XR chest 1V Ordering Provider: Priya Magdaleno D.O. PROCEDURE: XR CHEST 1V INDICATIONS: syncope vs. cva vs other TECHNIQUE: One view of the chest was acquired. COMPARISON: [facility], CR, XR CHEST 1V, 07/03/2020, 10:02. [facility], CR, XR CHEST 1V, 04/13/2020, 15:55. FINDINGS: Surgical changes and devices: Prior cervical fusion plate. Cardiac pacemaking device with dual chamber leads in normal position. Lungs and pleura: Lungs are clear. No pleural effusions or pneumothorax. Mediastinum: Mediastinal contours appear normal. Heart size is normal. Bones and chest wall: No suspicious bony lesions. Overlying soft tissues appear unremarkable. IMPRESSION: Postsurgical changes as noted, no aspiration or pneumonia seen. Source of syncopal episode is not identified. No trauma from syncope is found. Dictated by: Arnaldo Thompson M.D. on 07/16/2020 at 16:45 Approved by: Arnaldo Thompson M.D. on 07/16/2020 at 16:45 CTA - brain/neck: Radiologist's Impression: Sotero Kasper 85 M [address] [address] [address] Scan Report Signed Patient: Sotero Kasper WMR#: [id number] : 5Acct:[id number] Age/Sex: 85 / MDate of Service: 07/16/20 Loc: ED Accession Number: [id number] Procedure: CT angio head and neck Ordering Provider: Priya Magdaleno D.O. PROCEDURE: CT ANGIO HEAD AND NECK INDICATIONS: ? syncope vs other. TECHNIQUE: Noncontrast images were performed earlier in the day and not repeated. After the administration of intravenous contrast, 1 mm thick sections acquired from the aortic arch through the [place] of [place]. Post-contrast 4.5 mm thick sections then re-acquired from the foramen magnum to the vertex. 3-dimensional drazdht-upgigdiif-cetrplczfo (MIP) and/or volume rendering reformats were acquired of the central intracranial vasculature and neck separately. COMPARISON: [facility], US, US CAROTID DOPPLER BI, 04/13/2020, 18:52. [facility], CT, CT HEAD/BRAIN WO CON, 07/03/2020, 10:08. [facility], CT, CT HEAD/BRAIN WO CON, 07/06/2020, 15:57. [facility], CT, CT HEAD/BRAIN WO CON, 07/16/2020, 16:30. [facility], CT, CT ANGIO HEAD AND NECK, 07/06/2020, 18:15. FINDINGS: Image quality: Excellent. BRAIN: CSF spaces: Ventricles are normal in size and shape. Basal cisterns are patent. No extra-axial fluid collections. Brain: No midline shift. No intracranial bleeds or masses. Luciano-white matter interface appears intact. Skull and face: Calvarium and facial bones appear intact, without suspicious lesions. Orbits appear normal. Sinuses: Sinuses and mastoids are clear. HEAD CT ANGIOGRAPHY: Anterior circulation: Intracranial internal carotid arteries are normal in size and flow. The flow within the paired anterior cerebral arteries is normal and symmetric. The flow within the middle cerebral arteries is normal and symmetric. The anterior communicating artery is seen. No aneurysms are seen. Posterior circulation: The left vertebral artery is dominant to the right. The right vertebral artery is relatively diminutive and primarily terminates in the right posterior inferior cerebellar artery. There is a normal appearing basilar artery. There is a prominent right posterior communicating artery seen, with an accompanying diminutive right P1 segment. 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 Flow within the posterior cerebral arteries is normal and symmetric. No aneurysms are seen. NECK CT ANGIOGRAPHY: Carotid system: The great vessels demonstrate a conventional anatomy as they arise from the aortic arch. The origins of the common carotid arteries appear patent. The common carotid arteries demonstrate normal caliber and courses. The bifurcation regions demonstrate atherosclerotic calcification and irregularity. There is a high-grade stenosis of the right 80-90%) involving the origin of the left internal carotid artery. No hemodynamically significant stenosis is seen involving the right proximal internal carotid artery. Posterior circulation: The left vertebral artery is dominant to the right. The right vertebral artery is diminutive, yet without a roger focal stenosis identified. Soft tissues: Visualized neck soft tissues demonstrate no suspicious abnormalities. Bones: No suspicious bony lesions. Visualized cervical spine appears normally aligned. Anterior fixation hardware is seen C5 through C7. No findings of hardware failure or hardware loosening are seen. IMPRESSION: No significant change compared to the prior. 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 Incidental note is made of: Left vertebral artery dominant to the right, with a diminutive right vertebral artery The right vertebral artery largely terminates in the right posterior inferior cerebellar artery C5 through C7 cervical spine postoperative hardware Any quantitative measurements of stenosis were performed using NASCET criteria. Dictated by: Good Peña M.D. on 07/16/2020 at 17:02 Approved by: Good Peña M.D. on 07/16/2020 at 17:08 ECG Data Attestation: I personally reviewed and interpreted this ECG as follows: Prior ECG tracings: available for review Interpretation: Atrial paced rhythm with a rate of 69, NC 282, QRS of 178 QTC 480. 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 Patient has prior EKG from 07/03/20 appears similar to todays. [facility] Narrative Medical decision making narrative: Patient's labs show elevation in creatinine, he also has an elevated lactate at 5.2. Repeat is soon to be drawn. Initial head CT is negative for any acute changes, CTA shows no significant change compared to prior high-grade stenosis is again seen with left proximal ICA with incidental changes noted. Patient is attempting to give urine sample. His mentations has improved during his stay and his at bedside agrees and he feels much better, wide differential CVA vs. TIA, seizure, infectious etiology versus other. Discussed with Dr. Pratt for observation Discharge Plan Departure Patient Disposition: Admitted as Observation Clinical Impression: Acute alteration in mental status Referrals: Diane Howard MD [Primary Care Provider] -
[2020-07-16 16:54] LABS: INR 1.1 (0.9-1.3); Prothrombin Time 12.1 SECONDS (10.1-12.7)
[2020-07-16] MEDS: SODIUM CHLORIDE 0.9% 1,000 ML 1000 ML IV (16:55)
[2020-07-16 16:59] LABS: Alanine Aminotransferase 29 IU/L (<50); Albumin 4.1 g/dL (3.5-5.0); Albumin Globulin Ratio 1.5 (1.0-2.8); Alkaline Phosphatase 59 U/L (38-126); Aspartate Aminotransferase 26 IU/L (17-59); BUN Creatinine Ratio 15.3 (6-22); Bilirubin Total 0.7 mg/dL (0.2-1.3); Blood Urea Nitrogen 21 mg/dL (9-20); Calcium 9.4 mg/dL (8.4-10.2); Carbon Dioxide 26 mmol/L (22-32); Chloride 98 mmol/L (98-107); Creatine Kinase 45 U/L (55-170); D Dimer 321 ng/mL (<230); Estimated Glomerular Filt Rate 49.4 mL/min (>60); Globulin 2.7 g/dL (1.7-4.1); Glucose 138 mg/dL (80-110); HEMOLYSIS 38 (0-50); Magnesium 1.6 mg/dL (1.6-2.3); Potassium 4.7 mmol/L (3.4-5.1); Sodium 134 mmol/L (137-145); Total Protein 6.8 g/dL (6.3-8.2)
[2020-07-16] MEDS: ACETAMINOPHEN 325 MG TABLET 650 MG PO (17:08)
[2020-07-16 17:10] LABS: Add Manual Diff / Slide Review NO; Basophils Absolute Auto 0 /uL (0-100); Basophils Percent Auto 0.7 % (0-2); Eosinophils Absolute Auto 0 /uL (0-450); Eosinophils Percent Auto 0.7 % (2-4); Hematocrit 39.4 % (41-53); Hemoglobin 13.5 g/dL (13.5-17.5); Lymphocytes Absolute Auto 1700 /uL (1100-4500); Lymphocytes Percent Auto 25.9 % (25-40); Mean Corpuscular HGB Conc 34.2 % (30-36); Mean Corpuscular Hemoglobin 33.8 PG (26-34); Mean Corpuscular Volume 98.7 fL (80-100); Monocytes Absolute Auto 500 /uL (0-900); Neutrophils Absolute Auto 4300 /uL (1500-7000); Neutrophils Percent Auto 64.7 % (50-75); Red Cell Distribution Width 12.9 % (11.6-14.8); White Blood Cell Count 6.7 X10^3/uL (4.5-11.0)
[2020-07-16 17:11] LABS: NT-proBNP (BNP-Adult 18+) 289 pg/mL (<450); Troponin I < 0.012 ng/mL (0.01-0.034)
[2020-07-16 17:18] LABS: PTT Partial Thromboplastin Tim 20 SECONDS (26.4-36.2)
--- NOTE | 2020-07-16 17:24 | DI.CT.S_ITS ---
PROCEDURE: CT ANGIO HEAD AND NECK INDICATIONS: ? syncope vs other. TECHNIQUE: Noncontrast images were performed earlier in the day and not repeated. After the administration of intravenous contrast, 1 mm thick sections acquired from the aortic arch through the [place] of [place]. Post-contrast 4.5 mm thick sections then re-acquired from the foramen magnum to the vertex. 3-dimensional tbueejs-cauwajqzr-vnbwropnie (MIP) and/or volume rendering reformats were acquired of the central intracranial vasculature and neck separately. COMPARISON: [facility], US, US CAROTID DOPPLER BI, 04/13/2020, 18:52. [facility], CT, CT HEAD/BRAIN WO CON, 07/03/2020, 10:08. [facility], CT, CT HEAD/BRAIN WO CON, 07/06/2020, 15:57. [facility], CT, CT HEAD/BRAIN WO CON, 07/16/2020, 16:30. [facility], CT, CT ANGIO HEAD AND NECK, 07/06/2020, 18:15. FINDINGS: Image quality: Excellent. BRAIN: CSF spaces: Ventricles are normal in size and shape. Basal cisterns are patent. No extra-axial fluid collections. Brain: No midline shift. No intracranial bleeds or masses. Luciano-white matter interface appears intact. Skull and face: Calvarium and facial bones appear intact, without suspicious lesions. Orbits appear normal. Sinuses: Sinuses and mastoids are clear. HEAD CT ANGIOGRAPHY: Anterior circulation: Intracranial internal carotid arteries are normal in size and flow. The flow within the paired anterior cerebral arteries is normal and symmetric. The flow within the middle cerebral arteries is normal and symmetric. The anterior communicating artery is seen. No aneurysms are seen. Posterior circulation: The left vertebral artery is dominant to the right. The right vertebral artery is relatively diminutive and primarily terminates in the right posterior inferior cerebellar artery. There is a normal appearing basilar artery. There is a prominent right posterior communicating artery seen, with an accompanying diminutive right P1 segment. 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 Flow within the posterior cerebral arteries is normal and symmetric. No aneurysms are seen. NECK CT ANGIOGRAPHY: Carotid system: The great vessels demonstrate a conventional anatomy as they arise from the aortic arch. The origins of the common carotid arteries appear patent. The common carotid arteries demonstrate normal caliber and courses. The bifurcation regions demonstrate atherosclerotic calcification and irregularity. There is a high-grade stenosis of the right 80-90%) involving the origin of the left internal carotid artery. No hemodynamically significant stenosis is seen involving the right proximal internal carotid artery. Posterior circulation: The left vertebral artery is dominant to the right. The right vertebral artery is diminutive, yet without a roger focal stenosis identified. Soft tissues: Visualized neck soft tissues demonstrate no suspicious abnormalities. Bones: No suspicious bony lesions. Visualized cervical spine appears normally aligned. Anterior fixation hardware is seen C5 through C7. No findings of hardware failure or hardware loosening are seen. IMPRESSION: No significant change compared to the prior. 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 Incidental note is made of: Left vertebral artery dominant to the right, with a diminutive right vertebral artery The right vertebral artery largely terminates in the right posterior inferior cerebellar artery C5 through C7 cervical spine postoperative hardware Any quantitative measurements of stenosis were performed using NASCET criteria. Dictated by: Good Peña M.D. on 07/16/2020 at 17:02 Approved by: Good Peña M.D. on 07/16/2020 at 17:08
[2020-07-16] MEDS: ASPIRIN 81 MG CHEW TAB 324 MG PO (17:30)
[2020-07-16 17:39] LABS: Lactate (Lactic Acid) 5.2 mmol/L (0.7-2.1)
[2020-07-16] MEDS: SODIUM CHLORIDE 0.9% 1,000 ML 125 ML IV (18:13)
[2020-07-16 18:32] LABS: COVID19 -Nasal RAPID Negative (Negative)
[2020-07-16 18:33] LABS: Procalcitonin < 0.05 ng/mL (<0.5)
[2020-07-16 18:43] LABS: Reflexed Lactate in 2 Hours Y
[2020-07-16 19:44] LABS: Lactate 2HR (Lactic Acid Rflx) 3.4 mmol/L (0.7-2.1)
[2020-07-16 19:45] LABS: Bacteria Urine None Seen; RBC Urine None Seen (0-5/HPF)
[2020-07-16 19:49] LABS: Appearance Urine UA CLEAR; Bilirubin Urine UA NEGATIVE (NEGATIVE); Color Urine UA YELLOW; Glucose Urine UA NEGATIVE (Negative); Ketones Urine UA TRACE (NEGATIVE); Leukocyte Esterase Urine UA NEGATIVE (NEGATIVE); Nitrite Urine UA NEGATIVE (Negative); Occult Blood Urine UA NEGATIVE (Negative); Protein Urine UA NEGATIVE (Negative); Urobilinogen Urine UA 0.2 E.U./dL (0.2); pH Urine UA 6.5 (4.5-8.0)
[2020-07-16 19:57] LABS: Culture Indicated Urine Cult Not Indicated; Squamous Epithelial Cell Urine 0-1 /HPF (0-5/HPF); WBC Urine 0-1/HPF (0-5/HPF)
--- NOTE | 2020-07-16 22:34 | PC.NURSE ---
CBG 110,taken at 2030. RN notified.
--- NOTE | 2020-07-16 22:45 | PC.NURSE ---
2239 Pt had 13 beats of Vtach at a rate of 120, pt is asymptomatic, was standing at the bedside urinating. VADIM Hess notified
[2020-07-16] MEDS: AMIODARONE 200 MG TABLET 100 MG PO (23:29)
[2020-07-16] MEDS: METFORMIN HCL 500 MG TABLET PO (23:30)
[2020-07-16] MEDS: SERTRALINE 50 MG TABLET 12.5 MG PO (23:30)
--- NOTE | 2020-07-17 02:37 | PC.NURSE ---
Patient seen and assessed at 2347. Is alert and oriented with NIH of 0. Breath sounds CTA with RA sat of 98%. HRR; telemetry reading was SR with 1st degree AVB + BBB. Denies nausea. BT present and abdomen is soft. Denies dysuria, frequency or urgency; stands at bedside with 1 assist to use urinal. Is able to turn himself in bed. Wearing bilateral calf SCD's. Reports falling within past 3 months due to bilateral LE weakness; fall risk score is high and bed alarm is activated. Denies pain.
[2020-07-17 04:00] VITALS: BP 149/73; PULSE 71; RESP 16; TEMP 36.7; O2SAT 96
--- NOTE | 2020-07-17 05:42 | P.HP_ITS ---
History of Present Illness History of Present Illness Date Patient Seen: 07/17/20 Time Patient Seen: 05:42 Chief complaint: Syncope, lightheaded Narrative: 85-year-old male with history of CV/TIA is admitted from the ED for observation after witnessed loss of consciousness at home. Patient was having a discussion with a home healthcare worker about his POLST status when he felt dizzy and lost consciousness for approximately 5 minutes. Per ED report, patient was breathing the entire time but did not respond to verbal or tactile stimulus. By the time paramedics arrived, patient was slow to answer questions and not back to his baseline mental status. Vital signs upon admission to the ED included temperature of 98?, pulse 69, respirations 8, blood pressure 124/81, O2 saturation 99% on room air. Laboratory workup significant for low sodium at 134., elevated lactate at 3.4, and a negative COVID test. Notably, CT head/brain and chest x-ray were negative. CT angiogram of the head/neck showed a known 80-90% high-grade stenosis in the left internal carotid artery. At time of transfer to floor, patient was back to his mental baseline. 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 Arteaga, on 06/29/2020 and had a near syncopal episode in the office. Vital signs were able to be checked and patient was diagnosed with orthostatic hypotension dysautonomic syndrome. He was sent to the ED at that time for fluid hydration and prescribed midodrine 2.5 mg p.o. t.i.d. as needed. Midodrine was stopped as an outpatient due to excessively high blood pressures with use. reports that his blood pressure was very elevated 2 days prior to this event in the 200/100 range. Nursing reports an uneventful night except for an 8 minute run of V-tach that occurred while patient was urinating. He was completely asymptomatic and denied any chest pain or shortness of breath. This morning, patient reports no motor or sensory deficits. He has a good appetite and denies any nausea vomiting. No chest pain or dyspnea. Both he and his feel that he is back to his baseline. Patient History Medical History Anxiety (Chronic) CAD (coronary artery disease) (Chronic) DDD (degenerative disc disease), cervical (Chronic) Depression (Chronic) Diabetes (Resolved) Dyslipidemia (Chronic) Dysuria (Chronic) Elevated serum homocysteine level (Chronic) History of angina (Chronic) History of CVA (cerebrovascular accident) (Resolved) History of dizziness (Resolved) History of esophageal reflux (Resolved) History of fatigue (Resolved) History of hematuria (Resolved) Impotence (Chronic) Lumbosacral radiculopathy at L5 (Chronic) Memory deficit (Chronic) Neuropathy of both feet (Chronic) Osteoarthritis (Chronic) Pacemaker (Chronic ~2013) Paroxysmal A-fib (Chronic) 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) RBBB (Chronic) Renal insufficiency (Chronic) Sick sinus syndrome (Chronic) Sleep apnea (Chronic ~2012) Spinal stenosis in cervical region (Chronic) Spinal stenosis of lumbar region (Chronic) TIA (transient ischemic attack) (Acute) Urinary retention (Chronic) Surgical History H/O laminectomy (Resolved) H/O shoulder surgery (Resolved) H/O thumb surgery (Resolved) History of appendectomy (Resolved) History of bladder surgery (Resolved) History of cardiac cath (Resolved ~2012) History of cholecystectomy (Resolved ~2012) History of cystoscopy (Resolved) History of lumbar fusion (Resolved) History of tonsillectomy (Resolved) History of vasectomy (Resolved) Status post right foot surgery (Resolved) Family & Social History Social History: household members spouse Prior Living Arrangements House lives independently Yes caregiver/support person No Safety & Behavioral: Feels Safe in Current Yes Environment Been Physically Hurt or No Threatened By a Person Suicidal Ideation Description None Suicide Plan Description No Plan Tobacco & Substance use: Smoking Status Never smoker alcohol intake current alcohol intake frequency holiday/special occasion Substance Use Type does not use Meds Home Medications and Allergies Home Medications Medication Instructions Recorded Confirmed Type nitroglycerin 0.4 mg SL Q5-15M PRN #30 tab 06/29/18 07/16/20 Rx levothyroxine 75 mcg PO DAILY 08/27/18 07/16/20 History metformin 500 mg PO BID 08/27/18 07/16/20 History amiodarone 200 mg tablet 100 mg PO BID tab 12/24/18 07/16/20 History aspirin 81 mg tablet,delayed 81 mg PO DAILY 12/24/18 07/16/20 History release atorvastatin 80 mg tablet 20 mg PO DAILY tab 12/24/18 07/16/20 History magnesium chloride 64 mg PO DAILY 01/22/19 07/16/20 History finasteride 5 mg PO BEDTIME 07/06/20 07/16/20 History sertraline [Zoloft] 12.5 mg PO BEDTIME #30 tab 07/10/20 07/16/20 Rx Allergies Allergy/AdvReac Type Severity Reaction Status Date / Time Jpcyxma-Eny-Ofg Reductase Allergy Intermediate MUSCLE PAIN Verified 07/03/20 09:44 Inhibitor [UTJOTVA-AJC-EVH REDUCTASE INHIBITOR] piroxicam [PIROXICAM] Allergy Mild NAUSEA, Verified 07/03/20 09:44 VOMITING dabigatran etexilate AdvReac Hematuria Verified 07/03/20 09:44 Review of Systems Review of Systems ROS: Yes All systems reviewed with the patient and are negative except as otherwise documented Exam Vital Signs (past 8 hours): - 07/16/20 23:33 07/17/20 04:00 Temperature 97.5 F L 98.0 F Pulse Rate 71 71 Respiratory Rate 16 16 Blood Pressure 136/65 149/73 H Pulse Oximetry 98 96 Oxygen Delivery Method Room Air Oxygen Flow Rate 0 Narrative Exam Narrative: GENERAL: Alert and oriented, appearing stated age and in no acute distress. HEENT: Head normocephalic/atraumatic. Pupils equal, round, and reactive to light and accomodation. Extraocular muscles intact. Tympanic membranes clear. Nasal mucosa moist, septum midline. Oral mucosa moist, no lesions. Neck soft and supple, no lymphadenopathy. LUNGS: Clear to ausculation bilaterally, no wheezes, rhonchi or rales. CV: Irregularly irregular, no audible murmurs, rubs or gallops. ABDOMEN: Soft, non-tender, non-distended, no organomegaly. Positive bowel sounds. EXTREMITIES: No clubbing, cyanosis, or edema. NEURO: Cranial nerves II through XII grossly intact, no focal deficits. PSYCH: Alert and oriented x 3. SKIN: No concerning lesions. Objective Labs Result Diagrams: 07/17/20 05:50 07/17/20 05:50 Labs: Laboratory Results - last 24 hr 07/16/20 07/16/20 07/16/20 16:00 16:00 16:00 WBC 6.7 RBC 4.00 L Hgb 13.5 Hct 39.4 L MCV 98.7 MCH 33.8 MCHC 34.2 RDW 12.9 Plt Count TNP Neut % (Auto) 64.7 Lymph % (Auto) 25.9 [place] % (Auto) 8.0 Eos % (Auto) 0.7 L Baso % (Auto) 0.7 Neut # (Auto) 4300 Lymph # (Auto) 1700 [place] # (Auto) 500 Eos # (Auto) 0 Baso # (Auto) 0 PT 12.1 INR 1.1 APTT D-Dimer 321 H Sodium 134 L Potassium 4.7 Chloride 98 Carbon Dioxide 26 BUN 21 H Creatinine 1.37 H Estimated GFR 49.4 L BUN/Creatinine Ratio 15.3 Glucose 138 H Lactate Calcium 9.4 Magnesium 1.6 Total Bilirubin 0.7 AST 26 ALT 29 Alkaline Phosphatase 59 Total Creatine Kinase 45 L CK-MB (CK-2) TNP CK-MB (CK-2) Rel Index TNP Troponin I < 0.012 NT-Pro-B Natriuret Pep 289 Total Protein 6.8 Albumin 4.1 Globulin 2.7 Albumin/Globulin Ratio 1.5 Procalcitonin Urine Color Urine Appearance Urine pH Ur Specific [place] Urine Protein Urine Glucose (UA) Urine Ketones Urine Occult Blood Urine Nitrate Urine Bilirubin Urine Urobilinogen Ur Leukocyte Esterase Urine RBC Urine WBC Ur Squamous Epith Cells Urine Bacteria Ur Culture Indicated? COVID-19 PCR 07/16/20 07/16/20 07/16/20 16:00 16:00 16:00 WBC RBC Hgb Hct MCV MCH MCHC RDW Plt Count Neut % (Auto) Lymph % (Auto) [place] % (Auto) Eos % (Auto) Baso % (Auto) Neut # (Auto) Lymph # (Auto) [place] # (Auto) Eos # (Auto) Baso # (Auto) PT INR APTT 20 L D D-Dimer Sodium Potassium Chloride Carbon Dioxide BUN Creatinine Estimated GFR BUN/Creatinine Ratio Glucose Lactate 5.2 H* Calcium Magnesium Total Bilirubin AST ALT Alkaline Phosphatase Total Creatine Kinase CK-MB (CK-2) CK-MB (CK-2) Rel Index Troponin I NT-Pro-B Natriuret Pep Total Protein Albumin Globulin Albumin/Globulin Ratio Procalcitonin < 0.05 Urine Color Urine Appearance Urine pH Ur Specific [place] Urine Protein Urine Glucose (UA) Urine Ketones Urine Occult Blood Urine Nitrate Urine Bilirubin Urine Urobilinogen Ur Leukocyte Esterase Urine RBC Urine WBC Ur Squamous Epith Cells Urine Bacteria Ur Culture Indicated? COVID-19 PCR 07/16/20 07/16/20 07/16/20 18:11 19:20 19:35 WBC RBC Hgb Hct MCV MCH MCHC RDW Plt Count Neut % (Auto) Lymph % (Auto) [place] % (Auto) Eos % (Auto) Baso % (Auto) Neut # (Auto) Lymph # (Auto) [place] # (Auto) Eos # (Auto) Baso # (Auto) PT INR APTT D-Dimer Sodium Potassium Chloride Carbon Dioxide BUN Creatinine Estimated GFR BUN/Creatinine Ratio Glucose Lactate 3.4 H Calcium Magnesium Total Bilirubin AST ALT Alkaline Phosphatase Total Creatine Kinase CK-MB (CK-2) CK-MB (CK-2) Rel Index Troponin I NT-Pro-B Natriuret Pep Total Protein Albumin Globulin Albumin/Globulin Ratio Procalcitonin Urine Color Yellow Urine Appearance Clear Urine pH 6.5 Ur Specific [place] 1.010 Urine Protein Negative Urine Glucose (UA) Negative Urine Ketones Trace H Urine Occult Blood Negative Urine Nitrate Negative Urine Bilirubin Negative Urine Urobilinogen 0.2 Ur Leukocyte Esterase Negative Urine RBC None seen Urine WBC 0-1/hpf Ur Squamous Epith Cells 0-1 /hpf Urine Bacteria None seen Ur Culture Indicated? Cult not indicated COVID-19 PCR Negative Assessment & Plan Assessment & Plan narrative: 1. Loss of consciousness, differential diagnosis includes TIA versus syncope versus other. Suspect that this is secondary to his known orthostatic hypotension dysautonomic syndrome. Plan: Reassuring that patient has had a negative CT head/brain and no new changes on CT angiogram of the head/neck. As he has a pacemaker, cannot order an MRI but will proceed with an echo today to complete his stroke workup. Will continue with telemetry and close observation. He is already on high-dose atorvastatin. Blood pressure was initially elevated but normal overnight, will watch closely. Plan for discharge later today if echo is unremarkable. Continue aspirin 81 mg p.o. q.day. at the patient's events occurred during a period of uncontrolled blood pressure which is not usual for him, will discharge him on a as needed carvedilol to be used when SBP is greater than 180 and/or DBP greater than 105. 2. History of CVA/TIA Plan: Please see #1. 3. Hyperlipidemia, chronic Plan: Continue home atorvastatin 80 mg p.o. q.h.s.. 4. Atrial fibrillation, paroxysmal Plan: Continue amiodarone 100 mg p.o. b.i.d. and aspirin 81 mg p.o. q.day. Telemetry. Dr. Arteaga, cardiology consulting. Due to patient's left atrial occlusion, does not need to be on anticoagulation. 5. Diabetes mellitus type 2 Plan: Diabetic diet, continue home metformin. 6. Hypothyroidism Plan: Continue home levothyroxine 75 mcg p.o. q.day 7. Benign prostatic hypertrophy with urinary retention, chronic Plan: Continue finasteride 5 mg p.o. q.h.s.. 8. Coronary artery disease, chronic Plan: Continue statin as noted above as well as nitro as needed. 9. Acute renal insufficiency, likely secondary to dehydration, has normalized -Cr 1.37 on admission --> 1.15 Plan: Will watch closely. 10. History of arrhythmia with sick sinus syndrome and high-grade AV block, pacemaker since 2013 Plan: Avoiding MRI. 11. Depression/anxiety Plan: Continue home sertraline 12.5 mg p.o. q.h.s. DVT prophylaxis: SCDs Code status: DNR/DNI COVID: Negative Disposition: anticipate late discharge if echo unremarkable. Quality VTE Deep Vein Thrombosis/Pulmonary Embolism Present on Admission: No
[2020-07-17] MEDS: LEVOTHYROXINE 75 MCG TABLET PO (06:31)
[2020-07-17 06:42] LABS: Add Manual Diff / Slide Review NO; Basophils Absolute Auto 0 /uL (0-100); Basophils Percent Auto 0.8 % (0-2); Eosinophils Absolute Auto 100 /uL (0-450); Eosinophils Percent Auto 1.4 % (2-4); Hematocrit 38.2 % (41-53); Hemoglobin 12.9 g/dL (13.5-17.5); Lymphocytes Absolute Auto 1600 /uL (1100-4500); Lymphocytes Percent Auto 27.4 % (25-40); Mean Corpuscular HGB Conc 33.8 % (30-36); Mean Corpuscular Hemoglobin 33.6 PG (26-34); Mean Corpuscular Volume 99.2 fL (80-100); Monocytes Absolute Auto 600 /uL (0-900); Monocytes Percent Auto 10.8 % (3-14); Neutrophils Absolute Auto 3500 /uL (1500-7000); Neutrophils Percent Auto 59.6 % (50-75); Platelet Count 205 X10^3/uL (150-400); Red Blood Cell Count 3.85 X10^6/uL (4.5-5.9); White Blood Cell Count 5.9 X10^3/uL (4.5-11.0)
[2020-07-17 06:48] LABS: BUN Creatinine Ratio 13.9 (6-22); Blood Urea Nitrogen 16 mg/dL (9-20); Calcium 9.1 mg/dL (8.4-10.2); Carbon Dioxide 28 mmol/L (22-32); Chloride 101 mmol/L (98-107); Estimated Glomerular Filt Rate > 60.0 mL/min (>60); Glucose 123 mg/dL (80-110); HEMOLYSIS < 15 (0-50); Potassium 4.7 mmol/L (3.4-5.1); Sodium 135 mmol/L (137-145)
[2020-07-17 08:10] VITALS: BP 139/78; PULSE 70; RESP 16; TEMP 36.1; O2SAT 98
--- NOTE | 2020-07-17 09:40 | PT.IIE ---
Surgical History (Last Reviewed 07/16/20 @ 16:22 by Priya Magdaleno DO) H/O laminectomy (Resolved) H/O shoulder surgery (Resolved) H/O thumb surgery (Resolved) History of appendectomy (Resolved) History of bladder surgery (Resolved) History of cardiac cath (Resolved ~2012) History of cholecystectomy (Resolved ~2012) History of cystoscopy (Resolved) History of lumbar fusion (Resolved) History of tonsillectomy (Resolved) History of vasectomy (Resolved) Status post right foot surgery (Resolved) Medical History (Last Reviewed 07/16/20 @ 16:22 by Priya Magdaleno DO) Anxiety (Chronic) CAD (coronary artery disease) (Chronic) DDD (degenerative disc disease), cervical (Chronic) Depression (Chronic) Diabetes (Resolved) Dyslipidemia (Chronic) Dysuria (Chronic) Elevated serum homocysteine level (Chronic) History of angina (Chronic) History of CVA (cerebrovascular accident) (Resolved) History of dizziness (Resolved) History of esophageal reflux (Resolved) History of fatigue (Resolved) History of hematuria (Resolved) Impotence (Chronic) Lumbosacral radiculopathy at L5 (Chronic) Memory deficit (Chronic) Neuropathy of both feet (Chronic) Osteoarthritis (Chronic) Pacemaker (Chronic ~2013) Paroxysmal A-fib (Chronic) 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) RBBB (Chronic) Renal insufficiency (Chronic) Sick sinus syndrome (Chronic) Sleep apnea (Chronic ~2012) Spinal stenosis in cervical region (Chronic) Spinal stenosis of lumbar region (Chronic) TIA (transient ischemic attack) (Acute) Urinary retention (Chronic) Physical Therapy Inpatient Evaluation/Re-Eval M1 PT/OT-IP Prior Functional Status Start: 07/17/20 12:13 Freq: NEEDED Status: Active Protocol: Document 07/17/20 09:40 AB (Rec: 07/17/20 12:24 AB [id number]) Medical Review Prior Functional Status Medical History Reviewed Yes Communication able to make needs known Mobility and Gait pt stated that he is modified independent with all mobilities and ambulation using FWW. spouse stated that she provides SBA. Social History Household Members spouse Living Arrangements Senior Living Facility Number of Stairs To Enter/Railing? pt lives at [facility] living Home Environment High Toilet,Walk in Shower, Elevator Home Equipment Front Wheel Walker,Straight Cane,Shower Seat without Backrest,Hand Held Shower,Grab Bars Near Toilet,Grab Bars In Shower Employment Status Retired M2 PT-IP Current Condition Start: 07/17/20 12:13 Freq: NEEDED Status: Active Protocol: Document 07/17/20 09:40 AB (Rec: 07/17/20 12:24 AB [id number]) Physical Therapy Current Condition Current Condition Evaluation Date 07/17/20 Treatment Diagnosis altered mental status; difficulty in walking Onset Date 07/16/20 M3 PT-IP Subjective Start: 07/17/20 12:13 Freq: NEEDED Status: Active Protocol: Document 07/17/20 09:40 AB (Rec: 07/17/20 12:24 AB [email or web address]) Subjective Physical Therapy Visit Type Type Initial Evaluation Visit Start Time 09:40 Visit Stop Time 10:03 Total Visit Minutes 23 Number of DIRECTOR OF [employer]ATION Visits 0 Physical Therapy Visit Comments Patient Comments pt is agreeable to do PT Therapy Pain Assessment Pain Present Pain Present Denied Pain M4 PT-IP Mobility and Gait Start: 07/17/20 12:13 Freq: NEEDED Status: Active Protocol: Document 07/17/20 09:40 AB (Rec: 07/17/20 12:24 AB [email or web address]) PT-Bed Mobility Assessment Supine to Sit Supine to Sit Standby Assistance Sit to Supine Sit to Supine Standby Assistance PT-Transfer Assessment Sit to and From Stand Sit to and from Stand Contact Guard Assistance,Use of Upper Extremities Equipment Transfer Assistive Device Gait Belt,Front Wheeled Walker Orthotic/Prosthetic Devices or Brace: No Transfers Transfer Destination Bed Transfer Technique ambulated using FWW Transfer Ability Level of Assist Contact Guard Assistance Comments Mobility Comments pt sitting on chair and agreed to do PT. BP in sittin/ 78. completed sit to stand CGA and ambulation in room using FWW 40 ft CGA. pt requested to go back to bed and ambulated tot he bed. completed bed mobiltiy SBA. positioned pt in bed. call light and table placed within reach. Gait Assessment Gait Gait Assistance Required: Contact Guard Assist Distance (Feet) 40 Able to Maintain Weight Bearing Status Yes During Gait Assistive Devices Assistive Device Gait Belt,Front Wheeled Walker Orthotic/Prosthetic Devices or Brace: No Gait Deviations General Gait Pattern Antalgic,Decreased Stride Length,Decreased Feet Clearance,Step-to Gait Factors Limiting Gait Function Factors Limiting Gait Function Decreased Activity Tolerance, Decreased Strength,Difficulty Following Directions,Poor Balance,Poor Safety Awareness PT-Balance Assessment Sitting Balance and Reactions Static Sitting Balance Ability Good Dynamic Sitting Balance Ability Good Standing Balance and Reactions Static Standing Balance Ability Fair Dynamic Standing Balance Ability Fair Device Used FWW M5 PT-IP Objective Assessments Start: 07/17/20 12:13 Freq: NEEDED Status: Active Protocol: Document 07/17/20 09:40 AB (Rec: 07/17/20 12:24 AB [id number]) Orientation Orientation/Cognition Level of Alertness Alert Orientation Name,Place,Situation Language Function Ability Hard of Hearing Safety Awareness Decreased Safety Awareness Gross Range of Motion Lower Extremity ROM Assessment Within Functional Limits Strength Lower Extremity Strength Hip 4-/5 Knee 4-/5 Coordination Assessment Gross Coordination Gross Coordination WNL Muscle Tone Muscle Tone WNL Yes M6 PT-IP Treatment Start: 07/17/20 12:13 Freq: NEEDED Status: Active Protocol: Document 07/17/20 09:40 AB (Rec: 07/17/20 12:24 AB [email or web address]) Physical Therapy Treatment Education Education Provided Safety M7 PT-IP Assessment and Plan Start: 07/17/20 12:13 Freq: NEEDED Status: Active Protocol: Document 07/17/20 09:40 AB (Rec: 07/17/20 12:24 AB [email or web address]) PT Summary Assessment and Plan Potential Rehabilitation Potential Good Status of Condition at Evaluation Stable Summary Impairments Pain,ROM,Strength,Balance, Coordination,Sensation,Tone, Cognition,Bed Mobility, Transfers,Gait,Activity Tolerance Assessment Summary pt requiring CGA with mobility . pt was just admitted here at the hospital 07/08-07/10 and had received PT intervention. caregiver training was provided at that time. spouse plans to continue to assist pt as needed. pt may go home when medically stable. Goals Bed Mobility Goal Independent Transfer Goal Independent,Front Wheeled Walker Gait Goal Independent,Front Wheel Walker Gait Distance 100 Days to Meet Goals 5 Frequency of Treatment Frequency Of Treatment Once a Day Treatment Plan Physical Therapy Treatment Plan Bed Mobility Training,Transfer Training,Gait Training, Therapeutic Exercise,Balance Retraining,Discharge Planning, Hot or Cold Pack,Neuromuscular Re-ed,Coordination Retraining Recommendations To Nursing Amount of Assist Needed 1 Person Assist Discharge Recommendations PT Discharge Recommendations Home with Assistance, Outpatient PT Transportation Needs at Discharge Private Vehicle
[2020-07-17] MEDS: METFORMIN HCL 500 MG TABLET PO ×2 (09:45→18:22)
[2020-07-17] MEDS: ATORVASTATIN 20 MG TABLET PO (09:45)
[2020-07-17] MEDS: AMIODARONE 100 MG TABLET PO ×2 (09:45→20:43)
[2020-07-17] MEDS: MIDODRINE HCL 5 MG TABLET 2.5 MG PO (09:45)
[2020-07-17] MEDS: ASPIRIN EC 81 MG TABLET PO (09:45)
[2020-07-17 10:12] LABS: Reflexed Lactate in 2 Hours Y
[2020-07-17 10:49] LABS: Lactate 2HR (Lactic Acid Rflx) 3.4 mmol/L (0.7-2.1)
--- NOTE | 2020-07-17 11:47 | PC.NURSE ---
Addendum entered by Tiana Bailey R.N. 07/17/20 14:39: patient had several runs of vtach between 1222 and 1224. is aware and ordered some lab work. He did become nauseous but has been fine ever since. Up to use the urinal once for this RN and now back to bed. Echo is complete. Original Note: Patient is doing well this morning, no syncopal episodes and blood pressure has been wnl. He is up with 1 person assist and walker, his has been helping him to the bathroom and feels comfortable doing so. He is voiding and has had 2 bowel movement of normal consistency. Sitting up in the chair for most of the shift. Resting comfortably, BS this [id number]. CTM
[2020-07-17 12:12] VITALS: BP 170/93; PULSE 70; RESP 16; TEMP 36.4; O2SAT 98
[2020-07-17 14:19] LABS: Add Manual Diff / Slide Review NO; Basophils Absolute Auto 0 /uL (0-100); Basophils Percent Auto 0.8 % (0-2); Eosinophils Absolute Auto 0 /uL (0-450); Eosinophils Percent Auto 0.7 % (2-4); Hematocrit 39.2 % (41-53); Lymphocytes Absolute Auto 1200 /uL (1100-4500); Lymphocytes Percent Auto 21.6 % (25-40); Mean Corpuscular HGB Conc 33.2 % (30-36); Mean Corpuscular Hemoglobin 32.9 PG (26-34); Mean Corpuscular Volume 99.4 fL (80-100); Monocytes Absolute Auto 500 /uL (0-900); Monocytes Percent Auto 8.6 % (3-14); Neutrophils Absolute Auto 3900 /uL (1500-7000); Neutrophils Percent Auto 68.3 % (50-75); Platelet Count 215 X10^3/uL (150-400); Red Blood Cell Count 3.95 X10^6/uL (4.5-5.9); White Blood Cell Count 5.7 X10^3/uL (4.5-11.0)
[2020-07-17 14:31] LABS: Alanine Aminotransferase 27 IU/L (<50); Albumin Globulin Ratio 1.5 (1.0-2.8); Alkaline Phosphatase 64 U/L (38-126); Aspartate Aminotransferase 25 IU/L (17-59); Bilirubin Total 0.7 mg/dL (0.2-1.3); Blood Urea Nitrogen 16 mg/dL (9-20); Calcium 9.3 mg/dL (8.4-10.2); Carbon Dioxide 25 mmol/L (22-32); Chloride 99 mmol/L (98-107); Estimated Glomerular Filt Rate > 60.0 mL/min (>60); Globulin 2.6 g/dL (1.7-4.1); Glucose 131 mg/dL (80-110); HEMOLYSIS < 15 (0-50); Magnesium 1.6 mg/dL (1.6-2.3); Potassium 4.6 mmol/L (3.4-5.1); Sodium 134 mmol/L (137-145); Total Protein 6.6 g/dL (6.3-8.2)
[2020-07-17 14:42] LABS: Troponin I < 0.012 ng/mL (0.01-0.034)
[2020-07-17 14:55] LABS: Phosphorous 3.4 mg/dL (2.3-3.7)
--- NOTE | 2020-07-17 15:46 | OT.IP.EVAL ---
Past Medical History (Last Reviewed 07/16/20 @ 16:22 by Priya Magdaleno DO) Anxiety (Chronic) CAD (coronary artery disease) (Chronic) DDD (degenerative disc disease), cervical (Chronic) Depression (Chronic) Diabetes (Resolved) Dyslipidemia (Chronic) Dysuria (Chronic) Elevated serum homocysteine level (Chronic) History of angina (Chronic) History of CVA (cerebrovascular accident) (Resolved) History of dizziness (Resolved) History of esophageal reflux (Resolved) History of fatigue (Resolved) History of hematuria (Resolved) Impotence (Chronic) Lumbosacral radiculopathy at L5 (Chronic) Memory deficit (Chronic) Neuropathy of both feet (Chronic) Osteoarthritis (Chronic) Pacemaker (Chronic ~2013) Paroxysmal A-fib (Chronic) 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) RBBB (Chronic) Renal insufficiency (Chronic) Sick sinus syndrome (Chronic) Sleep apnea (Chronic ~2012) Spinal stenosis in cervical region (Chronic) Spinal stenosis of lumbar region (Chronic) TIA (transient ischemic attack) (Acute) Urinary retention (Chronic) Surgical History (Last Reviewed 07/16/20 @ 16:22 by Priya Magdaleno DO) H/O laminectomy (Resolved) H/O shoulder surgery (Resolved) H/O thumb surgery (Resolved) History of appendectomy (Resolved) History of bladder surgery (Resolved) History of cardiac cath (Resolved ~2012) History of cholecystectomy (Resolved ~2012) History of cystoscopy (Resolved) History of lumbar fusion (Resolved) History of tonsillectomy (Resolved) History of vasectomy (Resolved) Status post right foot surgery (Resolved) Occupational Therapy Inpatient Evaluation/Re-Eval M1 PT/OT-IP Prior Functional Status Start: 07/17/20 12:13 Freq: NEEDED Status: Active Protocol: Document 07/17/20 16:10 CGR (Rec: 07/17/20 16:49 CGR [email or web address]) Medical Review Prior Functional Status Medical History Reviewed Yes Communication able to make needs known Mobility and Gait pt stated that he is modified independent with all mobilities and ambulation using FWW. spouse stated that she provides SBA or min a for sit to stand but that pt has been doing better lately. Activities of Daily Living and IADL's Pt needed assist for showering and dressing. Social History Household Members spouse Living Arrangements Senior Living Facility Number of Floors (Floors) One Floor Number of Stairs To Enter/Railing? pt lives at [facility] independent living Home Environment High Toilet,Walk in Shower, Elevator Home Equipment Front Wheel Walker,Straight Cane,Shower Seat without Backrest,Hand Held Shower,Grab Bars Near Toilet,Grab Bars In Shower Employment Status Retired Additional Social History Comment Pt's is very supportive. M2 OT-IP Current Condition Start: 07/17/20 16:10 Freq: Status: Active Protocol: Document 07/17/20 16:10 CGR (Rec: 07/17/20 16:49 CGR [email or web address]) Occupational Therapy Current Condition Current Condition Evaluation Date 07/17/20 Treatment Diagnosis syncope Diagnosis Onset Date 07/17/20 M3 OT- IP Subjective and Pain Start: 07/17/20 16:10 Freq: Status: Active Protocol: Document 07/17/20 16:10 CGR (Rec: 07/17/20 16:49 CGR [email or web address]) OT- Subjective Occupational Therapy Visit Type Type Initial Evaluation Visit Start Time 15:05 Visit Stop Time 15:46 Total Visit Minutes 41 Notes Pts present throughout. BP Pos HR Time 144/53 supine 72 1505 111/65 sit 70 1507 92/47 stand 72 1509 120/64 stand 76 1511 OT Pain Assessment Pain When Pain Assessed At Rest Pain Present Pain Present Denied Pain M4 OT- IP ADL's Start: 07/17/20 16:10 Freq: Status: Active Protocol: Document 07/17/20 16:10 CGR (Rec: 07/17/20 16:49 CGR [email or web address]) OT [id number] Comments OT Self-Feeding Comments not meal time OT ADL-Grooming General Evaluation Grooming Ability Standby Assistance Areas Needing Assistance Retrieving/Set-up of Grooming Items,Face Washing Comments OT Grooming Comments seated in chair OT ADL-Oral Care General Eval Oral Care Ability Standby Assistance Areas of Assistance Brushing Teeth,Managing Dentures Comments Oral Care Comments seated in chair OT ADL-Dressing Comments OT Dressing Comments not performed OT ADL-Toileting General Evaluation Toileting Ability Standby Assistance Comments OT Toileting Comments standing for urination into urinal OT ADL-Bathing Comments OT Bathing Comments not performed M5 OT- IP IADL's Start: 07/17/20 16:10 Freq: Status: Active Protocol: Document 07/17/20 16:10 CGR (Rec: 07/17/20 16:49 CGR [email or web address]) OT-Instrumental Activities of Daily Living Deficits IADL Deficits Identified No Deficits Home Safety Awareness Awareness of Need for Assistance at Home Good Awareness Ability to Problem Solve Emergency Able to Problem Solve Situations Medication Management Medication Management Caregiver Administers Money Management Money Management Caregiver Provides Assistance Meal Preparation Meal Preparation Caregiver Provides Assist Senior Corporate Accountant Senior Corporate Accountant Caregiver Provides Assist Driving Driving Comments Pt no longer drives M6 OT- IP Functional Cognition Start: 07/17/20 16:10 Freq: Status: Active Protocol: Document 07/17/20 16:10 CGR (Rec: 07/17/20 16:49 CGR [email or web address]) Cognitive Factors Limiting Selfcare Function Cognitive Ability Level of Alertness Alert Patient Orientation Name,Age,Birthday,Month,Date, Year,Day of Week,Place, Situation Attention Span Ability Capable of Focused Attention, Capable of Sustained Attention Cognitive Tests SLUMS Pt participated in the SLUMS with a final score of 19/30. Pt had difficulty with simple addition and subtraction, short term memory remembering only 2 of the 5 objects listed earlier in the assessment. Pt had difficulty with placing the time on the clock face, and was able to answer only 2 of the 4 listening comprehension questions. Pt has a high school education, therefore, a score below 20 puts the pt into the demenita category. OT- Vision and Hearing OT- Hearing Assessment OT- Hearing Assessment WFL OT- Vision Assessment Visual Acuity WFL Visual Attentiveness WFL Occular Pursuits WFL Visual Convergence WFL M7 OT- IP Mobility and Balance Start: 07/17/20 16:10 Freq: Status: Active Protocol: Document 07/17/20 16:10 CGR (Rec: 07/17/20 16:49 CGR [email or web address]) OT- Bed Mobility Assessment Rolling Type of Rolling Roll to Right Level of Assistance Standby Assistance Supine to Sit Supine to Sit Assist Standby Assistance Scooting Scooting to Edge of Bed Standby Assistance OT-Transfer Assessment Sit to and From Stand Sit to and from Stand Standby Assistance Transfers Transfer Ability Standby Assistance Technique Transfer Destination Bed,Chair Transfer Technique Stand Step Pivot Devices Transfer Assistive Devices Gait Belt,Front Wheeled Walker OT- Balance Assessment Sitting Balance and Reactions Static Sitting Balance Ability Good Dynamic Sitting Balance Ability Fair M8 OT- IP Objective Assessments Start: 07/17/20 16:10 Freq: Status: Active Protocol: Document 07/17/20 16:10 CGR (Rec: 07/17/20 16:49 CGR [email or web address]) OT Gross Range of Motion Upper Extremity Range of Motion Assessment Within Functional Limits OT Strength Upper Extremity Strength Assessment Within Functional Limits Comments Strength Comments 4+/5 OT- Coordination Assessment Upper Extremity Finger to Nose Test Within Functional Limits Finger Tapping Test Within Functional Limits OT-Muscle Tone Assessment Muscle Tone WNL Yes OT Sensation Assessment Edema Edema Absent M9 OT- IP Assessment and Plan Start: 07/17/20 16:10 Freq: Status: Active Protocol: Document 07/17/20 16:10 CGR (Rec: 07/17/20 16:49 CGR [email or web address]) OT Summary Assessment and Plan Potential Rehabilitation Potential Excellent Analytic Complexity at Evaluation Low Summary OT Impairments Functional Cognition, Functional Mobility Progress Towards Goals Safe For Discharge,Goals Met Assessment Summary Pt presents as a low complexity eval s/p admit with syncope. Pt presents at his baseline for ADLs and functional mobility but is impacted by his orthostatic hypotension. No further acute OT needs at this time. Frequency of Treatment Frequency Of Treatment Discharge Discharge Recommendations OT Discharge Recommendations Home with 10/04 Assist Transportation Needs at Discharge Private Vehicle
--- NOTE | 2020-07-17 15:50 | CM.IDA ---
Initial DCP Assessment Note Patient is an 85 yo male, resident of [facility] in [place]. Patient presents after another syncopal episode at home. H/o CVA, pacemaker and h/o dizziness, unsteadiness and frequent falls, being seen outpt by cardiology and neurology. PCP: Dr Howard Payer: [facility] Patient admitted here 07.06.20-07.10.20 w/double vision headache and dizziness and was medically cleared, DC home w/spouse and [facility], close outpt f/u recommended. Met w/patient and his Siri, both very pleasant. Information from recent DCP assess remains same: Patient is Independent for the most part with ADLs but does assist with ADLs as needed. does all the driving. Patient uses FWW for ambulation and has a walk in shower and hand rails. Patient states he is tired of returning to the hospital so often. Discussed patient?s possible return home today or tomorrow, spouse requests resumption of [facility]. Then had lengthy discussion about predatory animal exterminator planning. Patient/spouse understand [facility] is indp. apts only, this BARIATRIC COORDINATOR strongly encouraged patient/spouse to consider alternative living options that offer ?aging in place? w/increase in assist as care needs increase. Patient and spouse resistant but agree they will need additional help ?at some point?. Siri states she has the Senior Resource Guide. Patient/spouse also have predatory animal exterminator care insurance, this BARIATRIC COORDINATOR encouraged Siri to look into this coverage now, not to wait. P: DC expected back home w/resumption of HH services and active/able bodied spouse to assist Following closely for coordination of DCP JUDE Sheffield
[2020-07-17 16:17] VITALS: BP 114/67; PULSE 70; RESP 16; TEMP 36.3; O2SAT 100
[2020-07-17 20:31] VITALS: BP 143/75; PULSE 69; RESP 16; TEMP 36.9; O2SAT 97
[2020-07-17] MEDS: SERTRALINE 50 MG TABLET 12.5 MG PO (20:44)
[2020-07-17] MEDS: FINASTERIDE 5 MG TABLET PO (20:44)
[2020-07-17 23:35] VITALS: BP 143/82; PULSE 71; RESP 16; TEMP 36.3; O2SAT 97
[2020-07-18 06:00] VITALS: BP 144/76; PULSE 69; RESP 16; TEMP 36.7; O2SAT 98
[2020-07-18] MEDS: LEVOTHYROXINE 75 MCG TABLET PO (06:10)
[2020-07-18 08:30] VITALS: BP 136/84; PULSE 76; RESP 18; TEMP 36.6; O2SAT 97
[2020-07-18] MEDS: MAGNESIUM CHLORIDE 64 MG TABLET PO (08:52)
[2020-07-18] MEDS: ATORVASTATIN 20 MG TABLET PO (08:52)
[2020-07-18] MEDS: carvediloL 3.125 MG TABLET PO (08:52)
[2020-07-18] MEDS: AMIODARONE 100 MG TABLET PO (08:52)
[2020-07-18] MEDS: METFORMIN HCL 500 MG TABLET PO (08:52)
[2020-07-18] MEDS: ASPIRIN EC 81 MG TABLET PO (08:52)
--- NOTE | 2020-07-18 09:40 | P.DS_ITS ---
History of Present Illness History of Present Illness Chief complaint: Syncope, lightheaded Discharge Providers Provider Date of admission: 07/16/20 19:11 Discharge Date: 07/18/20 Primary care physician: Diane Howard MD Consults: 07/16/20 22:17 Consult to Discharge Planning Routine Comment: Consult to Occupational Therapy Evaluate & Treat Comment: Physician Instructions: Evaluate and treat Consult to Physical Therapy Evaluate & Treat Comment: Physician Instructions: Evaluate and Treat 07/17/20 09:00 Consult to Pastoral Services Routine Comment: pt would like a vist Discharge provider: Melquiades Velazquez MD Summary Hospital Course Discharge Diagnosis: Syncope possibly cardiogenic CVA remote history Hyperlipidemia Atrial fibrillation paroxysmal not on anticoagulation due to patient's left atrial occlusion Diabetes type 2 Hypothyroidism BPH number next coronary artery disease Acute kidney injury with resolution Hospital Course: Admitted to the hospital after witnessed loss of consciousness at home. He then began to feel dizzy lost conscious for approximately 5 minutes. He was breathing entire time but did not respond to verbal or other stimuli. 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 Patient was placed on telemetry monitoring during his hospital stay he had numbers of episodes of supraventricular tachycardia which was interrogated on his pacemaker. Initially there were some concerns that this was V-tach. But after interrogating his pacemaker in talking to the wrap and his chain link fence installer. They feel like this is a supraventricular tachycardia event. And can be followed up as an outpatient. The time of discharge he was eating ambulating and ready to go home. Exam Vital Signs (past 8 hours): - 07/18/20 06:00 07/18/20 08:30 Temperature 98.0 F 97.9 F Pulse Rate 69 76 Respiratory Rate 16 18 Blood Pressure 144/76 H 136/84 Pulse Oximetry 98 97 Oxygen Delivery Method Room Air Oxygen Flow Rate 0 Objective Labs Result Diagrams: 07/17/20 14:12 07/17/20 14:12 Labs: Laboratory Results - last 24 hr 07/17/20 07/17/20 07/17/20 10:25 14:12 14:12 WBC 5.7 RBC 3.95 L Hgb 13.0 L Hct 39.2 L MCV 99.4 MCH 32.9 MCHC 33.2 RDW 13.0 Plt Count 215 Neut % (Auto) 68.3 Lymph % (Auto) 21.6 L Crockett % (Auto) 8.6 Eos % (Auto) 0.7 L Baso % (Auto) 0.8 Neut # (Auto) 3900 Lymph # (Auto) 1200 Crockett # (Auto) 500 Eos # (Auto) 0 Baso # (Auto) 0 Sodium 134 L Potassium 4.6 Chloride 99 Carbon Dioxide 25 BUN 16 Creatinine 1.07 Estimated GFR > 60.0 BUN/Creatinine Ratio 15.0 Glucose 131 H Lactate 3.4 H Calcium 9.3 Phosphorus Magnesium 1.6 Total Bilirubin 0.7 AST 25 ALT 27 Alkaline Phosphatase 64 Troponin I < 0.012 Total Protein 6.6 Albumin 4.0 Globulin 2.6 Albumin/Globulin Ratio 1.5 07/17/20 14:12 WBC RBC Hgb Hct MCV MCH MCHC RDW Plt Count Neut % (Auto) Lymph % (Auto) Crockett % (Auto) Eos % (Auto) Baso % (Auto) Neut # (Auto) Lymph # (Auto) Crockett # (Auto) Eos # (Auto) Baso # (Auto) Sodium Potassium Chloride Carbon Dioxide BUN Creatinine Estimated GFR BUN/Creatinine Ratio Glucose Lactate Calcium Phosphorus 3.4 Magnesium Total Bilirubin AST ALT Alkaline Phosphatase Troponin I Total Protein Albumin Globulin Albumin/Globulin Ratio Discharge Plan Discharge Plan Discharge Problem: Acute alteration in mental status Patient Disposition: Home Provider Discharge Comment: Patient needs to follow-up with Dr. Howard next week and Cardiology for his episodes of rapid ventricular heart rate Discharge orders & Medications Prescriptions: Continued nitroglycerin 0.4 mg tablet, sublingual 0.4 mg SL Q5-15M PRN (Reason: chest pain) Qty: 30 RF: 2 magnesium chloride 64 mg tablet,delayed release (DR/EC) 64 mg PO DAILY RF: 0 levothyroxine 75 mcg tablet 75 mcg PO DAILY RF: 0 metformin 1,000 mg tablet 500 mg PO BID RF: 0 finasteride 5 mg Tablet 5 mg PO BEDTIME RF: 0 sertraline [Zoloft] 50 mg Tablet 12.5 mg PO BEDTIME Qty: 30 RF: 2 atorvastatin 80 mg tablet 20 mg PO DAILY RF: 0 amiodarone 200 mg tablet 100 mg PO BID RF: 0 aspirin [Adult Low Dose Aspirin] 81 mg tablet,delayed release (DR/EC) 81 mg PO DAILY RF: 0 Follow up/Referrals: Diane Howard MD [Primary Care Provider] - Visit Report/Discharge Packet Visit Report Forms: Patient Portal/API, Stroke Signs & Symptoms Discharge Data Primary Care Provider: Diane Howard Attending Provider: Tabitha Pratt Admit Date/Time: 07/16/20 19:11 Quality VTE Deep Vein Thrombosis/Pulmonary Embolism Present on Admission: No
--- NOTE | 2020-07-18 10:46 | PC.NURSE ---
Assess- Patient is doing well this morning. He has not had any beats of V.fib, and heart rate is regular. Patient is getting up with 1 PA and ambulating with the walker to the bathroom. He is going to be discharged home today after lunch. His helps care for him at home, he denies pain or nausea.
--- NOTE | 2020-07-18 10:52 | CM.DPC ---
DCP Discharge Home with HH Per MD, pt is medically stable to d/c home today with spouse and Resume [facility] . Per RN, no concerns at this time and spouse will provide transport home after lunch. LUIS faxed [facility] pt's discharge summary and [facility] orders to review for discharge home today. Plan: Patient to d/c home via spouse POV today and Resume [facility] . JUDE Burdick
--- NOTE | 2020-07-18 13:15 | PT-IP ANOTE ---
Offered services to pt, but pt was about to d/c. Pt and state they feel safe to go home and have no further questions for therapy at this time and are happy w/ plan for HHPT.
== END 2020-07-18 13:30 | disposition home or self-care (01) ==
LOC: ED 18:57 → AC 19:12
PROVIDERS: Admitting Provider Student in an Organized Health Care Education/Training Program; Emergency Provider Emergency Medicine; PCP Family Medicine; Referring Provider Emergency Medicine; Visit Provider Student in an Organized Health Care Education/Training Program
DX: R55 Syncope and collapse (principal); R51.9 Headache, unspecified; Z95.0 Presence of cardiac pacemaker; E86.0 Dehydration; Z86.73 Personal history of transient ischemic attack (TIA), and cerebral infarction without residual deficits; E78.5 Hyperlipidemia, unspecified; I48.0 Paroxysmal atrial fibrillation; E11.9 Type 2 diabetes mellitus without complications; Z79.84 Long term (current) use of oral hypoglycemic drugs; E03.9 Hypothyroidism, unspecified; N40.1 Benign prostatic hyperplasia with lower urinary tract symptoms; R33.8 Other retention of urine; I25.10 Atherosclerotic heart disease of native coronary artery without angina pectoris; N28.9 Disorder of kidney and ureter, unspecified; F32.9 Major depressive disorder, single episode, unspecified; F41.9 Anxiety disorder, unspecified; Z11.59 Encounter for screening for other viral diseases
CPT/HCPCS: 36415; 70450; 70496; 70498; 71045; 80048; 80053; 81001; 82550; 82962; 83605; 83735; 83880; 84100; 84145; 84484; 85025; 85379; 85610; 85730; 87040; 87635; 93005; 93010; 93306; 96360; 96361; 97129; 97161; 97165; 97535; 99217; 99285; G0378; Q9967

== ENCOUNTER 2020-09-23 12:43 | Emergency (ER) | payer MEDICARE, OTHER, SELFPAY ==
[2020-07-16 20:16] VITALS: BMI 26.2
[2020-09-23] VITALS (15 sets, daily range): BP systolic 111–145; BP diastolic 63–74; PULSE 68–98; RESP 17–26; TEMP 36.5; O2SAT 95–99
--- NOTE | 2020-09-23 13:04 | DI.RAD.S_ITS ---
PROCEDURE: XR CHEST 1V INDICATIONS: chest pain TECHNIQUE: One view of the chest was acquired. COMPARISON: [facility], CR, XR CHEST 1V, 07/16/2020, 16:22. FINDINGS: Surgical changes and devices: Anterior fusion hardware in lower cervical spine is again seen. Left chest wall pacemaker position is unchanged. Lungs and pleura: Lungs are clear. No pleural effusions or pneumothorax. Mediastinum: Mediastinal contours appear normal. Heart size is enlarged. Bones and chest wall: No suspicious bony lesions. Overlying soft tissues appear unremarkable. IMPRESSION: No acute cardiopulmonary pathology. Dictated by: Randall Lora M.D. on 09/23/2020 at 14:13 Approved by: Randall Lora M.D. on 09/23/2020 at 14:14
[2020-09-23 13:11] LABS: Add Manual Diff / Slide Review NO; Basophils Absolute Auto 0 /uL (0-100); Basophils Percent Auto 0.6 % (0-2); Eosinophils Absolute Auto 0 /uL (0-450); Eosinophils Percent Auto 0.3 % (2-4); Hematocrit 39.3 % (41-53); Hemoglobin 13.5 g/dL (13.5-17.5); Lymphocytes Absolute Auto 1400 /uL (1100-4500); Lymphocytes Percent Auto 16.1 % (25-40); Mean Corpuscular HGB Conc 34.4 % (30-36); Mean Corpuscular Hemoglobin 33.5 PG (26-34); Mean Corpuscular Volume 97.3 fL (80-100); Monocytes Absolute Auto 800 /uL (0-900); Monocytes Percent Auto 9.4 % (3-14); Neutrophils Absolute Auto 6300 /uL (1500-7000); Neutrophils Percent Auto 73.6 % (50-75); Platelet Count 251 X10^3/uL (150-400); Red Blood Cell Count 4.04 X10^6/uL (4.5-5.9); Red Cell Distribution Width 13.6 % (11.6-14.8); White Blood Cell Count 8.6 X10^3/uL (4.5-11.0)
[2020-09-23 13:14] LABS: INR 1.1 (0.9-1.3); Prothrombin Time 12.7 SECONDS (10.1-12.7)
[2020-09-23 13:17] LABS: PTT Partial Thromboplastin Tim 32 SECONDS (26.4-36.2)
[2020-09-23 13:21] LABS: Albumin 4.2 g/dL (3.5-5.0); Albumin Globulin Ratio 1.5 (1.0-2.8); Alkaline Phosphatase 79 U/L (38-126); Aspartate Aminotransferase 32 IU/L (17-59); BUN Creatinine Ratio 15.2 (6-22); Bilirubin Total 0.7 mg/dL (0.2-1.3); Blood Urea Nitrogen 17 mg/dL (9-20); Calcium 9.5 mg/dL (8.4-10.2); Carbon Dioxide 19 mmol/L (22-32); Chloride 97 mmol/L (98-107); Creatine Kinase 108 U/L (55-170); Estimated Glomerular Filt Rate > 60.0 mL/min (>60); Globulin 2.8 g/dL (1.7-4.1); Glucose 160 mg/dL (80-110); Lipase 79 U/L (23-300); Magnesium 1.1 mg/dL (1.6-2.3); Potassium 4.9 mmol/L (3.4-5.1); Sodium 132 mmol/L (137-145)
[2020-09-23 13:30] LABS: NT-proBNP (BNP-Adult 18+) 6380 pg/mL (<450)
[2020-09-23 13:36] LABS: CKMB % Relative Index 2.7 % (1.5-5.0); Creatine Kinase MB 2.88 ng/mL (<2.37)
--- NOTE | 2020-09-23 13:37 | ED_ITS ---
HPI - Arrhythmia/Palpitations <Luna SunMOLLY - Last Filed: 09/23/20 16:56> General Chief Complaint: Arrhythmia/Palpitations Stated Complaint: vomiting/confusion/rapid heartbeat Time Seen by Provider: 09/23/20 13:26 Source: patient and family Mode of arrival: Wheelchair Limitations: no limitations History of Present Illness HPI narrative: 85yo male with a pacemaker for the past 7 years for sick sinus syndrome, DM, history of CVA, hypertension, and GERD with occasional vomiting, presents to the emergency department for ?dry heaves ?. He states he gets occasional dry heaves from acid reflux however, last night he developed a dry heaves and they have been more prolonged and severe in the have the past. Patient originally told RN that he was developing episodes of rapid heart rate with nausea and diaphoresis. Patient states when he was in the hospital approximately 2 years ago for his CVA he was told that he had a rapid heartbeat. He does report intermittent epigastric ?soreness? and states this worsens when he vomits. He denies any chest pain, shortness of breath at this time, dizziness, palpitations at this time, nausea, diarrhea, or any other concerns. Related Data Home Medications Medication Instructions Recorded Confirmed levothyroxine 75 mcg PO QAM 08/27/18 09/23/20 metformin 500 mg PO BID 08/27/18 09/23/20 amiodarone 200 mg tablet 100 mg PO BID tab 12/24/18 09/23/20 aspirin 81 mg tablet,delayed 81 mg PO QAM 12/24/18 09/23/20 release finasteride 5 mg PO BEDTIME 07/06/20 09/23/20 atorvastatin 20 mg PO BEDTIME 09/23/20 09/23/20 duloxetine 30 mg PO BEDTIME 09/23/20 09/23/20 esomeprazole magnesium 40 mg PO BID 09/23/20 09/23/20 ondansetron HCl 4 mg PO TID PRN 09/23/20 09/23/20 Previous Rx's Medication Instructions Recorded nitroglycerin 0.4 mg SL Q5-15M PRN #30 tab 06/29/18 Allergies Allergy/AdvReac Type Severity Reaction Status Date / Time Ckxujfv-Scr-Axp Reductase Allergy Intermediate MUSCLE PAIN Verified 09/23/20 13:04 Inhibitor [WMECURE-DNT-OUZ REDUCTASE INHIBITOR] piroxicam [PIROXICAM] Allergy Mild NAUSEA, Verified 09/23/20 13:04 VOMITING dabigatran etexilate AdvReac Hematuria Verified 09/23/20 13:04 Review of Systems <MOLLY Perez - Last Filed: 09/23/20 16:56> Review of Systems Narrative: REVIEW OF SYSTEMS: GENERAL: Denies fever. HENT: No head trauma. CARDIOVASCULAR: No chest pain. RESPIRATORY: No cough. GASTROINTESTINAL: Complains of vomiting, see HPI GENITOURINARY: No urinary changes MUSCULOSKELETAL: No pain, weakness, or trauma. INTEGUMENTARY: No rash. NEURO: No numbness or tingling. PSYCH: No behavior or mood changes. 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 RBBB Renal insufficiency Sick sinus syndrome Sleep apnea (~2012) Spinal stenosis in cervical region Spinal stenosis of lumbar region TIA (transient ischemic attack) Urinary retention Surgical History H/O laminectomy H/O shoulder surgery H/O thumb surgery History of appendectomy History of bladder surgery History of cardiac cath (~2012) History of cholecystectomy (~2012) History of cystoscopy History of lumbar fusion History of tonsillectomy History of vasectomy Status post right foot surgery Social History marital status: details: to Siri, lives in [place] household members: spouse lives independently: Yes caregiver/support person: No housing: house Smoking Status: Never smoker alcohol intake: current substance use type: does not use Smoking Status: Never smoker alcohol intake frequency: holidays/special occasions only Substance Use Type: does not use Exam <MOLLY Perez - Last Filed: 09/23/20 16:56> Initial Vital Signs Initial Vital Signs: Vital Signs Temperature 97.7 F 09/23/20 12:45 Pulse Rate 93 H 09/23/20 12:45 Respiratory Rate 24 09/23/20 12:45 Blood Pressure 124/74 09/23/20 12:45 Pulse Oximetry 99 09/23/20 12:45 PHYSICAL EXAMINATION: GENERAL: Awake and alert, answers questions promptly, however, poor historian. Elderly appearing. HENT: Normocephalic, atraumatic. EYES: Conjunctiva pink, sclera white, no periorbital swelling. CARDIOVASCULAR: S1 and S2 sounds normal. No murmurs. slightly tachycardic RESPIRATORY: Normal respiratory rate, trachea midline, airway patent. No stridor, nasal flaring or accessory muscle use. Lungs are clear in all hall without wheeze, rhonchi, or crackles. No cough observed GASTROINTESTINAL: Bowel sounds normoactive. Abdomen is soft, mild epigastric tenderness. No organomegaly, no palpable masses. SKIN: Warm, dry, soft, appropriate color for ethnicity. No lesions, rashes, or wounds to visualized areas. NEURO: Alert and Oriented X 3. Good coordination. PSYCH: Appropriate affect and mood. <Arlette Jenkins DO - Last Filed: 09/24/20 00:27> Initial Vital Signs Initial Vital Signs: Vital Signs Temperature 97.7 F 09/23/20 12:45 Pulse Rate 93 H 09/23/20 12:45 Respiratory Rate 24 09/23/20 12:45 Blood Pressure 124/74 09/23/20 12:45 Pulse Oximetry 99 09/23/20 12:45 <Aster Bartlett MD - Last Filed: 09/24/20 07:36> Initial Vital Signs Initial Vital Signs: Vital Signs Temperature 97.7 F 09/23/20 12:45 Pulse Rate 93 H 09/23/20 12:45 Respiratory Rate 24 09/23/20 12:45 Blood Pressure 124/74 09/23/20 12:45 Pulse Oximetry 99 09/23/20 12:45 Course <MOLLY Perez - Last Filed: 09/23/20 16:56> Course Course Narrative: 1430: I spoke with [facility] technology applications consultant, Dr. Schultz. Discussed initial EKG with concerns for wide QRS complex, increased rate, pacem malcolm interrogation, and elevated troponin. He suggested starting heparin at this time and transferring to [facility], he recommends contact the hospitalist. 1440: I spoke with the patient is family, denies any history of bleeding in the brain. Consented to heparin and transfer. 1503: I spoke with [facility] with pacemaker results, reports patient has had intermittent runs of a flutter, last approximately 20, 2:1 ratio. Patient's last transmission is that he is in his normal paced rhythm. 1653: I spoke with Dr. Heller, hospitalist at [facility]. Discussed patient's history, test, test results, consult with technology applications consultant and plan of care. She accepts for admission. Awaiting bed to contact ALS transfer. Orders Ordered: Discontinued Medications Aspirin (Aspirin 81 Mg Chew Tab) 324 mg PO NOW ONE Stop: 09/23/20 14:24 Last Admin: 09/23/20 14:39 Dose: 324 mg Documented by: HIPOLITO Heparin Sodium (Porcine) (Heparin 5,000 Unit/Ml Vial) 4,000 unit IV NOW ONE Stop: 09/23/20 14:50 Last Admin: 09/23/20 15:00 Dose: 4,000 unit Documented by: HIPOLITO Heparin Sodium (Porcine) (Heparin 5,000 Unit/Ml Vial) 4,000 unit IV NOW ONE Stop: 09/23/20 15:16 Last Admin: 09/23/20 15:04 Dose: 4,000 unit Documented by: HIPOLITO Magnesium Sulfate (Magnesium Sulfate) 2 gm in 50 mls @ 25 mls/hr IV NOW ONE Stop: 09/23/20 16:16 Last Infusion: 09/23/20 16:44 Dose: 0 mls/hr Documented by: HIPOLITO Cosigned by: NITZA Admin: 09/23/20 14:39 Dose: 25 mls/hr Documented by: HIPOLITO Cosigned by: BRONWYN Heparin Sodium/Dextrose (Heparin Drip) 25,000 unit in 500 mls @ 18.504 mls/hr IV CONT ALLA; Protocol Last Titration: 09/23/20 18:20 Dose: 0 units/kg/hr, 0 mls/hr Documented by: Admin: 09/23/20 15:04 Dose: 12 units/kg/hr, 18.504 mls/hr Documented by: HIPOLITO Consultations Consultation #1: Patient staffed with Dr. Bartlett, discussed EKG, test, test results, and pacemaker interrogation report. Vital Signs Vital signs: Vital Signs - 8 hr 09/23/20 16:30 09/23/20 17:00 09/23/20 17:30 Pulse Rate 69 69 69 Respiratory Rate 22 17 20 Blood Pressure 121/69 126/68 145/72 H Pulse Oximetry 95 97 96 09/23/20 18:00 Pulse Rate 69 Respiratory Rate 22 Blood Pressure 126/72 Pulse Oximetry <Arlette Jenkins DO - Last Filed: 09/24/20 00:27> Orders Ordered: Discontinued Medications Aspirin (Aspirin 81 Mg Chew Tab) 324 mg PO NOW ONE Stop: 09/23/20 14:24 Last Admin: 09/23/20 14:39 Dose: 324 mg Documented by: HIPOLITO Heparin Sodium (Porcine) (Heparin 5,000 Unit/Ml Vial) 4,000 unit IV NOW ONE Stop: 09/23/20 14:50 Last Admin: 09/23/20 15:00 Dose: 4,000 unit Documented by: HIPOLITO Heparin Sodium (Porcine) (Heparin 5,000 Unit/Ml Vial) 4,000 unit IV NOW ONE Stop: 09/23/20 15:16 Last Admin: 09/23/20 15:04 Dose: 4,000 unit Documented by: HIPOLITO Magnesium Sulfate (Magnesium Sulfate) 2 gm in 50 mls @ 25 mls/hr IV NOW ONE Stop: 09/23/20 16:16 Last Infusion: 09/23/20 16:44 Dose: 0 mls/hr Documented by: HIPOLITO Cosigned by: NITZA Admin: 09/23/20 14:39 Dose: 25 mls/hr Documented by: HIPOLITO Cosigned by: BRONWYN Heparin Sodium/Dextrose (Heparin Drip) 25,000 unit in 500 mls @ 18.504 mls/hr IV CONT ALLA; Protocol Last Titration: 09/23/20 18:20 Dose: 0 units/kg/hr, 0 mls/hr Documented by: Admin: 09/23/20 15:04 Dose: 12 units/kg/hr, 18.504 mls/hr Documented by: HIPOLITO Vital Signs Vital signs: Vital Signs - 8 hr 09/23/20 16:30 09/23/20 17:00 09/23/20 17:30 Pulse Rate 69 69 69 Respiratory Rate 22 17 20 Blood Pressure 121/69 126/68 145/72 H Pulse Oximetry 95 97 96 09/23/20 18:00 Pulse Rate 69 Respiratory Rate 22 Blood Pressure 126/72 Pulse Oximetry <Aster Bartlett MD - Last Filed: 09/24/20 07:36> Orders Ordered: Discontinued Medications Aspirin (Aspirin 81 Mg Chew Tab) 324 mg PO NOW ONE Stop: 09/23/20 14:24 Last Admin: 09/23/20 14:39 Dose: 324 mg Documented by: HIPOLITO Heparin Sodium (Porcine) (Heparin 5,000 Unit/Ml Vial) 4,000 unit IV NOW ONE Stop: 09/23/20 14:50 Last Admin: 09/23/20 15:00 Dose: 4,000 unit Documented by: HIPOLITO Heparin Sodium (Porcine) (Heparin 5,000 Unit/Ml Vial) 4,000 unit IV NOW ONE Stop: 09/23/20 15:16 Last Admin: 09/23/20 15:04 Dose: 4,000 unit Documented by: HIPOLITO Magnesium Sulfate (Magnesium Sulfate) 2 gm in 50 mls @ 25 mls/hr IV NOW ONE Stop: 09/23/20 16:16 Last Infusion: 09/23/20 16:44 Dose: 0 mls/hr Documented by: HIPOLITO Cosigned by: NITZA Admin: 09/23/20 14:39 Dose: 25 mls/hr Documented by: HIPOLITO Cosigned by: BRONWYN Heparin Sodium/Dextrose (Heparin Drip) 25,000 unit in 500 mls @ 18.504 mls/hr IV CONT ALLA; Protocol Last Titration: 09/23/20 18:20 Dose: 0 units/kg/hr, 0 mls/hr Documented by: Admin: 09/23/20 15:04 Dose: 12 units/kg/hr, 18.504 mls/hr Documented by: HIPOLITO Vital Signs Vital signs: Vital Signs - 8 hr 09/23/20 16:30 09/23/20 17:00 09/23/20 17:30 Pulse Rate 69 69 69 Respiratory Rate 22 17 20 Blood Pressure 121/69 126/68 145/72 H Pulse Oximetry 95 97 96 09/23/20 18:00 Pulse Rate 69 Respiratory Rate 22 Blood Pressure 126/72 Pulse Oximetry MDM - Arrhythmia/Palpitations <Luna SunMOLLY - Last Filed: 09/23/20 16:56> Medical Records Attestation: I reviewed the patient's medical records. Lab Data Attestation: I reviewed the patient's lab results. Result diagrams: 09/23/20 13:00 09/23/20 13:00 Labs: Lab Results 09/23/20 09/23/20 09/23/20 Range/Units 13:00 13:00 13:00 WBC 8.6 (4.5-11.0) X10^3/uL RBC 4.04 L (4.5-5.9) X10^6/uL Hgb 13.5 (13.5-17.5) g/dL Hct 39.3 L (41-53) % MCV 97.3 (80-100) fL MCH 33.5 (26-34) PG MCHC 34.4 (30-36) % RDW 13.6 (11.6-14.8) % Plt Count 251 (150-400) X10^3/uL Neut % (Auto) 73.6 (50-75) % Lymph % (Auto) 16.1 L (25-40) % Todd % (Auto) 9.4 (3-14) % Eos % (Auto) 0.3 L (2-4) % Baso % (Auto) 0.6 (0-2) % Neut # (Auto) 6300 (1768-4962) /uL Lymph # (Auto) 1400 (3123-0886) /uL Todd # (Auto) 800 (0-900) /uL Eos # (Auto) 0 (0-450) /uL Baso # (Auto) 0 (0-100) /uL PT 12.7 (10.1-12.7) SECONDS INR 1.1 (0.9-1.3) APTT 32 D (26.4-36.2) SECONDS Sodium 132 L (137-145) mmol/L Potassium 4.9 (3.4-5.1) mmol/L Chloride 97 L (98-107) mmol/L Carbon Dioxide 19 L (22-32) mmol/L BUN 17 (9-20) mg/dL Creatinine 1.12 (0.66-1.25) mg/dL Estimated GFR > 60.0 (>60) mL/min BUN/Creatinine Ratio 15.2 (6-22) Glucose 160 H (80-110) mg/dL Calcium 9.5 (8.4-10.2) mg/dL Magnesium 1.1 L (1.6-2.3) mg/dL Total Bilirubin 0.7 (0.2-1.3) mg/dL AST 32 (17-59) IU/L ALT 27 (<50) IU/L Alkaline Phosphatase 79 (38-126) U/L Total Creatine Kinase 108 (55-170) U/L CK-MB (CK-2) 2.88 H (<2.37) ng/mL CK-MB (CK-2) Rel Index 2.7 (1.5-5.0) % Troponin I 0.802 H* (0.01-0.034) ng/mL NT-Pro-B Natriuret Pep (<450) pg/mL Total Protein 7.0 (6.3-8.2) g/dL Albumin 4.2 (3.5-5.0) g/dL Globulin 2.8 (1.7-4.1) g/dL Albumin/Globulin Ratio 1.5 (1.0-2.8) Lipase 79 (23-300) U/L TSH (0.47-4.68) uIU/mL SARS-CoV-2 (PCR) (Negative) 09/23/20 09/23/20 09/23/20 Range/Units 13:00 13:00 13:20 WBC (4.5-11.0) X10^3/uL RBC (4.5-5.9) X10^6/uL Hgb (13.5-17.5) g/dL Hct (41-53) % MCV (80-100) fL MCH (26-34) PG MCHC (30-36) % RDW (11.6-14.8) % Plt Count (150-400) X10^3/uL Neut % (Auto) (50-75) % Lymph % (Auto) (25-40) % Todd % (Auto) (3-14) % Eos % (Auto) (2-4) % Baso % (Auto) (0-2) % Neut # (Auto) (4366-4726) /uL Lymph # (Auto) (6500-3601) /uL Todd # (Auto) (0-900) /uL Eos # (Auto) (0-450) /uL Baso # (Auto) (0-100) /uL PT (10.1-12.7) SECONDS INR (0.9-1.3) APTT (26.4-36.2) SECONDS Sodium (137-145) mmol/L Potassium (3.4-5.1) mmol/L Chloride (98-107) mmol/L Carbon Dioxide (22-32) mmol/L BUN (9-20) mg/dL Creatinine (0.66-1.25) mg/dL Estimated GFR (>60) mL/min BUN/Creatinine Ratio (6-22) Glucose (80-110) mg/dL Calcium (8.4-10.2) mg/dL Magnesium (1.6-2.3) mg/dL Total Bilirubin (0.2-1.3) mg/dL AST (17-59) IU/L ALT (<50) IU/L Alkaline Phosphatase (38-126) U/L Total Creatine Kinase (55-170) U/L CK-MB (CK-2) (<2.37) ng/mL CK-MB (CK-2) Rel Index (1.5-5.0) % Troponin I (0.01-0.034) ng/mL NT-Pro-B Natriuret Pep 6380 H (<450) pg/mL Total Protein (6.3-8.2) g/dL Albumin (3.5-5.0) g/dL Globulin (1.7-4.1) g/dL Albumin/Globulin Ratio (1.0-2.8) Lipase (23-300) U/L TSH 3.76 (0.47-4.68) uIU/mL SARS-CoV-2 (PCR) Negative (Negative) Imaging Data Chest x-ray: Radiologist's Impresson: [address] [id number] ReportSigned Patient: Sotero Kasper WMR#: [id number]: 5Acct:[id number]/Sex: 85 / MDate of Service: 09/23/20Loc: EDAccession Number: [id number] Procedure: XR chest 1V Ordering Provider: Aster Bartlett MD PROCEDURE: XR CHEST 1V INDICATIONS: chest pain TECHNIQUE: One view of the chest was acquired. COMPARISON: [facility], , XR CHEST 1V, 07/16/2020, 16:22. FINDINGS: Surgical changes and devices: Anterior fusion hardware in lower cervical spine is again seen. Left chest wall pacemaker position is unchanged. Lungs and pleura: Lungs are clear. No pleural effusions or pneumothorax. Mediastinum: Mediastinal contours appear normal. Heart size is enlarged. Bones and chest wall: No suspicious bony lesions. Overlying soft tissues appear unremarkable. IMPRESSION: No acute cardiopulmonary pathology. Dictated by: Randall Lora M.D. on 09/23/2020 at 14:13 Approved by: Randall Lora M.D. on 09/23/2020 at 14:14 ECG Data Interpretation: 1253: Wide QRS complex, rate 96, RI interval 178, QTC 493. Rhythm appears paced but extra beats on top of pacing. EKG also viewed by Dr. Bartlett. 1438: Paced rhythm, rate 69, RI interval 296, QTC [address] elevation or ST depression. EKG also viewed by Dr. Bartlett per protocol. [facility] Narrative Medical decision making narrative: 85yo male with a pacemaker presents emergency department for dry heaving in fast heart rate. It appears patient has had runs of a flutter as seen on interrogation of his pacemaker. Additionally, patient may have ACS given positive troponin and elevated BNP. Patient denies any chest pain at this time. He was given 325mg of aspirin. After extensive discussion with Dr. Bartlett, I contacted Dr. Schultz, at [facility] cardiology, discussed EKGs, pacemaker interrogation, symptoms, and laboratory results. He recommended transfer and initiation of heparin. After discussion with patient about risks and benefits, he confirmed that he has not had any bleeding in his brain. at bedside also agrees with assessment. Patient and consent to transfer and initiation of heparin. Patient tolerating well. Dr. Bartlett aware the patient remains in the department awaiting transfer, hemodynamically stable at this time without concerns of worsening A-flutter or further arrhythmias. <Arlette Jenkins, DO - Last Filed: 09/24/20 00:27> Lab Data Labs: Lab Results 09/23/20 09/23/20 09/23/20 Range/Units 13:00 13:00 13:00 WBC 8.6 (4.5-11.0) X10^3/uL RBC 4.04 L (4.5-5.9) X10^6/uL Hgb 13.5 (13.5-17.5) g/dL Hct 39.3 L (41-53) % MCV 97.3 (80-100) fL MCH 33.5 (26-34) PG MCHC 34.4 (30-36) % RDW 13.6 (11.6-14.8) % Plt Count 251 (150-400) X10^3/uL Neut % (Auto) 73.6 (50-75) % Lymph % (Auto) 16.1 L (25-40) % Todd % (Auto) 9.4 (3-14) % Eos % (Auto) 0.3 L (2-4) % Baso % (Auto) 0.6 (0-2) % Neut # (Auto) 6300 (4962-2053) /uL Lymph # (Auto) 1400 (7400-2226) /uL Todd # (Auto) 800 (0-900) /uL Eos # (Auto) 0 (0-450) /uL Baso # (Auto) 0 (0-100) /uL PT 12.7 (10.1-12.7) SECONDS INR 1.1 (0.9-1.3) APTT 32 D (26.4-36.2) SECONDS Sodium 132 L (137-145) mmol/L Potassium 4.9 (3.4-5.1) mmol/L Chloride 97 L (98-107) mmol/L Carbon Dioxide 19 L (22-32) mmol/L BUN 17 (9-20) mg/dL Creatinine 1.12 (0.66-1.25) mg/dL Estimated GFR > 60.0 (>60) mL/min BUN/Creatinine Ratio 15.2 (6-22) Glucose 160 H (80-110) mg/dL Calcium 9.5 (8.4-10.2) mg/dL Magnesium 1.1 L (1.6-2.3) mg/dL Total Bilirubin 0.7 (0.2-1.3) mg/dL AST 32 (17-59) IU/L ALT 27 (<50) IU/L Alkaline Phosphatase 79 (38-126) U/L Total Creatine Kinase 108 (55-170) U/L CK-MB (CK-2) 2.88 H (<2.37) ng/mL CK-MB (CK-2) Rel Index 2.7 (1.5-5.0) % Troponin I 0.802 H* (0.01-0.034) ng/mL NT-Pro-B Natriuret Pep (<450) pg/mL Total Protein 7.0 (6.3-8.2) g/dL Albumin 4.2 (3.5-5.0) g/dL Globulin 2.8 (1.7-4.1) g/dL Albumin/Globulin Ratio 1.5 (1.0-2.8) Lipase 79 (23-300) U/L TSH (0.47-4.68) uIU/mL SARS-CoV-2 (PCR) (Negative) 09/23/20 09/23/20 09/23/20 Range/Units 13:00 13:00 13:20 WBC (4.5-11.0) X10^3/uL RBC (4.5-5.9) X10^6/uL Hgb (13.5-17.5) g/dL Hct (41-53) % MCV (80-100) fL MCH (26-34) PG MCHC (30-36) % RDW (11.6-14.8) % Plt Count (150-400) X10^3/uL Neut % (Auto) (50-75) % Lymph % (Auto) (25-40) % Todd % (Auto) (3-14) % Eos % (Auto) (2-4) % Baso % (Auto) (0-2) % Neut # (Auto) (8770-0405) /uL Lymph # (Auto) (0055-1110) /uL Todd # (Auto) (0-900) /uL Eos # (Auto) (0-450) /uL Baso # (Auto) (0-100) /uL PT (10.1-12.7) SECONDS INR (0.9-1.3) APTT (26.4-36.2) SECONDS Sodium (137-145) mmol/L Potassium (3.4-5.1) mmol/L Chloride (98-107) mmol/L Carbon Dioxide (22-32) mmol/L BUN (9-20) mg/dL Creatinine (0.66-1.25) mg/dL Estimated GFR (>60) mL/min BUN/Creatinine Ratio (6-22) Glucose (80-110) mg/dL Calcium (8.4-10.2) mg/dL Magnesium (1.6-2.3) mg/dL Total Bilirubin (0.2-1.3) mg/dL AST (17-59) IU/L ALT (<50) IU/L Alkaline Phosphatase (38-126) U/L Total Creatine Kinase (55-170) U/L CK-MB (CK-2) (<2.37) ng/mL CK-MB (CK-2) Rel Index (1.5-5.0) % Troponin I (0.01-0.034) ng/mL NT-Pro-B Natriuret Pep 6380 H (<450) pg/mL Total Protein (6.3-8.2) g/dL Albumin (3.5-5.0) g/dL Globulin (1.7-4.1) g/dL Albumin/Globulin Ratio (1.0-2.8) Lipase (23-300) U/L TSH 3.76 (0.47-4.68) uIU/mL SARS-CoV-2 (PCR) Negative (Negative) MDM Narrative Medical decision making narrative: I only added discharge diagnosis to get patient off tracker I had no interaction with patient or patient care <Aster Bartlett MD - Last Filed: 09/24/20 07:36> Lab Data Labs: Lab Results 09/23/20 09/23/20 09/23/20 Range/Units 13:00 13:00 13:00 WBC 8.6 (4.5-11.0) X10^3/uL RBC 4.04 L (4.5-5.9) X10^6/uL Hgb 13.5 (13.5-17.5) g/dL Hct 39.3 L (41-53) % MCV 97.3 (80-100) fL MCH 33.5 (26-34) PG MCHC 34.4 (30-36) % RDW 13.6 (11.6-14.8) % Plt Count 251 (150-400) X10^3/uL Neut % (Auto) 73.6 (50-75) % Lymph % (Auto) 16.1 L (25-40) % Todd % (Auto) 9.4 (3-14) % Eos % (Auto) 0.3 L (2-4) % Baso % (Auto) 0.6 (0-2) % Neut # (Auto) 6300 (6333-8673) /uL Lymph # (Auto) 1400 (1759-8057) /uL Todd # (Auto) 800 (0-900) /uL Eos # (Auto) 0 (0-450) /uL Baso # (Auto) 0 (0-100) /uL PT 12.7 (10.1-12.7) SECONDS INR 1.1 (0.9-1.3) APTT 32 D (26.4-36.2) SECONDS Sodium 132 L (137-145) mmol/L Potassium 4.9 (3.4-5.1) mmol/L Chloride 97 L (98-107) mmol/L Carbon Dioxide 19 L (22-32) mmol/L BUN 17 (9-20) mg/dL Creatinine 1.12 (0.66-1.25) mg/dL Estimated GFR > 60.0 (>60) mL/min BUN/Creatinine Ratio 15.2 (6-22) Glucose 160 H (80-110) mg/dL Calcium 9.5 (8.4-10.2) mg/dL Magnesium 1.1 L (1.6-2.3) mg/dL Total Bilirubin 0.7 (0.2-1.3) mg/dL AST 32 (17-59) IU/L ALT 27 (<50) IU/L Alkaline Phosphatase 79 (38-126) U/L Total Creatine Kinase 108 (55-170) U/L CK-MB (CK-2) 2.88 H (<2.37) ng/mL CK-MB (CK-2) Rel Index 2.7 (1.5-5.0) % Troponin I 0.802 H* (0.01-0.034) ng/mL NT-Pro-B Natriuret Pep (<450) pg/mL Total Protein 7.0 (6.3-8.2) g/dL Albumin 4.2 (3.5-5.0) g/dL Globulin 2.8 (1.7-4.1) g/dL Albumin/Globulin Ratio 1.5 (1.0-2.8) Lipase 79 (23-300) U/L TSH (0.47-4.68) uIU/mL SARS-CoV-2 (PCR) (Negative) 09/23/20 09/23/20 09/23/20 Range/Units 13:00 13:00 13:20 WBC (4.5-11.0) X10^3/uL RBC (4.5-5.9) X10^6/uL Hgb (13.5-17.5) g/dL Hct (41-53) % MCV (80-100) fL MCH (26-34) PG MCHC (30-36) % RDW (11.6-14.8) % Plt Count (150-400) X10^3/uL Neut % (Auto) (50-75) % Lymph % (Auto) (25-40) % Todd % (Auto) (3-14) % Eos % (Auto) (2-4) % Baso % (Auto) (0-2) % Neut # (Auto) (0829-3520) /uL Lymph # (Auto) (4885-5804) /uL Todd # (Auto) (0-900) /uL Eos # (Auto) (0-450) /uL Baso # (Auto) (0-100) /uL PT (10.1-12.7) SECONDS INR (0.9-1.3) APTT (26.4-36.2) SECONDS Sodium (137-145) mmol/L Potassium (3.4-5.1) mmol/L Chloride (98-107) mmol/L Carbon Dioxide (22-32) mmol/L BUN (9-20) mg/dL Creatinine (0.66-1.25) mg/dL Estimated GFR (>60) mL/min BUN/Creatinine Ratio (6-22) Glucose (80-110) mg/dL Calcium (8.4-10.2) mg/dL Magnesium (1.6-2.3) mg/dL Total Bilirubin (0.2-1.3) mg/dL AST (17-59) IU/L ALT (<50) IU/L Alkaline Phosphatase (38-126) U/L Total Creatine Kinase (55-170) U/L CK-MB (CK-2) (<2.37) ng/mL CK-MB (CK-2) Rel Index (1.5-5.0) % Troponin I (0.01-0.034) ng/mL NT-Pro-B Natriuret Pep 6380 H (<450) pg/mL Total Protein (6.3-8.2) g/dL Albumin (3.5-5.0) g/dL Globulin (1.7-4.1) g/dL Albumin/Globulin Ratio (1.0-2.8) Lipase (23-300) U/L TSH 3.76 (0.47-4.68) uIU/mL SARS-CoV-2 (PCR) Negative (Negative) Discharge Plan Departure Patient Disposition: [facility] Clinical Impression: Non-ST elevation (NSTEMI) myocardial infarction, Atrial fibrillation/flutter, CHF (congestive heart failure) Prescriptions: No Action nitroglycerin 0.4 mg tablet, sublingual 0.4 mg SL Q5-15M PRN (Reason: chest pain) Qty: 30 RF: 2 levothyroxine 75 mcg tablet 75 mcg PO QAM RF: 0 metformin 1,000 mg tablet 500 mg PO BID RF: 0 finasteride 5 mg Tablet 5 mg PO BEDTIME RF: 0 atorvastatin 20 mg tablet 20 mg PO BEDTIME RF: 0 duloxetine 30 mg capsule,delayed release(DR/EC) 30 mg PO BEDTIME RF: 0 ondansetron HCl 4 mg tablet 4 mg PO TID PRN (Reason: nausea) RF: 0 esomeprazole magnesium 40 mg capsule,delayed release(DR/EC) 40 mg PO BID RF: 0 amiodarone 200 mg tablet 100 mg PO BID RF: 0 aspirin [Adult Low Dose Aspirin] 81 mg tablet,delayed release (DR/EC) 81 mg PO QAM RF: 0 Referrals: Diane Howard MD [Primary Care Provider] - <Aster Bartlett MD - Last Filed: 09/24/20 07:36> Cosign ED Attending Cosignature Attestation: I was immediately available in the department for consultation throughout this patient's visit. I agree with documentation as above. Aster Bartlett MD
[2020-09-23 13:47] LABS: COVID19 -Nasal RAPID Negative (Negative)
[2020-09-23 13:52] LABS: TSH w/ Reflex to FT4 3.76 uIU/mL (0.47-4.68)
[2020-09-23 14:15] LABS: Troponin I 0.802 ng/mL (0.01-0.034)
[2020-09-23] MEDS: ASPIRIN 81 MG CHEW TAB 324 MG PO (14:39)
[2020-09-23] MEDS: MAGNESIUM SULFATE 2 GM/50 ML PIGGYBACK IV (14:39)
[2020-09-23 14:42] LABS: Alanine Aminotransferase 27 IU/L (<50); HEMOLYSIS 44 (0-50)
[2020-09-23] MEDS: HEPARIN 5,000 UNIT/ML VIAL 4000 UNIT IV ×2 (15:00→15:04)
[2020-09-23] MEDS: HEPARIN DRIP 25,000 UNIT/500 ML IV.SOLN 18.504 UNIT IV (15:04)
== END 2020-09-23 18:20 | disposition short-term general hospital (02) ==
PROVIDERS: Emergency Medicine; Emergency Provider Nurse Practitioner; PCP Family Medicine
DX: I21.4 Non-ST elevation (NSTEMI) myocardial infarction (principal); I49.5 Sick sinus syndrome; Z95.0 Presence of cardiac pacemaker; R11.2 Nausea with vomiting, unspecified; I48.92 Unspecified atrial flutter; I50.9 Heart failure, unspecified; I11.0 Hypertensive heart disease with heart failure; Z86.73 Personal history of transient ischemic attack (TIA), and cerebral infarction without residual deficits; Z20.822 Contact with and (suspected) exposure to COVID-19
CPT/HCPCS: 36415; 71045; 80053; 82550; 82553; 83690; 83735; 83880; 84443; 84484; 85025; 85610; 85730; 87635; 93005; 96365; 96366; 96367; 96368; 99283; 99285; C9803; J1644; J3475

== ENCOUNTER 2020-10-06 12:25 | Inpatient (IN) | payer MEDICARE, OTHER, SELFPAY ==
[2020-07-16 20:16] VITALS: BMI 26.2
[2020-10-06] VITALS (23 sets, daily range): BP systolic 90–138; BP diastolic 50–68; PULSE 69–70; RESP 8–25; TEMP 36.3–36.9; O2SAT 96–100; BMI 25.1
--- NOTE | 2020-10-06 12:35 | ED_ITS ---
HPI - General Adult General Chief complaint: Dizziness Stated complaint: Nausea and dizzy,stent 1 week ago Time Seen by Provider: 10/06/20 12:34 Source: patient, family () and EMS Mode of arrival: EMS Limitations: no limitations History of Present Illness HPI narrative: This is an 85-year-old male who comes to the emergency department with complaint of nausea as well as dizziness. Patient states that he was f eeling a little under the weather since Monday. He was feeling okay today and while he was seated suddenly felt very dizzy and nauseated. Patient states he felt very weak in both his lower extremities and his tried to system to the bed. Patient denies headaches, no vision changes, no lateral weakness. Patient denies any vertigo type symptoms such as room spinning. He describes his dizzin ess as feeling lightheaded or like he needs to pass out. He denies any chest pain or pressure. He denies any shortness of breath. He was nauseated. states he a short episode of diaphoresis. He has not had any issues with bowel movements. No urinary issues. Patient was here a week ago with somewhat similar symptoms he was found to have an NTEMI with afib/flutter and was transferred to [facility] with a NSTEMI had AFib, and subsequently transferred to [facility] in [place] for catheterization as they were not able to complete the catheterization at [facility]. Patient only medication change was isosorbide 30 mg was added once daily. He takes aspirin and Plavix daily. Patient does have a pacemaker/Watchmen. He has known coronary artery disease. He also takes medication for hypertension, dyslipidemia, hypothyroidism, diabetes and atrial fibrillation. Patient follows with his branch operations specialist Dr. Arteaga. Related Data Home Medications Medication Instructions Recorded Confirmed levothyroxine 75 mcg PO QAM 08/27/18 10/06/20 metformin 500 mg PO BID 08/27/18 10/06/20 amiodarone 200 mg tablet 100 mg PO BID tab 12/24/18 10/06/20 aspirin 81 mg tablet,delayed 81 mg PO QAM 12/24/18 10/06/20 release finasteride 5 mg PO BEDTIME 07/06/20 10/06/20 atorvastatin 20 mg PO BEDTIME 09/23/20 10/06/20 duloxetine 30 mg PO BEDTIME 09/23/20 10/06/20 esomeprazole magnesium 40 mg PO BID 09/23/20 10/06/20 ondansetron HCl 4 mg PO TID PRN 09/23/20 10/06/20 hydrocodone-acetaminophen 1 tab PO Q6H PRN 10/06/20 10/06/20 isosorbide dinitrate 30 mg PO PRN PRN 10/06/20 10/06/20 metoprolol tartrate 50 mg PO BID 10/06/20 10/06/20 Previous Rx's Medication Instructions Recorded nitroglycerin 0.4 mg SL Q5-15M PRN #30 tab 06/29/18 Allergies Allergy/AdvReac Type Severity Reaction Status Date / Time Ciyjqkd-Vmc-Hpq Reductase Allergy Intermediate MUSCLE PAIN Verified 10/06/20 13:03 Inhibitor [[id number]-[id number] REDUCTASE INHIBITOR] piroxicam [PIROXICAM] Allergy Mild NAUSEA, Verified 10/06/20 13:03 VOMITING dabigatran etexilate AdvReac Hematuria Verified 10/06/20 13:03 Review of Systems Review of Systems ROS Unobtainable: All systems reviewed & are unremarkable except as noted in HPI and below Patient History Medical History (Updated 10/06/20 @ 15:21 by Priya Magdaleno DO) Anxiety CAD (coronary artery disease) DDD (degenerative disc disease), cervical Depression Diabetes Dyslipidemia Dysuria Elevated serum homocysteine level History of angina History of CVA (cerebrovascular accident) History of dizziness History of esophageal reflux History of fatigue History of hematuria Impotence Lumbosacral radiculopathy at L5 Memory deficit Neuropathy of both feet Osteoarthritis Pacemaker (~2013) Paroxysmal A-fib 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 RBBB Renal insufficiency Sick sinus syndrome Sleep apnea (~2012) Spinal stenosis in cervical region Spinal stenosis of lumbar region TIA (transient ischemic attack) Urinary retention Surgical History H/O laminectomy H/O shoulder surgery H/O thumb surgery History of appendectomy History of bladder surgery History of cardiac cath (~2012) History of cholecystectomy (~2012) History of cystoscopy History of lumbar fusion History of tonsillectomy History of vasectomy Status post right foot surgery Social History marital status: details: aisha Horner, lives in [place] household members: spouse lives independently: Yes caregiver/support person: No housing: house Smoking Status: Never smoker alcohol intake: current substance use type: does not use Smoking Status: Never smoker alcohol intake frequency: holidays/special occasions only Substance Use Type: does not use Exam Narrative Exam Narrative: GEN: Pale elderly male, alert and oriented x 3, patient appears to be in mild distress. HEENT: Atraumatic, pupils are equal round reactive to light, extraocular movements are intact, nares are clear, TMs are clear with no fluid, there is no conjunctival pallor. No facial droop. HEART: Regular rate and rhythm without murmur, clicks, rubs. Pulses are equal in upper and lower extremities LUNGS:Lungs clear to auscultation, no wheezes, rales, crackles, chest moves symmetrically, no tachypnea accessory muscle use. ABD:bowel sounds normal, soft, non-tender, no guarding, rebound, rigidity, no masses noted, no hepatosplenomegaly :No CVA tenderness MSCL: Non-tender, no muscle atrophy, full range of motion. NEURO:CN 2-12 intact, sensation normal SKIN: No rash, erythema or other skin changes. Initial Vital Signs Initial Vital Signs: Vital Signs Pulse Rate 69 10/06/20 12:28 Respiratory Rate 11 L 10/06/20 12:28 Blood Pressure 107/58 L 10/06/20 12:28 Pulse Oximetry 97 10/06/20 12:28 Course Orders Ordered: ED Orders 10/06/20 12:33 COVID19 Stat 10/06/20 12:43 Complete Blood Count AUTO DIFF Stat Comprehensive Metabolic Panel Stat Lactate (Lactic Acid) Stat NT-proBNP (BNP-Adult 18+) Stat Procalcitonin Stat Prothrombin Time INR Stat Troponin I Stat 10/06/20 12:47 XR chest 1V Stat 10/06/20 13:12 Blood Culture Stat 10/06/20 14:45 Troponin & CK Cardiac Panel Stat 10/06/20 16:04 UA Complete [Urinalysis and Microscopic] Stat 10/06/20 18:29 Lactate (Lactic Acid) Stat Sodium Chloride (Normal Saline 0.9%) 1,000 mls @ 75 mls/hr IV CONT ALLA Discontinued Medications Sodium Chloride (Normal Saline 0.9%) 1,000 mls @ 150 mls/hr IV CONT ALLA Last Admin: 10/06/20 12:57 Dose: 150 mls/hr Documented by: SUSANNE Sodium Chloride (Normal Saline 0.9%) 1,000 mls @ 500 mls/hr IV BOLUS ONE Stop: 10/06/20 17:20 Consultations Consultation #1: Discussed with patient's branch operations specialist, Dr. Arteaga. We discussed interrogating patient [place] device which they can review in the office. We discussed today's labs, his lactic acidosis. Unclear if this is cardiac in nature. Time: 14:06 Consultation #2: Patient accepted by Dr. Howard. She does request a 3rd lactate. Asked that we decrease fluids to 75 cc/hour. We did review patient's history, labs, findings today extensively. She also requests orthostatics. She does accept for observation. Time: 18:30 Additional Consultation(s): Patient's device was interrogated. Report was called to myself and patient has been 70 beats per minute with no Jose Manuel episodes. No issues with devices been working properly. Patient's last tachycardia episode was September 24, 2019 during his last hospitalization. Vital Signs Vital signs: Vital Signs - 8 hr 10/06/20 12:28 10/06/20 12:30 10/06/20 12:38 Temperature 98.4 F Pulse Rate 69 69 69 Respiratory Rate 11 L 11 L 16 Blood Pressure 107/58 L 107/58 L Pulse Oximetry 97 97 97 10/06/20 13:00 10/06/20 13:30 10/06/20 13:57 Temperature Pulse Rate 69 69 69 Respiratory Rate 11 L 17 25 H Blood Pressure 96/54 L Pulse Oximetry 96 98 97 10/06/20 14:00 10/06/20 14:30 10/06/20 15:00 Temperature Pulse Rate 69 69 69 Respiratory Rate 17 16 Blood Pressure Pulse Oximetry 99 97 97 10/06/20 15:30 10/06/20 16:00 10/06/20 16:19 Temperature Pulse Rate 69 69 69 Respiratory Rate 12 18 17 Blood Pressure 99/55 L Pulse Oximetry 97 98 99 10/06/20 16:30 10/06/20 17:00 10/06/20 17:30 Temperature Pulse Rate 69 69 69 Respiratory Rate 17 21 8 L Blood Pressure 108/67 90/53 L 117/61 Pulse Oximetry 96 99 97 10/06/20 18:00 10/06/20 18:30 Temperature Pulse Rate 69 69 Respiratory Rate 16 25 H Blood Pressure 123/68 138/68 Pulse Oximetry 98 98 Medical Decision Making Lab Data Result diagrams: 10/06/20 12:43 10/06/20 12:43 Labs: Lab Results 10/06/20 10/06/20 10/06/20 Range/Units 12:33 12:43 12:43 WBC 5.3 (4.5-11.0) X10^3/uL RBC 3.40 L (4.5-5.9) X10^6/uL Hgb 11.3 L (13.5-17.5) g/dL Hct 33.3 L (41-53) % MCV 97.8 (80-100) fL MCH 33.2 (26-34) PG MCHC 34.0 (30-36) % RDW 13.7 (11.6-14.8) % Plt Count 265 (150-400) X10^3/uL Neut % (Auto) 67.9 (50-75) % Lymph % (Auto) 20.4 L (25-40) % Carter % (Auto) 9.9 (3-14) % Eos % (Auto) 0.9 L (2-4) % Baso % (Auto) 0.9 (0-2) % Neut # (Auto) 3600 (4154-6293) /uL Lymph # (Auto) 1100 (6833-3942) /uL Carter # (Auto) 500 (0-900) /uL Eos # (Auto) 0 (0-450) /uL Baso # (Auto) 0 (0-100) /uL PT 13.6 H (10.1-12.7) SECONDS INR 1.2 (0.9-1.3) Sodium (137-145) mmol/L Potassium (3.4-5.1) mmol/L Chloride (98-107) mmol/L Carbon Dioxide (22-32) mmol/L BUN (9-20) mg/dL Creatinine (0.66-1.25) mg/dL Estimated GFR (>60) mL/min BUN/Creatinine Ratio (6-22) Glucose (80-110) mg/dL Lactate (0.7-2.1) mmol/L Calcium (8.4-10.2) mg/dL Total Bilirubin (0.2-1.3) mg/dL AST (17-59) IU/L ALT (<50) IU/L Alkaline Phosphatase (38-126) U/L Total Creatine Kinase (55-170) U/L CK-MB (CK-2) CK-MB (CK-2) Rel Index Troponin I (0.01-0.034) ng/mL NT-Pro-B Natriuret Pep (<450) pg/mL Total Protein (6.3-8.2) g/dL Albumin (3.5-5.0) g/dL Globulin (1.7-4.1) g/dL Albumin/Globulin Ratio (1.0-2.8) Procalcitonin (<0.5) ng/mL Urine Color Urine Appearance Urine pH (4.5-8.0) Ur Specific [place] (1.000-1.035) Urine Protein (Negative) Urine Glucose (UA) (Negative) g/dL Urine Ketones (NEGATIVE) Urine Occult Blood (Negative) Urine Nitrate (Negative) Urine Bilirubin (NEGATIVE) Urine Urobilinogen (0.2) E.U./dL Ur Leukocyte Esterase (NEGATIVE) Urine RBC (0-5/HPF) Urine WBC (0-5/HPF) Ur Squamous Epith Cells (0-5/HPF) Urine Bacteria (None) Ur Culture Indicated? SARS-CoV-2 (PCR) Negative (Negative) 10/06/20 10/06/20 10/06/20 Range/Units 12:43 12:43 12:43 WBC (4.5-11.0) X10^3/uL RBC (4.5-5.9) X10^6/uL Hgb (13.5-17.5) g/dL Hct (41-53) % MCV (80-100) fL MCH (26-34) PG MCHC (30-36) % RDW (11.6-14.8) % Plt Count (150-400) X10^3/uL Neut % (Auto) (50-75) % Lymph % (Auto) (25-40) % Carter % (Auto) (3-14) % Eos % (Auto) (2-4) % Baso % (Auto) (0-2) % Neut # (Auto) (8423-7962) /uL Lymph # (Auto) (9752-7003) /uL Carter # (Auto) (0-900) /uL Eos # (Auto) (0-450) /uL Baso # (Auto) (0-100) /uL PT (10.1-12.7) SECONDS INR (0.9-1.3) Sodium 132 L (137-145) mmol/L Potassium 5.1 (3.4-5.1) mmol/L Chloride 97 L (98-107) mmol/L Carbon Dioxide 25 (22-32) mmol/L BUN 21 H (9-20) mg/dL Creatinine 1.21 (0.66-1.25) mg/dL Estimated GFR 57.0 L (>60) mL/min BUN/Creatinine Ratio 17.4 (6-22) Glucose 139 H (80-110) mg/dL Lactate 5.6 H* (0.7-2.1) mmol/L Calcium 9.1 (8.4-10.2) mg/dL Total Bilirubin 0.5 (0.2-1.3) mg/dL AST 30 (17-59) IU/L ALT 24 (<50) IU/L Alkaline Phosphatase 64 (38-126) U/L Total Creatine Kinase (55-170) U/L CK-MB (CK-2) CK-MB (CK-2) Rel Index Troponin I < 0.012 (0.01-0.034) ng/mL NT-Pro-B Natriuret Pep 2120 H (<450) pg/mL Total Protein 6.0 L (6.3-8.2) g/dL Albumin 3.6 (3.5-5.0) g/dL Globulin 2.4 (1.7-4.1) g/dL Albumin/Globulin Ratio 1.5 (1.0-2.8) Procalcitonin < 0.05 (<0.5) ng/mL Urine Color Urine Appearance Urine pH (4.5-8.0) Ur Specific [place] (1.000-1.035) Urine Protein (Negative) Urine Glucose (UA) (Negative) g/dL Urine Ketones (NEGATIVE) Urine Occult Blood (Negative) Urine Nitrate (Negative) Urine Bilirubin (NEGATIVE) Urine Urobilinogen (0.2) E.U./dL Ur Leukocyte Esterase (NEGATIVE) Urine RBC (0-5/HPF) Urine WBC (0-5/HPF) Ur Squamous Epith Cells (0-5/HPF) Urine Bacteria (None) Ur Culture Indicated? SARS-CoV-2 (PCR) (Negative) 10/06/20 10/06/20 10/06/20 Range/Units 14:45 14:45 16:04 WBC (4.5-11.0) X10^3/uL RBC (4.5-5.9) X10^6/uL Hgb (13.5-17.5) g/dL Hct (41-53) % MCV (80-100) fL MCH (26-34) PG MCHC (30-36) % RDW (11.6-14.8) % Plt Count (150-400) X10^3/uL Neut % (Auto) (50-75) % Lymph % (Auto) (25-40) % Carter % (Auto) (3-14) % Eos % (Auto) (2-4) % Baso % (Auto) (0-2) % Neut # (Auto) (8225-9801) /uL Lymph # (Auto) (5503-3506) /uL Carter # (Auto) (0-900) /uL Eos # (Auto) (0-450) /uL Baso # (Auto) (0-100) /uL PT (10.1-12.7) SECONDS INR (0.9-1.3) Sodium (137-145) mmol/L Potassium (3.4-5.1) mmol/L Chloride (98-107) mmol/L Carbon Dioxide (22-32) mmol/L BUN (9-20) mg/dL Creatinine (0.66-1.25) mg/dL Estimated GFR (>60) mL/min BUN/Creatinine Ratio (6-22) Glucose (80-110) mg/dL Lactate 4.7 H* (0.7-2.1) mmol/L Calcium (8.4-10.2) mg/dL Total Bilirubin (0.2-1.3) mg/dL AST (17-59) IU/L ALT (<50) IU/L Alkaline Phosphatase (38-126) U/L Total Creatine Kinase 33 L (55-170) U/L CK-MB (CK-2) TNP CK-MB (CK-2) Rel Index TNP Troponin I < 0.012 (0.01-0.034) ng/mL NT-Pro-B Natriuret Pep (<450) pg/mL Total Protein (6.3-8.2) g/dL Albumin (3.5-5.0) g/dL Globulin (1.7-4.1) g/dL Albumin/Globulin Ratio (1.0-2.8) Procalcitonin (<0.5) ng/mL Urine Color Yellow Urine Appearance Clear Urine pH 5.5 (4.5-8.0) Ur Specific [place] 1.020 (1.000-1.035) Urine Protein Negative (Negative) Urine Glucose (UA) Negative (Negative) g/dL Urine Ketones Trace H (NEGATIVE) Urine Occult Blood Negative (Negative) Urine Nitrate Negative (Negative) Urine Bilirubin Negative (NEGATIVE) Urine Urobilinogen 0.2 (0.2) E.U./dL Ur Leukocyte Esterase Negative (NEGATIVE) Urine RBC None seen (0-5/HPF) Urine WBC 0-1/hpf (0-5/HPF) Ur Squamous Epith Cells 0-1 /hpf (0-5/HPF) Urine Bacteria None seen (None) Ur Culture Indicated? Cult not indicated SARS-CoV-2 (PCR) (Negative) ECG Data Attestation: I personally reviewed and interpreted this ECG as follows: Prior ECG tracings: available for review Interpretation: Atrial paced rhythm with a rate of 70, DE of 326, QRS of 178 and QTC of 518. Patient has inverted T-waves in V1-V4. No elevation appreciated. Patient has prior EKG from 03/03/2020 which appears similar V1 through V3. This was the date his transfer to the other facility. Older EKGs have similar findings although the T-waves are not is deep in lateral leads. [facility] Narrative Medical decision making narrative: This is an 85-year-old male who comes to the emergency department with nausea and lightheadedness/near syncope. Patient had similar symptoms with nausea and dry heaves approximately week and was found to have an NSTEMI and had cardiac catheterization and cardiac stent placed. He describes today symptoms similar although he was not as lightheaded on his last visit. Blood pressures are soft upon arrival, patient did have tender started in the last week which could be contributing to this. EKG is paced and appears similar to September 23 when patient was transferred. Labs and imaging shows anemia with hemoglobin of 11, normal platelets and white count. Chemistry shows hyponatremia, renal function appears very much at baseline mild decrease. Patient's glucose is normal. Patient has a elevated lactate 5.6. Troponin is negative, BNP is 2100 improved from 6300 on the 23 of September. procalcitonin is negative. Patient is covid negative. Patient has continued to have some soft, blood pressures. Patient does have autonomic dysregulation. He is also on multiple medications can hypotension. He does not have a clear infectious source although blood cultures were obtained and are pending. His urinalysis does not show any clear signs of infection but urine culture was also performed. Patient is improved currently here in the department. His not have any clear cardiac cause, his device was interrogated he has not had any dysrhythmias since September 24 during his last hospitalization. His device is working properly. Average heart rates been in the 70s. Patient's lactate is elevated and it is unclear the exact source, down words but not rapidly. He has some mild electrolyte abnormalities. No new renal changes. Has a small drop in his hemoglobin. Troponins negative BNP is 2100 but significantly improved from 6000 on the 23 of September. Source and plan for observation. Discharge Plan Departure Patient Disposition: Admitted as Observation Clinical Impression: Dizziness, Acidosis, lactic Admit Date/Time: 10/06/20 18:37 Admit Provider: Diane Howard
--- NOTE | 2020-10-06 12:47 | DI.RAD.S_ITS ---
PROCEDURE: XR CHEST 1V INDICATIONS: nausea, presyncope, recent cardiac stent TECHNIQUE: One view of the chest was acquired. COMPARISON: [facility], CR, XR CHEST 1V, 09/23/2020, 13:48. FINDINGS: Surgical changes and devices: Anterior cervical discectomy and fusion hardware is again noted and partially imaged. Left -sided cardiac pacer device is in place. Lungs and pleura: Lungs are clear. No pleural effusions or pneumothorax. Mediastinum: Mediastinal contours appear normal. Heart size is normal. Bones and chest wall: No suspicious bony lesions. Overlying soft tissues appear unremarkable. IMPRESSION: Stable radiographic evaluation of the chest without acute cardiopulmonary abnormalities or focal airspace disease. Dictated by: Tj Braun M.D. on 10/06/2020 at 13:48 Approved by: Tj Braun M.D. on 10/06/2020 at 13:49
--- NOTE | 2020-10-06 12:53 | PC.NURSE ---
deawn twice by elza from lab
[2020-10-06] MEDS: SODIUM CHLORIDE 0.9% 1,000 ML 150 ML IV (12:57)
[2020-10-06 12:58] LABS: Add Manual Diff / Slide Review NO; Basophils Absolute Auto 0 /uL (0-100); Basophils Percent Auto 0.9 % (0-2); Eosinophils Absolute Auto 0 /uL (0-450); Eosinophils Percent Auto 0.9 % (2-4); Hematocrit 33.3 % (41-53); Hemoglobin 11.3 g/dL (13.5-17.5); Lymphocytes Absolute Auto 1100 /uL (1100-4500); Lymphocytes Percent Auto 20.4 % (25-40); Mean Corpuscular Hemoglobin 33.2 PG (26-34); Mean Corpuscular Volume 97.8 fL (80-100); Monocytes Absolute Auto 500 /uL (0-900); Monocytes Percent Auto 9.9 % (3-14); Neutrophils Absolute Auto 3600 /uL (1500-7000); Neutrophils Percent Auto 67.9 % (50-75); Platelet Count 265 X10^3/uL (150-400); Red Cell Distribution Width 13.7 % (11.6-14.8); White Blood Cell Count 5.3 X10^3/uL (4.5-11.0)
[2020-10-06 13:05] LABS: INR 1.2 (0.9-1.3); Prothrombin Time 13.6 SECONDS (10.1-12.7)
[2020-10-06 13:12] LABS: Alanine Aminotransferase 24 IU/L (<50); Albumin 3.6 g/dL (3.5-5.0); Albumin Globulin Ratio 1.5 (1.0-2.8); Alkaline Phosphatase 64 U/L (38-126); Aspartate Aminotransferase 30 IU/L (17-59); BUN Creatinine Ratio 17.4 (6-22); Bilirubin Total 0.5 mg/dL (0.2-1.3); Blood Urea Nitrogen 21 mg/dL (9-20); Calcium 9.1 mg/dL (8.4-10.2); Carbon Dioxide 25 mmol/L (22-32); Chloride 97 mmol/L (98-107); Globulin 2.4 g/dL (1.7-4.1); Glucose 139 mg/dL (80-110); HEMOLYSIS 17 (0-50); Potassium 5.1 mmol/L (3.4-5.1); Sodium 132 mmol/L (137-145)
[2020-10-06 13:13] LABS: COVID19 -Nasal RAPID Negative (Negative)
[2020-10-06 13:24] LABS: NT-proBNP (BNP-Adult 18+) 2120 pg/mL (<450); Troponin I < 0.012 ng/mL (0.01-0.034)
[2020-10-06 13:25] LABS: Lactate (Lactic Acid) 5.6 mmol/L (0.7-2.1)
[2020-10-06 13:30] LABS: Procalcitonin < 0.05 ng/mL (<0.5)
[2020-10-06 14:53] LABS: Reflexed Lactate in 2 Hours Y
[2020-10-06 15:07] LABS: Creatine Kinase 33 U/L (55-170)
[2020-10-06 15:09] LABS: Lactate 2HR (Lactic Acid Rflx) 4.7 mmol/L (0.7-2.1)
[2020-10-06 15:20] LABS: Troponin I < 0.012 ng/mL (0.01-0.034)
[2020-10-06 18:07] LABS: Bacteria Urine None Seen; RBC Urine None Seen (0-5/HPF)
[2020-10-06 18:09] LABS: Appearance Urine UA CLEAR; Bilirubin Urine UA NEGATIVE (NEGATIVE); Color Urine UA YELLOW; Glucose Urine UA NEGATIVE (Negative); Ketones Urine UA TRACE (NEGATIVE); Leukocyte Esterase Urine UA NEGATIVE (NEGATIVE); Nitrite Urine UA NEGATIVE (Negative); Occult Blood Urine UA NEGATIVE (Negative); Protein Urine UA NEGATIVE (Negative); Urobilinogen Urine UA 0.2 E.U./dL (0.2); pH Urine UA 5.5 (4.5-8.0)
[2020-10-06 18:15] LABS: Culture Indicated Urine Cult Not Indicated; Squamous Epithelial Cell Urine 0-1 /HPF (0-5/HPF); WBC Urine 0-1/HPF (0-5/HPF)
--- NOTE | 2020-10-06 19:53 | PC.NURSE ---
jaspreet notified of orthostatic vital results,he was not dizzy or had any other symptoms.Jaspreet will hang next iv fluids.
[2020-10-06 20:09] LABS: Creatine Kinase 30 U/L (55-170); Lactate (Lactic Acid) 3.3 mmol/L (0.7-2.1)
[2020-10-06] MEDS: SODIUM CHLORIDE 0.9% 1,000 ML 75 ML IV (20:10)
[2020-10-06 20:22] LABS: Troponin I < 0.012 ng/mL (0.01-0.034)
[2020-10-06 21:47] LABS: Reflexed Lactate in 2 Hours Y
[2020-10-06] MEDS: FINASTERIDE 5 MG TABLET PO (22:44)
[2020-10-06] MEDS: DULOXETINE 30 MG CAPSULE PO (22:44)
[2020-10-06 22:54] LABS: Lactate 2HR (Lactic Acid Rflx) 3.4 mmol/L (0.7-2.1)
[2020-10-07] VITALS (8 sets, daily range): BP systolic 108–142; BP diastolic 63–76; PULSE 69–70; RESP 15–18; TEMP 36.2–36.7; O2SAT 97–99
--- NOTE | 2020-10-07 02:15 | PC.NURSE ---
[id number] Received safe hand-off report. Was told by evening shift nurse that the patient is a DNR and that Dr. Diane Howard was informed and was asked to order that in the chart, and Dr. Howard agreed to do it in the morning.
[2020-10-07 06:18] LABS: Add Manual Diff / Slide Review NO; Basophils Absolute Auto 0 /uL (0-100); Basophils Percent Auto 0.9 % (0-2); Eosinophils Absolute Auto 100 /uL (0-450); Eosinophils Percent Auto 1.6 % (2-4); Hematocrit 29.9 % (41-53); Hemoglobin 10.2 g/dL (13.5-17.5); Lymphocytes Absolute Auto 1400 /uL (1100-4500); Lymphocytes Percent Auto 29.4 % (25-40); Mean Corpuscular HGB Conc 34.3 % (30-36); Mean Corpuscular Hemoglobin 33.3 PG (26-34); Mean Corpuscular Volume 97.1 fL (80-100); Monocytes Absolute Auto 600 /uL (0-900); Monocytes Percent Auto 12.5 % (3-14); Neutrophils Absolute Auto 2600 /uL (1500-7000); Neutrophils Percent Auto 55.6 % (50-75); Platelet Count 240 X10^3/uL (150-400); Red Blood Cell Count 3.07 X10^6/uL (4.5-5.9); Red Cell Distribution Width 13.6 % (11.6-14.8); White Blood Cell Count 4.7 X10^3/uL (4.5-11.0)
[2020-10-07 06:23] LABS: Lactate (Lactic Acid) 1.7 mmol/L (0.7-2.1)
[2020-10-07 06:24] LABS: Alanine Aminotransferase 22 IU/L (<50); Albumin 3.1 g/dL (3.5-5.0); Albumin Globulin Ratio 1.3 (1.0-2.8); Alkaline Phosphatase 60 U/L (38-126); Aspartate Aminotransferase 23 IU/L (17-59); BUN Creatinine Ratio 16.9 (6-22); Bilirubin Total 0.5 mg/dL (0.2-1.3); Blood Urea Nitrogen 20 mg/dL (9-20); Calcium 8.6 mg/dL (8.4-10.2); Carbon Dioxide 28 mmol/L (22-32); Chloride 101 mmol/L (98-107); Estimated Glomerular Filt Rate 58.7 mL/min (>60); Globulin 2.3 g/dL (1.7-4.1); Glucose 119 mg/dL (80-110); HEMOLYSIS < 15 (0-50); Magnesium 1.3 mg/dL (1.6-2.3); Potassium 4.2 mmol/L (3.4-5.1); Sodium 131 mmol/L (137-145); Total Protein 5.4 g/dL (6.3-8.2)
[2020-10-07 06:33] LABS: NT-proBNP (BNP-Adult 18+) 1470 pg/mL (<450)
[2020-10-07 06:36] LABS: Troponin I < 0.012 ng/mL (0.01-0.034)
--- NOTE | 2020-10-07 09:57 | PM.HP.1 ---
History of Present Illness History of Present Illness Date Patient Seen: 10/06/20 Time Patient Seen: 19:30 Chief complaint: Nausea and dizzy,stent 1 week ago Narrative: This is a very pleasant 85-year-old male who formally was under the care of Dr. Smith. He is brought to the emergency department by paramedics due to complaints of dizziness and unsteadiness. Patient has a very complicated history. He has a history of peripheral neuropathy and autonomic dysfunction. He also has a history of sick sinus syndrome and has had a pacemaker since 2013. He has type 2 diabetes and hypertension and hyperlipidemia and coronary artery disease. He was recently hospitalized I believe September 23 and was shipped to [facility] and underwent cardiac catheterization and then she was shipped to [facility] for drug eluting stent which was placed. He was discharged home on September 29 with new medications including Imdur 30 mg daily and metoprolol 25 mg twice daily. These were both new medications to him though it is a bit confusing looking through the records. He was doing fine when he went home and his gave him his 1st dose of Imdur on Monday and he slept all day. He then was a little better on Monday and a little better on Monday and he did very well on Monday but then had sudden onset of feeling dizzy and being unsteady to the point that his thought he would fall. He did not have associated chest pain or tachycardia or shortness of breath or diaphoresis. He did have nausea but did not have vomiting. He has previously had presyncopal episodes up but he did not feel this way. He has previously had nausea and vomiting but this time did not have the vomiting and they felt it was different than his autonomic dysfunction. His who is very astute and aware did take his blood pressure which was in the low 90s systolic. Evaluation emergency room showed a normal chest x-ray an EKG and labs were normal except for a significantly elevated lactic acid and on repeat it was still elevated the last. His BNP was in the 2000 range which was down from his last ER visit on September 23 and the 6000 range. He was gently given IV fluids and was admitted to the hospital. His past medical history, past surgical history are unchanged from last visit. Except coronary artery disease with drug-eluting stent placed September 2020 at [facility] Medications are changed and that he is now on Plavix 75 mg daily; metoprolol 25 mg twice daily; amiodarone 100 mg daily; Imdur 30 mg once daily; baby aspirin daily Of note he recently saw a neurologist Dr. Carrillo on 09/01/2020 and he felt a combination of autonomic dysfunction as well as peripheral neuropathy he did blood work to rule out myasthenia gravis which I presume was negative patient with some depressive symptoms was started on sertraline and had significant pain peripheral neuropathy so he was switched back off the sertraline back on to duloxetine. Family history: Mom with dementia Review of systems: Negative for any racing heart or palpitations. Negative for any chest pain or shortness of breath or diaphoresis. Negative for fever chills or cough COVID test is negative No bright red blood per rectum no black tarry stools no hematochezia No headache Patient History Medical History Anxiety CAD (coronary artery disease) DDD (degenerative disc disease), cervical Depression Diabetes Dyslipidemia Dysuria Elevated serum homocysteine level History of angina History of CVA (cerebrovascular accident) History of dizziness History of esophageal reflux History of fatigue History of hematuria Impotence Lumbosacral radiculopathy at L5 Memory deficit Neuropathy of both feet Osteoarthritis Pacemaker (~2013) Paroxysmal A-fib 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 RBBB Renal insufficiency Sick sinus syndrome Sleep apnea (~2012) Spinal stenosis in cervical region Spinal stenosis of lumbar region TIA (transient ischemic attack) Urinary retention Surgical History H/O laminectomy H/O shoulder surgery H/O thumb surgery History of appendectomy History of bladder surgery History of cardiac cath (~2012) History of cholecystectomy (~2012) History of cystoscopy History of lumbar fusion History of tonsillectomy History of vasectomy Status post right foot surgery Family & Social History Social History: household members spouse Prior Living Arrangements Assisted Living lives independently Yes caregiver/support person No Safety & Behavioral: Feels Safe in Current Yes Environment Been Physically Hurt or No Threatened By a Person Suicidal Ideation Description None Suicide Plan Description No Plan Tobacco & Substance use: Smoking Status Never smoker alcohol intake current alcohol intake frequency holiday/special occasion Substance Use Type does not use Meds Home Medications and Allergies Home Medications Medication Instructions Recorded Confirmed Type nitroglycerin 0.4 mg SL Q5-15M PRN #30 tab 06/29/18 10/06/20 Rx levothyroxine 75 mcg PO QAM 08/27/18 10/06/20 History metformin 500 mg PO BID 08/27/18 10/06/20 History amiodarone 200 mg tablet 100 mg PO QAM tab 12/24/18 10/06/20 History aspirin 81 mg tablet,delayed 81 mg PO QAM 12/24/18 10/06/20 History release finasteride 5 mg PO BEDTIME 07/06/20 10/06/20 History atorvastatin 20 mg PO QAM 09/23/20 10/06/20 History duloxetine 30 mg PO BEDTIME 09/23/20 10/06/20 History esomeprazole magnesium 40 mg PO BID 09/23/20 10/06/20 History ondansetron HCl 4 mg PO TID PRN 09/23/20 10/06/20 History hydrocodone-acetaminophen 1 tab PO Q6H PRN 10/06/20 10/06/20 History isosorbide dinitrate 30 mg PO PRN PRN 10/06/20 10/06/20 History metoprolol tartrate 50 mg PO BID 10/06/20 10/06/20 History Allergies Allergy/AdvReac Type Severity Reaction Status Date / Time Cjqmadr-Ylf-Civ Reductase Allergy Intermediate MUSCLE PAIN Verified 10/06/20 13:03 Inhibitor [[id number] REDUCTASE INHIBITOR] piroxicam [PIROXICAM] Allergy Mild NAUSEA, Verified 10/06/20 13:03 VOMITING dabigatran etexilate AdvReac Hematuria Verified 10/06/20 13:03 Review of Systems Review of Systems Narrative: Otherwise negative other than HPI Exam Vital Signs (past 8 hours): - 10/07/20 05:02 10/07/20 07:50 Temperature 98.0 F 97.5 F L Pulse Rate 69 70 Respiratory Rate 16 15 Blood Pressure 109/64 141/71 H Pulse Oximetry 97 Oxygen Delivery Method Room Air Narrative Exam Narrative: Alert and oriented x3. Appears well in no apparent distress HEENT: Unremarkable Neck: Supple without adenopathy Chest: Clear to auscultation without wheezes rhonchi or crackles Cor: Regular rate and rhythm without murmur Abdomen: Positive bowel sounds, soft, nontender, nondistended, no hepatosplenomegaly Extremities: No edema, pulses intact Neurologic exam nonfocal Skin no rashes Objective Labs Result Diagrams: 10/07/20 05:40 10/07/20 05:40 Labs: Laboratory Results - last 24 hr 10/06/20 10/06/20 10/06/20 12:33 12:43 12:43 WBC 5.3 RBC 3.40 L Hgb 11.3 L Hct 33.3 L MCV 97.8 MCH 33.2 MCHC 34.0 RDW 13.7 Plt Count 265 Neut % (Auto) 67.9 Lymph % (Auto) 20.4 L [place] % (Auto) 9.9 Eos % (Auto) 0.9 L Baso % (Auto) 0.9 Neut # (Auto) 3600 Lymph # (Auto) 1100 [place] # (Auto) 500 Eos # (Auto) 0 Baso # (Auto) 0 PT 13.6 H INR 1.2 Sodium Potassium Chloride Carbon Dioxide BUN Creatinine Estimated GFR BUN/Creatinine Ratio Glucose Lactate Calcium Magnesium Total Bilirubin AST ALT Alkaline Phosphatase Total Creatine Kinase CK-MB (CK-2) CK-MB (CK-2) Rel Index Troponin I NT-Pro-B Natriuret Pep Total Protein Albumin Globulin Albumin/Globulin Ratio Procalcitonin Urine Color Urine Appearance Urine pH Ur Specific [place] Urine Protein Urine Glucose (UA) Urine Ketones Urine Occult Blood Urine Nitrate Urine Bilirubin Urine Urobilinogen Ur Leukocyte Esterase Urine RBC Urine WBC Ur Squamous Epith Cells Urine Bacteria Ur Culture Indicated? SARS-CoV-2 (PCR) Negative 10/06/20 10/06/20 10/06/20 12:43 12:43 12:43 WBC RBC Hgb Hct MCV MCH MCHC RDW Plt Count Neut % (Auto) Lymph % (Auto) [place] % (Auto) Eos % (Auto) Baso % (Auto) Neut # (Auto) Lymph # (Auto) [place] # (Auto) Eos # (Auto) Baso # (Auto) PT INR Sodium 132 L Potassium 5.1 Chloride 97 L Carbon Dioxide 25 BUN 21 H Creatinine 1.21 Estimated GFR 57.0 L BUN/Creatinine Ratio 17.4 Glucose 139 H Lactate 5.6 H* Calcium 9.1 Magnesium Total Bilirubin 0.5 AST 30 ALT 24 Alkaline Phosphatase 64 Total Creatine Kinase CK-MB (CK-2) CK-MB (CK-2) Rel Index Troponin I < 0.012 NT-Pro-B Natriuret Pep 2120 H Total Protein 6.0 L Albumin 3.6 Globulin 2.4 Albumin/Globulin Ratio 1.5 Procalcitonin < 0.05 Urine Color Urine Appearance Urine pH Ur Specific [place] Urine Protein Urine Glucose (UA) Urine Ketones Urine Occult Blood Urine Nitrate Urine Bilirubin Urine Urobilinogen Ur Leukocyte Esterase Urine RBC Urine WBC Ur Squamous Epith Cells Urine Bacteria Ur Culture Indicated? SARS-CoV-2 (PCR) 10/06/20 10/06/20 10/06/20 14:45 14:45 16:04 WBC RBC Hgb Hct MCV MCH MCHC RDW Plt Count Neut % (Auto) Lymph % (Auto) [place] % (Auto) Eos % (Auto) Baso % (Auto) Neut # (Auto) Lymph # (Auto) [place] # (Auto) Eos # (Auto) Baso # (Auto) PT INR Sodium Potassium Chloride Carbon Dioxide BUN Creatinine Estimated GFR BUN/Creatinine Ratio Glucose Lactate 4.7 H* Calcium Magnesium Total Bilirubin AST ALT Alkaline Phosphatase Total Creatine Kinase 33 L CK-MB (CK-2) TNP CK-MB (CK-2) Rel Index TNP Troponin I < 0.012 NT-Pro-B Natriuret Pep Total Protein Albumin Globulin Albumin/Globulin Ratio Procalcitonin Urine Color Yellow Urine Appearance Clear Urine pH 5.5 Ur Specific [place] 1.020 Urine Protein Negative Urine Glucose (UA) Negative Urine Ketones Trace H Urine Occult Blood Negative Urine Nitrate Negative Urine Bilirubin Negative Urine Urobilinogen 0.2 Ur Leukocyte Esterase Negative Urine RBC None seen Urine WBC 0-1/hpf Ur Squamous Epith Cells 0-1 /hpf Urine Bacteria None seen Ur Culture Indicated? Cult not indicated SARS-CoV-2 (PCR) 10/06/20 10/06/20 10/06/20 19:44 19:44 22:35 WBC RBC Hgb Hct MCV MCH MCHC RDW Plt Count Neut % (Auto) Lymph % (Auto) [place] % (Auto) Eos % (Auto) Baso % (Auto) Neut # (Auto) Lymph # (Auto) [place] # (Auto) Eos # (Auto) Baso # (Auto) PT INR Sodium Potassium Chloride Carbon Dioxide BUN Creatinine Estimated GFR BUN/Creatinine Ratio Glucose Lactate 3.3 H 3.4 H Calcium Magnesium Total Bilirubin AST ALT Alkaline Phosphatase Total Creatine Kinase 30 L CK-MB (CK-2) TNP CK-MB (CK-2) Rel Index TNP Troponin I < 0.012 NT-Pro-B Natriuret Pep Total Protein Albumin Globulin Albumin/Globulin Ratio Procalcitonin Urine Color Urine Appearance Urine pH Ur Specific [place] Urine Protein Urine Glucose (UA) Urine Ketones Urine Occult Blood Urine Nitrate Urine Bilirubin Urine Urobilinogen Ur Leukocyte Esterase Urine RBC Urine WBC Ur Squamous Epith Cells Urine Bacteria Ur Culture Indicated? SARS-CoV-2 (PCR) 10/07/20 10/07/20 10/07/20 05:40 05:40 05:40 WBC 4.7 RBC 3.07 L Hgb 10.2 L Hct 29.9 L MCV 97.1 MCH 33.3 MCHC 34.3 RDW 13.6 Plt Count 240 Neut % (Auto) 55.6 Lymph % (Auto) 29.4 [place] % (Auto) 12.5 Eos % (Auto) 1.6 L Baso % (Auto) 0.9 Neut # (Auto) 2600 Lymph # (Auto) 1400 [place] # (Auto) 600 Eos # (Auto) 100 Baso # (Auto) 0 PT INR Sodium 131 L Potassium 4.2 Chloride 101 Carbon Dioxide 28 BUN 20 Creatinine 1.18 Estimated GFR 58.7 L BUN/Creatinine Ratio 16.9 Glucose 119 H Lactate 1.7 Calcium 8.6 Magnesium 1.3 L Total Bilirubin 0.5 AST 23 ALT 22 Alkaline Phosphatase 60 Total Creatine Kinase CK-MB (CK-2) CK-MB (CK-2) Rel Index Troponin I NT-Pro-B Natriuret Pep 1470 H Total Protein 5.4 L Albumin 3.1 L Globulin 2.3 Albumin/Globulin Ratio 1.3 Procalcitonin Urine Color Urine Appearance Urine pH Ur Specific [place] Urine Protein Urine Glucose (UA) Urine Ketones Urine Occult Blood Urine Nitrate Urine Bilirubin Urine Urobilinogen Ur Leukocyte Esterase Urine RBC Urine WBC Ur Squamous Epith Cells Urine Bacteria Ur Culture Indicated? SARS-CoV-2 (PCR) 10/07/20 05:40 WBC RBC Hgb Hct MCV MCH MCHC RDW Plt Count Neut % (Auto) Lymph % (Auto) [place] % (Auto) Eos % (Auto) Baso % (Auto) Neut # (Auto) Lymph # (Auto) [place] # (Auto) Eos # (Auto) Baso # (Auto) PT INR Sodium Potassium Chloride Carbon Dioxide BUN Creatinine Estimated GFR BUN/Creatinine Ratio Glucose Lactate Calcium Magnesium Total Bilirubin AST ALT Alkaline Phosphatase Total Creatine Kinase CK-MB (CK-2) CK-MB (CK-2) Rel Index Troponin I < 0.012 NT-Pro-B Natriuret Pep Total Protein Albumin Globulin Albumin/Globulin Ratio Procalcitonin Urine Color Urine Appearance Urine pH Ur Specific [place] Urine Protein Urine Glucose (UA) Urine Ketones Urine Occult Blood Urine Nitrate Urine Bilirubin Urine Urobilinogen Ur Leukocyte Esterase Urine RBC Urine WBC Ur Squamous Epith Cells Urine Bacteria Ur Culture Indicated? SARS-CoV-2 (PCR) Assessment & Plan Assessment & Plan narrative: 85-year-old male with multiple medical problems admitted for dizziness with elevated lactic acid. Assessment 1. Elevated lactic acid of unclear etiology. No evidence of focal infectious finding. His acted acid is now improved. I am not sure if it was somehow related to hypotensive episode related to the Imdur. Plan: We will get patient up with physical therapy and reassess. I will discuss stopping Imdur with Dr. 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 Assessment 2. Dizziness of unclear etiology suspect multifactorial in a patient with multiple medical problems including coronary artery disease with a recent stent placement Plan: Will replace magnesium Will consult physical therapy Will reassess possibly home tomorrow or later today depending how he does with physical therapy. This is been a recurrent problem. Certainly in part related to autonomic dysfunction as well as related to his heart disease in the medications we have him on to optimize his heart function. Lengthy discussion with the patient regarding these interrelated issues and complicating factors. He and his voiced good understanding. We will stop his IV fluids and see how he does. Assessment 3. Coronary artery disease with 2 recent drug-eluting stent without current issues. CK troponin negative x3 BNP improved with IV fluids Plan: Continue Plavix, metoprolol 25 b.i.d., hold Imdur and will discuss with Cardiology if we can stop this as I think this was the causative problem for his dizziness. Continue with a statin and amiodarone Assessment 4. Sick sinus syndrome with pacemaker Plan: No events overnight Plan: Continue with amiodarone. Continue with metoprolol Will stop telemetry Assessment 5. Atrial fibrillation/a flutter without current episodes Plan: Continue amiodarone and metoprolol. Continue with Plavix. Previously was on blood thinner but due to recurrent falls was discontinued. At this point we will continue off. Will discuss with Cardiology Assessment 6. Hyperlipidemia Plan: Continue atorvastatin Assessment 7. Hypomagnesemia Plan: Will replace and recheck Assessment 8. GERD stable Plan: Continue Nexium 40 b.i.d. Assessment 9. Type 2 diabetes on metformin as outpatient Plan: Will continue the same and restart today Next hypothyroidism Plan: Continue on levothyroxine Assessment 11. BPH Plan: Will continue on finasteride Assessment 12. Peripheral neuropathy Plan continue on duloxetine Code status is DNR/DNI COVID-19 COVID-19 status: Negative Result date/Date tested (Pos, Neg/Pending): 10/06/20
--- NOTE | 2020-10-07 10:17 | PC.NURSE ---
Addendum entered by Tiana Bailey R.N. 10/07/20 14:39: Patients bp dropped to 80/40 when doing ortho pressures with physical therapy, asymtomatic. Left a note with at the office. Original Note: Assess- Patient is A&Ox3, he denies pain. BS this am 126. Lung Sounds wnl and hr regular. He has been weak and feeling nauseous before being admitted to the hospital but denies now. is support person in the room and this Rn will be giving him his medications and infusing a mag rider through his iv as his magnesium levels are low.
--- NOTE | 2020-10-07 10:20 | CM.DANOTE ---
DCP: Case received, EMR reviewed and met with patient. , Siri, was also in room. Introduced self and role. Was able to obtain information from patient regarding his baseline activity status and living situation prior to hospitalization. DCP assessment completed with information currently available. Patient is an 85 year old male who admitted yesterday afternoon to the care of the hospitalist team. PCP: Dr. Howard. Payer: confirmed: Medicare/[employer]. Patient came to the hospital via ambulance secondary to having nausea and dizziness. Patient holds diagnosis of hyponaremia. Asked Dr. Howard about P.T. orders, and she stated that she just put orders in. Met with patient, , Siri, was in his room. Patient resides at [facility], which is an independent half-way facility. He uses a FWW at his baseline. Patient is alert and oriented. mentioned that patient has used [facility] in the past, but unsure if he will need it. P: DCP to continue to follow. Patient most likely will be DC tomorrow if stable, and will see P.T. recommendations if he needs home health. Mirta Brennan RN/Squaring Machine Operator
[2020-10-07] MEDS: ASPIRIN EC 81 MG TABLET PO (11:08)
[2020-10-07] MEDS: CLOPIDOGREL 75 MG TABLET PO (11:09)
[2020-10-07] MEDS: METOPROLOL ER 50 MG TABLET 25 MG PO (11:09)
[2020-10-07] MEDS: AMIODARONE 100 MG TABLET PO (11:09)
[2020-10-07] MEDS: MAGNESIUM SULFATE 2 GM/50 ML PIGGYBACK IV (11:09)
[2020-10-07] MEDS: INSULIN ASPART 100 UNIT/ML INSULN PEN SUBCUT ×2 (11:25→16:59)
--- NOTE | 2020-10-07 13:35 | PT.IIE ---
Surgical History (Last Reviewed 10/07/20 @ 09:57 by Diane Howard MD) H/O laminectomy H/O shoulder surgery H/O thumb surgery History of appendectomy History of bladder surgery History of cardiac cath (~2012) History of cholecystectomy (~2012) History of cystoscopy History of lumbar fusion History of tonsillectomy History of vasectomy Status post right foot surgery Medical History (Last Reviewed 10/07/20 @ 09:57 by Diane Howard MD) Anxiety CAD (coronary artery disease) DDD (degenerative disc disease), cervical Depression Diabetes Dyslipidemia Dysuria Elevated serum homocysteine level History of angina History of CVA (cerebrovascular accident) History of dizziness History of esophageal reflux History of fatigue History of hematuria Impotence Lumbosacral radiculopathy at L5 Memory deficit Neuropathy of both feet Osteoarthritis Pacemaker (~2013) Paroxysmal A-fib 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 RBBB Renal insufficiency Sick sinus syndrome Sleep apnea (~2012) Spinal stenosis in cervical region Spinal stenosis of lumbar region TIA (transient ischemic attack) Urinary retention Physical Therapy Inpatient Evaluation/Re-Eval M1 PT/OT-IP Prior Functional Status Start: 10/07/20 15:21 Freq: NEEDED Status: Active Protocol: Document 10/07/20 13:35 AB (Rec: 10/07/20 16:05 AB [id number]) Medical Review Prior Functional Status Medical History Reviewed Yes Communication able to make needs known Mobility and Gait pt stated that he is able to move around without assistance most of the time using a FWW but his spouse is with him providing SBA when needed. Social History Household Members spouse Living Arrangements Senior Living Facility Number of Floors (Floors) One Floor Number of Stairs To Enter/Railing? lives at [facility] Home Environment Walk in Shower Home Equipment Front Wheel Walker,Shower Seat without Backrest,Hand Held Shower,Grab Bars Near Toilet, Grab Bars In Shower M2 PT-IP Current Condition Start: 10/07/20 15:21 Freq: NEEDED Status: Active Protocol: Document 10/07/20 13:35 AB (Rec: 10/07/20 16:05 AB [id number]) Physical Therapy Current Condition Current Condition Evaluation Date 10/07/20 Treatment Diagnosis dizziness; difficulty in walking Onset Date 10/06/20 Precautions Other Precautions BP M3 PT-IP Subjective Start: 10/07/20 15:21 Freq: NEEDED Status: Active Protocol: Document 10/07/20 13:35 AB (Rec: 10/07/20 16:05 AB [id number]) Subjective Physical Therapy Visit Type Type Initial Evaluation Visit Start Time 13:35 Visit Stop Time 14:04 Total Visit Minutes 29 Number of OPAL POLISHER Visits 0 Physical Therapy Visit Comments Patient Comments pt is agreeable to do PT Therapy Pain Assessment Pain Present Pain Present Denied Pain M4 PT-IP Mobility and Gait Start: 10/07/20 15:21 Freq: NEEDED Status: Active Protocol: Document 10/07/20 13:35 AB (Rec: 10/07/20 16:05 AB [id number]) PT-Bed Mobility Assessment Supine to Sit Supine to Sit Standby Assistance Sit to Supine Sit to Supine Standby Assistance PT-Transfer Assessment Sit to and From Stand Sit to and from Stand Standby Assistance Equipment Transfer Assistive Device Gait Belt,Front Wheeled Walker Orthotic/Prosthetic Devices or Brace: No Comments Mobility Comments BP monitored. BP in supine with HOB elevated: 129/72. pt completed supine to sit SBA and was able to sit on EOB SBA . BP with initial sittin /40. pt without c/o dizziness /nausea/lightheadedness. BP checked again in sitting after 3 mins: 125/67. pt completed sit to stand SBA. able to standing using FWW for support SBA. BP with initial standing 80/46 but pt is asymptomatic. tolerated standing and BP checked again: 103/59. ambulated in room using FWW 50 ft SBA to CGA. BP after ambulation: 107/ 74requested to go back to bed afterwards. completed sit to supine SBA. positioned in bed . call light and table placed within reach. Gait Assessment Gait Gait Assistance Required: Standby Assistance,Contact Guard Assist Distance (Feet) 50 Able to Maintain Weight Bearing Status Yes During Gait Assistive Devices Assistive Device Gait Belt,Front Wheeled Walker Orthotic/Prosthetic Devices or Brace: No Factors Limiting Gait Function Factors Limiting Gait Function Decreased Activity Tolerance, Decreased Strength,Poor Balance,Poor Safety Awareness PT-Balance Assessment Sitting Balance and Reactions Static Sitting Balance Ability Good Dynamic Sitting Balance Ability Good Standing Balance and Reactions Static Standing Balance Ability Good Dynamic Standing Balance Ability Fair Device Used FWW M5 PT-IP Objective Assessments Start: 10/07/20 15:21 Freq: NEEDED Status: Active Protocol: Document 10/07/20 13:35 AB (Rec: 10/07/20 16:05 AB [id number]) Orientation Orientation/Cognition Level of Alertness Alert Orientation Name Memory Description Short Term Impaired Gross Range of Motion Lower Extremity ROM Assessment Within Functional Limits Strength Lower Extremity Strength Assessment Within Functional Limits Muscle Tone Muscle Tone WNL Yes M6 PT-IP Treatment Start: 10/07/20 15:21 Freq: NEEDED Status: Active Protocol: Document 10/07/20 13:35 AB (Rec: 10/07/20 16:05 AB [id number]) Physical Therapy Treatment Education Education Provided Safety M7 PT-IP Assessment and Plan Start: 10/07/20 15:21 Freq: NEEDED Status: Active Protocol: Document 10/07/20 13:35 AB (Rec: 10/07/20 16:05 AB [id number]) PT Summary Assessment and Plan Potential Rehabilitation Potential Good Status of Condition at Evaluation Stable Summary Impairments Pain,ROM,Strength,Balance,Tone ,Cognition,Bed Mobility, Transfers,Gait,Activity Tolerance Assessment Summary pt requiring SBA to CGA with mobility and will have his spouse at home to assist him. Pt may go home when medically stable. Goals Bed Mobility Goal Independent Transfer Goal Independent Gait Goal Independent Gait Distance 150 Days to Meet Goals 3 Frequency of Treatment Frequency Of Treatment Once a Day Treatment Plan Physical Therapy Treatment Plan Bed Mobility Training,Transfer Training,Gait Training, Therapeutic Exercise,Balance Retraining,Discharge Planning, Hot or Cold Pack,Neuromuscular Re-ed,Coordination Retraining Recommendations To Nursing Amount of Assist Needed 1 Person Assist Discharge Recommendations PT Discharge Recommendations Home with Assistance Transportation Needs at Discharge Private Vehicle
[2020-10-07] MEDS: METFORMIN HCL 500 MG TABLET PO (16:59)
[2020-10-07 17:11] LABS: Magnesium 1.8 mg/dL (1.6-2.3)
[2020-10-07] MEDS: METOPROLOL ER 25 MG TABLET 12.5 MG PO (21:23)
[2020-10-07] MEDS: FINASTERIDE 5 MG TABLET PO (21:24)
[2020-10-07] MEDS: MAGNESIUM OXIDE 400 MG TABLET PO (21:24)
[2020-10-07] MEDS: DULOXETINE 30 MG CAPSULE PO (21:24)
[2020-10-07] MEDS: ATORVASTATIN 20 MG TABLET PO (21:24)
[2020-10-08] VITALS: BP 131/75; PULSE 68; RESP 18; TEMP 37; O2SAT 98
[2020-10-08 03:15] VITALS: PULSE 70; RESP 18; TEMP 36.3; O2SAT 98
[2020-10-08] MEDS: LEVOTHYROXINE 75 MCG TABLET PO (05:48)
[2020-10-08 05:56] LABS: Add Manual Diff / Slide Review NO; Basophils Absolute Auto 100 /uL (0-100); Eosinophils Absolute Auto 100 /uL (0-450); Eosinophils Percent Auto 1.9 % (2-4); Hematocrit 33.6 % (41-53); Hemoglobin 11.4 g/dL (13.5-17.5); Lymphocytes Absolute Auto 1400 /uL (1100-4500); Lymphocytes Percent Auto 27.2 % (25-40); Mean Corpuscular HGB Conc 33.9 % (30-36); Mean Corpuscular Hemoglobin 32.9 PG (26-34); Mean Corpuscular Volume 97.3 fL (80-100); Monocytes Absolute Auto 600 /uL (0-900); Monocytes Percent Auto 12.1 % (3-14); Neutrophils Absolute Auto 3000 /uL (1500-7000); Neutrophils Percent Auto 57.8 % (50-75); Platelet Count 261 X10^3/uL (150-400); Red Blood Cell Count 3.45 X10^6/uL (4.5-5.9); Red Cell Distribution Width 13.5 % (11.6-14.8); White Blood Cell Count 5.2 X10^3/uL (4.5-11.0)
[2020-10-08 06:03] LABS: BUN Creatinine Ratio 11.6 (6-22); Blood Urea Nitrogen 13 mg/dL (9-20); Calcium 8.7 mg/dL (8.4-10.2); Carbon Dioxide 28 mmol/L (22-32); Chloride 101 mmol/L (98-107); Estimated Glomerular Filt Rate > 60.0 mL/min (>60); Glucose 126 mg/dL (80-110); HEMOLYSIS < 15 (0-50); Potassium 4.4 mmol/L (3.4-5.1); Sodium 134 mmol/L (137-145)
[2020-10-08 06:11] LABS: Magnesium 1.6 mg/dL (1.6-2.3)
[2020-10-08 07:45] VITALS: PULSE 69; RESP 16; TEMP 36.9; O2SAT 98
[2020-10-08] MEDS: INSULIN ASPART 100 UNIT/ML INSULN PEN SUBCUT (08:29)
[2020-10-08] MEDS: ASPIRIN EC 81 MG TABLET PO (08:33)
[2020-10-08] MEDS: MAGNESIUM OXIDE 400 MG TABLET PO (08:33)
[2020-10-08] MEDS: AMIODARONE 100 MG TABLET PO (08:33)
[2020-10-08] MEDS: SODIUM CHLORIDE 0.9% FLUSH 10 ML IV (08:33)
[2020-10-08] MEDS: CLOPIDOGREL 75 MG TABLET PO (08:33)
[2020-10-08] MEDS: METFORMIN HCL 500 MG TABLET PO (08:33)
[2020-10-08] MEDS: METOPROLOL ER 25 MG TABLET 12.5 MG PO (08:34)
--- NOTE | 2020-10-08 08:37 | P.DS_ITS ---
History of Present Illness History of Present Illness Chief complaint: Nausea and dizzy,stent 1 week ago Narrative: This is a very pleasant 85-year-old male who formally was under the care of Dr. Smith. He is brought to the emergency department by paramedics due to complaints of dizziness and unsteadiness. Patient has a very complicated history. He has a history of peripheral neuropathy and autonomic dysfunction. He also has a history of sick sinus syndrome and has had a pacemaker since 2013. He has type 2 diabetes and hypertension and hyperlipidemia and coronary artery disease. He was recently hospitalized I believe September 23 and was shipped to [facility] and underwent cardiac catheterization and then she was shipped to [facility] for drug eluting stent which was placed. He was discharged home on September 29 with new medications including Imdur 30 mg daily and metoprolol 25 mg twice daily. These were both new medications to him though it is a bit confusing looking through the records. He was doing fine when he went home and his gave him his 1st dose of Imdur on Monday and he slept all day. He then was a little better on Monday and a little better on Monday and he did very well on Monday but then had sudden onset of feeling dizzy and being unsteady to the point that his thought he would fall. He did not have associated chest pain or tachycardia or shortness of breath or diaphoresis. He did have nausea but did not have vomiting. He has previously had presyncopal episodes up but he did not feel this way. He has previously had nausea and vomiting but this time did not have the vomiting and they felt it was different than his autonomic dysfunction. His who is very astute and aware did take his blood pressure which was in the low 90s systolic. Evaluation emergency room showed a normal chest x-ray an EKG and labs were normal except for a significantly elevated lactic acid and on repeat it was still elevated the last. His BNP was in the 2000 range which was down from his last ER visit on September 23 and the 6000 range. He was gently given IV fluids and was admitted to the hospital. His past medical history, past surgical history are unchanged from last visit. Except coronary artery disease with drug-eluting stent placed September 2020 at [facility] Medications are changed and that he is now on Plavix 75 mg daily; metoprolol 25 mg twice daily; amiodarone 100 mg daily; Imdur 30 mg once daily; baby aspirin daily Of note he recently saw a neurologist Dr. Carrillo on 09/01/2020 and he felt a combination of autonomic dysfunction as well as peripheral neuropathy he did blood work to rule out myasthenia gravis which I presume was negative patient with some depressive symptoms was started on sertraline and had significant pain peripheral neuropathy so he was switched back off the sertraline back on to duloxetine. Family history: Mom with dementia Review of systems: Negative for any racing heart or palpitations. Negative for any chest pain or shortness of breath or diaphoresis. Negative for fever chills or cough COVID test is negative No bright red blood per rectum no black tarry stools no hematochezia No headache Discharge Providers Provider Date of admission: 10/06/20 18:37 Discharge Date: 10/08/20 Primary care physician: Diane Howard MD Consults: 10/07/20 09:38 Consult to Physical Therapy Evaluate & Treat Comment: Physician Instructions: Evaluate and Treat Discharge provider: Diane Howard MD Summary Hospital Course Discharge Diagnosis: Dizziness resolved suspect related to hypotension due to new cardiac medications, Imdur 30 mg and metoprolol 50 mg twice daily. These medications were either discontinued or decreased and patient's condition improved. Coronary artery disease, with recent drug-eluting stent, stable without symptoms Diabetes type 2, stable Hyperlipidemia, stable Hypothyroidism, stable Peripheral neuropathy, stable Atrial fibrillation, unchanged, pacemaker in place, no rapid ventricular rate Hospital Course: 35 minutes spent with patient in discharge Patient with complicated medical history. Received drug-eluting stent at [facility] earlier this week. Was discharged on September 29. Was discharged on new medications Imdur 30 mg and metoprolol 50 mg twice daily. Patient's symptoms started when he started on the Imdur. Patient presented to ER with dizziness and workup showed elevated lactic acid. This resolved by hospital day 2. There was no specific treatment. Urine culture was negative, blood cultures negative prelim, no leukocytosis or fever. COVID negative. Above medications were discontinued or decreased and patient's condition improved to the point that he was near baseline at the time of discharge on hosp ital day 3. Case was discussed with his learning officer Dr. yoan sims who agreed with reduction in metoprolol and stopping Imdur. There was no evidence of ischemia or cardiac event that precipitated this. Blood sugars were well controlled on the metformin. Status at Discharge Cognitive/behavioral status at discharge: oriented Functional status at discharge: independent ambulation Overall status at discharge: patient is progressing back to baseline Exam Vital Signs (past 8 hours): - 10/08/20 03:15 10/08/20 07:45 Temperature 97.4 F L 98.4 F Pulse Rate 70 69 Respiratory Rate 18 16 Pulse Oximetry 98 98 Oxygen Delivery Method Room Air Narrative Exam Narrative: Afebrile vital signs are stable Patient lying in bed comfortably in no apparent distress. Alert and oriented x3 with his sitting at bedside HEENT: Unremarkable Neck: Supple without masses Chest: Clear to auscultation without wheezes rhonchi or crackles Cor: Regular rate and rhythm with distant S1-S2 Abdomen: Positive bowel sounds, soft, nontender Extremities: Compression stockings in place. No edema, pulses intact Objective Labs Result Diagrams: 10/08/20 05:40 10/08/20 05:40 Labs: Laboratory Results - last 24 hr 10/07/20 10/08/20 10/08/20 16:48 05:40 05:40 WBC RBC Hgb Hct MCV MCH MCHC RDW Plt Count Neut % (Auto) Lymph % (Auto) [place] % (Auto) Eos % (Auto) Baso % (Auto) Neut # (Auto) Lymph # (Auto) Corson # (Auto) Eos # (Auto) Baso # (Auto) Sodium 134 L Potassium 4.4 Chloride 101 Carbon Dioxide 28 BUN 13 Creatinine 1.12 Estimated GFR > 60.0 BUN/Creatinine Ratio 11.6 Glucose 126 H Calcium 8.7 Magnesium 1.8 1.6 10/08/20 05:40 WBC 5.2 RBC 3.45 L Hgb 11.4 L Hct 33.6 L MCV 97.3 MCH 32.9 MCHC 33.9 RDW 13.5 Plt Count 261 Neut % (Auto) 57.8 Lymph % (Auto) 27.2 Corson % (Auto) 12.1 Eos % (Auto) 1.9 L Baso % (Auto) 1.0 Neut # (Auto) 3000 Lymph # (Auto) 1400 Corson # (Auto) 600 Eos # (Auto) 100 Baso # (Auto) 100 Sodium Potassium Chloride Carbon Dioxide BUN Creatinine Estimated GFR BUN/Creatinine Ratio Glucose Calcium Magnesium [facility] Medical History (Updated 10/08/20 @ 00:00 by ) Anxiety CAD (coronary artery disease) DDD (degenerative disc disease), cervical Depression Diabetes Dyslipidemia Dysuria Elevated serum homocysteine level History of angina History of CVA (cerebrovascular accident) History of dizziness History of esophageal reflux History of fatigue History of hematuria Impotence Lumbosacral radiculopathy at L5 Memory deficit Neuropathy of both feet Osteoarthritis Pacemaker (~2013) Paroxysmal A-fib 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 RBBB Renal insufficiency Sick sinus syndrome Sleep apnea (~2012) Spinal stenosis in cervical region Spinal stenosis of lumbar region TIA (transient ischemic attack) Urinary retention Surgical History H/O laminectomy H/O shoulder surgery H/O thumb surgery History of appendectomy History of bladder surgery History of cardiac cath (~2012) History of cholecystectomy (~2012) History of cystoscopy History of lumbar fusion History of tonsillectomy History of vasectomy Status post right foot surgery Social History marital status: details: aisha Horner, lives in [place] household members: spouse lives independently: Yes caregiver/support person: No housing: house Smoking Status: Never smoker alcohol intake: current substance use type: does not use Discharge Assessment & Plan Assessment and Plan Assessment: Dizziness secondary to hypotension, improved with cessation of Imdur Coronary artery disease, stable Hypothyroidism, stable Atrial fibrillation with sick sinus syndrome and pacemaker in place with no events on telemetry for 48 hours. CK and troponin x3 negative Elevated lactic acid which spontaneously resolved with IV fluid Mild dehydration improved with fluid Hypo magnesemia improved with replacement Plan of Treatment: ME home Follow-up with me next week patient has appointment on October 13 Patient will have labs prior to visit Medications changed were Imdur was stopped and metoprolol was decreased from 50 mg twice daily to 12.5 mg twice daily and patient was started on magnesium 400 mg twice daily. Prescriptions were sent to [facility] and [facility] is for this. Patient will continue same other medications Patient will monitor blood sugars Patient will follow-up with cardiology Discharge Plan Discharge Plan Patient Disposition: Home Discharge orders & Medications Prescriptions: New magnesium oxide 400 mg (241.3 mg magnesium) Tablet 400 mg PO BID Qty: 180 RF: 3 metoprolol succinate 25 mg Tablet Extended Release 24 Hr 12.5 mg PO BID Qty: 180 RF: 3 Continued nitroglycerin 0.4 mg tablet, sublingual 0.4 mg SL Q5-15M PRN (Reason: chest pain) Qty: 30 RF: 2 levothyroxine 75 mcg tablet 75 mcg PO QAM RF: 0 metformin 1,000 mg tablet 500 mg PO BID RF: 0 finasteride 5 mg Tablet 5 mg PO BEDTIME RF: 0 atorvastatin 20 mg tablet 20 mg PO QAM RF: 0 duloxetine 30 mg capsule,delayed release(DR/EC) 30 mg PO BEDTIME RF: 0 ondansetron HCl 4 mg tablet 4 mg PO TID PRN (Reason: nausea) RF: 0 esomeprazole magnesium 40 mg capsule,delayed release(DR/EC) 40 mg PO BID RF: 0 hydrocodone-acetaminophen 5-325 mg Tablet 1 tab PO Q6H PRN (Reason: Pain, Moderate) RF: 0 amiodarone 200 mg tablet 100 mg PO QAM RF: 0 aspirin [Adult Low Dose Aspirin] 81 mg tablet,delayed release (DR/EC) 81 mg PO QAM RF: 0 Discontinued metoprolol tartrate 50 mg Tablet 50 mg PO BID RF: 0 isosorbide dinitrate 30 mg Tablet 30 mg PO PRN PRN (Reason: Chest Pain) RF: 0 Follow up/Referrals: Diane Howard MD [Primary Care Provider] - Discharge Data Primary Care Provider: Diane Howard
[2020-10-08 08:53] VITALS: O2SAT 97
--- NOTE | 2020-10-08 10:06 | PT.IPTN ---
Current Diagnoses Dizziness and giddiness (10/06/20) Physical Therapy Treatment Note M2 PT-IP Current Condition Start: 10/07/20 15:21 Freq: NEEDED Status: Discharge Protocol: Document 10/07/20 13:35 AB (Rec: 10/07/20 16:05 AB [id number]) Physical Therapy Current Condition Current Condition Evaluation Date 10/07/20 Treatment Diagnosis dizziness; difficulty in walking Onset Date 10/06/20 Precautions Other Precautions BP M3 PT-IP Subjective Start: 10/07/20 15:21 Freq: NEEDED Status: Discharge Protocol: Document 10/08/20 09:56 KS (Rec: 10/08/20 12:14 KS [id number]) Subjective Physical Therapy Visit Type Type Treatment Note Visit Start Time 09:56 Visit Stop Time 10:06 Total Visit Minutes 10 Number of MEDICAL BILLING AND CODING INSTRUCTOR Visits 1 Physical Therapy Visit Comments Patient Comments pt is agreeable to do PT M4 PT-IP Mobility and Gait Start: 10/07/20 15:21 Freq: NEEDED Status: Discharge Protocol: Document 10/08/20 09:56 KS (Rec: 10/08/20 12:14 KS [id number]) PT-Transfer Assessment Sit to and From Stand Sit to and from Stand Independent Equipment Transfer Assistive Device Gait Belt,Front Wheeled Walker Orthotic/Prosthetic Devices or Brace: No Transfers Transfer Destination Chair Transfer Ability Level of Assist Independent Comments Mobility Comments Pt in chair upon arrival from therapy w/ present in room. Patient stated he does not have further needs, but was agreeable to ambulate. Pt sit<>stand I from chair w/ FWW and ambulated ~20 ft around room w/ FWW independently. Patient denied dizziniess and had no LOB and was able to avoid all obstacles and demonstrate safe use of FWW> Pt returned to chair independently. Confirms no stairs at home and already has FWW for home use. Gait Assessment Gait Gait Assistance Required: Independent Distance (Feet) 20 Able to Maintain Weight Bearing Status Yes During Gait Assistive Devices Assistive Device Gait Belt,Front Wheeled Walker Orthotic/Prosthetic Devices or Brace: No Factors Limiting Gait Function Factors Limiting Gait Function Decreased Activity Tolerance, Decreased Strength,Poor Balance Comments Gait Comments Pt ambulated ~20 ft w/ FWW independently w/ no LOB and safe use and obstacle avoidance w/ FWW. Stair Climbing Assessment Comments Stair Climbing Comments Not assessed, pt states no stairs at home. PT-Balance Assessment Sitting Balance and Reactions Static Sitting Balance Ability Good Dynamic Sitting Balance Ability Good Standing Balance and Reactions Static Standing Balance Ability Good Dynamic Standing Balance Ability Fair Device Used FWW M5 PT-IP Objective Assessments Start: 10/07/20 15:21 Freq: NEEDED Status: Discharge Protocol: Document 10/07/20 13:35 AB (Rec: 10/07/20 16:05 AB [id number]) Orientation Orientation/Cognition Level of Alertness Alert Orientation Name Memory Description Short Term Impaired Gross Range of Motion Lower Extremity ROM Assessment Within Functional Limits Strength Lower Extremity Strength Assessment Within Functional Limits Muscle Tone Muscle Tone WNL Yes M6 PT-IP Treatment Start: 10/07/20 15:21 Freq: NEEDED Status: Discharge Protocol: Document 10/08/20 09:56 KS (Rec: 10/08/20 12:14 KS [id number]) Physical Therapy Treatment Education Education Provided Safety M7 PT-IP Assessment and Plan Start: 10/07/20 15:21 Freq: NEEDED Status: Discharge Protocol: Document 10/08/20 09:56 KS (Rec: 10/08/20 12:14 KS [id number]) PT Summary Assessment and Plan Potential Rehabilitation Potential Good Status of Condition at Evaluation Stable Summary Impairments Pain,ROM,Strength,Balance,Tone ,Cognition,Bed Mobility, Transfers,Gait,Activity Tolerance Progress Towards Goals Progressing Toward Goals Assessment Summary Pt completed sit<>stand transfer and ambulation w/ FWW independently w/o need for cues. He had no LOB and was able to safely use FWW, denied dizziness. Patient may return home when medically stable. Goals Bed Mobility Goal Independent Transfer Goal Independent Gait Goal Independent Gait Distance 150 Days to Meet Goals 3 Frequency of Treatment Frequency Of Treatment Once a Day Treatment Plan Physical Therapy Treatment Plan Bed Mobility Training,Transfer Training,Gait Training, Therapeutic Exercise,Balance Retraining,Discharge Planning, Hot or Cold Pack,Neuromuscular Re-ed,Coordination Retraining Recommendations To Nursing Amount of Assist Needed 1 Person Assist Discharge Recommendations PT Discharge Recommendations Home with Assistance Transportation Needs at Discharge Private Vehicle
--- NOTE | 2020-10-08 11:34 | PC.NURSE ---
Discharge instructions reviewed with patient and his , they state understanding and have no further questions or concerns at this time. Patient states he has follow up appointment already scheduled for 10/13. IV removed intact. Patient escorted out via wheelchair with all belongings to home with his .
== END 2020-10-08 11:36 | disposition home or self-care (01) | DRG 281 ==
LOC: ED 18:34 → AC 10-07 09:29
PROVIDERS: Admitting Provider Family Medicine; Emergency Provider Emergency Medicine; PCP Family Medicine; Referring Provider Emergency Medicine; Visit Provider Family Medicine
DX: I95.2 Hypotension due to drugs (principal); I21.4 Non-ST elevation (NSTEMI) myocardial infarction; I48.92 Unspecified atrial flutter; I49.5 Sick sinus syndrome; I48.0 Paroxysmal atrial fibrillation; E11.42 Type 2 diabetes mellitus with diabetic polyneuropathy; T46.3X5A Adverse effect of coronary vasodilators, initial encounter; I10 Essential (primary) hypertension; E78.5 Hyperlipidemia, unspecified; I25.10 Atherosclerotic heart disease of native coronary artery without angina pectoris; Z95.0 Presence of cardiac pacemaker; Z95.5 Presence of coronary angioplasty implant and graft; Z20.822 Contact with and (suspected) exposure to COVID-19; Z79.4 Long term (current) use of insulin; R74.02 Elevation of levels of lactic acid dehydrogenase [LDH]; R42 Dizziness and giddiness; E83.42 Hypomagnesemia; K21.9 Gastro-esophageal reflux disease without esophagitis; E03.9 Hypothyroidism, unspecified; N40.0 Benign prostatic hyperplasia without lower urinary tract symptoms; Z66 Do not resuscitate
CPT/HCPCS: 36415; 71045; 80048; 80053; 81001; 81003; 82550; 82962; 83605; 83735; 83880; 84145; 84484; 85025; 85610; 87040; 87086; 87635; 93005; 93010; 96360; 96361; 97116; 97161; 99283; 99285; C9803; J3475

== ENCOUNTER → 2020-11-10 14:50 | Outpatient (CLI) | payer MEDICARE, OTHER, SELFPAY ==
[2020-10-06 20:13] VITALS: BMI 25.1
--- NOTE | 2020-11-10 | DI.RAD.S_ITS ---
PROCEDURE: XR SHOULDER LT MIN 2V INDICATIONS: NECK AND SHOULDER PAIN S/P FALL TECHNIQUE: 3 views of the shoulder were acquired. COMPARISON: None. FINDINGS: Bones: No fractures or dislocations. No suspicious bony lesions. Visualized ribs appear intact. Soft tissues: No suspicious soft tissue calcifications. IMPRESSION: No trauma found. Moderately severe acromioclavicular and glenohumeral joint osteoarthritis superimposed. Dictated by: Arnaldo Thompson M.D. on 11/10/2020 at 15:38 Approved by: Arnaldo Thompson M.D. on 11/10/2020 at 15:39
--- NOTE | 2020-11-10 | DI.RAD.S_ITS ---
PROCEDURE: XR CLAVICLE LT INDICATIONS: NECK AND SHOULDER PAIN S/P FALL TECHNIQUE: 2 views of the clavicle were acquired. COMPARISON: None. FINDINGS: Bones: No fractures or dislocations. No suspicious bony lesions. Soft tissues: No suspicious soft tissue calcifications. IMPRESSION: Moderately severe AC joint osteoarthritis. Moderately severe glenohumeral joint osteoarthritis also. No trauma over the clavicle or left shoulder. Dictated by: Arnaldo Thompson M.D. on 11/10/2020 at 15:38 Approved by: Arnaldo Thompson M.D. on 11/10/2020 at 15:38
--- NOTE | 2020-11-10 | DI.RAD.S_ITS ---
PROCEDURE: XR CERVICAL SPINE 2V OR 3V INDICATIONS: NECK AND SHOULDER PAIN S/P FALL TECHNIQUE: 3 view(s) of the cervical spine were acquired. COMPARISON: [facility], CR, XR CERVICAL SPINE 2V OR 3V, 04/03/2018, 12:44. [facility], CR, XR CERVICAL SPINE 2V OR 3V, 01/26/2018, 12:14. FINDINGS: Bones: No fractures or dislocations to the T1 level. The lateral masses of C1 appear intact on the odontoid view. No suspicious bony lesions. Note is made of prior anterior fusion plate, C5 through C7, without evidence of device loosening or disruption. Soft tissues: No prevertebral soft tissue swelling. IMPRESSION: Normal alignment maintained by anterior fusion plating C5 through C7, no sign of trauma, no source of new pain is seen after fall. Dictated by: Arnaldo Thompson M.D. on 11/10/2020 at 15:37 Approved by: Arnaldo Thompson M.D. on 11/10/2020 at 15:38
== END ==
PROVIDERS: PCP Family Medicine; Referring Provider Family Medicine; Visit Provider Family Medicine
DX: M54.2 Cervicalgia (principal); M19.012 Primary osteoarthritis, left shoulder; Z98.1 Arthrodesis status
CPT/HCPCS: 72040; 73000; 73030

== ENCOUNTER 2021-01-14 08:42 | Observation (INO) | payer MEDICARE, OTHER, SELFPAY ==
[2020-12-31 15:14] VITALS: BMI 25.1
[2021-01-14] VITALS (20 sets, daily range): BP systolic 122–211; BP diastolic 63–95; PULSE 68–70; RESP 14–43; TEMP 36.4–36.9; O2SAT 94–100; BMI 27.1; BMI 25.2
--- NOTE | 2021-01-14 | DI.CT.S_ITS ---
PROCEDURE: CT STROKE INDICATIONS: STROKE SYMPTOMS TECHNIQUE: Noncontrast 4.5 mm thick angled axial sections acquired from the foramen magnum to the vertex, with coronal reformats. For radiation dose reduction, the following was used: automated exposure control, adjustment of mA and/or kV according to patient size. COMPARISON: [facility], CT, CT ANGIO HEAD AND NECK, 07/16/2020, 17:38. [facility], CT, CT HEAD/BRAIN WO CON, 07/16/2020, 16:30. FINDINGS: Image quality: Excellent. CSF spaces: Basal cisterns are patent. No extra-axial fluid collections. The ventricles are symmetric in size and shape. Brain: No intracranial bleeds or masses. There is cerebral volume loss for age, with resultant ventricular and sulcal prominence. There are periventricular and deep white matter chronic small vessel ischemic changes. Small chronic left basal ganglia lacunar infarct. Small chronic right caudate head lacunar infarct. There is intracranial internal carotid artery and vertebral artery atherosclerosis. Skull and face: Calvarium and visualized facial bones appear intact, without suspicious lesions. Sinuses: Visualized sinuses and mastoids are clear. IMPRESSION: No acute intracranial disease process. Findings discussed with Dr. Bartlett on January 14, 2021 at 9:01 a.m. This study fulfills neurological imaging criteria for inclusion or exclusion of acute stroke therapies based on available published neurological guidelines. Dictated by: Diane Crawford MD, PhD on 01/14/2021 at 8:59 Approved by: Diane Crawford MD, PhD on 01/14/2021 at 9:03
--- NOTE | 2021-01-14 | DI.CT.S_ITS ---
PROCEDURE: CT ANGIO HEAD AND NECK INDICATIONS: STROKE TECHNIQUE: After the administration of intravenous contrast, 1 mm thick sections acquired from the aortic arch through the Quinn of [place]. Post-contrast 4.5 mm thick sections then re-acquired from the foramen magnum to the vertex. 3-dimensional vqqkuiy-aiykeaayo-gpbkslrdhi (MIP) and/or volume rendering reformats were acquired of the central intracranial vasculature and neck separately. COMPARISON: [facility], CT, CT STROKE, 01/14/2021, 8:42. [facility], CT, CT ANGIO HEAD AND NECK, 07/16/2020, 17:38. FINDINGS: BRAIN: CSF spaces: Ventricles are grossly unremarkable. Basal cisterns are patent. No extra-axial fluid collections. Brain: No midline shift. No intracranial bleeds or masses. Luciano-white matter interface appears intact. Skull and face: Calvarium and facial bones appear intact, without suspicious lesions. Orbits appear normal. There is cervical spine fixation hardware. Sinuses: Sinuses and mastoids are clear. HEAD CT ANGIOGRAPHY: Anterior circulation: Intracranial internal carotid arteries (ICA): Patent. Anterior cerebral arteries (GENESIS): Patent. Middle cerebral arteries (MCA): Patent. No aneurysms are seen. Posterior circulation: origin of the right LARD RENDERER. Visualized portions of the vertebral arteries: Dominant appearance of the left vertebral artery none 2 Basilar artery: Patent. Posterior cerebral arteries (LARD RENDERER): Patent. No aneurysms are seen. NECK CT ANGIOGRAPHY: Carotid atherosclerotic findings: Bilateral carotid atherosclerosis, left greater than right.. Common carotid artery (CCA) origins: Patent. Common carotid arteries (CCA): Patent. Internal carotid arteries (ICA): High-grade focal stenosis involving the origin of the left ICA probably 90% Vertebral artery origins: The left vertebral artery origin appears patent. The right vertebral artery origin not well seen secondary to calcification. Extracranial portions of both vertebral arteries: The diffuse atresia of the right vertebral artery and dominant left vertebral artery appearance Basilar artery: Patent. Soft tissues: Visualized neck soft tissues demonstrate no suspicious abnormalities. Bones: No suspicious bony lesions. Cervical spondylosis and facet arthropathy. IMPRESSION: Redemonstrated high-grade focal stenosis at the origin of left ICA probably 90% as before. No hemodynamically significant stenosis seen at the right ICA. No intracranial occlusion or focal stenosis. Bilateral carotid atherosclerosis, left greater than right. Any quantitative measurements of stenosis were performed using NASCET criteria. Dictated by: Zbigniew Duong M.D. on 01/14/2021 at 9:21 Approved by: Zbigniew Duong M.D. on 01/14/2021 at 9:27
--- NOTE | 2021-01-14 08:48 | ED.GENADULT ---
HPI - General Adult General Chief complaint: Neuro Symptoms/Deficit Stated complaint: Stroke Time Seen by Provider: 01/14/21 08:42 History of Present Illness HPI narrative: 85-year-old gentleman presents with concern for acute right hand weakness and increasing unsteadiness onset 815 this morning. She states when he woke up this morning he was in his usual state of health and as he was reaching for a coffee cup he noticed that his right hand was not working well. His and medical records contribute the majority of history. He does have a complex medical history including prior stroke with right-sided symptoms and persistent gait difficulty, recent cardiac event with drug-eluting stent placed in September of this year, autonomic dysfunction and peripheral neuropathy, diabetes, pacemaker placement for sick sinus syndrome. His notes that he is generally unwell but does not note any fevers, cough, her complaints of abdominal pain, dysuria or headache over the last number of days. She states when he woke up this morning he was in his usual state of health and as he was reaching for a coffee cup he noticed that his right hand was not working well Related Data Home Medications Medication Instructions Recorded Confirmed levothyroxine 75 mcg PO QAM 08/27/18 10/06/20 metformin 500 mg PO BID 08/27/18 10/06/20 amiodarone 200 mg tablet 100 mg PO QAM tab 12/24/18 01/14/21 aspirin 81 mg tablet,delayed 81 mg PO QAM 12/24/18 01/14/21 release finasteride 5 mg PO BEDTIME 07/06/20 01/14/21 atorvastatin 20 mg PO QAM 09/23/20 01/14/21 duloxetine 30 mg PO BEDTIME 09/23/20 01/14/21 esomeprazole magnesium 40 mg PO BID 09/23/20 01/14/21 ondansetron HCl 4 mg PO TID PRN 09/23/20 10/06/20 hydrocodone-acetaminophen 1 tab PO Q6H PRN 10/06/20 10/06/20 Previous Rx's Medication Instructions Recorded nitroglycerin 0.4 mg SL Q5-15M PRN #30 tab 06/29/18 magnesium oxide 400 mg PO BID #180 tab 10/08/20 metoprolol succinate 12.5 mg PO BID #180 tab 10/08/20 Allergies Allergy/AdvReac Type Severity Reaction Status Date / Time Kaychxh-Qaz-Lkl Reductase Allergy Intermediate MUSCLE PAIN Verified 01/14/21 10:05 Inhibitor [[id number]-[id number] REDUCTASE INHIBITOR] piroxicam [PIROXICAM] Allergy Mild NAUSEA, Verified 01/14/21 10:05 VOMITING dabigatran etexilate AdvReac Hematuria Verified 01/14/21 10:05 Review of Systems Review of Systems Narrative: Remainder of complete review of systems is otherwise unremarkable except for that included in the HPI. Patient History Medical History Anxiety CAD (coronary artery disease) DDD (degenerative disc disease), cervical Depression Diabetes Dyslipidemia Dysuria Elevated serum homocysteine level History of angina History of CVA (cerebrovascular accident) History of dizziness History of esophageal reflux History of fatigue History of hematuria Impotence Lumbosacral radiculopathy at L5 Memory deficit Neuropathy of both feet Osteoarthritis Pacemaker (~2013) Paroxysmal A-fib 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 RBBB Renal insufficiency Sick sinus syndrome Sleep apnea (~2012) Spinal stenosis in cervical region Spinal stenosis of lumbar region TIA (transient ischemic attack) Urinary retention Surgical History H/O laminectomy H/O shoulder surgery H/O thumb surgery History of appendectomy History of bladder surgery History of cardiac cath (~2012) History of cholecystectomy (~2012) History of cystoscopy History of lumbar fusion History of tonsillectomy History of vasectomy S/P drug eluting coronary stent placement Status post right foot surgery Social History marital status: details: aisha Horner, lives in [place] household members: spouse lives independently: Yes caregiver/support person: No housing: house Smoking Status: Never smoker alcohol intake: current substance use type: does not use Smoking Status: Never smoker alcohol intake frequency: holidays/special occasions only Substance Use Type: does not use Exam Narrative Exam Narrative: General: Pale, globally weak, will respond to direct questions but not carry on a complete conversation HEENT: Moist mucous membranes, normal sclera with reactive pupils, Neck: No JVD, supple Respiratory: Lungs are clear to auscultation, no wheezing no rales no rhonchi. Full and symmetrical air movement Cardiac: Regular rate and rhythm no murmurs no bruits Abdomen: Soft, nontender, good bowel tones, no flank pain Skin: Warm and dry, no rashes Neurologic: Globally weak. Altered mental status with decreased interaction overall, Slightly increased weakness in the right arm compared to left arm. Overall speech is slowed but no obvious dysarthria or word-finding difficulties, perhaps a subtle right facial droop but he is weak enough that he is not responding to questions to smile or move face muscles. He does not note any obvious decreased sensation and does recognize when all 4 limbs are touched. Extremities: No trauma, well perfused Psych: One-word responses with direct questions Initial Vital Signs Initial Vital Signs: Vital Signs Temperature 98.4 F 01/14/21 08:45 Pulse Rate 69 01/14/21 08:45 Respiratory Rate 14 01/14/21 08:45 Blood Pressure 143/63 H 01/14/21 08:45 Pulse Oximetry 99 01/14/21 08:45 Course Orders Ordered: ED Orders 01/14/21 08:50 EKG-12 Lead Routine 01/14/21 08:58 Complete Blood Count AUTO DIFF Stat Comprehensive Metabolic Panel Stat Lactate (Lactic Acid) Stat Lipase Stat Magnesium Stat NT-proBNP (BNP-Adult 18+) Stat Troponin I Stat 01/14/21 09:22 XR chest 1V Stat 01/14/21 09:35 COVID19 - ADMIT (PHOTOGRAMMETRIC ENGINEER swab/PCR) Stat 01/14/21 09:45 Blood Culture Stat 01/14/21 10:00 Urinalysis and Microscopic Stat Vital Signs Vital signs: Vital Signs - 8 hr 01/14/21 08:45 01/14/21 08:56 01/14/21 09:00 Temperature 98.4 F Pulse Rate 69 70 69 Respiratory Rate 14 16 Blood Pressure 143/63 H 143/63 H Pulse Oximetry 99 99 98 01/14/21 09:30 01/14/21 09:39 01/14/21 10:05 Temperature Pulse Rate 69 69 69 Respiratory Rate 14 20 17 Blood Pressure 137/70 Pulse Oximetry 94 96 96 01/14/21 10:23 01/14/21 10:30 01/14/21 11:00 Temperature Pulse Rate 68 68 68 Respiratory Rate 20 18 23 Blood Pressure 133/63 122/71 139/70 Pulse Oximetry 98 98 97 01/14/21 11:30 01/14/21 12:00 Temperature Pulse Rate 69 69 Respiratory Rate 24 18 Blood Pressure 148/81 H 126/75 Pulse Oximetry 96 96 Medical Decision Making Lab Data Lab results reviewed: Yes I reviewed the patient's lab results. Result diagrams: 01/14/21 08:58 01/14/21 08:58 Labs: Lab Results 01/14/21 01/14/21 01/14/21 Range/Units 08:58 08:58 08:58 WBC 6.0 (4.5-11.0) X10^3/uL RBC 3.49 L (4.5-5.9) X10^6/uL Hgb 10.6 L (13.5-17.5) g/dL Hct 32.0 L (41-53) % MCV 91.7 (80-100) fL MCH 30.3 (26-34) PG MCHC 33.1 (30-36) % RDW 15.1 H (11.6-14.8) % Plt Count 239 (150-400) X10^3/uL Neut % (Auto) 66.3 (50-75) % Lymph % (Auto) 22.8 L (25-40) % Russell % (Auto) 9.6 (3-14) % Eos % (Auto) 0.7 L (2-4) % Baso % (Auto) 0.6 (0-2) % Neut # (Auto) 4000 (1890-8023) /uL Lymph # (Auto) 1400 (1503-8935) /uL [place] # (Auto) 600 (0-900) /uL Eos # (Auto) 0 (0-450) /uL Baso # (Auto) 0 (0-100) /uL Sodium 125 L (137-145) mmol/L Potassium 5.1 (3.4-5.1) mmol/L Chloride 95 L (98-107) mmol/L Carbon Dioxide 22 (22-32) mmol/L BUN 21 H (9-20) mg/dL Creatinine 1.51 H (0.66-1.25) mg/dL Estimated GFR 44.1 L (>60) mL/min BUN/Creatinine Ratio 13.9 (6-22) Glucose 220 H (80-110) mg/dL Lactate 3.4 H (0.7-2.1) mmol/L Calcium 9.1 (8.4-10.2) mg/dL Magnesium 1.8 (1.6-2.3) mg/dL Total Bilirubin 0.3 (0.2-1.3) mg/dL AST 45 (17-59) IU/L ALT 19 (<50) IU/L Alkaline Phosphatase 65 (38-126) U/L Troponin I < 0.012 (0.01-0.034) ng/mL NT-Pro-B Natriuret Pep 260 (<450) pg/mL Total Protein 5.7 L (6.3-8.2) g/dL Albumin 3.2 L (3.5-5.0) g/dL Globulin 2.5 (1.7-4.1) g/dL Albumin/Globulin Ratio 1.3 (1.0-2.8) Lipase 130 (23-300) U/L Urine Color Urine Appearance Urine pH (4.5-8.0) Ur Specific [place] (1.000-1.035) Urine Protein (Negative) Urine Glucose (UA) (Negative) g/dL Urine Ketones (NEGATIVE) Urine Occult Blood (Negative) Urine Nitrate (Negative) Urine Bilirubin (NEGATIVE) Urine Urobilinogen (0.2) E.U./dL Ur Leukocyte Esterase (NEGATIVE) Urine RBC (0-5/HPF) Urine WBC (0-5/HPF) Urine Bacteria (None) Ur Culture Indicated? Micro UA Comment SARS-CoV-2 (PCR) (Negative) 01/14/21 01/14/21 Range/Units 09:35 10:00 WBC (4.5-11.0) X10^3/uL RBC (4.5-5.9) X10^6/uL Hgb (13.5-17.5) g/dL Hct (41-53) % MCV (80-100) fL MCH (26-34) PG MCHC (30-36) % RDW (11.6-14.8) % Plt Count (150-400) X10^3/uL Neut % (Auto) (50-75) % Lymph % (Auto) (25-40) % [place] % (Auto) (3-14) % Eos % (Auto) (2-4) % Baso % (Auto) (0-2) % Neut # (Auto) (3591-2449) /uL Lymph # (Auto) (1897-7601) /uL [place] # (Auto) (0-900) /uL Eos # (Auto) (0-450) /uL Baso # (Auto) (0-100) /uL Sodium (137-145) mmol/L Potassium (3.4-5.1) mmol/L Chloride (98-107) mmol/L Carbon Dioxide (22-32) mmol/L BUN (9-20) mg/dL Creatinine (0.66-1.25) mg/dL Estimated GFR (>60) mL/min BUN/Creatinine Ratio (6-22) Glucose (80-110) mg/dL Lactate (0.7-2.1) mmol/L Calcium (8.4-10.2) mg/dL Magnesium (1.6-2.3) mg/dL Total Bilirubin (0.2-1.3) mg/dL AST (17-59) IU/L ALT (<50) IU/L Alkaline Phosphatase (38-126) U/L Troponin I (0.01-0.034) ng/mL NT-Pro-B Natriuret Pep (<450) pg/mL Total Protein (6.3-8.2) g/dL Albumin (3.5-5.0) g/dL Globulin (1.7-4.1) g/dL Albumin/Globulin Ratio (1.0-2.8) Lipase (23-300) U/L Urine Color Yellow Urine Appearance Clear Urine pH 6.5 (4.5-8.0) Ur Specific [place] 1.010 (1.000-1.035) Urine Protein Negative (Negative) Urine Glucose (UA) 1+ H (Negative) g/dL Urine Ketones Negative (NEGATIVE) Urine Occult Blood Negative (Negative) Urine Nitrate Negative (Negative) Urine Bilirubin Negative (NEGATIVE) Urine Urobilinogen 0.2 (0.2) E.U./dL Ur Leukocyte Esterase Negative (NEGATIVE) Urine RBC None seen (0-5/HPF) Urine WBC None seen (0-5/HPF) Urine Bacteria None seen (None) Ur Culture Indicated? Cult not indicated Micro UA Comment Microscopic normal SARS-CoV-2 (PCR) Negative (Negative) Point of Care Testing Glucose POC 174 Point of care testing: Point of Care Testing Glucose POC 174 MDM Narrative Medical decision making narrative: 85-year-old gentleman presents initially is a code stroke with concerns for right arm weakness however on more further evaluation he has total body weakness and stroke as far less likely. As labs are returning he is noted to be significantly hyponatremic slightly dehydrated with a bump in his creatinine, and poorly perfused with a lactic acid at 3.4. He has no outward evidence of obvious infection and does not report fevers, cough, abdominal pain or dysuria. Urine does not appear to be infected, chest x-ray shows no acute pulmonary process, CT angio of the head does not suggest acute bleeding or intracranial abnormalities. He is COVID negative. At this point global weakness, hyponatremia, dehydration with acute kidney injury and hypoperfusion secondary to dehydration is the best explanation to explain the slightly elevated lactic acid. There is no suggestion of infection to suggest sepsis. With his overall global weakness I suspect that he has not had a repeat TIA or stroke and that the weakness is noticing in the right upper extremity is a side effect from prior stroke. Will continue with rehydration and plan on hospital admission for additional workup and evaluation. Care is reveiwed with Dr Mccartney, who will admit. Discharge Plan Departure Patient Disposition: Admitted As Inpatient Clinical Impression: Hyponatremia, Weakness Admit Date/Time: 01/14/21 12:33 Admit Provider: Tyrone Mccartney
--- NOTE | 2021-01-14 09:22 | DI.RAD.S_ITS ---
PROCEDURE: XR CHEST 1V INDICATIONS: acute weakness TECHNIQUE: One view of the chest was acquired. COMPARISON: [facility], CT, CT ANGIO HEAD AND NECK, 01/14/2021, 8:49. [facility], CR, XR CHEST 1V, 10/06/2020, 12:52. FINDINGS: Surgical changes and devices: Pacemaker. Lungs and pleura: Lungs are clear. No pleural effusions or pneumothorax. Mediastinum: Mediastinal contours appear normal. Heart size is mildly prominent. Bones and chest wall: No suspicious bony lesions. Overlying soft tissues appear unremarkable. IMPRESSION: No acute pulmonary process. Dictated by: Carlyn Abbott M.D. on 01/14/2021 at 8:39 Approved by: Carlyn Abbott M.D. on 01/14/2021 at 8:48
[2021-01-14 09:29] LABS: Add Manual Diff / Slide Review NO; Basophils Absolute Auto 0 /uL (0-100); Basophils Percent Auto 0.6 % (0-2); Eosinophils Absolute Auto 0 /uL (0-450); Eosinophils Percent Auto 0.7 % (2-4); Hemoglobin 10.6 g/dL (13.5-17.5); Lymphocytes Absolute Auto 1400 /uL (1100-4500); Lymphocytes Percent Auto 22.8 % (25-40); Mean Corpuscular HGB Conc 33.1 % (30-36); Mean Corpuscular Hemoglobin 30.3 PG (26-34); Mean Corpuscular Volume 91.7 fL (80-100); Monocytes Absolute Auto 600 /uL (0-900); Monocytes Percent Auto 9.6 % (3-14); Neutrophils Absolute Auto 4000 /uL (1500-7000); Neutrophils Percent Auto 66.3 % (50-75); Platelet Count 239 X10^3/uL (150-400); Red Blood Cell Count 3.49 X10^6/uL (4.5-5.9); Red Cell Distribution Width 15.1 % (11.6-14.8)
[2021-01-14 09:36] LABS: Alanine Aminotransferase 19 IU/L (<50); Albumin 3.2 g/dL (3.5-5.0); Albumin Globulin Ratio 1.3 (1.0-2.8); Alkaline Phosphatase 65 U/L (38-126); Aspartate Aminotransferase 45 IU/L (17-59); BUN Creatinine Ratio 13.9 (6-22); Bilirubin Total 0.3 mg/dL (0.2-1.3); Blood Urea Nitrogen 21 mg/dL (9-20); Calcium 9.1 mg/dL (8.4-10.2); Carbon Dioxide 22 mmol/L (22-32); Chloride 95 mmol/L (98-107); Estimated Glomerular Filt Rate 44.1 mL/min (>60); Globulin 2.5 g/dL (1.7-4.1); Glucose 220 mg/dL (80-110); HEMOLYSIS < 15 (0-50); Lipase 130 U/L (23-300); Magnesium 1.8 mg/dL (1.6-2.3); Potassium 5.1 mmol/L (3.4-5.1); Sodium 125 mmol/L (137-145); Total Protein 5.7 g/dL (6.3-8.2)
[2021-01-14 09:38] LABS: Lactate (Lactic Acid) 3.4 mmol/L (0.7-2.1)
[2021-01-14 09:48] LABS: NT-proBNP (BNP-Adult 18+) 260 pg/mL (<450); Troponin I < 0.012 ng/mL (0.01-0.034)
[2021-01-14 10:07] LABS: Bacteria Urine None Seen; RBC Urine None Seen (0-5/HPF); WBC Urine None Seen (0-5/HPF)
[2021-01-14 10:08] LABS: Appearance Urine UA CLEAR; Bilirubin Urine UA NEGATIVE (NEGATIVE); Color Urine UA YELLOW; Glucose Urine UA 1+ g/dL (Negative); Ketones Urine UA NEGATIVE (NEGATIVE); Leukocyte Esterase Urine UA NEGATIVE (NEGATIVE); Nitrite Urine UA NEGATIVE (Negative); Occult Blood Urine UA NEGATIVE (Negative); Protein Urine UA NEGATIVE (Negative); Urobilinogen Urine UA 0.2 E.U./dL (0.2); pH Urine UA 6.5 (4.5-8.0)
[2021-01-14 10:15] LABS: Culture Indicated Urine Cult Not Indicated; Urine Comments Microscopic Normal
[2021-01-14 10:31] LABS: COVID19 - ADMIT (NP swab/PCR) Negative (Negative)
[2021-01-14 11:26] LABS: Reflexed Lactate in 2 Hours Y
--- NOTE | 2021-01-14 12:53 | PM.HP.1 ---
History of Present Illness History of Present Illness Date Patient Seen: 01/14/21 Time Patient Seen: 12:31 Date of Onset of Symptoms: 01/14/21 Chief complaint: Stroke Narrative: Pt this morning awoke in usual state of health, then at 815 noticed while reaching for coffee cup that his R side did not seem to be working correctly. EMS was summoned and he was brought to the ED as a code stroke. Per he has a hx of previous stroke and usually ambulates with walker at home. R sided weakness seemed to resolve however pt was poorly oriented and confused in ED and was found to be hyponatremic and hypochloremic. Orientation much improved by time of admission but not fully to baseline per . does note that she has been making sure he drinks a lot lately, particularly some type of 'dehydrated water' hydration supplement regarding which patient appears to have suitably low opinion. Of note cardiac stent placed 5 months ago. Patient History Medical History Anxiety CAD (coronary artery disease) DDD (degenerative disc disease), cervical Depression Diabetes Dyslipidemia Dysuria Elevated serum homocysteine level History of angina History of CVA (cerebrovascular accident) History of dizziness History of esophageal reflux History of fatigue History of hematuria Impotence Lumbosacral radiculopathy at L5 Memory deficit Neuropathy of both feet Osteoarthritis Pacemaker (~2013) Paroxysmal A-fib 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 RBBB Renal insufficiency Sick sinus syndrome Sleep apnea (~2012) Spinal stenosis in cervical region Spinal stenosis of lumbar region TIA (transient ischemic attack) Urinary retention Surgical History H/O laminectomy H/O shoulder surgery H/O thumb surgery History of appendectomy History of bladder surgery History of cardiac cath (~2012) History of cholecystectomy (~2012) History of cystoscopy History of lumbar fusion History of tonsillectomy History of vasectomy S/P drug eluting coronary stent placement Status post right foot surgery Family & Social History Social History: household members spouse lives independently Yes caregiver/support person No Safety & Behavioral: Feels Safe in Current Yes Environment Been Physically Hurt or No Threatened By a Person Tobacco & Substance use: Smoking Status Never smoker alcohol intake current alcohol intake frequency holiday/special occasion Substance Use Type does not use Meds Home Medications and Allergies Home Medications Medication Instructions Recorded Confirmed Type nitroglycerin 0.4 mg SL Q5-15M PRN #30 tab 06/29/18 01/14/21 Rx levothyroxine 75 mcg PO QAM 08/27/18 01/14/21 History metformin 500 mg PO BID 08/27/18 01/14/21 History amiodarone 200 mg tablet 100 mg PO QAM tab 12/24/18 01/14/21 History aspirin 81 mg tablet,delayed 81 mg PO QAM 12/24/18 01/14/21 History release finasteride 5 mg PO BEDTIME 07/06/20 01/14/21 History atorvastatin 20 mg PO QAM 09/23/20 01/14/21 History duloxetine 30 mg PO BEDTIME 09/23/20 01/14/21 History esomeprazole magnesium 40 mg PO BID 09/23/20 01/14/21 History ondansetron HCl 4 mg PO TID PRN 09/23/20 01/14/21 History hydrocodone-acetaminophen 1 tab PO Q6H PRN 10/06/20 01/14/21 History magnesium oxide 400 mg PO BID #180 tab 10/08/20 01/14/21 Rx metoprolol succinate 12.5 mg PO BID #180 tab 10/08/20 01/14/21 Rx clopidogrel [Plavix] 75 mg PO DAILY 01/14/21 01/14/21 History glipizide 2.5 mg PO DAILY 01/14/21 01/14/21 History wbgyuctryzxj-vnxoawlt-awwmco 1 tab PO DAILY 01/14/21 01/14/21 History [Centrum Silver] Allergies Allergy/AdvReac Type Severity Reaction Status Date / Time Cxltlaw-Ewu-Uue Reductase Allergy Intermediate MUSCLE PAIN Verified 01/14/21 10:05 Inhibitor [DPBRIHZ-QCH-BAZ REDUCTASE INHIBITOR] piroxicam [PIROXICAM] Allergy Mild NAUSEA, Verified 01/14/21 10:05 VOMITING dabigatran etexilate AdvReac Hematuria Verified 01/14/21 10:05 Review of Systems Review of Systems ROS: Yes All systems reviewed with the patient and are negative except as otherwise documented Exam Vital Signs (past 8 hours): - 01/14/21 08:45 01/14/21 08:56 01/14/21 09:00 Temperature 98.4 F Pulse Rate 69 70 69 Respiratory Rate 14 16 Blood Pressure 143/63 H 143/63 H Pulse Oximetry 99 99 98 01/14/21 09:30 01/14/21 09:39 01/14/21 10:05 Temperature Pulse Rate 69 69 69 Respiratory Rate 14 20 17 Blood Pressure 137/70 Pulse Oximetry 94 96 96 01/14/21 10:23 01/14/21 10:30 01/14/21 11:00 Temperature Pulse Rate 68 68 68 Respiratory Rate 20 18 23 Blood Pressure 133/63 122/71 139/70 Pulse Oximetry 98 98 97 01/14/21 11:30 01/14/21 12:00 Temperature Pulse Rate 69 69 Respiratory Rate 24 18 Blood Pressure 148/81 H 126/75 Pulse Oximetry 96 96 Oxygen Delivery Method Room Air Narrative Exam Narrative: elder resting in bed conversing with Const General: cooperative, healthy appearing and comfortable Orientation: alert, awake, oriented to person and oriented to place Other: oriented to president and building. Has some trouble accurately stating year. HENMT Head: normal to inspection, normocephalic and atraumatic Eyes General: appearance normal, both eyes and all related structures Visual Hall: normal visual hall by confrontation Neck Neck: normal visual inspection Resp Effort & Inspection: normal respiratory effort and able to speak in complete sentences Auscultation: clear to auscultation bilaterally Cardio Rate: regular rate Rhythm: regular rhythm Heart Sounds: S1 normal and S2 normal GI Inspection: normal to inspection Palpation: soft Percussion: normal to percussion Auscultation: normal bowel sounds Neuro General: moves all extremities, no focal motor deficits, CN's II-XI intact bilaterally and deep tendon reflexes 2+ bilaterally Cognition: abnormal cognition Speech: abnormal speech Motor: strength 5/5 throughout (strength 5/5 in R hand jalousie installer however subtly less than L, pt is RHD.) and other (hands comparably dextrous) Sensory Exam: no sensory deficits noted DTR's: Rt Patellar: 2+ and Lt Patellar: 2+ Psych Appearance: grossly normal Objective Labs Result Diagrams: 01/14/21 08:58 01/14/21 08:58 Labs: Laboratory Results - last 24 hr 01/14/21 01/14/21 01/14/21 08:58 08:58 08:58 WBC 6.0 RBC 3.49 L Hgb 10.6 L Hct 32.0 L MCV 91.7 MCH 30.3 MCHC 33.1 RDW 15.1 H Plt Count 239 Neut % (Auto) 66.3 Lymph % (Auto) 22.8 L [place] % (Auto) 9.6 Eos % (Auto) 0.7 L Baso % (Auto) 0.6 Neut # (Auto) 4000 Lymph # (Auto) 1400 [place] # (Auto) 600 Eos # (Auto) 0 Baso # (Auto) 0 Sodium 125 L Potassium 5.1 Chloride 95 L Carbon Dioxide 22 BUN 21 H Creatinine 1.51 H Estimated GFR 44.1 L BUN/Creatinine Ratio 13.9 Glucose 220 H Lactate 3.4 H Calcium 9.1 Magnesium 1.8 Total Bilirubin 0.3 AST 45 ALT 19 Alkaline Phosphatase 65 Troponin I < 0.012 NT-Pro-B Natriuret Pep 260 Total Protein 5.7 L Albumin 3.2 L Globulin 2.5 Albumin/Globulin Ratio 1.3 Lipase 130 Urine Color Urine Appearance Urine pH Ur Specific [place] Urine Protein Urine Glucose (UA) Urine Ketones Urine Occult Blood Urine Nitrate Urine Bilirubin Urine Urobilinogen Ur Leukocyte Esterase Urine RBC Urine WBC Urine Bacteria Ur Culture Indicated? Micro UA Comment SARS-CoV-2 (PCR) 01/14/21 01/14/21 09:35 10:00 WBC RBC Hgb Hct MCV MCH MCHC RDW Plt Count Neut % (Auto) Lymph % (Auto) [place] % (Auto) Eos % (Auto) Baso % (Auto) Neut # (Auto) Lymph # (Auto) [place] # (Auto) Eos # (Auto) Baso # (Auto) Sodium Potassium Chloride Carbon Dioxide BUN Creatinine Estimated GFR BUN/Creatinine Ratio Glucose Lactate Calcium Magnesium Total Bilirubin AST ALT Alkaline Phosphatase Troponin I NT-Pro-B Natriuret Pep Total Protein Albumin Globulin Albumin/Globulin Ratio Lipase Urine Color Yellow Urine Appearance Clear Urine pH 6.5 Ur Specific [place] 1.010 Urine Protein Negative Urine Glucose (UA) 1+ H Urine Ketones Negative Urine Occult Blood Negative Urine Nitrate Negative Urine Bilirubin Negative Urine Urobilinogen 0.2 Ur Leukocyte Esterase Negative Urine RBC None seen Urine WBC None seen Urine Bacteria None seen Ur Culture Indicated? Cult not indicated Micro UA Comment Microscopic normal SARS-CoV-2 (PCR) Negative Assessment & Plan Assessment & Plan narrative: #TIA/CVA CTA brain wnl, pt unable to get MRI due to pacemaker. Symptoms of R sided weakness seem to be resolved/ing. continue statin and ASA 81, increased statin to 40mg. PT/OT consult. #hyponatremia #hypochloremia present on admission, mild, urine not concentrated fluid restriction, trend labs, encourage eating, f/u with am BMP. #elevated lactic acid to 3.*, no other signs of infectious process or sepsis, likely 2/2 retention due to... #acute renal failure Increase in Cr to 1.5 from prior baseline 1.2ish in setting of hyponatremia. Etiology unclear, trend and avoid nephrotoxics. #DM2 with hyperglycemia hold home metformin continue glipizide, diabetic diet, SSI and fingersticks ACHS #CAD s/p stent #pacemaker in place stable, continue plavix, asa 81, lipitor, metoprolol, prn nitrostat #hypothyroid continue home synthroid 75 #BPH continue home finasteride #MDD stable levels of irascibility, continue home duloxetine #GERD stable, ppi #afib continue home amiodarone #hx of hypomagesemia continue home mag supplements dispo: admit obs, continue home meds code:full dvt ppc: SCDs diet: carb controlled
[2021-01-14] MEDS: SODIUM CHLORIDE 0.9% 1,000 ML 42 ML IV (13:20)
--- NOTE | 2021-01-14 14:17 | PC.NURSE ---
Admit Note Pt arrived to room 227 from ER at 1250. Transferred to bed via slider board. Pt reports usually uses [facility] at home. 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 unable to accurately state how many daughters he has). is at bedside and admission assessment completed with her assistance. Pt hand hosiery pairer are strong and equal although pt reports right hand still feels funny. No other neuro deficits noted. On telemetry, V paced. Denies pain. Oriented to room and to call light/bed/tv controls. Bed alarm on for safety. Clothing with pt and ring present to left hand. Top and bottom dentures in place. Wears hearing aids at home but hearing aids not with pt at this time.
[2021-01-14 15:01] LABS: Lactate 2HR (Lactic Acid Rflx) 2.4 mmol/L (0.7-2.1)
--- NOTE | 2021-01-14 15:10 | PT.IIE ---
Surgical History (Last Reviewed 01/14/21 @ 12:56 by Tyrone Mccartney MD) H/O laminectomy H/O shoulder surgery H/O thumb surgery History of appendectomy History of bladder surgery History of cardiac cath (~2012) History of cholecystectomy (~2012) History of cystoscopy History of lumbar fusion History of tonsillectomy History of vasectomy S/P drug eluting coronary stent placement Status post right foot surgery Medical History (Last Reviewed 01/14/21 @ 12:56 by Tyrone Mccartney MD) Anxiety CAD (coronary artery disease) DDD (degenerative disc disease), cervical Depression Diabetes Dyslipidemia Dysuria Elevated serum homocysteine level History of angina History of CVA (cerebrovascular accident) History of dizziness History of esophageal reflux History of fatigue History of hematuria Impotence Lumbosacral radiculopathy at L5 Memory deficit Neuropathy of both feet Osteoarthritis Pacemaker (~2013) Paroxysmal A-fib 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 RBBB Renal insufficiency Sick sinus syndrome Sleep apnea (~2012) Spinal stenosis in cervical region Spinal stenosis of lumbar region TIA (transient ischemic attack) Urinary retention Physical Therapy Inpatient Evaluation/Re-Eval M1 PT/OT-IP Prior Functional Status Start: 01/14/21 16:39 Freq: NEEDED Status: Active Protocol: Document 01/14/21 15:10 AB (Rec: 01/14/21 16:49 AB [id number]) Medical Review Prior Functional Status Medical History Reviewed Yes Communication able to make needs known Mobility and Gait spouse stated that pt needs SBA with mobility and uses a FWW indoor and uses w/c for outdoor mobility due to pt unable to tolerate much ambulation. Activities of Daily Living and IADL's spouse stated that she assists pt with dressing and provides SBA with other ADLs Social History Household Members spouse Living Arrangements House Number of Floors (Floors) One Floor Number of Stairs To Enter/Railing? no stairs to enter Home Environment Standard Height Toilet,Walk in Shower Home Equipment Front Wheel Walker,Manual Wheelchair,Shower Seat without Backrest,Hand Held Shower, Grab Bars In Shower M2 PT-IP Current Condition Start: 01/14/21 16:39 Freq: NEEDED Status: Active Protocol: Document 01/14/21 15:10 AB (Rec: 01/14/21 16:49 AB [id number]) Physical Therapy Current Condition Current Condition Evaluation Date 01/14/21 Treatment Diagnosis hyponatremia; weakness Onset Date 01/14/21 M3 PT-IP Subjective Start: 01/14/21 16:39 Freq: NEEDED Status: Active Protocol: Document 01/14/21 15:10 AB (Rec: 01/14/21 16:49 AB [id number]) Subjective Physical Therapy Visit Type Type Initial Evaluation Visit Start Time 15:10 Visit Stop Time 15:50 Total Visit Minutes 40 Number of COLLAR WORKER Visits 0 Physical Therapy Visit Comments Patient Comments i am tired Therapy Pain Assessment Pain Present Pain Present Denied Pain M4 PT-IP Mobility and Gait Start: 01/14/21 16:39 Freq: NEEDED Status: Active Protocol: Document 01/14/21 15:10 AB (Rec: 01/14/21 16:49 AB [id number]) PT-Bed Mobility Assessment Supine to Sit Supine to Sit Minimal Assistance Sit to Supine Sit to Supine Standby Assistance PT-Transfer Assessment Sit to and From Stand Sit to and from Stand Contact Guard Assistance, Minimal Assistance,1 Person Assistance,Use of Upper Extremities Equipment Transfer Assistive Device Gait Belt,Front Wheeled Walker Orthotic/Prosthetic Devices or Brace: No Transfers Transfer Destination Toilet Transfer Technique ambulated using FWW Transfer Ability Level of Assist Contact Guard Assistance, Minimal Assistance,1 Person Assistance,Use of Upper Extremities Comments Mobility Comments spouse in room with pt. pt stated that he is tired but agreed to do PT. stated that R hand numbness is gone. completed supine to sit min A with increase difficulty completing tasks and requires a few attempts to complete. completed sit to stand CGA to min A and ambulated a few feet CGA to min A but requested to use the toilet and ambulated to the toilet using FWW. pt can be impulsive and pushes FWW too far forward and cued for safety. pt required CGA to maintain standing balance using FWW for support while doing toileting. pt stated that he just wants to go back to bed and ambulated to the bed using fWW CGA to min A. completed sit to supine SBA. positioned in bed. call light and table placed within reach . Gait Assessment Gait Gait Assistance Required: Contact Guard Assist,Minimum Assistance Distance (Feet) 10 Able to Maintain Weight Bearing Status Yes During Gait Assistive Devices Assistive Device Gait Belt,Front Wheeled Walker Orthotic/Prosthetic Devices or Brace: No Gait Deviations General Gait Pattern Antalgic,Decreased Stride Length,Decreased Feet Clearance,Wide Based Gait Factors Limiting Gait Function Factors Limiting Gait Function Decreased Activity Tolerance, Decreased Strength,Poor Balance,Poor Safety Awareness PT-Balance Assessment Sitting Balance and Reactions Static Sitting Balance Ability Good Dynamic Sitting Balance Ability Good Standing Balance and Reactions Static Standing Balance Ability Fair Dynamic Standing Balance Ability Fair Device Used FWW M5 PT-IP Objective Assessments Start: 01/14/21 16:39 Freq: NEEDED Status: Active Protocol: Document 01/14/21 15:10 AB (Rec: 01/14/21 16:49 AB [id number]) Orientation Orientation/Cognition Level of Alertness Alert Orientation Name,Place,Situation Language Function Ability Hard of Hearing Safety Awareness Decreased Safety Awareness Gross Range of Motion Lower Extremity ROM Assessment Within Functional Limits Strength Lower Extremity Strength Assessment Within Functional Limits Muscle Tone Muscle Tone WNL Yes M6 PT-IP Treatment Start: 01/14/21 16:39 Freq: NEEDED Status: Active Protocol: Document 01/14/21 15:10 AB (Rec: 01/14/21 16:49 AB [id number]) Physical Therapy Treatment Education Education Provided Safety M7 PT-IP Assessment and Plan Start: 01/14/21 16:39 Freq: NEEDED Status: Active Protocol: Document 01/14/21 15:10 AB (Rec: 01/14/21 16:49 AB [id number]) PT Summary Assessment and Plan Potential Rehabilitation Potential Good Status of Condition at Evaluation Stable Summary Impairments Pain,ROM,Strength,Balance, Coordination,Sensation, Cognition,Bed Mobility, Transfers,Gait,Activity Tolerance Assessment Summary pt requiring CGA to min A with mobility using FWW. Spouse has been assisting pt as needed but stated that pt has been doing well until today and was only needing SBA for ambulation using FWW. pt plans to go home and spouse to assist as needed. will continue to assess progress. Goals Bed Mobility Goal Standby Assistance Transfer Goal Standby Assistance,Front Wheeled Walker Gait Goal Standby Assistance,Front Wheel Walker Gait Distance 100 Days to Meet Goals 5 Frequency of Treatment Frequency Of Treatment Once a Day Treatment Plan Physical Therapy Treatment Plan Bed Mobility Training,Transfer Training,Gait Training, Therapeutic Exercise,Balance Retraining,Discharge Planning, Hot or Cold Pack,Neuromuscular Re-ed,Coordination Retraining Recommendations To Nursing Amount of Assist Needed 1 Person Assist Discharge Recommendations PT Discharge Recommendations Home with Assistance, Outpatient PT Transportation Needs at Discharge Private Vehicle
--- NOTE | 2021-01-14 19:17 | DI.CT.S_ITS ---
PROCEDURE: CT ANGIO HEAD AND NECK INDICATIONS: code stroke TECHNIQUE: After the administration of intravenous contrast, 1 mm thick sections acquired from the aortic arch through the [place]. Post-contrast 4.5 mm thick sections then re-acquired from the foramen magnum to the vertex. 3-dimensional ygdxbho-tdnifoikr-rbpkjlqgzk (MIP) and/or volume rendering reformats were acquired of the central intracranial vasculature and neck separately. COMPARISON: [facility], CT, CT ANGIO HEAD AND NECK, 01/14/2021, 8:49. [facility], CT, CT ANGIO HEAD AND NECK, 07/16/2020, 17:38. FINDINGS: Image quality: Excellent. BRAIN: CSF spaces: Ventricles are symmetric in size and shape. Basal cisterns are patent. No extra-axial fluid collections. Brain: No midline shift. No acute intracranial hemorrhage. Chronic cerebral volume loss and microvascular ischemic changes again noted. Old lacunar infarcts are seen in the left basal ganglia and right caudate head. Skull and face: Calvarium and facial bones appear intact, without suspicious lesions. Orbits appear normal. Sinuses: Sinuses and mastoids are clear. HEAD CT ANGIOGRAPHY: Anterior circulation: Intracranial internal carotid arteries demonstrate minimal atherosclerotic calcifications without hemodynamically significant stenosis. The flow within the paired anterior cerebral arteries is normal and symmetric. The flow within the middle cerebral arteries is normal and symmetric. The anterior communicating artery is seen. No aneurysms are seen. Posterior circulation: A dominant left vertebral artery is again seen. The vertebral arteries are patent and join to form a normal appearing basilar artery. A type origin of the right SENIOR ANALYSIS SPECIALIST is again seen, a normal variant. Flow within the posterior cerebral arteries is normal and symmetric. No aneurysms are seen. NECK CT ANGIOGRAPHY: Carotid system: The great vessels demonstrate a common origin of the brachiocephalic and left common carotid arteries, a normal variant. The origins of the common carotid arteries appear patent. The common carotid arteries demonstrate normal caliber and courses. The right carotid bifurcation demonstrates mild calcified atherosclerotic plaque without hemodynamically significant stenosis. The left carotid bifurcation demonstrates calcified and noncalcified atherosclerotic plaque with severe narrowing measuring approximately 90% at the origin of the left internal carotid artery. The internal carotid arteries otherwise demonstrate normal calibers and courses. Posterior circulation: A dominant left vertebral artery is noted. The origins of the vertebral arteries both appear patent. The more superior extracranial portions of both vertebral arteries also demonstrate normal courses and calibers. They join to form a normal appearing basilar artery. Soft tissues: Visualized neck soft tissues demonstrate no suspicious abnormalities. A cardiac pacemaker is partially seen with pulse generator in the left chest. Bones: No suspicious bony lesions. Multilevel degenerative changes are seen in the spine. Anterior fusion hardware is seen in the cervical spine at the C5 through C7 levels.. IMPRESSION: 1. High-grade focal stenosis redemonstrated the origin of the left internal carotid artery, estimated 90%, secondary to calcified atherosclerotic plaque, which is unchanged when compared to the exam from earlier the same day. 2. No hemodynamically significant intracranial stenosis or acute occlusion. Any quantitative measurements of stenosis were performed using NASCET criteria. Dictated by: Johnnie Snyder M.D. on 01/14/2021 at 20:09 Approved by: Johnnie Snyder M.D. on 01/14/2021 at 20:21
--- NOTE | 2021-01-14 19:17 | DI.CT.S_ITS ---
PROCEDURE: CT STROKE INDICATIONS: code stroke TECHNIQUE: Noncontrast 4.5 mm thick angled axial sections acquired from the foramen magnum to the vertex, with coronal reformats. For radiation dose reduction, the following was used: automated exposure control, adjustment of mA and/or kV according to patient size. COMPARISON: [facility], CT, CT STROKE, 01/14/2021, 8:42. FINDINGS: Image quality: Excellent. CSF spaces: Basal cisterns are patent. No extra-axial fluid collections. The ventricles are symmetric in size and shape. Brain: No acute intracranial hemorrhage or mass effect. There is cerebral volume loss for age, with resultant ventricular and sulcal prominence. There are periventricular and deep white matter chronic small vessel ischemic changes. A chronic lacunar infarct is seen in the left basal ganglia. A small chronic lacunar infarct is seen in the right caudate head. There is intracranial internal carotid artery atherosclerosis. Skull and face: Calvarium and visualized facial bones appear intact, without suspicious lesions. Sinuses: Visualized sinuses and mastoids are clear. IMPRESSION: No acute intracranial abnormality. No significant interval change when compared to the CT head performed earlier the same day. Findings were discussed with Deshaun BARNES on 01/14/2021 at 7:49 PM. This study fulfills neurological imaging criteria for inclusion or exclusion of acute stroke therapies based on available published neurological guidelines. Dictated by: Johnnie Snyder M.D. on 01/14/2021 at 19:41 Approved by: Johnnie Snyder M.D. on 01/14/2021 at 19:49
--- NOTE | 2021-01-14 19:23 | PC.NURSE ---
Addendum entered by Patricia Walker R.N. 01/14/21 22:11: Pt returned from CT. See paper code stroke and paper NIH scale for details. Provider arrived. TeleStroke initiated. See provider's documentation for details. TPA given per nov. Transport arranged and pt transferred off unit in stable condition. Report given to Tonja at [facility]. Original Note: Assumed care of pt at 1500. Pt resting in bed. NIH 0. Denies pain. Supportive arrived. Ate most of dinner. Up to bathroom at 1900. Steady on feet. Once back in bed at approx 1910 reported pt is confused. Upon assessment disoriented to place and date/time. Delayed responses. Unable to follow directions. Code stroke called. Pt off to CT. Provider notified of code.
--- NOTE | 2021-01-14 19:24 | PM.CN ---
History of Present Illness Consult details Date Patient Seen: 01/14/21 Time Patient Seen: 19:10 Chief complaint: Stroke Reason for consult: Code stroke Requesting provider: Tyrone Mccartney Narrative: Mr. Sotero Kasper is an 85-year-old male with a past medical history significant for prior CVA (2019), CAD, angina, pacemaker for sick sinus syndrome, placement of Watchman device, diabetes type 2 with neuropathy, renal insufficiency, cervical and lumbar stenosis who was admitted to the hospital to Dr. Mccartney for TIA. Per the patient's he awoke this morning in his usual state health. At approximately 8:00 a.m. he experienced and onset of right arm weakness and ?not working right? as well as confusion. The patient's symptoms were improving and upon admission head return to baseline with an NIH score of 0. Was called to bedside for a code stroke with an acute alteration mentation at 7:05 p.m.. Per staff the patient had been on the commode for an extended period of time and straining to have bowel movement. The patient became suddenly acutely altered. He remained awake however presents with marked expressive/receptive aphasia with inability to speak. He could not follow commands. He could lift his left arm, right arm which of to quickly to bed and he could not lift either leg from the bed. Initial NIH scoring is 26. Blood pressure is 162/80. Fingerstick blood sugar is 162. The patient is taken to CT scan emergently for CT stroke protocol and CT angiogram. Upon return the patient is now verbalizing when asked if he knew where he was he states ?I am here?. On re-evaluation the patient has an NIH score of 11. Repeat labs including CBC, coags and chemistries are obtained. Twelve lead EKG reveals paced rhythm. Received call from radiology at 7:[address] reading finding in unsteady changed examination from earlier in the day and no evidence of hemorrhage. Spoke with Dr. Mccartney via phone at 7:50 p.m. to discussed patient's presentation and plan of care. Tele Stroke Neurology is contacted 1954, received call Back med 2012 presenting patient case. Tele neuro robot is brought to the room with video examination commencing at 8:18 p.m.. The patient denies acute complaints of pain or headache but continues to have expressive and or of receptive aphasia and manifests perseveration. Review the patient's presentation plan of care bedside with Dr. Mccartney who managed care henceforth. Meds Home Medications and Allergies Home Medications Medication Instructions Recorded Confirmed Type nitroglycerin 0.4 mg SL Q5-15M PRN #30 tab 06/29/18 01/14/21 Rx levothyroxine 75 mcg PO QAM 08/27/18 01/14/21 History metformin 500 mg PO BID 08/27/18 01/14/21 History amiodarone 200 mg tablet 100 mg PO QAM tab 12/24/18 01/14/21 History aspirin 81 mg tablet,delayed 81 mg PO QAM 12/24/18 01/14/21 History release finasteride 5 mg PO BEDTIME 07/06/20 01/14/21 History atorvastatin 20 mg PO QAM 09/23/20 01/14/21 History duloxetine 30 mg PO BEDTIME 09/23/20 01/14/21 History esomeprazole magnesium 40 mg PO BID 09/23/20 01/14/21 History ondansetron HCl 4 mg PO TID PRN 09/23/20 01/14/21 History hydrocodone-acetaminophen 1 tab PO Q6H PRN 10/06/20 01/14/21 History magnesium oxide 400 mg PO BID #180 tab 10/08/20 01/14/21 Rx metoprolol succinate 12.5 mg PO BID #180 tab 10/08/20 01/14/21 Rx clopidogrel [Plavix] 75 mg PO DAILY 01/14/21 01/14/21 History glipizide 2.5 mg PO DAILY 01/14/21 01/14/21 History fbpvfeihojzf-kbjgeqkv-lsfdnx 1 tab PO DAILY 01/14/21 01/14/21 History [Centrum Silver] Allergies Allergy/AdvReac Type Severity Reaction Status Date / Time Vektqxf-Spa-Yox Reductase Allergy Intermediate MUSCLE PAIN Verified 01/14/21 10:05 Inhibitor [AWHLHSK-TMN-HBR REDUCTASE INHIBITOR] piroxicam [PIROXICAM] Allergy Mild NAUSEA, Verified 01/14/21 10:05 VOMITING dabigatran etexilate AdvReac Hematuria Verified 01/14/21 10:05 Review of Systems Review of Systems ROS: Yes unobtainable due to mental status (Limited data due to aphasia) Exam Vital Signs (past 8 hours): - 01/14/21 11:30 01/14/21 12:00 01/14/21 12:46 Temperature 98.0 F Pulse Rate 69 69 69 Respiratory Rate 24 18 26 H Blood Pressure 148/81 H 126/75 154/77 H Pulse Oximetry 96 96 98 01/14/21 19:05 Temperature Pulse Rate 70 Respiratory Rate 14 Blood Pressure 162/80 H Pulse Oximetry 99 Oxygen Delivery Method Room Air Oxygen Flow Rate 0 Narrative Exam Narrative: GENERAL APPEARANCE: well developed, well nourished, acutely altered and nonverbal with global weakness and spontaneous movement of left arm only. HEENT: Normocephalic, PERRLA, conjunctiva clear, case tract bilaterally, left facial droop. NECK/THYROID: No JVD SKIN: [place], warm and dry. HEART: regular rate and rhythm, S1-S2, no murmur appreciated, no rubs or gallops, brisk capillary refill, no edema LUNGS: clear to auscultation bilaterally, no coarseness crackles or wheezing, no cough present CHEST: Symmetrical movement, no accessory muscle use, good tidal volume. ABDOMEN: Soft, no distention, no epigastric or abdominal tenderness. EXTREMITIES: Spontaneous movement left arm, heart drift right arm, flaccid bilateral lower extremities, no clubbing or cyanosis. NEUROLOGIC: NIH scores 26, Awake, nonverbal, left facial droop without ptosis, gaze tracks bilaterally response to stimulation in all extremities. PSYCH: Anxious appearing, nonverbal unable follow commands. Objective Labs Result Diagrams: 01/14/21 19:45 01/14/21 19:45 Labs: Laboratory Results - last 24 hr 01/14/21 01/14/21 01/14/21 08:58 08:58 08:58 WBC 6.0 RBC 3.49 L Hgb 10.6 L Hct 32.0 L MCV 91.7 MCH 30.3 MCHC 33.1 RDW 15.1 H Plt Count 239 Neut % (Auto) 66.3 Lymph % (Auto) 22.8 L [place] % (Auto) 9.6 Eos % (Auto) 0.7 L Baso % (Auto) 0.6 Neut # (Auto) 4000 Lymph # (Auto) 1400 [place] # (Auto) 600 Eos # (Auto) 0 Baso # (Auto) 0 Sodium 125 L Potassium 5.1 Chloride 95 L Carbon Dioxide 22 BUN 21 H Creatinine 1.51 H Estimated GFR 44.1 L BUN/Creatinine Ratio 13.9 Glucose 220 H Lactate 3.4 H Calcium 9.1 Magnesium 1.8 Total Bilirubin 0.3 AST 45 ALT 19 Alkaline Phosphatase 65 Troponin I < 0.012 NT-Pro-B Natriuret Pep 260 Total Protein 5.7 L Albumin 3.2 L Globulin 2.5 Albumin/Globulin Ratio 1.3 Lipase 130 Urine Color Urine Appearance Urine pH Ur Specific [place] Urine Protein Urine Glucose (UA) Urine Ketones Urine Occult Blood Urine Nitrate Urine Bilirubin Urine Urobilinogen Ur Leukocyte Esterase Urine RBC Urine WBC Urine Bacteria Ur Culture Indicated? Micro UA Comment Nasal Screen MRSA (PCR) SARS-CoV-2 (PCR) 01/14/21 01/14/21 01/14/21 09:35 10:00 11:46 WBC RBC Hgb Hct MCV MCH MCHC RDW Plt Count Neut % (Auto) Lymph % (Auto) [place] % (Auto) Eos % (Auto) Baso % (Auto) Neut # (Auto) Lymph # (Auto) [place] # (Auto) Eos # (Auto) Baso # (Auto) Sodium Potassium Chloride Carbon Dioxide BUN Creatinine Estimated GFR BUN/Creatinine Ratio Glucose Lactate 2.4 H Calcium Magnesium Total Bilirubin AST ALT Alkaline Phosphatase Troponin I NT-Pro-B Natriuret Pep Total Protein Albumin Globulin Albumin/Globulin Ratio Lipase Urine Color Yellow Urine Appearance Clear Urine pH 6.5 Ur Specific [place] 1.010 Urine Protein Negative Urine Glucose (UA) 1+ H Urine Ketones Negative Urine Occult Blood Negative Urine Nitrate Negative Urine Bilirubin Negative Urine Urobilinogen 0.2 Ur Leukocyte Esterase Negative Urine RBC None seen Urine WBC None seen Urine Bacteria None seen Ur Culture Indicated? Cult not indicated Micro UA Comment Microscopic normal Nasal Screen MRSA (PCR) SARS-CoV-2 (PCR) Negative 01/14/21 13:00 WBC RBC Hgb Hct MCV MCH MCHC RDW Plt Count Neut % (Auto) Lymph % (Auto) [place] % (Auto) Eos % (Auto) Baso % (Auto) Neut # (Auto) Lymph # (Auto) [place] # (Auto) Eos # (Auto) Baso # (Auto) Sodium Potassium Chloride Carbon Dioxide BUN Creatinine Estimated GFR BUN/Creatinine Ratio Glucose Lactate Calcium Magnesium Total Bilirubin AST ALT Alkaline Phosphatase Troponin I NT-Pro-B Natriuret Pep Total Protein Albumin Globulin Albumin/Globulin Ratio Lipase Urine Color Urine Appearance Urine pH Ur Specific [place] Urine Protein Urine Glucose (UA) Urine Ketones Urine Occult Blood Urine Nitrate Urine Bilirubin Urine Urobilinogen Ur Leukocyte Esterase Urine RBC Urine WBC Urine Bacteria Ur Culture Indicated? Micro UA Comment Nasal Screen MRSA (PCR) Negative for mrsa SARS-CoV-2 (PCR) Assessment & Plan Assessment & Plan narrative: The patient is an 85-year-old male with a past medical history significant for prior CVA (2019), CAD, angina, pacemaker for sick sinus syndrome, placement of Watchman device, diabetes type 2 with neuropathy, renal insufficiency, cervical and lumbar stenosis who was admitted to the hospital to Dr. Mccartney for TIA. 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 1. Acute neurological impairment, acute CVA. -activated code stroke protocol, initial NIH score is 26. Will perform serial NIH scoring. -emergent CT stroke protocol and CTA. Images pushed to tele stroke neurology for review. -fasting glucose is 162, 12 lead EKG: Paced rhythm, will draw updated labs pending CT results and possible tPA administration. -tele Stroke Neurology contacted, video examination followed. -tele neurology recommends tPA administration which is administered per protocol in the ICU. Primary role turned over to presents at bedside and is updated the patient findings progress and plan of care. Recommended transfer to higher level of care with Neurology due to recurrence and density of the patient's deficits. Code status: The patient is full code and his is at bedside as surrogate decision maker. Thank you for the opportunity to assist in the care and evaluation of this pleasant gentleman. Critical care time: 80 minutes COVID-19 COVID-19 status: Negative Result date/Date tested (Pos, Neg/Pending): 01/14/21 Time Spent With Patient Time with patient: Greater than 35 minutes
--- NOTE | 2021-01-14 19:50 | PC.NURSE ---
Patient called at 18:07, stated he had to go to the rest room to have a BM. I asked if he wanted to use the bed side commode instead of walking all the way into the bathroom, he said no. I indicated to patient that I would check on him, and gave him the cord for the call light. His stood by the bathroom door and said she would keep an eye on him. I keep checking in on him and he stated that he had not had a BM yet, and wanted me to ask the RN if she could give him something to poop. I related this info to the RN. I returned to the patient and then asked if he wanted to go back to bed, he adamantly said no. At around 18:57 I convinced him along with his to return to bed. Patient had a little difficulty maneuvering the walker and I noticed that the wheel was getting stuck in the door way. We directed him towards the bed and had to redirect him a few times as he seemed confused. We got him back into bed at 19:00. The RN went into the room to get his vitals and began to notice that he was acting strangely. At that point we called a stroke code.
[2021-01-14 19:52] LABS: Add Manual Diff / Slide Review NO; Basophils Absolute Auto 0 /uL (0-100); Basophils Percent Auto 0.7 % (0-2); Eosinophils Absolute Auto 0 /uL (0-450); Eosinophils Percent Auto 0.5 % (2-4); Hematocrit 34.1 % (41-53); Hemoglobin 11.3 g/dL (13.5-17.5); Lymphocytes Absolute Auto 1500 /uL (1100-4500); Lymphocytes Percent Auto 20.7 % (25-40); Mean Corpuscular Hemoglobin 30.1 PG (26-34); Mean Corpuscular Volume 91.1 fL (80-100); Monocytes Absolute Auto 800 /uL (0-900); Monocytes Percent Auto 11.6 % (3-14); Neutrophils Absolute Auto 4700 /uL (1500-7000); Neutrophils Percent Auto 66.5 % (50-75); Platelet Count 263 X10^3/uL (150-400); Red Blood Cell Count 3.74 X10^6/uL (4.5-5.9); Red Cell Distribution Width 15.1 % (11.6-14.8); White Blood Cell Count 7.1 X10^3/uL (4.5-11.0)
[2021-01-14 20:05] LABS: INR 1.1 (0.9-1.3); Prothrombin Time 12.6 SECONDS (10.1-12.7)
[2021-01-14 20:08] LABS: BUN Creatinine Ratio 15.3 (6-22); Blood Urea Nitrogen 24 mg/dL (9-20); Calcium 9.4 mg/dL (8.4-10.2); Carbon Dioxide 21 mmol/L (22-32); Chloride 96 mmol/L (98-107); Estimated Glomerular Filt Rate 42.2 mL/min (>60); Glucose 145 mg/dL (80-110); HEMOLYSIS < 15 (0-50); PTT Partial Thromboplastin Tim 32 SECONDS (26.4-36.2); Potassium 5.2 mmol/L (3.4-5.1); Sodium 128 mmol/L (137-145)
[2021-01-14 20:28] LABS: Lactate (Lactic Acid) 4.1 mmol/L (0.7-2.1)
--- NOTE | 2021-01-14 21:01 | PM.PN.1 ---
Subjective Subjective Date Patient Seen: 01/14/21 Interval history: Received page at 723pm that code stroke was called on pt when he stopped moving or talking. He was taken to ER for scans and had recovered ability to move and follow commands by the time he returned to floor however remained aphasic. I left home at 755 and arrived at bedside at approx 810 pm at which time pt was undergoing evaluation via telemed neurology link. Pt did well with following movement commands however evidenced clear expressive aphasia. Neurology recommended we proceed with alteplase. Evaluation of CTA by teleneuro Dr. Guerrero confirmed no large vessel occlusion and we proceeded with alteplase order and transfer preparations to [facility], I discussed Mr. Kasper' case with accepting neurointensivist Dr. Giovanni Chun and confirmed his med list. I remained in the unit dealing with transfer coordination with accepting hospital and discussion with family including Ellie and daughter Julia. Air transport arrived at bedside at 9:50 and I gave handoff to flight nurse. Over half my time was spent at bedside with pt and family. Pt left unit at 10:05 and I completed this note and headed home shortly thereafter. Exam Vital Signs (past 8 hours): - 01/14/21 19:05 01/14/21 19:39 Temperature 97.5 F L Pulse Rate 70 70 Respiratory Rate 14 20 Blood Pressure 162/80 H 172/76 H Pulse Oximetry 99 100 Oxygen Delivery Method Room Air Oxygen Flow Rate 0 Resp Effort & Inspection: normal respiratory effort and able to speak in complete sentences Auscultation: clear to auscultation bilaterally Cardio Rate: regular rate Rhythm: regular rhythm Heart Sounds: S1 normal and S2 normal GI Inspection: normal to inspection Palpation: tender (constipation) Auscultation: normal bowel sounds Neuro General: patient alert and patient awake Cranial Nerves: CN's II-XI intact bilaterally Speech: abnormal speech and expressive aphasia Motor: muscle tone normal throughout and strength 5/5 throughout Sensory Exam: no sensory deficits noted Objective Labs Result Diagrams: 01/14/21 19:45 01/14/21 19:45 Labs: Laboratory Results - last 24 hr 01/14/21 01/14/21 01/14/21 08:58 08:58 08:58 WBC 6.0 RBC 3.49 L Hgb 10.6 L Hct 32.0 L MCV 91.7 MCH 30.3 MCHC 33.1 RDW 15.1 H Plt Count 239 Neut % (Auto) 66.3 Lymph % (Auto) 22.8 L [place] % (Auto) 9.6 Eos % (Auto) 0.7 L Baso % (Auto) 0.6 Neut # (Auto) 4000 Lymph # (Auto) 1400 [place] # (Auto) 600 Eos # (Auto) 0 Baso # (Auto) 0 PT INR APTT Sodium 125 L Potassium 5.1 Chloride 95 L Carbon Dioxide 22 BUN 21 H Creatinine 1.51 H Estimated GFR 44.1 L BUN/Creatinine Ratio 13.9 Glucose 220 H Lactate 3.4 H Calcium 9.1 Magnesium 1.8 Total Bilirubin 0.3 AST 45 ALT 19 Alkaline Phosphatase 65 Troponin I < 0.012 NT-Pro-B Natriuret Pep 260 Total Protein 5.7 L Albumin 3.2 L Globulin 2.5 Albumin/Globulin Ratio 1.3 Lipase 130 Urine Color Urine Appearance Urine pH Ur Specific [place] Urine Protein Urine Glucose (UA) Urine Ketones Urine Occult Blood Urine Nitrate Urine Bilirubin Urine Urobilinogen Ur Leukocyte Esterase Urine RBC Urine WBC Urine Bacteria Ur Culture Indicated? Micro UA Comment Nasal Screen MRSA (PCR) SARS-CoV-2 (PCR) 01/14/21 01/14/21 01/14/21 09:35 10:00 11:46 WBC RBC Hgb Hct MCV MCH MCHC RDW Plt Count Neut % (Auto) Lymph % (Auto) [place] % (Auto) Eos % (Auto) Baso % (Auto) Neut # (Auto) Lymph # (Auto) [place] # (Auto) Eos # (Auto) Baso # (Auto) PT INR APTT Sodium Potassium Chloride Carbon Dioxide BUN Creatinine Estimated GFR BUN/Creatinine Ratio Glucose Lactate 2.4 H Calcium Magnesium Total Bilirubin AST ALT Alkaline Phosphatase Troponin I NT-Pro-B Natriuret Pep Total Protein Albumin Globulin Albumin/Globulin Ratio Lipase Urine Color Yellow Urine Appearance Clear Urine pH 6.5 Ur Specific [place] 1.010 Urine Protein Negative Urine Glucose (UA) 1+ H Urine Ketones Negative Urine Occult Blood Negative Urine Nitrate Negative Urine Bilirubin Negative Urine Urobilinogen 0.2 Ur Leukocyte Esterase Negative Urine RBC None seen Urine WBC None seen Urine Bacteria None seen Ur Culture Indicated? Cult not indicated Micro UA Comment Microscopic normal Nasal Screen MRSA (PCR) SARS-CoV-2 (PCR) Negative 01/14/21 01/14/21 01/14/21 13:00 19:45 19:45 WBC 7.1 RBC 3.74 L Hgb 11.3 L Hct 34.1 L MCV 91.1 MCH 30.1 MCHC 33.0 RDW 15.1 H Plt Count 263 Neut % (Auto) 66.5 Lymph % (Auto) 20.7 L [place] % (Auto) 11.6 Eos % (Auto) 0.5 L Baso % (Auto) 0.7 Neut # (Auto) 4700 Lymph # (Auto) 1500 [place] # (Auto) 800 Eos # (Auto) 0 Baso # (Auto) 0 PT 12.6 INR 1.1 APTT 32 Sodium Potassium Chloride Carbon Dioxide BUN Creatinine Estimated GFR BUN/Creatinine Ratio Glucose Lactate Calcium Magnesium Total Bilirubin AST ALT Alkaline Phosphatase Troponin I NT-Pro-B Natriuret Pep Total Protein Albumin Globulin Albumin/Globulin Ratio Lipase Urine Color Urine Appearance Urine pH Ur Specific [place] Urine Protein Urine Glucose (UA) Urine Ketones Urine Occult Blood Urine Nitrate Urine Bilirubin Urine Urobilinogen Ur Leukocyte Esterase Urine RBC Urine WBC Urine Bacteria Ur Culture Indicated? Micro UA Comment Nasal Screen MRSA (PCR) Negative for mrsa SARS-CoV-2 (PCR) 01/14/21 01/14/21 19:45 19:45 WBC RBC Hgb Hct MCV MCH MCHC RDW Plt Count Neut % (Auto) Lymph % (Auto) [place] % (Auto) Eos % (Auto) Baso % (Auto) Neut # (Auto) Lymph # (Auto) [place] # (Auto) Eos # (Auto) Baso # (Auto) PT INR APTT Sodium 128 L Potassium 5.2 H Chloride 96 L Carbon Dioxide 21 L BUN 24 H Creatinine 1.57 H Estimated GFR 42.2 L BUN/Creatinine Ratio 15.3 Glucose 145 H Lactate 4.1 H* Calcium 9.4 Magnesium Total Bilirubin AST ALT Alkaline Phosphatase Troponin I NT-Pro-B Natriuret Pep Total Protein Albumin Globulin Albumin/Globulin Ratio Lipase Urine Color Urine Appearance Urine pH Ur Specific [place] Urine Protein Urine Glucose (UA) Urine Ketones Urine Occult Blood Urine Nitrate Urine Bilirubin Urine Urobilinogen Ur Leukocyte Esterase Urine RBC Urine WBC Urine Bacteria Ur Culture Indicated? 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 RBBB Renal insufficiency Sick sinus syndrome Sleep apnea (~2012) Spinal stenosis in cervical region Spinal stenosis of lumbar region TIA (transient ischemic attack) Urinary retention Surgical History H/O laminectomy H/O shoulder surgery H/O thumb surgery History of appendectomy History of bladder surgery History of cardiac cath (~2012) History of cholecystectomy (~2012) History of cystoscopy History of lumbar fusion History of tonsillectomy History of vasectomy S/P drug eluting coronary stent placement Status post right foot surgery Social History marital status: details: aisha Horner, lives in [place] household members: spouse lives independently: Yes caregiver/support person: No housing: house Smoking Status: Never smoker alcohol intake: current substance use type: does not use Assessment & Plan Assessment & Plan narrative: Assessment & Plan narrative: #TIA/CVA presenting condition, CTA wnl, unable to get MRI d/t pacemaker, symptoms largely resolved by time of admission before recurring as... #CVA recurrent, new since admission Recurrent stroke, similar to presenting symptoms. Code stroke called as indicated in narrative. Alteplase ordered after consultation with telemed neuro. Transfer to [place]. #HTN hold home metoprolol succinate 12.5 for permissive hypertension 24-48 hrs post stroke, goal ceiling approx 180/105 #hyponatremia #hypochloremia present on admission, mild, urine not concentrated fluid restriction, trend labs, encourage eating, f/u with am BMP. #elevated lactic acid no other signs of infectious process or sepsis, likely 2/2 retention due to... #acute renal failure Increase in Cr to 1.5 from prior baseline 1.2ish in setting of hyponatremia. Etiology unclear, trend and avoid nephrotoxics. #DM2 with hyperglycemia home meds, diabetic diet, SSI and fingersticks ACHS #CAD s/p stent #pacemaker in place stable, continue plavix, asa 81, lipitor, metoprolol, prn nitrostat #hypothyroid continue home synthroid 75 #BPH continue home finasteride #MDD stable levels of irascibility, continue home duloxetine #GERD stable, ppi #afib continue home amiodarone #hx of hypomagesemia continue home mag supplements dispo: transfer to Located [facility] for higher level of care code:full dvt ppc: SCDs, s/p alteplase diet: carb controlled Quality VTE Deep Vein Thrombosis/Pulmonary Embolism Present on Admission: No
[2021-01-14] MEDS: ALTEPLASE 100 MG VIAL 6.8 MG IV (21:13)
[2021-01-14] MEDS: ALTEPLASE 100 MG VIAL 61.2 MG IV (21:13)
--- NOTE | 2021-01-14 21:53 | P.DS_ITS ---
History of Present Illness History of Present Illness Chief complaint: Stroke Narrative: on day of admission pt awoke in usual state of health, then at 815 noticed while reaching for coffee cup that his R side did not seem to be working correctly. EMS was summoned and he was brought to the ED as a code stroke. Per he has a hx of previous stroke and usually ambulates with walker at home. R sided weakness seemed to resolve however pt was poorly oriented and confused in ED and was found to be hyponatremic and hypochloremic. Orientation much improved by time of admission but not fully to baseline per . does note that she has been making sure he drinks a lot lately, particularly some type of 'd ehydrated water' hydration supplement regarding which patient appears to have suitably low opinion. Of note cardiac stent placed 5 months ago. Pt was admitted for observation and fluid restriction, he was NIHSS zero score when he got to the floor per report. Discharge Providers Provider Date of admission: 01/14/21 12:33 Discharge Date: 01/14/21 Primary care physician: Diane Howard MD Consults: 01/14/21 12:50 Consult to Occupational Therapy Evaluate & Treat Comment: Physician Instructions: Evaluate and treat Consult to Physical Therapy Evaluate & Treat Comment: Physician Instructions: Evaluate and Treat Discharge provider: Tyrone Mccartney MD Summary Hospital Course Discharge Diagnosis: stroke Hospital Course: although pt seemed to have largely recovered from initial cerebral insult, after getting to the floor at 7 pm he had another apparent stroke with loss of ability to move, speak, or follow commands, NIHSS 26. Code Stroke was called and pt was evaluated with repeat imaging and telemed neuro robot link. He had some spontaneous initial recovery but persistent word salad expressive aphasia although moving all limbs and following commands. Alteplase was administered and pt transferred to [facility] for higher level of care by air ambulance. Status at Discharge Cognitive/behavioral status at discharge: oriented (hard to tell, he recognized family but expressive aphasia made it impossible to fully assess) Overall status at discharge: patient is not back to baseline Time Spent with Patient Time spent: Greater than 30 minutes Exam Vital Signs (past 8 hours): - 01/14/21 19:05 01/14/21 19:39 01/14/21 21:10 Temperature 97.5 F L Pulse Rate 70 70 69 Respiratory Rate 14 20 24 Blood Pressure 162/80 H 172/76 H 209/95 H Pulse Oximetry 99 100 100 01/14/21 21:17 01/14/21 21:20 01/14/21 21:30 Temperature Pulse Rate 69 69 69 Respiratory Rate 21 21 31 H Blood Pressure 194/91 H 187/82 H Pulse Oximetry 100 100 99 01/14/21 21:31 01/14/21 21:40 Temperature Pulse Rate 70 68 Respiratory Rate 43 H 22 Blood Pressure 175/83 H 211/94 H Pulse Oximetry 100 97 Oxygen Delivery Method Room Air Oxygen Flow Rate 0 Narrative Exam Narrative: alert elder in bed conversing normally with simple statements, word salad for complex thoughts Const General: cooperative, healthy appearing and comfortable Resp Effort & Inspection: normal respiratory effort Auscultation: clear to auscultation bilaterally Cardio Rate: regular rate Rhythm: regular rhythm Heart Sounds: S1 normal and S2 normal GI Inspection: normal to inspection Palpation: soft Percussion: normal to percussion Auscultation: normal bowel sounds Neuro General: patient alert, patient awake, deep tendon reflexes 2+ bilaterally and unable to assess gait Cranial Nerves: tongue midline, able to rotate head bilaterally and able to elevate shoulders bilaterally Speech: expressive aphasia Motor: muscle tone normal throughout and strength 5/5 throughout Sensory Exam: no sensory deficits noted Coordination: [id number] test normal and [id number] test normal Pupils: Normal pupillary reactivity/response: bilateral Objective Labs Result Diagrams: 01/14/21 19:45 01/14/21 19:45 Labs: Laboratory Results - last 24 hr 01/14/21 01/14/21 01/14/21 08:58 08:58 08:58 WBC 6.0 RBC 3.49 L Hgb 10.6 L Hct 32.0 L MCV 91.7 MCH 30.3 MCHC 33.1 RDW 15.1 H Plt Count 239 Neut % (Auto) 66.3 Lymph % (Auto) 22.8 L [place] % (Auto) 9.6 Eos % (Auto) 0.7 L Baso % (Auto) 0.6 Neut # (Auto) 4000 Lymph # (Auto) 1400 [place] # (Auto) 600 Eos # (Auto) 0 Baso # (Auto) 0 PT INR APTT Sodium 125 L Potassium 5.1 Chloride 95 L Carbon Dioxide 22 BUN 21 H Creatinine 1.51 H Estimated GFR 44.1 L BUN/Creatinine Ratio 13.9 Glucose 220 H Lactate 3.4 H Calcium 9.1 Magnesium 1.8 Total Bilirubin 0.3 AST 45 ALT 19 Alkaline Phosphatase 65 Troponin I < 0.012 NT-Pro-B Natriuret Pep 260 Total Protein 5.7 L Albumin 3.2 L Globulin 2.5 Albumin/Globulin Ratio 1.3 Lipase 130 Urine Color Urine Appearance Urine pH Ur Specific [place] Urine Protein Urine Glucose (UA) Urine Ketones Urine Occult Blood Urine Nitrate Urine Bilirubin Urine Urobilinogen Ur Leukocyte Esterase Urine RBC Urine WBC Urine Bacteria Ur Culture Indicated? Micro UA Comment Nasal Screen MRSA (PCR) SARS-CoV-2 (PCR) 01/14/21 01/14/21 01/14/21 09:35 10:00 11:46 WBC RBC Hgb Hct MCV MCH MCHC RDW Plt Count Neut % (Auto) Lymph % (Auto) [place] % (Auto) Eos % (Auto) Baso % (Auto) Neut # (Auto) Lymph # (Auto) [place] # (Auto) Eos # (Auto) Baso # (Auto) PT INR APTT Sodium Potassium Chloride Carbon Dioxide BUN Creatinine Estimated GFR BUN/Creatinine Ratio Glucose Lactate 2.4 H Calcium Magnesium Total Bilirubin AST ALT Alkaline Phosphatase Troponin I NT-Pro-B Natriuret Pep Total Protein Albumin Globulin Albumin/Globulin Ratio Lipase Urine Color Yellow Urine Appearance Clear Urine pH 6.5 Ur Specific [place] 1.010 Urine Protein Negative Urine Glucose (UA) 1+ H Urine Ketones Negative Urine Occult Blood Negative Urine Nitrate Negative Urine Bilirubin Negative Urine Urobilinogen 0.2 Ur Leukocyte Esterase Negative Urine RBC None seen Urine WBC None seen Urine Bacteria None seen Ur Culture Indicated? Cult not indicated Micro UA Comment Microscopic normal Nasal Screen MRSA (PCR) SARS-CoV-2 (PCR) Negative 01/14/21 01/14/21 01/14/21 13:00 19:45 19:45 WBC 7.1 RBC 3.74 L Hgb 11.3 L Hct 34.1 L MCV 91.1 MCH 30.1 MCHC 33.0 RDW 15.1 H Plt Count 263 Neut % (Auto) 66.5 Lymph % (Auto) 20.7 L [place] % (Auto) 11.6 Eos % (Auto) 0.5 L Baso % (Auto) 0.7 Neut # (Auto) 4700 Lymph # (Auto) 1500 [place] # (Auto) 800 Eos # (Auto) 0 Baso # (Auto) 0 PT 12.6 INR 1.1 APTT 32 Sodium Potassium Chloride Carbon Dioxide BUN Creatinine Estimated GFR BUN/Creatinine Ratio Glucose Lactate Calcium Magnesium Total Bilirubin AST ALT Alkaline Phosphatase Troponin I NT-Pro-B Natriuret Pep Total Protein Albumin Globulin Albumin/Globulin Ratio Lipase Urine Color Urine Appearance Urine pH Ur Specific [place] Urine Protein Urine Glucose (UA) Urine Ketones Urine Occult Blood Urine Nitrate Urine Bilirubin Urine Urobilinogen Ur Leukocyte Esterase Urine RBC Urine WBC Urine Bacteria Ur Culture Indicated? Micro UA Comment Nasal Screen MRSA (PCR) Negative for mrsa SARS-CoV-2 (PCR) 01/14/21 01/14/21 19:45 19:45 WBC RBC Hgb Hct MCV MCH MCHC RDW Plt Count Neut % (Auto) Lymph % (Auto) [place] % (Auto) Eos % (Auto) Baso % (Auto) Neut # (Auto) Lymph # (Auto) [place] # (Auto) Eos # (Auto) Baso # (Auto) PT INR APTT Sodium 128 L Potassium 5.2 H Chloride 96 L Carbon Dioxide 21 L BUN 24 H Creatinine 1.57 H Estimated GFR 42.2 L BUN/Creatinine Ratio 15.3 Glucose 145 H Lactate 4.1 H* Calcium 9.4 Magnesium Total Bilirubin AST ALT Alkaline Phosphatase Troponin I NT-Pro-B Natriuret Pep Total Protein Albumin Globulin Albumin/Globulin Ratio Lipase Urine Color Urine Appearance Urine pH Ur Specific [place] Urine Protein Urine Glucose (UA) Urine Ketones Urine Occult Blood Urine Nitrate Urine Bilirubin Urine Urobilinogen Ur Leukocyte Esterase Urine RBC Urine WBC Urine Bacteria Ur Culture Indicated? 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 RBBB Renal insufficiency Sick sinus syndrome Sleep apnea (~2012) Spinal stenosis in cervical region Spinal stenosis of lumbar region TIA (transient ischemic attack) Urinary retention Surgical History H/O laminectomy H/O shoulder surgery H/O thumb surgery History of appendectomy History of bladder surgery History of cardiac cath (~2012) History of cholecystectomy (~2012) History of cystoscopy History of lumbar fusion History of tonsillectomy History of vasectomy S/P drug eluting coronary stent placement Status post right foot surgery Social History marital status: details: aisha Horner, lives in [place] household members: spouse lives independently: Yes caregiver/support person: No housing: house Smoking Status: Never smoker alcohol intake: current substance use type: does not use Discharge Assessment & Plan Assessment and Plan Plan of Treatment: #TIA/CVA presenting condition, initial CTA wnl, unable to get MRI d/t pacemaker, symptoms largely resolved by time of admission before recurring as... #CVA recurrent, new since admission Recurrent stroke, similar to presenting symptoms. Code stroke called as indicated in narrative, repeat CTA also wnl. Alteplase administered after consultation with telemed neuro. Transfer to [place]. #HTN hold home metoprolol succinate 12.5 for permissive hypertension 24-48 hrs post stroke, goal ceiling approx 180/105 #hyponatremia #hypochloremia present on admission, mild, urine not concentrated fluid restriction, trend labs, encourage eating, f/u with am BMP. #elevated lactic acid no other signs of infectious process or sepsis, monitor, likely 2/2 retention/tissue anoxia #acute renal failure Increase in Cr to 1.5 from prior baseline 1.2ish in setting of hyponatremia. Etiology unclear, trend and avoid nephrotoxics. #DM2 with hyperglycemia home meds, diabetic diet, SSI and fingersticks ACHS #CAD s/p stent #pacemaker in place stable, continue plavix, asa 81, lipitor, metoprolol, prn nitrostat #hypothyroid continue home synthroid 75 #BPH continue home finasteride #MDD stable level of irascibility, continue home duloxetine #GERD stable, ppi #afib continue home amiodarone #hx of hypomagesemia continue home mag supplements dispo: transfer to [facility] for higher level of care code:full dvt ppc: SCDs, s/p alteplase diet: carb controlled Discharge Plan Discharge Plan Patient Disposition: [facility] Other facility: [facility] Neuro ICU Under care of provider: Giovanni Chun Provider Discharge Comment: recurrent CVA, s/p alteplase for expressive aphasia, helicopter to higher level of care Diet/Activity/Treatments Diet: Carb-consistent/Diabetic Discharge Data Primary Care Provider: Diane Howard Attending Provider: Tyrone Mccartney VTE Deep Vein Thrombosis/Pulmonary Embolism Present on Admission: No
[2021-01-14 22:01] LABS: Reflexed Lactate in 2 Hours Y
--- NOTE | 2021-01-23 11:44 | PC.NURSE ---
Late Entry; NS infusion initiated 01/14 at 13:20, stopped by MD order at 14:57.
== END 2021-01-14 22:00 | disposition short-term general hospital (02) ==
LOC: ED 08:46 → AC 12:34 → ICU 14:40 → AC 01-15 14:27
PROVIDERS: Admitting Provider Family Medicine; Emergency Provider Emergency Medicine; PCP Family Medicine; Referring Provider Emergency Medicine; Visit Provider Family Medicine
DX: I63.9 Cerebral infarction, unspecified (principal); R47.01 Aphasia; I10 Essential (primary) hypertension; I25.10 Atherosclerotic heart disease of native coronary artery without angina pectoris; E11.41 Type 2 diabetes mellitus with diabetic mononeuropathy; N28.9 Disorder of kidney and ureter, unspecified; E11.65 Type 2 diabetes mellitus with hyperglycemia; E87.1 Hypo-osmolality and hyponatremia; E87.8 Other disorders of electrolyte and fluid balance, not elsewhere classified; R74.02 Elevation of levels of lactic acid dehydrogenase [LDH]; E03.9 Hypothyroidism, unspecified; N40.0 Benign prostatic hyperplasia without lower urinary tract symptoms; K21.9 Gastro-esophageal reflux disease without esophagitis; I48.0 Paroxysmal atrial fibrillation; Z95.0 Presence of cardiac pacemaker; Z79.84 Long term (current) use of oral hypoglycemic drugs; R29.726 NIHSS score 26; Z20.822 Contact with and (suspected) exposure to COVID-19
CPT/HCPCS: 36415; 70450; 70496; 70498; 71045; 80048; 80053; 81001; 82962; 83605; 83690; 83735; 83880; 84484; 85025; 85610; 85730; 87040; 87635; 87797; 93005; 96360; 96361; 96374; 97161; 97530; 99285; C9803; G0378; J1815; J2997; Q9967

== ENCOUNTER 2021-01-28 08:59 | Emergency (ER) | payer MEDICARE, OTHER, SELFPAY ==
[2021-01-14 13:40] VITALS: BMI 25.2
[2021-01-28] VITALS (11 sets, daily range): BP systolic 101–178; BP diastolic 67–83; PULSE 69–106; RESP 13–20; TEMP 36.5; O2SAT 97–99; BMI 26.1
--- NOTE | 2021-01-28 09:14 | DI.RAD.S_ITS ---
PROCEDURE: XR CHEST 1V INDICATIONS: chest pain TECHNIQUE: One view of the chest was acquired. COMPARISON: [facility], CR, XR CHEST 1V, 01/14/2021, 9:29. FINDINGS: Surgical changes and devices: Low anterior cervical fusion hardware. Left-sided pacer. Lungs and pleura: Lungs are clear. No pleural effusions or pneumothorax. Mediastinum: Mediastinal contours appear normal. Heart size is normal. Bones and chest wall: No suspicious bony lesions. Overlying soft tissues appear unremarkable. IMPRESSION: No acute process. Dictated by: Deja Drummond M.D. on 01/28/2021 at 9:48 Approved by: Deja Drummond M.D. on 01/28/2021 at 9:48
[2021-01-28 09:24] LABS: Add Manual Diff / Slide Review NO; Basophils Absolute Auto 100 /uL (0-100); Eosinophils Absolute Auto 0 /uL (0-450); Eosinophils Percent Auto 0.3 % (2-4); Hematocrit 39.4 % (41-53); Lymphocytes Absolute Auto 2200 /uL (1100-4500); Lymphocytes Percent Auto 22.2 % (25-40); Mean Corpuscular Hemoglobin 30.2 PG (26-34); Mean Corpuscular Volume 91.3 fL (80-100); Monocytes Absolute Auto 800 /uL (0-900); Monocytes Percent Auto 7.7 % (3-14); Neutrophils Absolute Auto 6700 /uL (1500-7000); Neutrophils Percent Auto 68.8 % (50-75); Platelet Count 319 X10^3/uL (150-400); Red Blood Cell Count 4.32 X10^6/uL (4.5-5.9); Red Cell Distribution Width 15.8 % (11.6-14.8); White Blood Cell Count 9.8 X10^3/uL (4.5-11.0)
[2021-01-28 09:25] LABS: INR 1.1 (0.9-1.3)
[2021-01-28 09:27] LABS: PTT Partial Thromboplastin Tim 33 SECONDS (26.4-36.2)
[2021-01-28 09:30] LABS: Alanine Aminotransferase 26 IU/L (<50); Albumin 4.4 g/dL (3.5-5.0); Albumin Globulin Ratio 1.5 (1.0-2.8); Alkaline Phosphatase 77 U/L (38-126); Aspartate Aminotransferase 31 IU/L (17-59); BUN Creatinine Ratio 11.5 (6-22); Bilirubin Total 0.4 mg/dL (0.2-1.3); Blood Urea Nitrogen 16 mg/dL (9-20); Calcium 9.7 mg/dL (8.4-10.2); Carbon Dioxide 21 mmol/L (22-32); Chloride 97 mmol/L (98-107); Creatine Kinase 42 U/L (55-170); Estimated Glomerular Filt Rate 48.6 mL/min (>60); Globulin 2.9 g/dL (1.7-4.1); Glucose 198 mg/dL (80-110); HEMOLYSIS < 15 (0-50); Lipase 103 U/L (23-300); Potassium 4.6 mmol/L (3.4-5.1); Sodium 133 mmol/L (137-145); Total Protein 7.3 g/dL (6.3-8.2)
--- NOTE | 2021-01-28 09:37 | ED_ITS ---
HPI - Chest Pain General Chief Complaint: Chest Pain Stated Complaint: trouble breathing on and off Time Seen by Provider: 01/28/21 09:16 Source: patient Mode of arrival: Wheelchair Limitations: no limitations History of Present Illness HPI narrative: Patient is an 85-year-old male with history of atrial fibrillatio n pacemaker watch min, recent TIA which evolved into a stroke and he received tPA on January 14 is presenting today with generalized weakness and shortness of breath. To have difficulty holding utensils with his right hand from his recent TIA.However last night he noticed that he was having increasing shortness of breath and needed to sleep in the recliner. He has no chest pain or palpitations. He denies any fever or cough. No peripheral edema. He also feels a little dizzy and lightheaded when he stands up but also sometimes at rest. No new focal deficits. Related Data Home Medications Medication Instructions Recorded Confirmed levothyroxine 75 mcg PO QAM 08/27/18 01/14/21 metformin 500 mg PO BID 08/27/18 01/14/21 amiodarone 200 mg tablet 100 mg PO QAM tab 12/24/18 01/14/21 aspirin 81 mg tablet,delayed 81 mg PO QAM 12/24/18 01/14/21 release finasteride 5 mg PO BEDTIME 07/06/20 01/14/21 atorvastatin 20 mg PO QAM 09/23/20 01/14/21 duloxetine 30 mg PO BEDTIME 09/23/20 01/14/21 esomeprazole magnesium 40 mg PO BID 09/23/20 01/14/21 ondansetron HCl 4 mg PO TID PRN 09/23/20 01/14/21 hydrocodone-acetaminophen 1 tab PO Q6H PRN 10/06/20 01/14/21 clopidogrel [Plavix] 75 mg PO DAILY 01/14/21 01/14/21 glipizide 2.5 mg PO DAILY 01/14/21 01/14/21 fbehctnnbmmc-upqctolq-[id number] 1 tab PO DAILY 01/14/21 01/14/21 [Centrum Silver] Previous Rx's Medication Instructions Recorded nitroglycerin 0.4 mg SL Q5-15M PRN #30 tab 06/29/18 magnesium oxide 400 mg PO BID #180 tab 10/08/20 metoprolol succinate 12.5 mg PO BID #180 tab 10/08/20 Allergies Allergy/AdvReac Type Severity Reaction Status Date / Time Tndnqhk-Mtk-Fzv Reductase Allergy Intermediate MUSCLE PAIN Verified 01/28/21 09:17 Inhibitor [[id number] REDUCTASE INHIBITOR] piroxicam [PIROXICAM] Allergy Mild NAUSEA, Verified 01/28/21 09:17 VOMITING dabigatran etexilate AdvReac Hematuria Verified 01/28/21 09:17 Review of Systems Review of Systems ROS Unobtainable: All systems reviewed & are unremarkable except as noted in HPI and below Constitutional Constitutional: Denies body ache(s), Denies chills, Denies frequent falls and Denies headache(s) ENT Ears, Nose, Mouth, and Throat: Reports dizziness and Denies headache(s) Cardiovascular Cardiovascular: Reports as per HPI, Denies chest pain, Denies syncope, Denies leg edema, Denies dyspnea, Reports dyspnea on exertion and Reports orthopnea Respiratory Respiratory: Denies cough, Denies dyspnea, Reports dyspnea on exertion and Denies wheezing Gastrointestinal Gastrointestinal: Denies abdominal pain, Denies change in bowel habits, Denies diarrhea, Denies nausea and Denies vomiting Musculoskeletal Musculoskeletal: Denies back pain and Denies arthralgias Integumentary/Breasts Skin/Breast: Denies pruritus, Denies erythema, Denies rash and Denies wounds Neurologic Neurologic: Reports as per HPI, Reports dizziness, Denies syncope, Denies frequent falls, Denies headache(s) and Denies radicular pain Allergic/Immunologic Allergic/Immunologic: Denies wheezing Patient History Medical History Anxiety CAD (coronary artery disease) DDD (degenerative disc disease), cervical Depression Diabetes Dyslipidemia Dysuria Elevated serum homocysteine level History of angina History of CVA (cerebrovascular accident) History of dizziness History of esophageal reflux History of fatigue History of hematuria Impotence Lumbosacral radiculopathy at L5 Memory deficit Neuropathy of both feet Osteoarthritis Pacemaker (~2013) Paroxysmal A-fib 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 RBBB Renal insufficiency Sick sinus syndrome Sleep apnea (~2012) Spinal stenosis in cervical region Spinal stenosis of lumbar region TIA (transient ischemic attack) Urinary retention Surgical History H/O laminectomy H/O shoulder surgery H/O thumb surgery History of appendectomy History of bladder surgery History of cardiac cath (~2012) History of cholecystectomy (~2012) History of cystoscopy History of lumbar fusion History of tonsillectomy History of vasectomy S/P drug eluting coronary stent placement Status post right foot surgery Social History marital status: details: aisha Horner, lives in [place] household members: spouse lives independently: Yes caregiver/support person: No housing: house Smoking Status: Never smoker alcohol intake: current substance use type: does not use Smoking Status: Never smoker alcohol intake frequency: holidays/special occasions only Substance Use Type: does not use Exam Initial Vital Signs Initial Vital Signs: Vital Signs Temperature 97.7 F 01/28/21 09:00 Pulse Rate 104 H 01/28/21 09:00 Respiratory Rate 15 01/28/21 09:00 Blood Pressure 137/77 01/28/21 09:00 Pulse Oximetry 99 01/28/21 09:00 GENERAL: Alert pleasant 85-year-old male and in no acute distress. HEENT: Head atraumatic,EOMI, pupils reactive, face symmetric, moist mucous membranes CARDIOVASCULAR: Irregularly irregular RESPIRATORY: Breath sounds equal bilaterally, no wheezes rales or rhonchi. ABDOMEN: Soft, nontender. Normoactive bowel sounds all 4 quadrants. No guarding or rebound. EXTREMITIES: Normal range of motion, no clubbing or edema. Neurovascularly intact NEUROLOGICAL: Alert and oriented x4. Cranial nerves II through XII grossly intact. SKIN: Warm, dry, no laceration, no petechiae, no rashes or lesions. Course Orders Ordered: ED Orders 01/28/21 11:21 CT angio chest PE protocol Stat 01/28/21 11:30 EKG-12 Lead Routine Vital Signs Vital signs: Vital Signs - 8 hr 01/28/21 11:00 01/28/21 11:30 01/28/21 11:50 Pulse Rate 69 69 70 Respiratory Rate 13 17 Blood Pressure 132/74 145/83 H 160/77 H Pulse Oximetry 97 98 98 01/28/21 12:00 01/28/21 12:30 Pulse Rate 70 70 Respiratory Rate Blood Pressure 159/77 H 178/79 H Pulse Oximetry 98 98 MDM - Chest Pain Lab Data Attestation: I reviewed the patient's lab results. Result diagrams: 01/28/21 09:12 01/28/21 09:12 Labs: Lab Results 01/28/21 01/28/21 01/28/21 Range/Units 09:12 09:12 09:12 WBC 9.8 (4.5-11.0) X10^3/uL RBC 4.32 L (4.5-5.9) X10^6/uL Hgb 13.0 L (13.5-17.5) g/dL Hct 39.4 L (41-53) % MCV 91.3 (80-100) fL MCH 30.2 (26-34) PG MCHC 33.0 (30-36) % RDW 15.8 H (11.6-14.8) % Plt Count 319 (150-400) X10^3/uL Neut % (Auto) 68.8 (50-75) % Lymph % (Auto) 22.2 L (25-40) % [place] % (Auto) 7.7 (3-14) % Eos % (Auto) 0.3 L (2-4) % Baso % (Auto) 1.0 (0-2) % Neut # (Auto) 6700 (1747-9928) /uL Lymph # (Auto) 2200 (1352-9439) /uL [place] # (Auto) 800 (0-900) /uL Eos # (Auto) 0 (0-450) /uL Baso # (Auto) 100 (0-100) /uL PT 12.0 (10.1-12.7) SECONDS INR 1.1 (0.9-1.3) APTT 33 (26.4-36.2) SECONDS Sodium 133 L (137-145) mmol/L Potassium 4.6 (3.4-5.1) mmol/L Chloride 97 L (98-107) mmol/L Carbon Dioxide 21 L (22-32) mmol/L BUN 16 (9-20) mg/dL Creatinine 1.39 H (0.66-1.25) mg/dL Estimated GFR 48.6 L (>60) mL/min BUN/Creatinine Ratio 11.5 (6-22) Glucose 198 H (80-110) mg/dL Calcium 9.7 (8.4-10.2) mg/dL Total Bilirubin 0.4 (0.2-1.3) mg/dL AST 31 (17-59) IU/L ALT 26 (<50) IU/L Alkaline Phosphatase 77 (38-126) U/L Total Creatine Kinase 42 L (55-170) U/L CK-MB (CK-2) TNP CK-MB (CK-2) Rel Index TNP Troponin I 0.013 (0.01-0.034) ng/mL NT-Pro-B Natriuret Pep (<450) pg/mL Total Protein 7.3 (6.3-8.2) g/dL Albumin 4.4 (3.5-5.0) g/dL Globulin 2.9 (1.7-4.1) g/dL Albumin/Globulin Ratio 1.5 (1.0-2.8) Lipase 103 (23-300) U/L 01/28/21 Range/Units 09:12 WBC (4.5-11.0) X10^3/uL RBC (4.5-5.9) X10^6/uL Hgb (13.5-17.5) g/dL Hct (41-53) % MCV (80-100) fL MCH (26-34) PG MCHC (30-36) % RDW (11.6-14.8) % Plt Count (150-400) X10^3/uL Neut % (Auto) (50-75) % Lymph % (Auto) (25-40) % [place] % (Auto) (3-14) % Eos % (Auto) (2-4) % Baso % (Auto) (0-2) % Neut # (Auto) (0915-8713) /uL Lymph # (Auto) (9347-6650) /uL [place] # (Auto) (0-900) /uL Eos # (Auto) (0-450) /uL Baso # (Auto) (0-100) /uL PT (10.1-12.7) SECONDS INR (0.9-1.3) APTT (26.4-36.2) SECONDS Sodium (137-145) mmol/L Potassium (3.4-5.1) mmol/L Chloride (98-107) mmol/L Carbon Dioxide (22-32) mmol/L BUN (9-20) mg/dL Creatinine (0.66-1.25) mg/dL Estimated GFR (>60) mL/min BUN/Creatinine Ratio (6-22) Glucose (80-110) mg/dL Calcium (8.4-10.2) mg/dL Total Bilirubin (0.2-1.3) mg/dL AST (17-59) IU/L ALT (<50) IU/L Alkaline Phosphatase (38-126) U/L Total Creatine Kinase (55-170) U/L CK-MB (CK-2) CK-MB (CK-2) Rel Index Troponin I (0.01-0.034) ng/mL NT-Pro-B Natriuret Pep 1220 H (<450) pg/mL Total Protein (6.3-8.2) g/dL Albumin (3.5-5.0) g/dL Globulin (1.7-4.1) g/dL Albumin/Globulin Ratio (1.0-2.8) Lipase (23-300) U/L Imaging Data Chest x-ray: Radiologist's Impression: PROCEDURE: XR CHEST 1V INDICATIONS: chest pain TECHNIQUE: One view of the chest was acquired. COMPARISON: [facility], , XR CHEST 1V, 01/14/2021, 9:29. FINDINGS: Surgical changes and devices: Low anterior cervical fusion hardware. Left- sided pacer. Lungs and pleura: Lungs are clear. No pleural effusions or pneumothorax. Mediastinum: Mediastinal contours appear normal. Heart size is normal. Bones and chest wall: No suspicious bony lesions. Overlying soft tissues appear unremarkable. IMPRESSION: No acute process. Dictated by: Deja Drummond M.D. on 01/28/2021 at 9:48 Approved by: Deja Drummond M.D. on 01/28/2021 at 9:48 CT scan - chest: Radiologist's Impression: PROCEDURE: CT ANGIO CHEST PE PROTOCOL INDICATIONS: shortness of breath TECHNIQUE: After the administration of intravenous contrast, 2 mm thick sections acquired from the pulmonary apices to the posterior costophrenic angles. 3-dimensional maximum intensity projection (MIP) coronal and sagittal reformats were then acquired through the thorax. For radiation dose reduction, the following was used: automated exposure control, adjustment of mA and/or kV according to patient size. COMPARISON: [facility], CT, CT ABDOMEN PELVIS W CON, 09/30/2019, 9:10. FINDINGS: Lungs: Scattered subsegmental atelectasis and/or scarring. No focal consolidation. 4 mm pulmonary nodule seen in the lingula on image 166/5 appears grossly unchanged since 09/30/19, although limited evaluation given differences in exam protocol and slic e thickness. Airway thickening in keeping with nonspecific bronchitis and/or reactive airways disease. Right posterior lung base calcified granuloma. Pleura: No pleural effusion or pneumothorax. Heart: Heart is enlarged mildly. No pericardial effusion. Incidental postoperative changes involving the left atrium. Coronary artery disease noted. Chest nodes: Normal. Thyroid gland: Negative Aorta: Normal. Scattered vascular calcifications. Pulmonary arteries: Pulmonary arteries appear mildly enlarged. No intraluminal filling defects. Esophagus: Normal. Upper abdomen: Gallbladder surgically absent. Presumed cyst or hemangioma in the dome of the liver, unchanged.. Bones: Diffuse spondylosis and facet arthropathy. IMPRESSION: No evidence of pulmonary embolism. No aortic dissection identified. Enlargement of the central pulmonary arteries suggestive of pulmonary arterial hypertension. No acute abnormality. Scattered subsegmental atelectasis and/or scarring. No focal consolidation. Airway thickening in keeping with nonspecific bronchitis and/or reactive airways disease. Mild cardiomegaly Additional chronic/incidental findings as above. Dictated by: Zbigneiw Duong M.D. on 01/28/2021 at 11:59 ECG Data Attestation: I personally reviewed and interpreted this ECG as follows: Prior ECG tracings: available for review Interpretation: EKG 1. Atrial fibrillation rate [address] changes EKG 2. Paced rhythm rate [address] changes MDM Narrative Medical decision making narrative: Patient having shortness of breath unclear etiology chest x-ray is is clear blood work is overall reassuring BNP is not significantly elevated. Will get CT although it would be odd to have pulmonary embolism after tPA however he did have a recent hospitalization and is not on anticoagulation. CT is negative for pulmonary embolism. Pacemaker interrogation reports he has had multiple episodes of atrial fib with RVR today lasting for up to 3 hours with heart rates as high as 140. 12:00 Dr. Schultz, updated on patient's symptoms and test results at this time recommends increasing amiodarone from 100 mg to 200 mg for 2 weeks and then return to 100 mg. I have discussed this with both patient and his all questions have been answered. Discharge Plan Departure Patient Disposition: Home Clinical Impression: Atrial fibrillation Qualifiers: Atrial fibrillation type: longstanding persistent Qualified Code(s): I48.11 - Longstanding persistent atrial fibrillation Instructions: Atrial Fibrillation Activity Restrictions/Additional Instructions: *You have been diagnosed with atrial fibrillation *What to do: At this time her shortness of breath is likely related to your atrial fibrillation *Continue to take medications as directed Increase amiodarone from 100 mg to 200 mg once a day for 2 weeks and then return to 100 mg *Follow up with your primary care provider in 2-3 days *Return to ER if you should have increasing chest pain shortness of breath dizziness or lightheadedness or any new, worsening or concerning symptoms Prescriptions: No Action nitroglycerin 0.4 mg tablet, sublingual 0.4 mg SL Q5-15M PRN (Reason: chest pain) Qty: 30 RF: 2 clopidogrel [Plavix] 75 mg Tablet 75 mg PO DAILY RF: 0 glipizide 2.5 mg Tablet Extended Release 24hr 2.5 mg PO DAILY RF: 0 Centrum Silver Tablet 1 tab PO DAILY RF: 0 levothyroxine 75 mcg tablet 75 mcg PO QAM RF: 0 metformin 1,000 mg tablet 500 mg PO BID RF: 0 finasteride 5 mg Tablet 5 mg PO BEDTIME RF: 0 atorvastatin 20 mg tablet 20 mg PO QAM RF: 0 duloxetine 30 mg capsule,delayed release(DR/EC) 30 mg PO BEDTIME RF: 0 ondansetron HCl 4 mg tablet 4 mg PO TID PRN (Reason: nausea) RF: 0 esomeprazole magnesium 40 mg capsule,delayed release(DR/EC) 40 mg PO BID RF: 0 hydrocodone-acetaminophen 5-325 mg Tablet 1 tab PO Q6H PRN (Reason: Pain, Moderate) RF: 0 magnesium oxide 400 mg (241.3 mg magnesium) Tablet 400 mg PO BID Qty: 180 RF: 3 metoprolol succinate 25 mg Tablet Extended Release 24 Hr 12.5 mg PO BID Qty: 180 RF: 3 amiodarone 200 mg tablet 100 mg PO QAM RF: 0 aspirin [Adult Low Dose Aspirin] 81 mg tablet,delayed release (DR/EC) 81 mg PO QAM RF: 0 Referrals: Joss Arteaga MD [Physician] - Diane Howard MD [Primary Care Provider] -
[2021-01-28 09:41] LABS: Troponin I 0.013 ng/mL (0.01-0.034)
[2021-01-28 10:22] LABS: NT-proBNP (BNP-Adult 18+) 1220 pg/mL (<450)
--- NOTE | 2021-01-28 11:21 | DI.CT.S_ITS ---
PROCEDURE: CT ANGIO CHEST PE PROTOCOL INDICATIONS: shortness of breath TECHNIQUE: After the administration of intravenous contrast, 2 mm thick sections acquired from the pulmonary apices to the posterior costophrenic angles. 3-dimensional maximum intensity projection (MIP) coronal and sagittal reformats were then acquired through the thorax. For radiation dose reduction, the following was used: automated exposure control, adjustment of mA and/or kV according to patient size. COMPARISON: [facility], CT, CT ABDOMEN PELVIS W CON, 09/30/2019, 9:10. FINDINGS: Lungs: Scattered subsegmental atelectasis and/or scarring. No focal consolidation. 4 mm pulmonary nodule seen in the lingula on image 166/5 appears grossly unchanged since 09/30/19, although limited evaluation given differences in exam protocol and slice thickness. Airway thickening in keeping with nonspecific bronchitis and/or reactive airways disease. Right posterior lung base calcified granuloma. Pleura: No pleural effusion or pneumothorax. Heart: Heart is enlarged mildly. No pericardial effusion. Incidental postoperative changes involving the left atrium. Coronary artery disease noted. Chest nodes: Normal. Thyroid gland: Negative Aorta: Normal. Scattered vascular calcifications. Pulmonary arteries: Pulmonary arteries appear mildly enlarged. No intraluminal filling defects. Esophagus: Normal. Upper abdomen: Gallbladder surgically absent. Presumed cyst or hemangioma in the dome of the liver, unchanged.. Bones: Diffuse spondylosis and facet arthropathy. IMPRESSION: No evidence of pulmonary embolism. No aortic dissection identified. Enlargement of the central pulmonary arteries suggestive of pulmonary arterial hypertension. No acute abnormality. Scattered subsegmental atelectasis and/or scarring. No focal consolidation. Airway thickening in keeping with nonspecific bronchitis and/or reactive airways disease. Mild cardiomegaly Additional chronic/incidental findings as above. Dictated by: Zbigniew Duong M.D. on 01/28/2021 at 11:59 Approved by: Zbigniew Duong M.D. on 01/28/2021 at 12:07
== END 2021-01-28 12:56 | disposition home or self-care (01) ==
PROVIDERS: Emergency Provider Emergency Medicine; PCP Family Medicine
DX: I48.11 Longstanding persistent atrial fibrillation (principal); R06.02 Shortness of breath; Z95.0 Presence of cardiac pacemaker
CPT/HCPCS: 36415; 71045; 71275; 80053; 82550; 83690; 83880; 84484; 85025; 85610; 85730; 93005; 93010; 99284

== ENCOUNTER 2021-02-06 14:14 | Emergency (ER) | payer MEDICARE, OTHER, SELFPAY ==
[2021-01-14 13:40] VITALS: BMI 25.2
[2021-02-06] VITALS (11 sets, daily range): BP systolic 95–150; BP diastolic 53–82; PULSE 69; RESP 18–30; TEMP 36.6; O2SAT 96–99; BMI 26.1
--- NOTE | 2021-02-06 14:15 | DI.RAD.S_ITS ---
PROCEDURE: XR CHEST 1V INDICATIONS: chest pain TECHNIQUE: One view of the chest was acquired. COMPARISON: [facility], CT, CT ANGIO CHEST PE PROTOCOL, 01/28/2021, 11:47. [facility], CR, XR CHEST 1V, 01/14/2021, 9:29. [facility], CR, XR CHEST 1V, 01/28/2021, 9:34. FINDINGS: Surgical changes and devices: Cervical spine fixation hardware is seen. A pacer device is seen. The leads are seen in stable positions. Lungs and pleura: Lungs are clear. No pleural effusions or pneumothorax. Mediastinum: Mediastinal contours appear normal. Heart size is normal. Bones and chest wall: Age-appropriate bony degenerative changes are seen. No suspicious bony lesions. Overlying soft tissues appear unremarkable. IMPRESSION: Unremarkable portable chest for age, with note made of postoperative and degenerative change. Dictated by: Good Peña M.D. on 02/06/2021 at 13:32 Approved by: Good Peña M.D. on 02/06/2021 at 13:33
[2021-02-06 14:34] LABS: INR 1.1 (0.9-1.3)
[2021-02-06 14:36] LABS: Add Manual Diff / Slide Review NO; Basophils Absolute Auto 0 /uL (0-100); Basophils Percent Auto 0.7 % (0-2); Eosinophils Absolute Auto 0 /uL (0-450); Eosinophils Percent Auto 0.7 % (2-4); Hematocrit 36.3 % (41-53); Lymphocytes Absolute Auto 1400 /uL (1100-4500); Lymphocytes Percent Auto 22.1 % (25-40); Mean Corpuscular HGB Conc 33.1 % (30-36); Mean Corpuscular Hemoglobin 30.4 PG (26-34); Mean Corpuscular Volume 91.7 fL (80-100); Monocytes Absolute Auto 700 /uL (0-900); Monocytes Percent Auto 10.9 % (3-14); Neutrophils Absolute Auto 4200 /uL (1500-7000); Neutrophils Percent Auto 65.6 % (50-75); Platelet Count 282 X10^3/uL (150-400); Red Blood Cell Count 3.95 X10^6/uL (4.5-5.9); White Blood Cell Count 6.4 X10^3/uL (4.5-11.0)
[2021-02-06 14:37] LABS: PTT Partial Thromboplastin Tim 28 SECONDS (26.4-36.2)
[2021-02-06 14:38] LABS: Alanine Aminotransferase 24 IU/L (<50); Albumin 4.1 g/dL (3.5-5.0); Albumin Globulin Ratio 1.6 (1.0-2.8); Alkaline Phosphatase 59 U/L (38-126); Aspartate Aminotransferase 30 IU/L (17-59); BUN Creatinine Ratio 15.9 (6-22); Bilirubin Total 0.3 mg/dL (0.2-1.3); Blood Urea Nitrogen 20 mg/dL (9-20); Calcium 9.8 mg/dL (8.4-10.2); Carbon Dioxide 23 mmol/L (22-32); Chloride 97 mmol/L (98-107); Creatine Kinase 38 U/L (55-170); Estimated Glomerular Filt Rate 54.4 mL/min (>60); Globulin 2.6 g/dL (1.7-4.1); Glucose 107 mg/dL (80-110); HEMOLYSIS 23 (0-50); Lipase 109 U/L (23-300); Potassium 4.8 mmol/L (3.4-5.1); Sodium 132 mmol/L (137-145); Total Protein 6.7 g/dL (6.3-8.2)
[2021-02-06 14:49] LABS: NT-proBNP (BNP-Adult 18+) 512 pg/mL (<450); Troponin I < 0.012 ng/mL (0.01-0.034)
--- NOTE | 2021-02-06 15:02 | ED.CHESTPAIN ---
HPI - Chest Pain General Chief Complaint: Chest Pain Stated Complaint: chest pain Time Seen by Provider: 02/06/21 14:53 Source: patient and EMS Mode of arrival: EMS Limitations: no limitations History of Present Illness HPI narrative: Patient is an 85-year-old male was brought in by EMS for chest discomfort. Patient has a known history of coronary artery disease. Also has a known history of strokes. Has had balance issues since his 1st stroke a couple years ago. Not on anticoagulation but does take aspirin and Plavix. Had an NSTEMI in September this year for which he was transferred to [facility]. During the catheterization there was found that secondary to anatomy they were unable to place a stent so then he was transferred to [facility] in [place] where he did have a stent placed. He is subsequently discharged home. Since that time he has had chest discomfort. Not every day but most days of the week. Today he woke up with his normal chest discomfort but early this afternoon his chest pain worsened. They called EMS. He received nitro prior to arrival which resolved his discomfort. He did have nitro at home but they did not think about giving him the feels prior to calling EMS. The time my evaluation he was symptom-free. Related Data Home Medications Medication Instructions Recorded Confirmed levothyroxine 75 mcg PO QAM 08/27/18 01/14/21 metformin 500 mg PO BID 08/27/18 01/14/21 amiodarone 200 mg tablet 100 mg PO QAM tab 12/24/18 01/14/21 aspirin 81 mg tablet,delayed 81 mg PO QAM 12/24/18 01/14/21 release finasteride 5 mg PO BEDTIME 07/06/20 01/14/21 atorvastatin 20 mg PO QAM 09/23/20 01/14/21 duloxetine 30 mg PO BEDTIME 09/23/20 01/14/21 esomeprazole magnesium 40 mg PO BID 09/23/20 01/14/21 ondansetron HCl 4 mg PO TID PRN 09/23/20 01/14/21 hydrocodone-acetaminophen 1 tab PO Q6H PRN 10/06/20 01/14/21 clopidogrel [Plavix] 75 mg PO DAILY 01/14/21 01/14/21 glipizide 2.5 mg PO DAILY 01/14/21 01/14/21 ahivnlwcfezu-noukircd-qfzyui 1 tab PO DAILY 01/14/21 01/14/21 [Centrum Silver] Previous Rx's Medication Instructions Recorded nitroglycerin 0.4 mg SL Q5-15M PRN #30 tab 06/29/18 magnesium oxide 400 mg PO BID #180 tab 10/08/20 metoprolol succinate 12.5 mg PO BID #180 tab 10/08/20 Allergies Allergy/AdvReac Type Severity Reaction Status Date / Time Leonbbm-Oyc-Vrq Reductase Allergy Intermediate MUSCLE PAIN Verified 02/06/21 14:29 Inhibitor [[id number] REDUCTASE INHIBITOR] piroxicam [PIROXICAM] Allergy Mild NAUSEA, Verified 02/06/21 14:29 VOMITING dabigatran etexilate AdvReac Hematuria Verified 02/06/21 14:29 Review of Systems Constitutional Constitutional: Reports system reviewed and no additional complaints, except as documented Cardiovascular Cardiovascular: Reports chest pain and Reports dyspnea Respiratory Respiratory: Reports dyspnea Gastrointestinal Gastrointestinal: Reports system reviewed and no additional complaints, except as documented Genitourinary Genitourinary: Reports system reviewed and no additional complaints, except as documented Musculoskeletal Musculoskeletal: Reports system reviewed and no additional complaints, except as documented Integumentary/Breasts Skin/Breast: Reports system reviewed and no additional complaints, except as documented Endocrine Endocrine: Reports system reviewed and no additional complaints, except as documented Hematologic/Lymphatic On Anticoagulants: No Allergic/Immunologic Allergic/Immunologic: Reports system reviewed and no additional complaints, except as documented Patient History Medical History Anxiety CAD (coronary artery disease) DDD (degenerative disc disease), cervical Depression Diabetes Dyslipidemia Dysuria Elevated serum homocysteine level History of angina History of CVA (cerebrovascular accident) History of dizziness History of esophageal reflux History of fatigue History of hematuria Impotence Lumbosacral radiculopathy at L5 Memory deficit Neuropathy of both feet Osteoarthritis Pacemaker (~2013) Paroxysmal A-fib 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 RBBB Renal insufficiency Sick sinus syndrome Sleep apnea (~2012) Spinal stenosis in cervical region Spinal stenosis of lumbar region TIA (transient ischemic attack) Urinary retention Surgical History H/O laminectomy H/O shoulder surgery H/O thumb surgery History of appendectomy History of bladder surgery History of cardiac cath (~2012) History of cholecystectomy (~2012) History of cystoscopy History of lumbar fusion History of tonsillectomy History of vasectomy S/P drug eluting coronary stent placement Status post right foot surgery Social History marital status: details: to [employer], lives in [place] household members: spouse lives independently: Yes caregiver/support person: No housing: house Smoking Status: Never smoker alcohol intake: current substance use type: does not use Smoking Status: Never smoker alcohol intake frequency: holidays/special occasions only Substance Use Type: does not use Exam Initial Vital Signs Initial Vital Signs: Vital Signs Pulse Rate 69 02/06/21 14:25 Respiratory Rate 22 02/06/21 14:25 Pulse Oximetry 99 02/06/21 14:25 Const General: cooperative Limitations: mental status not altered HENMT Head: normal to inspection and normocephalic Resp Effort & Inspection: normal respiratory effort Auscultation: clear to auscultation bilaterally Cardio Rate: regular rate Rhythm: regular rhythm GI Inspection: non-distended Palpation: soft Skin Lesions: no lesions Rashes: no rashes Neuro General: patient alert, patient awake and patient oriented x3 Cognition: normal cognition Speech: speech normal Extrem General: normal to inspection and capillary refill normal Psych Appearance: grossly normal and well kempt Course Orders Ordered: ED Orders 02/06/21 14:15 XR chest 1V Stat EKG-12 Lead Stat 02/06/21 14:19 BNP [NT-proBNP (BNP-Adult 18+)] Stat COVID19 - ADMIT (SURGICAL BRACE MAKER swab/PCR) Stat Complete Blood Count AUTO DIFF Stat Comprehensive Metabolic Panel Stat Lipase Stat Partial Thromboplastin Time Stat Prothrombin Time INR Stat Troponin & CK Cardiac Panel Stat 02/06/21 17:18 Troponin & CK Cardiac Panel Stat Vital Signs Vital signs: Vital Signs - 8 hr 02/06/21 14:25 02/06/21 14:30 02/06/21 14:45 Pulse Rate 69 69 69 Respiratory Rate 21 Blood Pressure 95/53 L Pulse Oximetry 99 97 97 02/06/21 15:00 02/06/21 15:15 02/06/21 15:30 Pulse Rate 69 69 69 Respiratory Rate 30 H 19 23 Blood Pressure 98/69 121/78 Pulse Oximetry 98 99 98 02/06/21 15:45 02/06/21 16:00 02/06/21 16:15 Pulse Rate 69 69 69 Respiratory Rate 22 23 18 Blood Pressure 137/82 Pulse Oximetry 98 98 98 02/06/21 16:30 Pulse Rate 69 Respiratory Rate 24 Blood Pressure 138/73 Pulse Oximetry 96 MDM - Chest Pain Lab Data Attestation: I reviewed the patient's lab results. Result diagrams: 02/06/21 14:19 02/06/21 14:19 Labs: Lab Results 02/06/21 02/06/21 02/06/21 Range/Units 14:19 14:19 14:19 WBC 6.4 (4.5-11.0) X10^3/uL RBC 3.95 L (4.5-5.9) X10^6/uL Hgb 12.0 L (13.5-17.5) g/dL Hct 36.3 L (41-53) % MCV 91.7 (80-100) fL MCH 30.4 (26-34) PG MCHC 33.1 (30-36) % RDW 16.0 H (11.6-14.8) % Plt Count 282 (150-400) X10^3/uL Neut % (Auto) 65.6 (50-75) % Lymph % (Auto) 22.1 L (25-40) % Kane % (Auto) 10.9 (3-14) % Eos % (Auto) 0.7 L (2-4) % Baso % (Auto) 0.7 (0-2) % Neut # (Auto) 4200 (2825-5967) /uL Lymph # (Auto) 1400 (1568-0841) /uL Kane # (Auto) 700 (0-900) /uL Eos # (Auto) 0 (0-450) /uL Baso # (Auto) 0 (0-100) /uL PT 12.0 (10.1-12.7) SECONDS INR 1.1 (0.9-1.3) APTT 28 D (26.4-36.2) SECONDS Sodium 132 L (137-145) mmol/L Potassium 4.8 (3.4-5.1) mmol/L Chloride 97 L (98-107) mmol/L Carbon Dioxide 23 (22-32) mmol/L BUN 20 (9-20) mg/dL Creatinine 1.26 H (0.66-1.25) mg/dL Estimated GFR 54.4 L (>60) mL/min BUN/Creatinine Ratio 15.9 (6-22) Glucose 107 (80-110) mg/dL Calcium 9.8 (8.4-10.2) mg/dL Total Bilirubin 0.3 (0.2-1.3) mg/dL AST 30 (17-59) IU/L ALT 24 (<50) IU/L Alkaline Phosphatase 59 (38-126) U/L Total Creatine Kinase 38 L (55-170) U/L CK-MB (CK-2) TNP CK-MB (CK-2) Rel Index TNP Troponin I < 0.012 (0.01-0.034) ng/mL NT-Pro-B Natriuret Pep 512 H (<450) pg/mL Total Protein 6.7 (6.3-8.2) g/dL Albumin 4.1 (3.5-5.0) g/dL Globulin 2.6 (1.7-4.1) g/dL Albumin/Globulin Ratio 1.6 (1.0-2.8) Lipase 109 (23-300) U/L SARS-CoV-2 (PCR) (Negative) 02/06/21 02/06/21 Range/Units 14:19 17:18 WBC (4.5-11.0) X10^3/uL RBC (4.5-5.9) X10^6/uL Hgb (13.5-17.5) g/dL Hct (41-53) % MCV (80-100) fL MCH (26-34) PG MCHC (30-36) % RDW (11.6-14.8) % Plt Count (150-400) X10^3/uL Neut % (Auto) (50-75) % Lymph % (Auto) (25-40) % Kane % (Auto) (3-14) % Eos % (Auto) (2-4) % Baso % (Auto) (0-2) % Neut # (Auto) (4325-1515) /uL Lymph # (Auto) (5949-5994) /uL Kane # (Auto) (0-900) /uL Eos # (Auto) (0-450) /uL Baso # (Auto) (0-100) /uL PT (10.1-12.7) SECONDS INR (0.9-1.3) APTT (26.4-36.2) SECONDS Sodium (137-145) mmol/L Potassium (3.4-5.1) mmol/L Chloride (98-107) mmol/L Carbon Dioxide (22-32) mmol/L BUN (9-20) mg/dL Creatinine (0.66-1.25) mg/dL Estimated GFR (>60) mL/min BUN/Creatinine Ratio (6-22) Glucose (80-110) mg/dL Calcium (8.4-10.2) mg/dL Total Bilirubin (0.2-1.3) mg/dL AST (17-59) IU/L ALT (<50) IU/L Alkaline Phosphatase (38-126) U/L Total Creatine Kinase 34 L (55-170) U/L CK-MB (CK-2) TNP CK-MB (CK-2) Rel Index TNP Troponin I < 0.012 (0.01-0.034) ng/mL NT-Pro-B Natriuret Pep (<450) pg/mL Total Protein (6.3-8.2) g/dL Albumin (3.5-5.0) g/dL Globulin (1.7-4.1) g/dL Albumin/Globulin Ratio (1.0-2.8) Lipase (23-300) U/L SARS-CoV-2 (PCR) Negative (Negative) Imaging Data Chest x-ray: Radiologist's Impression: [address] [id number] ReportSigned Patient: Sotero Kasper WMR#: [id number]: 5Acct:[id number]/Sex: 85 / MDate of Service: 02/06/21Loc: EDAccession Number: [id number] Procedure: XR chest 1V Ordering Provider: Priya Magdaleno D.O. PROCEDURE: XR CHEST 1V INDICATIONS: chest pain TECHNIQUE: One view of the chest was acquired. COMPARISON: [facility], CT, CT ANGIO CHEST PE PROTOCOL, 01/28/2021, 11:47. [facility], CR, XR CHEST 1V, 01/14/2021, 9:29. [facility], CR, XR CHEST 1V, 01/28/2021, 9:34. FINDINGS: Surgical changes and devices: Cervical spine fixation hardware is seen. A pacer device is seen. The leads are seen in stable positions. Lungs and pleura: Lungs are clear. No pleural effusions or pneumothorax. Mediastinum: Mediastinal contours appear normal. Heart size is normal. Bones and chest wall: Age-appropriate bony degenerative changes are seen. No suspicious bony lesions. Overlying soft tissues appear unremarkable. IMPRESSION: Unremarkable portable chest for age, with note made of postoperative and degenerative change. Dictated by: Good Peña M.D. on 02/06/2021 at 13:32 Approved by: Good Peña M.D. on 02/06/2021 at 13:33 ECG Data Attestation: I personally reviewed and interpreted this ECG as follows: Prior ECG tracings: not available for review Interpretation: Atrially paced Rate is 70 MDM Narrative Medical decision making narrative: Patient has had 2- troponins. Chest x-ray is unremarkable. Paced rhythm on his EKG. Has had angina symptoms since his stent placement in September this year but today things worsen. He does have nitro at home however did not take it today. I did discuss the case with [facility] who recommended that a talk with [facility] where he had his last catheterization. I also talked with the claim manager who did his catheterization back in September who stated that he did not think the patient would require another catheterization lysis troponins were positive. Plan will be is to discharge the patient home. We did discuss the use of nitro at home. He has an appointment with his primary doctor on Monday. He was given return precautions and follow-up instructions. He expressed understanding and agreement. Discharge Plan Departure Patient Disposition: Home Clinical Impression: Chest pain Instructions: DI for Chest Pain Activity Restrictions/Additional Instructions: Recommend that you continue all of your medications as directed. I also recommend that you use the nitro tablets that we discussed. Keep your appointment with your primary doctor on Monday. Return to the emergency department for any new or worsening symptoms Prescriptions: No Action nitroglycerin 0.4 mg tablet, sublingual 0.4 mg SL Q5-15M PRN (Reason: chest pain) Qty: 30 RF: 2 clopidogrel [Plavix] 75 mg Tablet 75 mg PO DAILY RF: 0 glipizide 2.5 mg Tablet Extended Release 24hr 2.5 mg PO DAILY RF: 0 Centrum Silver Tablet 1 tab PO DAILY RF: 0 levothyroxine 75 mcg tablet 75 mcg PO QAM RF: 0 metformin 1,000 mg tablet 500 mg PO BID RF: 0 finasteride 5 mg Tablet 5 mg PO BEDTIME RF: 0 atorvastatin 20 mg tablet 20 mg PO QAM RF: 0 duloxetine 30 mg capsule,delayed release(DR/EC) 30 mg PO BEDTIME RF: 0 ondansetron HCl 4 mg tablet 4 mg PO TID PRN (Reason: nausea) RF: 0 esomeprazole magnesium 40 mg capsule,delayed release(DR/EC) 40 mg PO BID RF: 0 hydrocodone-acetaminophen 5-325 mg Tablet 1 tab PO Q6H PRN (Reason: Pain, Moderate) RF: 0 magnesium oxide 400 mg (241.3 mg magnesium) Tablet 400 mg PO BID Qty: 180 RF: 3 metoprolol succinate 25 mg Tablet Extended Release 24 Hr 12.5 mg PO BID Qty: 180 RF: 3 amiodarone 200 mg tablet 100 mg PO QAM RF: 0 aspirin [Adult Low Dose Aspirin] 81 mg tablet,delayed release (DR/EC) 81 mg PO QAM RF: 0 Referrals: Diane Howard MD [Primary Care Provider] -
[2021-02-06 15:24] LABS: COVID19 - ADMIT (NP swab/PCR) Negative (Negative)
[2021-02-06 17:37] LABS: Creatine Kinase 34 U/L (55-170)
[2021-02-06 17:50] LABS: Troponin I < 0.012 ng/mL (0.01-0.034)
== END 2021-02-06 18:40 | disposition home or self-care (01) ==
PROVIDERS: Emergency Medicine; Emergency Provider Emergency Medicine; PCP Family Medicine
DX: R07.9 Chest pain, unspecified (principal); R06.00 Dyspnea, unspecified; Z20.822 Contact with and (suspected) exposure to COVID-19
CPT/HCPCS: 36415; 71045; 80053; 82550; 83690; 83880; 84484; 85025; 85610; 85730; 87635; 93005; 93010; 99284; C9803

== ENCOUNTER → 2021-03-02 16:48 | Outpatient (CLI) | payer MEDICARE, OTHER, SELFPAY ==
[2021-01-14 13:40] VITALS: BMI 25.2
--- NOTE | 2021-03-02 | DI.RAD.S_ITS ---
PROCEDURE: XR RIBS RT MIN 3V W CXR 1V INDICATIONS: rt rib pain s/p fall TECHNIQUE: Two views ribs were acquired, along with a single view chest. COMPARISON: [facility], CR, XR CHEST 1V, 02/06/2021, 14:17. [facility], CT, CT ANGIO CHEST PE PROTOCOL, 01/28/2021, 11:47. [facility], CR, XR CHEST 1V, 01/28/2021, 9:34. FINDINGS: Surgical changes and devices: Pacemaker and leads appear normal.. Bones and chest wall: No fractures or dislocations. No suspicious bony lesions. Overlying soft tissues appear unremarkable. Lungs and pleura: No pleural effusions or pneumothorax. Lungs appear clear. Mediastinum: Mediastinal contours appear normal. Heart size is normal. IMPRESSION: No rib fracture found. Pacemaker in normal position. Please note that some rib fractures which are nondisplaced may not be accurately detected by initial plain film imaging. If unusual symptomatology persists repeat follow-up rib imaging in 5 days may be warranted. Additionally, nuclear medicine bone scan imaging provides accurate assessment for hidden trauma. Dictated by: Arnaldo Thompson M.D. on 03/03/2021 at 9:53 Approved by: Arnaldo Thompson M.D. on 03/03/2021 at 9:56
== END ==
PROVIDERS: PCP Family Medicine; Referring Provider Family Medicine; Visit Provider Family Medicine
DX: R07.81 Pleurodynia (principal); Z95.0 Presence of cardiac pacemaker
CPT/HCPCS: 71101

== ENCOUNTER 2021-03-14 14:39 | Inpatient (IN) | payer MEDICARE, OTHER, SELFPAY ==
[2021-01-14 13:40] VITALS: BMI 25.2
[2021-03-14] VITALS (15 sets, daily range): BP systolic 128–194; BP diastolic 65–115; PULSE 68–71; RESP 17–24; TEMP 36.2–36.6; O2SAT 96–99; BMI 26.1
--- NOTE | 2021-03-14 14:55 | ED_ITS ---
HPI - Weakness General Chief complaint: Weakness Stated complaint: Weakness & confusion Time Seen by Provider: 03/14/21 14:53 Source: patient, family ( ) and EMS Mode of arrival: EMS Limitations: altered mental status History of Present Illness HPI Narrative: this is an 86-year-old male who is brought by EMS for increasing weakness and confusion. Patient lives at [facility] with his . Patient does have a known history of strokes with some right-sided deficit. Patient also has known atrial fibrillation, cardiac history with a prior NSTEMI and CHF. Patient's states that she noted over the last several weeks he has had some slowly decreasing mentation and appears to have been weaker. the last starting yesterday noticed that he seemed to be significantly worse. There has been somewhat waxing and waning changes in his mental status. She also notes that when she stands him up to transfer to the wheelchair, toilet or similar situations he will seem to pass out. She states sometimes he sort of stiffens in his arms. He will sometimes seemed confused afterwards. Patient has not had any generalized tonic-clonic activity that she describes. EMS did note that his blood pressure was 90 systolic when they arrived. Patient himself has difficulty answering questions here in the department But does attempt both he and his deny any recent fevers, no chest pain or shortness of breath, no nausea or vomiting quite other new GI or urinary symptoms, no headaches. Related Data Home Medications Medication Instructions Recorded Confirmed levothyroxine 75 mcg PO QAM 08/27/18 03/14/21 metformin 500 mg PO BID 08/27/18 03/14/21 amiodarone 200 mg tablet 100 mg PO QAM tab 12/24/18 03/14/21 aspirin 81 mg tablet,delayed 81 mg PO QAM 12/24/18 03/14/21 release finasteride 5 mg PO BEDTIME 07/06/20 03/14/21 atorvastatin 20 mg PO QAM 09/23/20 03/14/21 duloxetine 30 mg PO DAILY 09/23/20 03/14/21 esomeprazole magnesium 40 mg PO BID 09/23/20 03/14/21 ondansetron HCl 4 mg PO TID PRN 09/23/20 03/14/21 hydrocodone-acetaminophen 1 tab PO Q6H PRN 10/06/20 03/14/21 glipizide 2.5 mg PO DAILY 01/14/21 03/14/21 metoprolol succinate 12.5 mg PO BEDTIME 03/14/21 03/14/21 metoprolol succinate 25 mg PO DAILY 03/14/21 03/14/21 ticagrelor [Brilinta] 90 mg PO BID 03/14/21 03/14/21 Previous Rx's Medication Instructions Recorded nitroglycerin 0.4 mg SL Q5-15M PRN #30 tab 06/29/18 magnesium oxide 400 mg PO BID #180 tab 10/08/20 Allergies Allergy/AdvReac Type Severity Reaction Status Date / Time Kqpbfdn-Fkk-Arl Reductase Allergy Intermediate MUSCLE PAIN Verified 02/06/21 14:29 Inhibitor [ONYNQNU-AHO-XVE REDUCTASE INHIBITOR] piroxicam [PIROXICAM] Allergy Mild NAUSEA, Verified 02/06/21 14:29 VOMITING dabigatran etexilate AdvReac Hematuria Verified 02/06/21 14:29 Review of Systems Review of Systems ROS Unobtainable: All systems reviewed & are unremarkable except as noted in HPI and below Patient History Medical History Anxiety CAD (coronary artery disease) DDD (degenerative disc disease), cervical Depression Diabetes Dyslipidemia Dysuria Elevated serum homocysteine level History of angina History of CVA (cerebrovascular accident) History of dizziness History of esophageal reflux History of fatigue History of hematuria Impotence Lumbosacral radiculopathy at L5 Memory deficit Neuropathy of both feet Osteoarthritis Pacemaker (~2013) Paroxysmal A-fib 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 RBBB Renal insufficiency Sick sinus syndrome Sleep apnea (~2012) Spinal stenosis in cervical region Spinal stenosis of lumbar region TIA (transient ischemic attack) Urinary retention Surgical History H/O laminectomy H/O shoulder surgery H/O thumb surgery History of appendectomy History of bladder surgery History of cardiac cath (~2012) History of cholecystectomy (~2012) History of cystoscopy History of lumbar fusion History of tonsillectomy History of vasectomy S/P drug eluting coronary stent placement Status post right foot surgery Social History marital status: details: to Siri, lives in [place] household members: spouse lives independently: Yes caregiver/support person: No housing: house Smoking Status: Never smoker alcohol intake: current substance use type: does not use Smoking Status: Never smoker alcohol intake frequency: holidays/special occasions only Substance Use Type: does not use Exam Narrative Exam Narrative: GEN: well nourished, well appearing male, alert and oriented x 3, patient appears to be in mild distress. HEENT: Atraumatic, pupils are equal round reactive to light, extraocular movements are intact, nares are clear, TMs are clear with no fluid, there is no conjunctival pallor. Throat is clear without any exudates, erythema, tonsillar enlargement or uvular deviation, Patient does not all commands his smile but no obvious facial droop is noted. HEART: Regular rate and rhythm without murmur, clicks, rubs. LUNGS:Lungs clear to auscultation, no wheezes, rales, crackles, chest moves symmetrically, No tachypnea or accessory muscle use. ABD:bowel sounds normal, soft, non-tender, no guarding, rebound, rigidity, no masses noted, no hepatosplenomegaly :No CVA tenderness MSCL: Non-tender, no muscle atrophy, I have to hold patient's arms up for him initially but he is able to hold them without drift for 10 seconds bilaterally. Patient does attempt to lift his legs individually and he can hold for 5 seconds but seems weaker on the left and seems to require more effort. Patient did not follow Commands for pfbaym-[id number] or heel-calderon. NEURO:CN 2-12 intact, sensation normal, speech seems dysarthric but not aphasic. SKIN: No rash or other skin changes noted. Initial Vital Signs Initial Vital Signs: Vital Signs Pulse Rate 70 03/14/21 14:41 Blood Pressure 128/70 03/14/21 14:41 Pulse Oximetry 97 03/14/21 14:41 Scores NIH Stroke Scale Level of Conciousness: Not alert, but arousable by minor stim to obey, answer or respond Ask month/age: Answers neither question correctly, aphasic, stuporous, coma Open/close eyes, close hand: Performs both tasks correctly Best gaze horizontal: Normal Visual hall: No visual loss Facial palsy: Normal symetrical movement Left arm drift: No drift for full 10 sec Right arm drift: No drift for full 10 sec Left leg drift: Drifts down, not to bed Right leg drift: No drift for full 5 sec Limb ataxia: Amputation, joint fusion (did not perform for myself.) Sensory on face/arms/legs: Normal, no sensory loss Best language: Mild to moderate, slurs some words Dysarthria: Severe, unintelligible Extinction or inattention: No abnormality Total NIH Stroke scale score: 7 Course Orders Ordered: ED Orders 03/14/21 14:43 Complete Blood Count AUTO DIFF Stat Comprehensive Metabolic Panel Stat Partial Thromboplastin Time Stat Prothrombin Time INR Stat Troponin & CK Cardiac Panel Stat 03/14/21 14:53 EKG-12 Lead Stat 03/14/21 14:54 CT angio head and neck Stat 03/14/21 15:50 Urinalysis and Microscopic Stat Urine Drug Screen, Rapid Stat 03/14/21 16:35 COVID19 - ADMIT (HATCHERY MANAGER swab/PCR) Stat Acetaminophen (Acetaminophen 325 Mg Tablet) 650 mg PO Q6HR PRN PRN Reason: Fever/Mild Pain (1-3) Amiodarone HCl (Amiodarone 200 Mg Tablet) 100 mg PO DAILY [facility] Last Admin: 03/14/21 19:54 Dose: Not Given Documented by: JOHN Aspirin (Aspirin Ec 81 Mg Tablet) 81 mg PO DAILY [facility] Last Admin: 03/14/21 19:54 Dose: Not Given Documented by: JOHN Atorvastatin Calcium (Atorvastatin 20 Mg Tablet) 20 mg PO DAILY [facility] Last Admin: 03/14/21 19:54 Dose: Not Given Documented by: JOHN Calcium Carbonate (Calcium Carbonate 500 Mg Tab) 1,000 mg PO Q4HR PRN PRN Reason: Dyspepsia Duloxetine HCl (Duloxetine 30 Mg Capsule) 30 mg PO DAILY [facility] Finasteride (Finasteride 5 Mg Tablet) 5 mg PO BEDTIME [facility] Glipizide (Glipizide Xl 2.5 Mg Tab) 2.5 mg PO DAILY [facility] Levothyroxine Sodium (Levothyroxine 75 Mcg Tablet) 75 mcg PO DAILY [facility] Last Admin: 03/14/21 19:54 Dose: Not Given Documented by: JOHN Magnesium Oxide (Magnesium Oxide 400 Mg Tablet) 400 mg PO BID [facility] Metformin HCl (Metformin Hcl 500 Mg Tablet) 500 mg PO BID [facility] Metoprolol Succinate (Metoprolol Er 25 Mg Tablet) 12.5 mg PO BEDTIME [facility] Metoprolol Succinate (Metoprolol Er 25 Mg Tablet) 25 mg PO DAILY [facility] Naloxone HCl (Naloxone 0.4 Mg/Ml Vial) 0.2 mg IV Q2MIN PRN PRN Reason: Opiate Reversal Nitroglycerin (Nitroglycerin 0.4 Mg Sl Tab) 0.4 mg SL Q5M PRN PRN Reason: chest pain Non-Formulary: Ticagrelor [Brilinta ] 90 Mg Tablet 90 mg PO BID [facility] Ondansetron HCl (Ondansetron 4 Mg Odt) 4 mg PO Q8HR PRN PRN Reason: Nausea And Vomiting Pantoprazole Sodium (Pantoprazole Dr 40 Mg Tablet) 40 mg PO BID [facility] Discontinued Medications Sodium Chloride (Normal Saline 0.9%) 1,000 mls @ 150 mls/hr IV CONT [facility] Last Infusion: 03/14/21 18:16 Dose: 0 mls/hr Documented by: Admin: 03/14/21 15:50 Dose: 150 mls/hr Documented by: ATAYLOR Non-Formulary Medication (Esomeprazole Magnesium) 40 mg PO BID [facility] Non-Formulary Medication (Ondansetron Hcl) 4 mg PO TID PRN PRN Reason: nausea Reevaluation(s) Reevaluation #1: Patient speech is more clear at this time. All questions answered with patient and . Consultations Consultation #1: Dr. Pratt accepts for observation. Vital Signs Vital signs: Vital Signs - 8 hr 03/14/21 14:41 03/14/21 14:42 03/14/21 15:00 Pulse Rate 70 70 69 Respiratory Rate 18 24 Blood Pressure 128/70 128/70 138/65 Pulse Oximetry 97 96 97 03/14/21 15:36 03/14/21 16:00 03/14/21 16:15 Pulse Rate 69 69 69 Respiratory Rate 20 22 Blood Pressure 154/88 H Pulse Oximetry 97 98 97 03/14/21 16:30 03/14/21 16:37 03/14/21 17:00 Pulse Rate 69 69 69 Respiratory Rate 24 18 18 Blood Pressure 168/113 H 167/115 H 194/94 H Pulse Oximetry 98 98 97 03/14/21 17:30 03/14/21 18:00 Pulse Rate 69 69 Respiratory Rate 17 21 Blood Pressure 194/91 H 189/90 H Pulse Oximetry 98 97 MDM - Weakness Lab Data Attestation: I reviewed the patient's lab results. Result diagrams: 03/14/21 14:43 03/14/21 14:43 Labs: Lab Results 03/14/21 03/14/21 03/14/21 Range/Units 14:43 14:43 14:43 WBC 5.9 (4.5-11.0) X10^3/uL RBC 4.25 L (4.5-5.9) X10^6/uL Hgb 12.9 L (13.5-17.5) g/dL Hct 39.4 L (41-53) % MCV 92.7 (80-100) fL MCH 30.4 (26-34) PG MCHC 32.8 (30-36) % RDW 15.5 H (11.6-14.8) % Plt Count 317 (150-400) X10^3/uL Neut % (Auto) 67.7 (50-75) % Lymph % (Auto) 19.9 L (25-40) % Nash % (Auto) 10.6 (3-14) % Eos % (Auto) 1.0 L (2-4) % Baso % (Auto) 0.8 (0-2) % Neut # (Auto) 4000 (2822-4995) /uL Lymph # (Auto) 1200 (9036-3352) /uL Nash # (Auto) 600 (0-900) /uL Eos # (Auto) 100 (0-450) /uL Baso # (Auto) 0 (0-100) /uL PT 12.5 (10.1-12.7) SECONDS INR 1.1 (0.9-1.3) APTT 32 (26.4-36.2) SECONDS Sodium 131 L (137-145) mmol/L Potassium 4.8 (3.4-5.1) mmol/L Chloride 98 (98-107) mmol/L Carbon Dioxide 23 (22-32) mmol/L BUN 14 (9-20) mg/dL Creatinine 1.42 H (0.66-1.25) mg/dL Estimated GFR 47.3 L (>60) mL/min BUN/Creatinine Ratio 9.9 (6-22) Glucose 186 H (80-110) mg/dL Calcium 9.5 (8.4-10.2) mg/dL Total Bilirubin 0.6 (0.2-1.3) mg/dL AST 37 (17-59) IU/L ALT 34 (<50) IU/L Alkaline Phosphatase 99 (38-126) U/L Total Creatine Kinase 38 L (55-170) U/L CK-MB (CK-2) TNP CK-MB (CK-2) Rel Index TNP Troponin I < 0.012 (0.01-0.034) ng/mL Total Protein 6.9 (6.3-8.2) g/dL Albumin 4.0 (3.5-5.0) g/dL Globulin 2.9 (1.7-4.1) g/dL Albumin/Globulin Ratio 1.4 (1.0-2.8) Urine Color Urine Appearance Urine pH (4.5-8.0) Ur Specific [place] (1.000-1.035) Urine Protein (Negative) Urine Glucose (UA) (Negative) g/dL Urine Ketones (NEGATIVE) Urine Occult Blood (Negative) Urine Nitrate (Negative) Urine Bilirubin (NEGATIVE) Urine Urobilinogen (0.2) E.U./dL Ur Leukocyte Esterase (NEGATIVE) Urine RBC (0-5/HPF) Urine WBC (0-5/HPF) Ur Squamous Epith Cells (0-5/HPF) Amorphous Sediment Urine Bacteria (None) Urine Mucus (Negative) Ur Culture Indicated? U Opiates 300ng/mL cut (Negative) Ur Oxycodone Screen (Negative) Urine Methadone Screen (Negative) Ur Barbiturates Screen (Negative) U Tricyclic Antidepress (Negative) Ur Phencyclidine Scrn (Negative) Ur Amphetamines Screen (Negative) U Methamphetamines Scrn (Negative) Ur MDMA Scrn (Ecstasy) (Negative) U Benzodiazepines Scrn (Negative) Urine Cocaine Screen (Negative) U Marijuana (THC) Screen (Negative) SARS-CoV-2 (PCR) (Negative) 03/14/21 03/14/21 03/14/21 Range/Units 15:50 15:50 16:35 WBC (4.5-11.0) X10^3/uL RBC (4.5-5.9) X10^6/uL Hgb (13.5-17.5) g/dL Hct (41-53) % MCV (80-100) fL MCH (26-34) PG MCHC (30-36) % RDW (11.6-14.8) % Plt Count (150-400) X10^3/uL Neut % (Auto) (50-75) % Lymph % (Auto) (25-40) % Nash % (Auto) (3-14) % Eos % (Auto) (2-4) % Baso % (Auto) (0-2) % Neut # (Auto) (6536-0882) /uL Lymph # (Auto) (0009-1812) /uL Nash # (Auto) (0-900) /uL Eos # (Auto) (0-450) /uL Baso # (Auto) (0-100) /uL PT (10.1-12.7) SECONDS INR (0.9-1.3) APTT (26.4-36.2) SECONDS Sodium (137-145) mmol/L Potassium (3.4-5.1) mmol/L Chloride (98-107) mmol/L Carbon Dioxide (22-32) mmol/L BUN (9-20) mg/dL Creatinine (0.66-1.25) mg/dL Estimated GFR (>60) mL/min BUN/Creatinine Ratio (6-22) Glucose (80-110) mg/dL Calcium (8.4-10.2) mg/dL Total Bilirubin (0.2-1.3) mg/dL AST (17-59) IU/L ALT (<50) IU/L Alkaline Phosphatase (38-126) U/L Total Creatine Kinase (55-170) U/L CK-MB (CK-2) CK-MB (CK-2) Rel Index Troponin I (0.01-0.034) ng/mL Total Protein (6.3-8.2) g/dL Albumin (3.5-5.0) g/dL Globulin (1.7-4.1) g/dL Albumin/Globulin Ratio (1.0-2.8) Urine Color Yellow Urine Appearance Clear Urine pH 7.0 (4.5-8.0) Ur Specific [place] 1.010 (1.000-1.035) Urine Protein Negative (Negative) Urine Glucose (UA) Negative (Negative) g/dL Urine Ketones Negative (NEGATIVE) Urine Occult Blood Negative (Negative) Urine Nitrate Negative (Negative) Urine Bilirubin Negative (NEGATIVE) Urine Urobilinogen 0.2 (0.2) E.U./dL Ur Leukocyte Esterase Negative (NEGATIVE) Urine RBC None seen (0-5/HPF) Urine WBC 0-1/hpf (0-5/HPF) Ur Squamous Epith Cells 0-1 /hpf (0-5/HPF) Amorphous Sediment 1+ Urine Bacteria None seen (None) Urine Mucus 1+ H (Negative) Ur Culture Indicated? Cult not indicated U Opiates 300ng/mL cut Negative (Negative) Ur Oxycodone Screen Negative (Negative) Urine Methadone Screen Negative (Negative) Ur Barbiturates Screen Negative (Negative) U Tricyclic Antidepress Negative (Negative) Ur Phencyclidine Scrn Negative (Negative) Ur Amphetamines Screen Negative (Negative) U Methamphetamines Scrn Negative (Negative) Ur MDMA Scrn (Ecstasy) Negative (Negative) U Benzodiazepines Scrn Negative (Negative) Urine Cocaine Screen Negative (Negative) U Marijuana (THC) Screen Negative (Negative) SARS-CoV-2 (PCR) Negative (Negative) Urine Dip Bedside Urine Glucose Negative Bedside Urine Bilirubin - Negative Bedside Urine Ketone - Negative Urine Specific [place] 1.015 Bedside Urine Occult Blood - Negative Bedside Urine pH 7.0 Bedside Urine Protein - Negative Bedside Urine Urobilinogen - Negative Bedside Urine Nitrite - Negative Bedside Urine Leukocytes - Negative Esterase Imaging Data CTA - brain/neck: Radiologist Impression: [address] [id number] Scan ReportSigned Patient: Sotero Kasper WMR#: [id number]: 5Acct:[id number]/Sex: 86 / MDate of Service: 03/14/21Loc: EDAccession Number: [id number] Procedure: CT angio head and neck Ordering Provider: Priya Magdaleno D.O. PROCEDURE: CT ANGIO HEAD AND NECK INDICATIONS: weakness, left leg, confusion yesterday TECHNIQUE: Pre-contrast 4.5 mm thick sections acquired from the foramen magnum to the verte x. After the administration of intravenous contrast, 1 mm thick sections acquired from the aortic arch through the [place] of [place]. Post-contrast 4.5 mm thick sections then re- acquired from the foramen magnum to the vertex. 3-dimensional vfmxiia-vhqecpafb-nmcelfzgwn (MIP) and/or volume rendering reformats were acquired of the central intracranial vasculature and neck separately. COMPARISON: [facility], CT, CT ANGIO HEAD AND NECK, 01/14/2021, 19:22. FINDINGS: Image quality: Excellent. BRAIN: CSF spaces: Ventricles are normal in size and shape. Basal cisterns are patent. No extra-axial fluid collections. Brain: No midline shift. No intracranial bleeds or masses. Luciano-white matter interface appears intact. Age-related volume loss and moderate to severe small vessel ischemic change. Bilateral old basal ganglia lacunar infarcts and old left deep white matter lacunar infarct. Skull and face: Calvarium and facial bones appear intact, without suspicious lesions. Orbits appear normal. Sinuses: Sinuses and mastoids are clear. HEAD CT ANGIOGRAPHY: Anterior circulation: Intracranial internal carotid arteries are normal in size and flow. Mild right cavernous carotid narrowing. The flow within the paired anterior cerebral arteries is normal and symmetric. The flow within the middle cerebral arteries is normal and symmetric. The anterior communicating artery is seen. No stenosis or occlusion or focal filling defect. No aneurysms are seen. Posterior circulation: Right vertebral artery is diffusely diminutive and ends in PICA. Left vertebral artery is dominant and patent and is rise to a patent basilar artery. Flow within the posterior cerebral arteries is normal and symmetric. No aneurysms are seen. No stenosis, occlusions, or focal filling defects. NECK CT ANGIOGRAPHY: Carotid system: The great vessels demonstrate a bovine arch anatomy as they arise from the aortic arch. The origins of the common carotid arteries appear patent. The common carotid arteries demonstrate normal caliber and courses. Calcified stenosis of the left carotid bifurcation and proximal internal carotid artery, estimated at between 80 and 90%. No significant right internal carotid artery stenosis. Posterior circulation: Diffusely diminutive right vertebral artery ending in PICA, normal variant. Dominant left vertebral artery giving rise to a normal appearing basilar artery. Soft tissues: Visualized neck soft tissues demonstrate no suspicious abnormalities. Bones: No suspicious bony lesions. Visualized cervical spine appears normally aligned. IMPRESSION: 1. No evidence acute stroke, hemorrhage, or mass. 2. Age-related volume loss, moderate to severe small vessel ischemic change, bilateral old lacunar infarctions. 3. High-grade calcified left carotid bifurcations/proximal internal carotid artery stenosis again noted, estimated between 80 and 90%. 4. Normal variant diminutive right vertebral artery ending in PICA. 5. Mild right cavernous carotid stenosis. 6. No significant intracranial stenosis, occlusion, focal filling defect, or aneurysm. Comment: Findings were discussed with Dr. Magdaleno at the time of study dictation on 03/14/2021 at 1509 hours [place] daylight time. Any quantitative measurements of stenosis were performed using NASCET criteria. Dictated by: Ru Cheatham M.D. on 03/14/2021 at 15:04 Approved by: Ru Cheatham M.D. on 03/14/2021 at 15:16 ECG Data Attestation: I personally reviewed and interpreted this ECG as follows: Interpretation: atrial paced rhythm with prolonged AV conduction. Right bundle-branch cleared rate of 70 P are 326 QRS of 178 QTC 524. Patient has prior EKG from 02/06/2021 which appears similar. MDM Narrative Medical decision making narrative: 86-year-old male with possible stroke, difficult to ascertain clear NIH scale and patient's symptoms have been somewhat of all Ordas and waxing and waning over time. He is far outside the window for tPA if he is a candidate. Patient also has been having what sounds like possible syncopal episodes, seizures or cardiac arrhythmias. Patient's notes that when she stands some of P seems to pass out. He was noted to be hypotensive by EMS and his states his pressures have been very labile. Patient here in the department has had slowly rising blood pressure. CT angiography shows chronic changes with chronic occlusion and no acute new changes. Patient labs do not show any clear cause for his symptoms today and discussed with Dr. Pratt who kindly accepts to keep the patient for observation. Discharge Plan Departure Patient Disposition: Admitted as Observation Clinical Impression: Weakness Admit Date/Time: 03/14/21 18:04 Admit Provider: Tabitha Pratt
[2021-03-14 15:09] LABS: Add Manual Diff / Slide Review NO; Basophils Absolute Auto 0 /uL (0-100); Basophils Percent Auto 0.8 % (0-2); Eosinophils Absolute Auto 100 /uL (0-450); Hematocrit 39.4 % (41-53); Hemoglobin 12.9 g/dL (13.5-17.5); INR 1.1 (0.9-1.3); Lymphocytes Absolute Auto 1200 /uL (1100-4500); Lymphocytes Percent Auto 19.9 % (25-40); Mean Corpuscular HGB Conc 32.8 % (30-36); Mean Corpuscular Hemoglobin 30.4 PG (26-34); Mean Corpuscular Volume 92.7 fL (80-100); Monocytes Absolute Auto 600 /uL (0-900); Monocytes Percent Auto 10.6 % (3-14); Neutrophils Absolute Auto 4000 /uL (1500-7000); Neutrophils Percent Auto 67.7 % (50-75); Platelet Count 317 X10^3/uL (150-400); Prothrombin Time 12.5 SECONDS (10.1-12.7); Red Blood Cell Count 4.25 X10^6/uL (4.5-5.9); Red Cell Distribution Width 15.5 % (11.6-14.8); White Blood Cell Count 5.9 X10^3/uL (4.5-11.0)
[2021-03-14 15:12] LABS: PTT Partial Thromboplastin Tim 32 SECONDS (26.4-36.2)
[2021-03-14 15:13] LABS: Alanine Aminotransferase 34 IU/L (<50); Albumin Globulin Ratio 1.4 (1.0-2.8); Alkaline Phosphatase 99 U/L (38-126); Aspartate Aminotransferase 37 IU/L (17-59); BUN Creatinine Ratio 9.9 (6-22); Bilirubin Total 0.6 mg/dL (0.2-1.3); Blood Urea Nitrogen 14 mg/dL (9-20); Calcium 9.5 mg/dL (8.4-10.2); Carbon Dioxide 23 mmol/L (22-32); Chloride 98 mmol/L (98-107); Creatine Kinase 38 U/L (55-170); Estimated Glomerular Filt Rate 47.3 mL/min (>60); Globulin 2.9 g/dL (1.7-4.1); Glucose 186 mg/dL (80-110); HEMOLYSIS 16 (0-50); Potassium 4.8 mmol/L (3.4-5.1); Sodium 131 mmol/L (137-145); Total Protein 6.9 g/dL (6.3-8.2)
[2021-03-14 15:25] LABS: Troponin I < 0.012 ng/mL (0.01-0.034)
[2021-03-14] MEDS: SODIUM CHLORIDE 0.9% 1,000 ML 150 ML IV (15:50)
[2021-03-14 16:07] LABS: Bacteria Urine None Seen; RBC Urine None Seen (0-5/HPF)
[2021-03-14 16:08] LABS: Appearance Urine UA CLEAR; Bilirubin Urine UA NEGATIVE (NEGATIVE); Color Urine UA YELLOW; Glucose Urine UA NEGATIVE (Negative); Ketones Urine UA NEGATIVE (NEGATIVE); Leukocyte Esterase Urine UA NEGATIVE (NEGATIVE); Nitrite Urine UA NEGATIVE (Negative); Occult Blood Urine UA NEGATIVE (Negative); Protein Urine UA NEGATIVE (Negative); Urobilinogen Urine UA 0.2 E.U./dL (0.2)
[2021-03-14 16:11] LABS: UR Morphine/Opiate cutoff 300 Negative (Negative); Ur Creatinine Normal (Normal); Ur Specific Gravity Normal (Normal); Urine Amphetamines Negative (Negative); Urine Barbiturates Negative (Negative); Urine Benzodiazepines Negative (Negative); Urine Cocaine Negative (Negative); Urine MDMA Negative (Negative); Urine Methadone Negative (Negative); Urine Methamphetamines Negative (Negative); Urine Oxycodone Negative (Negative); Urine Phencyclidine Negative (Negative); Urine Tetrahydrocannabinol Negative (Negative); Urine Tricyclic Antidepressant Negative (Negative); Urine pH Normal (Normal)
[2021-03-14 16:20] LABS: Amorphous Sediment Urine 1+; Mucus Urine 1+ (Negative); Squamous Epithelial Cell Urine 0-1 /HPF (0-5/HPF); WBC Urine 0-1/HPF (0-5/HPF)
[2021-03-14 16:21] LABS: Culture Indicated Urine Cult Not Indicated
[2021-03-14 17:44] LABS: COVID19 - ADMIT (NP swab/PCR) Negative (Negative)
--- NOTE | 2021-03-14 18:38 | PM.HP.1 ---
History of Present Illness History of Present Illness Date Patient Seen: 03/14/21 Time Patient Seen: 18:38 Chief complaint: Weakness & confusion Narrative: 86 yo male patient of Dr. Howard'yesika is admitted from the ED secondary to increased confusion, worsening speech, and new left-sided weakness that has now resolved on the floor and he is back to his baseline with a NIH stroke scale of 0. 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 He had no residual deficit after tPA administration. reported to the ED physician today that his symptoms had been going on for more than a day so he was outside the window for tPA administration. EMS recorded initial systolic pressure of 90 but he became hypertensive in the ED with sytolics into the 190s. Vital signs upon presentation to the ED included a pulse of 70, blood pressure 128/70, respirations 18, and O2 saturation 97% on room air. Pertinent labs included a normocytic/normochromic anemia with a hemoglobin/ hematocrit of 12.9/39.4. Sodium at baseline, 131. Creatinine elevated at 1.42; baseline 1.2. Glucose elevated at 186. CT angiogram head/neck notably negative for acute stroke. He again showed 80-90% stenosis of the left carotid artery and mild stenosis of the right carotid artery. Patient History Medical History Anxiety CAD (coronary artery disease) DDD (degenerative disc disease), cervical Depression Diabetes Dyslipidemia Dysuria Elevated serum homocysteine level History of angina History of CVA (cerebrovascular accident) History of dizziness History of esophageal reflux History of fatigue History of hematuria Impotence Lumbosacral radiculopathy at L5 Memory deficit Neuropathy of both feet Osteoarthritis Pacemaker (~2013) Paroxysmal A-fib 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 RBBB Renal insufficiency Sick sinus syndrome Sleep apnea (~2012) Spinal stenosis in cervical region Spinal stenosis of lumbar region TIA (transient ischemic attack) Urinary retention Surgical History H/O laminectomy H/O shoulder surgery H/O thumb surgery History of appendectomy History of bladder surgery History of cardiac cath (~2012) History of cholecystectomy (~2012) History of cystoscopy History of lumbar fusion History of tonsillectomy History of vasectomy S/P drug eluting coronary stent placement Status post right foot surgery Family & Social History Social History: household members spouse lives independently Yes caregiver/support person No Safety & Behavioral: Feels Safe in Current Yes Environment Been Physically Hurt or No Threatened By a Person Tobacco & Substance use: Smoking Status Never smoker alcohol intake current alcohol intake frequency holiday/special occasion Substance Use Type does not use Meds Home Medications and Allergies Home Medications Medication Instructions Recorded Confirmed Type nitroglycerin 0.4 mg SL Q5-15M PRN #30 tab 06/29/18 03/14/21 Rx levothyroxine 75 mcg PO QAM 08/27/18 03/14/21 History metformin 500 mg PO BID 08/27/18 03/14/21 History amiodarone 200 mg tablet 100 mg PO QAM tab 12/24/18 03/14/21 History aspirin 81 mg tablet,delayed 81 mg PO QAM 12/24/18 03/14/21 History release finasteride 5 mg PO BEDTIME 07/06/20 03/14/21 History atorvastatin 20 mg PO QAM 09/23/20 03/14/21 History duloxetine 30 mg PO DAILY 09/23/20 03/14/21 History esomeprazole magnesium 40 mg PO BID 09/23/20 03/14/21 History ondansetron HCl 4 mg PO TID PRN 09/23/20 03/14/21 History hydrocodone-acetaminophen 1 tab PO Q6H PRN 10/06/20 03/14/21 History magnesium oxide 400 mg PO BID #180 tab 10/08/20 03/14/21 Rx glipizide 2.5 mg PO DAILY 01/14/21 03/14/21 History metoprolol succinate 12.5 mg PO BEDTIME 03/14/21 03/14/21 History metoprolol succinate 25 mg PO DAILY 03/14/21 03/14/21 History ticagrelor [Brilinta] 90 mg PO BID 03/14/21 03/14/21 History Allergies Allergy/AdvReac Type Severity Reaction Status Date / Time Ezafpge-Khb-Bge Reductase Allergy Intermediate MUSCLE PAIN Verified 02/06/21 14:29 Inhibitor [[id number] REDUCTASE INHIBITOR] piroxicam [PIROXICAM] Allergy Mild NAUSEA, Verified 02/06/21 14:29 VOMITING dabigatran etexilate AdvReac Hematuria Verified 02/06/21 14:29 Review of Systems Review of Systems ROS: Yes All systems reviewed with the patient and are negative except as otherwise documented Exam Vital Signs (past 8 hours): - 03/14/21 14:41 03/14/21 14:42 03/14/21 15:00 Pulse Rate 70 70 69 Respiratory Rate 18 24 Blood Pressure 128/70 128/70 138/65 Pulse Oximetry 97 96 97 03/14/21 15:36 03/14/21 16:00 03/14/21 16:15 Pulse Rate 69 69 69 Respiratory Rate 20 22 Blood Pressure 154/88 H Pulse Oximetry 97 98 97 03/14/21 16:30 03/14/21 16:37 03/14/21 17:00 Pulse Rate 69 69 69 Respiratory Rate 24 18 18 Blood Pressure 168/113 H 167/115 H 194/94 H Pulse Oximetry 98 98 97 03/14/21 17:30 03/14/21 18:00 Pulse Rate 69 69 Respiratory Rate 17 21 Blood Pressure 194/91 H 189/90 H Pulse Oximetry 98 97 Oxygen Delivery Method Room Air Narrative Exam Narrative: GENERAL: Alert and oriented, appearing stated age and in no acute distress, tired. HEENT: Head normocephalic/atraumatic. Pupils equal, round, and reactive to light and accomodation. Extraocular muscles intact. Tympanic membranes clear. Nasal mucosa moist, septum midline. Oral mucosa moist, no lesions. Neck soft and supple, no lymphadenopathy. LUNGS: Clear to ausculation bilaterally, no wheezes, rhonchi or rales. CV: Irregularly irregular, no audible murmurs, rubs or gallops. ABDOMEN: Soft, non-tender, non-distended, no organomegaly. Positive bowel sounds. EXTREMITIES: No clubbing, cyanosis, or edema. NEURO: Cranial nerves II through XII grossly intact, no focal deficits. Finger to nose and heel to calderon testing negative. Strength 5/5, symmetric. PSYCH: Alert and oriented x 3. SKIN: No concerning lesions. Objective Labs Result Diagrams: 03/14/21 14:43 03/14/21 14:43 Labs: Laboratory Results - last 24 hr 03/14/21 03/14/21 03/14/21 14:43 14:43 14:43 WBC 5.9 RBC 4.25 L Hgb 12.9 L Hct 39.4 L MCV 92.7 MCH 30.4 MCHC 32.8 RDW 15.5 H Plt Count 317 Neut % (Auto) 67.7 Lymph % (Auto) 19.9 L [place] % (Auto) 10.6 Eos % (Auto) 1.0 L Baso % (Auto) 0.8 Neut # (Auto) 4000 Lymph # (Auto) 1200 [place] # (Auto) 600 Eos # (Auto) 100 Baso # (Auto) 0 PT 12.5 INR 1.1 APTT 32 Sodium 131 L Potassium 4.8 Chloride 98 Carbon Dioxide 23 BUN 14 Creatinine 1.42 H Estimated GFR 47.3 L BUN/Creatinine Ratio 9.9 Glucose 186 H Calcium 9.5 Total Bilirubin 0.6 AST 37 ALT 34 Alkaline Phosphatase 99 Total Creatine Kinase 38 L CK-MB (CK-2) TNP CK-MB (CK-2) Rel Index TNP Troponin I < 0.012 Total Protein 6.9 Albumin 4.0 Globulin 2.9 Albumin/Globulin Ratio 1.4 Urine Color Urine Appearance Urine pH Ur Specific [place] Urine Protein Urine Glucose (UA) Urine Ketones Urine Occult Blood Urine Nitrate Urine Bilirubin Urine Urobilinogen Ur Leukocyte Esterase Urine RBC Urine WBC Ur Squamous Epith Cells Amorphous Sediment Urine Bacteria Urine Mucus Ur Culture Indicated? U Opiates 300ng/mL cut Ur Oxycodone Screen Urine Methadone Screen Ur Barbiturates Screen U Tricyclic Antidepress Ur Phencyclidine Scrn Ur Amphetamines Screen U Methamphetamines Scrn Ur MDMA Scrn (Ecstasy) U Benzodiazepines Scrn Urine Cocaine Screen U Marijuana (THC) Screen SARS-CoV-2 (PCR) 03/14/21 03/14/21 03/14/21 15:50 15:50 16:35 WBC RBC Hgb Hct MCV MCH MCHC RDW Plt Count Neut % (Auto) Lymph % (Auto) [place] % (Auto) Eos % (Auto) Baso % (Auto) Neut # (Auto) Lymph # (Auto) [place] # (Auto) Eos # (Auto) Baso # (Auto) PT INR APTT Sodium Potassium Chloride Carbon Dioxide BUN Creatinine Estimated GFR BUN/Creatinine Ratio Glucose Calcium Total Bilirubin AST ALT Alkaline Phosphatase Total Creatine Kinase CK-MB (CK-2) CK-MB (CK-2) Rel Index Troponin I Total Protein Albumin Globulin Albumin/Globulin Ratio Urine Color Yellow Urine Appearance Clear Urine pH 7.0 Ur Specific [place] 1.010 Urine Protein Negative Urine Glucose (UA) Negative Urine Ketones Negative Urine Occult Blood Negative Urine Nitrate Negative Urine Bilirubin Negative Urine Urobilinogen 0.2 Ur Leukocyte Esterase Negative Urine RBC None seen Urine WBC 0-1/hpf Ur Squamous Epith Cells 0-1 /hpf Amorphous Sediment 1+ Urine Bacteria None seen Urine Mucus 1+ H Ur Culture Indicated? Cult not indicated U Opiates 300ng/mL cut Negative Ur Oxycodone Screen Negative Urine Methadone Screen Negative Ur Barbiturates Screen Negative U Tricyclic Antidepress Negative Ur Phencyclidine Scrn Negative Ur Amphetamines Screen Negative U Methamphetamines Scrn Negative Ur MDMA Scrn (Ecstasy) Negative U Benzodiazepines Scrn Negative Urine Cocaine Screen Negative U Marijuana (THC) Screen Negative SARS-CoV-2 (PCR) Negative Assessment & Plan Assessment & Plan narrative: 1. Altered consciousness, suspect TIA Plan: Reassuring that patient has had a negative CTA head/neck for acute CVA with no new changes and that NIH stroke scale is now zero. As he has a pacemaker, cannot order an MRI but will proceed with an echo tomorow to complete his stroke workup. Will continue with telemetry and close observation. He is already on atorvastatin. Blood pressure was initially low on presentation but now elevated, will allow for permissive blood pressure overnight and anticipate that he will drop while he sleeps as he has done this in the past due to his orthostatic hypotension dysautonomic syndrome. Continue aspirin 81 mg p.o. q.day. 2. History of CVA/TIA Plan: Please see #1. 3. Hyperlipidemia, chronic Plan: Continue home atorvastatin 20 mg p.o. q.h.s.. 4. Atrial fibrillation, paroxysmal Plan: Continue amiodarone 100 mg p.o. b.i.d., metoprolol 25 mg PO qam and 12.5 mg PO qhs and aspirin 81 mg p.o. q.day. Telemetry. Dr. Arteaga, cardiology consulting as outpatient. Due to patient's left atrial occlusion, does not need to be on anticoagulation. 5. Diabetes mellitus type 2 Plan: Diabetic diet, continue home metformin and glipizide. 6. Hypothyroidism Plan: Continue home levothyroxine 75 mcg p.o. q.day 7. Benign prostatic hypertrophy with urinary retention, chronic Plan: Continue finasteride 5 mg p.o. q.h.s.. 8. Coronary artery disease, chronic Plan: Continue, brilinta and statin as noted above. Nitro as needed. 9. Acute renal insufficiency -Cr 1.42 on admission Plan: Will trend labs. 10. History of arrhythmia with sick sinus syndrome and high-grade AV block, pacemaker since 2013 Plan: Avoiding MRI. 11. Hypoomagnesemia Plan: Continue magnesium 400 mg p.o. b.i.d. Will trend labs. 12. Depression/anxiety Plan: Continue home duloxetine 30 mg p.o. qd. 13. Anemia, normocytic / normochromic, chronic Plan: Likely anemia of chronic disease, will treat underlying diseases. 14. Hyponatremia, chronic, at baseline. Plan: Will trend labs. DVT prophylaxis: SCDs Code status: DNR/DNI COVID: Negative Disposition: Anticipate discharge tomorrow if echo unremarkable.
--- NOTE | 2021-03-14 19:11 | DI.ECHO.S_ITS ---
[facility] +---------+ : : [address] : : : : [id number] : : : : Phone: [phone]+ Echocardiogram Report + + :Name: KENNETH PEREZ Study Date: 03/15/2021 Height: 68 in : :[facility] ReadingLocation: Weight: 172 lb : : Gender: Male BSA: 1.9 m2 : :: 1935 Age: 86 yrs BP: 137/74 mmHg: :Reason For Study: H/O CVA, NEW ONSET CONFUSION : :Ordering Physician: SERENA, : :AMBER Performed By: Madelaine Ray : :Referring: AMBER LYONS : + + Interpretation Summary Limited study. Normal left ventricle size with ejection fraction 50-55%. Comparison is made with the echocardiogram of 01/11/2021, LV function has improved slightly from improved septal motion. Procedure: The study quality was technically adequate. A two-dimensional transthoracic echocardiogram with color flow and Doppler was performed in limited views only to assess ejection fraction.. Comparison is made with the echocardiogram of 01/11/2021. Left Ventricle: The left ventricle is normal in size. There is no thrombus. The ejection fraction is estimated to be 50-55%. Septal motion is consistent with conduction abnormality. There are no other obvious focal wall motion abnormalities. Right Ventricle: The right ventricle is normal in size and function. Atria: The left atrial size is normal. Right atrial size is normal. There is no Doppler evidence for an interatrial shunt. Aortic Valve: The aortic valve is trileaflet. Great Vessels: The IVC is of normal diameter and collapses greater than 50% with a sniff. This suggests a low right atrial pressure of 3 mm Hg. Pericardium/ Pleura There is no pericardial effusion. There is no pleural effusion. MMode/2D Measurements & Calculations LVIDd: 4.3 cm LA A2 area: 19.0 cm2 LVIDs: 3.3 cm LA A4 area: 19.8 cm2 FS: 23.8 % LA length (vol): 5.8 cm IVSd: 1.5 cm LA vol: 55.4 ml LVPWd: 1.2 cm LA vol index: 28.9 ml/m2 LV ortega. diameter/BSA (cm/m^2): 2.2 LV sys. diameter/BSA (cm/m^2): 1.7 RA long axis: 5.1 cm RVD1 (basal): 3.9 cm RA area: 15.6 cm2 TAPSE: 1.5 cm RA vol: 40.1 ml RA : 20.9 ml/m2 IVC diam: 1.1 cm Electronically signed by: Bibi Polanco on Reading Physician:03/15/2021 06:15 PM
[2021-03-14] MEDS: PANTOPRAZOLE DR 40 MG TABLET PO (21:27)
[2021-03-14] MEDS: METOPROLOL ER 25 MG TABLET 12.5 MG PO (21:27)
[2021-03-14] MEDS: METFORMIN HCL 500 MG TABLET PO (21:27)
[2021-03-14] MEDS: MAGNESIUM OXIDE 400 MG TABLET PO (21:27)
[2021-03-14] MEDS: FINASTERIDE 5 MG TABLET PO (21:28)
[2021-03-14] MEDS: SODIUM CHLORIDE 0.9% FLUSH 10 ML IV (21:29)
[2021-03-15] VITALS (9 sets, daily range): BP systolic 122–176; BP diastolic 74–91; PULSE 65–76; RESP 14–18; TEMP 36.4–36.8; O2SAT 96–99
[2021-03-15 06:29] LABS: BUN Creatinine Ratio 9.2 (6-22); Blood Urea Nitrogen 13 mg/dL (9-20); Calcium 9.8 mg/dL (8.4-10.2); Carbon Dioxide 25 mmol/L (22-32); Chloride 98 mmol/L (98-107); Estimated Glomerular Filt Rate 47.3 mL/min (>60); Glucose 162 mg/dL (80-110); HEMOLYSIS < 15 (0-50); Potassium 5.1 mmol/L (3.4-5.1); Sodium 130 mmol/L (137-145)
[2021-03-15 06:35] LABS: Add Manual Diff / Slide Review NO; Basophils Absolute Auto 100 /uL (0-100); Basophils Percent Auto 0.8 % (0-2); Eosinophils Absolute Auto 100 /uL (0-450); Eosinophils Percent Auto 1.1 % (2-4); Hematocrit 38.1 % (41-53); Hemoglobin 12.6 g/dL (13.5-17.5); Lymphocytes Absolute Auto 1700 /uL (1100-4500); Lymphocytes Percent Auto 22.9 % (25-40); Mean Corpuscular Hemoglobin 30.7 PG (26-34); Mean Corpuscular Volume 93.1 fL (80-100); Monocytes Absolute Auto 800 /uL (0-900); Neutrophils Absolute Auto 4800 /uL (1500-7000); Neutrophils Percent Auto 64.2 % (50-75); Platelet Count 287 X10^3/uL (150-400); Red Cell Distribution Width 15.2 % (11.6-14.8); White Blood Cell Count 7.5 X10^3/uL (4.5-11.0)
--- NOTE | 2021-03-15 08:31 | P.PN_ITS ---
Subjective Subjective Date Patient Seen: 03/15/21 Time Patient Seen: 08:32 Interval history: patient had unremarkable night. No further neurologic symptoms. Awaiting echo. On telemetry with no concerning a arrhythmias. Pacemaker in place. Patient has had decreased appetite. He had a normal formed bowel movement today. He has been very sleepy today is more alert than previous. Reviewed patient chart. Reviewed workup thus far. Reviewed labs CT scans. Pat ient with a progressive history since December of increasing fatigue and somnolence as well as weakness. More marked over the last 3 days which prompted them to seek care at the emergency room. Patient initially found to be hypertensive now is normotensive. Patient had episode of chest pain the night prior to admission at midnight and then again at 3 and received 1 nitroglycerin with resolution of his symptoms. He has not had any further symptoms. He is not having any shortness of breath. Exam Vital Signs (past 8 hours): - 03/15/21 03:52 03/15/21 07:50 Temperature 97.9 F 97.7 F Pulse Rate 65 70 Respiratory Rate 14 16 Blood Pressure 153/91 H 122/77 Pulse Oximetry 96 98 Oxygen Delivery Method Room Air Oxygen Flow Rate 0 Narrative Exam Narrative: Patient is sleepy. He is alert to person and year members who I am. He knows it is Monday but he thinks it is 2000 and he is unable to tell me the month. He knows he is in a in a [place] but was not able to say that he was in the hospital. He is cooperative and calm. HEENT is unremarkable Neck: Supple without adenopathy, thyromegaly or bruits Chest: Clear to auscultation without wheezes rhonchi or crackles Cor: Irregularly irregular rhythm with well-controlled rate Abdomen: Positive bowel sounds, soft, nontender, nondistended Extremities: No edema pulses intact Slow to respond to commands but no focal deficit Objective Labs Result Diagrams: 03/15/21 05:39 03/15/21 05:39 Labs: Laboratory Results - last 24 hr 03/14/21 03/14/21 03/14/21 14:43 14:43 14:43 WBC 5.9 RBC 4.25 L Hgb 12.9 L Hct 39.4 L MCV 92.7 MCH 30.4 MCHC 32.8 RDW 15.5 H Plt Count 317 Neut % (Auto) 67.7 Lymph % (Auto) 19.9 L [place] % (Auto) 10.6 Eos % (Auto) 1.0 L Baso % (Auto) 0.8 Neut # (Auto) 4000 Lymph # (Auto) 1200 [place] # (Auto) 600 Eos # (Auto) 100 Baso # (Auto) 0 PT 12.5 INR 1.1 APTT 32 Sodium 131 L Potassium 4.8 Chloride 98 Carbon Dioxide 23 BUN 14 Creatinine 1.42 H Estimated GFR 47.3 L BUN/Creatinine Ratio 9.9 Glucose 186 H Calcium 9.5 Magnesium Total Bilirubin 0.6 AST 37 ALT 34 Alkaline Phosphatase 99 Total Creatine Kinase 38 L CK-MB (CK-2) TNP CK-MB (CK-2) Rel Index TNP Troponin I < 0.012 Total Protein 6.9 Albumin 4.0 Globulin 2.9 Albumin/Globulin Ratio 1.4 Urine Color Urine Appearance Urine pH Ur Specific [place] Urine Protein Urine Glucose (UA) Urine Ketones Urine Occult Blood Urine Nitrate Urine Bilirubin Urine Urobilinogen Ur Leukocyte Esterase Urine RBC Urine WBC Ur Squamous Epith Cells Amorphous Sediment Urine Bacteria Urine Mucus Ur Culture Indicated? U Opiates 300ng/mL cut Ur Oxycodone Screen Urine Methadone Screen Ur Barbiturates Screen U Tricyclic Antidepress Ur Phencyclidine Scrn Ur Amphetamines Screen U Methamphetamines Scrn Ur MDMA Scrn (Ecstasy) U Benzodiazepines Scrn Urine Cocaine Screen U Marijuana (THC) Screen SARS-CoV-2 (PCR) 03/14/21 03/14/21 03/14/21 15:50 15:50 16:35 WBC RBC Hgb Hct MCV MCH MCHC RDW Plt Count Neut % (Auto) Lymph % (Auto) [place] % (Auto) Eos % (Auto) Baso % (Auto) Neut # (Auto) Lymph # (Auto) [place] # (Auto) Eos # (Auto) Baso # (Auto) PT INR APTT Sodium Potassium Chloride Carbon Dioxide BUN Creatinine Estimated GFR BUN/Creatinine Ratio Glucose Calcium Magnesium Total Bilirubin AST ALT Alkaline Phosphatase Total Creatine Kinase CK-MB (CK-2) CK-MB (CK-2) Rel Index Troponin I Total Protein Albumin Globulin Albumin/Globulin Ratio Urine Color Yellow Urine Appearance Clear Urine pH 7.0 Ur Specific [place] 1.010 Urine Protein Negative Urine Glucose (UA) Negative Urine Ketones Negative Urine Occult Blood Negative Urine Nitrate Negative Urine Bilirubin Negative Urine Urobilinogen 0.2 Ur Leukocyte Esterase Negative Urine RBC None seen Urine WBC 0-1/hpf Ur Squamous Epith Cells 0-1 /hpf Amorphous Sediment 1+ Urine Bacteria None seen Urine Mucus 1+ H Ur Culture Indicated? Cult not indicated U Opiates 300ng/mL cut Negative Ur Oxycodone Screen Negative Urine Methadone Screen Negative Ur Barbiturates Screen Negative U Tricyclic Antidepress Negative Ur Phencyclidine Scrn Negative Ur Amphetamines Screen Negative U Methamphetamines Scrn Negative Ur MDMA Scrn (Ecstasy) Negative U Benzodiazepines Scrn Negative Urine Cocaine Screen Negative U Marijuana (THC) Screen Negative SARS-CoV-2 (PCR) Negative 03/15/21 03/15/21 05:39 05:39 WBC 7.5 RBC 4.10 L Hgb 12.6 L Hct 38.1 L MCV 93.1 MCH 30.7 MCHC 33.0 RDW 15.2 H Plt Count 287 Neut % (Auto) 64.2 Lymph % (Auto) 22.9 L [place] % (Auto) 11.0 Eos % (Auto) 1.1 L Baso % (Auto) 0.8 Neut # (Auto) 4800 Lymph # (Auto) 1700 [place] # (Auto) 800 Eos # (Auto) 100 Baso # (Auto) 100 PT INR APTT Sodium 130 L Potassium 5.1 Chloride 98 Carbon Dioxide 25 BUN 13 Creatinine 1.42 H Estimated GFR 47.3 L BUN/Creatinine Ratio 9.2 Glucose 162 H Calcium 9.8 Magnesium 2.0 Total Bilirubin AST ALT Alkaline Phosphatase Total Creatine Kinase CK-MB (CK-2) CK-MB (CK-2) Rel Index Troponin I Total Protein Albumin Globulin Albumin/Globulin Ratio Urine Color Urine Appearance Urine pH Ur Specific [place] Urine Protein Urine Glucose (UA) Urine Ketones Urine Occult Blood Urine Nitrate Urine Bilirubin Urine Urobilinogen Ur Leukocyte Esterase Urine RBC Urine WBC Ur Squamous Epith Cells Amorphous Sediment Urine Bacteria Urine Mucus Ur Culture Indicated? U Opiates 300ng/mL cut Ur Oxycodone Screen Urine Methadone Screen Ur Barbiturates Screen U Tricyclic Antidepress Ur Phencyclidine Scrn Ur Amphetamines Screen U Methamphetamines Scrn Ur MDMA Scrn (Ecstasy) U Benzodiazepines Scrn Urine Cocaine Screen U Marijuana (THC) Screen SARS-CoV-2 (PCR) [facility] Medical History Anxiety CAD (coronary artery disease) DDD (degenerative disc disease), cervical Depression Diabetes Dyslipidemia Dysuria Elevated serum homocysteine level History of angina History of CVA (cerebrovascular accident) History of dizziness History of esophageal reflux History of fatigue History of hematuria Impotence Lumbosacral radiculopathy at L5 Memory deficit Neuropathy of both feet Osteoarthritis Pacemaker (~2013) Paroxysmal A-fib 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 RBBB Renal insufficiency Sick sinus syndrome Sleep apnea (~2012) Spinal stenosis in cervical region Spinal stenosis of lumbar region TIA (transient ischemic attack) Urinary retention Surgical History H/O laminectomy H/O shoulder surgery H/O thumb surgery History of appendectomy History of bladder surgery History of cardiac cath (~2012) History of cholecystectomy (~2012) History of cystoscopy History of lumbar fusion History of tonsillectomy History of vasectomy S/P drug eluting coronary stent placement Status post right foot surgery Social History marital status: details: aisha Horner, lives in [place] household members: spouse lives independently: Yes caregiver/support person: No housing: house Smoking Status: Never smoker alcohol intake: current substance use type: does not use Assessment & Plan Assessment & Plan narrative: [place] [id number] & Physical Report Patient: Sotero Kasper R#: [id number]: 5Acct:[id number]/Sex: 86 / M Date of Service: 03/14/21Provider: Tabitha Pratt MD History of Present Illness History of Present Illness Date Patient Seen: 03/14/21 Time Patient Seen: 18:38 Chief complaint: Weakness & confusion Narrative: 86 yo male patient of Dr. Muller is admitted from the ED secondary to increased confusion, worsening speech, and new left-sided weakness that has now resolved on the floor and he is back to his baseline with a NIH stroke scale of 0. 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 He had no residual deficit after tPA administration. reported to the ED physician today that his symptoms had been going on for more than a day so he was outside the window for tPA administration. EMS recorded initial systolic pressure of 90 but he became hypertensive in the ED with sytolics into the 190s. Vital signs upon presentation to the ED included a pulse of 70, blood pressure 128/70, respirations 18, and O2 saturation 97% on room air. Pertinent labs i ncluded a normocytic/normochromic anemia with a hemoglobin/ hematocrit of 12.9/39.4. Sodium at baseline, 131. Creatinine elevated at 1.42; baseline 1.2. Glucose elevated at 186. CT angiogram head/neck notably negative for acute stroke. He again showed 80-90% stenosis of the left carotid artery and mild stenosis of the right carotid artery. Patient History Medical History Anxiety CAD (coronary artery disease) DDD (degenerative disc disease), cervical Depression Diabetes Dyslipidemia Dysuria Elevated serum homocysteine level History of angina History of CVA (cerebrovascular accident) History of dizziness History of esophageal reflux History of fatigue History of hematuria Impotence Lumbosacral radiculopathy at L5 Memory deficit Neuropathy of both feet Osteoarthritis Pacemaker (~2013) Paroxysmal A-fib 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 RBBB Renal insufficiency Sick sinus syndrome Sleep apnea (~2012) Spinal stenosis in cervical region Spinal stenosis of lumbar region TIA (transient ischemic attack) Urinary retention Surgical History H/O laminectomy H/O shoulder surgery H/O thumb surgery History of appendectomy History of bladder surgery History of cardiac cath (~2012) History of cholecystectomy (~2012) History of cystoscopy History of lumbar fusion History of tonsillectomy History of vasectomy S/P drug eluting coronary stent placement Status post right foot surgery Family & Social History Social History: household members spouse lives independently Yes caregiver/support person No Safety & Behavioral: Feels Safe in Current Yes Environment Been Physically Hurt or No Threatened By a Person Tobacco & Substance use: Smoking Status Never smoker alcohol intake current alcohol intake frequency holiday/special occasion Substance Use Type does not use Meds Home Medications and Allergies Home Medications Medication Instructions Recorded Confirmed Type nitroglycerin 0.4 mg SL Q5-15M PRN #30 tab 10/12/18 06/27/21 Rx levothyroxine 75 mcg PO QAM 08/27/18 03/14/21 History metformin 500 mg PO BID 08/27/18 03/14/21 History amiodarone 200 mg tablet 100 mg PO QAM tab 12/24/18 03/14/21 History aspirin 81 mg tablet,delayed 81 mg PO QAM 12/24/18 03/14/21 History release finasteride 5 mg PO BEDTIME 07/06/20 03/14/21 History atorvastatin 20 mg PO QAM 09/23/20 03/14/21 History duloxetine 30 mg PO DAILY 09/23/20 03/14/21 History esomeprazole magnesium 40 mg PO BID 09/23/20 03/14/21 History ondansetron HCl 4 mg PO TID PRN 09/23/20 03/14/21 History hydrocodone-acetaminophen 1 tab PO Q6H PRN 10/06/20 03/14/21 History magnesium oxide 400 mg PO BID #180 tab 10/08/20 03/14/21 Rx glipizide 2.5 mg PO DAILY 01/14/21 03/14/21 History metoprolol succinate 12.5 mg PO BEDTIME 03/14/21 03/14/21 History metoprolol succinate 25 mg PO DAILY 03/14/21 03/14/21 History ticagrelor [Brilinta] 90 mg PO BID 03/14/21 03/14/21 History Allergies Allergy/AdvReac Type Severity Reaction Status Date / Time Zpsnojo-Kro-Axe Reductase Allergy Intermediate MUSCLE PAIN Verified 02/06/21 14:29 Inhibitor [ULYVSKM-PIM-UIT REDUCTASE INHIBITOR] piroxicam [PIROXICAM] Allergy Mild NAUSEA, Verified 02/06/21 14:29 VOMITING dabigatran etexilate AdvReac Hematuria Verified 02/06/21 14:29 Review of Systems Review of Systems ROS: Yes All systems reviewed with the patient and are negative except as otherwise documented Exam Vital Signs (past 8 hours):- 03/14/21 14:41 03/14/21 14:42 03/14/21 15:00 Pulse Rate 70 70 69 Respiratory Rate 18 24 Blood Pressure 128/70 128/70 138/65 Pulse Oximetry 97 96 97 03/14/21 15:36 03/14/21 16:00 03/14/21 16:15 Pulse Rate 69 69 69 Respiratory Rate 20 22 Blood Pressure 154/88 H Pulse Oximetry 97 98 97 03/14/21 16:30 03/14/21 16:37 03/14/21 17:00 Pulse Rate 69 69 69 Respiratory Rate 24 18 18 Blood Pressure 168/113 H 167/115 H 194/94 H Pulse Oximetry 98 98 97 03/14/21 17:30 03/14/21 18:00 Pulse Rate 69 69 Respiratory Rate 17 21 Blood Pressure 194/91 H 189/90 H Pulse Oximetry 98 97 Oxygen Delivery Method Room Air Narrative Exam Narrative: GENERAL: Alert and oriented, appearing stated age and in no acute distress, tired. HEENT: Head normocephalic/atraumatic. Pupils equal, round, and reactive to light and accomodation. Extraocular muscles intact. Tympanic membranes clear. Nasal mucosa moist, septum midline. Oral mucosa moist, no lesions. Neck soft and supple, no lymphadenopathy. LUNGS: Clear to ausculation bilaterally, no wheezes, rhonchi or rales. CV: Irregularly irregular, no audible murmurs, rubs or gallops. ABDOMEN: Soft, non-tender, non-distended, no organomegaly. Positive bowel sounds. EXTREMITIES: No clubbing, cyanosis, or edema. NEURO: Cranial nerves II through XII grossly intact, no focal deficits. Finger to nose and heel to calderon testing negative. Strength 5/5, symmetric. PSYCH: Alert and oriented x 3. SKIN: No concerning lesions. Objective Labs Result Diagrams: 03/14/21 14:43 document embedded image 03/14/21 14:43 document embedded image Labs:Laboratory Results - last 24 hr 03/14/21 03/14/21 03/14/21 14:43 14:43 14:43 WBC 5.9 RBC 4.25 L Hgb 12.9 L Hct 39.4 L MCV 92.7 MCH 30.4 MCHC 32.8 RDW 15.5 H Plt Count 317 Neut % (Auto) 67.7 Lymph % (Auto) 19.9 L [place] % (Auto) 10.6 Eos % (Auto) 1.0 L Baso % (Auto) 0.8 Neut # (Auto) 4000 Lymph # (Auto) 1200 [place] # (Auto) 600 Eos # (Auto) 100 Baso # (Auto) 0 PT 12.5 INR 1.1 APTT 32 Sodium 131 L Potassium 4.8 Chloride 98 Carbon Dioxide 23 BUN 14 Creatinine 1.42 H Estimated GFR 47.3 L BUN/Creatinine Ratio 9.9 Glucose 186 H Calcium 9.5 Total Bilirubin 0.6 AST 37 ALT 34 Alkaline Phosphatase 99 Total Creatine Kinase 38 L CK-MB (CK-2) TNP CK-MB (CK-2) Rel Index TNP Troponin I < 0.012 Total Protein 6.9 Albumin 4.0 Globulin 2.9 Albumin/Globulin Ratio 1.4 Urine Color Urine Appearance Urine pH Ur Specific [place] Urine Protein Urine Glucose (UA) Urine Ketones Urine Occult Blood Urine Nitrate Urine Bilirubin Urine Urobilinogen Ur Leukocyte Esterase Urine RBC Urine WBC Ur Squamous Epith Cells Amorphous Sediment Urine Bacteria Urine Mucus Ur Culture Indicated? U Opiates 300ng/mL cut Ur Oxycodone Screen Urine Methadone Screen Ur Barbiturates Screen U Tricyclic Antidepress Ur Phencyclidine Scrn Ur Amphetamines Screen U Methamphetamines Scrn Ur MDMA Scrn (Ecstasy) U Benzodiazepines Scrn Urine Cocaine Screen U Marijuana (THC) Screen SARS-CoV-2 (PCR) 03/14/21 03/14/21 03/14/21 15:50 15:50 16:35 WBC RBC Hgb Hct MCV MCH MCHC RDW Plt Count Neut % (Auto) Lymph % (Auto) [place] % (Auto) Eos % (Auto) Baso % (Auto) Neut # (Auto) Lymph # (Auto) [place] # (Auto) Eos # (Auto) Baso # (Auto) PT INR APTT Sodium Potassium Chloride Carbon Dioxide BUN Creatinine Estimated GFR BUN/Creatinine Ratio Glucose Calcium Total Bilirubin AST ALT Alkaline Phosphatase Total Creatine Kinase CK-MB (CK-2) CK-MB (CK-2) Rel Index Troponin I Total Protein Albumin Globulin Albumin/Globulin Ratio Urine Color Yellow Urine Appearance Clear Urine pH 7.0 Ur Specific [place] 1.010 Urine Protein Negative Urine Glucose (UA) Negative Urine Ketones Negative Urine Occult Blood Negative Urine Nitrate Negative Urine Bilirubin Negative Urine Urobilinogen 0.2 Ur Leukocyte Esterase Negative Urine RBC None seen Urine WBC 0-1/hpf Ur Squamous Epith Cells 0-1 /hpf Amorphous Sediment 1+ Urine Bacteria None seen Urine Mucus 1+ H Ur Culture Indicated? Cult not indicated U Opiates 300ng/mL cut Negative Ur Oxycodone Screen Negative Urine Methadone Screen Negative Ur Barbiturates Screen Negative U Tricyclic Antidepress Negative Ur Phencyclidine Scrn Negative Ur Amphetamines Screen Negative U Methamphetamines Scrn Negative Ur MDMA Scrn (Ecstasy) Negative U Benzodiazepines Scrn Negative Urine Cocaine Screen Negative U Marijuana (THC) Screen Negative SARS-CoV-2 (PCR) Negative Assessment & Plan Assessment & Plan narrative: 1. Altered consciousness, suspect multifactorial. I had a lengthy discussion with the patient and his . I think he clearly has an element of metabolic encephalopathy. He may have had a TIA as well. I do not get a good indication of seizure disorder. I suspect his episodes that occur when he transfers with his are possibly related to hypotension. We will continue to monitor this in the hospital. Unfortunately were unable to proceed with the MRI because of his pacemaker. However I do not think that this would really change our care or lead to significant intervention. He has definitely been declining since December. I think this was related to his last TIA and subsequent tPA. Although he has not had residual defect he has had progressive cognitive decline with increasing fatigue. We discussed options inc luding referral to a higher level of care. I do not think there is an indication at this time and both patient and his would not want this. We discussed the next steps. We discussed infection have this can contribute to cognition. We discussed pellet of care and they would like a Pallet of care consult if we are able to do this. In the meantime will continue with PT OT and speech therapy. The hopes would be to get him back home to [address]. He may need to a short period of time at a skilled care facility. I do not think his any of his medications are contributing to cognition. I think he has seen the benefit from the duloxetine for his depression. We will continue at this time. We reviewed his CT angiogram evidence of left carotid stenosis which was evaluated and present when he was cared for by [facility] and it was not felt that surgical intervention was warranted due to comorbidities as well as his age Plan: 2. History of CVA/TIA Plan: Please see #1. 3. Hyperlipidemia, chronic Plan: Continue home atorvastatin 20 mg p.o. q.h.s.. 4. Atrial fibrillation, paroxysmal Plan: Continue amiodarone 100 mg p.o. b.i.d., metoprolol 25 mg PO qam and 12.5 mg PO qhs and aspirin 81 mg p.o. q.day. Telemetry. Dr. Arteaga, cardiology consulting as outpatient. Due to patient's left atrial occlusion, does not need to be on anticoagulation. 5. Diabetes mellitus type 2 Plan: Diabetic diet, continue home metformin and glipizide. Will continue with monitoring blood sugars. 6. Hypothyroidism Plan: Continue home levothyroxine 75 mcg p.o. q.day 7. Benign prostatic hypertrophy with urinary retention, chronic Plan: Continue finasteride 5 mg p.o. q.h.s.. 8. Coronary artery disease, chronic Plan: Continue, brilinta and statin as noted above. Nitro as needed. No acute issues at this time. 9. Acute renal insufficiency -Cr 1.42 on admission Plan: Continues to be stable. Will reassess in a.m. 10. History of arrhythmia with sick sinus syndrome and high-grade AV block, pacemaker since 2013 Plan: no events over night. will d/c telemetry at this time 11. Hypoomagnesemia Plan: Continue magnesium 400 mg p.o. b.i.d. Will trend labs. Will check magnesium in a.m. 12. Depression/anxiety Plan: Continue home duloxetine 30 mg p.o. qd. 13. Anemia, normocytic / normochromic, chronic Plan: Likely anemia of chronic disease, will treat underlying diseases. 14. Hyponatremia, chronic, at baseline. Plan: Will trend labs. DVT prophylaxis: SCDs Code status: DNR/DNI COVID: Negative Disposition: continued hospitalization necessary due unclear diagnosis, Time spent with patient at bedside and evaluating his chart and workup and formulating a plan of care was 65 minutes.
--- NOTE | 2021-03-15 08:56 | CM.DANOTE ---
Addendum entered by Mirta Brennan R.N. 03/15/21 15:38: Patient's , Siri, is at bedside. Introduced self and role. Confirmed that patient is mostly in his wheel-chair at the facility. She stated that her is currently under [facility] P.T. Asked her if she would be interested in adding nursing, as an additional discipline, and she stated, she would consider it if the doctor feels that it is necessary. Spoke to Diane at [facility], and she is now are that patient is here. He is currently under P.T, but Diane indicated that a face to face should be done to add nursing. Original Note: DCP: Case received, EMR reviewed and met with patient. Introduced self and role. Was able to obtain some information from patient regarding his baseline activity status, as well as his current living situation. DCP assessment completed with information currently available. Patient is an 86 year old male who admitted yesterday afternoon to the care of the hospitalist team. PCP: Dr. Howard. Payer: confirmed: Medicare/[employer]. Patient came to the hospital via ambulance secondary to having increased weakness and confusion. According to notes, had been assisting patient, attempted to stand him up to transfer him from wheel chair, and was unable to do so. Patient is not able to have MRI due to pace maker, but he is to be having an echo today. Met with patient in his room. He was laying in bed, he had his call light in his hand. He was somewhat alert. Confirmed with him that he lives here in [place] at [facility], which is an independent facility. He resides with his , Siri. P: DCP to continue to follow. He will have echo today, and is supposed to work with O.T/P.T. Patient may benefit with home health at his facility upon discharge. Mirta Brennan RN/Lehr Stripper
[2021-03-15] MEDS: ATORVASTATIN 20 MG TABLET PO (09:18)
[2021-03-15] MEDS: DULOXETINE 30 MG CAPSULE PO (09:18)
[2021-03-15] MEDS: MAGNESIUM OXIDE 400 MG TABLET PO ×2 (09:18→21:01)
[2021-03-15] MEDS: LEVOTHYROXINE 75 MCG TABLET PO (09:18)
[2021-03-15] MEDS: ASPIRIN EC 81 MG TABLET PO (09:18)
[2021-03-15] MEDS: METOPROLOL ER 25 MG TABLET PO (09:19)
[2021-03-15] MEDS: METFORMIN HCL 500 MG TABLET PO ×2 (09:19→21:01)
[2021-03-15] MEDS: AMIODARONE 200 MG TABLET 100 MG PO (09:19)
[2021-03-15] MEDS: SODIUM CHLORIDE 0.9% FLUSH 10 ML IV ×2 (09:20→21:48)
[2021-03-15] MEDS: PANTOPRAZOLE DR 40 MG TABLET PO ×2 (09:20→21:01)
--- NOTE | 2021-03-15 12:14 | ST.OPIE ---
Visit Care Team Role Provider Type Diane Howard MD Primary Care Provider Physician Specialty: [facility] Practice Address: [facility], [address], [place], [address] Email: [email or web address] Priya Magdaleno DO Emergency Provider Physician Referring Provider Specialty: Emergency Medicine Address: [address] [place] [address], [id number] Email: [email or web address] Tabitha Pratt MD Admit Provider Physician Attending Provider Specialty: [facility] Address: [facility], [address], [place], [address] Email: [email or web address] Speech-Language Pathology Initial Evaluation IT APPLICATIONS MANAGER Adult Cognitive Linguistic Eval Start: 03/15/21 11:44 Freq: Status: Active Protocol: Document 03/15/21 11:44 DEVAUGHN (Rec: 03/15/21 12:13 [email or web address] [id number]) Adult Cognitive Linguistic Evaluation Session Time Visit Start Time 09:10 Visit Stop Time 09:30 Total Visit Minutes [address] Tabitha Pratt Reason for Referral Stroke protocol Setting Assessment Location Acute Care Visit Type Note Type Initial evaluation Next Note Type Next Note Type Treatment Note Patient Information Identification Type Name,ID Card Medical History Pt is an 86-yr-old male who was admitted after presenting to ED with increased confusion , worsening speech, and new left-sided weakness, which resolved on the floor and he was back to his baseline with a NIH stroke scale of 0. 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 CT angiogram head/ neck notably was negative for acute stroke. The pt has a pacemaker, so MRI was unobtainable. Echo was scheduled for this morning. Language(s) Spoken in the Home [place] Occupation Status Retired Previous Therapy Previous Speech-Language Therapy No Subjective Patient Report The pt was awake, lying in bed with at bedside upon IT APPLICATIONS MANAGER 's arrival. The pt expressed feeling tired and was awaiting echo procedure. Both pt and spouse denied pt having dysphagia symptoms. The pt reported some difficulty with expressive language, including word finding difficulties and expressing his thoughts, need for extended processing time to follow conversation from others, and some memory problems that were present before this current event. His agreed; she's observed increased confusion and forgetfulness over the last ~1 month and expressed concern of dementia, stating the pt's mother had had dementia. The pt appeared to be quite tired, frequently closing his eyes throughout the session, and exhibited increased breathing rate over the course of assessment. He stated he felt he was overdoing it. Mental Status Cooperative,Lethargic Assessment Oral Motor Examination Completed No Informal Assessment Receptive Language Normal No Receptive Language Impairment(s) Comprehension of complex yes/ no questions,Following 2-step commands,Comprehension of conversation Expressive Language Normal No Expressive Language Impairment(s) Sentence closure/completion, Expression of complex thoughts /ideas Pragmatic Language Normal Yes Speech Impairment(s) Slow speech rate Cognition Normal No Cognitive Impairment(s) Orientation,Attention,Short- term memory,Executive functioning,Problem solving, Reasoning,Thought organization Formal Assessment Standardized Test/Screener Type [facility] Mental Status ([facility]) Administration Incomplete Results Attempted to administer SLUMS. The pt exhibited difficulty with several tasks, increased fatigue, and increased breathing rate. The assessment was ended for these reasons and to allow the pt to rest. The pt was oriented to place, city, and day of week. He stated year as 2000 and month as right next to September, or it is September. He was unable to complete addition and subtraction tasks or to reverse 2-digit numbers. He named 11 animals in 60 sec. He recalled 1 of a list of 5 objects immediately with perseveration x1 and additions of 3 words not listed. He recalled 0/5 objects after a delay, but instead listed animals that he had just named in a categorical naming task. The pt attempted to draw a clock, placing the number 12 in its appropriate [address] and writing numbers 12-18 around the lower right quadrant of the clock. The assessment was discontinued to allow the pt to rest. Findings/Results Language Function Mild-moderately impaired Cognitive Function Moderately-severely impaired Findings The pt presents with moderate- severe cognitive deficits, which may be impacted by fatigue in the moment; however , increased confusion and memory loss over the last month or more was reported by both the pt and his . Expressive and receptive language skills appear to be mildly to moderately impaired. Again, this may be impacted by fatigue in the moment. Further assessment of all communication skills is recommended to ensure accurate evaluation and to guide POC. At minimum, the pt exhibits WFDs and required extended time for both expressive and receptive language processing. The pt's swallowing was screened. He tolerated large consecutive sips of water from a straw without overt s/sx of aspiration. No formal bedside swallow evaluation is warranted at this time. Cognitive Communication Deficits Self-awareness of Cognitive- Situational awareness ( Communication Deficits recognition of problem in context;in real time) Impact on Functioning Activity Limits/Particip.Rest. Mod: Interpersonal Interactions Sev: General Tasks and Demands Household Tasks Community Safety Risks Sev: Being Left Alone at Home Reacting to Emergency Managing Medication Traveling Alone in Community Prognosis Prognosis Fair Based on Cognitive status,Family support,Duration of symptoms/ severity,Time since onset Plan of Care Speech-Language Treatment Yes Frequency Daily Duration over hospital stay Patient/Caregiver Education Described results of evaluation,Patient expressed understanding of evaluation, Patient expressed agreement with goals and treatment plans ,Family/caregivers expressed understanding of evaluation, Family/caregivers expressed agreement with goals and treatment plan,Patient requires further education/ training,Family/caregivers require further education/ training Short Term Goals 1. The pt will participate in further assessment of expressive, receptive, and cognitive communication skills to guide POC. 2. Given visual prompts as needed, the pt will demonstrate orientation to person, place, time, and current personal events with 80% accuracy to improve orientation necessary to participate in decision making related to his care. [employer] Goals 1. The pt will demonstrate sufficient expressive, receptive and cognitive communication skills to participate in medical decisions and express wants/ needs. Discharge Recommendations correction facility,Home with Home Health
--- NOTE | 2021-03-15 14:08 | OT.IP.EVAL ---
Past Medical History (Last Reviewed 03/14/21 @ 20:44 by Priya Magdaleno DO) Anxiety CAD (coronary artery disease) DDD (degenerative disc disease), cervical Depression Diabetes Dyslipidemia Dysuria Elevated serum homocysteine level H/O laminectomy H/O shoulder surgery H/O thumb surgery History of angina History of appendectomy History of bladder surgery History of cardiac cath (~2012) History of cholecystectomy (~2012) History of CVA (cerebrovascular accident) History of cystoscopy History of dizziness History of esophageal reflux History of fatigue History of hematuria History of lumbar fusion History of tonsillectomy History of vasectomy Impotence Lumbosacral radiculopathy at L5 Memory deficit Neuropathy of both feet Osteoarthritis Pacemaker (~2013) Paroxysmal A-fib 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 RBBB Renal insufficiency S/P drug eluting coronary stent placement Sick sinus syndrome Sleep apnea (~2012) Spinal stenosis in cervical region Spinal stenosis of lumbar region Status post right foot surgery TIA (transient ischemic attack) Urinary retention Surgical History (Last Reviewed 03/14/21 @ 20:44 by Priya Magdaleno DO) H/O laminectomy H/O shoulder surgery H/O thumb surgery History of appendectomy History of bladder surgery History of cardiac cath (~2012) History of cholecystectomy (~2012) History of cystoscopy History of lumbar fusion History of tonsillectomy History of vasectomy S/P drug eluting coronary stent placement Status post right foot surgery Occupational Therapy Inpatient Evaluation/Re-Eval M1 PT/OT-IP Prior Functional Status Start: 03/15/21 09:10 Freq: NEEDED Status: Active Protocol: Document 03/15/21 14:08 AW (Rec: 03/15/21 15:12 AW [id number]) Medical Review Prior Functional Status Medical History Reviewed Yes Communication Pt has been having problems with memory and cognition, worse since CVA in December 2020. He has been sleeping a lot and having increased confusion according to his . Mobility and Gait Pt had a CVA in 2018 after which he was walking mod I with a cane. He had begun to start using a FWW occasionally before he had another stroke in December 2020. Since that time , he has depended on a FWW for short distance ambulation (20 feet) and transfers. He has a transport chair which his is able to help him transfer into. He has been requiring assist for all transfers. Activities of Daily Living and IADL's Pt's provides assist with dressing. He now takes sponge baths instead of showers with his assisting. He has been independent with toileting. Prior Functional Level (Other details) Pt's reports his need for assist fluctuates with no identifiable pattern. She describes what she calls seizure-like activity such as tremors and rigidity as pt settles in to his transport w/ c which has been happening more frequently in the past few weeks. Social History Household Members spouse Living Arrangements House Number of Stairs To Enter/Railing? Level entrance Home Environment Standard Height Toilet,Walk in Shower Home Equipment Front Wheel Walker,Shower Seat without Backrest,Hand Held Shower Additional Social History Comment Pt has a towel bar in front of his toilet that he uses as a grab bar. He also has a transport wheelchair. He lives at [facility] which is entirely independent living. His , Ellie, has been providing all necessary assist. M2 OT-IP Current Condition Start: 03/15/21 15:43 Freq: Status: Active Protocol: Document 03/15/21 13:35 [facility] (Rec: 03/15/21 16:01 [facility] [id number]) Occupational Therapy Current Condition Current Condition Evaluation Date 03/15/21 Treatment Diagnosis Weakness, confusion Diagnosis Onset Date 03/14/21 M3 OT- IP Subjective and Pain Start: 03/15/21 15:43 Freq: Status: Active Protocol: Document 03/15/21 13:35 [facility] (Rec: 03/15/21 16:01 [facility] [id number]) OT- Subjective Occupational Therapy Visit Type Type Initial Evaluation Visit Start Time 13:35 Visit Stop Time 14:08 Total Visit Minutes 33 Occupational Therapy Visit Comments Patient Comments Pt agreed to get up and needing to use the bathroom. Pt's present in the room for OT eval. Pt also present for the session. Patient/Caregiver Goals TO go home. OT Pain Assessment Pain When Pain Assessed At Rest Pain Present Pain Present Denied Pain M4 OT- IP ADL's Start: 03/15/21 15:43 Freq: Status: Active Protocol: Document 03/15/21 13:35 [facility] (Rec: 03/15/21 16:01 [facility] [id number]) OT [id number] Comments OT Self-Feeding Comments Not at meal time. OT ADL-Grooming Comments OT Grooming Comments Pt not wanting to go to the sink to wash his hands and able to wash his hands after set-up of wash cloth while seated. OT ADL-Oral Care Comments Oral Care Comments Not performed. OT ADL-Dressing General Eval Lower Body Dressing Ability Maximum Assistance Areas Needing Assistance Underpants/Brief,Socks Comments OT Dressing Comments Assist to delilah brief over his feet and up over his hips. OT ADL-Toileting General Evaluation Toileting Ability Moderate Assistance,Maximum Assistance Areas Needing Assistance Manage Clothing Comments OT Toileting Comments Assist for wiping for completeness and assist for brief management needs OT ADL-Bathing Comments OT Bathing Comments Not performed. M5 OT- IP IADL's Start: 03/15/21 15:43 Freq: Status: Active Protocol: Document 03/15/21 13:35 [facility] (Rec: 03/15/21 16:01 [facility] [id number]) OT-Instrumental Activities of Daily Living Deficits IADL Deficits Identified Deficits Home Safety Awareness Awareness of Need for Assistance at Home Decreased Awareness Medication Management Medication Management Caregiver Administers Money Management Money Management Caregiver Provides Assistance Meal Preparation Meal Preparation Caregiver Provides Assist Tower Control Operator Tower Control Operator Caregiver Provides Assist M6 OT- IP Functional Cognition Start: 03/15/21 15:43 Freq: Status: Active Protocol: Document 03/15/21 13:35 [facility] (Rec: 03/15/21 16:01 [facility] [id number]) Cognitive Factors Limiting Selfcare Function Cognitive Ability Level of Alertness Alert Patient Orientation Name Attention Span Ability Capable of Focused Attention, Capable of Sustained Attention Ability to Follow Commands Able to Follow One Step Commands with Increased Time, Able to Follow One Step Commands with Repetition Cognitive Comments Cognitive Assessment Comments Pt very tired and pt's mainly speaking for the pt and answering questions. M7 OT- IP Mobility and Balance Start: 03/15/21 15:43 Freq: Status: Active Protocol: Document 03/15/21 13:35 [facility] (Rec: 03/15/21 16:01 [facility] [id number]) OT- Bed Mobility Assessment Supine to Sit Supine to Sit Assist Minimal Assistance Sit to Supine Sit to Supine Assist Moderate Assistance OT-Transfer Assessment Sit to and From Stand Sit to and from Stand Minimal Assistance,Moderate Assistance Transfers Transfer Ability Minimal Assistance,Moderate Assistance Technique Transfer Destination Bed,Chair,Toilet Transfer Technique Stand Step Pivot Devices Transfer Assistive Devices Gait Belt,Front Wheeled Walker Comments Mobility Comments Pt needing MODA with FWW and at times heavily leans to the right and also needing assist for FWW management needs. OT- Balance Assessment Sitting Balance and Reactions Static Sitting Balance Ability Good Dynamic Sitting Balance Ability Good Standing Balance and Reactions Static Standing Balance Ability Fair Comments Other Balance Tests/Deviations/Treatment Pt able to sit and reach : appropriately to wipe. As pt tires , his balance decreases, as time pt leaning to the right and during the same session was able to correct himself. M8 OT- IP Objective Assessments Start: 03/15/21 15:43 Freq: Status: Active Protocol: Document 03/15/21 13:35 [facility] (Rec: 03/15/21 16:01 [facility] [id number]) OT Gross Range of Motion Upper Extremity Range of Motion ROM Impairments grossly WFl OT Strength Upper Extremity Strength Assessment Within Functional Limits OT- Coordination Assessment Upper Extremity Finger to Nose Test Bilateral UE Impaired Comments Coordination Comments Right finger touching his chin versus tip of nose and , left finger touching his upper lip . Even with his eyes open having trouble navigating to touch his nose. M9 OT- IP Assessment and Plan Start: 03/15/21 15:43 Freq: Status: Active Protocol: Document 03/15/21 13:35 [facility] (Rec: 03/15/21 16:01 [facility] [id number]) OT Summary Assessment and Plan Potential Rehabilitation Potential Fair Analytic Complexity at Evaluation Moderate Summary OT Impairments Strength,Balance,Functional Cognition,Functional Mobility, Grooming,Dressing,Toileting, Bathing,Toilet Transfers, Shower Transfers,Activity Tolerance Progress Towards Goals Slow Progress due to Medical Issues,Slow Progress due to Activity Tolerance,Slow Progress due to Cognition Assessment Summary Pt MOD complexity and present due to weakness/confusion. Per pt has been needing more of her assist for all needs. Per pt's pt has had episodes of rigidity and therefore inconsistent with his mobility at home. Pt would benefit from home health once medically stable. To see pt for OT to do caregiver training and speak of equipment needs with his . Pt's will benefit from additional help pending how pt progresses. Goals Self-Feeding Goal Standby Assistance Grooming Goal Standby Assistance Dressing Goal Moderate Assistance Toileting Goal Moderate Assistance Bathing Goal Moderate Assistance Toilet Transfer Goal Minimal Assistance Shower Transfer Goal Minimal Assistance Patient/Caregiver Education Goal Caregiver Independent Assisting Patient Days to Meet Goals 5 Frequency of Treatment Frequency Of Treatment Once a Day Treatment Plan OT Treatment Plan ADL Training,Functional Cognition Training,Functional Mobility,Patient/Family Education,Discharge Planning Other Treatment Recommendations and Next Shower Treatment Focus Discharge Recommendations OT Discharge Recommendations Home with 24/ Assist Available,Home Health Transportation Needs at Discharge Private Vehicle
--- NOTE | 2021-03-15 14:08 | PT.IIE ---
Medical History (Last Reviewed 03/14/21 @ 20:44 by Priya Magdaleno DO) Anxiety CAD (coronary artery disease) DDD (degenerative disc disease), cervical Depression Diabetes Dyslipidemia Dysuria Elevated serum homocysteine level History of angina History of CVA (cerebrovascular accident) History of dizziness History of esophageal reflux History of fatigue History of hematuria Impotence Lumbosacral radiculopathy at L5 Memory deficit Neuropathy of both feet Osteoarthritis Pacemaker (~2013) Paroxysmal A-fib 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 RBBB Renal insufficiency Sick sinus syndrome Sleep apnea (~2012) Spinal stenosis in cervical region Spinal stenosis of lumbar region TIA (transient ischemic attack) Urinary retention Physical Therapy Inpatient Evaluation/Re-Eval M1 PT/OT-IP Prior Functional Status Start: 03/15/21 09:10 Freq: NEEDED Status: Active Protocol: Document 03/15/21 14:08 AW (Rec: 03/15/21 15:12 AW [id number]) Medical Review Prior Functional Status Medical History Reviewed Yes Communication Pt has been having problems with memory and cognition, worse since CVA in December 2020. He has been sleeping a lot and having increased confusion according to his . Mobility and Gait Pt had a CVA in 2018 after which he was walking mod I with a cane. He had begun to start using a FWW occasionally before he had another stroke in December 2020. Since that time , he has depended on a FWW for short distance ambulation (20 feet) and transfers. He has a transport chair which his is able to help him transfer into. He has been requiring assist for all transfers. Activities of Daily Living and IADL's Pt's provides assist with dressing. He now takes sponge baths instead of showers with his assisting. He has been independent with toileting. Prior Functional Level (Other details) Pt's reports his need for assist fluctuates with no identifiable pattern. She describes what she calls seizure-like activity such as tremors and rigidity as pt settles in to his transport w/ c which has been happening more frequently in the past few weeks. Social History Household Members spouse Living Arrangements House Number of Stairs To Enter/Railing? Level entrance Home Environment Standard Height Toilet,Walk in Shower Home Equipment Front Wheel Walker,Shower Seat without Backrest,Hand Held Shower Additional Social History Comment Pt has a towel bar in front of his toilet that he uses as a grab bar. He also has a transport wheelchair. He lives at [facility] which is entirely independent living. His , Ellie, has been providing all necessary assist. M2 PT-IP Current Condition Start: 03/15/21 09:10 Freq: NEEDED Status: Active Protocol: Document 03/15/21 14:08 AW (Rec: 03/15/21 15:12 AW [id number]) Physical Therapy Current Condition Current Condition Evaluation Date 03/15/21 Treatment Diagnosis weakness, confusion; impaired mobility and gait Onset Date 03/13/21 Precautions Other Precautions falls M3 PT-IP Subjective Start: 03/15/21 09:10 Freq: NEEDED Status: Active Protocol: Document 03/15/21 14:08 AW (Rec: 03/15/21 15:12 AW [id number]) Subjective Physical Therapy Visit Type Type Initial Evaluation Visit Start Time 11:14 Visit Stop Time 14:08 Total Visit Minutes 46 Notes Pt seen for split visits 1114- 1127 and [id number]. Accompanied by OT at second visit. Physical Therapy Visit Comments Patient Comments Pt was quite somnolent at AM contact, more alert and willing to participate this afternoon. Therapy Pain Assessment Pain When Pain Assessed During Mobility Pain Present Pain Present Denied Pain M4 PT-IP Mobility and Gait Start: 03/15/21 09:10 Freq: NEEDED Status: Active Protocol: Document 03/15/21 14:08 AW (Rec: 03/15/21 15:12 AW [id number]) PT-Bed Mobility Assessment Supine to Sit Supine to Sit Minimal Assistance,1 Person Assistance Sit to Supine Sit to Supine Moderate Assistance,1 Person Assistance PT-Transfer Assessment Sit to and From Stand Sit to and from Stand Minimal Assistance,1 Person Assistance,Use of Upper Extremities Equipment Transfer Assistive Device Gait Belt,Front Wheeled Walker Transfers Transfer Destination Bed,Toilet Transfer Technique Stand Step Pivot Transfer Ability Level of Assist Contact Guard Assistance,1 Person Assistance,Use of Upper Extremities Comments Mobility Comments Pt was lying in bed as PT and OT arrived. He asked to use the toilet. He completed supine to sit min assist and stood from the bed min assist. He leaned to the right in stance and in gait, requiring mod assist with FWW to ambulate 15 feet. He transferred to the toilet [facility] with max cues to use the grab bar. OT provided assist with toileting. Pt then stood from the toilet min assist and ambulated to the sink with FWW mod assist where he began to complain of lightheadedness. He was assisted with 2PA and no AD to sit on the chair. Symptoms did not improve. Pt transferred chair to bed with 2PA no AD. He was able to bridge his hips to assist with repositioning. Pt was left with call light and tray table in reach, bed alarm armed for safety. His remained in the room. Gait Assessment Gait Gait Assistance Required: Moderate Assistance,1 Person Assist Distance (Feet) 15 Assistive Devices Assistive Device Gait Belt,Front Wheeled Walker Orthotic/Prosthetic Devices or Brace: No Gait Deviations General Gait Pattern Antalgic,Decreased Stride Length,Decreased Feet Clearance,Flexed Trunk,Lateral Trunk Lean,Step-to Gait Factors Limiting Gait Function Factors Limiting Gait Function Decreased Activity Tolerance, Decreased Strength, Incoordination,Poor Balance, Poor Safety Awareness Comments Gait Comments Pt leaned to the right in stance and in gait with FWW. He dragged his right foot and was unable to clear it. Stair Climbing Assessment Comments Stair Climbing Comments Not assessed. PT-Balance Assessment Sitting Balance and Reactions Static Sitting Balance Ability Fair Dynamic Sitting Balance Ability Fair Standing Balance and Reactions Static Standing Balance Ability Poor Dynamic Standing Balance Ability Poor Device Used FWW M5 PT-IP Objective Assessments Start: 03/15/21 09:10 Freq: NEEDED Status: Active Protocol: Document 03/15/21 14:08 AW (Rec: 03/15/21 15:23 AW [id number]) Orientation Orientation/Cognition Level of Alertness Confusional State Orientation Name,Place,Situation Safety Awareness Decreased Safety Awareness Memory Description Short Term Impaired Comments Pt was soft spoken and his frequently spoke for him although he was able to communicate his needs. Gross Range of Motion Lower Extremity ROM Assessment Bilaterally Impaired Impairments Lacking knee extension, slight flexion contractures bilaterally Strength Lower Extremity Strength Assessment Bilaterally Impaired Hip 3+/5 Knee 3+/5 Sensation Assessment Sensation Gross Sensation WNL Muscle Tone Muscle Tone WNL Yes M6 PT-IP Treatment Start: 03/15/21 09:10 Freq: NEEDED Status: Active Protocol: Document 03/15/21 14:08 AW (Rec: 03/15/21 15:23 AW [id number]) Physical Therapy Treatment Education Education Provided Safety M7 PT-IP Assessment and Plan Start: 03/15/21 09:10 Freq: NEEDED Status: Active Protocol: Document 03/15/21 14:08 AW (Rec: 03/15/21 15:23 AW [id number]) PT Summary Assessment and Plan Potential Rehabilitation Potential Fair Status of Condition at Evaluation Evolving Summary Impairments ROM,Strength,Balance,Cognition ,Bed Mobility,Transfers,Gait Assessment Summary Sotero is an 86 yo man seen for PT evaluation after being admitted with symptoms of possible TIA including weakness, confusion, and speech difficulty. He has history of at least two CVA's and has been limited to short distance household ambulation with FWW since his last stroke in December. His has been providing all assist at home. On evaluation, pt required min to mod assist with all mobility. He complained of lightheadedness in standing but BP was stable. Pt's describes seizure-like activity at home when pt transfers to his transport wheelchair, including rigidity and tremors which pass after 1-2 minutes. This was communicated to admitting provider. This PT did not observe any such activity. Pt is active with [employer] and pt's states this has been helpful for caregiver training. Pt would benefit from continued services and increased caregiver support at home. Goals Bed Mobility Goal Standby Assistance Transfer Goal Standby Assistance,Front Wheeled Walker Gait Goal Standby Assistance,Front Wheel Walker Gait Distance 20 Days to Meet Goals 5 Frequency of Treatment Frequency Of Treatment Once a Day Treatment Plan Physical Therapy Treatment Plan Bed Mobility Training,Transfer Training,Gait Training, Therapeutic Exercise,Balance Retraining,Discharge Planning, Neuromuscular Re-ed Other Recommendations and Next Treatment transfers, gait with chair or Focus w/c follow as able Precautions Other Precautions falls Recommendations To Nursing Amount of Assist Needed 1 Person Assist Discharge Recommendations PT Discharge Recommendations Home with 10/04 Assist Available,Home Health Equipment Needed for Home Before consider raised toilet seat, Discharge BSC Transportation Needs at Discharge Private Vehicle,Wheelchair/ Cabulance
[2021-03-15] MEDS: METOPROLOL ER 25 MG TABLET 12.5 MG PO (21:00)
[2021-03-15] MEDS: FINASTERIDE 5 MG TABLET PO (21:01)
[2021-03-16] VITALS (7 sets, daily range): BP systolic 132–181; BP diastolic 70–96; PULSE 55–70; RESP 14–19; TEMP 36.2–37.4; O2SAT 96–98
--- NOTE | 2021-03-16 03:01 | PC.NURSE ---
Addendum entered by Ary Hopper R.N. 03/16/21 06:08: Standing at bedside with walker and SR. [employer] MANAGEMENT and became unsteady and ended up sitting backward onto bed. States he is feeling dizzy. Assisted to chair and then back to bed once linen changed. Addendum entered by Ary Hopper R.N. 03/16/21 04:58: [employer], again, reports patient having dry heaves. Denies nausea but medicated with Zofran due to dry heaves. Original Note: Patient alert; oriented to self, birthdate, day of week, year and place. Breath sounds CTA with RA sat of 97%. HRR; telemetry reading was SR w/1st degree AVB, BBB and v-paced. SR. [employer]NAG[employer] reported prior to assessment patient was having dry heaves but had resolved and denied nausea at time of assessment. BT hypoactive. Voiding per urinal. Able to move self in bed. Up with 1 assist and walker and is unsteady and has difficulty following some directions. Has bilateral foot neuropathy. Did complain of back pain but declined offer of pain medication. Wearing bilateral calf SCD's. Fall risk score is high and bed alarm is activated.
[2021-03-16] MEDS: ONDANSETRON 4 MG ODT PO (04:57)
[2021-03-16 06:17] LABS: Add Manual Diff / Slide Review NO; Basophils Absolute Auto 0 /uL (0-100); Basophils Percent Auto 0.6 % (0-2); Eosinophils Absolute Auto 100 /uL (0-450); Eosinophils Percent Auto 0.9 % (2-4); Hematocrit 38.3 % (41-53); Hemoglobin 12.7 g/dL (13.5-17.5); Lymphocytes Absolute Auto 1300 /uL (1100-4500); Lymphocytes Percent Auto 17.6 % (25-40); Mean Corpuscular HGB Conc 33.1 % (30-36); Mean Corpuscular Hemoglobin 30.4 PG (26-34); Mean Corpuscular Volume 91.9 fL (80-100); Monocytes Absolute Auto 800 /uL (0-900); Monocytes Percent Auto 10.4 % (3-14); Neutrophils Absolute Auto 5300 /uL (1500-7000); Neutrophils Percent Auto 70.5 % (50-75); Platelet Count 286 X10^3/uL (150-400); Red Blood Cell Count 4.17 X10^6/uL (4.5-5.9); Red Cell Distribution Width 15.5 % (11.6-14.8); White Blood Cell Count 7.5 X10^3/uL (4.5-11.0)
[2021-03-16 06:24] LABS: Alanine Aminotransferase 32 IU/L (<50); Albumin 3.9 g/dL (3.5-5.0); Albumin Globulin Ratio 1.4 (1.0-2.8); Alkaline Phosphatase 111 U/L (38-126); Aspartate Aminotransferase 30 IU/L (17-59); Bilirubin Total 0.8 mg/dL (0.2-1.3); Blood Urea Nitrogen 13 mg/dL (9-20); Calcium 9.6 mg/dL (8.4-10.2); Carbon Dioxide 21 mmol/L (22-32); Chloride 97 mmol/L (98-107); Estimated Glomerular Filt Rate 52.3 mL/min (>60); Globulin 2.8 g/dL (1.7-4.1); Glucose 138 mg/dL (80-110); HEMOLYSIS < 15 (0-50); Magnesium 1.9 mg/dL (1.6-2.3); Potassium 4.5 mmol/L (3.4-5.1); Sodium 129 mmol/L (137-145); Total Protein 6.7 g/dL (6.3-8.2)
[2021-03-16] MEDS: AMIODARONE 200 MG TABLET 100 MG PO (09:28)
[2021-03-16] MEDS: ASPIRIN EC 81 MG TABLET PO (09:29)
[2021-03-16] MEDS: ATORVASTATIN 20 MG TABLET PO (09:29)
[2021-03-16] MEDS: METFORMIN HCL 500 MG TABLET PO ×2 (09:30→17:08)
[2021-03-16] MEDS: MAGNESIUM OXIDE 400 MG TABLET PO ×2 (09:30→20:54)
[2021-03-16] MEDS: LEVOTHYROXINE 75 MCG TABLET PO (09:30)
[2021-03-16] MEDS: DULOXETINE 30 MG CAPSULE PO (09:30)
[2021-03-16] MEDS: PANTOPRAZOLE DR 40 MG TABLET PO ×2 (09:31→20:55)
[2021-03-16] MEDS: METOPROLOL ER 25 MG TABLET PO (09:32)
[2021-03-16] MEDS: SODIUM CHLORIDE 0.9% FLUSH 10 ML IV (09:34)
--- NOTE | 2021-03-16 11:15 | OT.IP.TRT ---
Occupational Therapy Treatment Note M2 OT-IP Current Condition Start: 03/15/21 15:43 Freq: Status: Active Protocol: Document 03/15/21 13:35 [facility] (Rec: 03/15/21 16:01 [facility] [id number]) Occupational Therapy Current Condition Current Condition Evaluation Date 03/15/21 Treatment Diagnosis Weakness, confusion Diagnosis Onset Date 03/14/21 M3 OT- IP Subjective and Pain Start: 03/15/21 15:43 Freq: Status: Active Protocol: Document 03/16/21 12:19 [facility] (Rec: 03/16/21 12:32 [facility] [id number]) OT- Subjective Occupational Therapy Visit Type Type Treatment Note Visit Start Time 10:50 Visit Stop Time 11:15 Total Visit Minutes 25 Occupational Therapy Visit Comments Patient Comments Pt very sleepy and hard to arouse. Patient/Caregiver Goals TO go home. OT Pain Assessment Pain When Pain Assessed At Rest Pain Present Pain Present Denied Pain M4 OT- IP ADL's Start: 03/15/21 15:43 Freq: Status: Active Protocol: Document 03/15/21 13:35 [facility] (Rec: 03/15/21 16:01 [facility] [id number]) OT [id number] Comments OT Self-Feeding Comments Not at meal time. OT ADL-Grooming Comments OT Grooming Comments Pt not wanting to go to the sink to wash his hands and able to wash his hands after set-up of wash cloth while seated. OT ADL-Oral Care Comments Oral Care Comments Not performed. OT ADL-Dressing General Eval Lower Body Dressing Ability Maximum Assistance Areas Needing Assistance Underpants/Brief,Socks Comments OT Dressing Comments Assist to delilah brief over his feet and up over his hips. OT ADL-Toileting General Evaluation Toileting Ability Moderate Assistance,Maximum Assistance Areas Needing Assistance Manage Clothing Comments OT Toileting Comments Assist for wiping for completeness and assist for breif management needs OT ADL-Bathing Comments OT Bathing Comments Not performed. M5 OT- IP IADL's Start: 03/15/21 15:43 Freq: Status: Active Protocol: Document 03/15/21 13:35 [facility] (Rec: 03/15/21 16:01 [facility] [id number]) OT-Instrumental Activities of Daily Living Deficits IADL Deficits Identified Deficits Home Safety Awareness Awareness of Need for Assistance at Home Decreased Awareness Medication Management Medication Management Caregiver Administers Money Management Money Management Caregiver Provides Assistance Meal Preparation Meal Preparation Caregiver Provides Assist Mathematical Engineering Technician Mathematical Engineering Technician Caregiver Provides Assist M6 OT- IP Functional Cognition Start: 03/15/21 15:43 Freq: Status: Active Protocol: Document 03/16/21 12:19 [facility] (Rec: 03/16/21 12:32 [facility] [id number]) Cognitive Factors Limiting Selfcare Function Cognitive Ability Level of Alertness Alert,Drowsy Patient Orientation Name Attention Span Ability Capable of Focused Attention, Capable of Sustained Attention Ability to Follow Commands Able to Follow One Step Commands with Increased Time, Able to Follow One Step Commands with Repetition Cognitive Comments Cognitive Assessment Comments Pt very tired and hard to arouse. Pt's states pt is often very tired at home as well. M7 OT- IP Mobility and Balance Start: 03/15/21 15:43 Freq: Status: Active Protocol: Document 03/16/21 12:19 [facility] (Rec: 03/16/21 12:32 [facility] [id number]) OT- Bed Mobility Assessment Supine to Sit Supine to Sit Assist Moderate Assistance,1 Person Assistance OT-Transfer Assessment Sit to and From Stand Sit to and from Stand Moderate Assistance,1 Person Assistance Comments Mobility Comments Able to to caregiver training with pt's and pt's shown how to delilah/doff the gait belt. Pt's having to assist pt with his trunk as pt pulling on her arm to get up. Pt's states usually he is able to assist her more. Sit to stand MODA x1 to FWW and another person to assist as pt unsteady on his feet. Pt complaining of being whoozy. BP sitting 98/60, after standing 80/48, after getting into supine 157/92, then 171, 82, and then 156/80, able to notify to the nursing of fluctuating BP numbers. OT- Balance Assessment Sitting Balance and Reactions Static Sitting Balance Ability Fair Standing Balance and Reactions Static Standing Balance Ability Poor Comments Other Balance Tests/Deviations/Treatment Pt very drowsy today and : needing more assist for all needs, in addition pt BP dropping during orthostatic BP measurements. M8 OT- IP Objective Assessments Start: 03/15/21 15:43 Freq: Status: Active Protocol: Document 03/15/21 13:35 [facility] (Rec: 03/15/21 16:01 [facility] [id number]) OT Gross Range of Motion Upper Extremity Range of Motion ROM Impairments grossly WFl OT Strength Upper Extremity Strength Assessment Within Functional Limits OT- Coordination Assessment Upper Extremity Finger to Nose Test Bilateral UE Impaired Comments Coordination Comments Right finger touching his chin versus tip of nose and , left finger touching his upper lip . Even with his eyes open having trouble navigating to touch his nose. M9 OT- IP Assessment and Plan Start: 03/15/21 15:43 Freq: Status: Active Protocol: Document 03/16/21 12:19 [facility] (Rec: 03/16/21 12:32 [facility] [id number]) OT Summary Assessment and Plan Potential Rehabilitation Potential Fair Analytic Complexity at Evaluation Moderate Summary OT Impairments Strength,Balance,Functional Cognition,Functional Mobility, Grooming,Dressing,Toileting, Bathing,Toilet Transfers, Shower Transfers,Activity Tolerance Progress Towards Goals Slow Progress due to Medical Issues,Slow Progress due to Activity Tolerance,Slow Progress due to Cognition Assessment Summary Pt today decreased BP for orthostatic BP and pt states feeling whoozy. Pt's present and tried caregiver training to see if pt's able to assist pt safely at this time. Pt needing two person assist to stand to FWW and at least MODA for bed mobility needs. Pt's states at times at home she can barely be able to asisst the pt and has mainly resorted to use of wc to get th ept from place to place. Pt would benefit from skilled rehab pending medical stability as current function of pt appears to be too great for his to assist on her own at home at this time. Goals Self-Feeding Goal Standby Assistance Grooming Goal Standby Assistance Dressing Goal Moderate Assistance Toileting Goal Moderate Assistance Bathing Goal Moderate Assistance Toilet Transfer Goal Minimal Assistance Shower Transfer Goal Minimal Assistance Patient/Caregiver Education Goal Caregiver Independent Assisting Patient Days to Meet Goals 10 Frequency of Treatment Frequency Of Treatment Once a Day Treatment Plan OT Treatment Plan ADL Training,Functional Cognition Training,Functional Mobility,Patient/Family Education,Discharge Planning Discharge Recommendations OT Discharge Recommendations Home with 10/04 Assist Available,Home Health,SNF Rehab,Home vs SNF Transportation Needs at Discharge Private Vehicle,Wheelchair/ Cabulance
--- NOTE | 2021-03-16 13:41 | PM.PN.1 ---
Subjective Subjective Date Patient Seen: 03/16/21 Time Patient Seen: 13:41 Interval history: Patient with unremarkable night. Patient is sleeping but awakens. Patient has been very fatigued today. He really has not been out of bed. He has had very poor p.o. intake. He has had marked orthostatic hypotension with associated tremors when he transfers although this has not been witnessed here in the hospital but has had occurred at home. He denies any pain at this time. Blood pressure went down to 80/48 when the was helped to stand and he was very symptomatic. Exam Vital Signs (past 8 hours): - 03/16/21 07:42 03/16/21 09:32 03/16/21 11:15 Temperature 97.8 F Pulse Rate 70 70 70 Respiratory Rate 14 Blood Pressure 142/96 H 181/81 H 156/80 H Pulse Oximetry 98 03/16/21 12:37 Temperature 97.5 F L Pulse Rate 70 Respiratory Rate 15 Blood Pressure 137/81 Pulse Oximetry 96 Oxygen Delivery Method Room Air Oxygen Flow Rate 0 Narrative Exam Narrative: Patient is somnolent but awakens to arousing. He is alert but not oriented to place. He is oriented to person. HEENT unremarkable other than mucous membranes dry Neck: Supple without adenopathy no clear jugular venous distension, no bruit Chest: Clear to auscultation without wheezes rhonchi or crackles Cor regular rate and rhythm without murmur abdomen: Positive bowel sounds, soft, nontender, nondistended Extremities no edema Neurologic exam nonfocal Objective Labs Result Diagrams: 03/16/21 05:36 03/16/21 05:36 Labs: Laboratory Results - last 24 hr 03/16/21 03/16/21 05:36 05:36 WBC 7.5 RBC 4.17 L Hgb 12.7 L Hct 38.3 L MCV 91.9 MCH 30.4 MCHC 33.1 RDW 15.5 H Plt Count 286 Neut % (Auto) 70.5 Lymph % (Auto) 17.6 L Preston % (Auto) 10.4 Eos % (Auto) 0.9 L Baso % (Auto) 0.6 Neut # (Auto) 5300 Lymph # (Auto) 1300 Preston # (Auto) 800 Eos # (Auto) 100 Baso # (Auto) 0 Sodium 129 L Potassium 4.5 Chloride 97 L Carbon Dioxide 21 L BUN 13 Creatinine 1.30 H Estimated GFR 52.3 L BUN/Creatinine Ratio 10.0 Glucose 138 H Calcium 9.6 Magnesium 1.9 Total Bilirubin 0.8 AST 30 ALT 32 Alkaline Phosphatase 111 Total Protein 6.7 Albumin 3.9 Globulin 2.8 Albumin/Globulin Ratio 1.4 [facility] Medical History Anxiety CAD (coronary artery disease) DDD (degenerative disc disease), cervical Depression Diabetes Dyslipidemia Dysuria Elevated serum homocysteine level History of angina History of CVA (cerebrovascular accident) History of dizziness History of esophageal reflux History of fatigue History of hematuria Impotence Lumbosacral radiculopathy at L5 Memory deficit Neuropathy of both feet Osteoarthritis Pacemaker (~2013) Paroxysmal A-fib 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 RBBB Renal insufficiency Sick sinus syndrome Sleep apnea (~2012) Spinal stenosis in cervical region Spinal stenosis of lumbar region TIA (transient ischemic attack) Urinary retention Surgical History H/O laminectomy H/O shoulder surgery H/O thumb surgery History of appendectomy History of bladder surgery History of cardiac cath (~2012) History of cholecystectomy (~2012) History of cystoscopy History of lumbar fusion History of tonsillectomy History of vasectomy S/P drug eluting coronary stent placement Status post right foot surgery Social History marital status: details: to Siri, lives in [place] household members: spouse lives independently: Yes caregiver/support person: No housing: house Smoking Status: Never smoker alcohol intake: current substance use type: does not use Assessment & Plan Assessment & Plan narrative: Assessment & Plan Assessment & Plan narrative: 1. Altered consciousness, suspect multifactorial. I think he clearly has an element of metabolic encephalopathy. He may have had a TIA as well. With possible recent TIA. CT angio did not show acute injury. Were unable to do the MRI due to pacemaker. At this point I think that his symptoms are more likely related to the CVA that he had in December and the subsequent tPA. I think he has having gradual decline since this time with some memory issues as well. At this point will continue his current medications for risk reduction. We discussed options that would be more aggressive and that are complicated because of his age and multiple comorbidities and at this point neither he nor his who is the durable power of claim attorney want any further aggressive intervention. Suspect the hyponatremia is contributing and we will start IV fluids. Plan: 2. History of CVA/TIA Plan: With possible recent TIA. CT angio did not show acute injury. Were unable to do the MRI due to pacemaker. At this point I think that his symptoms are more likely related to the CVA that he had in December and the subsequent tPA. I think he has having gradual decline since this time with some memory issues as well. At this point will continue his current medications for risk reduction. We discussed options that would be more aggressive and that are complicated because of his age and multiple comorbidities and at this point neither he nor his who is the durable power of claim attorney want any further aggressive intervention. 3. Hyperlipidemia, chronic Plan: Continue home atorvastatin 20 mg p.o. q.h.s.. 4. Atrial fibrillation, paroxysmal Plan: Continue amiodarone 100 mg p.o. b.i.d., metoprolol 25 mg PO qam and 12.5 mg PO qhs and aspirin 81 mg p.o. q.day. Telemetry. Dr. Arteaga, cardiology consulting as outpatient. Due to patient's left atrial occlusion, does not need to be on anticoagulation. 5. Diabetes mellitus type 2 Plan: Diabetic diet, continue home metformin and glipizide. Will continue with monitoring blood sugars. 6. Hypothyroidism Plan: Continue home levothyroxine 75 mcg p.o. q.day 7. Benign prostatic hypertrophy with urinary retention, chronic Plan: Continue finasteride 5 mg p.o. q.h.s.. 8. Coronary artery disease, chronic Plan: Continue, brilinta and statin as noted above. Nitro as needed. No acute issues at this time. 9. Acute renal insufficiency -Cr 1.42 on admission Plan: Continues to be stable. Will reassess in a.m. 10. History of arrhythmia with sick sinus syndrome and high-grade AV block, pacemaker since 2013 Plan: Continue with current amiodarone. 11. Hypoomagnesemia. Magnesium is normal today. Plan: Continue magnesium 400 mg p.o. b.i.d. 12. Depression/anxiety Plan: Continue home duloxetine 30 mg p.o. qd. 13. Anemia, normocytic / normochromic, chronic Plan: Likely anemia of chronic disease, will treat underlying diseases. 14. Hyponatremia, worsening possibly contributing to decreased cognition and confusion as well as fatigue Plan: Will start normal saline at 1:25 cc an hour will recheck labs in a.m.. 15. Orthostatic hypotension possibly relative dehydration. Plan: Will start normal saline. Will reassess in a.m.. Will do cardiac enzymes. We will monitor closely. And will likely need to decrease his metoprolol. But will see what fluids do. DVT prophylaxis: SCDs Code status: DNR/DNI COVID: Negative Disposition: continued hospitalization necessary due worsening hyponatremia and now with significant orthostatic hypotension with systolic blood pressure dropping to 80.
[2021-03-16] MEDS: SODIUM CHLORIDE 0.45% 1,000 ML 125 ML IV (14:13)
--- NOTE | 2021-03-16 14:21 | CM.DPC ---
Addendum entered by Mirta Brennan R.N. 03/16/21 14:38: Went ahead and left February, in admissions at [facility] [place], a message asking her to review, and that if he does need half-way, would not be eligible until 03/19. Original Note: DCP Cont: Spoke to Dr. Howard regarding plan on patient. She did not feel comfortable sending patient home, for he has had significant orthostatic hypotension. Dr. Howard is ordering IV fluids for patient. His sodium level was 129. Maritza assisted with UR in this case and indicated that patient can make inpatient. That would start today. Dr. Howard indicated that she has had conversations with patient's regarding hospice versus palliated. She is not quite sure if he would qualify for hospice, but did order a palliative care consult. Had her also sign a face to face, for if he goes back home, can include nursing with P.T, and COURT SECURITY OFFICER for resources. Teirney Reyna, palliative care nurse had sent an email, for she received order for consult, and will be here tomorrow, and is requesting to see patient and at 1530. Confirmed this with , Siri, that this time will work for her. Sent an email to Tierney to let her know that this time will work for her. Gave her an update in the email that patient resides at [facility] and that his has been his primary caregiver. Asked patient's is half-way would be an option, but she stated, her primary goal is for him to go home. Asked her if she has any other family support, and she indicated that she has a daughter that is local that can stay with him for a while if she needs some time away. P: DCP to continue to follow. Patient will start IV fluids and will see if he improves. His inpatient status starts today, and will continue to see if he improves with P.T. Did get Dr. Howard to sign the face to face form which is behind the face sheet. Palliative care consult will occur tomorrow. Mirta Brennan RN/Training And Development Head
[2021-03-16 14:43] LABS: Creatine Kinase 58 U/L (55-170)
[2021-03-16 14:56] LABS: NT-proBNP (BNP-Adult 18+) 765 pg/mL (<450); Troponin I < 0.012 ng/mL (0.01-0.034)
--- NOTE | 2021-03-16 15:30 | PT.IPTN ---
Physical Therapy Treatment Note M2 PT-IP Current Condition Start: 03/15/21 09:10 Freq: NEEDED Status: Active Protocol: Document 03/15/21 14:08 AW (Rec: 03/15/21 15:12 AW [id number]) Physical Therapy Current Condition Current Condition Evaluation Date 03/15/21 Treatment Diagnosis weakness, confusion; impaired mobility and gait Onset Date 03/13/21 Precautions Other Precautions falls M3 PT-IP Subjective Start: 03/15/21 09:10 Freq: NEEDED Status: Active Protocol: Document 03/16/21 15:30 AB (Rec: 03/16/21 17:32 AB [id number]) Subjective Physical Therapy Visit Type Type Treatment Note Visit Start Time 15:30 Visit Stop Time 16:05 Total Visit Minutes 35 Number of STATEMENT CLERK Visits 0 Physical Therapy Visit Comments Patient Comments pt is agreeable to do PT Therapy Pain Assessment Pain Present Pain Present Denied Pain M4 PT-IP Mobility and Gait Start: 03/15/21 09:10 Freq: NEEDED Status: Active Protocol: Document 03/16/21 15:30 AB (Rec: 03/16/21 17:32 AB [id number]) PT-Bed Mobility Assessment Supine to Sit Supine to Sit Moderate Assistance,1 Person Assistance PT-Transfer Assessment Sit to and From Stand Sit to and from Stand Minimal Assistance,Moderate Assistance,1 Person Assistance Equipment Transfer Assistive Device Gait Belt,Front Wheeled Walker Orthotic/Prosthetic Devices or Brace: No Transfers Transfer Destination Chair Transfer Technique Stand Step Pivot Transfer Ability Level of Assist Minimal Assistance,Moderate Assistance,1 Person Assistance ,Use of Upper Extremities Comments Mobility Comments BP monitored. Pt agreed to do PT. BP in supine: 136/95. pt completed supine to sit mod A and cues. pt was able to sit on EOB CGA. BP checked: 101/62. pt without c/o dizziness/nausea/ lightheadedness. tolerated ~ 2 more minutes of sitting on EOB. BP checked again: 132/92 . pt completed sit to stand min to mod A and cues. pt only tolerated ~ 10 sec of standing and stated that he has to sit back down but stated that he is not dizzy but just does not feeling right. BP checked: 96/43. IV site leaking and nurse informed. pt was able to sit on EOB for a few more minutes while waiting for the nurse. BP checked again: 135/81. pt agreed to transfer to chair for NAC to change bed sheet/ beddings. completed sit to stand min to mod A and completed transfer using FWW min to mod A. nurse aware of BP and IV sit leak. positioned pt on the chair. BP checked after transfers: 132/70. call light and table placed within reach. M5 PT-IP Objective Assessments Start: 03/15/21 09:10 Freq: NEEDED Status: Active Protocol: Document 03/15/21 14:08 AW (Rec: 03/15/21 15:23 AW [id number]) Orientation Orientation/Cognition Level of Alertness Confusional State Orientation Name,Place,Situation Safety Awareness Decreased Safety Awareness Memory Description Short Term Impaired Comments Pt was soft spoken and his frequently spoke for him although he was able to communicate his needs. Gross Range of Motion Lower Extremity ROM Assessment Bilaterally Impaired Impairments Lacking knee extension, slight flexion contractures bilaterally Strength Lower Extremity Strength Assessment Bilaterally Impaired Hip 3+/5 Knee 3+/5 Sensation Assessment Sensation Gross Sensation WNL Muscle Tone Muscle Tone WNL Yes M6 PT-IP Treatment Start: 03/15/21 09:10 Freq: NEEDED Status: Active Protocol: Document 03/16/21 15:30 AB (Rec: 03/16/21 17:32 AB [id number]) Physical Therapy Treatment Education Education Provided Safety M7 PT-IP Assessment and Plan Start: 03/15/21 09:10 Freq: NEEDED Status: Active Protocol: Document 03/16/21 15:30 AB (Rec: 03/16/21 17:32 AB [email or web address]) PT Summary Assessment and Plan Potential Rehabilitation Potential Fair Summary Impairments Pain,ROM,Strength,Balance, Coordination,Sensation,Tone, Cognition,Bed Mobility, Transfers,Gait,Activity Tolerance Progress Towards Goals Slow Progress due to Medical Issues Assessment Summary pt continues to have unstable BP with decrease from 136/95 in supine to 101/62 in sitting but with recovery after a few minutes of sitting but decrease again to 96/43 in standing. pt with good recovery back to 135/81 in sitting position. Pt's BP affecting activity tolerance and mobility independence. spouse has been assisting pt at home and has a transport chair that pt uses if he is not feeling too well. will have to continue to assess progress but at this time mobility is limited due to drop in BP with upright/ standing activity. Goals Bed Mobility Goal Standby Assistance Transfer Goal Standby Assistance,Front Wheeled Walker Gait Goal Standby Assistance,Front Wheel Walker Gait Distance 20 Days to Meet Goals 10 Frequency of Treatment Frequency Of Treatment Once a Day Treatment Plan Physical Therapy Treatment Plan Bed Mobility Training,Transfer Training,Gait Training, Therapeutic Exercise,Balance Retraining,Discharge Planning, Neuromuscular Re-ed Precautions Other Precautions falls, monitor BP Recommendations To Nursing Amount of Assist Needed 1 Person Assist Discharge Recommendations PT Discharge Recommendations Home with 10/04 Assist Available,Home Health Transportation Needs at Discharge Private Vehicle,Wheelchair/ Cabulance
--- NOTE | 2021-03-16 17:41 | ST.OPTN ---
Visit Care Team Role Provider Type MOLLY Mars Other Providers Advanced Interactive Media Project Manager Address: [address] [place] [address], [id number] Priya Magdaleno DO Emergency Provider Physician Referring Provider Address: [address] [place] [address], [id number] Diane Howard MD Attending Provider Physician Primary Care Provider Address: [address] [place] [address], [address], [place], [address] Tabitha Pratt MD Admit Provider Physician Address: [address] [place] [address], [facility] [place] [facility], [place], [address] [employer] Treatment Note [employer] Clinical Instructor Line Start: 03/16/21 16:35 Freq: Status: Active Protocol: Document 03/16/21 17:40 [email or web address] (Rec: 03/16/21 17:40 [email or web address] [email or web address]) Clinical Instructor Signature Clinical Instructor Clinical Instructor Yes [employer] Treatment Note Start: 03/15/21 11:44 Freq: Status: Active Protocol: Document 03/16/21 10:27 EB (Rec: 03/16/21 11:28 EB [email or web address]) Speech Pathology Treatment Note Session Time Visit Start Time 09:00 Visit Stop Time 09:25 Total Visit Minutes 25 Setting Treatment Setting Acute Care Visit Type Note Type Treatment Note General Information General Information Pt is an 86-yr-old male who was admitted after presenting to ED with increased confusion , worsening speech and new left-sided weakness, which resolved on the floor and he was back to his baseline with a NIH stroke scale of 0. 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 CT angiogram head/ neck notably was negative for acute stroke. Pt has a pacemaker, so MRI was unobtainable. Subjective Identification Type Name,ID Wristband Others Present Family,Student Observations/Patient Presentation Pt was awake and alert, sitting in bed eating with his sitting at his bedside upon [employer]ET[employer] and MARKETING MANAGER [employer] student's arrival. Pt reported that while he didn't feel great he was feeling better then yesterday. Pt was eating food with a dry and crumbly texture, both he and his denied pt having dysphagia symptoms. Chief Complaint(s) Language,Cognitive Patient Knowledge/Awareness of [employer] Role Good in Treatment Parent/Caretake Knowledge/Awareness of Good [employer] Role in Treatment Objective Short Term Goals 1. The pt will participate in further assessment of expressive, receptive, and cognitive communication skills to guide POC. 2. Given visual prompts as needed, the pt will demonstrate orientation to person, place, time, and current personal events with 80% accuracy to improve orientation necessary to participate in decision making related to his care. Financial Health Counselor Goals 1. The pt will demonstrate sufficient expressive, receptive and cognitive communication skills to participate in medical decisions and express wants/ needs. Treatment Activities Assessed pt's expressive and receptive language. Receptively, the pt correctly answered yes/no questions 6/10 , with improving accuracy as he answered more questions. While the patient only correctly pointed to 4/5 objects, he correctly named all 12 objects presented. The patient correctly followed 10 /10 1-step and 2-step commands and correctly followed 3/5 3- step commands. Pt correctly read 5 words, phrases, and sentences. Expressively, the patient correctly recited numbers 1-20 , the alphabet, days of the week, and the months of the year. The cookie theft picture was presented to the pt, he independently described the boy's chair tipping to reach the cookie and that the mother was leaving the sink overflowing. Once the pt. was given 1 prompt, pt. described all the remaining elements of the picture. His sentence structure was appropriate and he did not appear to have WFD during this task. Pt's responses to conversational questions were appropriate, however, pt initially stated that he was in [place] (his reported that he grew up there) and that the current year was 1970. Assessment Impairments Identified Cognitive-Linguistic Skills, Expressive Language,Receptive Language Progress Towards Goals Good Progress Assessment of Overall Progress Improving Assessment of Improvement Patient was more alert compared to yesterday. He was able to participate in assessment activities, which he was unable to do previously . Patient presents with mild receptive and expressive language deficits as characterized by slower rate of speech, which could be indicative of WFD and/or language processing difficulty . Mild/moderate cognitive deficits were also observed in today's session, which is an improvement from yesterday but still warrants ongoing assessment. It is recommended that he continues to be followed for the duration of his hospital stay to determine pt's level of functioning and guide plan of care. Reviewed with Patient Goals,Progress Being Made Patient/Caregiver Understanding Good Plan Comment Duration of hospital stay Therapeutic Contents Cognitive-Linguistic Training, Expressive Language Training, Home Exercise Program, Receptive Language Training Provided Patient/Caregiver Instruction Plan of Care,Questions/ Concerns Therapy Recommendations Continue with Current Program Comment Ongoing assessment and patient /spouse education
[2021-03-16] MEDS: METOPROLOL ER 25 MG TABLET 12.5 MG PO (20:54)
[2021-03-16] MEDS: FINASTERIDE 5 MG TABLET PO (20:57)
[2021-03-17] VITALS (9 sets, daily range): BP systolic 132–170; BP diastolic 68–92; PULSE 70–73; RESP 14–18; TEMP 35.9–36.9; O2SAT 97–98
[2021-03-17] MEDS: SODIUM CHLORIDE 0.45% 1,000 ML 125 ML IV (03:40)
[2021-03-17] MEDS: LEVOTHYROXINE 75 MCG TABLET PO (06:09)
[2021-03-17] MEDS: ATORVASTATIN 20 MG TABLET PO (09:06)
[2021-03-17] MEDS: DULOXETINE 30 MG CAPSULE PO (09:06)
[2021-03-17] MEDS: ASPIRIN EC 81 MG TABLET PO (09:06)
[2021-03-17] MEDS: MAGNESIUM OXIDE 400 MG TABLET PO ×2 (09:06→21:15)
[2021-03-17] MEDS: METFORMIN HCL 500 MG TABLET PO ×2 (09:07→17:13)
[2021-03-17] MEDS: PANTOPRAZOLE DR 40 MG TABLET PO ×2 (09:07→21:15)
[2021-03-17] MEDS: AMIODARONE 200 MG TABLET 100 MG PO (09:09)
[2021-03-17] MEDS: METOPROLOL ER 25 MG TABLET 12.5 MG PO ×2 (09:11→21:15)
[2021-03-17] MEDS: SODIUM CHLORIDE 0.9% FLUSH 10 ML IV (09:12)
[2021-03-17 10:09] LABS: Add Manual Diff / Slide Review NO; Basophils Absolute Auto 0 /uL (0-100); Basophils Percent Auto 0.6 % (0-2); Eosinophils Absolute Auto 0 /uL (0-450); Eosinophils Percent Auto 0.6 % (2-4); Hematocrit 36.8 % (41-53); Hemoglobin 12.2 g/dL (13.5-17.5); Lymphocytes Absolute Auto 1300 /uL (1100-4500); Lymphocytes Percent Auto 16.4 % (25-40); Mean Corpuscular HGB Conc 33.2 % (30-36); Mean Corpuscular Hemoglobin 30.9 PG (26-34); Monocytes Absolute Auto 800 /uL (0-900); Monocytes Percent Auto 10.1 % (3-14); Neutrophils Absolute Auto 5500 /uL (1500-7000); Neutrophils Percent Auto 72.3 % (50-75); Platelet Count 281 X10^3/uL (150-400); Red Blood Cell Count 3.96 X10^6/uL (4.5-5.9); Red Cell Distribution Width 15.9 % (11.6-14.8); White Blood Cell Count 7.7 X10^3/uL (4.5-11.0)
[2021-03-17 10:31] LABS: Alanine Aminotransferase 27 IU/L (<50); Albumin 3.7 g/dL (3.5-5.0); Albumin Globulin Ratio 1.4 (1.0-2.8); Alkaline Phosphatase 106 U/L (38-126); Aspartate Aminotransferase 31 IU/L (17-59); BUN Creatinine Ratio 13.4 (6-22); Bilirubin Total 0.7 mg/dL (0.2-1.3); Blood Urea Nitrogen 16 mg/dL (9-20); Calcium 9.2 mg/dL (8.4-10.2); Carbon Dioxide 23 mmol/L (22-32); Chloride 95 mmol/L (98-107); Globulin 2.6 g/dL (1.7-4.1); Glucose 152 mg/dL (80-110); HEMOLYSIS < 15 (0-50); Potassium 4.7 mmol/L (3.4-5.1); Sodium 127 mmol/L (137-145); Total Protein 6.3 g/dL (6.3-8.2)
[2021-03-17] MEDS: SODIUM CHLORIDE 0.9% 1,000 ML 125 ML IV ×2 (11:09→19:42)
--- NOTE | 2021-03-17 11:30 | ST.IPTN ---
Visit Care Team Role Provider Type MOLLY Mars Other Providers Advanced Waist Pleater Address: [address] [place] [address], [id number] Priya Magdaleno DO Emergency Provider Physician Referring Provider Address: [address] [place] [address], [id number] Diane Howard MD Attending Provider Physician Primary Care Provider Address: [address] [place] [address], [address], [place], [address] Tabitha Pratt MD Admit Provider Physician Address: [address] [place] [address], [facility] [place], [address] TOOL SPECIALIST Treatment Note TOOL SPECIALIST Clinical Instructor Line Start: 03/16/21 16:35 Freq: Status: Active Protocol: Document 03/16/21 17:40 DEVAUGHN (Rec: 03/16/21 17:40 [email or web address] [id number]) Clinical Instructor Signature Clinical Instructor Clinical Instructor Yes TOOL SPECIALIST Treatment Note Start: 03/15/21 11:44 Freq: Status: Active Protocol: Document 03/17/21 18:01 DEVAUGHN (Rec: 03/17/21 18:13 [email or web address] [id number]) Speech Pathology Treatment Note Session Time Visit Start Time 10:35 Visit Stop Time 10:50 Total Visit Minutes 15 Setting Treatment Setting Acute Care Visit Type Note Type Treatment Note Next Note Type Next Note Type Treatment Note General Information General Information Pt is an 86-yr-old male who was admitted after presenting to ED with increased confusion , worsening speech and new left-sided weakness, which resolved on the floor and he was back to his baseline with a NIH stroke scale of 0. 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 CT angiogram head/ neck notably was negative for acute stroke. Pt has a pacemaker, so MRI was unobtainable. Subjective Observations/Patient Presentation Pt was resting in bed with at bedside. Pt expressed being tired but remained awake during session. Chief Complaint(s) Language,Cognitive Patient Knowledge/Awareness of TOOL SPECIALIST Role Good in Treatment Parent/Caretake Knowledge/Awareness of Good TOOL SPECIALIST Role in Treatment Objective Short Term Goals 1. The pt will participate in further assessment of expressive, receptive, and cognitive communication skills to guide POC. 2. Given visual prompts as needed, the pt will demonstrate orientation to person, place, time, and current personal events with 80% accuracy to improve orientation necessary to participate in decision making related to his care. Youth Services Librarian Goals 1. The pt will demonstrate sufficient expressive, receptive and cognitive communication skills to participate in medical decisions and express wants/ needs. Treatment Activities Education was provided to the pt/spouse with recommendations for environmental modifications in the pt's functional environment to support cognitive and communication skills, in anticipation of the pt discharging home or to SNF. REcommendations included establishing a communication center where all pertinent information the pt may need/ want to remember is written down and accessible to the pt; calendar days marked off daily and daily events reviewed morning and evening. Recommended strategies to improve communication, including allotment for additional processing time, word recall strategies, and activities to boost vocabulary and word recall. General aspiration precautions were also reviewed, although the pt has not demonstrated dysphagia symptoms during hospital course. Information was provided orally and in writing. All questions were answered, including recommendation that the pt receive Speech Therapy services at SNF and/or home to assist in the same. Pt/spouse verbalized understanding of all information and in agreement with recommendations . Assessment Patient Response to Treatment Fair Rehab Potential Fair Impairments Identified Cognitive-Linguistic Skills, Expressive Language,Receptive Language Progress Towards Goals Slow Progress Assessment of Overall Progress Improving Assessment of Improvement The pt and his were receptive to all education and recommendations provided today and in agreement. The pt was minimally communicative beyond stating how tired he was. Per Nsg, he appears to be more oriented to time, place and persons. He and his would benefit from ongoing Speech Therapy services at SNF or Home to assist in development of compensatory strategies to support cognition and language and to target word retrieval strategies and orientation in order for the pt to effectively participate in conversations and decisions related to his health care and QOL. Reviewed with Patient Goals,Progress Being Made,Home Exercise Program Patient/Caregiver Understanding Good Plan Treatment Emphasis Next Session Ongoing pt/spouse education; environmental adaptations to support cog/lang Therapeutic Contents Client Education,Cognitive- Linguistic Training,Expressive Language Training,Receptive Language Training Provided Patient/Caregiver Instruction Home Exercise Program,Plan of Care,Questions/Concerns Therapy Recommendations Continue with Current Program
--- NOTE | 2021-03-17 11:55 | OT.IP.TRT ---
Current Diagnoses Altered mental status, unspecified (03/16/21) Occupational Therapy Treatment Note M2 OT-IP Current Condition Start: 03/15/21 15:43 Freq: Status: Active Protocol: Document 03/15/21 13:35 [facility] (Rec: 03/15/21 16:01 [facility] [id number]) Occupational Therapy Current Condition Current Condition Evaluation Date 03/15/21 Treatment Diagnosis Weakness, confusion Diagnosis Onset Date 03/14/21 M3 OT- IP Subjective and Pain Start: 03/15/21 15:43 Freq: Status: Active Protocol: Document 03/17/21 13:15 [facility] (Rec: 03/17/21 13:26 [facility] [id number]) OT- Subjective Occupational Therapy Visit Type Type Treatment Note Visit Start Time 11:27 Visit Stop Time 11:55 Total Visit Minutes 28 Occupational Therapy Visit Comments Patient Comments Initially check on pt in AM and pt's wanting pt to sleep. Able to see pt prior to lunch. Patient/Caregiver Goals Pending speaking to the doctor , pt's thinking about pt going to skilled rehab versus palliative care. OT Pain Assessment Pain When Pain Assessed At Rest Pain Present Pain Present Denied Pain M5 OT- IP IADL's Start: 03/15/21 15:43 Freq: Status: Active Protocol: Document 03/15/21 13:35 [facility] (Rec: 03/15/21 16:01 [facility] [id number]) OT-Instrumental Activities of Daily Living Deficits IADL Deficits Identified Deficits Home Safety Awareness Awareness of Need for Assistance at Home Decreased Awareness Medication Management Medication Management Caregiver Administers Money Management Money Management Caregiver Provides Assistance Meal Preparation Meal Preparation Caregiver Provides Assist Inbound Call Center Representative Inbound Call Center Representative Caregiver Provides Assist M6 OT- IP Functional Cognition Start: 03/15/21 15:43 Freq: Status: Active Protocol: Document 03/17/21 13:15 [facility] (Rec: 03/17/21 13:26 [facility] [id number]) Cognitive Factors Limiting Selfcare Function Cognitive Ability Level of Alertness Alert,Drowsy Patient Orientation Name Attention Span Ability Capable of Focused Attention, Capable of Sustained Attention Ability to Follow Commands Able to Follow One Step Commands with Increased Time, Able to Follow One Step Commands with Repetition Cognitive Comments Cognitive Assessment Comments Pt still drowsy and hard to keep awake. Pt able to follow commands for mobility needs. M7 OT- IP Mobility and Balance Start: 03/15/21 15:43 Freq: Status: Active Protocol: Document 03/17/21 13:15 [facility] (Rec: 03/17/21 13:26 [facility] [id number]) OT- Bed Mobility Assessment Supine to Sit Supine to Sit Assist Minimal Assistance,1 Person Assistance OT-Transfer Assessment Sit to and From Stand Sit to and from Stand Minimal Assistance,1 Person Assistance Transfers Transfer Ability Minimal Assistance,Moderate Assistance,1 Person Assistance Technique Transfer Destination Bed,Chair Transfer Technique Stand Step Pivot Devices Transfer Assistive Devices Gait Belt,Front Wheeled Walker Comments Mobility Comments Able to reassess pt for mobility needs and if pt's able to assist pt for needs. Pt able to log roll and just needing DONNELL from his to get upright. Transfer with FWW DONNELL/MODA for . Pt's states seems closer to baseline. HOB up 134/65, in supine 144/ 72, sitting on edge of bed 100/51, while standing 93/48 and after transfer 107/62 while sitting in recliner. Pt main symptom states getting tired and whoozy. OT- Balance Assessment Sitting Balance and Reactions Static Sitting Balance Ability Good Standing Balance and Reactions Static Standing Balance Ability Fair Comments Other Balance Tests/Deviations/Treatment Pt increased balance today and : able to transfer with his with one person assist with FWW. M8 OT- IP Objective Assessments Start: 03/15/21 15:43 Freq: Status: Active Protocol: Document 03/15/21 13:35 [facility] (Rec: 03/15/21 16:01 [facility] [id number]) OT Gross Range of Motion Upper Extremity Range of Motion ROM Impairments grossly WFl OT Strength Upper Extremity Strength Assessment Within Functional Limits OT- Coordination Assessment Upper Extremity Finger to Nose Test Bilateral UE Impaired Comments Coordination Comments Right finger touching his chin versus tip of nose and , left finger touching his upper lip . Even with his eyes open having trouble navigating to touch his nose. M9 OT- IP Assessment and Plan Start: 03/15/21 15:43 Freq: Status: Active Protocol: Document 03/17/21 13:15 [facility] (Rec: 03/17/21 13:26 [facility] [id number]) OT Summary Assessment and Plan Potential Rehabilitation Potential Fair Analytic Complexity at Evaluation Moderate Summary OT Impairments Strength,Balance,Functional Cognition,Functional Mobility, Grooming,Dressing,Toileting, Bathing,Toilet Transfers, Shower Transfers,Activity Tolerance Progress Towards Goals Slow Progress due to Medical Issues,Slow Progress due to Activity Tolerance,Slow Progress due to Cognition Assessment Summary Pt still having decreased BP during mobility needs. Pt's states today pt closer to his baseline but worried about his function fluctuating. Pt's states may want to have pt go to skilled rehab versus possible palliative. Goals Self-Feeding Goal Standby Assistance Grooming Goal Standby Assistance Dressing Goal Moderate Assistance Toileting Goal Moderate Assistance Bathing Goal Moderate Assistance Toilet Transfer Goal Minimal Assistance Shower Transfer Goal Minimal Assistance Patient/Caregiver Education Goal Caregiver Independent Assisting Patient Days to Meet Goals 9 Frequency of Treatment Frequency Of Treatment Once a Day Treatment Plan OT Treatment Plan ADL Training,Functional Cognition Training,Functional Mobility,Patient/Family Education,Discharge Planning Other Treatment Recommendations and Next Shower Treatment Focus Discharge Recommendations OT Discharge Recommendations Home with 10/04 Assist Available,Home Health,SNF Rehab,Home vs SNF Transportation Needs at Discharge Private Vehicle,Wheelchair/ Cabulance
--- NOTE | 2021-03-17 11:57 | PT.IPTN ---
Current Diagnoses Altered mental status, unspecified (03/16/21) Physical Therapy Treatment Note M2 PT-IP Current Condition Start: 03/15/21 09:10 Freq: NEEDED Status: Active Protocol: Document 03/15/21 14:08 AW (Rec: 03/15/21 15:12 AW [id number]) Physical Therapy Current Condition Current Condition Evaluation Date 03/15/21 Treatment Diagnosis weakness, confusion; impaired mobility and gait Onset Date 03/13/21 Precautions Other Precautions falls M3 PT-IP Subjective Start: 03/15/21 09:10 Freq: NEEDED Status: Active Protocol: Document 03/17/21 11:57 AB (Rec: 03/17/21 12:55 AB [id number]) Subjective Physical Therapy Visit Type Type Treatment Note Visit Start Time 11:57 Visit Stop Time 12:25 Total Visit Minutes 28 Number of GOLF TEACHER Visits 0 Physical Therapy Visit Comments Patient Comments agreeable to do PT Therapy Pain Assessment Pain Present Pain Present Denied Pain M4 PT-IP Mobility and Gait Start: 03/15/21 09:10 Freq: NEEDED Status: Active Protocol: Document 03/17/21 11:57 AB (Rec: 03/17/21 12:55 AB [id number]) PT-Transfer Assessment Sit to and From Stand Sit to and from Stand Minimal Assistance,Moderate Assistance,1 Person Assistance ,Use of Upper Extremities Equipment Transfer Assistive Device Gait Belt,Front Wheeled Walker Orthotic/Prosthetic Devices or Brace: No Comments Mobility Comments pt sitting on chair. BP monitored. BP in sittin /58. completed sit to stand min to mod A and cues. pt was able to standing CGA using FWW for support. cued for upright posture. BP after 2 min of standin/66. pt without complaints of dizziness. requested to use the urinal and spouse assist pt while PT stabilizes pt. BP after ~ 3 min of standin/66. pt stated that he needs to sit down. stated that he is not dizzy but is just tired. pt sat on the chair. positioned on chair. BP checked: 178/97. call light and table placed within reach. M5 PT-IP Objective Assessments Start: 03/15/21 09:10 Freq: NEEDED Status: Active Protocol: Document 03/15/21 14:08 AW (Rec: 03/15/21 15:23 AW [id number]) Orientation Orientation/Cognition Level of Alertness Confusional State Orientation Name,Place,Situation Safety Awareness Decreased Safety Awareness Memory Description Short Term Impaired Comments Pt was soft spoken and his frequently spoke for him although he was able to communicate his needs. Gross Range of Motion Lower Extremity ROM Assessment Bilaterally Impaired Impairments Lacking knee extension, slight flexion contractures bilaterally Strength Lower Extremity Strength Assessment Bilaterally Impaired Hip 3+/5 Knee 3+/5 Sensation Assessment Sensation Gross Sensation WNL Muscle Tone Muscle Tone WNL Yes M6 PT-IP Treatment Start: 03/15/21 09:10 Freq: NEEDED Status: Active Protocol: Document 03/17/21 11:57 AB (Rec: 03/17/21 12:55 AB [id number]) Physical Therapy Treatment Education Education Provided Safety M7 PT-IP Assessment and Plan Start: 03/15/21 09:10 Freq: NEEDED Status: Active Protocol: Document 03/17/21 11:57 AB (Rec: 03/17/21 12:55 AB [id number]) PT Summary Assessment and Plan Potential Rehabilitation Potential Fair Summary Impairments Pain,ROM,Strength,Balance, Coordination,Sensation,Tone, Cognition,Bed Mobility, Transfers,Gait,Activity Tolerance Progress Towards Goals Slow Progress due to Medical Issues Assessment Summary pt continues to have decrease activity tolerance and BP decreases with standing but stabilizes after a few mintures of standing. pt continues to not be able to stand long enough to be able to ambulate safely at this time. spouse has been assisting pt at home but pt was able to ambulate at least to the toilet prior to admission. Pt will require SNF rehab at this time to improve activity tolerance, overall strength and mobility independence. Goals Bed Mobility Goal Standby Assistance Transfer Goal Standby Assistance,Front Wheeled Walker Gait Goal Standby Assistance,Front Wheel Walker Gait Distance 20 Days to Meet Goals 10 Frequency of Treatment Frequency Of Treatment Once a Day Treatment Plan Physical Therapy Treatment Plan Bed Mobility Training,Transfer Training,Gait Training, Therapeutic Exercise,Balance Retraining,Discharge Planning, Neuromuscular Re-ed Precautions Other Precautions falls, monitor BP Recommendations To Nursing Amount of Assist Needed 1 Person Assist Discharge Recommendations PT Discharge Recommendations Home with 10/04 Assist Available,Home Health,SNF Rehab,Home vs SNF Transportation Needs at Discharge Private Vehicle,Wheelchair/ Cabulance
--- NOTE | 2021-03-17 13:20 | P.CONS_ITS ---
History of Present Illness Consult details Date Patient Seen: 03/17/21 Time Patient Seen: 15:30 Chief complaint: Weakness & confusion Reason for consult: Palliative medicine consultation Requesting provider: Diane Howard Narrative: Reason for Consultation: Palliative medicine consultation received from Dr. Diane Howard regarding this unfortunate 86 year old gentleman Mr. Sotero Kasper, who pre sented to the emergency department at [facility] 03/14/2021 when EMS was activated by the patient's for evaluation of increasing weakness and confusion. The patient and his reside at [facility]. Per ED notes, the patient' noted that her has experienced progressively worsening mentatin and weakness since his stroke in December, significantly worsening over the past several weeks. She noted that suddenly the day prior to presentation, the symptoms were acutely worse, with a waxing and waning of his mental status. She reported that he seemed to lose consciousness when she attempted to get him up from his wheelchair to the bathroom, or to instrument maker apprentice general, with stiffness of his arms and confusion afterwards. Notes indicate that the patient did experience chest pain the night prior to admission which was relieved with a dose of SL nitroglycerine. Previous experience of tonic-clonic type activity is negative per the patient's spouse. BP upon EMS arrival 90 systolic, with patient having difficulty answering questions, which persisted upon arrival to the ED. Both pt and his deny any recent fevers, no chest pain or shortness of breath, no nausea or vomiting quite other new GI or urinary symptoms, and deny headaches. Vital signs stable upon presentation. Per H&P, pertinent labs noted included a normocytic/normochromic anemia (12.9/39.4) and hyponatremia as evidenced by Na 131, Elevated creatinine above baseline 1.2 (1.42), glucose 186. CT angiogram head/neck negative for acute stroke, but 80- 90% stenosis of the left carotid artery and mild stenosis of the right carotid artery. The patient was admit to the medical floor for further monitoring and workup for suspected TIA. Of note, this is the patient's 3rd inpatient hospitalization here at [facility] in the past 6 months. He was admit in late December for a CVA which presented with right sided deficit, no residual deficit after TPA administration; patient's symptoms on this current admission were persistent for >1 day prior to presentation, which means he was outside the window for TPA this admission. Additionally, patient made 2 visits to the ER in the month of January for chest pain, atrial fibrillation. Despite time and optimized therapies, patient's altered mental status persists, and his primary provider suspects multifactorial causes including metabolic encephalopathy, TIA, less likely a seizure disorder, versus infection. MRI contraindicated due to pacemaker presence. Pre-syncope and syncopal episodes potentially related to hypotension, these symptoms persist her in the hospital and include fatigue and light headedness, especially when standing, and while working with PT/OT. Notes indicate that the patient is been declining cognitively and physically since his stroke in December 2020. The 's hope is that he can be discharged back to [facility] with his , though he may need care home in the short term. His left carotid artery stenosis has previou sly been evaluated by [facility], and it was determined he was not a surgical candidate due to his multiple co-morbidities and advanced age. It is the opinion of the medical team that the patient's prognosis is likely limited to months and not years, based on his 4 month decline since his stroke in December, and his 90-95% left carotid artery stenosis. He is unlikely to survive heroic/resuscitative measures due to his chronic co-morbidities and poor retirement prognosis. Should he survive resuscitation, he would be unlikely to return to independence. His code status as listed on his admission order set is FULL CODE. 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 He and his Siri (pronounced Ellie) have been for past 32 years. The patient has 3 children reside here in [place], Sydni, Miryam, and Julia, for the previous union. Siri has 3 children of her own, Paco, Tj, and Kanwal. 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 It was on this property that the couple raised Siri's children, who have since left the area. 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 In intermediate, they spent a lot of time traveling, and a favorite trip of theirs [place] is reminisced about today. The patient has not been able to travel since that time. Pt places a priority on his independence, and he and his reside currently in an independent apartment located at a local intermediate community. Patient has Advance Directives, which are not on file for review today. Patient's and daughters understood that the patient wished to avoid resuscitation, however, they have had a [facility] POLST at home, filled out, but not signed for quite some time. Patient states this is because it seems so...final. Daughters, who attend conference by telephone, seem very surprised by this information. Because of the patient's profound general decline in clinical status over months, frailty evident by weakness, frequent falls, inability to provide of adequate self care, severe malnutrition (dramatic, unintentional weight loss, fatigue, lethargy) and given the possibility of an underlying, incurable medical illness, the medical team is of the belief that life expectancy is limited to months rather than years, and has requested clarification of this gentleman's specific medical goals. I have reviewed the medical record, radiographs, diagnostics, attempted to interview the patient (disoriented, no registration) and subsequently interviewed the patient DPOAHC. The following aspects are pertinent, current and remote medical history, social/emotional and family dynamics, current medications and effects, ROS, examination findings, prognosis, care planning, goal setting. Meds Home Medications and Allergies Home Medications Medication Instructions Recorded Confirmed Type nitroglycerin 0.4 mg sublingual 0.4 mg SL Q5-15M PRN #30 tab 06/29/18 03/14/21 Rx tablet levothyroxine 75 mcg tablet 75 mcg PO QAM 08/27/18 03/14/21 History metformin 1,000 mg tablet 500 mg PO BID 08/27/18 03/14/21 History amiodarone 200 mg tablet 100 mg PO QAM tab 12/24/18 03/14/21 History aspirin 81 mg tablet,delayed 81 mg PO QAM 12/24/18 03/14/21 History release (Adult Low Dose Aspirin) finasteride 5 mg tablet 5 mg PO BEDTIME 07/06/20 03/14/21 History atorvastatin 20 mg tablet 20 mg PO QAM 09/23/20 03/14/21 History duloxetine 30 mg capsule,delayed 30 mg PO DAILY 09/23/20 03/14/21 History release esomeprazole magnesium 40 mg 40 mg PO BID 09/23/20 03/14/21 History capsule,delayed release ondansetron HCl 4 mg tablet 4 mg PO TID PRN 09/23/20 03/14/21 History hydrocodone 5 mg-acetaminophen 325 1 tab PO Q6H PRN 10/06/20 03/14/21 History mg tablet magnesium oxide 400 mg (241.3 mg 400 mg PO BID #180 tab 10/08/20 03/14/21 Rx magnesium) tablet glipizide 2.5 mg tablet, extended 2.5 mg PO DAILY 01/14/21 03/14/21 History release 24 hr metoprolol succinate 25 mg 12.5 mg PO BEDTIME 03/14/21 03/14/21 History tablet,extended release 24 hr metoprolol succinate 25 mg 25 mg PO DAILY 03/14/21 03/14/21 History tablet,extended release 24 hr ticagrelor 90 mg tablet (Brilinta) 90 mg PO BID 03/14/21 03/14/21 History Allergies Allergy/AdvReac Type Severity Reaction Status Date / Time Fuwhvor-Rub-Ouf Reductase Allergy Intermediate MUSCLE PAIN Verified 02/06/21 14:29 Inhibitor [EKBCTET-NGI-[id number] REDUCTASE INHIBITOR] piroxicam [PIROXICAM] Allergy Mild NAUSEA, Verified 02/06/21 14:29 VOMITING dabigatran etexilate AdvReac Hematuria Verified 02/06/21 14:29 Review of Systems Constitutional Constitutional: Reports as per HPI Exam Vital Signs (past 8 hours): - 03/17/21 08:07 03/17/21 09:11 03/17/21 11:30 Temperature 97.1 F L 96.6 F L Pulse Rate 71 70 Respiratory Rate 16 14 Blood Pressure 132/77 132/77 134/68 Pulse Oximetry 98 97 Oxygen Delivery Method Room Air Oxygen Flow Rate 0 Narrative Exam Narrative: Elderly gentleman sits up in his bed, at bedside today. He consents to this palliative medicine consultation. Daughters attend conference by telephone. Const General: cooperative, comfortable, well developed, well groomed and acute distress Nutritional Appearance: average body habitus Orientation: oriented x3 Resp Effort & Inspection: normal respiratory effort and able to speak in complete sentences Psych Appearance: grossly normal Mental Status: mental status grossly normal Speech and Movement: speech and movement normal Mood: congruent mood Affect: normal affect Attitude: cooperative Thought Process: normal Thought Content: normal Judgment: judgment good Objective Labs Result Diagrams: 03/17/21 09:57 03/17/21 09:57 Labs: Laboratory Results - last 24 hr 03/16/21 03/17/21 03/17/21 05:36 09:57 09:57 WBC 7.7 RBC 3.96 L Hgb 12.2 L Hct 36.8 L MCV 93.0 MCH 30.9 MCHC 33.2 RDW 15.9 H Plt Count 281 Neut % (Auto) 72.3 Lymph % (Auto) 16.4 L [place] % (Auto) 10.1 Eos % (Auto) 0.6 L Baso % (Auto) 0.6 Neut # (Auto) 5500 Lymph # (Auto) 1300 [place] # (Auto) 800 Eos # (Auto) 0 Baso # (Auto) 0 Sodium 127 L Potassium 4.7 Chloride 95 L Carbon Dioxide 23 BUN 16 Creatinine 1.19 Estimated GFR 58.0 L BUN/Creatinine Ratio 13.4 Glucose 152 H Calcium 9.2 Total Bilirubin 0.7 AST 31 ALT 27 Alkaline Phosphatase 106 Total Creatine Kinase 58 CK-MB (CK-2) TNP CK-MB (CK-2) Rel Index TNP Troponin I < 0.012 NT-Pro-B Natriuret Pep 765 H Total Protein 6.3 Albumin 3.7 Globulin 2.6 Albumin/Globulin Ratio 1.4 Assessment & Recommendations A & R narrative: Discussion: Met with the patient and his at bedside today. His daughters join the dialogue via speakerphone. Both patient and his have a clear understanding of the events that lead up to his hospitalization. They are in receipt of the information that his previous stroke in addition to the severe carotid artery stenosis are likely culprits in his waxing and waning altered mentation, confusion, as well as his symptoms of light headedness with standing and intermittent hypotension. They are also in receipt of the information that his prognosis is likely measured more in months than years. The patient and his does not seem to be surprised by this information, though his daughters are. Patient at this time is reluctant to discuss changing his code status to DNAR, though given his prognosis from his other chronic medical conditions, he would not likely survive resuscitation, and would certainly be unable to return back home with his to [facility]. A copy of the [facility] POLST is provided for review. The couple have discussed the possibility of discharge with Dr. Howard as early as Monday to a local Nursing Home Facility either here or in [place] for a trial of aggressive, rehabilitative supportive care, for up to 7 days. They are encouraged to consider different options for his discharge at that time, depending on how he is doing; he may choose to return to [facility] with home health with V[facility] if he is doing well, versus home to [facility] in the care of a community based hospice agency, should he fail to progress in rehab. The Hospice Medicare Benefit is discussed at some length today. Wilfred and Siri will let Dr. Howard or the care management team know if they feel a visit on Monday would be helpful. It would be my honor to see the patient here in clinic for a follow up consultation if it would be of benefit to he and his family. Reviewed the outcome of this palliative medicine consultation with the medical team. Thank you for allowing our team to be involved in this delightful gentleman's care while hospitalized here at [facility]. We will follow expectantly. Recommendations: - Continue dialogue regarding Advance Care Planning as patient and family request - Plan for discharge as early as Monday to care home for aggressive, restorative therapies Impression: - TIA - Carotid artery stenosis 90-95% on left - ALOC - improved - Confusion - improved - Symptomatic hypotension - pre-syncope - hyponatremia - hypomagnesiumemia - GISELA - History of arrhythmia with sick sinus syndrome and high-grade AV block, pacemaker since 2013 - Palliative Medicine Consultation Coding: To remain informed regarding current treatment opportunities, provider reviewed extensive additional documentation of multiple treatment providers/facilities which was utilized to update the management plan. Total time in review of additional medical information is 23 minutes, external to in person evaluation. Time in assessment and management of acute and chronic medical diagnoses, pertinent history to palliative medicine decision making, discussion and management of clinical findings enumerated above as well as fears regarding the transition to a more end of life plan and and dying is 28 minutes, more than half of which is necessary for education and counseling. Advanced Care Planning discussion time is 22 minutes. The patient currently has testamentary documents for estate planning, DPOAHC but lacks POLST and statement of wishes. Dialogue addresses patient preferences at the end/near end of life including resuscitation wishes (no CPR, DNAR, however, FULL CODE while here at the medical center). Siri has agreed to bring a copy of patient's Advanced Directives for our files at earliest convenience. Time Spent With Patient Time with patient: Greater than 35 minutes
--- NOTE | 2021-03-17 13:46 | CM.DPC ---
DCP SNF vs Home Per MD, pt still having some sodium issues and not quite medically stable yet, aware that if SNF needed would qualify under Medicare on Monday. Pall Care Consult with Tierney and pt/spouse bedside scheduled for today at 1530 as pt has continued to slowly decline in health since his stroke in 2019. Per PT, due to pt's low activity tolerance and fatigue and bp issues, currently recommending SNF prior to return home. SW met bedside with pt and spouse and explained role and discussed home with Vijaya OLSON with added RN and CONFECTIONERY COOKER vs possible SNF. Spouse confirms that SNF will likely be needed before safely discharging home. Preference is still [facility] due to location near home and SW provided the SNF Choice list and discussed [facility] may be full and back up preference is [facility] and they are familiar with [facility] but feel [facility] is reasonable distance for spouse to travel for visiting. [facility] not currently accepting new admissions as they have a G.I. bug going around their residents. ARMIDA Michel kindly sent referral to [facility] to review in case [facility] is full at d/c. PASRR completed in anticipation of SNF. Plan: SW to follow closely after Pall Care Consult today with pt/spouse at 1530 towards confirming plan is ongoing treatment at SNF and not just comfort. Pepper Ortiz MSW
--- NOTE | 2021-03-17 13:59 | P.PN_ITS ---
Subjective Subjective Date Patient Seen: 03/17/21 Time Patient Seen: 14:02 Interval history: Patient doing somewhat better today. He is more alert. He still is sleeping a lot. Has very poor p.o. intake. He still had orthostatic hypotension when working with OT. But his systolic blood pressure went down to 93 and stat of 80 and he was not as symptomatic. He wanted to sit down not because he was dizzy but just because he was tired. He denies any pain. He c ontinues to be confused and have decreased cognition. Exam Vital Signs (past 8 hours): - 03/17/21 08:07 03/17/21 09:11 03/17/21 11:30 Temperature 97.1 F L 96.6 F L Pulse Rate 71 70 Respiratory Rate 16 14 Blood Pressure 132/77 132/77 134/68 Pulse Oximetry 98 97 Oxygen Delivery Method Room Air Oxygen Flow Rate 0 Narrative Exam Narrative: Afebrile, vital signs stable HEENT unremarkable Neck: Supple without adenopathy Chest: Clear to auscultation without wheezes rhonchi or crackles Cor: Irregular irregular rhythm at a well-controlled rate Abdomen: Positive bowel sounds, soft, nontender, nondistended Extremities: No edema, pulses intact Neurologic exam nonfocal Objective Labs Result Diagrams: 03/17/21 09:57 03/17/21 09:57 Labs: Laboratory Results - last 24 hr 03/16/21 03/17/21 03/17/21 05:36 09:57 09:57 WBC 7.7 RBC 3.96 L Hgb 12.2 L Hct 36.8 L MCV 93.0 MCH 30.9 MCHC 33.2 RDW 15.9 H Plt Count 281 Neut % (Auto) 72.3 Lymph % (Auto) 16.4 L [place] % (Auto) 10.1 Eos % (Auto) 0.6 L Baso % (Auto) 0.6 Neut # (Auto) 5500 Lymph # (Auto) 1300 [place] # (Auto) 800 Eos # (Auto) 0 Baso # (Auto) 0 Sodium 127 L Potassium 4.7 Chloride 95 L Carbon Dioxide 23 BUN 16 Creatinine 1.19 Estimated GFR 58.0 L BUN/Creatinine Ratio 13.4 Glucose 152 H Calcium 9.2 Total Bilirubin 0.7 AST 31 ALT 27 Alkaline Phosphatase 106 Total Creatine Kinase 58 CK-MB (CK-2) TNP CK-MB (CK-2) Rel Index TNP Troponin I < 0.012 NT-Pro-B Natriuret Pep 765 H Total Protein 6.3 Albumin 3.7 Globulin 2.6 Albumin/Globulin Ratio 1.4 PFSH Medical History Anxiety CAD (coronary artery disease) DDD (degenerative disc disease), cervical Depression Diabetes Dyslipidemia Dysuria Elevated serum homocysteine level History of angina History of CVA (cerebrovascular accident) History of dizziness History of esophageal reflux History of fatigue History of hematuria Impotence Lumbosacral radiculopathy at L5 Memory deficit Neuropathy of both feet Osteoarthritis Pacemaker (~2013) Paroxysmal A-fib 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 RBBB Renal insufficiency Sick sinus syndrome Sleep apnea (~2012) Spinal stenosis in cervical region Spinal stenosis of lumbar region TIA (transient ischemic attack) Urinary retention Surgical History H/O laminectomy H/O shoulder surgery H/O thumb surgery History of appendectomy History of bladder surgery History of cardiac cath (~2012) History of cholecystectomy (~2012) History of cystoscopy History of lumbar fusion History of tonsillectomy History of vasectomy S/P drug eluting coronary stent placement Status post right foot surgery Social History marital status: details: aisha Horner, lives in [place] household members: spouse lives independently: Yes caregiver/support person: No housing: house Smoking Status: Never smoker alcohol intake: current substance use type: does not use Assessment & Plan Assessment & Plan narrative: Assessment & Plan Assessment & Plan narrative: Assessment & Plan Assessment & Plan narrative: 1. Altered consciousness, suspect multifactorial. I think he clearly has an element of metabolic encephalopathy. He may have had a TIA as well. With possible recent TIA. CT angio did not show acute injury. Were unable to do the MRI due to pacemaker. At this point I think that his symptoms are more likely related to the CVA that he had in December and the subsequent tPA. I think he has having gradual decline since this time with some memory issues as well. At this point will continue his current medications for risk reduction. We discussed options that would be more aggressive and that are complicated because of his age and multiple comorbidities and at this point neither he nor his who is the durable power of ip technology transactions attorney want any further aggressive intervention. Patient with some improvement in engagement and alertness. Still continues to sleep a lot have a poor appetite and not be oriented to place or time. Suspect that this is gradual decline complicated by acute illness. Again lengthy discussion with . Plan is that he will go to skilled care facility for approximately a week to see if we can strengthen him and then he will go home. If there is no improvement he will go home. Palliative care consult today. Will change to normal saline IV fluids and reassess sodium in the a.m.. Will continue with physical therapy and occupational therapy. Plan: 2. History of CVA/TIA Plan: With possible recent TIA. CT angio did not show acute injury. Were unable to do the MRI due to pacemaker. At this point I think that his symptoms are more likely related to the CVA that he had in December and the subsequent tPA. I think he has having gradual decline since this time with some memory issues as well. At this point will continue his current medications for risk reduction. We discussed options that would be more aggressive and that are complicated because of his age and multiple comorbidities and at this point neither he nor his who is the durable power of ip technology transactions attorney want any further aggressive intervention. 3. Hyperlipidemia, chronic Plan: Continue home atorvastatin 20 mg p.o. q.h.s.. 4. Atrial fibrillation, paroxysmal Plan: Continue amiodarone 100 mg p.o. b.i.d., metoprolol 25 mg PO qam and 12.5 mg PO qhs and aspirin 81 mg p.o. q.day. Telemetry. Dr. Arteaga, cardiology consulting as outpatient. Due to patient's left atrial occlusion, does not need to be on anticoagulation. 5. Diabetes mellitus type 2 Plan: Diabetic diet, continue home metformin and glipizide. Will continue with monitoring blood sugars. 6. Hypothyroidism Plan: Continue home levothyroxine 75 mcg p.o. q.day 7. Benign prostatic hypertrophy with urinary retention, chronic Plan: Continue finasteride 5 mg p.o. q.h.s.. No acute issues 8. Coronary artery disease, chronic Plan: Continue, brilinta and statin as noted above. Nitro as needed. No acute issues at this time. 9. Acute renal insufficiency Improved. Expect continued improvement with IV fluids. Plan: Continues to be stable. Will reassess in a.m. 10. History of arrhythmia with sick sinus syndrome and high-grade AV block, kandi bolton since 2013 Plan: Continue with current amiodarone. 11. Hypoomagnesemia. Plan: Continue magnesium 400 mg p.o. b.i.d. 12. Depression/anxiety Plan: Continue home duloxetine 30 mg p.o. qd. 13. Anemia, normocytic / normochromic, chronic Plan: Likely anemia of chronic disease, will treat underlying diseases. 14. Hyponatremia, worsening possibly contributing to decreased cognition and confusion as well as fatigue Plan: Will change to normal saline at 1:20 a.m. 5 cc an hour. Will recheck labs in a.m.. 15. Orthostatic hypotension possibly relative dehydration. Improved with IV f luid rehydration. Also decreased metoprolol by half tablet. We may need to tolerate a higher systolic blood pressure to prevent him from getting orthostatic hypotension. Reviewed his echo which did show improved ejection fraction at the low normal. His cardiac enzymes were negative. He needs to wear compression stockings. Plan is to transfer on Monday to skilled care facility for further PT and strengthening with then hopes of sending him home. Disposition: Plan for transfer to skilled care facility on Monday for strengthening and giving this a trial for 1 week. If it is not effective he will go home. Tele diff care consult today. DVT prophylaxis: SCDs Code status: DNR/DNI COVID: Negative Disposition: continued hospitalization necessary due worsening hyponatremia and now with significant orthostatic hypotension with systolic blood pressure dropping to 80. Signed By:<Electronically signed by Diane Howard MD>03/16/21 1132
--- NOTE | 2021-03-17 14:02 | CM.DPNOTE ---
Faxed referral packet to [facility] at [facility]'s request on 03/17/21 and received fax confirmation. Marilu Banuelos CM Asst.
[2021-03-17] MEDS: FINASTERIDE 5 MG TABLET PO (21:15)
[2021-03-18] VITALS (7 sets, daily range): BP systolic 78–184; BP diastolic 52–90; PULSE 59–74; RESP 16–18; TEMP 36.2–36.9; O2SAT 97–98
--- NOTE | 2021-03-18 02:26 | PC.NURSE ---
Patient is more alert tonight than when RN cared for him 2 days ago. Oriented except to day of week and stated year was 1920. Breath sounds CTA with RA sat of 98%. HRR w/telemetry reading of SR w/BBB. BP trends high and was 152/74. Denies nausea. BT present and is passing flatus. Voiding per urinal; denies dysuria but is voiding frequently. Is able to turn himself in bed. Up with walker and SBA for safety due to weakness. Denies pain. Chronic bilateral foot neuropathy. Wearing bilateral calf SCD's. Fall risk score is high and bed alarm is activated.
[2021-03-18] MEDS: SODIUM CHLORIDE 0.9% 1,000 ML 125 ML IV (03:45)
[2021-03-18] MEDS: LEVOTHYROXINE 75 MCG TABLET PO (05:57)
[2021-03-18 06:29] LABS: Add Manual Diff / Slide Review NO; Basophils Absolute Auto 100 /uL (0-100); Basophils Percent Auto 0.8 % (0-2); Eosinophils Absolute Auto 100 /uL (0-450); Eosinophils Percent Auto 1.3 % (2-4); Hematocrit 36.4 % (41-53); Lymphocytes Absolute Auto 1000 /uL (1100-4500); Lymphocytes Percent Auto 16.1 % (25-40); Mean Corpuscular HGB Conc 32.9 % (30-36); Mean Corpuscular Hemoglobin 30.6 PG (26-34); Monocytes Absolute Auto 700 /uL (0-900); Monocytes Percent Auto 10.6 % (3-14); Neutrophils Absolute Auto 4600 /uL (1500-7000); Neutrophils Percent Auto 71.2 % (50-75); Platelet Count 273 X10^3/uL (150-400); Red Blood Cell Count 3.92 X10^6/uL (4.5-5.9); Red Cell Distribution Width 15.8 % (11.6-14.8); White Blood Cell Count 6.4 X10^3/uL (4.5-11.0)
[2021-03-18 06:37] LABS: BUN Creatinine Ratio 12.1 (6-22); Blood Urea Nitrogen 14 mg/dL (9-20); Calcium 9.1 mg/dL (8.4-10.2); Carbon Dioxide 22 mmol/L (22-32); Chloride 100 mmol/L (98-107); Estimated Glomerular Filt Rate 59.7 mL/min (>60); Glucose 136 mg/dL (80-110); HEMOLYSIS < 15 (0-50); Potassium 4.2 mmol/L (3.4-5.1); Sodium 130 mmol/L (137-145)
--- NOTE | 2021-03-18 08:38 | PM.PN.1 ---
Subjective Subjective Date Patient Seen: 03/18/21 Time Patient Seen: 08:50 Interval history: Pt sitting up in bed examining menu chief complaint: weakness Exam Vital Signs (past 8 hours): - 03/18/21 04:15 03/18/21 08:02 Temperature 97.3 F L 97.2 F L Pulse Rate 70 59 L Respiratory Rate 16 18 Blood Pressure 184/80 H 103/67 Pulse Oximetry 98 97 Oxygen Delivery Method Room Air Oxygen Flow Rate 0 Const General: cooperative, comfortable, well developed and No acute distress HENMT Head: normal to inspection Neck Neck: normal visual inspection and No lymphadenopathy Resp Effort & Inspection: normal respiratory effort and able to speak in complete sentences Cardio Other: irregularly irregular rhythm, normal rate GI Other: SNTND with decreased bowel sounds Psych Appearance: grossly normal Mental Status: mental status grossly normal Speech and Movement: speech and movement normal Other: interactive and discursive on topics of shrimping and his marriage. Aware of plan to go to rehab. Oriented to city and building but not year. Objective Labs Result Diagrams: 03/18/21 05:41 03/18/21 05:41 Labs: Laboratory Results - last 24 hr 03/17/21 03/17/21 03/18/21 09:57 09:57 05:41 WBC 7.7 6.4 RBC 3.96 L 3.92 L Hgb 12.2 L 12.0 L Hct 36.8 L 36.4 L MCV 93.0 93.0 MCH 30.9 30.6 MCHC 33.2 32.9 RDW 15.9 H 15.8 H Plt Count 281 273 Neut % (Auto) 72.3 71.2 Lymph % (Auto) 16.4 L 16.1 L [place] % (Auto) 10.1 10.6 Eos % (Auto) 0.6 L 1.3 L Baso % (Auto) 0.6 0.8 Neut # (Auto) 5500 4600 Lymph # (Auto) 1300 1000 L [place] # (Auto) 800 700 Eos # (Auto) 0 100 Baso # (Auto) 0 100 Sodium 127 L Potassium 4.7 Chloride 95 L Carbon Dioxide 23 BUN 16 Creatinine 1.19 Estimated GFR 58.0 L BUN/Creatinine Ratio 13.4 Glucose 152 H Calcium 9.2 Total Bilirubin 0.7 AST 31 ALT 27 Alkaline Phosphatase 106 Total Protein 6.3 Albumin 3.7 Globulin 2.6 Albumin/Globulin Ratio 1.4 03/18/21 05:41 WBC RBC Hgb Hct MCV MCH MCHC RDW Plt Count Neut % (Auto) Lymph % (Auto) [place] % (Auto) Eos % (Auto) Baso % (Auto) Neut # (Auto) Lymph # (Auto) [place] # (Auto) Eos # (Auto) Baso # (Auto) Sodium 130 L Potassium 4.2 Chloride 100 Carbon Dioxide 22 BUN 14 Creatinine 1.16 Estimated GFR 59.7 L BUN/Creatinine Ratio 12.1 Glucose 136 H Calcium 9.1 Total Bilirubin AST ALT Alkaline Phosphatase Total Protein Albumin Globulin Albumin/Globulin Ratio PFSH Medical History Anxiety CAD (coronary artery disease) DDD (degenerative disc disease), cervical Depression Diabetes Dyslipidemia Dysuria Elevated serum homocysteine level History of angina History of CVA (cerebrovascular accident) History of dizziness History of esophageal reflux History of fatigue History of hematuria Impotence Lumbosacral radiculopathy at L5 Memory deficit Neuropathy of both feet Osteoarthritis Pacemaker (~2013) Paroxysmal A-fib 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 RBBB Renal insufficiency Sick sinus syndrome Sleep apnea (~2012) Spinal stenosis in cervical region Spinal stenosis of lumbar region TIA (transient ischemic attack) Urinary retention Surgical History H/O laminectomy H/O shoulder surgery H/O thumb surgery History of appendectomy History of bladder surgery History of cardiac cath (~2012) History of cholecystectomy (~2012) History of cystoscopy History of lumbar fusion History of tonsillectomy History of vasectomy S/P drug eluting coronary stent placement Status post right foot surgery Social History marital status: details: to Siri, lives in [place] household members: spouse lives independently: Yes caregiver/support person: No housing: house Smoking Status: Never smoker alcohol intake: current substance use type: does not use Assessment & Plan Assessment & Plan narrative: #Altered consciousness, suspect multifactorial. Metabolic encephalopathy w/ hx of repeat CVA/TIAs with tPA administration last in December.Unclear that he ever rehabbed back to baseline. Unable to MRI due to pacemaker. PCP thinks he has having gradual decline since this time with some memory issues as well. At this point will continue his current medications for risk reduction. Options were discussed that would be more aggressive and that are complicated because of his age and multiple comorbidities and at this point neither he nor his who is the durable power of prosecuting attorney want any further aggressive intervention. Mild improvement noted inpatient. Plan is that he will go to skilled care facility for approximately a week to see if we can strengthen him and then he will go home. If there is no improvement he will go home. Palliative care consult yesterday. Continue with physical therapy and occupational therapy. Electrolytic derangements normalizing today continue to monitor #History of CVA/TIA Plan: Possible recent new event, CTA head was clear, unable to do MRI due to pacemaker. At this point I think that his symptoms are more likely related to the CVA that he had in December and the subsequent tPA. I think he has having gradual decline since this time with some memory issues as well. At this point will continue his current medications for risk reduction. We discussed options that would be more aggressive and that are complicated because of his age and multiple comorbidities and at this point neither he nor his who is the durable power of prosecuting attorney want any further aggressive intervention. #Hyperlipidemia, chronic Plan: home atorvastatin 20 mg p.o. q.h.s.. he has documented sensitivity to higher doses #Atrial fibrillation, paroxysmal Plan: Continue amiodarone 100 mg p.o. b.i.d., metoprolol 25 mg PO qam and 12.5 mg PO qhs and aspirin 81 mg p.o. q.day. Telemetry. Dr. Arteaga, cardiology consulting as outpatient. Due to patient's left atrial occlusion, does not need to be on anticoagulation. #Diabetes mellitus type 2 Plan: Diabetic diet, continue home metformin and glipizide. Will continue with monitoring blood sugars. #Hypothyroidism Plan: Continue home levothyroxine 75 mcg p.o. q.day #Benign prostatic hypertrophy with urinary retention, chronic Plan: Continue finasteride 5 mg p.o. q.h.s.. No acute issues #Coronary artery disease, chronic Plan: Continue brilinta and statin as noted above. Nitro as needed. No acute issues at this time. #Acute renal insufficiency Improved. Expect continued improvement with IV fluids. Plan: Continues to be stable. Will reassess in a.m. #History of arrhythmia with sick sinus syndrome and high-grade AV block, pacemaker since 2013 Plan: Continue with current amiodarone. # Hypoomagnesemia. Plan: Continue magnesium 400 mg p.o. b.i.d. #Depression/anxiety Plan: Continue home duloxetine 30 mg p.o. qd. #Anemia, normocytic / normochromic, chronic Plan: Likely anemia of chronic disease, will treat underlying diseases. Continues to trend downward slightly suspect dilutional he has been getting a lot of IVF. #Hyponatremia, worsening possibly contributing to decreased cognition and confusion as well as fatigue Plan: improving on NS 125 mL/hr overnight, kidneys seem to be holding up, continue at 100mL/hr #Orthostatic hypotension possibly relative dehydration. Improved with IV fluid rehydration. Also decreased metoprolol by half tablet. We may need to tolerate a higher systolic blood pressure to prevent him from getting orthostatic hypotension. Reviewed his echo which did show improved ejection fraction at the low normal. His cardiac enzymes were negative. He needs to wear compression stockings. Plan is to transfer on Monday to skilled care facility for further PT and strengthening with then hopes of sending him home. Disposition: Plan for transfer to skilled care facility on Monday for strengthening for 1 week. If it is not effective he will go home. DVT prophylaxis: SCDs Code status: DNR/DNI COVID: Negative Disposition: continued hospitalization necessary due to hyponatremia and significant orthostatic hypotension with systolic blood pressure dropping to 80.
[2021-03-18] MEDS: ATORVASTATIN 20 MG TABLET PO (10:05)
[2021-03-18] MEDS: AMIODARONE 200 MG TABLET 100 MG PO (10:06)
[2021-03-18] MEDS: METFORMIN HCL 500 MG TABLET PO (10:06)
[2021-03-18] MEDS: METOPROLOL ER 25 MG TABLET 12.5 MG PO ×2 (10:06→20:42)
[2021-03-18] MEDS: PANTOPRAZOLE DR 40 MG TABLET PO ×2 (10:06→20:43)
[2021-03-18] MEDS: DULOXETINE 30 MG CAPSULE PO (10:07)
[2021-03-18] MEDS: ASPIRIN EC 81 MG TABLET PO (10:07)
[2021-03-18] MEDS: MAGNESIUM OXIDE 400 MG TABLET PO ×2 (10:07→20:43)
--- NOTE | 2021-03-18 11:25 | ST.IPTN ---
Visit Care Team Role Provider Type MOLLY Mars Other Providers Advanced Corporate Executive Chef Address: [address] [place] [address], [address] Priya Magdaleno DO Emergency Provider Physician Referring Provider Address: [address] [place] [address], [id number] Diane Howard MD Attending Provider Physician Primary Care Provider Address: [address] [place] [address], [address], [place], [address] Tabitha Pratt MD Admit Provider Physician Address: [address] [place] [address], [facility] [place], [address] CRUTCHING CONTRACTOR Treatment Note CRUTCHING CONTRACTOR Clinical Instructor Line Start: 03/16/21 16:35 Freq: Status: Active Protocol: Document 03/16/21 17:40 [email or web address] (Rec: 03/16/21 17:40 [id number]) Clinical Instructor Signature Clinical Instructor Clinical Instructor Yes CRUTCHING CONTRACTOR Treatment Note Start: 03/15/21 11:44 Freq: Status: Active Protocol: Document 03/18/21 11:21 MG (Rec: 03/18/21 11:25 MG [id number]) Speech Pathology Treatment Note Session Time Visit Start Time 09:45 Visit Stop Time 09:55 Total Visit Minutes 10 Setting Treatment Setting Acute Care Visit Type Note Type Treatment Note Next Note Type Next Note Type Treatment Note General Information General Information Pt is an 86-yr-old male who was admitted after presenting to ED with increased confusion , worsening speech and new left-sided weakness, which resolved on the floor and he was back to his baseline with a NIH stroke scale of 0. 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 CT angiogram head/ neck notably was negative for acute stroke. Pt has a pacemaker, so MRI was unobtainable. Subjective Observations/Patient Presentation Pt was resting in bed with at bedside. Pt expressed being tired and complained of not sleeping well. Chief Complaint(s) Language,Cognitive Patient Knowledge/Awareness of CRUTCHING CONTRACTOR Role Good in Treatment Parent/Caretake Knowledge/Awareness of Good CRUTCHING CONTRACTOR Role in Treatment Objective Short Term Goals 1. The pt will participate in further assessment of expressive, receptive, and cognitive communication skills to guide POC. 2. Given visual prompts as needed, the pt will demonstrate orientation to person, place, time, and current personal events with 80% accuracy to improve orientation necessary to participate in decision making related to his care. Overhead Garage Door Hanger Goals 1. The pt will demonstrate sufficient expressive, receptive and cognitive communication skills to participate in medical decisions and express wants/ needs. Treatment Activities CRUTCHING CONTRACTOR provided education as necessary to the pt/spouse with recommendations for environmental modifications in the pt's functional environment to support cognitive and communication skills, in anticipation of the pt discharging to SNF, then home with home health. Pt and had no further questions/ concerns for the CRUTCHING CONTRACTOR at this time. Pt and were agreeable to recommendations made. Assessment Patient Response to Treatment Fair Rehab Potential Fair Impairments Identified Cognitive-Linguistic Skills, Expressive Language,Receptive Language Progress Towards Goals Slow Progress Assessment of Overall Progress Improving Assessment of Improvement The pt and his were receptive to all education and recommendations provided today and in agreement. The pt was minimally communicative beyond stating how tired he was. Per Nsg, he appears to be more oriented to time, place and persons. He and his would benefit from ongoing Speech Therapy services at SNF or Home to assist in development of compensatory strategies to support cognition and language and to target word retrieval strategies and orientation in order for the pt to effectively participate in conversations and decisions related to his health care and QOL. Reviewed with Patient Goals,Progress Being Made,Home Exercise Program Patient/Caregiver Understanding Good Plan Frequency of Treatment No Further Therapy Comment Therapy will continue at [facility] and Treatment Emphasis Next Session No further education needed at this time. Therapeutic Contents Client Education,Cognitive- Linguistic Training,Expressive Language Training,Receptive Language Training Provided Patient/Caregiver Instruction Home Exercise Program,Plan of Care,Questions/Concerns Therapy Recommendations Discharge from Speech Therapy Comment Pt will discharge soon and ST will follow up at facility.
--- NOTE | 2021-03-18 14:56 | CM.DPC ---
Addendum entered by Gissell Lockwood LPN 03/18/21 15:46: Siri is here and vaccine copies are faxed now to [facility]. Pt confirms he wants to sign the POLST form as a DNR and this is now completed in company of his . The physician will need to sign this to complete it's validity. Both pt and Siri are expecting that that Dr. Mccartney will return later today and Siri will obtain his signature if so. Otherwise both are hopeful the the rounding physician for tomorrow will be here in the morning and Siri plans to be at the hospital at 0730 to wait for him/her. She says she was here this morning but went to get coffee and missed him. Siri also wanted to make sure the Vijaya could see pt again when he does d/c from the snf. She understands that it will likely take a bit longer that 7 days to see if pt is stable for a d/c back to [facility]. Will check in again tomorrow and be following. Addendum entered by Gissell Lockwood LPN 03/18/21 15:14: Met with pt who confirmed that his plan was for rehab at [facility] and that his Siri should be back to the hospital soon. Did speak earlier today with Kamlesh/Admissions [facility]: he confirmed acceptance if pt is ready for d/c 7/ or >. Spoke then by phone with Siri. She confirms both are fully vaccinated and she is bringing in the cards today. She was updated by [facility] acceptance. Discussed overall POC. She stated the palliative discussion was helpful but said the her felt quite overwhelmed with it all and thus he was reluctant to even to make the designation for DNAR on the POLST from ( and he was said for a long time that he does not want CPR attempted). She said the POLST was left for them in the room and she plans to go over the DNAR piece with her again this evening. Also had brief discussion re what HHS and Hospice provide in terms of basic care needs that a MENTAL HEALTH WORKER or Alarm Service Technician on a private pay basis provide. [facility], where both reside, is a half-way facility only with no managed care manager staff. Siri with several questions re the COVID precautions/visitor policy at [facility] and Kamlesh agrees to call her for further discussion. Original Note: DCP: continued. EMR reviewed as well as consult note from palliative care MOLLY Reyna.
--- NOTE | 2021-03-18 14:58 | CM.DPNOTE ---
Called Diane at [facility] to let her know pt. is going to a SNF (Gissell's request). Marilu Banuelos CM Asst.
[2021-03-18] MEDS: MIDODRINE HCL 5 MG TABLET 2.5 MG PO (15:31)
--- NOTE | 2021-03-18 16:55 | PT.IPTN ---
Current Diagnoses Altered mental status, unspecified (03/16/21) Physical Therapy Treatment Note M2 PT-IP Current Condition Start: 03/15/21 09:10 Freq: NEEDED Status: Active Protocol: Document 03/15/21 14:08 AW (Rec: 03/15/21 15:12 AW [id number]) Physical Therapy Current Condition Current Condition Evaluation Date 03/15/21 Treatment Diagnosis weakness, confusion; impaired mobility and gait Onset Date 03/13/21 Precautions Other Precautions falls M3 PT-IP Subjective Start: 03/15/21 09:10 Freq: NEEDED Status: Active Protocol: Document 03/18/21 16:55 AB (Rec: 03/18/21 18:08 AB [email or web address]) Subjective Physical Therapy Visit Type Type Treatment Note Visit Start Time 16:55 Visit Stop Time 17:25 Total Visit Minutes 30 Number of INTERNAL COMBUSTION ENGINE INSPECTOR Visits 0 Physical Therapy Visit Comments Patient Comments spouse in room. pt is agreeable to do PT; spouse stated that pt's blood sugar was low and nurse gave pt orange juice. checked with nurse and cleared pt to do PT. Therapy Pain Assessment Pain Present Pain Present Denied Pain M4 PT-IP Mobility and Gait Start: 03/15/21 09:10 Freq: NEEDED Status: Active Protocol: Document 03/18/21 16:55 AB (Rec: 03/18/21 18:08 AB [email or web address]) PT-Bed Mobility Assessment Supine to Sit Supine to Sit Standby Assistance Scooting Scooting to Edge of Bed Standby Assistance PT-Transfer Assessment Sit to and From Stand Sit to and from Stand Contact Guard Assistance Equipment Transfer Assistive Device Gait Belt,Front Wheeled Walker Orthotic/Prosthetic Devices or Brace: No Transfers Transfer Destination Chair Transfer Technique Stand Step Pivot Transfer Ability Level of Assist Contact Guard Assistance,1 Person Assistance,Use of Upper Extremities Comments Mobility Comments monitored BP. BP in bed with HOB elevated: 186/95. pt completed supine to sit SBA. pt was able to sit on EOB SBA. BP checked: 145/87. pt without c/o dizziness/ lightheadedness. BP checked again in sitting after ~ 2 min : 165/79. pt completed sit to stand CGA. pt tolerated ~ 1- 2 min standing. BP checked in standin/56. pt stated that he has to sit down with c /o slight ooziness. BP checked again in sittin/ 86. pt stated that he wants to sit up on the chair. completed sit to stand CGA and step transfer to chair using FWW CGA. BP checked after transfer: 145/69. positioned pt on chair. call light and table placed within reach. chair alarm on. Left pt with spouse in room. M5 PT-IP Objective Assessments Start: 03/15/21 09:10 Freq: NEEDED Status: Active Protocol: Document 03/15/21 14:08 AW (Rec: 03/15/21 15:23 AW [id number]) Orientation Orientation/Cognition Level of Alertness Confusional State Orientation Name,Place,Situation Safety Awareness Decreased Safety Awareness Memory Description Short Term Impaired Comments Pt was soft spoken and his frequently spoke for him although he was able to communicate his needs. Gross Range of Motion Lower Extremity ROM Assessment Bilaterally Impaired Impairments Lacking knee extension, slight flexion contractures bilaterally Strength Lower Extremity Strength Assessment Bilaterally Impaired Hip 3+/5 Knee 3+/5 Sensation Assessment Sensation Gross Sensation WNL Muscle Tone Muscle Tone WNL Yes M6 PT-IP Treatment Start: 03/15/21 09:10 Freq: NEEDED Status: Active Protocol: Document 03/18/21 16:55 AB (Rec: 03/18/21 18:08 AB [email or web address]) Physical Therapy Treatment Education Education Provided Safety M7 PT-IP Assessment and Plan Start: 03/15/21 09:10 Freq: NEEDED Status: Active Protocol: Document 03/18/21 16:55 AB (Rec: 03/18/21 18:08 AB [email or web address]) PT Summary Assessment and Plan Potential Rehabilitation Potential Fair Summary Impairments Pain,ROM,Strength,Balance, Cognition,Bed Mobility, Transfers,Gait,Activity Tolerance Progress Towards Goals Slow Progress due to Medical Issues,Slow Progress due to Activity Tolerance,Slow Progress - Other Assessment Summary pt continues to have decrease activity tolerance with decrease in BP with upright activity. pt will require SNF rehab to improve overall strength and functional independence. Goals Bed Mobility Goal Standby Assistance Transfer Goal Standby Assistance,Front Wheeled Walker Gait Goal Standby Assistance,Front Wheel Walker Gait Distance 20 Days to Meet Goals 10 Frequency of Treatment Frequency Of Treatment Once a Day Treatment Plan Physical Therapy Treatment Plan Bed Mobility Training,Transfer Training,Gait Training, Therapeutic Exercise,Balance Retraining,Discharge Planning, Neuromuscular Re-ed Precautions Other Precautions falls, monitor BP Recommendations To Nursing Amount of Assist Needed 1 Person Assist Discharge Recommendations PT Discharge Recommendations SNF Rehab Transportation Needs at Discharge Private Vehicle,Wheelchair/ Cabulance
--- NOTE | 2021-03-18 17:21 | OT.IP.TRT ---
Current Diagnoses Altered mental status, unspecified (03/16/21) Occupational Therapy Treatment Note M2 OT-IP Current Condition Start: 03/15/21 15:43 Freq: Status: Active Protocol: Document 03/15/21 13:35 [facility] (Rec: 03/15/21 16:01 [facility] [id number]) Occupational Therapy Current Condition Current Condition Evaluation Date 03/15/21 Treatment Diagnosis Weakness, confusion Diagnosis Onset Date 03/14/21 M3 OT- IP Subjective and Pain Start: 03/15/21 15:43 Freq: Status: Active Protocol: Document 03/18/21 17:12 [facility] (Rec: 03/18/21 17:21 [facility] [id number]) OT- Subjective Occupational Therapy Visit Type Type Treatment Note Visit Start Time 16:10 Visit Stop Time 16:24 Total Visit Minutes 14 Occupational Therapy Visit Comments Patient Comments Pt agreed to get up and having to use the urinal. Patient/Caregiver Goals To get better. OT Pain Assessment Pain When Pain Assessed At Rest Pain Present Pain Present Denied Pain M4 OT- IP ADL's Start: 03/15/21 15:43 Freq: Status: Active Protocol: Document 03/18/21 17:12 [facility] (Rec: 03/18/21 17:21 [facility] [id number]) OT [id number] Comments OT Self-Feeding Comments Not at meal time. OT ADL-Grooming Comments OT Grooming Comments NOt performed. OT ADL-Oral Care Comments Oral Care Comments Not performed. OT ADL-Toileting General Evaluation Toileting Ability Maximum Assistance Areas Needing Assistance Perform Perineal Hygiene Comments OT Toileting Comments Nursing aid able to hold urinal in place while pt standing to urinate. OT ADL-Bathing Comments OT Bathing Comments Not performed. M5 OT- IP IADL's Start: 03/15/21 15:43 Freq: Status: Active Protocol: Document 03/15/21 13:35 [facility] (Rec: 03/15/21 16:01 [facility] [id number]) OT-Instrumental Activities of Daily Living Deficits IADL Deficits Identified Deficits Home Safety Awareness Awareness of Need for Assistance at Home Decreased Awareness Medication Management Medication Management Caregiver Administers Money Management Money Management Caregiver Provides Assistance Meal Preparation Meal Preparation Caregiver Provides Assist Elevator Erector Elevator Erector Caregiver Provides Assist M6 OT- IP Functional Cognition Start: 03/15/21 15:43 Freq: Status: Active Protocol: Document 03/18/21 17:12 [facility] (Rec: 03/18/21 17:21 [facility] [id number]) Cognitive Factors Limiting Selfcare Function Cognitive Ability Level of Alertness Alert Patient Orientation Name Attention Span Ability Capable of Focused Attention, Capable of Sustained Attention Ability to Follow Commands Able to Follow One Step Commands with Increased Time, Able to Follow One Step Commands with Repetition Cognitive Comments Cognitive Assessment Comments Pt alert today and able to follow commands and partake in conversation better today. M7 OT- IP Mobility and Balance Start: 03/15/21 15:43 Freq: Status: Active Protocol: Document 03/18/21 17:12 [facility] (Rec: 03/18/21 17:21 [facility] [id number]) OT- Bed Mobility Assessment Supine to Sit Supine to Sit Assist Standby Assistance Sit to Supine Sit to Supine Assist Standby Assistance OT-Transfer Assessment Sit to and From Stand Sit to and from Stand Contact Guard Assistance Technique Transfer Destination Bed Transfer Technique Stand Step Pivot Devices Transfer Assistive Devices Gait Belt,Front Wheeled Walker Comments Mobility Comments Pt supine in bed 183/90, sitting at edge of bed 138/81, and standing 105/56, sitting 157/78 and back to supine 182/ 101. Pt mainly having symptoms of feeling weak and getting shakey. Nursing notified of BP numbers. Pt SBA to get out of bed which is more his baseline and still needing some use of momentum to assist . OT- Balance Assessment Sitting Balance and Reactions Static Sitting Balance Ability Good Dynamic Sitting Balance Ability Good Standing Balance and Reactions Static Standing Balance Ability Fair Comments Other Balance Tests/Deviations/Treatment Pt able to stand without : posterior lean with FWW today with CGA. M9 OT- IP Assessment and Plan Start: 03/15/21 15:43 Freq: Status: Active Protocol: Document 03/18/21 17:12 [facility] (Rec: 03/18/21 17:21 [facility] [id number]) OT Summary Assessment and Plan Potential Rehabilitation Potential Fair Analytic Complexity at Evaluation Moderate Summary OT Impairments Strength,Balance,Functional Cognition,Functional Mobility, Grooming,Dressing,Toileting, Bathing,Toilet Transfers, Shower Transfers,Activity Tolerance Progress Towards Goals Progressing Toward Goals Assessment Summary Pt still decreasing BP with orthostatic reading. However pt much improved for his mobility needs at this time. Pt looking to go to skilled rehab when medically stable. Goals Self-Feeding Goal Standby Assistance Grooming Goal Standby Assistance Dressing Goal Minimal Assistance Toileting Goal Minimal Assistance Bathing Goal Minimal Assistance Toilet Transfer Goal Contact Guard Assistance Shower Transfer Goal Contact Guard Assistance Patient/Caregiver Education Goal Caregiver Independent Assisting Patient Days to Meet Goals 10 Frequency of Treatment Frequency Of Treatment Once a Day Treatment Plan OT Treatment Plan ADL Training,Functional Cognition Training,Functional Mobility,Patient/Family Education,Discharge Planning Other Treatment Recommendations and Next Shower if BP is stable. Treatment Focus Discharge Recommendations OT Discharge Recommendations SNF Transportation Needs at Discharge Wheelchair/ Cabulance
[2021-03-18] MEDS: FINASTERIDE 5 MG TABLET PO (20:43)
[2021-03-18] MEDS: SODIUM CHLORIDE 0.9% FLUSH 10 ML IV (20:43)
--- NOTE | 2021-03-18 21:07 | PC.NURSE ---
Shift note: Held patients metformin per request d/t CBG of 89 and patient's low appetite. At bedtime check was 119.
[2021-03-19] VITALS: BP 160/94; PULSE 70; RESP 16; TEMP 36.3; O2SAT 98
[2021-03-19 04:00] VITALS: BP 168/89; PULSE 69; RESP 19; TEMP 36.1; O2SAT 98
[2021-03-19 06:05] LABS: Hematocrit 36.8 % (41-53); Hemoglobin 12.3 g/dL (13.5-17.5); Mean Corpuscular HGB Conc 33.4 % (30-36); Mean Corpuscular Hemoglobin 30.7 PG (26-34); Mean Corpuscular Volume 91.8 fL (80-100); Platelet Count 266 X10^3/uL (150-400); Red Blood Cell Count 4.01 X10^6/uL (4.5-5.9); White Blood Cell Count 6.1 X10^3/uL (4.5-11.0)
[2021-03-19] MEDS: LEVOTHYROXINE 75 MCG TABLET PO (06:37)
[2021-03-19 07:01] LABS: BUN Creatinine Ratio 13.3 (6-22); Blood Urea Nitrogen 14 mg/dL (9-20); Calcium 9.5 mg/dL (8.4-10.2); Carbon Dioxide 25 mmol/L (22-32); Chloride 100 mmol/L (98-107); Estimated Glomerular Filt Rate > 60.0 mL/min (>60); Glucose 162 mg/dL (80-110); HEMOLYSIS 19 (0-50); Potassium 3.9 mmol/L (3.4-5.1); Sodium 130 mmol/L (137-145)
[2021-03-19 08:00] VITALS: BP 170/100; PULSE 70; RESP 14; TEMP 36; O2SAT 96
[2021-03-19] MEDS: ONDANSETRON 4 MG ODT PO (08:36)
[2021-03-19] MEDS: ASPIRIN EC 81 MG TABLET PO (08:39)
[2021-03-19] MEDS: DULOXETINE 30 MG CAPSULE PO (08:39)
[2021-03-19] MEDS: ATORVASTATIN 20 MG TABLET PO (08:39)
[2021-03-19] MEDS: METFORMIN HCL 500 MG TABLET PO (08:40)
[2021-03-19] MEDS: MAGNESIUM OXIDE 400 MG TABLET PO (08:40)
[2021-03-19] MEDS: PANTOPRAZOLE DR 40 MG TABLET PO (08:43)
[2021-03-19] MEDS: AMIODARONE 200 MG TABLET 100 MG PO (08:44)
[2021-03-19] MEDS: SODIUM CHLORIDE 0.9% FLUSH 10 ML IV (08:51)
[2021-03-19 08:54] VITALS: BP 170/100; PULSE 70
[2021-03-19] MEDS: METOPROLOL ER 25 MG TABLET 12.5 MG PO (08:54)
--- NOTE | 2021-03-19 09:14 | CM.DPC ---
Addendum entered by Gissell Lockwood LPN 03/19/21 11:42: IMM #2 presented. Addendum entered by Gissell Lockwood LPN 03/19/21 11:22: Dr. Mccartney is now here and has completed the snf order process. All is faxed to [facility] including PASRR. w/c van poultry picker at 1400. remains at bedside. Addendum entered by Gissell Lockwood LPN 03/19/21 10:20: Rapid Covid test - and is faxed now to [facility]. [facility] has called to confirm acceptance of pt. She has spoken with Kamlesh and [facility] Have alerted Cm team to same. VADIM Devine is trying to contact Dr. Mccartney. Need: full snf orders including signed medication list and appropriate scripts. Green POLST form is given back to pt's Siri and a copy is faxed to [facility] P: [facility]: transport via w/c van between [id number]/ NO LATER pending snf order specifics. Original Note: DCP: continued: Dr. Mccartney was here briefly this morning and did speak with pt and his . POLST DNAR form is completed and copies plus scan are in process with [employer] assist. Dr. Mccartney did tell VADIM Devine and pt that he would d/c today to [facility] but thus far no documentation of same and is unclear if he has returned to clinic. Have alerted RN coordinator to same and requested assist form ALTAF Michel to watch for these orders. Have left a vm on the [facility] admission cell with update on d/c for today. VADIM Devine agrees to get the rapid COVID test in and will try to contact the physician re the snf orders.
[2021-03-19 10:02] LABS: COVID19 -Nasal RAPID Negative (Negative)
--- NOTE | 2021-03-19 10:59 | P.DS_ITS ---
History of Present Illness History of Present Illness Date Patient Seen: 03/19/21 Time Patient Seen: 08:30 Chief complaint: Weakness & confusion Narrative: Pleasant fellow sitting in bed with at bedside. Peeing less with IVF decreased Ready to go to [facility]. He has clear goal of eventually being able to go home. Discharge Providers Provider Date of admission: 03/16/21 13:00 Discharge Date: 03/19/21 Primary care physician: Diane Howard MD Consults: 03/14/21 19:08 Consult to Discharge Planning Routine Comment: Consult to Occupational Therapy Evaluate & Treat Comment: Physician Instructions: Evaluate and treat Consult to Physical Therapy Evaluate & Treat Comment: Physician Instructions: Evaluate and Treat Consult to Speech Therapy Evaluate & Treat Comment: Physician Instructions: Evaluate and treat 03/15/21 17:53 Consult to Palliative Care Routine Comment: Consulting Provider: Tierney Reyna Discharge provider: Tyrone Mccartney MD Summary Hospital Course Discharge Diagnosis: L sided weakness c/w TIA/CVA Hospital Course: Mr. Kasper did well and his L sided weakness resolved spontaneously without intervention. Discussion with family identified goal of rehabilitation prior to going home vs placement as he is 3 months s/p repeat CVA with tPA administration and not back to prior baseline. He did have some electrolytic derangements and renal impairment which resolved with IVF. By DoD mg moreno was working with PT and ready to rehab further at SNF. Status at Discharge Cognitive/behavioral status at discharge: at baseline, confused Functional status at discharge: uses cane/walker (with assistance) Overall status at discharge: patient is progressing back to baseline Time Spent with Patient Time spent: Less than 30 minutes Exam Vital Signs (past 8 hours): - 03/19/21 04:00 03/19/21 08:00 03/19/21 08:54 Temperature 96.9 F L 96.8 F L Pulse Rate 69 70 70 Respiratory Rate 19 14 Blood Pressure 168/89 H 170/100 H 170/100 H Pulse Oximetry 98 96 Oxygen Delivery Method Room Air Oxygen Flow Rate 0 Narrative Exam Narrative: pleasant elder with at bedside Const General: cooperative, healthy appearing and comfortable Nutritional Appearance: average body habitus Orientation: oriented to person, oriented to place and not oriented to time HENMT Head: normal to inspection Ears: hearing grossly normal bilaterally and external ears normal Face and sinus: normal facial exam Eyes General: appearance normal, both eyes and all related structures Resp Effort & Inspection: normal respiratory effort and able to speak in complete sentences Auscultation: clear to auscultation bilaterally Cardio Rate: regular rate Rhythm: abnormal rhythm (irregularly irregular) GI Auscultation: normal bowel sounds Neuro Cranial Nerves: CN's II-XI intact bilaterally Speech: speech normal DTR's: Rt Patellar: 2+ and Lt Patellar: 2+ Extrem Other: moving all extremities equally Psych Appearance: grossly normal Objective Labs Result Diagrams: 03/19/21 05:30 03/19/21 05:30 Labs: Laboratory Results - last 24 hr 03/19/21 03/19/21 03/19/21 05:30 05:30 09:30 WBC 6.1 RBC 4.01 L Hgb 12.3 L Hct 36.8 L MCV 91.8 MCH 30.7 MCHC 33.4 RDW 16.0 H Plt Count 266 Sodium 130 L Potassium 3.9 Chloride 100 Carbon Dioxide 25 BUN 14 Creatinine 1.05 Estimated GFR > 60.0 BUN/Creatinine Ratio 13.3 Glucose 162 H Calcium 9.5 SARS-CoV-2 (PCR) Negative [facility] Medical History Anxiety CAD (coronary artery disease) DDD (degenerative disc disease), cervical Depression Diabetes Dyslipidemia Dysuria Elevated serum homocysteine level History of angina History of CVA (cerebrovascular accident) History of dizziness History of esophageal reflux History of fatigue History of hematuria Impotence Lumbosacral radiculopathy at L5 Memory deficit Neuropathy of both feet Osteoarthritis Pacemaker (~2013) Paroxysmal A-fib 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 RBBB Renal insufficiency Sick sinus syndrome Sleep apnea (~2012) Spinal stenosis in cervical region Spinal stenosis of lumbar region TIA (transient ischemic attack) Urinary retention Surgical History H/O laminectomy H/O shoulder surgery H/O thumb surgery History of appendectomy History of bladder surgery History of cardiac cath (~2012) History of cholecystectomy (~2012) History of cystoscopy History of lumbar fusion History of tonsillectomy History of vasectomy S/P drug eluting coronary stent placement Status post right foot surgery Social History marital status: details: aisha Horner, lives in [place] household members: spouse lives independently: Yes caregiver/support person: No housing: house Smoking Status: Never smoker alcohol intake: current substance use type: does not use Discharge Assessment & Plan Assessment and Plan Assessment: #Altered consciousness, suspect multifactorial. Metabolic encephalopathy w/ hx of repeat CVA/TIAs with tPA administration last in December. Unclear that he ever rehabbed back to baseline. Unable to MRI due to pacemaker. PCP thinks he has having gradual decline since this time with some memory issues as well. Continue his current medications for risk reduction. Options were discussed that would be more aggressive and that are complicated because of his age and multiple comorbidities and at this point neither he nor his who is the durable power of research attorney want any further aggressive intervention. DNR paperwork POLST form submitted and cosigned. Improvement noted during inpatient stay. Plan is that he will go to skilled care facility for approximately a week to see if we can strengthen him and then he will go home. If there is no improvement he will go home. Palliative care consult yesterday. Continue with physical therapy and occupational therapy. Electrolytic derangements normalized. No signs of infection. #History of CVA/TIA Plan: Possible recent new event, CTA head was clear, unable to do MRI due to pacemaker. At this point I think that his symptoms are more likely related to the CVA that he had in December and the subsequent tPA. Seems to have been having gradual decline since this time with some memory issues as well. Continue his current medications for risk reduction. We discussed options that would be more aggressive and that are complicated because of his age and multiple comorbidities and at this point neither he nor his who is the durable power of research attorney want any further aggressive intervention. #Hyperlipidemia, chronic Plan: home atorvastatin 20 mg p.o. q.h.s.. he has documented sensitivity to higher doses #Atrial fibrillation, paroxysmal Plan: Continue amiodarone 100 mg p.o. b.i.d., metoprolol 25 mg PO qam and 12.5 mg PO qhs and aspirin 81 mg p.o. q.day. Due to patient's left atrial occlusion, does not need to be on anticoagulation. #Diabetes mellitus type 2 Plan: Diabetic diet, continue home metformin and glipizide. Will continue with monitoring blood sugars. #Hypothyroidism Plan: Continue home levothyroxine 75 mcg p.o. q.d. #Benign prostatic hypertrophy with urinary retention, chronic Plan: Continue finasteride 5 mg p.o. q.h.s.. No acute issues #Coronary artery disease, chronic Plan: Continue brilinta and statin as noted above. Nitro as needed. No acute issues at this time. #Acute renal insufficiency Improved with IVF, stable ok to dc IVF Plan: Continues to be stable. Will reassess in a.m. #History of arrhythmia with sick sinus syndrome and high-grade AV block, pacemaker since 2013 Plan: Continue with current amiodarone. # Hypomagnesemia. Plan: Continue magnesium 400 mg p.o. b.i.d. #Depression/anxiety Plan: Continue home duloxetine 30 mg p.o. qd. #Anemia, normocytic / normochromic, chronic Plan: Likely anemia of chronic disease, will treat underlying diseases. Continues to trend downward slightly suspect dilutional he has been getting a lot of IVF. #Hyponatremia, worsening possibly contributing to decreased cognition and confusion as well as fatigue Plan: improving on NS 125 mL/hr overnight, kidneys seem to be holding up, continue at 100mL/hr #Orthostatic hypotension possibly relative dehydration. Improved with IV fluid rehydration. Also decreased metoprolol by half tablet. We may need to tolerate a higher systolic blood pressure to prevent him from getting orthostatic hypotension. Reviewed his echo which did show improved ejection fraction at the low normal. His cardiac enzymes were negative. compression stockings. Transferring to skilled care facility for further PT and strengthening with then hopes of sending him home. Disposition: Plan for transfer to skilled care facility on Monday for strengthening for 1 week. DVT prophylaxis: SCDs Code status: DNR/DNI COVID: Negative Disposition: to SNF for strengthening. Discharge Plan Discharge Plan Patient Disposition: SNF Transfer to: [facility] Provider Discharge Comment: stable for transfer Discharge orders & Medications Prescriptions: Continued nitroglycerin 0.4 mg tablet, sublingual 0.4 mg SL Q5-15M PRN (Reason: chest pain) Qty: 30 RF: 2 glipizide 2.5 mg Tablet Extended Release 24hr 2.5 mg PO DAILY RF: 0 levothyroxine 75 mcg tablet 75 mcg PO QAM RF: 0 metformin 1,000 mg tablet 500 mg PO BID RF: 0 finasteride 5 mg Tablet 5 mg PO BEDTIME RF: 0 atorvastatin 20 mg tablet 20 mg PO QAM RF: 0 duloxetine 30 mg capsule,delayed release(DR/EC) 30 mg PO DAILY RF: 0 ondansetron HCl 4 mg tablet 4 mg PO TID PRN (Reason: nausea) RF: 0 esomeprazole magnesium 40 mg capsule,delayed release(DR/EC) 40 mg PO BID RF: 0 hydrocodone-acetaminophen 5-325 mg Tablet 1 tab PO Q6H PRN (Reason: Pain, Moderate) RF: 0 magnesium oxide 400 mg (241.3 mg magnesium) Tablet 400 mg PO BID Qty: 180 RF: 3 metoprolol succinate 25 mg tablet extended release 24 hr 25 mg PO DAILY RF: 0 Brilinta 90 mg tablet 90 mg PO BID RF: 0 metoprolol succinate 25 mg tablet extended release 24 hr 12.5 mg PO BEDTIME RF: 0 amiodarone 200 mg tablet 100 mg PO QAM RF: 0 aspirin [Adult Low Dose Aspirin] 81 mg tablet,delayed release (DR/EC) 81 mg PO QAM RF: 0 Follow up/Referrals: Diane Howard MD [Primary Care Provider] - Diet/Activity/Treatments Diet: Carb-consistent/Diabetic Liquid consistency: Normal/Thin Food texture: Regular Activity: as tolerated with PT or assistance Special Rehabilitation Services Reason for rehabilitation: Therapy following stroke and Recovery r/t decondition Rehab type: Physical therapy and Occupational therapy Discharge Data Primary Care Provider: Diane Howard
--- NOTE | 2021-03-19 11:16 | PT.IPTN ---
Current Diagnoses Altered mental status, unspecified (03/16/21) Physical Therapy Treatment Note M2 PT-IP Current Condition Start: 03/15/21 09:10 Freq: NEEDED Status: Active Protocol: Document 03/15/21 14:08 AW (Rec: 03/15/21 15:12 AW [id number]) Physical Therapy Current Condition Current Condition Evaluation Date 03/15/21 Treatment Diagnosis weakness, confusion; impaired mobility and gait Onset Date 03/13/21 Precautions Other Precautions falls M3 PT-IP Subjective Start: 03/15/21 09:10 Freq: NEEDED Status: Active Protocol: Document 03/19/21 11:16 AB (Rec: 03/19/21 12:36 AB [id number]) Subjective Physical Therapy Visit Type Type Treatment Note Visit Start Time 11:16 Visit Stop Time 11:45 Total Visit Minutes 29 Number of DENTAL CLAIMS PROCESSOR Visits 0 Physical Therapy Visit Comments Patient Comments pt is agreeable to do PT M4 PT-IP Mobility and Gait Start: 03/15/21 09:10 Freq: NEEDED Status: Active Protocol: Document 03/19/21 11:16 AB (Rec: 03/19/21 12:36 AB [id number]) PT-Bed Mobility Assessment Supine to Sit Supine to Sit Contact Guard Assistance, Minimal Assistance,Head of Bed Elevated,Bedrails PT-Transfer Assessment Sit to and From Stand Sit to and from Stand Minimal Assistance,1 Person Assistance,Use of Upper Extremities Equipment Transfer Assistive Device Gait Belt,Front Wheeled Walker Orthotic/Prosthetic Devices or Brace: No Transfers Transfer Destination Chair Transfer Technique Stand Step Pivot Transfer Ability Level of Assist Contact Guard Assistance, Minimal Assistance,1 Person Assistance,Use of Upper Extremities Comments Mobility Comments Pt supine and bed and agreed to do PT and get out of bed. BP monitored. BP supine: 133/ 60. pt completed supine to sit CGA to min A with use of bed rail and HOB elebated. pt was able to sit on EOB SBA to CGA . BP checked: 102/62. pt without any c/o dizziness. checked BP again after ~ 2min : 127/84. Spouse brought pt's compression stockings and assisted pt with putting stockings on. Per doctor's POC dated: 03/18/21: pt needs to wear his compressing stockings. Spouse stated that pt uses one at home and brought them in. pt completed sit to stand CGA to min A. BP checked but pt stated he has to sit back before obtaining BP reading. reading after standing in sitting position: 84/52. pt stated that he is a little oozy. pt rested in sitting and BP checked again after ~ 2min : 111/75. pt rested for a few more minutes and agreed to transfer to the chair. completed sit to stand min A and step transfer to chair using FWW CGA to min A and cues. BP checked after transfers: 90/57. pt rested and checked BP after 1 min: 136/91. positioned pt on chair. call light and table placed within reach. chair alarm on. left pt with spouse in room. M5 PT-IP Objective Assessments Start: 03/15/21 09:10 Freq: NEEDED Status: Active Protocol: Document 03/15/21 14:08 AW (Rec: 03/15/21 15:23 AW [id number]) Orientation Orientation/Cognition Level of Alertness Confusional State Orientation Name,Place,Situation Safety Awareness Decreased Safety Awareness Memory Description Short Term Impaired Comments Pt was soft spoken and his frequently spoke for him although he was able to communicate his needs. Gross Range of Motion Lower Extremity ROM Assessment Bilaterally Impaired Impairments Lacking knee extension, slight flexion contractures bilaterally Strength Lower Extremity Strength Assessment Bilaterally Impaired Hip 3+/5 Knee 3+/5 Sensation Assessment Sensation Gross Sensation WNL Muscle Tone Muscle Tone WNL Yes M6 PT-IP Treatment Start: 03/15/21 09:10 Freq: NEEDED Status: Active Protocol: Document 03/18/21 16:55 AB (Rec: 03/18/21 18:08 AB [id number]) Physical Therapy Treatment Education Education Provided Safety M7 PT-IP Assessment and Plan Start: 03/15/21 09:10 Freq: NEEDED Status: Active Protocol: Document 03/19/21 11:16 AB (Rec: 03/19/21 12:36 AB [id number]) PT Summary Assessment and Plan Potential Rehabilitation Potential Fair Summary Impairments Pain,ROM,Strength,Balance, Coordination,Sensation,Tone, Cognition,Bed Mobility, Transfers,Gait,Activity Tolerance Progress Towards Goals Slow Progress due to Medical Issues,Slow Progress due to Activity Tolerance Assessment Summary pt continues to have a significant decrease in BP with upright activity affecting activity tolerance and limiting mobility. pt plans to go to SNF rehab later today. Goals Bed Mobility Goal Standby Assistance Transfer Goal Standby Assistance,Front Wheeled Walker Gait Goal Standby Assistance,Front Wheel Walker Gait Distance 20 Days to Meet Goals 10 Frequency of Treatment Frequency Of Treatment Once a Day Treatment Plan Physical Therapy Treatment Plan Bed Mobility Training,Transfer Training,Gait Training, Therapeutic Exercise,Balance Retraining,Discharge Planning, Neuromuscular Re-ed Precautions Other Precautions falls, monitor BP Recommendations To Nursing Amount of Assist Needed 1 Person Assist Discharge Recommendations PT Discharge Recommendations SNF Rehab Transportation Needs at Discharge Private Vehicle,Wheelchair/ Cabulance
[2021-03-19] MEDS: polyethylene glycoL 3350 17 GM POWD.PACK PO (11:42)
[2021-03-19 12:00] VITALS: BP 130/60; PULSE 72; RESP 14; TEMP 36.2; O2SAT 98
--- NOTE | 2021-03-19 14:05 | PC.NURSE ---
Pt lethargic this a.m. able to awaken for activity and then falling back to sleep A&Ox1-2, forgetfull. Supportive at bedside. Pt with fair po intake about 15% of meals. Pt medicated with PRN zofran this a.m for complaint of nausea with good effect, pt reported nausea was improved. Pt with elevated SBP this a.m. MD aware, administered scheduled a.m. medications. Pt denied pain. LBM documented was 03/15 per orders given Miralax and MOM. Pt sitting on toilet after lunch + large ammount of flatus, no BM. Called report to Tabitha at [facility]. Facility designee arrived at 1350 to transport the patient via w/ch. Discharge packet given to alannah. Pt escorted with and all of his belongings including medication bottle Christopher from pharmacy.
== END 2021-03-19 14:05 | DRG 71 ==
LOC: ED 18:02 → AC 18:05
PROVIDERS: Family Medicine; Admitting Provider Student in an Organized Health Care Education/Training Program; Emergency Provider Emergency Medicine; PCP Family Medicine; Referring Provider Emergency Medicine; Visit Provider Family Medicine
DX: G93.41 Metabolic encephalopathy (principal); E87.1 Hypo-osmolality and hyponatremia; E78.5 Hyperlipidemia, unspecified; I48.0 Paroxysmal atrial fibrillation; E11.9 Type 2 diabetes mellitus without complications; I69.311 Memory deficit following cerebral infarction; E03.9 Hypothyroidism, unspecified; F32.9 Major depressive disorder, single episode, unspecified; N40.1 Benign prostatic hyperplasia with lower urinary tract symptoms; R33.8 Other retention of urine; I25.10 Atherosclerotic heart disease of native coronary artery without angina pectoris; E83.42 Hypomagnesemia; N28.9 Disorder of kidney and ureter, unspecified; F41.9 Anxiety disorder, unspecified; I49.5 Sick sinus syndrome; D64.89 Other specified anemias; Z20.822 Contact with and (suspected) exposure to COVID-19; Z66 Do not resuscitate; Z95.0 Presence of cardiac pacemaker; Z79.84 Long term (current) use of oral hypoglycemic drugs
CPT/HCPCS: 36415; 70496; 70498; 80048; 80053; 80305; 81001; 81003; 82550; 82962; 83735; 83880; 84484; 85025; 85027; 85610; 85730; 87635; 92507; 92523; 93005; 93307; 96360; 96361; 97162; 97166; 97530; 99232; 99285; 99497; C9803; G0378; J7050; Q9967

== ENCOUNTER → 2021-03-31 11:41 | Outpatient (ROUT) | payer SELFPAY ==
[2021-03-14 18:40] VITALS: BMI 26.1
[2021-03-31 11:43] LABS: Bacteria Urine None Seen; RBC Urine None Seen (0-5/HPF); WBC Urine None Seen (0-5/HPF)
[2021-03-31 11:56] LABS: Bilirubin Urine UA NEGATIVE (NEGATIVE); Color Urine UA YELLOW; Glucose Urine UA NEGATIVE (Negative); Ketones Urine UA 1+ (NEGATIVE); Leukocyte Esterase Urine UA TRACE (NEGATIVE); Nitrite Urine UA NEGATIVE (Negative); Occult Blood Urine UA NEGATIVE (Negative); Protein Urine UA TRACE (Negative); Specific Gravity Urine UA >=1.030 (1.000-1.035); Urobilinogen Urine UA 0.2 E.U./dL (0.2)
[2021-03-31 12:22] LABS: Appearance Urine UA Clear
[2021-03-31 12:23] LABS: Amorphous Sediment Urine 1+; Calcium Oxalate Crystals Urine Few; Culture Indicated Urine Cult Not Indicated; Squamous Epithelial Cell Urine None Seen (0-5/HPF)
[2021-04-01 13:28] LABS: Osmolality Urine 762 mOsmol/kg (.)
== END ==
PROVIDERS: PCP Family Medicine; Visit Provider Nurse Practitioner
DX: G93.41 Metabolic encephalopathy (principal)
CPT/HCPCS: 81001; 83935

== ENCOUNTER → 2021-05-10 08:46 | Outpatient (CLI) | payer MEDICARE, OTHER, SELFPAY ==
[2021-03-14 18:40] VITALS: BMI 26.1
[2021-05-10 09:57] LABS: Add Manual Diff / Slide Review NO; Basophils Absolute Auto 0 /uL (0-100); Basophils Percent Auto 0.7 % (0-2); Eosinophils Absolute Auto 100 /uL (0-450); Eosinophils Percent Auto 1.6 % (2-4); Hematocrit 35.8 % (41-53); Hemoglobin 11.9 g/dL (13.5-17.5); Lymphocytes Absolute Auto 1300 /uL (1100-4500); Lymphocytes Percent Auto 22.4 % (25-40); Mean Corpuscular HGB Conc 33.2 % (30-36); Mean Corpuscular Hemoglobin 30.6 PG (26-34); Mean Corpuscular Volume 92.3 fL (80-100); Monocytes Absolute Auto 500 /uL (0-900); Monocytes Percent Auto 8.6 % (3-14); Neutrophils Absolute Auto 3800 /uL (1500-7000); Neutrophils Percent Auto 66.7 % (50-75); Platelet Count 284 X10^3/uL (150-400); Red Blood Cell Count 3.88 X10^6/uL (4.5-5.9); White Blood Cell Count 5.7 X10^3/uL (4.5-11.0)
[2021-05-10 10:04] LABS: Hemoglobin A1C% w Est Avg Glu 6.3 % (4.0-6.0)
[2021-05-10 10:19] LABS: Alanine Aminotransferase 17 IU/L (<50); Albumin 3.7 g/dL (3.5-5.0); Albumin Globulin Ratio 1.3 (1.0-2.8); Alkaline Phosphatase 90 U/L (38-126); Aspartate Aminotransferase 25 IU/L (17-59); BUN Creatinine Ratio 15.8 (6-22); Bilirubin Total 0.7 mg/dL (0.2-1.3); Blood Urea Nitrogen 19 mg/dL (9-20); Calcium 9.3 mg/dL (8.4-10.2); Carbon Dioxide 26 mmol/L (22-32); Chloride 101 mmol/L (98-107); Cholesterol 150 mg/dL (140-199); Estimated Glomerular Filt Rate 57.4 mL/min (>60); Globulin 2.8 g/dL (1.7-4.1); Glucose 160 mg/dL (80-110); HDL Cholesterol 45 mg/dL (40-60); HEMOLYSIS < 15 (0-50); LDL Cholesterol Calculated 67 mg/dL (<100); Potassium 4.6 mmol/L (3.4-5.1); Sodium 134 mmol/L (137-145); Total Protein 6.5 g/dL (6.3-8.2); Triglycerides 190 mg/dL (35-150)
[2021-05-10 12:11] LABS: Thyroid Stimulating Hormone 2.41 uIU/mL (0.47-4.68)
== END ==
PROVIDERS: PCP Family Medicine; Referring Provider Family Medicine; Visit Provider Family Medicine
DX: E03.9 Hypothyroidism, unspecified (principal); E11.9 Type 2 diabetes mellitus without complications; E78.5 Hyperlipidemia, unspecified
CPT/HCPCS: 36415; 80053; 80061; 83036; 84443; 85025

== ENCOUNTER 2021-10-23 20:35 | Inpatient (IN) | payer MEDICARE, OTHER, SELFPAY ==
[2021-03-14 18:40] VITALS: BMI 26.1
[2021-10-23] VITALS (9 sets, daily range): BP systolic 123–187; BP diastolic 74–102; PULSE 81–90; RESP 16–19; TEMP 36.5–36.6; O2SAT 94–99; BMI 24.3
--- NOTE | 2021-10-23 20:40 | DI.RAD.S_ITS ---
PROCEDURE: XR HIP W PEL IF DONE RT 2V INDICATIONS: fall pain shortened with right hip pain TECHNIQUE: AP pelvis with lateral view(s) of the right hip(s). COMPARISON: [facility], , XR HIP W PEL IF DONE RT 2V, 01/25/2020, 16:57. FINDINGS: Bones: No dislocations but there is a inter trochanteric right hip fracture, without pelvic ring fracture found. Stable appearing spine fusion devices are again noted at L4-5 and L5-S1.. Pelvic ring appears intact. No suspicious bony lesions. Soft tissues: The visualized bowel gas pattern is normal. No suspicious soft tissue calcifications. IMPRESSION: Acute inter trochanteric right hip fracture, mild to moderate bilaterally symmetric hip joint osteoarthritis. Stable appearing spine fusion procedure with devices showing no sign of disruption spanning from L4 through S1. Dictated by: Arnaldo Thompson M.D. on 10/23/2021 at 21:17 Approved by: Arnaldo Thompson M.D. on 10/23/2021 at 21:18
--- NOTE | 2021-10-23 20:40 | DI.RAD.S_ITS ---
PROCEDURE: XR CHEST 1V INDICATIONS: fall TECHNIQUE: One view of the chest was acquired. COMPARISON: [facility], CR, XR CHEST 1V, 02/06/2021, 14:17. [facility], CR, XR CHEST 1V, 01/28/2021, 9:34. FINDINGS: Surgical changes and devices: Dual chamber cardiac pacemaking device and leads appear normal and stable over time. Lungs and pleura: Lungs are clear considering reduced inspiratory volume. No pleural effusions or pneumothorax. Mediastinum: Mediastinal contours appear normal. Heart size is normal. Bones and chest wall: No suspicious bony lesions. Overlying soft tissues appear unremarkable. IMPRESSION: Stable pacemaking device with dual chamber leads. Reduced inspiratory volume. No trauma found. Dictated by: Arnaldo Thompson M.D. on 10/23/2021 at 21:16 Approved by: Arnaldo Thompson M.D. on 10/23/2021 at 21:16
--- NOTE | 2021-10-23 20:40 | DI.CT.S_ITS ---
PROCEDURE: CT HEAD/BRAIN WO CON INDICATIONS: fall TECHNIQUE: Noncontrast 4.5 mm thick angled axial sections acquired from the foramen magnum to the vertex, with coronal and sagittal reformats. For radiation dose reduction, the following was used: automated exposure control, adjustment of mA and/or kV according to patient size. COMPARISON: [facility], CT, CT HEAD/BRAIN WO CON, 07/16/2020, 16:30. [facility], CT, CT HEAD/BRAIN WO CON, 07/06/2020, 15:57. FINDINGS: Image quality: Excellent. CSF spaces: Basal cisterns are patent. No extra-axial fluid collections. The ventricles are symmetric in size and shape. Brain: No intracranial bleeds or masses. There is cerebral volume loss for age, with resultant ventricular and sulcal prominence. There are periventricular and deep white matter chronic small vessel ischemic changes. There is intracranial internal carotid artery atherosclerosis. Skull and face: Calvarium and visualized facial bones appear intact, without suspicious lesions. Sinuses: Visualized sinuses and mastoids are clear. IMPRESSION: No acute disease, no trauma found. Moderate microvascular atherosclerotic change in the deep white matter of each hemisphere is again noted, stable from June of 2020. Dictated by: Arnaldo Thompson M.D. on 10/23/2021 at 21:33 Approved by: Arnaldo Thompson M.D. on 10/23/2021 at 21:34
--- NOTE | 2021-10-23 20:40 | DI.CT.S_ITS ---
PROCEDURE: CT CERVICAL SPINE WO CON INDICATIONS: fall TECHNIQUE: Noncontrast 3 mm thick sections acquired from the skull base to the T4 level. Sagittal and coronal reformats were then constructed. For radiation dose reduction, the following was used: automated exposure control, adjustment of mA and/or kV according to patient size. COMPARISON: [facility], CT, CT CERVICAL SPINE WO CON, 04/13/2020, 15:55. [facility], CT, CT CERVICAL SPINE WO CON, 01/25/2020, 16:52. FINDINGS: Image quality: Excellent. Bones: No fractures or dislocations. Visualized superior ribs are intact. Prior anterior fusion plate placement, previously the case, from C5 through C7 showing no evidence of disruption. Soft tissues: Prevertebral soft tissues are normal in thickness. No paravertebral hematomas. No apical pneumothoraces. IMPRESSION: Prior C5 through C7 fusion, no traumatic injury found. Dictated by: Arnaldo Thompson M.D. on 10/23/2021 at 21:34 Approved by: Arnaldo Thompson M.D. on 10/23/2021 at 21:36
--- NOTE | 2021-10-23 20:40 | DI.RAD.S_ITS ---
PROCEDURE: XR ELBOW RT MIN 3V INDICATIONS: fall pain TECHNIQUE: 3 views of the elbow were acquired. COMPARISON: None. FINDINGS: Bones: No fractures or dislocations. No suspicious bony lesions. Soft tissues: No elbow joint effusion. No suspicious soft tissue calcifications. IMPRESSION: Calcific tendonitis is noted at the triceps tendon insertion at the dorsal olecranon. No acute trauma found. Dictated by: Arnaldo Thompson M.D. on 10/23/2021 at 21:19 Approved by: Arnaldo Thompson M.D. on 10/23/2021 at 21:19
--- NOTE | 2021-10-23 20:44 | ED.FALL ---
HPI - Fall General Chief Complaint: Fall Stated Complaint: GLF Time Seen by Provider: 10/23/21 20:40 History of Present Illness HPI Narrative: Patient is a 86-year-old male history of CVA, coronary artery disease, memory deficit, hyperlipidemia, diabetes presenting today after ground level fall. He says he was going to the bathroom to brush his teeth he went to grab the handrail and slipped. He is complaining of right hip pain and right elbow pain. Does not appear that he hit his head. He denies any chest pain dizziness or lightheadedness. He takes Brilinta and aspirin. Related Data Home Medications Medication Instructions Recorded Confirmed levothyroxine 75 mcg tablet 75 mcg PO QAM 08/27/18 10/23/21 aspirin 81 mg tablet,delayed 81 mg PO QAM 12/24/18 10/23/21 release (Adult Low Dose Aspirin) atorvastatin 20 mg tablet 20 mg PO QAM 09/23/20 10/23/21 duloxetine 30 mg capsule,delayed 30 mg PO BEDTIME 09/23/20 10/23/21 release esomeprazole magnesium 40 mg 40 mg PO BID 09/23/20 10/23/21 capsule,delayed release ondansetron HCl 4 mg tablet 4 mg PO TID PRN 09/23/20 10/23/21 glipizide 2.5 mg tablet, extended 2.5 mg PO DAILY 01/14/21 10/23/21 release 24 hr metoprolol succinate 25 mg 25 mg PO BEDTIME 03/14/21 10/23/21 tablet,extended release 24 hr metoprolol succinate 25 mg 25 mg PO DAILY 03/14/21 10/23/21 tablet,extended release 24 hr amiodarone 200 mg tablet 100 mg PO DAILY 10/23/21 10/23/21 hydrocodone 5 mg-acetaminophen 325 1 tab PO Q6H PRN 10/23/21 10/23/21 mg tablet metformin 1,000 mg tablet 500 mg PO BID 10/23/21 10/23/21 ticagrelor 90 mg tablet (Brilinta) 90 mg PO BID 10/23/21 10/23/21 Previous Rx's Medication Instructions Recorded nitroglycerin 0.4 mg sublingual 0.4 mg SL Q5-15M PRN #30 tab 06/29/18 tablet magnesium oxide 400 mg (241.3 mg 400 mg PO BID #180 tab 10/08/20 magnesium) tablet Allergies Allergy/AdvReac Type Severity Reaction Status Date / Time [id number] Reductase Allergy Intermediate MUSCLE PAIN Verified 10/23/21 20:47 Inhibitor [[id number] REDUCTASE INHIBITOR] piroxicam [PIROXICAM] Allergy Mild NAUSEA, Verified 10/23/21 20:47 VOMITING dabigatran etexilate AdvReac Hematuria Verified 10/23/21 20:47 Review of Systems Review of Systems Narrative: GENERAL: Denies chills, fatigue, malaise, fever, sweats, travel HEENT: Denies sinus pain, ear pain, sore throat, difficulty swallowing, neck pain RESPIRATORY: Denies dyspnea, cough, wheezing, hemoptysis, sputum. CARDIOVASCULAR: Denies chest pain, palpitations, orthopnea, edema GASTROINTESTINAL: Denies nausea, vomiting, abdominal pain, diarrhea, constipation, melena. : Denies dysuria, frequency, incontinence, hematuria, urinary retention, flank pain. MUSCULOSKELETAL: See HPI SKIN: No rash, no erythema, no pruritus NEUROLOGIC: Denies weakness, dizziness, headache, numbness, change in speech, confusion PSYCHIATRIC: No concerning psychosocial issues. 12 point review of systems is negative except for those stated above and HPI Patient History Medical History (Updated 10/23/21 @ 22:36 by Arlette Jenkins DO) Anxiety Arthritis CAD (coronary artery disease) DDD (degenerative disc disease), cervical Depression Diabetes Dyslipidemia Dysuria Elevated serum homocysteine level Heart attack History of angina History of CVA (cerebrovascular accident) History of dizziness History of esophageal reflux History of fatigue History of hematuria Impotence Lumbosacral radiculopathy at L5 Memory deficit Neuropathy of both feet Nocturia Nocturia Osteoarthritis Pacemaker (~2013) Paroxysmal A-fib 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 RBBB Renal insufficiency Sick sinus syndrome Sleep apnea (~2012) Spinal stenosis in cervical region Spinal stenosis of lumbar region Thyroid disease TIA (transient ischemic attack) Urinary retention Surgical History (Updated 10/04/21 @ 11:51 by Finesse Fisher DO) H/O laminectomy H/O shoulder surgery H/O thumb surgery History of appendectomy History of bladder surgery History of cardiac cath (~2012) History of cholecystectomy (~2012) History of cystoscopy History of fusion of cervical spine History of lumbar fusion History of tonsillectomy History of vasectomy S/P drug eluting coronary stent placement Status post right foot surgery Social History marital status: details: aisha Horner, lives in [place] household members: spouse lives independently: Yes caregiver/support person: No housing: house Smoking Status: Never smoker alcohol intake: current substance use type: does not use Smoking Status: Never smoker alcohol intake frequency: holidays/special occasions only Substance Use Type: does not use Exam Initial Vital Signs Initial Vital Signs: Vital Signs Temperature 97.7 F 10/23/21 20:36 Pulse Rate 89 10/23/21 20:36 Respiratory Rate 18 10/23/21 20:36 Blood Pressure 187/102 H 10/23/21 20:36 Pulse Oximetry 99 10/23/21 20:36 GENERAL: Alert well-appearing 86-year-old male HEENT: Head atraumatic,EOMI, pupils reactive, face symmetric, moist mucous membranes NECK: No vertebral tenderness no step-off CARDIOVASCULAR: Regular rate and rhythm without murmurs, rubs or gallops. RESPIRATORY: Breath sounds equal bilaterally, no wheezes rales or rhonchi. ABDOMEN: Soft, nontender. Normoactive bowel sounds all 4 quadrants. No guarding or rebound. EXTREMITIES: Normal range of motion, no clubbing or edema. Neurovascularly intact Tender right hip slightly shortened right leg distal pedal pulse intact no contusion Right arm no shoulder pain or clavicle step-off elbow does not show any trauma abrasion or skin tear reflects stents supinate and pronate. Distal radial pulse intact. 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 Course Orders Ordered: ED Orders 10/23/21 20:40 CT cervical spine wo con Stat CT head/brain wo con Stat Chest [XR chest 1V] Stat XR elbow RT min 3V Stat XR hip w pel if done RT 2V Stat 10/23/21 21:23 EKG-12 Lead Stat 10/23/21 21:40 Complete Blood Count AUTO DIFF Stat Comprehensive Metabolic Panel Stat Lipase Stat Troponin & CK Cardiac Panel Stat 10/23/21 21:47 COVID19 -Nasal swab/Pre-Proc Stat 10/23/21 22:36 Consult to Orthopedic Surgery Stat Discontinued Medications Morphine Sulfate (Morphine 2 Mg/Ml Inj) 2 mg IV NOW ONE Stop: 10/23/21 20:41 Last Admin: 10/23/21 21:50 Dose: 2 mg Documented by: ALEX Morphine Sulfate (Morphine 2 Mg/Ml Inj) 2 mg IV NOW ONE Stop: 10/23/21 22:40 Last Admin: 10/23/21 22:44 Dose: 2 mg Documented by: RICKI Vital Signs Vital signs: Vital Signs - 8 hr 10/23/21 20:36 10/23/21 20:38 10/23/21 20:44 Temperature 97.7 F Pulse Rate 89 90 86 Respiratory Rate 18 Blood Pressure 187/102 H 178/99 H Pulse Oximetry 99 99 94 10/23/21 21:07 10/23/21 21:08 10/23/21 21:30 Temperature Pulse Rate 85 85 81 Respiratory Rate 19 Blood Pressure 158/92 H 143/79 H Pulse Oximetry 97 99 96 10/23/21 22:00 10/23/21 22:30 Temperature Pulse Rate 85 86 Respiratory Rate 16 Blood Pressure 124/76 123/74 Pulse Oximetry 96 98 MDM - Fall Lab Data Result diagrams: 10/23/21 21:40 10/23/21 21:40 Labs: Lab Results 10/23/21 10/23/21 10/23/21 Range/Units 21:40 21:40 21:47 WBC 5.1 (4.5-11.0) X10^3/uL RBC 3.71 L (4.5-5.9) X10^6/uL Hgb 10.6 L (13.5-17.5) g/dL Hct 31.9 L (41-53) % MCV 86.0 (80-100) fL MCH 28.6 (26-34) PG MCHC 33.3 (30-36) % RDW 16.2 H (11.6-14.8) % Plt Count 233 (150-400) X10^3/uL Neut % (Auto) 54.1 (50-75) % Lymph % (Auto) 28.9 (25-40) % Scurry % (Auto) 12.6 (3-14) % Eos % (Auto) 3.3 (2-4) % Baso % (Auto) 1.1 (0-2) % Neut # (Auto) 2800 (7018-9124) /uL Lymph # (Auto) 1500 (2316-7732) /uL Scurry # (Auto) 600 (0-900) /uL Eos # (Auto) 200 (0-450) /uL Baso # (Auto) 100 (0-100) /uL Sodium 131 L (137-145) mmol/L Potassium 4.7 (3.4-5.1) mmol/L Chloride 101 (98-107) mmol/L Carbon Dioxide 24 (22-32) mmol/L BUN 19 (9-20) mg/dL Creatinine 1.17 (0.66-1.25) mg/dL Estimated GFR 59.1 L (>60) mL/min BUN/Creatinine Ratio 16.2 (6-22) Glucose 116 H (80-110) mg/dL Calcium 9.3 (8.4-10.2) mg/dL Total Bilirubin 0.5 (0.2-1.3) mg/dL AST 39 (17-59) IU/L ALT 31 (<50) IU/L Alkaline Phosphatase 48 (38-126) U/L Total Creatine Kinase 44 L (55-170) U/L CK-MB (CK-2) TNP CK-MB (CK-2) Rel Index TNP Troponin I < 0.012 (0.01-0.034) ng/mL Total Protein 6.4 (6.3-8.2) g/dL Albumin 3.8 (3.5-5.0) g/dL Globulin 2.6 (1.7-4.1) g/dL Albumin/Globulin Ratio 1.5 (1.0-2.8) Lipase 103 (23-300) U/L SARS-CoV-2 (PCR) Negative (Negative) Imaging Data CT scan - head: Radiologist's Impression: PROCEDURE:? CT HEAD/BRAIN WO CON ? INDICATIONS:? fall ? TECHNIQUE:? Noncontrast 4.5 mm thick angled axial sections acquired from the foramen magnum to the vertex, with coronal and sagittal reformats.? For radiation dose reduction, the following was used:? automated exposure control, adjustment of mA and/or kV according to patient size.? ? COMPARISON:? [facility], CT, CT HEAD/BRAIN WO CON, 07/16/2020, 16:30.? [facility], CT, CT HEAD/BRAIN WO CON, 07/06/2020, 15:57. ? FINDINGS:? Image quality:? Excellent.? ? CSF spaces:? Basal cisterns are patent.? No extra-axial fluid collections.? The ventricles are symmetric in size and shape.? ? Brain:? No intracranial bleeds or masses.? There is cerebral volume loss for age, with resultant ventricular and sulcal prominence.? There are periventricular and deep white matter chronic small vessel ischemic changes.? There is intracranial internal carotid artery atherosclerosis.? ? Skull and face:? Calvarium and visualized facial bones appear intact, without suspicious lesions.? ? Sinuses:? Visualized sinuses and mastoids are clear.? ? IMPRESSION:? No acute disease, no trauma found.? Moderate microvascular atherosclerotic change in the deep white matter of each hemisphere is again noted, stable from June of 2020.? ? ? Dictated by: Arnaldo Thompson M.D. on 10/23/2021 at 21:3 CT - cervical spine: Radiologist's Impression: PROCEDURE:? CT CERVICAL SPINE WO CON ? INDICATIONS:? fall ? TECHNIQUE:? Noncontrast 3 mm thick sections acquired from the skull base to the T4 level.? Sagittal and coronal reformats were then constructed.? For radiation dose reduction, the following was used:? automated exposure control, adjustment of mA and/or kV according to patient size.? ? COMPARISON:? [facility], CT, CT CERVICAL SPINE WO CON, 04/13/2020, 15:55.? [facility], CT, CT CERVICAL SPINE WO CON, 01/25/2020, 16:52. ? FINDINGS:? Image quality:? Excellent.? ? Bones:? No fractures or dislocations.? Visualized superior ribs are intact.? Prior anterior fusion plate placement, previously the case, from C5 through C7 showing no evidence of disruption. ? Soft tissues:? Prevertebral soft tissues are normal in thickness.? No paravertebral hematomas.? No apical pneumothoraces.? ? ? IMPRESSION:? Prior C5 through C7 fusion, no traumatic injury found. ? ? ? Dictated by: Arnaldo Thompson M.D. on 10/23/2021 at 21:34 ? ? Approved by: Arnaldo Thompson M.D. on 10/23/2021 at 21:36? Chest x-ray: Radiologist's Impression: PROCEDURE:? XR CHEST 1V ? INDICATIONS:? fall ? TECHNIQUE:? One view of the chest was acquired.? ? COMPARISON:? [facility], NAOMY, XR CHEST 1V, 02/06/2021, 14:17.? [facility], CR, XR CHEST 1V, 01/28/2021, 9:34. ? FINDINGS:? ? Surgical changes and devices:? Dual chamber cardiac pacemaking device and leads appear normal and stable over time.? ? Lungs and pleura:? Lungs are clear considering reduced inspiratory volume.? No pleural effusions or pneumothorax.? ? Mediastinum:? Mediastinal contours appear normal.? Heart size is normal.? ? Bones and chest wall:? No suspicious bony lesions.? Overlying soft tissues appear unremarkable.? ? IMPRESSION:? Stable pacemaking device with dual chamber leads.? Reduced inspiratory volume.? No trauma found. ? ? Dictated by: Arnaldo Thompson M.D. on 10/23/2021 at 21:16 ? ? Extremity x-ray #1: Radiologist's Impression: PROCEDURE:? XR ELBOW RT MIN 3V ? INDICATIONS:? fall pain ? TECHNIQUE:? 3 views of the elbow were acquired.? ? COMPARISON:? None. ? FINDINGS:? ? Bones:? No fractures or dislocations.? No suspicious bony lesions.? ? Soft tissues:? No elbow joint effusion.? No suspicious soft tissue calcifications.? ? ? IMPRESSION:? Calcific tendonitis is noted at the triceps tendon insertion at the dorsal olecranon.? No acute trauma found. ? ? Dictated by: Arnaldo Thompson M.D. on 10/23/2021 at 21:19 ?? Extremity x-ray #2: Radiologist's Impression: PROCEDURE:? XR HIP W PEL IF DONE RT 2V ? INDICATIONS:? fall pain shortened with right hip pain ? TECHNIQUE:? AP pelvis with lateral view(s) of the right hip(s).? ? COMPARISON:? [facility], NAOMY, XR HIP W PEL IF DONE RT 2V, 01/25/2020, 16:57. ? FINDINGS:? ? Bones:? No dislocations but there is a inter trochanteric right hip fracture, without pelvic ring fracture found.? Stable appearing spine fusion devices are again noted at L4-5 and L5-S1..? Pelvic ring appears intact.? No suspicious bony lesions.? ? Soft tissues:? The visualized bowel gas pattern is normal.? No suspicious soft tissue calcifications.? ? ? IMPRESSION:? Acute inter trochanteric right hip fracture, mild to moderate bilaterally symmetric hip joint osteoarthritis.? Stable appearing spine fusion procedure with devices showing no sign of disruption spanning from L4 through S1. ? ? ? Dictated by: Arnaldo Thompson M.D. on 10/23/2021 at 21:17 ? ? ECG Data Interpretation: Paced rhythm with flutter MDM Narrative Medical decision making narrative: Patient had a ground level fall his only injury is found right intertrochanteric fracture. He has an arrhythmia on the monitor sometimes it is paced and then goes into aflutter. Pacemaker is interrogated this seems to be a chronic problem since February. It appears heart rate is typically controlled is currently 87. Patient is having spasms morphine does seem to help. Dr. Jacinto updated patient's symptoms test results will likely go to surgery in the afternoon tomorrow request NPO after midnight Dr. Segovia updated on patient's symptoms test results and accepts patient Discharge Plan Departure Patient Disposition: Admitted As Inpatient Clinical Impression: Closed fracture of right hip Admit Date/Time: 10/23/21 22:38 Admit Provider: Finesse Segovia
[2021-10-23] MEDS: MORPHINE 2 MG/ML INJ IV ×2 (21:50→22:44)
[2021-10-23 22:01] LABS: Add Manual Diff / Slide Review NO; Basophils Absolute Auto 100 /uL (0-100); Basophils Percent Auto 1.1 % (0-2); Eosinophils Absolute Auto 200 /uL (0-450); Eosinophils Percent Auto 3.3 % (2-4); Hematocrit 31.9 % (41-53); Hemoglobin 10.6 g/dL (13.5-17.5); Lymphocytes Absolute Auto 1500 /uL (1100-4500); Lymphocytes Percent Auto 28.9 % (25-40); Mean Corpuscular HGB Conc 33.3 % (30-36); Mean Corpuscular Hemoglobin 28.6 PG (26-34); Monocytes Absolute Auto 600 /uL (0-900); Monocytes Percent Auto 12.6 % (3-14); Neutrophils Absolute Auto 2800 /uL (1500-7000); Neutrophils Percent Auto 54.1 % (50-75); Platelet Count 233 X10^3/uL (150-400); Red Blood Cell Count 3.71 X10^6/uL (4.5-5.9); Red Cell Distribution Width 16.2 % (11.6-14.8); White Blood Cell Count 5.1 X10^3/uL (4.5-11.0)
[2021-10-23 22:04] LABS: Alanine Aminotransferase 31 IU/L (<50); Albumin 3.8 g/dL (3.5-5.0); Albumin Globulin Ratio 1.5 (1.0-2.8); Alkaline Phosphatase 48 U/L (38-126); Aspartate Aminotransferase 39 IU/L (17-59); BUN Creatinine Ratio 16.2 (6-22); Bilirubin Total 0.5 mg/dL (0.2-1.3); Blood Urea Nitrogen 19 mg/dL (9-20); Calcium 9.3 mg/dL (8.4-10.2); Carbon Dioxide 24 mmol/L (22-32); Chloride 101 mmol/L (98-107); Creatine Kinase 44 U/L (55-170); Estimated Glomerular Filt Rate 59.1 mL/min (>60); Globulin 2.6 g/dL (1.7-4.1); Glucose 116 mg/dL (80-110); Lipase 103 U/L (23-300); Potassium 4.7 mmol/L (3.4-5.1); Sodium 131 mmol/L (137-145); Total Protein 6.4 g/dL (6.3-8.2)
[2021-10-23 22:06] LABS: HEMOLYSIS 58 (0-50)
[2021-10-23 22:10] LABS: COVID19 -Nasal RAPID Negative (Negative)
[2021-10-23 22:15] LABS: Troponin I < 0.012 ng/mL (0.01-0.034)
--- NOTE | 2021-10-23 23:01 | P.CONS_ITS ---
History of Present Illness Consult details Date Patient Seen: 10/24/21 Time Patient Seen: 09:47 Chief complaint: GLF Reason for consult: right hip (IT) fx Requesting provider: Arlette Jenkins Narrative: Sotero is an 86-year-old male with a history of CVA, coronary artery disease, memory deficit, diabetes, cardiac stents and pacemaker. He had a ground level fall last evening when he was reaching for a toothbrush in the bathroom. Fell onto his right side and sustained immediate hip pain was unable to get up. He also complained of elbow pain in the ER but states this is no longer bothering him. Normally uses a walker or a cane or wheelchair to get around his house. 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 He is able to endorse hip pain with movement but states it is not bad when he is lying still. He also has a history of both a cervical spine ACDF and lumbar spinal fusions and has chronic low back pain. He takes anti-platelet medication. In the emergency room he had a thorough workup his pacemaker was interrogated. He was found to have a displaced right intertrochanteric femur fracture. X-rays of his right elbow were taken demonstrated calcific tendinitis but no fractures. CT head and neck demonstr ated no acute processes in the head and cervical spine. Evidence of prior C5 through 7 ACDF was noted. This morning patient only complaining of right hip pain with motion. is at bedside. Meds Home Medications and Allergies Home Medications Medication Instructions Recorded Confirmed Type nitroglycerin 0.4 mg sublingual 0.4 mg SL Q5-15M PRN #30 tab 06/29/18 10/23/21 Rx tablet levothyroxine 75 mcg tablet 75 mcg PO QAM 08/27/18 10/23/21 History aspirin 81 mg tablet,delayed 81 mg PO QAM 12/24/18 10/23/21 History release (Adult Low Dose Aspirin) atorvastatin 20 mg tablet 20 mg PO QAM 09/23/20 10/23/21 History duloxetine 30 mg capsule,delayed 30 mg PO BEDTIME 09/23/20 10/23/21 History release esomeprazole magnesium 40 mg 40 mg PO BID 09/23/20 10/23/21 History capsule,delayed release ondansetron HCl 4 mg tablet 4 mg PO TID PRN 09/23/20 10/23/21 History magnesium oxide 400 mg (241.3 mg 400 mg PO BID #180 tab 10/08/20 10/23/21 Rx magnesium) tablet glipizide 2.5 mg tablet, extended 2.5 mg PO DAILY 01/14/21 10/23/21 History release 24 hr metoprolol succinate 25 mg 25 mg PO BEDTIME 03/14/21 10/23/21 History tablet,extended release 24 hr metoprolol succinate 25 mg 25 mg PO DAILY 03/14/21 10/23/21 History tablet,extended release 24 hr amiodarone 200 mg tablet 100 mg PO DAILY 10/23/21 10/23/21 History hydrocodone 5 mg-acetaminophen 325 1 tab PO Q6H PRN 10/23/21 10/23/21 History mg tablet metformin 1,000 mg tablet 500 mg PO BID 10/23/21 10/23/21 History ticagrelor 90 mg tablet (Brilinta) 90 mg PO BID 10/23/21 10/23/21 History Allergies Allergy/AdvReac Type Severity Reaction Status Date / Time [id number] Reductase Allergy Intermediate MUSCLE PAIN Verified 10/23/21 20:47 Inhibitor [[id number]-LGQ-ISM REDUCTASE INHIBITOR] piroxicam [PIROXICAM] Allergy Mild NAUSEA, Verified 10/23/21 20:47 VOMITING dabigatran etexilate AdvReac Hematuria Verified 10/23/21 20:47 Review of Systems Review of Systems Narrative: History of AFib and locked for procedure pacemaker and stent. History of stroke without residuals after tPA. Diabetes. Memory deficit, chronic low back pain. Prior cervical ACDF, weakness limited ability. States uses walker for ambulation and can only go so far and when he gets there he is very tired and ?done? ROS: Yes All systems reviewed with the patient and are negative except as otherwise documented Exam Vital Signs (past 8 hours): - 10/23/21 20:36 10/23/21 20:38 10/23/21 20:44 Temperature 97.7 F Pulse Rate 89 90 86 Respiratory Rate 18 Blood Pressure 187/102 H 178/99 H Pulse Oximetry 99 99 94 10/23/21 21:07 10/23/21 21:08 10/23/21 21:30 Temperature Pulse Rate 85 85 81 Respiratory Rate 19 Blood Pressure 158/92 H 143/79 H Pulse Oximetry 97 99 96 10/23/21 22:00 10/23/21 22:30 Temperature Pulse Rate 85 86 Respiratory Rate 16 Blood Pressure 124/76 123/74 Pulse Oximetry 96 98 Oxygen Delivery Method Room Air Narrative Exam Narrative: General examination. Patient is alert on examination provides the history of his fall. His acts as an independent historian for additional details HEENT exam normocephalic atraumatic. Demonstrates neck flexion and extension without pain. Prior ACDF Respiratory exam lungs clear to auscultation bilaterally. Breathing unlabored on room air Cardiac regular rate-pacemaker scar present Abdomen soft Genitourinary: No Adams present at this time Musculoskeletal examination: Bilateral upper extremities. No swelling. Full range of motion. No tenderness to palpation. Palpated around the right elbow no swelling. Demonstrates active flexion and extension. Sensation grossly intact. No erythema. Left lower extremity full range of motion. No tenderness to palpation. Normal alignment. 5/5 dorsiflexion plantar flexion wiggles toes. Right lower extremity is externally rotated. Tenderness around the hip. No pain or swelling around the knee. Thigh soft calf soft. Demonstrates active dorsiflexion plantar flexion wiggles toes. Palpable dorsalis pedis pulses bilaterally Objective Imaging AP pelvis and right lateral hip x-ray: My impression: Two-part intertrochanteric hip fracture right hip. Postoperative changes from a lumbar spinal fusion with presence of pedicle screws rods and cages. Radiologist's impression: IMPRESSION: Acute inter trochanteric right hip fracture, mild to moderate bilaterally symmetric hip joint osteoarthritis. Stable appearing spine fusion procedure with devices showing no sign of disruption spanning from L4 through S1. Dictated by: Arnaldo Thompson M.D. on 10/23/2021 at 21:17 Labs Result Diagrams: 10/24/21 05:05 10/24/21 05:05 Labs: Laboratory Results - last 24 hr 10/23/21 10/23/21 10/23/21 21:40 21:40 21:47 WBC 5.1 RBC 3.71 L Hgb 10.6 L Hct 31.9 L MCV 86.0 MCH 28.6 MCHC 33.3 RDW 16.2 H Plt Count 233 Neut % (Auto) 54.1 Lymph % (Auto) 28.9 [place] % (Auto) 12.6 Eos % (Auto) 3.3 Baso % (Auto) 1.1 Neut # (Auto) 2800 Lymph # (Auto) 1500 [place] # (Auto) 600 Eos # (Auto) 200 Baso # (Auto) 100 Sodium 131 L Potassium 4.7 Chloride 101 Carbon Dioxide 24 BUN 19 Creatinine 1.17 Estimated GFR 59.1 L BUN/Creatinine Ratio 16.2 Glucose 116 H Calcium 9.3 Total Bilirubin 0.5 AST 39 ALT 31 Alkaline Phosphatase 48 Total Creatine Kinase 44 L CK-MB (CK-2) TNP CK-MB (CK-2) Rel Index TNP Troponin I < 0.012 Total Protein 6.4 Albumin 3.8 Globulin 2.6 Albumin/Globulin Ratio 1.5 Lipase 103 SARS-CoV-2 (PCR) Negative [facility] Medical History Anxiety Arthritis CAD (coronary artery disease) DDD (degenerative disc disease), cervical Depression Diabetes Dyslipidemia Dysuria Elevated serum homocysteine level Heart attack History of angina History of CVA (cerebrovascular accident) History of dizziness History of esophageal reflux History of fatigue History of hematuria Impotence Lumbosacral radiculopathy at L5 Memory deficit Neuropathy of both feet Nocturia Nocturia Osteoarthritis Pacemaker (~2013) Paroxysmal A-fib 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 RBBB Renal insufficiency Sick sinus syndrome Sleep apnea (~2012) Spinal stenosis in cervical region Spinal stenosis of lumbar region Thyroid disease TIA (transient ischemic attack) Urinary retention Surgical History H/O laminectomy H/O shoulder surgery H/O thumb surgery History of appendectomy History of bladder surgery History of cardiac cath (~2012) History of cholecystectomy (~2012) History of cystoscopy History of fusion of cervical spine History of lumbar fusion History of tonsillectomy History of vasectomy S/P drug eluting coronary stent placement Status post right foot surgery Social History marital status: details: to Siri, lives in [place] household members: spouse lives independently: Yes caregiver/support person: No housing: house Tobacco & Substance Use Smoking Status: Never smoker alcohol intake: current substance use type: does not use Assessment & Plan Assessment and plan (1) Closed fracture of right hip: Qualifiers: Encounter type: initial encounter Qualified Code(s): S72.001A - Fracture of unspecified part of neck of right femur, initial encounter for cl osed fracture Status: Acute (2) Acute on chronic blood loss anemia: Status: Acute Plan Patient is an 86-year-old male with multiple medical comorbidities. He had a ground level fall and sustained a right intertrochanteric hip fracture. He has been indicated for surgical fixation. He also has acute on chronic anemia likely related to blood loss from the acute fracture. Discussed with this fracture and with surgery there may be additional blood loss. Discussed if symptomatic may require a perioperative transfusion. Patient and patient's POA gave consent for this if indicated. Assessment & Plan narrative: the pt sustained a right IT hip fracture. He has been indicated for surgery to allow early weightbearing, pain control, stability and to reduce the risks associated with prolonged immobility. His pacemaker was interogated in the ER. He is on asa and brilinta these may be continued dany-operatively Will use TXA to help reduce blood loss. Ancef for preoperative antibiotic. plan for OR once optimized by Internal medicine admitting service. Likely OR time around 1pm. NPO MN The risks and benefits of the procedure have been discussed with the patient even opportunity to ask questions. The risks of surgery include but are not limited to infection, malunion, nonunion, failure of hardware, need for blood transfusion, persistence of pain, damage to nerves and blood vessels, posttraumatic arthritis, DVT, PE, cardiopulmonary complications and . The patient expressed a thorough understanding of the risks and benefits of surgery and has elected to proceed. Consent was signed. By the patient's POA his Siri COVID-19 COVID-19 status: Negative Result date/Date tested (Pos, Neg/Pending): 10/23/21 Time Spent With Patient Time with patient: less than 30 minutes Critical Care time: I spent a total of [] minutes of critical care time on this patient's care today; this time is exclusive of procedural time.
[2021-10-24] VITALS (17 sets, daily range): BP systolic 108–161; BP diastolic 65–89; PULSE 70–91; RESP 10–24; TEMP 36–36.7; O2SAT 94–99
--- NOTE | 2021-10-24 | DI.RAD.S_ITS ---
PROCEDURE: XR HIP W PEL IF DONE RT 2V INDICATIONS: RIGHT HIP SURGERY TECHNIQUE: Fluoroscopic images were obtained during an operative procedure and submitted for interpretation following the completion of the procedure. COMPARISON: [facility], , XR HIP W PEL IF DONE RT 2V, 10/23/2021, 20:36. FINDINGS: These fluoroscopic images were performed for intraoperative localization. On these images, fixation hardware is seen involving the right proximal femur. Please correlate with intraoperative findings. IMPRESSION: Normal intraoperative examination. Dictated by: Good Peña M.D. on 10/24/2021 at 14:24 Approved by: Good Peña M.D. on 10/24/2021 at 14:24
[2021-10-24] MEDS: ASPIRIN EC 81 MG TABLET PO ×2 (00:16→09:10)
[2021-10-24] MEDS: SODIUM CHLORIDE 0.9% 1,000 ML 75 ML IV ×2 (00:16→16:02)
[2021-10-24] MEDS: MORPHINE 2 MG/ML INJ IV ×2 (02:54→11:24)
[2021-10-24 05:16] LABS: Add Manual Diff / Slide Review NO; Basophils Absolute Auto 100 /uL (0-100); Basophils Percent Auto 0.8 % (0-2); Eosinophils Absolute Auto 100 /uL (0-450); Eosinophils Percent Auto 1.3 % (2-4); Hematocrit 31.3 % (41-53); Hemoglobin 10.5 g/dL (13.5-17.5); Lymphocytes Absolute Auto 1400 /uL (1100-4500); Lymphocytes Percent Auto 20.3 % (25-40); Mean Corpuscular HGB Conc 33.4 % (30-36); Mean Corpuscular Hemoglobin 28.8 PG (26-34); Mean Corpuscular Volume 86.1 fL (80-100); Monocytes Absolute Auto 900 /uL (0-900); Monocytes Percent Auto 12.7 % (3-14); Neutrophils Absolute Auto 4500 /uL (1500-7000); Neutrophils Percent Auto 64.9 % (50-75); Platelet Count 204 X10^3/uL (150-400); Red Blood Cell Count 3.63 X10^6/uL (4.5-5.9); Red Cell Distribution Width 16.9 % (11.6-14.8); White Blood Cell Count 6.9 X10^3/uL (4.5-11.0)
[2021-10-24 05:29] LABS: BUN Creatinine Ratio 16.5 (6-22); Blood Urea Nitrogen 18 mg/dL (9-20); Calcium 8.8 mg/dL (8.4-10.2); Carbon Dioxide 25 mmol/L (22-32); Chloride 100 mmol/L (98-107); Estimated Glomerular Filt Rate > 60.0 mL/min (>60); Glucose 133 mg/dL (80-110); HEMOLYSIS < 15 (0-50); Potassium 4.5 mmol/L (3.4-5.1); Sodium 131 mmol/L (137-145)
[2021-10-24] MEDS: AMIODARONE 200 MG TABLET 100 MG PO (09:04)
[2021-10-24] MEDS: METOPROLOL ER 25 MG TABLET PO (09:06)
[2021-10-24] MEDS: PANTOPRAZOLE DR 40 MG TABLET PO ×2 (09:06→21:18)
[2021-10-24] MEDS: INSULIN LISPRO 100 UNIT/ML 3ML VIAL SUBCUT ×2 (09:46→17:05)
--- NOTE | 2021-10-24 09:47 | P.HP_ITS ---
History of Present Illness History of Present Illness Date Patient Seen: 10/24/21 Time Patient Seen: 09:47 Date of Onset of Symptoms: 10/23/21 Chief complaint: GLF Narrative: Patient is a 86-year-old male with complicated medical history and multiple risk factors for complications who presents with fall while brushing his teeth. He twisted around to get some tooth paste and felt like he was going off balance tried to grab the door edge and then fell. Having immediate pain in his right hip. He had no palpitations no shortness of breath no chest pain it otherwise been feeling in great shape. He denies any hitting of his head and really felt like he fell otherwise pretty well. If it would have been for his hip. He otherwise has had no problems. Is feeling well. It other than his pain he has been feeling well I hear. Patient otherwise has had no fevers no chills no shortness of breath no chest pain. No headaches no visual symptoms or other complaints. Patient History Medical History Anxiety Arthritis CAD (coronary artery disease) DDD (degenerative disc disease), cervical Depression Diabetes Dyslipidemia Dysuria Elevated serum homocysteine level Heart attack History of angina History of CVA (cerebrovascular accident) History of dizziness History of esophageal reflux History of fatigue History of hematuria Impotence Lumbosacral radiculopathy at L5 Memory deficit Neuropathy of both feet Nocturia Nocturia Osteoarthritis Pacemaker (~2013) Paroxysmal A-fib 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 RBBB Renal insufficiency Sick sinus syndrome Sleep apnea (~2012) Spinal stenosis in cervical region Spinal stenosis of lumbar region Thyroid disease TIA (transient ischemic attack) Urinary retention Surgical History H/O laminectomy H/O shoulder surgery H/O thumb surgery History of appendectomy History of bladder surgery History of cardiac cath (~2012) History of cholecystectomy (~2012) History of cystoscopy History of fusion of cervical spine History of lumbar fusion History of tonsillectomy History of vasectomy S/P drug eluting coronary stent placement Status post right foot surgery Family & Social History Social History: household members spouse lives independently Yes caregiver/support person No Safety & Behavioral: Feels Safe in Current Yes Environment Tobacco & Substance use: Smoking Status Never smoker alcohol intake current alcohol intake frequency holiday/special occasion Substance Use Type does not use Meds Home Medications and Allergies Home Medications Medication Instructions Recorded Confirmed Type nitroglycerin 0.4 mg sublingual 0.4 mg SL Q5-15M PRN #30 tab 06/29/18 10/23/21 Rx tablet levothyroxine 75 mcg tablet 75 mcg PO QAM 08/27/18 10/23/21 History aspirin 81 mg tablet,delayed 81 mg PO QAM 12/24/18 10/23/21 History release (Adult Low Dose Aspirin) atorvastatin 20 mg tablet 20 mg PO QAM 09/23/20 10/23/21 History duloxetine 30 mg capsule,delayed 30 mg PO BEDTIME 09/23/20 10/23/21 History release esomeprazole magnesium 40 mg 40 mg PO BID 09/23/20 10/23/21 History capsule,delayed release ondansetron HCl 4 mg tablet 4 mg PO TID PRN 09/23/20 10/23/21 History magnesium oxide 400 mg (241.3 mg 400 mg PO BID #180 tab 10/08/20 10/23/21 Rx magnesium) tablet glipizide 2.5 mg tablet, extended 2.5 mg PO DAILY 01/14/21 10/23/21 History release 24 hr metoprolol succinate 25 mg 25 mg PO BEDTIME 03/14/21 10/23/21 History tablet,extended release 24 hr metoprolol succinate 25 mg 25 mg PO DAILY 03/14/21 10/23/21 History tablet,extended release 24 hr amiodarone 200 mg tablet 100 mg PO DAILY 10/23/21 10/23/21 History hydrocodone 5 mg-acetaminophen 325 1 tab PO Q6H PRN 10/23/21 10/23/21 History mg tablet metformin 1,000 mg tablet 500 mg PO BID 10/23/21 10/23/21 History ticagrelor 90 mg tablet (Brilinta) 90 mg PO BID 10/23/21 10/23/21 History Allergies Allergy/AdvReac Type Severity Reaction Status Date / Time [id number] Reductase Allergy Intermediate MUSCLE PAIN Verified 10/23/21 20:47 Inhibitor [TPQRZHP-OIN-WFO REDUCTASE INHIBITOR] piroxicam [PIROXICAM] Allergy Mild NAUSEA, Verified 10/23/21 20:47 VOMITING dabigatran etexilate AdvReac Hematuria Verified 10/23/21 20:47 Review of Systems Review of Systems Narrative: See history and physical for pertinent positives or negatives otherwise all negative Exam Vital Signs (past 8 hours): - 10/24/21 03:46 Temperature 98.0 F Pulse Rate 89 Respiratory Rate 18 Blood Pressure 113/72 Pulse Oximetry 97 Oxygen Delivery Method Room Air Oxygen Flow Rate 0 Narrative Exam Narrative: alert smiling elderly male in no acute distress. HEENT exam is unremarkable neck supple without adenopathy JVD or bruits. Lungs are clear. Heart regular rate and rhythm. Abdomen is soft positive bowel sounds nontender extremities without cyanosis clubbing edema. Did not range his right leg. Neurologic exam appears normal. He is alert and oriented. Objective ECG Impression: Paced rhythm with flutter Labs Result Diagrams: 10/24/21 05:05 10/24/21 05:05 Labs: Laboratory Results - last 24 hr 10/23/21 10/23/21 10/23/21 21:40 21:40 21:47 WBC 5.1 RBC 3.71 L Hgb 10.6 L Hct 31.9 L MCV 86.0 MCH 28.6 MCHC 33.3 RDW 16.2 H Plt Count 233 Neut % (Auto) 54.1 Lymph % (Auto) 28.9 [place] % (Auto) 12.6 Eos % (Auto) 3.3 Baso % (Auto) 1.1 Neut # (Auto) 2800 Lymph # (Auto) 1500 [place] # (Auto) 600 Eos # (Auto) 200 Baso # (Auto) 100 Sodium 131 L Potassium 4.7 Chloride 101 Carbon Dioxide 24 BUN 19 Creatinine 1.17 Estimated GFR 59.1 L BUN/Creatinine Ratio 16.2 Glucose 116 H Calcium 9.3 Total Bilirubin 0.5 AST 39 ALT 31 Alkaline Phosphatase 48 Total Creatine Kinase 44 L CK-MB (CK-2) TNP CK-MB (CK-2) Rel Index TNP Troponin I < 0.012 Total Protein 6.4 Albumin 3.8 Globulin 2.6 Albumin/Globulin Ratio 1.5 Lipase 103 SARS-CoV-2 (PCR) Negative 10/24/21 10/24/21 05:05 05:05 WBC 6.9 RBC 3.63 L Hgb 10.5 L Hct 31.3 L MCV 86.1 MCH 28.8 MCHC 33.4 RDW 16.9 H Plt Count 204 Neut % (Auto) 64.9 Lymph % (Auto) 20.3 L [place] % (Auto) 12.7 Eos % (Auto) 1.3 L Baso % (Auto) 0.8 Neut # (Auto) 4500 Lymph # (Auto) 1400 [place] # (Auto) 900 Eos # (Auto) 100 Baso # (Auto) 100 Sodium 131 L Potassium 4.5 Chloride 100 Carbon Dioxide 25 BUN 18 Creatinine 1.09 Estimated GFR > 60.0 BUN/Creatinine Ratio 16.5 Glucose 133 H Calcium 8.8 Total Bilirubin AST ALT Alkaline Phosphatase Total Creatine Kinase CK-MB (CK-2) CK-MB (CK-2) Rel Index Troponin I Total Protein Albumin Globulin Albumin/Globulin Ratio Lipase SARS-CoV-2 (PCR) Assessment & Plan Assessment & Plan narrative: right hip fracture. As per Dr. Quintanilla. Will be repaired today. Discussed with patient given his history of heart disease he is moderate risk. But really no options at this time. Him and his understand questions answered. Coronary artery disease. Patient with history of stenting. On anti-platelet therapy. Currently appears stable. Discussed with Dr. Quintanilla. Okay to continue his anti-platelet therapy. Otherwise will continue his usual meds and continue to follow. Nitro as needed. Will symptomatically watch for changes. History of CVA. Patient with history of multiple strokes in the past. Patient will need to be followed closely but currently stable. No risk at this time. Atrial fibrillation. Approximate was normal. Patient is paced. Certainly not at high risk at this time. Patient has had a atrial occlusion procedure and is not in need of anticoagulation. Otherwise is stable. Type 2 diabetes. Patient's control seems to be good. Will hold p.o. meds and do sliding scale hopefully tomorrow we can restart those. Hypothyroidism. Continue levothyroxine. BPH. Will need to watch closely. Patient tight risk for need for longer-term catheterization. Would recommend keeping it in at least the next 24 hours. History of renal insufficiency. Will follow labs. Recheck labs tomorrow. Depression. Stable on duloxetine. History of hyponatremia. Stable. Will follow. DVT prophylaxis SCDs. Code status DNR DNI. Disposition. Suspect 2 or 3 days postop observation and follow with probable sniff placement depending on how things go. Time Spent With Patient Critical Care time: I spent a total of [] minutes of critical care time on this patient's care today; this time is exclusive of procedural time.
--- NOTE | 2021-10-24 11:42 | PC.NURSE ---
Adams catheter placement attempted per order with standard 16 Brazilian cath. This nurse unable to advance the catheter, with pt bearing down and repositioning him, past the prostate and the attempt made the patient visibly uncomfortable. Report was given to Mame in surgery in regards to the attempt to cath this patient and request was made to cath the pt in surgery when he was under anesthesia to save him from discomfort. Pt has been given his morning meds including his anti-platelett, Tricagrelor, and an 81mg baby aspirin per Dr. Veras.
[2021-10-24] MEDS: LACTATED RINGERS 1,000 ML 42 ML IV ×2 (12:50→14:40)
[2021-10-24] MEDS: CEFAZOLIN 2 GM/20 ML SYRINGE IV ×2 (13:29→22:12)
--- NOTE | 2021-10-24 13:56 | SUR.OPER ---
Supine on padded [place] table with bilateral legs secured in padded positioning boots and suspended in positioning spars, operative leg in traction per surgeon. Head on one pillow. Arm on non-operative side secured on padded armboard <90 degrees abduction. Arm on operative side padded and resting across chest then secured with tape over sheet. Padded perineal post in place per surgeon.
[2021-10-24] MEDS: BUPIVACAINE 0.25% (PF) 30 ML, EPINEPHrine 0.15 MG INJ (14:08)
--- NOTE | 2021-10-24 14:50 | P.OP_ITS ---
Operative Date/Time/Diagnoses Date of procedure: 10/24/21 Time of procedure: 13:45 Pre-op diagnosis: Right intertrochanteric hip fracture s72.001a Post-op diagnosis: same Procedure & Clinicians Procedure: Fixation intertrochanteric hip fracture right with intramedullary tisha CPT code 04687 Same procedure as scheduled: Yes Indications: The patient sustained a right intertrochanteric hip fracture and was indicated for operative fixation. The risks, benefits, and alternatives of procedure were discussed at length with the patient and his /POA, and they expressed understanding. These included bleeding, possible need for a transfusion, infection, damage to nerves, pain, malunion, nonunion, failure of hardware, need for additional surgery, blood clots, pulmonary embolism and cardiovascular and pulmonary risks associated with general anesthesia, pneumonia, stroke, myocardial infarction, paralysis, . Consent was signed. The site of surgery was marked. Surgeon: Leslie Veras Click Yes if Unassisted: Yes Anesthesia Type: General and Local Operative Notes Findings: Two-part mildly displaced right intertrochanteric hip fracture. This reduced well to anatomic alignment on the fracture table. The starting point was identified and the fracture was stabilized with a Kiran and nephew intertan cephalomedullary nail 11.5 mm x 18 cm. With lag screw and interlocking compression screw. This was statically locked distally with a 35 mm screw Closure Type: primary Specimen(s): none sent Applied: implant(s) (Kiran and nephew intertan 11.5x 18 nail, 100/95, 35mm screws) Estimated Blood Loss (mL): 200 Blood products transfused: none Tourniquet time (min): 0 Procedure in detail: Procedure cephalomedullary nail intertrochanteric hip fracture the CPT code 96069 Side: Right Implant Kiran and Nephew 11.5 x 18 cm cephalomedullary nail intertan Procedure: The patient was seen and the site of surgery was marked in the preoperative area. This was the right hip. Patient was brought to the operating room and placed on the operative table and general anesthesia was administered. The patient was positioned on the fracture table in standard fashion with a well-padded boots and a padded peroneal post. An SCD was on the contralateral leg. A formal time-out was called to confirm the patient's side and site of surgery administration of preoperative antibiotics. All were in agreement. The operative leg was then gently manipulated under fluoroscopic guidance to obtain a closed reduction in near anatomic alignment. At this point the operative extremity was prepped and draped in the standard sterile manner. The starting point was marked out using fluoroscopic guidance and marked on the skin. A guidewire was placed percutaneously and the starting point was obtained. Incisi on was made over the guidewire. An opening drill was inserted to the level of the lesser trochanter. The opening Reamer and guidewire were then removed. An 18 cm cephalomedullary nail was selected. The 11.5 x 18 cm nail was then slid into the canal. The nail was advanced to the proper depth and rotation. The guide for the cephalomedullary screw was then inserted into the external handle. An incision was made and the guide was placed down to the bone. A guidewire was placed to the proper depth into the femoral head and this was confirmed on AP and lateral imaging. The tip apex distance was evaluated and appropriate. This was measured. Next the outer cortex was drilled for the interlocking screw and the anti rotation bar was placed. The cephalomedullary screw length was then measured off the drill again. A 100 mm lag screw was selected and the corresponding interlocking compression screw. A guidewire was then over drilled and the lag screw placed. The anti rotation bar was removed and then the locking compression screws were placed and confirmed on biplanar fluoroscopy. The integrated compression screw was tightened. Attention was turned to the distal interlock. This was placed with the guide in the standard technique. AP and lateral images were captured in the or confirming alignment hardware placement. Wounds were irrigated and closed in layers with 2- 0 in the subcutaneous tissue and rochelle in the skin. 0.25% Marcaine with epinephrine was injected into the incision sites for local anesthetic. Sterile dressings were applied. There no immediate complications. Surgical counts were correct. The patient tolerated the procedure well was taken to recovery room. Complications: none Post-operative Condition: stable Disposition: PACU Plan for aftercare: Postoperative plan. Weightbear as tolerated to the surgical extremity. Work with physical therapy and occupational therapy. Discharge by primary team. Likely assisted versus home with assistance. Monitor hemoglobin and hematocrit postoperatively may require transfusion if needed. Encourage incentive spirometry. SCDs and Lovenox for DVT prophylaxis. Recommend Lovenox 4 weeks for hip fracture, can consider aspirin alone though if ambulating well. Patient will continue his anti-platelet medications. Follow-up [facility] in 2 weeks for wound check, staple removal and repeat x- rays. Keep dressing clean dry and intact. May change dressing if saturated.
[2021-10-24] MEDS: fentaNYL 100 MCG/2 ML INJ IV (15:07)
[2021-10-24] MEDS: OXYCODONE IR 5 MG TABLET PO (17:41)
--- NOTE | 2021-10-24 21:32 | PC.NURSE ---
Addendum entered by Michelle Goldberg R.N. 10/25/21 02:42: pt woke up more alert around 0215 but was confused/forgetful and did not remember that he had already had surgery. Pt did remember that he fell and hurt his hip but he was trying to get out of bed and stated he wanted to get up. Pt stated that pain was a 10/10 and this RN observed that patient was not straight in bed d/t trying to get up. Pt was repositioned in bed and 5mg Oxycodone was given for pain. Addendum entered by Michelle Goldberg R.N. 10/24/21 23:21: Pt is still very sleepy from surgery and when woken to ask if he would like to take his medications again patient continues to decline the medication. Will continue to monitor and notify provider as needed. Original Note: Pt started to take 2100 medications and as only able to swallow the Protonix at this time. Pt was burping but denied feeling Nauseous. Pt refused to attempt to take any more medications at this time and would like to try again in a little bit. Will recheck with pt in 15 min.
[2021-10-25] VITALS (10 sets, daily range): BP systolic 94–128; BP diastolic 53–76; PULSE 75–97; RESP 15–18; TEMP 36.3–37.6; O2SAT 96–100
[2021-10-25] MEDS: OXYCODONE IR 5 MG TABLET PO ×3 (02:24→21:52)
[2021-10-25] MEDS: SODIUM CHLORIDE 0.9% 1,000 ML 75 ML IV (06:04)
[2021-10-25] MEDS: CEFAZOLIN 2 GM/20 ML SYRINGE IV (06:06)
[2021-10-25] MEDS: LEVOTHYROXINE 75 MCG TABLET PO (06:06)
[2021-10-25 06:21] LABS: Add Manual Diff / Slide Review NO; Basophils Absolute Auto 0 /uL (0-100); Basophils Percent Auto 0.5 % (0-2); Eosinophils Absolute Auto 0 /uL (0-450); Eosinophils Percent Auto 0.3 % (2-4); Hematocrit 26.5 % (41-53); Hemoglobin 8.9 g/dL (13.5-17.5); Lymphocytes Absolute Auto 1100 /uL (1100-4500); Lymphocytes Percent Auto 15.1 % (25-40); Mean Corpuscular HGB Conc 33.6 % (30-36); Mean Corpuscular Hemoglobin 28.9 PG (26-34); Monocytes Absolute Auto 1200 /uL (0-900); Neutrophils Absolute Auto 5000 /uL (1500-7000); Neutrophils Percent Auto 68.1 % (50-75); Platelet Count 187 X10^3/uL (150-400); Red Blood Cell Count 3.08 X10^6/uL (4.5-5.9); Red Cell Distribution Width 16.5 % (11.6-14.8); White Blood Cell Count 7.4 X10^3/uL (4.5-11.0)
[2021-10-25 06:30] LABS: Alanine Aminotransferase 23 IU/L (<50); Albumin 3.1 g/dL (3.5-5.0); Albumin Globulin Ratio 1.3 (1.0-2.8); Alkaline Phosphatase 52 U/L (38-126); Aspartate Aminotransferase 30 IU/L (17-59); BUN Creatinine Ratio 14.4 (6-22); Bilirubin Total 0.7 mg/dL (0.2-1.3); Blood Urea Nitrogen 16 mg/dL (9-20); Calcium 8.6 mg/dL (8.4-10.2); Carbon Dioxide 25 mmol/L (22-32); Chloride 102 mmol/L (98-107); Estimated Glomerular Filt Rate > 60.0 mL/min (>60); Globulin 2.3 g/dL (1.7-4.1); Glucose 152 mg/dL (80-110); HEMOLYSIS < 15 (0-50); Potassium 4.5 mmol/L (3.4-5.1); Sodium 131 mmol/L (137-145); Total Protein 5.4 g/dL (6.3-8.2)
--- NOTE | 2021-10-25 07:42 | PM.PNPO.1 ---
Subjective Subjective Date Patient Seen: 10/25/21 Time Patient Seen: 07:42 Interval history: Patient is complaining of moderate pain this morning. He is mildly confused, asking where his is this morning. Exam Vital Signs (past 8 hours): - 10/25/21 01:21 10/25/21 05:46 Temperature 97.5 F L 99.7 F H Pulse Rate 97 H 90 Respiratory Rate 16 18 Blood Pressure 113/60 94/61 Pulse Oximetry 97 96 Oxygen Delivery Method Room Air Oxygen Flow Rate 0 Narrative Exam Narrative: Pleasant, but somewhat confused, 86-year-old male, resting comfortably in bed, no acute distress. Incision demonstrates some serosanguineous drainage, no surrounding erythema or induration. Bilateral lower extremity: Motor function is grossly intact, sensation is grossly intact to light touch, calves are soft and nontender to palpation. Objective Labs Result Diagrams: 10/25/21 06:04 10/25/21 06:04 Labs: Laboratory Results - last 24 hr 10/25/21 10/25/21 06:04 06:04 WBC 7.4 RBC 3.08 L Hgb 8.9 L Hct 26.5 L MCV 86.0 MCH 28.9 MCHC 33.6 RDW 16.5 H Plt Count 187 Neut % (Auto) 68.1 Lymph % (Auto) 15.1 L [place] % (Auto) 16.0 H Eos % (Auto) 0.3 L Baso % (Auto) 0.5 Neut # (Auto) 5000 Lymph # (Auto) 1100 [place] # (Auto) 1200 H Eos # (Auto) 0 Baso # (Auto) 0 Sodium 131 L Potassium 4.5 Chloride 102 Carbon Dioxide 25 BUN 16 Creatinine 1.11 Estimated GFR > 60.0 BUN/Creatinine Ratio 14.4 Glucose 152 H Calcium 8.6 Total Bilirubin 0.7 AST 30 ALT 23 Alkaline Phosphatase 52 Total Protein 5.4 L Albumin 3.1 L Globulin 2.3 Albumin/Globulin Ratio 1.3 PFS Medical History Anxiety Arthritis CAD (coronary artery disease) DDD (degenerative disc disease), cervical Depression Diabetes Dyslipidemia Dysuria Elevated serum homocysteine level Heart attack History of angina History of CVA (cerebrovascular accident) History of dizziness History of esophageal reflux History of fatigue History of hematuria Impotence Lumbosacral radiculopathy at L5 Memory deficit Neuropathy of both feet Nocturia Nocturia Osteoarthritis Pacemaker (~2013) Paroxysmal A-fib 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 RBBB Renal insufficiency Sick sinus syndrome Sleep apnea (~2012) Spinal stenosis in cervical region Spinal stenosis of lumbar region Thyroid disease TIA (transient ischemic attack) Urinary retention Surgical History H/O laminectomy H/O shoulder surgery H/O thumb surgery History of appendectomy History of bladder surgery History of cardiac cath (~2012) History of cholecystectomy (~2012) History of cystoscopy History of fusion of cervical spine History of lumbar fusion History of tonsillectomy History of vasectomy S/P drug eluting coronary stent placement Status post right foot surgery Social History marital status: details: to Siri, lives in [place] household members: spouse lives independently: Yes caregiver/support person: No housing: house Smoking Status: Never smoker alcohol intake: current substance use type: does not use Assessment & Plan Post-op Postoperative Procedures: Procedures Operation Date: 10/24/21 13:30 Actual Procedure Side Surgeon p ORIF Hip/Intramedullary Hip Screw Right Leslie Veras MD Postoperative day: 1 Postoperative status narrative: Stable status post right hip ORIF/intramedullary hip screw. Blood loss anemia. Postoperative plan narrative: -Weightbear as tolerated to the surgical extremity. Work with physical therapy and occupational therapy. -Discharge by primary team: SNF versus home with assistance. -Monitor hemoglobin and hematocrit postoperatively may require transfusion if needed. Hemoglobin has dropped to 8.9 this morning, down from 10.6 two days ago. --Encourage incentive spirometry. SCDs and Lovenox for DVT prophylaxis. Recommend Lovenox 4 weeks for hip fracture, can consider aspirin alone though if ambulating well. Patient will continue his anti-platelet medications. -Follow-up [facility] in 2 weeks for wound check, staple removal and repeat x-rays. Keep dressing clean dry and intact. -change dressing if saturated.
--- NOTE | 2021-10-25 08:36 | P.PN_ITS ---
Subjective Subjective Date Patient Seen: 10/25/21 Time Patient Seen: 08:37 Interval history: Patient had an unremarkable night. He is complaining of difficulty sleeping and pain in his incision as well as his lower back. He is tolerating p.o. without difficulty. He denies any chest pain or shortness of breath. He is unsure of what he hit when he fell. He was not having back pain prior to her falling. He denies any pain going down his legs. Twelve point review of systems is otherwise negative Reviewed his ER workup and op note and hospitalization thus far. Exam Vital Signs (past 8 hours): - 10/25/21 01:21 10/25/21 05:46 Temperature 97.5 F L 99.7 F H Pulse Rate 97 H 90 Respiratory Rate 16 18 Blood Pressure 113/60 94/61 Pulse Oximetry 97 96 Oxygen Delivery Method Room Air Oxygen Flow Rate 0 Narrative Exam Narrative: Patient is slightly hypotensive at this time. T-max is 99.7?. Remainder of vitals are normal. Patient is alert and oriented x2. He is slightly confused. He is slow to answer questions. He is currently in pain. Neck: Supple without adenopathy Chest: Clear to auscultation without wheezes rhonchi crackles but decreased breath sounds bibasilar Cor: Irregularly irregular rhythm at a well controlled rate in the 60s. Distant S1-S2 Abdomen: Positive bowel sounds x4. No hepatosplenomegaly. No masses. No guarding. No rebound tenderness Extremities: No edema, pulses intact Incision clean and dry Objective Labs Result Diagrams: 10/25/21 06:04 10/25/21 06:04 Labs: Laboratory Results - last 24 hr 10/25/21 10/25/21 06:04 06:04 WBC 7.4 RBC 3.08 L Hgb 8.9 L Hct 26.5 L MCV 86.0 MCH 28.9 MCHC 33.6 RDW 16.5 H Plt Count 187 Neut % (Auto) 68.1 Lymph % (Auto) 15.1 L White % (Auto) 16.0 H Eos % (Auto) 0.3 L Baso % (Auto) 0.5 Neut # (Auto) 5000 Lymph # (Auto) 1100 [place] # (Auto) 1200 H Eos # (Auto) 0 Baso # (Auto) 0 Sodium 131 L Potassium 4.5 Chloride 102 Carbon Dioxide 25 BUN 16 Creatinine 1.11 Estimated GFR > 60.0 BUN/Creatinine Ratio 14.4 Glucose 152 H Calcium 8.6 Total Bilirubin 0.7 AST 30 ALT 23 Alkaline Phosphatase 52 Total Protein 5.4 L Albumin 3.1 L Globulin 2.3 Albumin/Globulin Ratio 1.3 PFSH Medical History Anxiety Arthritis CAD (coronary artery disease) DDD (degenerative disc disease), cervical Depression Diabetes Dyslipidemia Dysuria Elevated serum homocysteine level Heart attack History of angina History of CVA (cerebrovascular accident) History of dizziness History of esophageal reflux History of fatigue History of hematuria Impotence Lumbosacral radiculopathy at L5 Memory deficit Neuropathy of both feet Nocturia Nocturia Osteoarthritis Pacemaker (~2013) Paroxysmal A-fib 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 RBBB Renal insufficiency Sick sinus syndrome Sleep apnea (~2012) Spinal stenosis in cervical region Spinal stenosis of lumbar region Thyroid disease TIA (transient ischemic attack) Urinary retention Surgical History H/O laminectomy H/O shoulder surgery H/O thumb surgery History of appendectomy History of bladder surgery History of cardiac cath (~2012) History of cholecystectomy (~2012) History of cystoscopy History of fusion of cervical spine History of lumbar fusion History of tonsillectomy History of vasectomy S/P drug eluting coronary stent placement Status post right foot surgery Social History marital status: details: aisha Horner, lives in [place] household members: spouse lives independently: Yes caregiver/support person: No housing: house Smoking Status: Never smoker alcohol intake: current substance use type: does not use Assessment & Plan Assessment & Plan narrative: 86-year-old male with right hip fracture, postop day 2. Assessment and plan: 1. Right hip fracture Plan: Continue with PT and OT. Will continue with SCDs and Lovenox. Will work to get better pain control. Assessment 2. Acute exacerbation of chronic anemia with significant lowering in H&H. Plan: Will continue to monitor closely. If continues to trend down past 8 will go ahead and transfuse blood. Assessment 3. Atrial fibrillation with well-controlled rate Plan: Continue on amiodarone. Continue metoprolol but hold for bradycardia or hypotension. Will verify his medications in the clinic and determine if he is on a platelet inhibitor as well. Assessment number 4. Type 2 diabetes Plan: Will continue with sliding scale insulin. Will verify his dosage in the clinic of the metformin and make sure he is taking 500 mg twice daily. Assessment 5. Hyponatremia likely related to fracture and surgical procedure and overall comorbidities Plan: Will continue to trend. Will workup further if worsens. If hypotension continues will consider IV fluids Assessment 6. Back pain. Plan: Patient with a long history of this but consider possible injury with fall. Further imaging pending how he does over the day. Assessment 7. Depression Plan: Continue duloxetine Assessment 8. Hypomagnesemia Plan: Will check his magnesium with next labs Assessment 9. Hypothyroidism Plan: Continue on levothyroxine 38 minute spent with patient today Code status is DNR/DNI Time Spent With Patient Critical Care time: I spent a total of [] minutes of critical care time on this patient's care today; this time is exclusive of procedural time.
[2021-10-25] MEDS: ACETAMINOPHEN 325 MG TABLET 975 MG PO ×3 (08:46→21:22)
[2021-10-25] MEDS: METOPROLOL ER 25 MG TABLET PO (08:47)
[2021-10-25] MEDS: PANTOPRAZOLE DR 40 MG TABLET PO ×2 (08:47→21:22)
[2021-10-25] MEDS: DOCUSATE 100 MG CAPSULE PO ×2 (08:49→21:22)
[2021-10-25] MEDS: ASPIRIN EC 81 MG TABLET PO (08:49)
[2021-10-25] MEDS: AMIODARONE 200 MG TABLET 100 MG PO (08:49)
[2021-10-25] MEDS: ENOXAPARIN 40 MG/0.4 ML SYRINGE SUBCUT (08:49)
[2021-10-25] MEDS: INSULIN LISPRO 100 UNIT/ML 3ML VIAL SUBCUT ×3 (08:55→17:25)
--- NOTE | 2021-10-25 10:14 | PT.IIE ---
Current Diagnoses Acute posthemorrhagic anemia (10/23/21) Fracture of unspecified part of neck of right femur, initial encounter for closed fracture (10/23/21) Surgery Performed Operation Date: 10/24/21 13:30 Actual Procedures p ORIF Hip/Intramedullary Hip Screw(Right) - Leslie Veras MD Medical History (Last Reviewed 10/25/21 @ 07:43 by Elyse Ochoa PA-C) Anxiety Arthritis CAD (coronary artery disease) DDD (degenerative disc disease), cervical Depression Diabetes Dyslipidemia Dysuria Elevated serum homocysteine level Heart attack History of angina History of CVA (cerebrovascular accident) History of dizziness History of esophageal reflux History of fatigue History of hematuria Impotence Lumbosacral radiculopathy at L5 Memory deficit Neuropathy of both feet Nocturia Nocturia Osteoarthritis Pacemaker (~2013) Paroxysmal A-fib 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 RBBB Renal insufficiency Sick sinus syndrome Sleep apnea (~2012) Spinal stenosis in cervical region Spinal stenosis of lumbar region Thyroid disease TIA (transient ischemic attack) Urinary retention Physical Therapy Inpatient Evaluation/Re-Eval M1 PT/OT-IP Prior Functional Status Start: 10/25/21 09:04 Freq: NEEDED Status: Active Protocol: Document 10/25/21 10:25 CGR (Rec: 10/25/21 10:45 CGR [id number]) Medical Review Prior Functional Status Medical History Reviewed Yes Communication Pt is an effective verbal communicator but is [place] and does not wear his hearing aides. Mobility and Gait Pt was MOD I at baseline. Pt uses a 4ww for mobilization around the house and short distances but used the transport chair with his spouses assist for longer distances. Activities of Daily Living and IADL's Pt needs assist with dressing, showering (both sponge bath and showers), and all IADLs. Pt is able to do simple ADLs and shaves himself most of the time. Pt's spouse takes care of driving, cleaning, cooking, etc. Social History Household Members spouse Living Arrangements Apartment/Condo Number of Floors (Floors) One Floor Number of Stairs To Enter/Railing? No stairs Home Environment Standard Height Toilet,Walk in Shower Home Equipment Four Wheel Walker,Manual Wheelchair,Raised Toilet Seat w/Armrests,Shower Seat without Backrest,Hand Held Shower, Grab Bars Near Toilet,Grab Bars In Shower Employment Status Retired Additional Social History Comment Pt has a transport chair as his manual w/c. Pt uses a gait belt attached to a grab bar in front of his toilet for assist with toilet transfers ( this set up was suggested by the home health provider and assured the spouse that the bar was a grab bar and not just a towel bar). M1 PT/OT-IP Prior Functional Status Start: 10/25/21 10:25 Freq: NEEDED Status: Active Protocol: Document 10/25/21 10:25 CGR (Rec: 10/25/21 10:45 CGR [id number]) Medical Review Prior Functional Status Medical History Reviewed Yes Communication Pt is an effective verbal communicator but is [place] and does not wear his hearing aides. Mobility and Gait Pt was MOD I at baseline. Pt uses a 4ww for mobilization around the house and short distances but used the transport chair with his spouses assist for longer distances. Activities of Daily Living and IADL's Pt needs assist with dressing, showering (both sponge bath and showers), and all IADLs. Pt is able to do simple ADLs and shaves himself most of the time. Pt's spouse takes care of driving, cleaning, cooking, etc. Social History Household Members spouse Living Arrangements Apartment/Condo Number of Floors (Floors) One Floor Number of Stairs To Enter/Railing? No stairs Home Environment Standard Height Toilet,Walk in Shower Home Equipment Four Wheel Walker,Manual Wheelchair,Raised Toilet Seat w/Armrests,Shower Seat without Backrest,Hand Held Shower, Grab Bars Near Toilet,Grab Bars In Shower Employment Status Retired Additional Social History Comment Pt has a transport chair as his manual w/c. Pt uses a gait belt attached to a grab bar in front of his toilet for assist with toilet transfers ( this set up was suggested by the home health provider and assured the spouse that the bar was a grab bar and not just a towel bar). M2 PT-IP Current Condition Start: 10/25/21 09:04 Freq: NEEDED Status: Active Protocol: Document 10/25/21 10:14 AW (Rec: 10/25/21 12:56 AW [id number]) Physical Therapy Current Condition Current Condition Evaluation Date 10/25/21 Treatment Diagnosis R proximal femur fx s/p ORIF; difficulty in walking Onset Date 10/23/21 M3 PT-IP Subjective Start: 10/25/21 09:04 Freq: NEEDED Status: Active Protocol: Document 10/25/21 10:14 AW (Rec: 10/25/21 12:56 AW [id number]) Subjective Physical Therapy Visit Type Type Initial Evaluation Visit Start Time 09:43 Visit Stop Time 10:43 Total Visit Minutes 31 Notes co-tx with OT Number of FLAT CUTTER Visits 0 Physical Therapy Visit Comments Patient Comments Pt is willing to participate with therapy. Therapy Pain Assessment Pain When Pain Assessed During Mobility Pain Present Pain Present Pain Reported Location Right Hip Intensity 7 Scale Used Numeric (0 - 10) Pain Behaviors Facial Grimacing,Guarding, Restlessness,Wincing Pain Management Techniques Modification of Treatment,Re- positioning,Timing of Activity with Medications M4 PT-IP Mobility and Gait Start: 10/25/21 09:04 Freq: NEEDED Status: Active Protocol: Document 10/25/21 10:14 AW (Rec: 10/25/21 12:56 AW [id number]) PT-Bed Mobility Assessment Supine to Sit Supine to Sit Maximum Assistance,2 Person Assistance,Head of Bed Elevated,Bedrails Sit to Supine Sit to Supine Maximum Assistance,2 Person Assistance Scooting Scooting to Edge of Bed Maximum Assistance Scooting Up and Down in Bed Dependent PT-Transfer Assessment Sit to and From Stand Sit to and from Stand Maximum Assistance,2 Person Assistance,Use of Upper Extremities Equipment Transfer Assistive Device Gait Belt,Front Wheeled Walker Orthotic/Prosthetic Devices or Brace: No Comments Mobility Comments Pt was lying in bed as PT and OT arrived. BP 128/76 HR 80. He agreed to get up and needed max A x 2 to sit up on right side of bed as he would at home. Used bed features including slight elevation for HOB and bed rails. Pt called out in pain during transition to sitting. Scooting to EOB required max A and pt's stated bed at home is slightly taller than hospital bed. OT raised the bed and pt scooted forward again. He stood max A x 2 but could not attain full extension. PT provided stabilization for the left foot and tactile cues for left knee extension. Pt was able to bear weight only minimally on the RLE. He maintained standing max A x 2 ~10 seconds and needed to sit. Room was rearranged with chair close to bed for stand pivot to the chair. Pt stood again max A x 2 but could not maintain standing and needed to sit. Upon sitting, pt became limp and eyes fluttered but he did respond to verbal stimulation. PT and OT provided total assist for return to supine. BP 125/58 HR 87. PT stayed with pt as OT notified RN. RN and PT assisted pt to reposition on the bed and pt was left with RN attending. Gait Assessment Comments Gait Comments Unable to progress to gait this visit. Stair Climbing Assessment Comments Stair Climbing Comments Not assessed. No stairs at home. PT-Balance Assessment Sitting Balance and Reactions Static Sitting Balance Ability Fair Dynamic Sitting Balance Ability Fair Standing Balance and Reactions Static Standing Balance Ability Poor Dynamic Standing Balance Ability Poor Device Used FWW M5 PT-IP Objective Assessments Start: 10/25/21 09:04 Freq: NEEDED Status: Active Protocol: Document 10/25/21 10:14 AW (Rec: 10/25/21 12:56 AW [id number]) Orientation Orientation/Cognition Level of Alertness Alert Orientation Name,Date,Place,Situation Safety Awareness Understands Safety Issues Gross Range of Motion Lower Extremity ROM Assessment Within Functional Limits Strength Lower Extremity Strength Assessment Bilaterally Impaired Hip R 3-/5; L 4-/5 Knee R 4-/5; L 4/5 Ankle B 4+/5 Comments Strength Comments Tested in supine Coordination Assessment Gross Coordination Gross Coordination WNL Sensation Assessment Sensation Gross Sensation WNL Muscle Tone Muscle Tone WNL Yes M6 PT-IP Treatment Start: 10/25/21 09:04 Freq: NEEDED Status: Active Protocol: Document 10/25/21 10:14 AW (Rec: 10/25/21 12:56 AW [id number]) Physical Therapy Treatment Education Education Provided Weight Bearing Status,Post-Op Packet,Safety M7 PT-IP Assessment and Plan Start: 10/25/21 09:04 Freq: NEEDED Status: Active Protocol: Document 10/25/21 10:14 AW (Rec: 10/25/21 12:56 AW [id number]) PT Summary Assessment and Plan Potential Rehabilitation Potential Good Status of Condition at Evaluation Evolving Summary Impairments Pain,Strength,Balance, Cognition,Bed Mobility, Transfers,Gait Assessment Summary Wilfred is an 86 yo man with history of CVA and memory impairment who was seen for PT evaluation after undergoing ORIF for R proximal femur fracture sustained in a fall. He lives in a detention community at [facility]. He ambulates short distances with a 4WW and uses a transport chair pushed by his for longer distances at baseline. Pt's spouse assists with ADL's but states he is independent with grooming. Pt required max assist x 2 for bed mobility and attempts at sit to stand during evaluation. He was limited by what appeared to be a vasovagal episode and was assisted back to supine; RN notified. Pt will require SNF rehab to improve strength and mobility independence. Goals Bed Mobility Goal Contact Guard Assistance Transfer Goal Minimal Assistance,Front Wheeled Walker Gait Goal Minimal Assistance,Front Wheel Walker Gait Distance 50 Days to Meet Goals 10 Frequency of Treatment Frequency Of Treatment Twice a Day Treatment Plan Physical Therapy Treatment Plan Bed Mobility Training,Transfer Training,Gait Training, Therapeutic Exercise,Balance Retraining,Post Op Education, Discharge Planning,Hot or Cold Pack,Neuromuscular Re-ed Other Recommendations and Next Treatment monitor BP; sit to stand; Focus stand pivot transfer with FWW Weight Bearing Status Weight Bearing Status Weight Bear as Tolerated Allowed Weight Bearing Amount (enter % WBAT RLE or #) (%) Recommendations To Nursing Amount of Assist Needed PT/OT Assist Only Discharge Recommendations PT Discharge Recommendations SNF Rehab Transportation Needs at Discharge Wheelchair/Cabulance,Stretcher /Ambulance
--- NOTE | 2021-10-25 10:14 | OT.IP.EVAL ---
Current Diagnoses Acute posthemorrhagic anemia (10/23/21) Fracture of unspecified part of neck of right femur, initial encounter for closed fracture (10/23/21) Surgery Performed Operation Date: 10/24/21 13:30 Actual Procedures p ORIF Hip/Intramedullary Hip Screw(Right) - Leslie Veras MD Past Medical History (Last Reviewed 10/25/21 @ 07:43 by Elyse Ochoa PA-C) Anxiety Arthritis CAD (coronary artery disease) DDD (degenerative disc disease), cervical Depression Diabetes Dyslipidemia Dysuria Elevated serum homocysteine level H/O laminectomy H/O shoulder surgery H/O thumb surgery Heart attack History of angina History of appendectomy History of bladder surgery History of cardiac cath (~2012) History of cholecystectomy (~2012) History of CVA (cerebrovascular accident) History of cystoscopy History of dizziness History of esophageal reflux History of fatigue History of fusion of cervical spine History of hematuria History of lumbar fusion History of tonsillectomy History of vasectomy Impotence Lumbosacral radiculopathy at L5 Memory deficit Neuropathy of both feet Nocturia Nocturia Osteoarthritis Pacemaker (~2013) Paroxysmal A-fib 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 RBBB Renal insufficiency S/P drug eluting coronary stent placement Sick sinus syndrome Sleep apnea (~2012) Spinal stenosis in cervical region Spinal stenosis of lumbar region Status post right foot surgery Thyroid disease TIA (transient ischemic attack) Urinary retention Surgical History (Last Reviewed 10/25/21 @ 07:43 by Elyse Ochoa PA-C) H/O laminectomy H/O shoulder surgery H/O thumb surgery History of appendectomy History of bladder surgery History of cardiac cath (~2012) History of cholecystectomy (~2012) History of cystoscopy History of fusion of cervical spine History of lumbar fusion History of tonsillectomy History of vasectomy S/P drug eluting coronary stent placement Status post right foot surgery Occupational Therapy Inpatient Evaluation/Re-Eval M1 PT/OT-IP Prior Functional Status Start: 10/25/21 09:04 Freq: NEEDED Status: Active Protocol: Document 10/25/21 10:25 CGR (Rec: 10/25/21 10:45 CGR [id number]) Medical Review Prior Functional Status Medical History Reviewed Yes Communication Pt is an effective verbal communicator but is [place] and does not wear his hearing aides. Mobility and Gait Pt was MOD I at baseline. Pt uses a 4ww for mobilization around the house and short distances but used the transport chair with his spouses assist for longer distances. Activities of Daily Living and IADL's Pt needs assist with dressing, showering (both sponge bath and showers), and all IADLs. Pt is able to do simple ADLs and shaves himself most of the time. Pt's spouse takes care of driving, cleaning, cooking, etc. Social History Household Members spouse Living Arrangements Apartment/Condo Number of Floors (Floors) One Floor Number of Stairs To Enter/Railing? No stairs Home Environment Standard Height Toilet,Walk in Shower Home Equipment Four Wheel Walker,Manual Wheelchair,Raised Toilet Seat w/Armrests,Shower Seat without Backrest,Hand Held Shower, Grab Bars Near Toilet,Grab Bars In Shower Employment Status Retired Additional Social History Comment Pt has a transport chair as his manual w/c. Pt uses a gait belt attached to a grab bar in front of his toilet for assist with toilet transfers ( this set up was suggested by the home health provider and assured the spouse that the bar was a grab bar and not just a towel bar). M1 PT/OT-IP Prior Functional Status Start: 10/25/21 10:25 Freq: NEEDED Status: Active Protocol: Document 10/25/21 10:25 CGR (Rec: 10/25/21 10:45 CGR [id number]) Medical Review Prior Functional Status Medical History Reviewed Yes Communication Pt is an effective verbal communicator but is [place] and does not wear his hearing aides. Mobility and Gait Pt was MOD I at baseline. Pt uses a 4ww for mobilization around the house and short distances but used the transport chair with his spouses assist for longer distances. Activities of Daily Living and IADL's Pt needs assist with dressing, showering (both sponge bath and showers), and all IADLs. Pt is able to do simple ADLs and shaves himself most of the time. Pt's spouse takes care of driving, cleaning, cooking, etc. Social History Household Members spouse Living Arrangements Apartment/Condo Number of Floors (Floors) One Floor Number of Stairs To Enter/Railing? No stairs Home Environment Standard Height Toilet,Walk in Shower Home Equipment Four Wheel Walker,Manual Wheelchair,Raised Toilet Seat w/Armrests,Shower Seat without Backrest,Hand Held Shower, Grab Bars Near Toilet,Grab Bars In Shower Employment Status Retired Additional Social History Comment Pt has a transport chair as his manual w/c. Pt uses a gait belt attached to a grab bar in front of his toilet for assist with toilet transfers ( this set up was suggested by the home health provider and assured the spouse that the bar was a grab bar and not just a towel bar). M2 OT-IP Current Condition Start: 10/25/21 10:25 Freq: Status: Active Protocol: Document 10/25/21 10:25 CGR (Rec: 10/25/21 10:45 CGR [id number]) Occupational Therapy Current Condition Current Condition Evaluation Date 10/25/21 Treatment Diagnosis fall now s/p 2/6 R ORIF IM nailing Diagnosis Onset Date 10/23/21 Weight Bearing Status Weight Bearing Status Weight Bear as Tolerated M3 OT- IP Subjective and Pain Start: 10/25/21 10:25 Freq: Status: Active Protocol: Document 10/25/21 10:25 CGR (Rec: 10/25/21 10:45 CGR [id number]) OT- Subjective Occupational Therapy Visit Type Type Initial Evaluation Visit Start Time 09:43 Visit Stop Time 10:14 Total Visit Minutes 31 Notes Co-treat with P.T. OT Pain Assessment Pain When Pain Assessed During Mobility Pain Present Pain Present Pain Reported Location Right Hip Intensity 7 Scale Used Numeric (0 - 10) Management Techniques Modification of Treatment,Re- positioning M4 OT- IP ADL's Start: 10/25/21 10:25 Freq: Status: Active Protocol: Document 10/25/21 10:25 CGR (Rec: 10/25/21 10:45 CGR [id number]) OT [id number] Comments OT Self-Feeding Comments Not meal time OT ADL-Grooming Comments OT Grooming Comments Not performed OT ADL-Oral Care Comments Oral Care Comments Not performed OT ADL-Dressing General Eval Lower Body Dressing Ability Total Assistance Areas Needing Assistance Socks OT ADL-Toileting General Evaluation Toileting Ability Total Assistance Comments OT Toileting Comments Adams OT ADL-Bathing Comments OT Bathing Comments Not performed M5 OT- IP IADL's Start: 10/25/21 10:25 Freq: Status: Active Protocol: Document 10/25/21 10:25 CGR (Rec: 10/25/21 10:45 CGR [id number]) OT-Instrumental Activities of Daily Living Deficits IADL Deficits Identified Deficits Home Safety Awareness Awareness of Need for Assistance at Home Good Awareness Ability to Problem Solve Emergency Unable to Problem Solve Situations Medication Management Medication Management Caregiver Administers Money Management Money Management Caregiver Provides Assistance Meal Preparation Meal Preparation Caregiver Provides Assist Medical Authorization Specialist Medical Authorization Specialist Caregiver Provides Assist Driving Driving Comments Pt does not drive M6 OT- IP Functional Cognition Start: 10/25/21 10:25 Freq: Status: Active Protocol: Document 10/25/21 10:25 CGR (Rec: 10/25/21 10:45 CGR [id number]) Cognitive Factors Limiting Selfcare Function Cognitive Ability Level of Alertness Alert Patient Orientation Name,Age,Birthday,Month,Date, Day of Week,Place,Situation Attention Span Ability Capable of Focused Attention, Capable of Sustained Attention Ability to Follow Commands Able to Follow One Step Commands with Increased Time, Able to Follow One Step Commands with Repetition Cognitive Comments Cognitive Assessment Comments Per chart, pt with memory deficits. OT- Vision and Hearing OT- Hearing Assessment OT- Hearing Assessment Hearing Impaired OT- Vision Assessment Visual Attentiveness Impaired Occular Pursuits WFL Visual Convergence WFL Vision Assessment Comments Pt needed extra time and attempts to perform occular pursuits M7 OT- IP Mobility and Balance Start: 10/25/21 10:25 Freq: Status: Active Protocol: Document 10/25/21 10:25 CGR (Rec: 10/25/21 10:45 CGR [id number]) OT- Bed Mobility Assessment Supine to Sit Supine to Sit Assist Maximum Assistance,2 Person Assistance Sit to Supine Sit to Supine Assist Total Assistance,2 Person Assistance Scooting Scooting to Edge of Bed Maximum Assistance,2 Person Assistance OT-Transfer Assessment Sit to and From Stand Sit to and from Stand Maximum Assistance,2 Person Assistance Technique Transfer Destination Bed Devices Transfer Assistive Devices Gait Belt,Front Wheeled Walker Comments Mobility Comments Pt needed assist for sup to sit max x 2 but good static sitting balance EOB. Pt stood then returned to sitting and stood a second time with movement of the R foot forward . Pt then stated he needed to return to sitting and sat EOB. Pt then became less responsive with generalized weakness and appeared pale but without LOC. 2 person total assist for sit to sup and nursing notified. BP upon supine 125/58. Pt left with nursing once settled in bed. OT- Gait Assessment Comments Gait Ability Comments not assessed OT- Balance Assessment Sitting Balance and Reactions Static Sitting Balance Ability Good M8 OT- IP Objective Assessments Start: 10/25/21 10:25 Freq: Status: Active Protocol: Document 10/25/21 10:25 CGR (Rec: 10/25/21 10:45 CGR [id number]) OT Gross Range of Motion Upper Extremity Range of Motion Assessment Within Functional Limits OT Strength Upper Extremity Strength Assessment Within Functional Limits Comments Strength Comments 4+/5 OT- Coordination Assessment Upper Extremity Finger to Nose Test Within Functional Limits Finger Tapping Test Within Functional Limits Comments Coordination Comments Of note, pt is missing the tip of his L pointer finger and had his R thumb re attached both after seperate accidents with power saws. OT-Muscle Tone Assessment Muscle Tone WNL Yes OT Sensation Assessment Edema Edema Present Edema Comments R thigh M9 OT- IP Assessment and Plan Start: 10/25/21 10:25 Freq: Status: Active Protocol: Document 10/25/21 10:25 CGR (Rec: 10/25/21 10:45 CGR [id number]) OT Summary Assessment and Plan Potential Rehabilitation Potential Good Analytic Complexity at Evaluation Moderate Summary OT Impairments Pain,Balance,Functional Cognition,Functional Mobility, Grooming,Dressing,Toileting, Bathing,Toilet Transfers, Shower Transfers,Activity Tolerance Progress Towards Goals Slow Progress due to Medical Issues,Slow Progress due to Activity Tolerance,Slow Progress due to Cognition Assessment Summary Pt presents as a moderate complexity evaluation s/p admit for R hip fx s/p fall. Pt underwent 10/24/21 ORIF and IM nailing of the R hip. Pt is WBAT at this time and performed 2 sit to stands with max x 2 and what appeared to be a vasovagal response with decreased arousal and generalized weakness requiring total x2 assist back to supine. Nursing notified and pt made comfortable in the bed . Goals Grooming Goal Independent Dressing Goal Minimal Assistance Toileting Goal Independent Bathing Goal Minimal Assistance Toilet Transfer Goal Independent Shower Transfer Goal Minimal Assistance Days to Meet Goals 30 Frequency of Treatment Frequency Of Treatment Once a Day Treatment Plan OT Treatment Plan ADL Training,Functional Cognition Training,Functional Mobility,Patient/Family Education,Discharge Planning Other Treatment Recommendations and Next ADLs seated EOB at tolerated Treatment Focus Discharge Recommendations OT Discharge Recommendations SNF Rehab Transportation Needs at Discharge Wheelchair/Cabulance,Stretcher /Ambulance
--- NOTE | 2021-10-25 10:48 | PC.NURSE ---
This nurse was summoned to pt's room from another pt's room by OT after pt nearly passed out during mobilization. When this nurse arrived in the room, pt was supine in the bed, A&Ox4, c/o 7/10 R hip pain, VSS (see chart). Dr. Howard informed, IV fluids increased and BP/HR parameters added to metoprolol order. PT to return later in the day to attempt mobilization again, OT will come back tomorrow. Pt left resting comfortably in bed with at bedside.
[2021-10-25 12:03] LABS: Magnesium 1.7 mg/dL (1.6-2.3)
[2021-10-25] MEDS: ONDANSETRON 4 MG/2 ML INJ IV (12:07)
[2021-10-25] MEDS: SODIUM CHLORIDE 0.9% 1,000 ML 100 ML IV ×2 (12:08→18:44)
--- NOTE | 2021-10-25 12:25 | CM.DANOTE ---
DCP Assessment: patient is a 86 yr old male who fell an had a right hip fracture had a hip surgical repair preformed by Dr Veras. CM met with patient and his Gunnar at the bedside and explained role. patient was A&O x2 during Cm meeting. Patient has a history of dementia and is cared for at home by his spouse. Patient does ambulate around his home with a 4WW and has a wheel chair for when he becomes fatigued. patient also has a shower chair and his helps with bathing and house chores. Patients gunnar does not want the patient to go to SNF due to his cognition issues and is concerned with going to a new environment he will not be able to cope well in SNF. [facility] CM sent clinicals to Mari at [facility] to review for possible HACH program. F2F needs to be signed and is attached to face sheet in CM office. I: medicare and commercial insurance Plan: DC home with and [facility] vs [facility] HACH program. Need F2F signed. Mari at [facility] is reviewing for possible admission. Monse Kiran RNbusiness law instructor Discharge Planning/Care Management Discharge Assessment Start: 10/25/21 12:00 Freq: Status: Active Protocol: Document 10/25/21 12:00 HS (Rec: 10/25/21 12:24 HS [id number]) Discharge Planning Assessment Assigned [employer] Rep Mones Kiran RNmanager office services DPOA/Assigned Designee Name Gunnar Kasper - Contact Information [phone] Advance Directives? Yes Advance Directives on File No History Provided By Patient,Significant Other, Medical Record Has Patient been admitted in last 30 No days? Prior Living Arrangements Apartment/Condo Comment live at [facility] in ground level apartment Household Members spouse Type of transporation used prior to Relies on Others admit Independent with ADL's No: helps with bathing, meals, chores and transfers Is patient alert and oriented? No: A&O x2 Needs Assistance With Bathing,Eating,Grooming,Meal Prep,Managing Medications,Home Chores / Shopping Caregiver for Another No DME Already Rented / Owned Wheelchair,FWW / Walker Patient/Family Preference Home with Home Health Comment wants home with [facility] Hach program Comment Will see P.T. recommendations Discharge Plan Home with Home Health Transportation Arrangement Spouse Referrals Initiated Home Health Additional Comment Will have to see how he does with P.T. If patient plan is home with home health No: F2F ready needs MD : Has signed face to face form been signature completed? Medicare Choice List Provided Yes SNF/HH Preference [facility] H[facility] program or [facility] Whiteboard Updated in Patient Room with Yes name and ext. # of Biopharmaceutical Rep Review Status In Process Next Review Type Continued Stay Review
--- NOTE | 2021-10-25 13:33 | PT.IPTN ---
Current Diagnoses Acute posthemorrhagic anemia (10/23/21) Fracture of unspecified part of neck of right femur, initial encounter for closed fracture (10/23/21) Surgery Performed Operation Date: 10/24/21 13:30 Actual Procedures p ORIF Hip/Intramedullary Hip Screw(Right) - Leslie Veras MD Physical Therapy Treatment Note M2 PT-IP Current Condition Start: 10/25/21 09:04 Freq: NEEDED Status: Active Protocol: Document 10/25/21 10:14 AW (Rec: 10/25/21 12:56 AW [id number]) Physical Therapy Current Condition Current Condition Evaluation Date 10/25/21 Treatment Diagnosis R proximal femur fx s/p ORIF; difficulty in walking Onset Date 10/23/21 M3 PT-IP Subjective Start: 10/25/21 09:04 Freq: NEEDED Status: Active Protocol: Document 10/25/21 13:10 KS (Rec: 10/25/21 13:49 KS [id number]) Subjective Physical Therapy Visit Type Type Treatment Note Visit Start Time 13:10 Visit Stop Time 13:33 Total Visit Minutes 23 Notes Pts present during treatment. Number of NATURAL GAS SHOTHOLE DRILLER Visits 1 Physical Therapy Visit Comments Patient Comments Pt is willing to participate with therapy. Therapy Pain Assessment Pain When Pain Assessed During Mobility Pain Present Pain Present Pain Reported Location Right Hip Scale Used not quantified Pain Behaviors Facial Grimacing,Guarding, Restlessness,Wincing Pain Management Techniques Modification of Treatment,Re- positioning,Timing of Activity with Medications M4 PT-IP Mobility and Gait Start: 10/25/21 09:04 Freq: NEEDED Status: Active Protocol: Document 10/25/21 13:10 KS (Rec: 10/25/21 13:49 KS [id number]) PT-Bed Mobility Assessment Supine to Sit Supine to Sit Maximum Assistance,1 Person Assistance,Head of Bed Elevated Sit to Supine Sit to Supine Maximum Assistance,1 Person Assistance Scooting Scooting to Edge of Bed Maximum Assistance Scooting Up and Down in Bed Dependent PT-Transfer Assessment Comments Mobility Comments Pt in bed upon arrival from therapy and agreeable to mobility. Max A w/ max cues and HOB highly elevated for sup<>sit and scooting EOB. Once sitting EOB, pt reported dizziness and BP 94/61. Pt able to sit EOB ~3 min, but no change in dizziness and unable to stand due to dizziness and low BP. Max A for sit<>sup and Max A x2 for scooting up in bed. Pt then performed 1x10 bilateral ankle pumps, quad sets, and glute sets to promote blood flow and strengthening, however had difficulty staying awake during exercise. BP: 129/54 in supine and pt left in bed w/ alarm on, in room, and all needs in reach. Gait Assessment Comments Gait Comments Unable to progress to gait this visit. Stair Climbing Assessment Comments Stair Climbing Comments Not assessed. No stairs at home. PT-Balance Assessment Sitting Balance and Reactions Static Sitting Balance Ability Fair Dynamic Sitting Balance Ability Fair M5 PT-IP Objective Assessments Start: 10/25/21 09:04 Freq: NEEDED Status: Active Protocol: Document 10/25/21 10:14 AW (Rec: 10/25/21 12:56 AW [id number]) Orientation Orientation/Cognition Level of Alertness Alert Orientation Name,Date,Place,Situation Safety Awareness Understands Safety Issues Gross Range of Motion Lower Extremity ROM Assessment Within Functional Limits Strength Lower Extremity Strength Assessment Bilaterally Impaired Hip R 3-/5; L 4-/5 Knee R 4-/5; L 4/5 Ankle B 4+/5 Comments Strength Comments Tested in supine Coordination Assessment Gross Coordination Gross Coordination WNL Sensation Assessment Sensation Gross Sensation WNL Muscle Tone Muscle Tone WNL Yes M6 PT-IP Treatment Start: 10/25/21 09:04 Freq: NEEDED Status: Active Protocol: Document 10/25/21 13:10 KS (Rec: 10/25/21 13:49 KS [id number]) Physical Therapy Treatment Education Education Provided Weight Bearing Status,Post-Op Packet,Safety M7 PT-IP Assessment and Plan Start: 10/25/21 09:04 Freq: NEEDED Status: Active Protocol: Document 10/25/21 13:10 KS (Rec: 10/25/21 13:49 KS [id number]) PT Summary Assessment and Plan Potential Rehabilitation Potential Good Status of Condition at Evaluation Evolving Summary Impairments Pain,Strength,Balance, Cognition,Bed Mobility, Transfers,Gait Assessment Summary Pt limited in mobility this PM by dizziness and low BP. Max A for sup<>sit and Max A x2 for scooting up in bed. Pt w/ difficulty completing LE exercises secondary to weakness and fatigue. Will continue to assess, but at this time, pt may require SNF to improve strength and functional mobility independence. Goals Bed Mobility Goal Contact Guard Assistance Transfer Goal Minimal Assistance,Front Wheeled Walker Gait Goal Minimal Assistance,Front Wheel Walker Gait Distance 50 Days to Meet Goals 10 Frequency of Treatment Frequency Of Treatment Twice a Day Treatment Plan Physical Therapy Treatment Plan Bed Mobility Training,Transfer Training,Gait Training, Therapeutic Exercise,Balance Retraining,Post Op Education, Discharge Planning,Hot or Cold Pack,Neuromuscular Re-ed Other Recommendations and Next Treatment monitor BP; sit to stand; Focus stand pivot transfer with FWW Weight Bearing Status Weight Bearing Status Weight Bear as Tolerated Allowed Weight Bearing Amount (enter % WBAT RLE or #) (%) Recommendations To Nursing Amount of Assist Needed PT/OT Assist Only Discharge Recommendations PT Discharge Recommendations SNF Rehab Transportation Needs at Discharge Wheelchair/Cabulance,Stretcher /Ambulance
[2021-10-25] MEDS: METFORMIN HCL 500 MG TABLET PO (16:22)
[2021-10-25] MEDS: DULOXETINE 30 MG CAPSULE PO (21:22)
[2021-10-26] VITALS (14 sets, daily range): BP systolic 100–137; BP diastolic 48–72; PULSE 68–94; RESP 16–24; TEMP 36.2–37.2; O2SAT 95–99
[2021-10-26] MEDS: MORPHINE 2 MG/ML INJ IV ×2 (02:22→06:41)
[2021-10-26] MEDS: SODIUM CHLORIDE 0.9% FLUSH 10 ML IV ×3 (02:29→20:17)
[2021-10-26] MEDS: OXYCODONE IR 5 MG TABLET PO ×3 (04:49→20:14)
[2021-10-26 05:49] LABS: Alanine Aminotransferase 23 IU/L (<50); Albumin Globulin Ratio 1.4 (1.0-2.8); Alkaline Phosphatase 51 U/L (38-126); Aspartate Aminotransferase 39 IU/L (17-59); BUN Creatinine Ratio 16.7 (6-22); Bilirubin Total 0.7 mg/dL (0.2-1.3); Blood Urea Nitrogen 17 mg/dL (9-20); Calcium 8.4 mg/dL (8.4-10.2); Carbon Dioxide 25 mmol/L (22-32); Chloride 102 mmol/L (98-107); Estimated Glomerular Filt Rate > 60.0 mL/min (>60); Globulin 2.2 g/dL (1.7-4.1); Glucose 128 mg/dL (80-110); HEMOLYSIS 36 (0-50); Potassium 4.5 mmol/L (3.4-5.1); Sodium 132 mmol/L (137-145); Total Protein 5.2 g/dL (6.3-8.2)
[2021-10-26 06:14] LABS: Add Manual Diff / Slide Review NO; Basophils Absolute Auto 0 /uL (0-100); Basophils Percent Auto 0.5 % (0-2); Eosinophils Absolute Auto 100 /uL (0-450); Eosinophils Percent Auto 1.1 % (2-4); Hemoglobin 7.6 g/dL (13.5-17.5); Lymphocytes Absolute Auto 1300 /uL (1100-4500); Lymphocytes Percent Auto 23.8 % (25-40); Mean Corpuscular HGB Conc 33.9 % (30-36); Mean Corpuscular Hemoglobin 29.1 PG (26-34); Mean Corpuscular Volume 85.9 fL (80-100); Monocytes Absolute Auto 900 /uL (0-900); Monocytes Percent Auto 15.7 % (3-14); Neutrophils Absolute Auto 3200 /uL (1500-7000); Neutrophils Percent Auto 58.9 % (50-75); Platelet Count 185 X10^3/uL (150-400); Red Blood Cell Count 2.61 X10^6/uL (4.5-5.9); Red Cell Distribution Width 16.4 % (11.6-14.8); White Blood Cell Count 5.5 X10^3/uL (4.5-11.0)
[2021-10-26 06:21] LABS: Hematocrit 22.5 % (41-53)
[2021-10-26] MEDS: LEVOTHYROXINE 75 MCG TABLET PO (06:41)
--- NOTE | 2021-10-26 08:23 | P.PN_ITS ---
Subjective Subjective Date Patient Seen: 10/26/21 Time Patient Seen: 08:29 Interval history: Patient had difficult night with trouble sleeping. He is not hungry today. He has not had a bowel movement in several days. He denies any shortness of breath or chest pain. He does feel slightly puffy. Blood sugars continue to be high. He was dizzy with PT but had normal vital signs to. IV fluids were increased to 125 an hour Exam Vital Signs (past 8 hours): - 10/26/21 04:00 Temperature 97.8 F Pulse Rate 94 H Respiratory Rate 18 Blood Pressure 106/53 L Pulse Oximetry 95 Oxygen Delivery Method Room Air Oxygen Flow Rate 0 Narrative Exam Narrative: Afebrile, vital signs are stable Color appears better. Patient is more alert today. He recognizes me. HEENT unremarkable. No facial asymmetry Neck is supple without adenopathy Chest: Clear to auscultation without wheezes rhonchi crackles Cor: Irregularly irregular rhythm with a well-controlled rate and distant S1-S2 Abdomen: Positive bowel sounds, soft, nontender, nondistended Extremities: Trace nonpitting edema pedal and ankle. Pulses intact Skin no rashes Objective Labs Result Diagrams: 10/26/21 05:17 10/26/21 05:17 Labs: Laboratory Results - last 24 hr 10/25/21 10/26/21 10/26/21 11:20 05:17 05:17 WBC 5.5 RBC 2.61 L Hgb 7.6 L Hct 22.5 L MCV 85.9 MCH 29.1 MCHC 33.9 RDW 16.4 H Plt Count 185 Neut % (Auto) 58.9 Lymph % (Auto) 23.8 L [place] % (Auto) 15.7 H Eos % (Auto) 1.1 L Baso % (Auto) 0.5 Neut # (Auto) 3200 Lymph # (Auto) 1300 [place] # (Auto) 900 Eos # (Auto) 100 Baso # (Auto) 0 Sodium 132 L Potassium 4.5 Chloride 102 Carbon Dioxide 25 BUN 17 Creatinine 1.02 Estimated GFR > 60.0 BUN/Creatinine Ratio 16.7 Glucose 128 H Calcium 8.4 Magnesium 1.7 Total Bilirubin 0.7 AST 39 ALT 23 Alkaline Phosphatase 51 Total Protein 5.2 L Albumin 3.0 L Globulin 2.2 Albumin/Globulin Ratio 1.4 [facility] Medical History Anxiety Arthritis CAD (coronary artery disease) DDD (degenerative disc disease), cervical Depression Diabetes Dyslipidemia Dysuria Elevated serum homocysteine level Heart attack History of angina History of CVA (cerebrovascular accident) History of dizziness History of esophageal reflux History of fatigue History of hematuria Impotence Lumbosacral radiculopathy at L5 Memory deficit Neuropathy of both feet Nocturia Nocturia Osteoarthritis Pacemaker (~2013) Paroxysmal A-fib 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 RBBB Renal insufficiency Sick sinus syndrome Sleep apnea (~2012) Spinal stenosis in cervical region Spinal stenosis of lumbar region Thyroid disease TIA (transient ischemic attack) Urinary retention Surgical History H/O laminectomy H/O shoulder surgery H/O thumb surgery History of appendectomy History of bladder surgery History of cardiac cath (~2012) History of cholecystectomy (~2012) History of cystoscopy History of fusion of cervical spine History of lumbar fusion History of tonsillectomy History of vasectomy S/P drug eluting coronary stent placement Status post right foot surgery Social History marital status: details: aisha Horner, lives in [place] household members: spouse lives independently: Yes caregiver/support person: No housing: house Smoking Status: Never smoker alcohol intake: current substance use type: does not use Assessment & Plan Assessment & Plan narrative: 86-year-old male with right hip fracture, postop day 3. 35 minutes spent with patient and discussing his case with nursing as well as his via phone, reviewing chart and documentation Assessment and plan: 1. Right hip fracture Plan: Continue with PT and OT.? Will continue with SCDs and Lovenox.? Will work to get better pain control. Will give blood today and see if able to participate in PT Assessment 2.? Acute exacerbation of chronic anemia with significant lowering in H&H with worsening today likely secondary to ivf likely. No obvious source of blood loss Plan:? Will transfuse 2 units of pRBC and lasix in between and then recheck in am Assessment 3.? Atrial fibrillation with well-controlled rate Plan: Continue on amiodarone.? Continue metoprolol but hold for bradycardia or hypotension.? Continue Brilinta Assessment number 4.? Type 2 diabetes Plan:? Will continue with sliding scale insulin.? Patient started on metformin yesterday. We will go ahead and start glipizide today. Assessment 5. Hyponatremia likely related to fracture and surgical procedure and overall comorbidities Plan:? Will continue to trend.? Will workup further if worsens.? If hypotension continues will consider IV fluids Assessment 6.? Back pain.? Plan:? Patient with a long history of this but consider possible injury with fall.? Further imaging pending how he does over the day. Assessment 7.? Depression Plan:? Continue duloxetine Assessment 8. Hypomagnesemia Plan:? Magnesium stable. Continue with supplementation. Assessment 9.? Hypothyroidism Plan: Continue on levothyroxine Assessment 10. Patient will likely need skilled care facility at discharge. We will see how he progresses. Assessment 11. DVT prophylaxis Plan: Continue on Lovenox Assessment 12. GI prophylaxis Plan: Continue on proton pump inhibitor Code status is DNR/DNI Time Spent With Patient Critical Care time: I spent a total of [] minutes of critical care time on this patient's care today; this time is exclusive of procedural time.
[2021-10-26] MEDS: ENOXAPARIN 40 MG/0.4 ML SYRINGE SUBCUT (08:51)
[2021-10-26] MEDS: DOCUSATE 100 MG CAPSULE 200 MG PO ×2 (08:52→20:16)
[2021-10-26] MEDS: ACETAMINOPHEN 325 MG TABLET 975 MG PO ×3 (08:53→20:16)
[2021-10-26] MEDS: ASPIRIN EC 81 MG TABLET PO (08:53)
[2021-10-26] MEDS: PANTOPRAZOLE DR 40 MG TABLET PO ×2 (08:53→20:14)
[2021-10-26] MEDS: METFORMIN HCL 500 MG TABLET PO ×2 (09:06→17:56)
[2021-10-26] MEDS: AMIODARONE 200 MG TABLET 100 MG PO (09:06)
[2021-10-26] MEDS: METOPROLOL ER 25 MG TABLET PO (09:13)
[2021-10-26 09:51] LABS: NT-proBNP (BNP-Adult 18+) 606 pg/mL (<450)
--- NOTE | 2021-10-26 10:23 | OT.IPNOTE ---
Pt to be getting blood today therefore hold OT treatment.
--- NOTE | 2021-10-26 11:19 | PT-IP ANOTE ---
Attempted to see pt at 11:19, pt had not yet received blood transfusion. Per RN, hold until after transfusion and new results.
--- NOTE | 2021-10-26 11:43 | P.PN_ITS ---
Subjective Subjective Date Patient Seen: 10/26/21 Time Patient Seen: 11:43 Interval history: Patient's pain is been moderate to severe. Denies fever or chills. No nausea or vomiting. Patient's is at bedside and states he has been tired and sleeping quite a bit since surgery. Exam Vital Signs (past 8 hours): - 10/26/21 04:00 10/26/21 08:00 10/26/21 09:13 Temperature 97.8 F 97.9 F Pulse Rate 94 H 72 68 Respiratory Rate 18 16 Blood Pressure 106/53 L 111/55 L 104/59 L Pulse Oximetry 95 99 10/26/21 11:19 10/26/21 11:28 Temperature 97.8 F 98.7 F Pulse Rate 75 70 Respiratory Rate 22 22 Blood Pressure 106/50 L 121/58 L Pulse Oximetry 96 Oxygen Delivery Method Room Air Oxygen Flow Rate 0 Narrative Exam Narrative: 86-year-old male resting comfortably in bed in no apparent distress. Scant drainage on the hip dressings. No erythema. Motor functions intact distal right lower extremity. Sensation grossly intact to light touch distal right lower extremity. Const General: cooperative Orientation: alert Objective Labs Result Diagrams: 10/26/21 05:17 10/26/21 05:17 Labs: Laboratory Results - last 24 hr 10/25/21 10/26/21 10/26/21 11:20 05:17 05:17 WBC 5.5 RBC 2.61 L Hgb 7.6 L Hct 22.5 L MCV 85.9 MCH 29.1 MCHC 33.9 RDW 16.4 H Plt Count 185 Neut % (Auto) 58.9 Lymph % (Auto) 23.8 L [place] % (Auto) 15.7 H Eos % (Auto) 1.1 L Baso % (Auto) 0.5 Neut # (Auto) 3200 Lymph # (Auto) 1300 [place] # (Auto) 900 Eos # (Auto) 100 Baso # (Auto) 0 Sodium 132 L Potassium 4.5 Chloride 102 Carbon Dioxide 25 BUN 17 Creatinine 1.02 Estimated GFR > 60.0 BUN/Creatinine Ratio 16.7 Glucose 128 H Calcium 8.4 Magnesium 1.7 Total Bilirubin 0.7 AST 39 ALT 23 Alkaline Phosphatase 51 NT-Pro-B Natriuret Pep Total Protein 5.2 L Albumin 3.0 L Globulin 2.2 Albumin/Globulin Ratio 1.4 Blood Type Antibody Screen Crossmatch 10/26/21 10/26/21 05:56 08:50 WBC RBC Hgb Hct MCV MCH MCHC RDW Plt Count Neut % (Auto) Lymph % (Auto) [place] % (Auto) Eos % (Auto) Baso % (Auto) Neut # (Auto) Lymph # (Auto) [place] # (Auto) Eos # (Auto) Baso # (Auto) Sodium Potassium Chloride Carbon Dioxide BUN Creatinine Estimated GFR BUN/Creatinine Ratio Glucose Calcium Magnesium Total Bilirubin AST ALT Alkaline Phosphatase NT-Pro-B Natriuret Pep 606 H Total Protein Albumin Globulin Albumin/Globulin Ratio Blood Type A Positive Antibody Screen Negative Crossmatch See Detail [facility] Medical History Anxiety Arthritis CAD (coronary artery disease) DDD (degenerative disc disease), cervical Depression Diabetes Dyslipidemia Dysuria Elevated serum homocysteine level Heart attack History of angina History of CVA (cerebrovascular accident) History of dizziness History of esophageal reflux History of fatigue History of hematuria Impotence Lumbosacral radiculopathy at L5 Memory deficit Neuropathy of both feet Nocturia Nocturia Osteoarthritis Pacemaker (~2013) Paroxysmal A-fib 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 RBBB Renal insufficiency Sick sinus syndrome Sleep apnea (~2012) Spinal stenosis in cervical region Spinal stenosis of lumbar region Thyroid disease TIA (transient ischemic attack) Urinary retention Surgical History H/O laminectomy H/O shoulder surgery H/O thumb surgery History of appendectomy History of bladder surgery History of cardiac cath (~2012) History of cholecystectomy (~2012) History of cystoscopy History of fusion of cervical spine History of lumbar fusion History of tonsillectomy History of vasectomy S/P drug eluting coronary stent placement Status post right foot surgery Social History marital status: details: to Siri, lives in [place] household members: spouse lives independently: Yes caregiver/support person: No housing: house Smoking Status: Never smoker alcohol intake: current substance use type: does not use Assessment & Plan Post-op Postoperative Procedures: Procedures Operation Date: 10/24/21 13:30 Actual Procedure Side Surgeon p ORIF Hip/Intramedullary Hip Screw Right Leslie Veras MD Postoperative day: 2 Postoperative status narrative: Stable status post fixation intertrochanteric hip fracture right with intramedullary nail Acute exacerbation of chronic anemia Postoperative plan narrative: Weight-bearing as tolerated right lower extremity Mobilize with physical therapy and occupational therapy SCDs and Lovenox for DVT prophylaxis, recommend Lovenox 4 weeks for hip fractur e, can consider aspirin alone if ambulating well Follow-up with [facility] in 2 weeks, will need staple removal and repeat x-rays Dr. Howard is managing acute exacerbation chronic anemia has ordered 2 units packed red blood cells, atrial fib with well-controlled rate, type 2 diabetes, hyponatremia, back pain, depression, hypo magnesium , hypothyroidism Disposition likely will need senior care facility when medically stable per Internal Medicine
[2021-10-26] MEDS: INSULIN LISPRO 100 UNIT/ML 3ML VIAL SUBCUT ×2 (12:21→17:56)
[2021-10-26] MEDS: FUROSEMIDE 40 MG/4 ML VIAL IV (14:19)
--- NOTE | 2021-10-26 15:50 | PT-IP ANOTE ---
Hold PT today, pt inappropriate due to high level of fatigue. Received transfusion, but no new levels yet.
[2021-10-26] MEDS: MAGNESIUM HYDROXIDE 30 ML UDC PO (18:09)
--- NOTE | 2021-10-26 18:17 | PC.NURSE ---
Patient received 2 units PRBC today with IV lasix given in between units as ordered by Dr. Howard. Patient tolerated well. Patient c/o of fatigue today, and had some problems staying awake this morning while attempting to read his paper. Declined working with PT and declines attempts to get up to chair today with assistance. Patient and his agree they will attempt transfer with PT in the morning as patient wants to rest today. Dressing remains in place. Adams intact and draining clear yellow urine. Bed alarm on for safety, call light within reach.
[2021-10-26] MEDS: DULOXETINE 30 MG CAPSULE PO (20:16)
[2021-10-27] VITALS (7 sets, daily range): BP systolic 103–133; BP diastolic 45–80; PULSE 69–93; RESP 12–18; TEMP 36.1–36.7; O2SAT 97–99
[2021-10-27 05:47] LABS: Add Manual Diff / Slide Review NO; Basophils Absolute Auto 0 /uL (0-100); Basophils Percent Auto 0.7 % (0-2); Eosinophils Absolute Auto 100 /uL (0-450); Eosinophils Percent Auto 1.7 % (2-4); Hematocrit 29.3 % (41-53); Hemoglobin 9.8 g/dL (13.5-17.5); Lymphocytes Absolute Auto 1100 /uL (1100-4500); Lymphocytes Percent Auto 20.2 % (25-40); Mean Corpuscular HGB Conc 33.5 % (30-36); Mean Corpuscular Hemoglobin 29.1 PG (26-34); Mean Corpuscular Volume 86.9 fL (80-100); Monocytes Absolute Auto 700 /uL (0-900); Monocytes Percent Auto 12.5 % (3-14); Neutrophils Absolute Auto 3500 /uL (1500-7000); Neutrophils Percent Auto 64.9 % (50-75); Platelet Count 186 X10^3/uL (150-400); Red Blood Cell Count 3.37 X10^6/uL (4.5-5.9); Red Cell Distribution Width 15.9 % (11.6-14.8); White Blood Cell Count 5.4 X10^3/uL (4.5-11.0)
[2021-10-27 06:01] LABS: BUN Creatinine Ratio 15.7 (6-22); Blood Urea Nitrogen 17 mg/dL (9-20); Calcium 8.8 mg/dL (8.4-10.2); Carbon Dioxide 27 mmol/L (22-32); Chloride 100 mmol/L (98-107); Estimated Glomerular Filt Rate > 60.0 mL/min (>60); Glucose 140 mg/dL (80-110); HEMOLYSIS < 15 (0-50); Potassium 4.2 mmol/L (3.4-5.1); Sodium 130 mmol/L (137-145)
--- NOTE | 2021-10-27 08:55 | PT.IPTN ---
Current Diagnoses Acute posthemorrhagic anemia (10/23/21) Fracture of unspecified part of neck of right femur, initial encounter for closed fracture (10/23/21) Surgery Performed Operation Date: 10/24/21 13:30 Actual Procedures p ORIF Hip/Intramedullary Hip Screw(Right) - Leslie Veras MD Physical Therapy Treatment Note M2 PT-IP Current Condition Start: 10/25/21 09:04 Freq: NEEDED Status: Active Protocol: Document 10/27/21 08:37 SP (Rec: 10/27/21 09:52 SP [id number]) Physical Therapy Current Condition Current Condition Evaluation Date 10/25/21 Treatment Diagnosis R proximal femur fx s/p ORIF; difficulty in walking Onset Date 10/23/21 M3 PT-IP Subjective Start: 10/25/21 09:04 Freq: NEEDED Status: Active Protocol: Document 10/27/21 08:37 SP (Rec: 10/27/21 09:52 SP [id number]) Subjective Physical Therapy Visit Type Type Treatment Note Visit Start Time 08:37 Visit Stop Time 08:55 Total Visit Minutes 18 Notes CoTx with OT for A w/ mobiltiy . Number of IP ATTORNEY Visits 2 Physical Therapy Visit Comments Patient Comments Pt willing to work with therapy. Pt states won't be able to assist hiim but wants to go home. Patient Goals Go home. Therapy Pain Assessment Pain When Pain Assessed At Rest Pain Present Pain Present Denied Pain Location Right Hip Scale Used no quantified pain R hip with mobility Pain Behaviors Facial Grimacing,Guarding, Restlessness,Wincing Pain Management Techniques Modification of Treatment,Re- positioning M4 PT-IP Mobility and Gait Start: 10/25/21 09:04 Freq: NEEDED Status: Active Protocol: Document 10/27/21 08:37 SP (Rec: 10/27/21 09:52 SP [id number]) PT-Bed Mobility Assessment Supine to Sit Supine to Sit Minimal Assistance,1 Person Assistance,Head of Bed Elevated,Bedrails Scooting Scooting to Edge of Bed Minimal Assistance PT-Transfer Assessment Sit to and From Stand Sit to and from Stand Moderate Assistance,2 Person Assistance,Use of Upper Extremities Equipment Transfer Assistive Device Gait Belt,Front Wheeled Walker Orthotic/Prosthetic Devices or Brace: No Transfers Transfer Destination Chair Transfer Technique Stand Step Pivot Transfer Ability Level of Assist Moderate Assistance,2 Person Assistance,Use of Upper Extremities Comments Mobility Comments Instructed LE ex's: AP, heel slides, Min A RLE flexion tolerant range, 45 deg. Completed elevated 34 deg supine>sit, scoot to EOB Min Ax1, Sit>stand and SPT w/ FWW Mod A x2 with cues for upright posture and assist w/ FWW repositioning, cues reach back ModA for slow descent in to chair, able scoot back in chair self. Pt was upin chair with call light, chair alarm donned and all needs in reach. Discussed assist of 2 persons needed at this time. Pt stated not sure can help him, agreeable to IP ATTORNEY calling spouse for CGT in afternoon assess. Will assist progress in pm. Gait Assessment Comments Gait Comments SPT only w/ FWW, Mod A x2. Stair Climbing Assessment Comments Stair Climbing Comments Not assessed. No stairs at home. PT-Balance Assessment Sitting Balance and Reactions Static Sitting Balance Ability Fair Dynamic Sitting Balance Ability Fair Standing Balance and Reactions Static Standing Balance Ability Poor Dynamic Standing Balance Ability Poor Device Used FWW M5 PT-IP Objective Assessments Start: 10/25/21 09:04 Freq: NEEDED Status: Active Protocol: Document 10/25/21 10:14 AW (Rec: 10/25/21 12:56 AW [id number]) Orientation Orientation/Cognition Level of Alertness Alert Orientation Name,Date,Place,Situation Safety Awareness Understands Safety Issues Gross Range of Motion Lower Extremity ROM Assessment Within Functional Limits Strength Lower Extremity Strength Assessment Bilaterally Impaired Hip R 3-/5; L 4-/5 Knee R 4-/5; L 4/5 Ankle B 4+/5 Comments Strength Comments Tested in supine Coordination Assessment Gross Coordination Gross Coordination WNL Sensation Assessment Sensation Gross Sensation WNL Muscle Tone Muscle Tone WNL Yes M6 PT-IP Treatment Start: 10/25/21 09:04 Freq: NEEDED Status: Active Protocol: Document 10/27/21 08:37 SP (Rec: 10/27/21 09:52 SP [id number]) Physical Therapy Treatment Exercises Exercises Ankle Pumps,Heel Slides Education Education Provided Weight Bearing Status,Post-Op Packet,Safety M7 PT-IP Assessment and Plan Start: 10/25/21 09:04 Freq: NEEDED Status: Active Protocol: Document 10/27/21 08:37 SP (Rec: 02/09/22 09:52 SP [id number]) PT Summary Assessment and Plan Potential Rehabilitation Potential Good Status of Condition at Evaluation Evolving Summary Impairments Pain,Strength,Balance, Cognition,Bed Mobility, Transfers,Gait Progress Towards Goals Progressing Toward Goals,Slow Progress due to Pain,Slow Progress due to Activity Tolerance Assessment Summary Pt required Min A for bed mobility, Mod A x2 w/ FWW for STS and transfers. Unsure if spouse will be ableto assist needed at this time.IP ATTORNEY left message for spouse if can work together in afternoon for CGT , time TBD. Recommending SNF vs HHPT 10/04 Available. Will assess progress in pm. Goals Bed Mobility Goal Contact Guard Assistance Transfer Goal Minimal Assistance,Front Wheeled Walker Gait Goal Minimal Assistance,Front Wheel Walker Gait Distance 50 Days to Meet Goals 10 Frequency of Treatment Frequency Of Treatment Twice a Day Treatment Plan Physical Therapy Treatment Plan Bed Mobility Training,Transfer Training,Gait Training, Therapeutic Exercise,Balance Retraining,Post Op Education, Discharge Planning,Hot or Cold Pack,Neuromuscular Re-ed Other Recommendations and Next Treatment minitor BP, bed mob, transfers Focus w/ FWW. Progress gait if able , CGT with spouse in pm today, time TBD. Precautions Other Precautions falls, monitor BP Weight Bearing Status Weight Bearing Status Weight Bear as Tolerated Allowed Weight Bearing Amount (enter % WBAT RLE or #) (%) Recommendations To Nursing Amount of Assist Needed 2 Person Assist Discharge Recommendations PT Discharge Recommendations Home with 10/04 Assist Available,Home Health,SNF Rehab,Home vs SNF Transportation Needs at Discharge Wheelchair/Cabulance,Stretcher /Ambulance
[2021-10-27] MEDS: ACETAMINOPHEN 325 MG TABLET 975 MG PO ×3 (09:24→21:41)
[2021-10-27] MEDS: ONDANSETRON 4 MG/2 ML INJ IV (09:24)
[2021-10-27] MEDS: OXYCODONE IR 5 MG TABLET PO ×2 (09:25→17:49)
[2021-10-27] MEDS: PANTOPRAZOLE DR 40 MG TABLET PO ×2 (09:25→21:42)
[2021-10-27] MEDS: DOCUSATE 100 MG CAPSULE 200 MG PO ×2 (09:25→21:42)
[2021-10-27] MEDS: ASPIRIN EC 81 MG TABLET PO (09:25)
[2021-10-27] MEDS: METOPROLOL ER 25 MG TABLET PO ×2 (09:25→21:41)
--- NOTE | 2021-10-27 09:25 | OT.IP.TRT ---
Current Diagnoses Acute posthemorrhagic anemia (10/23/21) Fracture of unspecified part of neck of right femur, initial encounter for closed fracture (10/23/21) Surgery Performed Operation Date: 10/24/21 13:30 Actual Procedures p ORIF Hip/Intramedullary Hip Screw(Right) - Leslie Veras MD Occupational Therapy Treatment Note M2 OT-IP Current Condition Start: 10/25/21 10:25 Freq: Status: Active Protocol: Document 10/25/21 10:25 CGR (Rec: 10/25/21 10:45 CGR [id number]) Occupational Therapy Current Condition Current Condition Evaluation Date 10/25/21 Treatment Diagnosis fall now s/p 2/6 R ORIF IM nailing Diagnosis Onset Date 10/23/21 Weight Bearing Status Weight Bearing Status Weight Bear as Tolerated M3 OT- IP Subjective and Pain Start: 10/25/21 10:25 Freq: Status: Active Protocol: Document 10/27/21 11:42 [facility] (Rec: 10/27/21 11:50 [facility] [id number]) OT- Subjective Occupational Therapy Visit Type Type Treatment Note Visit Start Time 08:37 Visit Stop Time 09:25 Total Visit Minutes 23 Notes Pt seen for split treatment [id number] and [id number] as pt's present for the second part. Occupational Therapy Visit Comments Patient Comments Pt agreed to get up. Patient/Caregiver Goals Pt wants to go home. Pt's open to having pt go to skilled rehab prior to going home. OT Pain Assessment Pain When Pain Assessed During Mobility Pain Present Pain Present Pain Reported M4 OT- IP ADL's Start: 10/25/21 10:25 Freq: Status: Active Protocol: Document 10/27/21 11:42 [facility] (Rec: 10/27/21 11:50 [facility] [id number]) OT [id number] Comments OT Self-Feeding Comments NOt at meal time. OT ADL-Grooming Comments OT Grooming Comments Not performed. OT ADL-Oral Care Comments Oral Care Comments Not performed OT ADL-Dressing General Eval Lower Body Dressing Ability Total Assistance Areas Needing Assistance Socks OT ADL-Toileting General Evaluation Toileting Ability Total Assistance Comments OT Toileting Comments Adams OT ADL-Bathing Comments OT Bathing Comments Not performed M5 OT- IP IADL's Start: 10/25/21 10:25 Freq: Status: Active Protocol: Document 10/25/21 10:25 CGR (Rec: 10/25/21 10:45 CGR [id number]) OT-Instrumental Activities of Daily Living Deficits IADL Deficits Identified Deficits Home Safety Awareness Awareness of Need for Assistance at Home Good Awareness Ability to Problem Solve Emergency Unable to Problem Solve Situations Medication Management Medication Management Caregiver Administers Money Management Money Management Caregiver Provides Assistance Meal Preparation Meal Preparation Caregiver Provides Assist Roll Repairer Roll Repairer Caregiver Provides Assist Driving Driving Comments Pt does not drive M6 OT- IP Functional Cognition Start: 10/25/21 10:25 Freq: Status: Active Protocol: Document 10/27/21 11:42 [facility] (Rec: 10/27/21 11:50 [facility] [id number]) Cognitive Factors Limiting Selfcare Function Cognitive Ability Level of Alertness Alert Patient Orientation Name,Age,Birthday,Month,Date, Day of Week,Place,Situation Attention Span Ability Capable of Focused Attention, Capable of Sustained Attention Ability to Follow Commands Able to Follow One Step Commands with Increased Time, Able to Follow One Step Commands with Repetition M7 OT- IP Mobility and Balance Start: 10/25/21 10:25 Freq: Status: Active Protocol: Document 10/27/21 11:42 [facility] (Rec: 10/27/21 11:50 [facility] [id number]) OT- Bed Mobility Assessment Supine to Sit Supine to Sit Assist Minimal Assistance,Head of Bed Elevated,Bedrails OT-Transfer Assessment Sit to and From Stand Sit to and from Stand Moderate Assistance,2 Person Assistance Transfers Transfer Ability Moderate Assistance,2 Person Assistance Technique Transfer Destination Bed,Chair Devices Transfer Assistive Devices Gait Belt,Front Wheeled Walker Comments Mobility Comments With HOB up as pt states has an adjustable bed at home, pt just needing assist to help get his RLE to the edge of the bed. MODA X 2 to stand to FWW and transfer, assist to guide the FWW and assist for balance. OT- Gait Assessment Comments Gait Ability Comments Transfer only at this time. OT- Balance Assessment Sitting Balance and Reactions Static Sitting Balance Ability Good Standing Balance and Reactions Static Standing Balance Ability Poor Dynamic Standing Balance Ability Poor M8 OT- IP Objective Assessments Start: 10/25/21 10:25 Freq: Status: Active Protocol: Document 10/25/21 10:25 CGR (Rec: 10/25/21 10:45 CGR [id number]) OT Gross Range of Motion Upper Extremity Range of Motion Assessment Within Functional Limits OT Strength Upper Extremity Strength Assessment Within Functional Limits Comments Strength Comments 4+/5 OT- Coordination Assessment Upper Extremity Finger to Nose Test Within Functional Limits Finger Tapping Test Within Functional Limits Comments Coordination Comments Of note, pt is missing the tip of his L pointer finger and had his R thumb re attached both after seperate accidents with power saws. OT-Muscle Tone Assessment Muscle Tone WNL Yes OT Sensation Assessment Edema Edema Present Edema Comments R thigh M9 OT- IP Assessment and Plan Start: 10/25/21 10:25 Freq: Status: Active Protocol: Document 10/27/21 11:42 [facility] (Rec: 10/27/21 11:50 [facility] [id number]) OT Summary Assessment and Plan Potential Rehabilitation Potential Good Analytic Complexity at Evaluation Moderate Summary OT Impairments Pain,Balance,Functional Cognition,Functional Mobility, Grooming,Dressing,Toileting, Bathing,Toilet Transfers, Shower Transfers,Activity Tolerance Progress Towards Goals Progressing Toward Goals,Slow Progress due to Activity Tolerance,Slow Progress due to Cognition Assessment Summary Pt able to tolerate transfer to the recliner today and was cooperative and able to follow commands. Ideally pt's wants pt to go home , however pt still needing extensive 2 person assist for transfer needs and therefore will benefit from skilled rehab prior to going home. Pt's aware and wanting to have skilled rehab as a back up option but hoping that pt will progress more while here in the hospital so that she can take him home. Goals Grooming Goal Independent Dressing Goal Minimal Assistance Toileting Goal Independent Bathing Goal Minimal Assistance Toilet Transfer Goal Contact Guard Assistance Shower Transfer Goal Minimal Assistance Days to Meet Goals 20 Frequency of Treatment Frequency Of Treatment Once a Day Treatment Plan OT Treatment Plan ADL Training,Functional Cognition Training,Functional Mobility,Patient/Family Education,Discharge Planning Other Treatment Recommendations and Next Transfer with FWW to the [facility] [place] Treatment Focus with MODA X2. Discharge Recommendations OT Discharge Recommendations SNF Rehab Transportation Needs at Discharge Wheelchair/Cabulance
[2021-10-27] MEDS: METFORMIN HCL 500 MG TABLET PO ×2 (09:26→17:49)
[2021-10-27] MEDS: AMIODARONE 200 MG TABLET 100 MG PO (09:26)
[2021-10-27] MEDS: SODIUM CHLORIDE 0.9% FLUSH 10 ML IV ×2 (09:27→21:42)
[2021-10-27] MEDS: ENOXAPARIN 40 MG/0.4 ML SYRINGE SUBCUT (09:27)
--- NOTE | 2021-10-27 09:51 | PM.PN.1 ---
Subjective Subjective Date Patient Seen: 10/27/21 Time Patient Seen: 09:51 Interval history: Met with patient and his at bedside. Patient is much more alert today. states that he was very sleepy throughout the day yesterday. Patient with nausea this morning. This is a chronic thing that he gets at home as well and typically is treated with Zofran and his symptoms improved. He had large diuresis yesterday with 40 mg of IV Lasix. His IV fluids were stopped yesterday. He still has poor p.o. it intake. He has not had a bowel movement. He still has a catheter His breathing is better. Twelve point review of systems is negative other than above. Patient denies chest pain. Patient has received 4 doses of oxycodone in the last 24 hours. He recently received it but had not received any since last night at 8:00 p.m. Exam Vital Signs (past 8 hours): - 10/27/21 06:00 Temperature 98.1 F Pulse Rate 73 Respiratory Rate 18 Blood Pressure 126/65 Pulse Oximetry 98 Oxygen Delivery Method Room Air Oxygen Flow Rate 0 Narrative Exam Narrative: Afebrile vital signs are stable HEENT unremarkable. He has pale but this is the same. Neck: Supple Chest: Clear to auscultation bilaterally with decreased breath sounds bibasilar Cor: Irregular regular rhythm with distant S1-S2 with well controlled rate Abdomen: Positive bowel sounds, soft, nontender, nondistended, no hepatosplenomegaly Extremities: No edema pulses intact extremities warm Objective Labs Result Diagrams: 10/27/21 05:27 10/27/21 05:27 Labs: Laboratory Results - last 24 hr 10/26/21 10/26/21 10/27/21 05:56 08:50 05:27 WBC 5.4 RBC 3.37 L Hgb 9.8 L Hct 29.3 L MCV 86.9 MCH 29.1 MCHC 33.5 RDW 15.9 H Plt Count 186 Neut % (Auto) 64.9 Lymph % (Auto) 20.2 L [place] % (Auto) 12.5 Eos % (Auto) 1.7 L Baso % (Auto) 0.7 Neut # (Auto) 3500 Lymph # (Auto) 1100 [place] # (Auto) 700 Eos # (Auto) 100 Baso # (Auto) 0 Sodium Potassium Chloride Carbon Dioxide BUN Creatinine Estimated GFR BUN/Creatinine Ratio Glucose Calcium NT-Pro-B Natriuret Pep 606 H Blood Type A Positive Antibody Screen Negative Crossmatch See Detail 10/27/21 05:27 WBC RBC Hgb Hct MCV MCH MCHC RDW Plt Count Neut % (Auto) Lymph % (Auto) [place] % (Auto) Eos % (Auto) Baso % (Auto) Neut # (Auto) Lymph # (Auto) [place] # (Auto) Eos # (Auto) Baso # (Auto) Sodium 130 L Potassium 4.2 Chloride 100 Carbon Dioxide 27 BUN 17 Creatinine 1.08 Estimated GFR > 60.0 BUN/Creatinine Ratio 15.7 Glucose 140 H Calcium 8.8 NT-Pro-B Natriuret Pep Blood Type Antibody Screen Crossmatch PENDING SALE TO [facility] Medical History Anxiety Arthritis CAD (coronary artery disease) DDD (degenerative disc disease), cervical Depression Diabetes Dyslipidemia Dysuria Elevated serum homocysteine level Heart attack History of angina History of CVA (cerebrovascular accident) History of dizziness History of esophageal reflux History of fatigue History of hematuria Impotence Lumbosacral radiculopathy at L5 Memory deficit Neuropathy of both feet Nocturia Nocturia Osteoarthritis Pacemaker (~2013) Paroxysmal A-fib 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 RBBB Renal insufficiency Sick sinus syndrome Sleep apnea (~2012) Spinal stenosis in cervical region Spinal stenosis of lumbar region Thyroid disease TIA (transient ischemic attack) Urinary retention Surgical History H/O laminectomy H/O shoulder surgery H/O thumb surgery History of appendectomy History of bladder surgery History of cardiac cath (~2012) History of cholecystectomy (~2012) History of cystoscopy History of fusion of cervical spine History of lumbar fusion History of tonsillectomy History of vasectomy S/P drug eluting coronary stent placement Status post right foot surgery Social History marital status: details: to Siri, lives in [place] household members: spouse lives independently: Yes caregiver/support person: No housing: house Smoking Status: Never smoker alcohol intake: current substance use type: does not use Assessment & Plan Assessment & Plan narrative: 86-year-old male with right hip fracture, postop day 4. 35 minutes spent with patient and discussing his case with nursing as well as his via phone, reviewing chart and documentation Assessment and plan: 1. Right hip fracture Plan: Continue with PT and OT.? Will continue with SCDs and Lovenox.? Will work to get better pain control. Will need skilled care facility. Anticipate discharge on Monday that would be my hopes. Patient is reluctant but I do not think he will be able to recover at home. He has had slow recovery to this point. His hypotension and dizziness have affected his ability to participate in physical therapy. Patient was encouraged today. Assessment 2.? Acute on chronic anemia secondary to blood loss secondary to surgery with appropriate response to 2 units of packed red blood cells Plan:? Continue to follow Assessment 3.? Chronic Atrial fibrillation with well-controlled rate Plan: Continue on amiodarone.? Continue metoprolol but hold for bradycardia or hypotension.? Continue Brilinta Assessment number 4.? Type 2 diabetes Plan:? Will continue with sliding scale insulin.? Continue with outpatient metformin and glipizide. Encourage patient to be more vigorous with eating. Assessment 5. Hyponatremia likely related to fracture and surgical procedure and overall comorbidities Plan:? Will continue to trend.? Will workup further if worsens.? If hypotension continues will consider IV fluids Assessment 6.? Back pain.? Plan:? Improved Assessment 7.? Depression Plan:? Continue duloxetine Assessment 8. Hypomagnesemia Plan:? Magnesium stable.? Continue with supplementation. Assessment 9.? Hypothyroidism Plan: Continue on levothyroxine Assessment 10.? Patient will likely need skilled care facility at discharge.? We will see how he progresses. Assessment 11. DVT prophylaxis Plan: Continue on Lovenox Assessment 12. GI prophylaxis Plan:? Continue on proton pump inhibitor Code status is DNR/DNI Time Spent With Patient Critical Care time: I spent a total of [] minutes of critical care time on this patient's care today; this time is exclusive of procedural time.
--- NOTE | 2021-10-27 11:00 | CM.DPNOTE ---
Spoke to Tj at [facility] program at [facility], and he is awaiting approval from his talent acquisition project manager to accept patient for this program. He will call us as soon as he knows the outcome. Marilu Banuelos CM Strip Presser.
--- NOTE | 2021-10-27 11:13 | PM.PNPO.1 ---
Subjective Subjective Date Patient Seen: 10/27/21 Time Patient Seen: 11:14 Interval history: Right hip pain is moderate to severe. Denies fever or chills. No nausea or vomiting. Exam Vital Signs (past 8 hours): - 10/27/21 06:00 10/27/21 10:00 Temperature 98.1 F 97.5 F L Pulse Rate 73 77 Respiratory Rate 18 12 Blood Pressure 126/65 133/80 Pulse Oximetry 98 99 Oxygen Delivery Method Room Air Oxygen Flow Rate 0 Narrative Exam Narrative: 86-year-old male resting comfortably in bed in no apparent distress. Right hip dressing shows scant dried drainage. Motor functions intact bilateral lower extremities. Sensation grossly intact to light touch bilateral lower extremities. Const General: cooperative Nutritional Appearance: average body habitus Orientation: alert Objective Labs Result Diagrams: 10/27/21 05:27 10/27/21 05:27 Labs: Laboratory Results - last 24 hr 10/26/21 10/27/21 10/27/21 08:50 05:27 05:27 WBC 5.4 RBC 3.37 L Hgb 9.8 L Hct 29.3 L MCV 86.9 MCH 29.1 MCHC 33.5 RDW 15.9 H Plt Count 186 Neut % (Auto) 64.9 Lymph % (Auto) 20.2 L [place] % (Auto) 12.5 Eos % (Auto) 1.7 L Baso % (Auto) 0.7 Neut # (Auto) 3500 Lymph # (Auto) 1100 [place] # (Auto) 700 Eos # (Auto) 100 Baso # (Auto) 0 Sodium 130 L Potassium 4.2 Chloride 100 Carbon Dioxide 27 BUN 17 Creatinine 1.08 Estimated GFR > 60.0 BUN/Creatinine Ratio 15.7 Glucose 140 H Calcium 8.8 Blood Type A Positive Antibody Screen Negative Crossmatch See Detail [facility] Medical History Anxiety Arthritis CAD (coronary artery disease) DDD (degenerative disc disease), cervical Depression Diabetes Dyslipidemia Dysuria Elevated serum homocysteine level Heart attack History of angina History of CVA (cerebrovascular accident) History of dizziness History of esophageal reflux History of fatigue History of hematuria Impotence Lumbosacral radiculopathy at L5 Memory deficit Neuropathy of both feet Nocturia Nocturia Osteoarthritis Pacemaker (~2013) Paroxysmal A-fib 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 RBBB Renal insufficiency Sick sinus syndrome Sleep apnea (~2012) Spinal stenosis in cervical region Spinal stenosis of lumbar region Thyroid disease TIA (transient ischemic attack) Urinary retention Surgical History H/O laminectomy H/O shoulder surgery H/O thumb surgery History of appendectomy History of bladder surgery History of cardiac cath (~2012) History of cholecystectomy (~2012) History of cystoscopy History of fusion of cervical spine History of lumbar fusion History of tonsillectomy History of vasectomy S/P drug eluting coronary stent placement Status post right foot surgery Social History marital status: details: aisha Horner, lives in [place] household members: spouse lives independently: Yes caregiver/support person: No housing: house Smoking Status: Never smoker alcohol intake: current substance use type: does not use Assessment & Plan Post-op Postoperative Procedures: Procedures Operation Date: 10/24/21 13:30 Actual Procedure Side Surgeon p ORIF Hip/Intramedullary Hip Screw Right Leslie Veras MD Postoperative day: 3 Postoperative status narrative: Stable Postoperative plan narrative: Weight-bearing as tolerated right lower extremity Mobilize with physical therapy and occupational therapy SCDs and Lovenox for DVT prophylaxis, recommend Lovenox 4 weeks for hip fracture, can consider aspirin alone if ambulating well Follow-up with [facility] in 2 weeks, will need staple removal and repeat x-rays Dr. Howard is managing acute exacerbation chronic anemia has ordered 2 units packed red blood cells, atrial fib with well-controlled rate, type 2 diabetes, hyponatremia, back pain, depression, hypo magnesium , hypothyroidism Disposition likely will need shelter facility when medically stable per Internal Medicine
[2021-10-27] MEDS: FUROSEMIDE 40 MG TABLET PO (11:35)
[2021-10-27] MEDS: LEVOTHYROXINE 75 MCG TABLET PO (11:35)
[2021-10-27] MEDS: INSULIN LISPRO 100 UNIT/ML 3ML VIAL SUBCUT ×2 (13:15→17:50)
[2021-10-27] MEDS: MAGNESIUM HYDROXIDE 30 ML UDC PO (13:15)
--- NOTE | 2021-10-27 13:32 | CM.DPNOTE ---
Addendum entered by Alexandria Bethea, PATIENT INTAKE REPRESENTATIVE 10/27/21 14:55: [facility] Can admit this patient 10.28.21 Addendum entered by Alexandria Lake, PATIENT INTAKE REPRESENTATIVE 10/27/21 14:43: [facility] has accepted patient for admission Monday; may be able to admit if medically ready Original Note: Faxed snf referral packet per Chloé to: [facility] [place], [facility]. Emailed [facility]. Received conf on all Marilu Banuelos CM Assist.
--- NOTE | 2021-10-27 13:53 | PT.IPTN ---
Current Diagnoses Acute posthemorrhagic anemia (10/23/21) Fracture of unspecified part of neck of right femur, initial encounter for closed fracture (10/23/21) Surgery Performed Operation Date: 10/24/21 13:30 Actual Procedures p ORIF Hip/Intramedullary Hip Screw(Right) - Leslie Veras MD Physical Therapy Treatment Note M2 PT-IP Current Condition Start: 10/25/21 09:04 Freq: NEEDED Status: Active Protocol: Document 10/27/21 13:30 SP (Rec: 10/27/21 16:17 SP [id number]) Physical Therapy Current Condition Current Condition Evaluation Date 10/25/21 Treatment Diagnosis R proximal femur fx s/p ORIF; difficulty in walking Onset Date 10/23/21 M3 PT-IP Subjective Start: 10/25/21 09:04 Freq: NEEDED Status: Active Protocol: Document 10/27/21 13:30 SP (Rec: 10/27/21 16:17 SP [id number]) Subjective Physical Therapy Visit Type Type Treatment Note Visit Start Time 13:30 Visit Stop Time 13:53 Total Visit Minutes 23 Notes CoTx with OT for physical mobility assist, nursing reported RLE buckling earlier during transfer. present for awareness of mobility, in agreement end tx unable to assist him with amount needed at this time and in agreement SNF for further strengthening before coming home. Number of CHEMICAL RADIATION TECHNICIAN Visits 3 Physical Therapy Visit Comments Patient Comments Pt sleeping when arrived. Easily to wake up, pleasant and agreeable to work with therapy. Therapy Pain Assessment Pain When Pain Assessed During Mobility Pain Present Pain Present Pain Reported Location Right Hip Scale Used no quantified pain R hip with mobility Pain Behaviors Facial Grimacing,Guarding, Restlessness,Wincing Pain Management Techniques Modification of Treatment,Re- positioning M4 PT-IP Mobility and Gait Start: 10/25/21 09:04 Freq: NEEDED Status: Active Protocol: Document 10/27/21 13:30 SP (Rec: 10/27/21 16:17 SP [id number]) PT-Bed Mobility Assessment Supine to Sit Supine to Sit Maximum Assistance,1 Person Assistance,Head of Bed Elevated,Bedrails Sit to Supine Sit to Supine Maximum Assistance,2 Person Assistance Scooting Scooting to Edge of Bed Moderate Assistance PT-Transfer Assessment Sit to and From Stand Sit to and from Stand Maximum Assistance,2 Person Assistance,Use of Upper Extremities Equipment Transfer Assistive Device Gait Belt,Front Wheeled Walker Orthotic/Prosthetic Devices or Brace: No Transfers Transfer Destination Bed,Chair Transfer Technique Stand Step Pivot Transfer Ability Level of Assist Maximum Assistance,2 Person Assistance,Use of Upper Extremities Comments Mobility Comments Instructed pt in LE ex: AP, heel slides able to perform RLE self approx 40 deg AROM. reported regular bed at home/ not adjustable, but can sleep in recliner. RLE to EOB Mod A and cued use bed rail lateral scoot toward EOB w/ assist of bed pad Max A, LUE bent WB on bed, Supine>sit and scoot to EOB Max A x1. Seated at EOB UE supported CGA. Sit> stand Max A x2, unsteady RLE beba w/ wt shifting, improved with quad facilitation/knee extension during WB. Stand step pivot transfer to L bed> chair, Assist for FWW repositioning, Max A x2 slow descent and cues for HP. Seated in chair SBA, eyes closed very tired. CHEMICAL RADIATION TECHNICIAN suggested getting back to bed. Max Ax2 STS, SPT w/ FWW chair > bed, unsteady and partial R Knee buckling cues for quad fac and sequencing BLE/ FWW. Stand>sit Max A x2, SIt>supine Max A x2, able self resposition with cues Min A. Pt had call light and all needs in reach with bed alarmed before left. in room. CHEMICAL RADIATION TECHNICIAN notified nursing PT/ OT transfers only, [facility] for nursing transfers at this time . Gait Assessment Comments Gait Comments Transfer only OT/PT as pt buckling. Stair Climbing Assessment Comments Stair Climbing Comments Not assessed. No stairs at home. PT-Balance Assessment Sitting Balance and Reactions Static Sitting Balance Ability Fair Dynamic Sitting Balance Ability Fair Standing Balance and Reactions Static Standing Balance Ability Poor Dynamic Standing Balance Ability Poor Device Used FWW M5 PT-IP Objective Assessments Start: 10/25/21 09:04 Freq: NEEDED Status: Active Protocol: Document 10/25/21 10:14 AW (Rec: 10/25/21 12:56 AW [id number]) Orientation Orientation/Cognition Level of Alertness Alert Orientation Name,Date,Place,Situation Safety Awareness Understands Safety Issues Gross Range of Motion Lower Extremity ROM Assessment Within Functional Limits Strength Lower Extremity Strength Assessment Bilaterally Impaired Hip R 3-/5; L 4-/5 Knee R 4-/5; L 4/5 Ankle B 4+/5 Comments Strength Comments Tested in supine Coordination Assessment Gross Coordination Gross Coordination WNL Sensation Assessment Sensation Gross Sensation WNL Muscle Tone Muscle Tone WNL Yes M6 PT-IP Treatment Start: 10/25/21 09:04 Freq: NEEDED Status: Active Protocol: Document 10/27/21 13:30 SP (Rec: 10/27/21 16:17 SP [id number]) Physical Therapy Treatment Exercises Exercises Ankle Pumps,Heel Slides Education Education Provided Weight Bearing Status,Post-Op Packet,Safety M7 PT-IP Assessment and Plan Start: 10/25/21 09:04 Freq: NEEDED Status: Active Protocol: Document 10/27/21 13:30 SP (Rec: 10/27/21 16:17 SP [id number]) PT Summary Assessment and Plan Potential Rehabilitation Potential Good Status of Condition at Evaluation Evolving Summary Impairments Pain,Strength,Balance, Cognition,Bed Mobility, Transfers,Gait Progress Towards Goals Slow Progress due to Pain,Slow Progress due to Activity Tolerance Assessment Summary Pt required increase assist during bed mob Max A x1 w/ HOB flat, Max A x2 for transfer w / FWW due to R knee buckling. Pt will require SNF for strength and functional mobility training to increase independence. in agreement. Goals Bed Mobility Goal Contact Guard Assistance Transfer Goal Minimal Assistance,Front Wheeled Walker Gait Goal Minimal Assistance,Front Wheel Walker Gait Distance 50 Days to Meet Goals 10 Frequency of Treatment Frequency Of Treatment Twice a Day Treatment Plan Physical Therapy Treatment Plan Bed Mobility Training,Transfer Training,Gait Training, Therapeutic Exercise,Balance Retraining,Post Op Education, Discharge Planning,Hot or Cold Pack,Neuromuscular Re-ed Other Recommendations and Next Treatment Monitor BP, bed mob, transfers Focus w/ FWW. Progress gait if able . Precautions Other Precautions falls, monitor BP Weight Bearing Status Weight Bearing Status Weight Bear as Tolerated Allowed Weight Bearing Amount (enter % WBAT RLE or #) (%) Recommendations To Nursing Amount of Assist Needed Mechanical Lift Discharge Recommendations PT Discharge Recommendations SNF Rehab Transportation Needs at Discharge Wheelchair/Cabulance,Stretcher /Ambulance
--- NOTE | 2021-10-27 14:01 | OT.IP.TRT ---
Current Diagnoses Acute posthemorrhagic anemia (10/23/21) Fracture of unspecified part of neck of right femur, initial encounter for closed fracture (10/23/21) Surgery Performed Operation Date: 10/24/21 13:30 Actual Procedures p ORIF Hip/Intramedullary Hip Screw(Right) - Leslie Veras MD Occupational Therapy Treatment Note M2 OT-IP Current Condition Start: 10/25/21 10:25 Freq: Status: Active Protocol: Document 10/25/21 10:25 CGR (Rec: 10/25/21 10:45 CGR [id number]) Occupational Therapy Current Condition Current Condition Evaluation Date 10/25/21 Treatment Diagnosis fall now s/p 2/6 R ORIF IM nailing Diagnosis Onset Date 10/23/21 Weight Bearing Status Weight Bearing Status Weight Bear as Tolerated M3 OT- IP Subjective and Pain Start: 10/25/21 10:25 Freq: Status: Active Protocol: Document 10/27/21 13:52 CCC (Rec: 10/27/21 14:01 [facility] [id number]) OT- Subjective Occupational Therapy Visit Type Type Treatment Note Visit Start Time 13:29 Visit Stop Time 13:46 Total Visit Minutes 17 Occupational Therapy Visit Comments Patient Comments Pt's in the room and went to see pt a second time to reassess mobility needs as per nursing aids pt buckling earlier during a transfer. Patient/Caregiver Goals Pt's now realizing would be best for pt to go to skilled rehab. OT Pain Assessment Pain When Pain Assessed During Mobility Pain Present Pain Present Pain Reported M4 OT- IP ADL's Start: 10/25/21 10:25 Freq: Status: Active Protocol: Document 10/27/21 11:42 [facility] (Rec: 10/27/21 11:50 [facility] [id number]) OT [id number] Comments OT Self-Feeding Comments NOt at meal time. OT ADL-Grooming Comments OT Grooming Comments Not performed. OT ADL-Oral Care Comments Oral Care Comments Not performed OT ADL-Dressing General Eval Lower Body Dressing Ability Total Assistance Areas Needing Assistance Socks OT ADL-Toileting General Evaluation Toileting Ability Total Assistance Comments OT Toileting Comments [place] OT ADL-Bathing Comments OT Bathing Comments Not performed M5 OT- IP IADL's Start: 10/25/21 10:25 Freq: Status: Active Protocol: Document 10/25/21 10:25 CGR (Rec: 10/25/21 10:45 CGR [id number]) OT-Instrumental Activities of Daily Living Deficits IADL Deficits Identified Deficits Home Safety Awareness Awareness of Need for Assistance at Home Good Awareness Ability to Problem Solve Emergency Unable to Problem Solve Situations Medication Management Medication Management Caregiver Administers Money Management Money Management Caregiver Provides Assistance Meal Preparation Meal Preparation Caregiver Provides Assist Artist'S Manager Artist'S Manager Caregiver Provides Assist Driving Driving Comments Pt does not drive M6 OT- IP Functional Cognition Start: 10/25/21 10:25 Freq: Status: Active Protocol: Document 10/27/21 13:52 [facility] (Rec: 10/27/21 14:01 [facility] [id number]) Cognitive Factors Limiting Selfcare Function Cognitive Comments Cognitive Assessment Comments Pt is very pleasant, motivated , and cooperative during therapy session. M7 OT- IP Mobility and Balance Start: 10/25/21 10:25 Freq: Status: Active Protocol: Document 10/27/21 13:52 [facility] (Rec: 10/27/21 14:01 [facility] [id number]) OT- Bed Mobility Assessment Supine to Sit Supine to Sit Assist Maximum Assistance,1 Person Assistance Sit to Supine Sit to Supine Assist Maximum Assistance,2 Person Assistance OT-Transfer Assessment Sit to and From Stand Sit to and from Stand Maximum Assistance,2 Person Assistance Transfers Transfer Ability Maximum Assistance,2 Person Assistance Technique Transfer Destination Bed,Chair Devices Transfer Assistive Devices Gait Belt,Front Wheeled Walker Comments Mobility Comments Pt's clarified that they had a flat bed at home. MAX A x1 assist to get his RLE to the edge of the bed and pt able to pull up on therapist hand to get upright. MAX A x2 to stand and MAXAx2 assist to hold pt up so able to move his RLE to transfer to and from the recliner to bed. OT- Gait Assessment Comments Gait Ability Comments Transfer only OT/PT as pt buckling. OT- Balance Assessment Sitting Balance and Reactions Static Sitting Balance Ability Good Standing Balance and Reactions Static Standing Balance Ability Poor Dynamic Standing Balance Ability Poor M8 OT- IP Objective Assessments Start: 10/25/21 10:25 Freq: Status: Active Protocol: Document 10/25/21 10:25 CGR (Rec: 10/25/21 10:45 CGR [id number]) OT Gross Range of Motion Upper Extremity Range of Motion Assessment Within Functional Limits OT Strength Upper Extremity Strength Assessment Within Functional Limits Comments Strength Comments 4+/5 OT- Coordination Assessment Upper Extremity Finger to Nose Test Within Functional Limits Finger Tapping Test Within Functional Limits Comments Coordination Comments Of note, pt is missing the tip of his L pointer finger and had his R thumb re attached both after seperate accidents with power saws. OT-Muscle Tone Assessment Muscle Tone WNL Yes OT Sensation Assessment Edema Edema Present Edema Comments R thigh M9 OT- IP Assessment and Plan Start: 10/25/21 10:25 Freq: Status: Active Protocol: Document 10/27/21 13:52 [facility] (Rec: 10/27/21 14:01 [facility] [id number]) OT Summary Assessment and Plan Potential Rehabilitation Potential Good Analytic Complexity at Evaluation Moderate Summary OT Impairments Pain,Balance,Functional Cognition,Functional Mobility, Grooming,Dressing,Toileting, Bathing,Toilet Transfers, Shower Transfers,Activity Tolerance Progress Towards Goals Progressing Toward Goals,Slow Progress due to Pain,Slow Progress due to Activity Tolerance Assessment Summary Pt is very pleasant, cooperative and a good rehab candidate for skilled rehab. Pt's main barrier is his pain and not able to tolerate putting weight on his RLE and needing extensive assist for mobility and ADl needs. Pt's is full agreement that is would be best to have pt go to skilled rehab prior to going home. Goals Grooming Goal Independent Dressing Goal Minimal Assistance Toileting Goal Independent Bathing Goal Minimal Assistance Toilet Transfer Goal Contact Guard Assistance Shower Transfer Goal Minimal Assistance Days to Meet Goals 25 Frequency of Treatment Frequency Of Treatment Twice a Day Treatment Plan OT Treatment Plan ADL Training,Functional Cognition Training,Functional Mobility,Patient/Family Education,Discharge Planning Other Treatment Recommendations and Next Transfer with FWW to the [facility] Treatment Focus with MODA X2. Discharge Recommendations OT Discharge Recommendations SNF Rehab Transportation Needs at Discharge Wheelchair/Cabulance
--- NOTE | 2021-10-27 14:17 | TAR.TRANSNT ---
Documentation was unfinished for blood transfusion. Blood is not running at this time. Pt has no sxs of transfusion reaction. Blood is documented as completed now.
--- NOTE | 2021-10-27 19:49 | PC.NURSE ---
Nausea, received zofran and it was helpful. Working with PT, extensive leg buckling, max assist. Order to leave in beasley for now. Sodium remains decreased. Restart IVF to see if this helps correct sodium which might also help improve weakness in the rt leg since overall he might not feel so weak. IV site has and pt is not wanting to get a new one. Okay to leave current IV in as long as it is functional and can infuse his IVF overnight.
[2021-10-27] MEDS: SODIUM CHLORIDE 0.9% 1,000 ML 60 ML IV (20:01)
[2021-10-27] MEDS: DULOXETINE 30 MG CAPSULE PO (21:41)
[2021-10-28] VITALS (8 sets, daily range): BP systolic 122–139; BP diastolic 71–84; PULSE 71–89; RESP 13–19; TEMP 36.2–37.1; O2SAT 96–100
--- NOTE | 2021-10-28 06:10 | PC.NURSE ---
Pts RAC IV came out at 0600, this RN noticed that it was out when checking on the patient. LW still intact and fluids are running.
[2021-10-28] MEDS: LEVOTHYROXINE 75 MCG TABLET PO (06:21)
[2021-10-28 06:37] LABS: Add Manual Diff / Slide Review NO; Basophils Absolute Auto 0 /uL (0-100); Basophils Percent Auto 0.4 % (0-2); Eosinophils Absolute Auto 100 /uL (0-450); Eosinophils Percent Auto 1.2 % (2-4); Hematocrit 28.2 % (41-53); Hemoglobin 9.3 g/dL (13.5-17.5); Lymphocytes Absolute Auto 900 /uL (1100-4500); Mean Corpuscular HGB Conc 33.1 % (30-36); Mean Corpuscular Hemoglobin 29.1 PG (26-34); Mean Corpuscular Volume 88.1 fL (80-100); Monocytes Absolute Auto 700 /uL (0-900); Monocytes Percent Auto 11.6 % (3-14); Neutrophils Absolute Auto 4300 /uL (1500-7000); Neutrophils Percent Auto 71.8 % (50-75); Platelet Count 210 X10^3/uL (150-400); Red Cell Distribution Width 16.3 % (11.6-14.8)
[2021-10-28 06:45] LABS: BUN Creatinine Ratio 14.7 (6-22); Blood Urea Nitrogen 16 mg/dL (9-20); Calcium 8.6 mg/dL (8.4-10.2); Carbon Dioxide 25 mmol/L (22-32); Chloride 99 mmol/L (98-107); Estimated Glomerular Filt Rate > 60.0 mL/min (>60); Glucose 137 mg/dL (80-110); HEMOLYSIS < 15 (0-50); Potassium 4.3 mmol/L (3.4-5.1); Sodium 130 mmol/L (137-145)
[2021-10-28] MEDS: INSULIN LISPRO 100 UNIT/ML 3ML VIAL SUBCUT ×3 (08:16→16:40)
[2021-10-28] MEDS: DOCUSATE 100 MG CAPSULE 200 MG PO ×2 (08:19→20:49)
[2021-10-28] MEDS: ACETAMINOPHEN 325 MG TABLET 975 MG PO ×3 (08:20→20:49)
[2021-10-28] MEDS: PANTOPRAZOLE DR 40 MG TABLET PO ×2 (08:20→20:49)
[2021-10-28] MEDS: ASPIRIN EC 81 MG TABLET PO (08:20)
[2021-10-28] MEDS: METOPROLOL ER 25 MG TABLET PO ×2 (08:20→20:49)
[2021-10-28] MEDS: ENOXAPARIN 40 MG/0.4 ML SYRINGE SUBCUT (08:21)
[2021-10-28] MEDS: SODIUM CHLORIDE 0.9% FLUSH 10 ML IV (08:39)
[2021-10-28] MEDS: AMIODARONE 200 MG TABLET 100 MG PO (08:39)
[2021-10-28] MEDS: METFORMIN HCL 500 MG TABLET PO ×2 (08:39→16:45)
--- NOTE | 2021-10-28 08:49 | PM.PN.1 ---
Subjective Subjective Date Patient Seen: 10/28/21 Time Patient Seen: 08:49 Interval history: CC: I need to poop Stable overnight, Hgb stable today, still requiring IVF, scant PO intake and no BM in 2 weeks per patient dressing on R hip looks saturated but not overflowing. painful to move. workign with PT who have him restricted to [facility] for now. OK to continue to use current peripheral IV Exam Vital Signs (past 8 hours): - 10/28/21 06:00 Temperature 98.1 F Pulse Rate 74 Respiratory Rate 16 Blood Pressure 127/73 Pulse Oximetry 96 Oxygen Delivery Method Room Air Oxygen Flow Rate 0 Narrative Exam Narrative: alert elder lying in bed taking pills Const General: cooperative and frail appearing HENNJ Head: normal to inspection, normocephalic and atraumatic Eyes General: appearance normal, both eyes and all related structures Neck Neck: normal visual inspection, full ROM and trachea midline Resp Other: moving air well, clear to auscultation bilaterally Cardio Other: regular rate, S1/S2 GI Other: active bowel sounds nondistended nontender Neuro General: patient alert, patient awake and CN's II-XI intact bilaterally Extrem Other: moving all 4 extremities. R hip with blood soaked bandage on top, dry bandage distal Objective Labs Result Diagrams: 10/28/21 06:09 10/28/21 06:09 Labs: Laboratory Results - last 24 hr 10/26/21 10/28/21 10/28/21 08:50 06:09 06:09 WBC 6.0 RBC 3.20 L Hgb 9.3 L Hct 28.2 L MCV 88.1 MCH 29.1 MCHC 33.1 RDW 16.3 H Plt Count 210 Neut % (Auto) 71.8 Lymph % (Auto) 15.0 L [place] % (Auto) 11.6 Eos % (Auto) 1.2 L Baso % (Auto) 0.4 Neut # (Auto) 4300 Lymph # (Auto) 900 L [place] # (Auto) 700 Eos # (Auto) 100 Baso # (Auto) 0 Sodium 130 L Potassium 4.3 Chloride 99 Carbon Dioxide 25 BUN 16 Creatinine 1.09 Estimated GFR > 60.0 BUN/Creatinine Ratio 14.7 Glucose 137 H Calcium 8.6 Crossmatch See Detail [facility] Medical History Anxiety Arthritis CAD (coronary artery disease) DDD (degenerative disc disease), cervical Depression Diabetes Dyslipidemia Dysuria Elevated serum homocysteine level Heart attack History of angina History of CVA (cerebrovascular accident) History of dizziness History of esophageal reflux History of fatigue History of hematuria Impotence Lumbosacral radiculopathy at L5 Memory deficit Neuropathy of both feet Nocturia Nocturia Osteoarthritis Pacemaker (~2013) Paroxysmal A-fib 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 RBBB Renal insufficiency Sick sinus syndrome Sleep apnea (~2012) Spinal stenosis in cervical region Spinal stenosis of lumbar region Thyroid disease TIA (transient ischemic attack) Urinary retention Surgical History H/O laminectomy H/O shoulder surgery H/O thumb surgery History of appendectomy History of bladder surgery History of cardiac cath (~2012) History of cholecystectomy (~2012) History of cystoscopy History of fusion of cervical spine History of lumbar fusion History of tonsillectomy History of vasectomy S/P drug eluting coronary stent placement Status post right foot surgery Social History marital status: details: to Siri, lives in [place] household members: spouse lives independently: Yes caregiver/support person: No housing: house Smoking Status: Never smoker alcohol intake: current substance use type: does not use Assessment & Plan Assessment & Plan narrative: 86-year-old male with right hip fracture, postop day 5. 35 minutes spent with patient and discussing his case with nursing, reviewing chart and documentation Assessment and plan: #Right hip fracture Continue with PT and OT.? Will continue with SCDs and Lovenox, will need lovenox for 4 weeks post op per ortho.? Will work to get better pain control. Will need skilled care facility.? Monday is still good discharge goal.? Patient is reluctant but I do not think he will be able to recover at home.? He has had slow recovery to this point.? His hypotension and dizziness have affected his ability to participate in physical therapy.? #Acute on chronic anemia secondary to blood loss secondary to surgery with appropriate response to 2 units of packed red blood cells stable HGB today, follow #Chronic Atrial fibrillation with well-controlled rate Continue on amiodarone.? Continue metoprolol but hold for bradycardia or hypotension.? Continue Brilinta #Type 2 diabetes Continue with sliding scale insulin.? Continue with outpatient metformin and glipizide.? Encourage patient to be more vigorous with eating. #Hyponatremia likely related to fracture and surgical procedure and overall comorbidities Continue to trend with IVF #Back pain.? Improved, mobilize as tolerated #Depression Continue duloxetine #Hypomagnesemia Magnesium stable.? Continue with supplementation. #Hypothyroidism Continue on levothyroxine #DVT prophylaxis Continue on Lovenox, will need 4 weeks total postop #GI prophylaxis Plan:? Continue on proton pump inhibitor Code status is DNR/DNI Time Spent With Patient Critical Care time: I spent a total of [] minutes of critical care time on this patient's care today; this time is exclusive of procedural time.
[2021-10-28] MEDS: polyethylene glycoL 3350 17 GM POWD.PACK PO (09:30)
[2021-10-28] MEDS: BISACODYL 10 MG SUPP PR (10:32)
--- NOTE | 2021-10-28 12:00 | PT.IPTN ---
Current Diagnoses Acute posthemorrhagic anemia (10/23/21) Fracture of unspecified part of neck of right femur, initial encounter for closed fracture (10/23/21) Surgery Performed Operation Date: 10/24/21 13:30 Actual Procedures p ORIF Hip/Intramedullary Hip Screw(Right) - Leslie Veras MD Physical Therapy Treatment Note M2 PT-IP Current Condition Start: 10/25/21 09:04 Freq: NEEDED Status: Active Protocol: Document 10/27/21 13:30 SP (Rec: 10/27/21 16:17 SP [id number]) Physical Therapy Current Condition Current Condition Evaluation Date 10/25/21 Treatment Diagnosis R proximal femur fx s/p ORIF; difficulty in walking Onset Date 10/23/21 M3 PT-IP Subjective Start: 10/25/21 09:04 Freq: NEEDED Status: Active Protocol: Document 10/28/21 11:20 KS (Rec: 10/28/21 12:21 KS [id number]) Subjective Physical Therapy Visit Type Type Treatment Note Visit Start Time 11:20 Visit Stop Time 12:00 Total Visit Minutes 24 Notes Split treatment 11:20-11:37, 11:53-12:00 Co-treat w/ OT Number of BEEF TRIMMER Visits 4 Physical Therapy Visit Comments Patient Comments Pt agreeable to transferring to [facility]. Therapy Pain Assessment Pain When Pain Assessed During Mobility Pain Present Pain Present Pain Reported M4 PT-IP Mobility and Gait Start: 10/25/21 09:04 Freq: NEEDED Status: Active Protocol: Document 10/28/21 11:20 KS (Rec: 10/28/21 12:21 KS [id number]) PT-Bed Mobility Assessment Supine to Sit Supine to Sit Maximum Assistance,2 Person Assistance Scooting Scooting to Edge of Bed Contact Guard Assistance PT-Transfer Assessment Sit to and From Stand Sit to and from Stand Maximum Assistance,2 Person Assistance,Use of Upper Extremities Equipment Transfer Assistive Device Gait Belt,Front Wheeled Walker Orthotic/Prosthetic Devices or Brace: No Transfers Transfer Destination Bed,Bedside Commode Transfer Technique Stand Step Pivot Transfer Ability Level of Assist Maximum Assistance,2 Person Assistance,Use of Upper Extremities Comments Mobility Comments Pt in bed upon arrival and agreeable to transfer to commode. Max A x2 for sup<>sit , CGA and increased time for scooting EOB, Max A x2 for sit <>stand and SSP transfer to [facility]. After toileting, Pt transferred from BSC to bed MAX A x3, but upon sitting, stated he needed to go back to BSC to attempt bowel movement again. Pt SSP from bed to BSC again Max A x3 and cues. Positive knee buckling w/ every transfer. Pt left on BSC w/ nursing staff. Gait Assessment Comments Gait Comments Transfer only OT/PT as pt buckling. Stair Climbing Assessment Comments Stair Climbing Comments Not assessed. No stairs at home. PT-Balance Assessment Sitting Balance and Reactions Static Sitting Balance Ability Fair Dynamic Sitting Balance Ability Fair Standing Balance and Reactions Static Standing Balance Ability Poor Dynamic Standing Balance Ability Poor Device Used FWW M5 PT-IP Objective Assessments Start: 10/25/21 09:04 Freq: NEEDED Status: Active Protocol: Document 10/25/21 10:14 AW (Rec: 10/25/21 12:56 AW [id number]) Orientation Orientation/Cognition Level of Alertness Alert Orientation Name,Date,Place,Situation Safety Awareness Understands Safety Issues Gross Range of Motion Lower Extremity ROM Assessment Within Functional Limits Strength Lower Extremity Strength Assessment Bilaterally Impaired Hip R 3-/5; L 4-/5 Knee R 4-/5; L 4/5 Ankle B 4+/5 Comments Strength Comments Tested in supine Coordination Assessment Gross Coordination Gross Coordination WNL Sensation Assessment Sensation Gross Sensation WNL Muscle Tone Muscle Tone WNL Yes M6 PT-IP Treatment Start: 10/25/21 09:04 Freq: NEEDED Status: Active Protocol: Document 10/28/21 11:20 KS (Rec: 10/28/21 12:21 KS [id number]) Physical Therapy Treatment Education Education Provided Weight Bearing Status,Post-Op Packet,Safety M7 PT-IP Assessment and Plan Start: 10/25/21 09:04 Freq: NEEDED Status: Active Protocol: Document 10/28/21 11:20 KS (Rec: 10/28/21 12:21 KS [id number]) PT Summary Assessment and Plan Potential Rehabilitation Potential Good Status of Condition at Evaluation Evolving Summary Impairments Pain,Strength,Balance, Cognition,Bed Mobility, Transfers,Gait Progress Towards Goals Slow Progress due to Pain,Slow Progress due to Activity Tolerance Assessment Summary Pt continues to be limited by pain and weakness and w/ positive knee buckling when transferring. He needs 2-3 person Max A for transfers due to frequent knee buckling. He is putting forth good effort during treatment, but reporting high amounts of pain . He will require SNF to improve strength and functional mobility. Goals Bed Mobility Goal Contact Guard Assistance Transfer Goal Minimal Assistance,Front Wheeled Walker Gait Goal Minimal Assistance,Front Wheel Walker Gait Distance 50 Days to Meet Goals 10 Frequency of Treatment Frequency Of Treatment Twice a Day Treatment Plan Physical Therapy Treatment Plan Bed Mobility Training,Transfer Training,Gait Training, Therapeutic Exercise,Balance Retraining,Post Op Education, Discharge Planning,Hot or Cold Pack,Neuromuscular Re-ed Other Recommendations and Next Treatment Monitor BP, bed mob, transfers Focus w/ FWW. Progress gait if able . Precautions Other Precautions falls, monitor BP Weight Bearing Status Weight Bearing Status Weight Bear as Tolerated Allowed Weight Bearing Amount (enter % WBAT RLE or #) (%) Recommendations To Nursing Amount of Assist Needed Mechanical Lift Discharge Recommendations PT Discharge Recommendations SNF Rehab Transportation Needs at Discharge Wheelchair/Cabulance,Stretcher /Ambulance
--- NOTE | 2021-10-28 12:00 | OT.IP.TRT ---
Current Diagnoses Acute posthemorrhagic anemia (10/23/21) Fracture of unspecified part of neck of right femur, initial encounter for closed fracture (10/23/21) Surgery Performed Operation Date: 10/24/21 13:30 Actual Procedures p ORIF Hip/Intramedullary Hip Screw(Right) - Leslie Veras MD Occupational Therapy Treatment Note M2 OT-IP Current Condition Start: 10/25/21 10:25 Freq: Status: Active Protocol: Document 10/25/21 10:25 CGR (Rec: 10/25/21 10:45 CGR [id number]) Occupational Therapy Current Condition Current Condition Evaluation Date 10/25/21 Treatment Diagnosis fall now s/p 2/6 R ORIF IM nailing Diagnosis Onset Date 10/23/21 Weight Bearing Status Weight Bearing Status Weight Bear as Tolerated M3 OT- IP Subjective and Pain Start: 10/25/21 10:25 Freq: Status: Active Protocol: Document 10/28/21 13:00 CCC (Rec: 10/28/21 13:12 [facility] [id number]) OT- Subjective Occupational Therapy Visit Type Type Treatment Note Visit Start Time 11:20 Visit Stop Time 12:00 Total Visit Minutes 40 Occupational Therapy Visit Comments Patient Comments Pt agreed to get up to try to use the BSC, PHARMACY CUSTOMER CARE SPECIALIST present for part of the session. Patient/Caregiver Goals To go to skilled rehab. OT Pain Assessment Pain When Pain Assessed During Mobility Pain Present Pain Present Pain Reported M4 OT- IP ADL's Start: 10/25/21 10:25 Freq: Status: Active Protocol: Document 10/28/21 13:00 CCC (Rec: 10/28/21 13:12 [facility] [id number]) OT [id number] Comments OT Self-Feeding Comments NOt at meal time. OT ADL-Grooming General Evaluation Grooming Ability Standby Assistance Comments OT Grooming Comments set-up while seated OT ADL-Oral Care Comments Oral Care Comments Not performed OT ADL-Dressing General Eval Lower Body Dressing Ability Total Assistance Areas Needing Assistance Socks OT ADL-Toileting General Evaluation Toileting Ability Total Assistance Comments OT Toileting Comments MAX AX 2 to stand and assist from nursing aid for toileting needs. OT ADL-Bathing Comments OT Bathing Comments Sponge bath more appropriate at this time. M5 OT- IP IADL's Start: 10/25/21 10:25 Freq: Status: Active Protocol: Document 10/25/21 10:25 CGR (Rec: 10/25/21 10:45 CGR [id number]) OT-Instrumental Activities of Daily Living Deficits IADL Deficits Identified Deficits Home Safety Awareness Awareness of Need for Assistance at Home Good Awareness Ability to Problem Solve Emergency Unable to Problem Solve Situations Medication Management Medication Management Caregiver Administers Money Management Money Management Caregiver Provides Assistance Meal Preparation Meal Preparation Caregiver Provides Assist Forestry Foreman Forestry Foreman Caregiver Provides Assist Driving Driving Comments Pt does not drive M6 OT- IP Functional Cognition Start: 10/25/21 10:25 Freq: Status: Active Protocol: Document 10/28/21 13:00 [facility] (Rec: 10/28/21 13:12 [facility] [id number]) Cognitive Factors Limiting Selfcare Function Cognitive Comments Cognitive Assessment Comments Pt at baseline level. M7 OT- IP Mobility and Balance Start: 10/25/21 10:25 Freq: Status: Active Protocol: Document 10/28/21 13:00 [facility] (Rec: 10/28/21 13:12 [facility] [id number]) OT- Bed Mobility Assessment Supine to Sit Supine to Sit Assist Maximum Assistance,2 Person Assistance OT-Transfer Assessment Sit to and From Stand Sit to and from Stand Maximum Assistance,2 Person Assistance Transfers Transfer Ability Maximum Assistance,Total Assistance,2 Person Assistance Technique Transfer Destination Bed,Chair Devices Transfer Assistive Devices Gait Belt,Front Wheeled Walker Comments Mobility Comments MAX A x2 to assist to get up from side lying to upright. MAXA x2 to stand to FWW and heavy assist MAX/total assist x2 to help hold pt upright as pt buckling with RLE and another person assist as well to guide his hips. At this time it would be much safer to use to use a adryan lift. To try sliding board tomorrow. OT- Gait Assessment Comments Gait Ability Comments Transfer only OT/PT as pt buckling. OT- Balance Assessment Sitting Balance and Reactions Static Sitting Balance Ability Good Standing Balance and Reactions Static Standing Balance Ability Poor Dynamic Standing Balance Ability Poor M8 OT- IP Objective Assessments Start: 10/25/21 10:25 Freq: Status: Active Protocol: Document 10/25/21 10:25 CGR (Rec: 10/25/21 10:45 CGR [id number]) OT Gross Range of Motion Upper Extremity Range of Motion Assessment Within Functional Limits OT Strength Upper Extremity Strength Assessment Within Functional Limits Comments Strength Comments 4+/5 OT- Coordination Assessment Upper Extremity Finger to Nose Test Within Functional Limits Finger Tapping Test Within Functional Limits Comments Coordination Comments Of note, pt is missing the tip of his L pointer finger and had his R thumb re attached both after seperate accidents with power saws. OT-Muscle Tone Assessment Muscle Tone WNL Yes OT Sensation Assessment Edema Edema Present Edema Comments R thigh M9 OT- IP Assessment and Plan Start: 10/25/21 10:25 Freq: Status: Active Protocol: Document 10/28/21 13:00 [facility] (Rec: 10/28/21 13:12 [facility] [id number]) OT Summary Assessment and Plan Potential Rehabilitation Potential Good Analytic Complexity at Evaluation Moderate Summary OT Impairments Pain,Balance,Functional Cognition,Functional Mobility, Grooming,Dressing,Toileting, Bathing,Toilet Transfers, Shower Transfers,Activity Tolerance Progress Towards Goals Progressing Toward Goals,Slow Progress due to Pain,Slow Progress due to Activity Tolerance Assessment Summary Pt having more difficulty with mobility today however per pt has been constipated. Pt is cooperative and pleasant and to go to skilled rehab when medically stable. Goals Grooming Goal Independent Dressing Goal Minimal Assistance Toileting Goal Independent Bathing Goal Minimal Assistance Toilet Transfer Goal Contact Guard Assistance Shower Transfer Goal Minimal Assistance Days to Meet Goals 25 Frequency of Treatment Frequency Of Treatment Once a Day Treatment Plan OT Treatment Plan ADL Training,Functional Cognition Training,Functional Mobility,Patient/Family Education,Discharge Planning Other Treatment Recommendations and Next Transfer with sliding board to Treatment Focus the BSC with MAxA X2. Discharge Recommendations OT Discharge Recommendations SNF Rehab Transportation Needs at Discharge Wheelchair/Cabulance
[2021-10-28] MEDS: ONDANSETRON 4 MG/2 ML INJ IV (12:21)
[2021-10-28] MEDS: SODIUM CHLORIDE 0.9% 1,000 ML 60 ML IV (12:21)
--- NOTE | 2021-10-28 13:38 | PM.PNPO.1 ---
Subjective Subjective Date Patient Seen: 10/28/21 Time Patient Seen: 13:38 Interval history: Patient is complaining of moderate pain. His biggest concern is that he has not had a bowel movement. He is trying many pharmaceuticals to try to elicit a bowel movement. The nurse notes both of his legs are buckling with physical therapy. He has needed a [place] lift out of bed. Exam Vital Signs (past 8 hours): - 10/28/21 06:00 10/28/21 09:00 Temperature 98.1 F 97.6 F Pulse Rate 74 71 Respiratory Rate 16 13 Blood Pressure 127/73 137/81 Pulse Oximetry 96 97 Oxygen Delivery Method Room Air Oxygen Flow Rate 0 Narrative Exam Narrative: Pleasant 86-year-old male, resting comfortably in bed, no acute distress. is at bedside. The dressing demonstrates approximately a 1 cm area of bloody discharge. The nurse has changed the bandage already this morning. I removed the dressing the check for active bleeding, no active bleeding and no need for additional skin. The dressing was replaced with a mild compressive dressing. Bilateral Lower extremities: Motor function is grossly intact, sensation is grossly intact to light touch, calves are soft and nontender palpation. Objective Labs Result Diagrams: 10/28/21 06:09 10/28/21 06:09 Labs: Laboratory Results - last 24 hr 10/26/21 10/28/21 10/28/21 08:50 06:09 06:09 WBC 6.0 RBC 3.20 L Hgb 9.3 L Hct 28.2 L MCV 88.1 MCH 29.1 MCHC 33.1 RDW 16.3 H Plt Count 210 Neut % (Auto) 71.8 Lymph % (Auto) 15.0 L [place] % (Auto) 11.6 Eos % (Auto) 1.2 L Baso % (Auto) 0.4 Neut # (Auto) 4300 Lymph # (Auto) 900 L [place] # (Auto) 700 Eos # (Auto) 100 Baso # (Auto) 0 Sodium 130 L Potassium 4.3 Chloride 99 Carbon Dioxide 25 BUN 16 Creatinine 1.09 Estimated GFR > 60.0 BUN/Creatinine Ratio 14.7 Glucose 137 H Calcium 8.6 Crossmatch See Detail [facility] Medical History Anxiety Arthritis CAD (coronary artery disease) DDD (degenerative disc disease), cervical Depression Diabetes Dyslipidemia Dysuria Elevated serum homocysteine level Heart attack History of angina History of CVA (cerebrovascular accident) History of dizziness History of esophageal reflux History of fatigue History of hematuria Impotence Lumbosacral radiculopathy at L5 Memory deficit Neuropathy of both feet Nocturia Nocturia Osteoarthritis Pacemaker (~2013) Paroxysmal A-fib 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 RBBB Renal insufficiency Sick sinus syndrome Sleep apnea (~2012) Spinal stenosis in cervical region Spinal stenosis of lumbar region Thyroid disease TIA (transient ischemic attack) Urinary retention Surgical History H/O laminectomy H/O shoulder surgery H/O thumb surgery History of appendectomy History of bladder surgery History of cardiac cath (~2012) History of cholecystectomy (~2012) History of cystoscopy History of fusion of cervical spine History of lumbar fusion History of tonsillectomy History of vasectomy S/P drug eluting coronary stent placement Status post right foot surgery Social History marital status: details: aisah Horner, lives in [place] household members: spouse lives independently: Yes caregiver/support person: No housing: house Smoking Status: Never smoker alcohol intake: current substance use type: does not use Assessment & Plan Post-op Postoperative Procedures: Procedures Operation Date: 10/24/21 13:30 Actual Procedure Side Surgeon p ORIF Hip/Intramedullary Hip Screw Right Leslie Veras MD Postoperative day: 4 Postoperative status narrative: Stable Postoperative plan narrative: -Mobilize with physical therapy and occupational therapy. Weightbearing as tolerated with front wheel walker on right lower extremity -Follow-up with [facility] in 2 weeks, will need staple removal and repeat x-rays -PCP is managing acute exacerbation chronic anemia (2 units packed red blood cells transfused) Hgb 8.3 today, atrial fib with well-controlled rate, type 2 diabetes, hyponatremia, back pain, depression, hypo magnesium , hypothyroidism -Disposition likely will need senior living facility when medically stable per Internal Medicine, likely Monday -SCDs and Lovenox for DVT prophylaxis, recommend Lovenox 4 weeks for hip fracture. - Currently on Brillinta 90mg BID, aspirin 81mg daily, and Lovenox 40mg daily.
--- NOTE | 2021-10-28 14:00 | DIET.CONS ---
Dietary Consultation Note Admission Date: 10/23/2021 22:38 RD Note: Pt screened by RD for LOS d5. Pt s/p ORIF and 2 units PRBC for post-op anemia. POs 25-100%, inconsistent. Kitchen to send ONS Glucerna bid to support protein and micronutrient needs for healing. Ht: 172.72 cm Wt: 73.8 kg BMI: 24.3 UBW: Last BM: () MNA: Josh Score: 18 Diet: 10/24/21 Dinner Carbohydrate Consistent Diet Diet Modifications: Carbohydrate level: Medium (3 CHO) Nutrition Percent Meal Consumed 75% 10/26/21 18:06 Labs: RBC 3.20 X10^6/uL (4.5-5.9) L 10/28/21 06:09 Hgb 9.3 g/dL (13.5-17.5) L 10/28/21 06:09 Hct 28.2 % (41-53) L 10/28/21 06:09 Creatinine 1.09 mg/dL (0.66-1.25) 10/28/21 06:09 NT-Pro-B Natriuret Pep 606 pg/mL (<450) H 10/26/21 05:56 Electronically Signed by: Indira Riggs 10/28/21 14:00 Clinical Dietitian [address] [id number]
--- NOTE | 2021-10-28 14:15 | PT-IP ANOTE ---
Pt refused therapy due to fatigue from recent transfer from commode to bed.
[2021-10-28 19:47] LABS: COVID19 -Nasal RAPID Negative (Negative)
[2021-10-28] MEDS: DULOXETINE 30 MG CAPSULE PO (20:49)
[2021-10-29 05:10] VITALS: BP 146/80; PULSE 80; RESP 19; TEMP 36.4; O2SAT 94
[2021-10-29] MEDS: SODIUM CHLORIDE 0.9% 1,000 ML 60 ML IV (05:23)
[2021-10-29] MEDS: LEVOTHYROXINE 75 MCG TABLET PO (06:27)
--- NOTE | 2021-10-29 08:33 | DI.RAD.S_ITS ---
PROCEDURE: XR LUMBAR SPINE 2-3V INDICATIONS: pain, s/p fall TECHNIQUE: 3 views of the lumbar spine were acquired. COMPARISON: None. FINDINGS: Bones: 5 [id number] vertebrae are present. Postsurgical changes compatible with L4-S1 PLIF and right L5-S1 laminotomy. Orthopedic hardware is intact. No lucencies at the bone-hardware interface.. There is normal bony alignment. No vertebral body compression fractures. No suspicious bony lesions. Mild degenerative disc changes and facet arthropathy noted throughout the lumbar spine. Soft tissues: Overlying bowel gas pattern is normal. No suspicious soft tissue calcifications. IMPRESSION: 1. Multilevel degenerative disc disease. 2. Multilevel facet arthropathy. 3. No fracture. No acute osseous lesion. If symptoms and/or clinical suspicion for pathology persists, evaluation with MRI should be considered for further assessment. Dictated by: Diane Crawford MD, PhD on 10/29/2021 at 12:27 Approved by: Diane Crawford MD, PhD on 10/29/2021 at 12:28
--- NOTE | 2021-10-29 08:34 | DI.RAD.S_ITS ---
PROCEDURE: XR THORACIC SPINE 3V INDICATIONS: pain; s/p fall TECHNIQUE: 3 views of the thoracic spine were acquired. COMPARISON: None. FINDINGS: Bones: No fractures or dislocations. Partially visualized cervical spine fixation hardware. No suspicious bony lesions. 12 pairs of ribs are noted, and appear intact where visualized. Mild to moderate degenerative disc changes noted throughout the thoracic spine. Mild facet hypertrophy noted throughout the thoracic spine. Soft tissues: No paravertebral stripe thickening. Left chest wall cardiac pacer. Cholecystectomy clips. IMPRESSION: 1. Multilevel degenerative disc disease. 2. Multilevel facet arthropathy. 3. No fracture. No acute osseous lesion. If symptoms and/or clinical suspicion for pathology persists, evaluation with MRI should be considered for further assessment. Dictated by: Diane Crawford MD, PhD on 10/29/2021 at 12:26 Approved by: Diane Crawford MD, PhD on 10/29/2021 at 12:27
--- NOTE | 2021-10-29 08:35 | P.DS_ITS ---
History of Present Illness History of Present Illness Date Patient Seen: 10/29/21 Time Patient Seen: 08:35 Date of Onset of Symptoms: 10/24/21 Chief complaint: GLF Narrative: patient complains of back pain, lower since fall making it difficult for his to move and get out of bed. patient had large bm today and last night. patient has slight confusion and recognizes me Patient has not had problems urinating previously. Patient is tolerating p.o. without any difficulty. He is not having any nausea. Not having any significant dizziness. Review of systems: No chest pain. No blood in his stool. Blood sugars have been good. Otherwise 12 point review of systems has been negative Discharge Providers Provider Date of admission: 10/23/21 22:38 Discharge Date: 10/29/21 Primary care physician: Diane Howard MD Consults: 10/23/21 22:36 Consult to Orthopedic Surgery Stat Comment: Consulting Provider: Leslie Veras Reason for consultation: right inter troch Has provider been notified: Yes 10/23/21 23:46 Consult to Discharge Planning Routine Comment: 10/24/21 15:31 Consult to Discharge Planning Routine Comment: Consult to Physical Therapy Evaluate & Treat Comment: wbat Physician Instructions: Evaluate and Treat Consult to Respiratory Therapy Evaluate & Treat Comment: Physician Instructions: Evaluate and treat 10/24/21 16:19 Consult to Occupational Therapy Evaluate & Treat Comment: Physician Instructions: Evaluate and treat Discharge provider: Diane Howard MD Summary Hospital Course Discharge Diagnosis: 1. Status post right hip fracture, status post ORIF 2. Atrial fibrillation, chronic with well controlled rate 3. Type 2 diabetes stable on metformin and glipizide 4. Depression, stable 5. Hypothyroidism, stable 6. Chronic nausea stable 7. Acute on chronic anemia secondary to blood loss secondary to surgery and fall. Status post 2 units packed red blood cells and blood count is stable. Hospital Course: Patient was admitted to the hospital after a ground level fall and found to have sustained a right hip fracture. He was taken to the OR the following day. Patient with chronic anemia and this worsened with surgery. He received 2 units of packed red blood cells on hospital day 3. He had improvement in his overall dizziness and lightheadedness. He continued to be mildly confused throughout the stay. His atrial fibrillation was well controlled. His diabetes were well controlled. His electrolytes were stable. He did have hyponatremia which worsened and he was treated with normal saline. Patient was discharged to skilled care facility for PT, OT on hospital day 5. Status at Discharge Cognitive/behavioral status at discharge: at baseline, confused Functional status at discharge: bed bound Overall status at discharge: patient is not back to baseline Exam Vital Signs (past 8 hours): - 10/29/21 05:10 Temperature 97.6 F Pulse Rate 80 Respiratory Rate 19 Blood Pressure 146/80 H Pulse Oximetry 94 Oxygen Delivery Method Room Air Oxygen Flow Rate 0 Narrative Exam Narrative: Patient is alert and conversant. He recognizes me today and seems the most alert and less confused that he has been. However he does say that his was post to pick him up and shows a little bit of confusion. HEENT: Mucous membranes moist and pink Neck: Supple without adenopathy Chest: Clear to auscultation without wheezes rhonchi or crackles Cor: Irregular rhythm with well controlled rate Abdomen: Positive bowel sounds, soft, nontender, nondistended Extremities: No edema, pulses are 2+ bilateral dorsalis pedis and posterior tibialis Incision has dressing in place Back patient is tender bilateral lower lumbar spine Skin: No rashes Objective Labs Result Diagrams: 10/28/21 06:09 10/28/21 06:09 Labs: Laboratory Results - last 24 hr 10/28/21 19:24 SARS-CoV-2 (PCR) Negative [facility] Medical History Anxiety Arthritis CAD (coronary artery disease) DDD (degenerative disc disease), cervical Depression Diabetes Dyslipidemia Dysuria Elevated serum homocysteine level Heart attack History of angina History of CVA (cerebrovascular accident) History of dizziness History of esophageal reflux History of fatigue History of hematuria Impotence Lumbosacral radiculopathy at L5 Memory deficit Neuropathy of both feet Nocturia Nocturia Osteoarthritis Pacemaker (~2013) Paroxysmal A-fib 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 RBBB Renal insufficiency Sick sinus syndrome Sleep apnea (~2012) Spinal stenosis in cervical region Spinal stenosis of lumbar region Thyroid disease TIA (transient ischemic attack) Urinary retention Surgical History H/O laminectomy H/O shoulder surgery H/O thumb surgery History of appendectomy History of bladder surgery History of cardiac cath (~2012) History of cholecystectomy (~2012) History of cystoscopy History of fusion of cervical spine History of lumbar fusion History of tonsillectomy History of vasectomy S/P drug eluting coronary stent placement Status post right foot surgery Social History marital status: details: to Siri, lives in [place] household members: spouse lives independently: Yes caregiver/support person: No housing: house Smoking Status: Never smoker alcohol intake: current substance use type: does not use Discharge Assessment & Plan Assessment and Plan Assessment: 1. Status post right hip fracture, status post ORIF 2. Atrial fibrillation, chronic with well controlled rate 3. Type 2 diabetes stable on metformin and glipizide 4. Depression, stable 5. Hypothyroidism, stable 6. Chronic nausea stable 7. Acute on chronic anemia secondary to blood loss secondary to surgery and fal l. Status post 2 units packed red blood cells and blood count is stable. Plan of Treatment: Patient will be transferred to skilled care facility today. His Adams catheter to be left in place for transport with anticipation that this will be discontinued in the next 2 days. Patient will be continued on his same outpatient medications. He will be continued on Lovenox for a total of 4 weeks postop from his surgery to prevent DVT. Prescription was sent for this. He will be continued on his pain medication he has been using here in the hospital oxycodone. Patient will continue his same other outpatient medications which include metformin and glipizide for his diabetes. He will continue on the metoprolol and the Brilinta and the amiodarone for his atrial fibrillation. He will be continued on his levothyroxine. He will continue on he has omeprazole 40 mg twice daily. He will be continued on duloxetine 30 mg at bedtime He will be continued on his magnesium oxide. Patient will have lumbar x-ray today to rule out occult fracture. Discharge Plan Discharge Plan Patient Disposition: SNF Transfer to: [facility] Consult as needed: Dental, Hearing, Mental health, Podiatry and Vision Discharge orders & Medications Prescriptions: New oxycodone 5 mg Tablet 5 mg PO Q3HR PRN (Reason: Pain, Moderate (4-6)) Qty: 40 0RF enoxaparin [Lovenox] 40 mg/0.4 mL Syringe 40 mg SUBCUT DAILY Qty: 23 0RF Continued nitroglycerin 0.4 mg tablet, sublingual 0.4 mg SL Q5-15M PRN (Reason: chest pain) Qty: 30 2RF Rx Instructions: until response; do not exceed 3 doses per episode glipizide 2.5 mg Tablet Extended Release 24hr 2.5 mg PO DAILY 0RF levothyroxine 75 mcg tablet 75 mcg PO QAM 0RF atorvastatin 20 mg tablet 20 mg PO QAM 0RF Label Comments: pt only takes it in the morning duloxetine 30 mg capsule,delayed release(DR/EC) 30 mg PO BEDTIME 0RF ondansetron HCl 4 mg tablet 4 mg PO TID PRN (Reason: nausea) 0RF esomeprazole magnesium 40 mg capsule,delayed release(DR/EC) 40 mg PO BID 0RF magnesium oxide 400 mg (241.3 mg magnesium) Tablet 400 mg PO BID Qty: 180 3RF metoprolol succinate 25 mg tablet extended release 24 hr 25 mg PO DAILY 0RF metoprolol succinate 25 mg tablet extended release 24 hr 25 mg PO BEDTIME 0RF amiodarone 200 mg tablet 100 mg PO DAILY 0RF metformin 1,000 mg tablet 500 mg PO BID 0RF Brilinta 90 mg tablet 90 mg PO BID 0RF hydrocodone-acetaminophen 5-325 mg Tablet 1 tab PO Q6H PRN (Reason: Pain (Scale Score 4-6)) 0RF aspirin [Adult Low Dose Aspirin] 81 mg tablet,delayed release (DR/EC) 81 mg PO QAM 0RF Follow up/Referrals: Leslie Veras MD [Physician] - (10-14 days for postoperative visit) Diane Howard MD [Primary Care Provider] - Discharge Health Status Multidrug resistant organism: No MDRO Precautions: [place] Diet/Activity/Treatments Diet: Diet as Tolerated Liquid consistency: Normal/Thin Food texture: Regular Catheter: 2-way Adams Other treatments: -Weightbear as tolerated to the surgical extremity. -Encourage incentive spirometry. -Follow-up [facility] in 2 weeks for wound check, staple removal and repeat x-rays. Keep dressing clean dry and intact. -change dressing if saturated. [facility] Reason for rehabilitation: Post-operative therapy and Recovery r/t decondition Rehab type: Physical therapy and Occupational therapy Discharge Data Primary Care Provider: Diane Howard
[2021-10-29] MEDS: ACETAMINOPHEN 325 MG TABLET 975 MG PO (08:47)
[2021-10-29] MEDS: ASPIRIN EC 81 MG TABLET PO (08:47)
[2021-10-29] MEDS: PANTOPRAZOLE DR 40 MG TABLET PO (08:47)
[2021-10-29 08:48] VITALS: BP 142/75; PULSE 84
[2021-10-29] MEDS: METOPROLOL ER 25 MG TABLET PO (08:48)
[2021-10-29] MEDS: ENOXAPARIN 40 MG/0.4 ML SYRINGE SUBCUT (08:48)
[2021-10-29] MEDS: METFORMIN HCL 500 MG TABLET PO (08:51)
[2021-10-29] MEDS: AMIODARONE 200 MG TABLET 100 MG PO (08:51)
--- NOTE | 2021-10-29 08:51 | CM.DPC ---
DCP Discharge SNF Per MD, pt medically stable to d/c after xray this morning and no identified barriers to d/c. SW spoke to RN and F[employer]IE[employer]ECUTIVE OFFICER and pt can safely be hoyered into w/c for transport. RN obtained updated COVID swab yesterday afternoon. LUIS called [facility] admissions and updated on pt d/c and confirmed they can still transport around [phone] and aware pt to have xray this morning. it security specialist calling imaging to request pt be expedited on their list of xrays this morning due to upcoming d/c. LUIS called spouse Siri and left with update on d/c to [facility] today around 1100 and call back number if she has any concerns or questions. Plan: Patient to d/c to [facility] today around 1100 for ongoing rehab before safe return home with spouse. LUIS and CC Marilu to fax d/c packet to [facility] when available. Pepper Ortiz MSW
[2021-10-29 09:00] VITALS: BP 142/75; PULSE 84; RESP 16; TEMP 37.1; O2SAT 97
[2021-10-29 09:53] VITALS: PULSE 66
--- NOTE | 2021-10-29 10:03 | OT.IP.TRT ---
Current Diagnoses Acute posthemorrhagic anemia (10/23/21) Fracture of unspecified part of neck of right femur, initial encounter for closed fracture (10/23/21) Surgery Performed Operation Date: 10/24/21 13:30 Actual Procedures p ORIF Hip/Intramedullary Hip Screw(Right) - Leslie Veras MD Occupational Therapy Treatment Note M2 OT-IP Current Condition Start: 10/25/21 10:25 Freq: Status: Active Protocol: Document 10/25/21 10:25 [facility] (Rec: 10/25/21 10:45 [facility] [id number]) Occupational Therapy Current Condition Current Condition Evaluation Date 10/25/21 Treatment Diagnosis fall now s/p 2/6 R ORIF IM nailing Diagnosis Onset Date 10/23/21 Weight Bearing Status Weight Bearing Status Weight Bear as Tolerated M3 OT- IP Subjective and Pain Start: 10/25/21 10:25 Freq: Status: Active Protocol: Document 10/29/21 09:57 [facility] (Rec: 10/29/21 10:03 [facility] [id number]) OT- Subjective Occupational Therapy Visit Type Type Treatment Note Visit Start Time 09:45 Visit Stop Time 09:54 Total Visit Minutes 9 Occupational Therapy Visit Comments Patient Comments Pt agreed to do grooming while in bed. Pt's has concerns that pt is not thinking as well and appears more confused. Able to notify nursing of pt's concerns . Patient/Caregiver Goals To go to skilled rehab. OT Pain Assessment Pain When Pain Assessed At Rest Pain Present Pain Present Denied Pain M4 OT- IP ADL's Start: 10/25/21 10:25 Freq: Status: Active Protocol: Document 10/29/21 09:57 [facility] (Rec: 10/29/21 10:03 [facility] [id number]) OT [id number] Comments OT Self-Feeding Comments NOt at meal time. OT ADL-Grooming General Evaluation Grooming Ability Standby Assistance OT ADL-Oral Care Comments Oral Care Comments Not performed M5 OT- IP IADL's Start: 10/25/21 10:25 Freq: Status: Active Protocol: Document 10/25/21 10:25 [facility] (Rec: 10/25/21 10:45 [facility] [id number]) OT-Instrumental Activities of Daily Living Deficits IADL Deficits Identified Deficits Home Safety Awareness Awareness of Need for Assistance at Home Good Awareness Ability to Problem Solve Emergency Unable to Problem Solve Situations Medication Management Medication Management Caregiver Administers Money Management Money Management Caregiver Provides Assistance Meal Preparation Meal Preparation Caregiver Provides Assist Road Grader Operator Road Grader Operator Caregiver Provides Assist Driving Driving Comments Pt does not drive M6 OT- IP Functional Cognition Start: 10/25/21 10:25 Freq: Status: Active Protocol: Document 10/29/21 09:57 [facility] (Rec: 10/29/21 10:03 [facility] [id number]) Cognitive Factors Limiting Selfcare Function Cognitive Ability Level of Alertness Alert,Confusional State Cognitive Comments Cognitive Assessment Comments Pt able to follow commands however having a harder time to focus and stay on task. Pt easily distracted and asking the same questions over and over. M7 OT- IP Mobility and Balance Start: 10/25/21 10:25 Freq: Status: Active Protocol: Document 10/28/21 13:00 [facility] (Rec: 10/28/21 13:12 [facility] [id number]) OT- Bed Mobility Assessment Supine to Sit Supine to Sit Assist Maximum Assistance,2 Person Assistance OT-Transfer Assessment Sit to and From Stand Sit to and from Stand Maximum Assistance,2 Person Assistance Transfers Transfer Ability Maximum Assistance,Total Assistance,2 Person Assistance Technique Transfer Destination Bed,Chair Devices Transfer Assistive Devices Gait Belt,Front Wheeled Walker Comments Mobility Comments MAX A x2 to assist to get up from side lying to upright. MAXA x2 to stand to FWW and heavy assist MAX/total assist x2 to help hold pt upright as pt buckling with RLE and another person assist as well to guide his hips. At this time it would be much safer to use to use a adryan lift. To try sliding board tomorrow. OT- Gait Assessment Comments Gait Ability Comments Transfer only OT/PT as pt buckling. OT- Balance Assessment Sitting Balance and Reactions Static Sitting Balance Ability Good Standing Balance and Reactions Static Standing Balance Ability Poor Dynamic Standing Balance Ability Poor M8 OT- IP Objective Assessments Start: 10/25/21 10:25 Freq: Status: Active Protocol: Document 10/25/21 10:25 [facility] (Rec: 10/25/21 10:45 [facility] [id number]) OT Gross Range of Motion Upper Extremity Range of Motion Assessment Within Functional Limits OT Strength Upper Extremity Strength Assessment Within Functional Limits Comments Strength Comments 4+/5 OT- Coordination Assessment Upper Extremity Finger to Nose Test Within Functional Limits Finger Tapping Test Within Functional Limits Comments Coordination Comments Of note, pt is missing the tip of his L pointer finger and had his R thumb re attached both after seperate accidents with power saws. OT-Muscle Tone Assessment Muscle Tone WNL Yes OT Sensation Assessment Edema Edema Present Edema Comments R thigh M9 OT- IP Assessment and Plan Start: 10/25/21 10:25 Freq: Status: Active Protocol: Document 10/29/21 09:57 [facility] (Rec: 10/29/21 10:03 [facility] [id number]) OT Summary Assessment and Plan Potential Rehabilitation Potential Good Analytic Complexity at Evaluation Moderate Summary OT Impairments Pain,Balance,Functional Cognition,Functional Mobility, Grooming,Dressing,Toileting, Bathing,Toilet Transfers, Shower Transfers,Activity Tolerance Progress Towards Goals Slow Progress due to Medical Issues,Slow Progress due to Cognition Assessment Summary Able to talk to pt's regarding things to bring to skilled rehab and what to expect. Noted in agreement that pt seems to be a little more confused and having more difficulty to follow commands. Pt's nurse notified on pt's concerns. Pt when medically stable to go to skilled rehab. Goals Grooming Goal Independent Dressing Goal Minimal Assistance Toileting Goal Independent Bathing Goal Minimal Assistance Toilet Transfer Goal Contact Guard Assistance Shower Transfer Goal Minimal Assistance Days to Meet Goals 25 Frequency of Treatment Frequency Of Treatment Once a Day Treatment Plan OT Treatment Plan ADL Training,Functional Cognition Training,Functional Mobility,Patient/Family Education,Discharge Planning Discharge Recommendations OT Discharge Recommendations SNF Rehab Transportation Needs at Discharge Wheelchair/Cabulance
--- NOTE | 2021-10-29 10:40 | PC.NURSE ---
Addendum entered by Grazyna Flanagan R.N. 10/29/21 11:31: [facility] here to transport ' Pt adryan lift to W/C Packet given to [facility] d/C in stable condition. Original Note: Pt alert/ confused as to place/date. Lungs clear, SpO2 97% RA Tele showing A-fib/BBB per ICU staff. Pt beasley cath patent clear urine. HL intact/patent. Planning discharge to [facility]
[2021-10-29] MEDS: SODIUM CHLORIDE 0.9% FLUSH 10 ML IV (10:45)
== END 2021-10-29 11:20 | DRG 481 ==
LOC: ED 22:36 → AC 22:39
PROVIDERS: Orthopaedic Surgery Foot and Ankle Surgery; Admitting Provider Family Medicine; Emergency Provider Emergency Medicine; PCP Family Medicine; Referring Provider Emergency Medicine; Visit Provider Family Medicine
PROC: 0QS606Z Reposition Right Upper Femur with Intramedullary Internal Fixation Device, Open Approach (ICD-10-PCS; CPT 27245; principal; 2021-10-24 13:30)
DX: S72.141A Displaced intertrochanteric fracture of right femur, initial encounter for closed fracture (principal); E87.1 Hypo-osmolality and hyponatremia; D62 Acute posthemorrhagic anemia; I48.20 Chronic atrial fibrillation, unspecified; E83.42 Hypomagnesemia; I25.10 Atherosclerotic heart disease of native coronary artery without angina pectoris; E03.9 Hypothyroidism, unspecified; F32.A Depression, unspecified; E11.9 Type 2 diabetes mellitus without complications; R11.0 Nausea; E78.5 Hyperlipidemia, unspecified; M54.9 Dorsalgia, unspecified; W18.30XA Fall on same level, unspecified, initial encounter; Z79.84 Long term (current) use of oral hypoglycemic drugs; Z79.01 Long term (current) use of anticoagulants; Z95.0 Presence of cardiac pacemaker; Z20.822 Contact with and (suspected) exposure to COVID-19; Z66 Do not resuscitate; Z95.5 Presence of coronary angioplasty implant and graft
CPT/HCPCS: 36415; 36430; 70450; 71045; 72070; 72100; 72125; 73080; 73502; 76000; 80048; 80053; 82550; 82962; 83690; 83735; 83880; 84484; 85025; 86850; 86900; 86901; 87635; 93005; 93010; 96374; 96376; 97110; 97162; 97166; 97530; 97535; 99284; 99285; C9803; P9016; J0171; J0690; J1650; J1815; J1940; J2270; J2405; J3010

== ENCOUNTER → 2022-02-17 12:21 | Outpatient (CLI) | payer MEDICARE, OTHER, SELFPAY ==
[2021-10-23 22:54] VITALS: BMI 24.3
--- NOTE | 2022-02-17 | DI.CT.S_ITS ---
PROCEDURE: CT LE RT WO CON INDICATIONS: Pain in right thigh TECHNIQUE: Noncontrast 3 mm axial sections acquired through the bony pelvis. Additional 3 mm axial sections acquired through the symptomatic hip joint, with coronal and sagittal reformats. COMPARISON: [facility], CR, XR FEMUR 2+ VIEWS RIGHT, 02/03/2022, 12:08. [facility], CR, XR HIP W PEL IF DONE RT 2V, 10/24/2021, 15:33. FINDINGS: Image quality: Excellent. Bones: Patient is status post internal fixation of right proximal femur for intertrochanteric fracture. Right hip alignment is anatomic. No gross hardware loosening or failure. Healing at patient's known intertrochanteric fracture site is seen. No evidence of new fracture or dislocation. Moderate right hip joint osteoarthritic changes are seen, no evidence of avascular necrosis of femoral head. Post fusion changes in visualized lower lumbar spine are seen at L4-5 and L5-S1 levels. No acute vertebral body compression fracture. Soft tissues: No significant right hip joint effusion is seen. No abnormal soft tissue calcifications. No pelvic free fluid or free air. Bladder wall thickness is normal. Enlarged prostate gland with mass effect on floor of urinary bladder is seen. IMPRESSION: 1. Post ORIF changes in right proximal femur with healing intertrochanteric fracture. No evidence of hardware complication. No new fracture or dislocation. 2. Moderate right hip joint osteoarthritis. No evidence of avascular necrosis of femoral head. 3. No gross right hip or pelvic soft tissue abnormality. Dictated by: Randall Lora M.D. on 02/17/2022 at 16:40 Approved by: Randall Lora M.D. on 02/17/2022 at 16:46
== END ==
PROVIDERS: PCP Family Medicine; Referring Provider Orthopaedic Surgery Foot and Ankle Surgery; Visit Provider Orthopaedic Surgery Foot and Ankle Surgery
DX: S72.141D Displaced intertrochanteric fracture of right femur, subsequent encounter for closed fracture with routine healing (principal); M16.11 Unilateral primary osteoarthritis, right hip; M79.651 Pain in right thigh; X58.XXXD Exposure to other specified factors, subsequent encounter
CPT/HCPCS: 73700

== ENCOUNTER → 2022-04-08 10:34 | Outpatient (CLI) | payer MEDICARE, OTHER, SELFPAY ==
[2021-10-23 22:54] VITALS: BMI 24.3
== END ==
PROVIDERS: PCP Family Medicine; Referring Provider Orthopaedic Surgery Foot and Ankle Surgery; Visit Provider Orthopaedic Surgery Foot and Ankle Surgery
DX: M85.852 Other specified disorders of bone density and structure, left thigh (principal); Z13.820 Encounter for screening for osteoporosis
CPT/HCPCS: 77080

== ENCOUNTER 2022-11-15 10:54 | Emergency (ER) | payer MEDICARE, OTHER, SELFPAY ==
[2021-10-23 22:54] VITALS: BMI 24.3
[2022-11-15] VITALS (9 sets, daily range): BP systolic 135–172; BP diastolic 81–98; PULSE 71–88; RESP 18–20; TEMP 36.5; O2SAT 96–99; BMI 25.8
--- NOTE | 2022-11-15 10:56 | DI.RAD.S_ITS ---
PROCEDURE: XR HIP W PEL IF DONE LT 2V INDICATIONS: fall TECHNIQUE: 2 views of the hip were acquired. COMPARISON: [facility], CR, XR HIP W PEL IF DONE RT 2V, 10/24/2021, 15:33. FINDINGS: Bones: Right hip intramedullary tisha and compression screws in good position. No grossly displaced left proximal femoral fracture. Femoral head is appropriate contour. Generalized osseous demineralization. Lower lumbar spine instrumentation. Soft tissues: No suspicious soft tissue calcifications or masses. IMPRESSION: No grossly displaced left femoral neck fracture. Consider follow-up CT if clinical concern persists. Stable instrumented healing right proximal femoral fracture Approved by: Gilberto Perez M.D. on 11/15/2022 at 10:45
--- NOTE | 2022-11-15 11:49 | DI.CT.S_ITS ---
PROCEDURE: CT LUMBAR SPINE WO CON INDICATIONS: Polytrauma,fall TECHNIQUE: Noncontrast 3 mm thick sections acquired from the T12 level to the sacrum. Sagittal and coronal reformats were constructed. For radiation dose reduction, the following was used: automated exposure control. COMPARISON: [facility], CT, L-SPINE WITHOUT CONTRAST, 06/16/2015, 10:00. FINDINGS: Image quality: Excellent. Bones: There is normal bony alignment. No acute vertebral body compression fractures. No suspicious lytic or blastic bony lesions. No pars defects. Generalized decreased osseous mineralization present. Atherosclerotic vascular calcification associated with distal aortic ectasia without roger aneurysm, stable. At the disc levels, degenerative disc disease and arthropathy associated with moderate central stenosis L2-3 and L3-4. L4-5 and L5-S1 instrumented interbody fusion as well healed and unchanged. No hardware failure or loosening. IMPRESSION: 1. Osteopenia without evidence of fracture or traumatic malalignment. 2. Multilevel degenerative disc disease and arthropathy results in varying degrees of central and foraminal stenosis including at least moderate central stenosis L2-3 and L3-4. 3. L4-5 and L5-S1 instrumented interbody fusion without hardware failure or loosening Approved by: Gilberto Perez M.D. on 11/15/2022 at 11:57
--- NOTE | 2022-11-15 11:49 | DI.CT.S_ITS ---
PROCEDURE: CT PEL WO CON INDICATIONS: Polytrauma,fall TECHNIQUE: Noncontrast 3 mm axial sections acquired through the bony pelvis, with coronal and sagittal reformatting. COMPARISON: None. FINDINGS: Image quality: Excellent. Bones: Osteoporosis by Hounsfield units criteria. No displaced fracture. Partially visualized surgical fusion hardware of the lumbosacral spine. Right hip intramedullary tisha and intertrochanteric screw fixation, without hardware complication. Soft tissues: Visualized intrapelvic contents are unremarkable. No free fluid. Trace, fat containing inguinal hernias. IMPRESSION: No displaced fractures, although osteoporosis may limit visualization of a subtle nondisplaced fracture. If there remains a high clinical concern, MRI can be considered. Dictated by: Moris Eaton M.D. on 11/15/2022 at 12:21 Approved by: Moris Eaton M.D. on 11/15/2022 at 12:29
--- NOTE | 2022-11-15 12:11 | ED.FALL ---
HPI - Fall General Chief Complaint: Trauma Stated Complaint: glf on thinners, left hip pain Time Seen by Provider: 11/15/22 11:41 Source: patient Mode of arrival: EMS History of Present Illness HPI Narrative: Patient brought in by ambulance from home for complains low back pain. Patient is on blood thinner for atrial fibrillation. Patient is on Brilinta, he states he was trying to get out of bed to get a chair to bring to his bathroom to shave. This is his routine. However this morning he was sitting at the edge of the bed, he lost his balance and fell straight down to the floor landing on his buttock. Does not not not complain of hip pain or pelvis pain. He states it hurts in his lower back. Patient has had lower back surgeries in the past. Denies any bowel or bladder incontinence. No numbness or tingling to the feet or legs. Related Data Home Medications Medication Instructions Recorded Confirmed levothyroxine 75 mcg tablet 75 mcg PO QAM 08/27/18 10/23/21 aspirin 81 mg tablet,delayed 81 mg PO QAM 12/24/18 10/23/21 release (Adult Low Dose Aspirin) atorvastatin 20 mg tablet 20 mg PO QAM 09/23/20 10/23/21 duloxetine 30 mg capsule,delayed 30 mg PO BEDTIME 09/23/20 10/23/21 release esomeprazole magnesium 40 mg 40 mg PO BID 09/23/20 10/23/21 capsule,delayed release ondansetron HCl 4 mg tablet 4 mg PO TID PRN nausea 09/23/20 10/23/21 glipizide 2.5 mg tablet, extended 2.5 mg PO DAILY 01/14/21 10/23/21 release 24 hr metoprolol succinate 25 mg 25 mg PO BEDTIME 03/14/21 10/23/21 tablet,extended release 24 hr metoprolol succinate 25 mg 25 mg PO DAILY 03/14/21 10/23/21 tablet,extended release 24 hr amiodarone 200 mg tablet 100 mg PO DAILY 10/23/21 10/23/21 hydrocodone 5 mg-acetaminophen 325 1 tab PO Q6H PRN Pain (Scale Score 10/23/21 10/23/21 mg tablet 4-6) metformin 1,000 mg tablet 500 mg PO BID 10/23/21 10/23/21 ticagrelor 90 mg tablet (Brilinta) 90 mg PO BID 10/23/21 10/23/21 Previous Rx's Medication Instructions Recorded nitroglycerin 0.4 mg sublingual 0.4 mg sublingual Q5-15M PRN chest 06/29/18 tablet pain #30 tabs magnesium oxide 400 mg (241.3 mg 400 mg PO BID #180 tabs 10/08/20 magnesium) tablet enoxaparin 40 mg/0.4 mL 40 mg (0.4 mL) SUBCUT DAILY #23 mL 10/29/21 subcutaneous syringe (Lovenox) oxycodone 5 mg tablet 5 mg PO Q3HR PRN Pain, Moderate 10/29/21 (4-6) #40 tabs Allergies Allergy/AdvReac Type Severity Reaction Status Date / Time Kxtotla-BNF-[id number] Reductase Allergy Intermediate MUSCLE PAIN Verified 11/15/22 11:18 Inhibitor [[id number] REDUCTASE INHIBITOR] piroxicam [PIROXICAM] Allergy Mild NAUSEA, Verified 11/15/22 11:18 VOMITING dabigatran etexilate AdvReac Hematuria Verified 11/15/22 11:18 Review of Systems Review of Systems Narrative: GENERAL: negative chills, fatigue, malaise, fever, sweats. HEENT: negative sinus pain, ear pain, sore throat RESPIRATORY: negative dyspnea, cough CARDIOVASCULAR: negative chest pain, palpitations GASTROINTESTINAL: negative nausea, vomiting, abdominal pain : negative dysuria, frequency, hematuria MUSCULOSKELETAL: negative muscle or bony pain, positive back pain SKIN: negative rash, skin lesions NEUROLOGIC: negative weakness, numbness ROS Unobtainable: All systems reviewed & are unremarkable except as noted in HPI and below Patient History Medical History Anxiety Arthritis CAD (coronary artery disease) DDD (degenerative disc disease), cervical Depression Diabetes Dyslipidemia Dysuria Elevated serum homocysteine level Heart attack History of angina History of CVA (cerebrovascular accident) History of dizziness History of esophageal reflux History of fatigue History of hematuria Impotence Lumbosacral radiculopathy at L5 Memory deficit Neuropathy of both feet Nocturia Nocturia Osteoarthritis Pacemaker (~2013) Paroxysmal A-fib 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 RBBB Renal insufficiency Sick sinus syndrome Sleep apnea (~2012) Spinal stenosis in cervical region Spinal stenosis of lumbar region Thyroid disease TIA (transient ischemic attack) Urinary retention Surgical History H/O laminectomy H/O shoulder surgery H/O thumb surgery History of appendectomy History of bladder surgery History of cardiac cath (~2012) History of cholecystectomy (~2012) History of cystoscopy History of fusion of cervical spine History of lumbar fusion History of tonsillectomy History of vasectomy S/P drug eluting coronary stent placement Status post right foot surgery Social History marital status: details: aisha Horner, lives in [place] household members: spouse lives independently: Yes caregiver/support person: No housing: house Smoking Status: Never smoker alcohol intake: current substance use type: does not use Smoking Status: Never smoker alcohol intake frequency: holidays/special occasions only Substance Use Type: does not use Exam Narrative Exam Narrative: GENERAL: in no distress, not toxic not dyspneic HEAD: Normocephalic. EYES: Pupils equal round ENT: Mucous membranes moist. NECK: Trachea midline. CARDIOVASCULAR: Regular rate and rhythm without murmurs RESPIRATORY: Clear to auscultation. Breath sounds equal bilaterally. No wheezes, rales, or rhonchi. GASTROINTESTINAL: Abdomen soft, non-tender EXTREMITIES: No gross deformities. Left hip nontender. There is no shortening or rotation of the legs. Patient able to fully actively flex and extend at the hip without any pain or discomfort of the hip or pelvis. BACK: No flank tenderness. There is midline tenderness at L1. However no step-off. Patient log rolled forward exam. No bruising seen on the back. NEURO: AOx4. SKIN: Warm and dry PSYCH: Not anxious, is cooperative Initial Vital Signs Initial Vital Signs: Vital Signs Temperature 97.7 F 11/15/22 10:59 Pulse Rate 88 11/15/22 10:59 Respiratory Rate 18 11/15/22 10:59 Blood Pressure 157/84 H 11/15/22 10:59 Pulse Oximetry 99 11/15/22 10:59 Oxygen Delivery Method 11/15/22 10:59 Course Orders Ordered: ED Orders 11/15/22 10:56 XR hip w pel if done LT 2V Stat 11/15/22 11:49 CT lumbar spine wo con Stat CT pelvis wo con Stat Discontinued Medications Hydrocodone Bitart/Acetaminophen (Hydrocodone/Acet 5/325 Tablet) 1 tab PO NOW ONE Stop: 11/15/22 13:26 Last Admin: 11/15/22 13:35 Dose: 1 tab Documented By: RB Ondansetron HCl (Ondansetron 4 Mg Odt) 4 mg SL NOW ONE Stop: 11/15/22 13:26 Last Admin: 11/15/22 13:34 Dose: 4 mg Documented By: RB Vital Signs Vital signs: Vital Signs - 8 hr 11/15/22 10:59 11/15/22 11:00 11/15/22 11:29 Temperature 97.7 F Pulse Rate 88 86 Respiratory Rate 18 20 Blood Pressure 157/84 H Pulse Oximetry 99 98 Oxygen Delivery Method Room Air Room Air 11/15/22 11:30 11/15/22 12:06 11/15/22 12:07 Temperature Pulse Rate 86 84 Respiratory Rate Blood Pressure 135/81 Pulse Oximetry 97 98 Oxygen Delivery Method 11/15/22 12:07 11/15/22 12:30 11/15/22 12:30 Temperature Pulse Rate 85 87 Respiratory Rate Blood Pressure 144/87 H Pulse Oximetry 97 96 Oxygen Delivery Method 11/15/22 13:00 11/15/22 13:00 11/15/22 13:30 Temperature Pulse Rate 71 Respiratory Rate Blood Pressure 141/88 H 154/98 H Pulse Oximetry 98 Oxygen Delivery Method 11/15/22 13:30 11/15/22 13:32 11/15/22 13:32 Temperature Pulse Rate 86 77 Respiratory Rate Blood Pressure 172/96 H Pulse Oximetry 97 97 Oxygen Delivery Method MDM - Fall Imaging Data CT lumbar spine: Radiologist's Impression: [address] [address] [address] Scan Report Signed Patient: Sotero Kasper MR#: [id number] : 1935 Acct:[id number] Age/Sex: 87 / M Date of Service: 11/15/22 Loc: ED Accession Number: [id number] ?? Procedure: CT lumbar spine wo con Ordering Provider: Mayur Castelan MD PROCEDURE:? CT LUMBAR SPINE WO CON ? INDICATIONS:? Polytrauma,fall ? TECHNIQUE:? Noncontrast 3 mm thick sections acquired from the T12 level to the sacrum.? Sagittal and coronal reformats were constructed.? For radiation dose reduction, the following was used:? automated exposure control.? ? COMPARISON:? [facility], CT, L-SPINE WITHOUT CONTRAST, 06/16/2015, 10:00. ? FINDINGS:? Image quality:? Excellent.? ? Bones:? There is normal bony alignment.? No acute vertebral body compression fractures.? No suspicious lytic or blastic bony lesions.? No pars defects.? ? Generalized decreased osseous mineralization present.? Atherosclerotic vascular calcification associated with distal aortic ectasia without roger aneurysm, stable. ? At the disc levels, degenerative disc disease and arthropathy associated with moderate central stenosis L2-3 and L3-4.? L4-5 and L5-S1 instrumented interbody fusion as well healed and unchanged.? No hardware failure or loosening. ? ? IMPRESSION:? ? 1. Osteopenia without evidence of fracture or traumatic malalignment.? ? 2. Multilevel degenerative disc disease and arthropathy results in varying degrees of central and foraminal stenosis including at least moderate central stenosis L2-3 and L3-4.? ? 3. L4-5 and L5-S1 instrumented interbody fusion without hardware failure or loosening ? ? Approved by: Gilberto Perez M.D. on 11/15/2022 at 11:57? CT pelvis: Radiologist's Impression: [place] [address] CT Scan Report Signed Patient: Sotero Kasper MR#: [id number] : 1935 Acct:[id number] Age/Sex: 87 / M Date of Service: 11/15/22 Loc: ED Accession Number: [id number] ?? Procedure: CT pelvis wo con Ordering Provider: Mayur Castelan MD PROCEDURE:? CT PEL WO CON ? INDICATIONS:? Polytrauma,fall ? TECHNIQUE:? Noncontrast 3 mm axial sections acquired through the bony pelvis, with coronal and sagittal reformatting.? ? COMPARISON:? None. ? FINDINGS:? Image quality:? Excellent.? ? Bones:? Osteoporosis by Hounsfield units criteria.? No displaced fracture.? Partially visualized surgical fusion hardware of the lumbosacral spine.? Right hip intramedullary tisha and intertrochanteric screw fixation, without hardware complication. ? ? Soft tissues:? Visualized intrapelvic contents are unremarkable.? No free fluid.? Trace, fat containing inguinal hernias. ? ? IMPRESSION:? No displaced fractures, although osteoporosis may limit visualization of a subtle nondisplaced fracture.? If there remains a high clinical concern, MRI can be considered. ? ? Dictated by: Moris Eaton M.D. on 11/15/2022 at 12:21 ? ? Approved by: Moris Eaton M.D. on 11/15/2022 at 12:29 ? [facility] Narrative Medical decision making narrative: Patient brought in by ambulance from home for complains low back pain. Patient is on blood thinner for atrial fibrillation. Patient is on Brilinta, he states he was trying to get out of bed to get a chair to bring to his bathroom to shave. This is his routine. However this morning he was sitting at the edge of the bed, he lost his balance and fell straight down to the floor landing on his buttock. Does not not not complain of hip pain or pelvis pain. He states it hurts in his lower back. Patient has had lower back surgeries in the past. Denies any bowel or bladder incontinence. No numbness or tingling to the feet or legs. After history and exam CT pelvis CT lumbar spine x-ray left hip ordered [facility] CC: Low back pain Complicating co-morbidities: Patient on blood thinners history of right hip fracture Data collected from: EMS/patient/ Medical records reviewed: No recent visit for fall Differential considered: Includes but not limited to lumbar fracture/bulge disc Exam documented above, pertinent findings include: Tender spine at L1 Imaging studies independently reviewed: CT pelvis CT lumbar spine no acute process Treatments: [place]/Zofran Re-evaluations: 1:30 p.m.. Reviewed results with patient and . At this time imaging results are reassuring. He understands he will be sore for the next few days. It will take time to get better. Instructed him to continue mobility and not to lay in bed all the time. Do try to keep mobilizing/ambulating. Return precautions reviewed with him. They desire discharge home. is driving. Discussion: Appropriate for discharge home. Imaging and exam reassuring. Return precautions reviewed with patient and . They desire discharge home. No neuro deficits. Nontoxic at discharge. Diagnosis: Lumbar strain/lumbar contusion Discharge Plan Departure Patient Disposition: Home Clinical Impression: Lumbar contusion Instructions: DI for Trauma, DI for Back Strain or Sprain Activity Restrictions/Additional Instructions: No driving operating machinery today. May continue Tylenol for pain at home. May use warm packs to the back as needed 20 minutes at a time for pain. See family doctor this week for re-evaluation. Return if worse if any questions or concerns. You may continue your home medications. Prescriptions: No Action nitroglycerin 0.4 mg tablet, sublingual 0.4 mg SL Q5-15M PRN (Reason: chest pain) Qty: 30 2RF Rx Instructions: until response; do not exceed 3 doses per episode glipizide 2.5 mg Tablet Extended Release 24hr 2.5 mg PO DAILY levothyroxine 75 mcg tablet 75 mcg PO QAM atorvastatin 20 mg tablet 20 mg PO QAM Label Comments: pt only takes it in the morning duloxetine 30 mg capsule,delayed release(DR/EC) 30 mg PO BEDTIME ondansetron HCl 4 mg tablet 4 mg PO TID PRN (Reason: nausea) esomeprazole magnesium 40 mg capsule,delayed release(DR/EC) 40 mg PO BID magnesium oxide 400 mg (241.3 mg magnesium) Tablet 400 mg PO BID Qty: 180 3RF metoprolol succinate 25 mg tablet extended release 24 hr 25 mg PO DAILY metoprolol succinate 25 mg tablet extended release 24 hr 25 mg PO BEDTIME amiodarone 200 mg tablet 100 mg PO DAILY metformin 1,000 mg tablet 500 mg PO BID Brilinta 90 mg tablet 90 mg PO BID hydrocodone-acetaminophen 5-325 mg Tablet 1 tab PO Q6H PRN (Reason: Pain (Scale Score 4-6)) oxycodone 5 mg Tablet 5 mg PO Q3HR PRN (Reason: Pain, Moderate (4-6)) Qty: 40 0RF enoxaparin [Lovenox] 40 mg/0.4 mL Syringe 40 mg SUBCUT DAILY Qty: 23 0RF aspirin [Adult Low Dose Aspirin] 81 mg tablet,delayed release (DR/EC) 81 mg PO QAM Referrals: Diane Howard MD [Primary Care Provider] - Stand Alone Forms: Patient Portal/API
[2022-11-15] MEDS: ONDANSETRON 4 MG ODT SL (13:34)
[2022-11-15] MEDS: HYDROCODONE/ACET 5/325 TABLET 1 TAB PO (13:35)
== END 2022-11-15 13:39 | disposition home or self-care (01) ==
PROVIDERS: Emergency Provider Emergency Medicine; PCP Family Medicine
DX: S30.0XXA Contusion of lower back and pelvis, initial encounter (principal); W06.XXXA Fall from bed, initial encounter; Z79.899 Other long term (current) drug therapy; Z79.01 Long term (current) use of anticoagulants
CPT/HCPCS: 72131; 72192; 73502; 99284

== ENCOUNTER → 2022-11-28 11:13 | Outpatient (CLI) | payer MEDICARE, OTHER, SELFPAY ==
[2021-10-23 22:54] VITALS: BMI 24.3
--- NOTE | 2022-11-28 11:16 | DI.CT.S_ITS ---
PROCEDURE: CT LUMBAR SPINE W CON INDICATIONS: DORSALGIA, UNSPECIFIED LAB TECHNIQUE: After the administration of intravenous Isovue contrast, 3 mm thick sections acquired through the levels of interest. Sagittal and coronal reformats were then constructed. For radiation dose reduction, the following was used: automated exposure control. COMPARISON: [facility], CT, CT LUMBAR SPINE WO CON, 11/15/2022, 11:52. FINDINGS: Image quality: Excellent. Bones: Again noted are post fusion changes in lower lumbar spine at L4 through S1 levels. Straightening of normal lumbar lordosis is seen. No evidence of hardware loosening or failure. No acute vertebral body compression fractures. No pars defects. Loss of disc height and degenerative endplate changes are again noted throughout visualized lower thoracic spine and lumbar spine with dorsal disc osteophyte complex formation at L1-2 through L3-4 levels causing [id number] central canal stenosis and right worse than left bilateral neural foraminal narrowing unchanged from prior study. Soft tissues: There is no abnormal paraspinous soft tissue enhancement. No epidural abscess collection. No area of abnormal contrast enhancement within the spinal canal. Moderate atherosclerotic calcifications throughout abdominal aorta is seen with ectasias of infrarenal abdominal aorta measures up to 2.4 cm in largest AP diameter. No abdominal aortic aneurysm. Bilateral kidneys show normal enhancement. No hydronephrosis or hydroureter. IMPRESSION: 1. Stable postsurgical changes from prior lower lumbar spine fusion at L4-5 and L5-S1 levels. No evidence of hardware loosening or failure. No abnormal paraspinous soft tissue abnormalities. No area of abnormal soft tissue enhancement. No abnormal enhancement is seen within spinal canal. 2. Degenerative disc disease throughout lumbar spine causing [id number] central canal stenosis and bilateral neural foraminal narrowing as above. No acute vertebral body compression fracture. 3. Atherosclerotic disease in abdominal aorta with mild ectasia of infrarenal abdominal aorta. No abdominal aortic aneurysm or dissection. Dictated by: Randall Lora M.D. on 11/28/2022 at 15:05 Approved by: Randall Lora M.D. on 11/28/2022 at 15:10
--- NOTE | 2022-11-28 11:16 | DI.CT.S_ITS ---
PROCEDURE: CT PELVIS W CON INDICATIONS: DORSALGIA, UNSPECIFIED LAB TECHNIQUE: After the administration of intravenous contrast, 5 mm thick sections acquired from the iliac crests to the symphysis. 5 mm coronal and sagittal reformats were acquired. For radiation dose reduction, the following was used: automated exposure control, adjustment of mA and/or kV according to patient size. COMPARISON: None. FINDINGS: Image quality: Excellent. Peritoneum and bowel: Mild fecal stasis throughout the colon is seen. No evidence of bowel obstruction or abnormal bowel wall thickening. No mesenteric fat stranding. No free fluid or free air. Genitourinary: Bladder wall thickness is normal. Nodes and vessels: No iliac, pelvic, or inguinal adenopathy by size criteria. Iliac vessels demonstrate normal size and enhancement. Bones: Prior ORIF of right proximal femur is seen with beam hardening artifacts. No gross hardware loosening or failure. No acute fracture or dislocation. Osteoarthritic changes are noted in bilateral hip joints with joint space narrowing, subchondral sclerosis and marginal osteophyte formation worse on the right side. No evidence of avascular necrosis of femoral head. Bilateral sacroiliac joint osteoarthritic changes also noted with joint space narrowing and subchondral sclerosis. No bony erosive changes are noted. Partial ankylosis in bilateral sacroiliac joints are seen. Postfusion changes in visualized lower lumbar spine is also noted. No suspicious intraosseous lesion. Osteopenia is seen. No gross sacral insufficiency fracture. Miscellaneous: Small bilateral inguinal hernia are seen containing fat only. IMPRESSION: 1. Osteoarthritic changes in bilateral hip joints slightly worse on the right side. No acute pelvic or hip fracture. Prior ORIF of right proximal femur. No gross hardware loosening or failure. No evidence of avascular necrosis of femoral head. 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 No bony erosive changes. Diffuse osteopenia. No evidence of sacral insufficiency fracture. 2. No gross pelvic soft tissue abnormalities. No free fluid or free air. No abnormal soft tissue calcifications. Dictated by: Randall Lora M.D. on 11/28/2022 at 15:12 Approved by: Randall Lora M.D. on 11/28/2022 at 15:26
[2022-11-28 12:18] LABS: Alanine Aminotransferase 29 IU/L (<50); Albumin 4.3 g/dL (3.5-5.0); Albumin Globulin Ratio 1.3 (1.0-2.8); Alkaline Phosphatase 149 U/L (38-126); Aspartate Aminotransferase 35 IU/L (17-59); BUN Creatinine Ratio 16.4 (6-22); Blood Urea Nitrogen 27 mg/dL (9-20); Calcium 9.2 mg/dL (8.4-10.2); Carbon Dioxide 25 mmol/L (22-32); Chloride 97 mmol/L (98-107); Estimated Glomerular Filt Rate 40 mL/min (>60); Globulin 3.3 g/dL (1.7-4.1); Glucose 189 mg/dL (80-110); HEMOLYSIS < 15 (0-50); Potassium 4.9 mmol/L (3.4-5.1); Sodium 133 mmol/L (137-145); Total Protein 7.6 g/dL (6.3-8.2)
== END ==
PROVIDERS: PCP Family Medicine; Referring Provider Family Medicine; Visit Provider Family Medicine
DX: M51.36 Other intervertebral disc degeneration, lumbar region (principal); M48.061 Spinal stenosis, lumbar region without neurogenic claudication; I77.811 Abdominal aortic ectasia; M46.1 Sacroiliitis, not elsewhere classified; M85.88 Other specified disorders of bone density and structure, other site; I70.0 Atherosclerosis of aorta; M54.9 Dorsalgia, unspecified; Z98.1 Arthrodesis status
CPT/HCPCS: 36415; 72132; 72193; 80053; Q9967

== ENCOUNTER 2022-11-30 04:55 | Emergency (ER) | payer MEDICARE, OTHER, SELFPAY ==
[2021-10-23 22:54] VITALS: BMI 24.3
[2022-11-30] VITALS (14 sets, daily range): BP systolic 113–173; BP diastolic 63–104; PULSE 67–89; RESP 14–18; TEMP 36.7; O2SAT 96–98; BMI 24.6
--- NOTE | 2022-11-30 05:00 | DI.CT.S_ITS ---
PROCEDURE: CT HEAD/BRAIN WO CON INDICATIONS: fall TECHNIQUE: Noncontrast 4.5 mm thick angled axial sections acquired from the foramen magnum to the vertex, with coronal and sagittal reformats. For radiation dose reduction, the following was used: automated exposure control, adjustment of mA and/or kV according to patient size. COMPARISON: [facility], CT, CT HEAD/BRAIN WO CON, 10/23/2021, 20:52. FINDINGS: Image quality: Excellent. CSF spaces: Basal cisterns are patent. No extra-axial fluid collections. The ventricles are symmetric in size and shape. Brain: No intracranial bleeds or masses. There is cerebral volume loss for age, with resultant ventricular and sulcal prominence. There are moderate to severe periventricular and deep white matter chronic small vessel ischemic changes. There is intracranial internal carotid artery atherosclerosis. Skull and face: There is a partially imaged comminuted lateral wall fracture of the right maxillary sinus with associated air-fluid level. Sinuses: Air-fluid level in the right maxillary sinus associated with comminuted lateral wall fracture. Minimal air-fluid level in the left maxillary sinus. IMPRESSION: 1. Partially imaged comminuted lateral right maxillary sinus wall fracture with associated right maxillary sinus air-fluid level. 2. Minimal left maxillary sinus fluid. 3. No evidence of acute intracranial abnormality. 4. Age-related volume loss and moderate to severe small vessel ischemic change. Comment: Recommend facial bone CT. Comment: Final report is concordant with preliminary interpretation provided by [facility]. Dictated by: Ru Cheatham M.D. on 11/30/2022 at 8:11 Approved by: Ru Cheatham M.D. on 11/30/2022 at 8:13
--- NOTE | 2022-11-30 06:27 | ED.FALL ---
HPI - Fall <Arlette Jenkins, DO - Last Filed: 12/01/22 02:09> General Chief Complaint: Fall Stated Complaint: GLF Time Seen by Provider: 11/30/22 06:27 Source: EMS Mode of arrival: EMS History of Present Illness HPI Narrative: Patient is an 87-year-old male with history of CVA, coronary artery disease, diabetes presenting today after a fall. Neither he or his know exactly how he fell but he does fall regularly. Was seen and evaluated here 11/15/2022 after a fall at that time he fell onto his buttock. Neither he nor his report being ill. He denies any chest pain or palpitations. He has no neck pain. He has injury the left side of parietal area. Small amount of bleeding. He reports no other injuries. He is unsure if he had any chest pain or palpitations. Does not sound like he has been ill. Very difficult to get history from either person. Related Data Home Medications Medication Instructions Recorded Confirmed levothyroxine 75 mcg tablet 75 mcg PO QAM 08/27/18 10/23/21 aspirin 81 mg tablet,delayed 81 mg PO QAM 12/24/18 10/23/21 release (Adult Low Dose Aspirin) atorvastatin 20 mg tablet 20 mg PO QAM 09/23/20 10/23/21 duloxetine 30 mg capsule,delayed 30 mg PO BEDTIME 09/23/20 10/23/21 release esomeprazole magnesium 40 mg 40 mg PO BID 09/23/20 10/23/21 capsule,delayed release ondansetron HCl 4 mg tablet 4 mg PO TID PRN nausea 09/23/20 10/23/21 glipizide 2.5 mg tablet, extended 2.5 mg PO DAILY 01/14/21 10/23/21 release 24 hr metoprolol succinate 25 mg 25 mg PO BEDTIME 03/14/21 10/23/21 tablet,extended release 24 hr metoprolol succinate 25 mg 25 mg PO DAILY 03/14/21 10/23/21 tablet,extended release 24 hr amiodarone 200 mg tablet 100 mg PO DAILY 10/23/21 10/23/21 hydrocodone 5 mg-acetaminophen 325 1 tab PO Q6H PRN Pain (Scale Score 10/23/21 10/23/21 mg tablet 4-6) metformin 1,000 mg tablet 500 mg PO BID 10/23/21 10/23/21 ticagrelor 90 mg tablet (Brilinta) 90 mg PO BID 10/23/21 10/23/21 Previous Rx's Medication Instructions Recorded nitroglycerin 0.4 mg sublingual 0.4 mg sublingual Q5-15M PRN chest 06/29/18 tablet pain #30 tabs magnesium oxide 400 mg (241.3 mg 400 mg PO BID #180 tabs 10/08/20 magnesium) tablet enoxaparin 40 mg/0.4 mL 40 mg (0.4 mL) SUBCUT DAILY #23 mL 10/29/21 subcutaneous syringe (Lovenox) oxycodone 5 mg tablet 5 mg PO Q3HR PRN Pain, Moderate 10/29/21 (4-6) #40 tabs Allergies Allergy/AdvReac Type Severity Reaction Status Date / Time [id number] Reductase Allergy Intermediate MUSCLE PAIN Verified 11/15/22 11:18 Inhibitor [[id number] REDUCTASE INHIBITOR] piroxicam [PIROXICAM] Allergy Mild NAUSEA, Verified 11/15/22 11:18 VOMITING dabigatran etexilate AdvReac Hematuria Verified 11/15/22 11:18 Review of Systems <Arlette Jenkins DO - Last Filed: 12/01/22 02:09> Review of Systems ROS Unobtainable: All systems reviewed & are unremarkable except as noted in HPI and below Patient History <Arlette Jenkins DO - Last Filed: 12/01/22 02:09> Medical History Anxiety Arthritis CAD (coronary artery disease) DDD (degenerative disc disease), cervical Depression Diabetes Dyslipidemia Dysuria Elevated serum homocysteine level Heart attack History of angina History of CVA (cerebrovascular accident) History of dizziness History of esophageal reflux History of fatigue History of hematuria Impotence Lumbosacral radiculopathy at L5 Memory deficit Neuropathy of both feet Nocturia Nocturia Osteoarthritis Pacemaker (~2013) Paroxysmal A-fib 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 RBBB Renal insufficiency Sick sinus syndrome Sleep apnea (~2012) Spinal stenosis in cervical region Spinal stenosis of lumbar region Thyroid disease TIA (transient ischemic attack) Urinary retention Surgical History H/O laminectomy H/O shoulder surgery H/O thumb surgery History of appendectomy History of bladder surgery History of cardiac cath (~2012) History of cholecystectomy (~2012) History of cystoscopy History of fusion of cervical spine History of lumbar fusion History of tonsillectomy History of vasectomy S/P drug eluting coronary stent placement Status post right foot surgery Social History marital status: details: aisha Horner, lives in [place] household members: spouse lives independently: Yes caregiver/support person: No housing: house Smoking Status: Never smoker alcohol intake: current substance use type: does not use Smoking Status: Never smoker alcohol intake frequency: holidays/special occasions only Substance Use Type: does not use Exam <Arlette Jenkins DO - Last Filed: 12/01/22 02:09> Initial Vital Signs Initial Vital Signs: Vital Signs Temperature 98.1 F 11/30/22 04:54 Pulse Rate 70 11/30/22 04:54 Respiratory Rate 18 11/30/22 04:54 Blood Pressure 126/63 11/30/22 04:54 Pulse Oximetry 97 11/30/22 04:54 Oxygen Delivery Method Room Air 11/30/22 04:54 GENERAL: Alert pleasant mildly confused 87-year-old male HEENT: Head atraumatic,EOMI, pupils reactive, no evidence of entrapment face symmetric, moist mucous membranes CARDIOVASCULAR: Regular rate and rhythm without murmurs, rubs or gallops. RESPIRATORY: Breath sounds equal bilaterally, no wheezes rales or rhonchi. ABDOMEN: Soft, nontender. Normoactive bowel sounds all 4 quadrants. No guarding or rebound. EXTREMITIES: Normal range of motion, no clubbing or edema. Neurovascularly intact NEUROLOGICAL: Left leg is weak, right leg is significantly stronger. [place] Wrapper Maker strength equal bilaterally SKIN: Warm, dry, no laceration, no petechiae, no rashes or lesions. <Priya Magdaleno DO - Last Filed: 12/03/22 08:45> Initial Vital Signs Initial Vital Signs: Vital Signs Temperature 98.1 F 11/30/22 04:54 Pulse Rate 70 11/30/22 04:54 Respiratory Rate 18 11/30/22 04:54 Blood Pressure 126/63 11/30/22 04:54 Pulse Oximetry 97 11/30/22 04:54 Oxygen Delivery Method Room Air 11/30/22 04:54 Course <DO Devonte Sanford Last Filed: 12/01/22 02:09> Orders Ordered: Discontinued Medications Acetaminophen (Acetaminophen 325 Mg Tablet) 650 mg PO NOW ONE Stop: 11/30/22 10:05 Last Admin: 11/30/22 10:31 Dose: 650 mg Documented By: AMU Vital Signs Vital signs: Vital Signs - 8 hr 11/30/22 04:54 11/30/22 05:00 11/30/22 05:58 Temperature 98.1 F Pulse Rate 70 71 67 Respiratory Rate 18 Blood Pressure 126/63 Pulse Oximetry 97 97 97 Oxygen Delivery Method Room Air 11/30/22 05:59 11/30/22 05:59 11/30/22 06:00 Temperature Pulse Rate 74 Respiratory Rate Blood Pressure 113/71 114/64 Pulse Oximetry 96 Oxygen Delivery Method 11/30/22 06:00 11/30/22 06:15 11/30/22 06:30 Temperature Pulse Rate 74 72 Respiratory Rate Blood Pressure 173/104 H Pulse Oximetry 96 97 Oxygen Delivery Method 11/30/22 06:33 11/30/22 07:00 11/30/22 07:30 Temperature Pulse Rate 79 75 82 Respiratory Rate Blood Pressure Pulse Oximetry 97 98 97 Oxygen Delivery Method 11/30/22 08:00 11/30/22 08:30 11/30/22 09:00 Temperature Pulse Rate 89 87 76 Respiratory Rate Blood Pressure Pulse Oximetry 98 96 96 Oxygen Delivery Method <DO Devonte Parsons Last Filed: 12/03/22 08:45> Orders Ordered: Discontinued Medications Acetaminophen (Acetaminophen 325 Mg Tablet) 650 mg PO NOW ONE Stop: 11/30/22 10:05 Last Admin: 11/30/22 10:31 Dose: 650 mg Documented By: AMU Vital Signs Vital signs: Vital Signs - 8 hr 11/30/22 04:54 11/30/22 05:00 11/30/22 05:58 Temperature 98.1 F Pulse Rate 70 71 67 Respiratory Rate 18 Blood Pressure 126/63 Pulse Oximetry 97 97 97 Oxygen Delivery Method Room Air 11/30/22 05:59 11/30/22 05:59 11/30/22 06:00 Temperature Pulse Rate 74 Respiratory Rate Blood Pressure 113/71 114/64 Pulse Oximetry 96 Oxygen Delivery Method 11/30/22 06:00 11/30/22 06:15 11/30/22 06:30 Temperature Pulse Rate 74 72 Respiratory Rate Blood Pressure 173/104 H Pulse Oximetry 96 97 Oxygen Delivery Method 11/30/22 06:33 11/30/22 07:00 11/30/22 07:30 Temperature Pulse Rate 79 75 82 Respiratory Rate Blood Pressure Pulse Oximetry 97 98 97 Oxygen Delivery Method 11/30/22 08:00 11/30/22 08:30 11/30/22 09:00 Temperature Pulse Rate 89 87 76 Respiratory Rate Blood Pressure Pulse Oximetry 98 96 96 Oxygen Delivery Method MDM - Fall <Arlette Jenkins, DO - Last Filed: 12/01/22 02:09> Lab Data 11/30/22 06:50 11/30/22 06:50 Labs: Lab Results 11/30/22 11/30/22 11/30/22 Range/Units 06:50 06:50 08:33 WBC 5.2 (4.5-11.0) X10^3/uL RBC 4.22 L (4.5-5.9) X10^6/uL Hgb 12.5 L (13.5-17.5) g/dL Hct 37.5 L (41-53) % MCV 88.8 (80-100) fL MCH 29.6 (26-34) PG MCHC 33.3 (30-36) % RDW 16.1 H (11.6-14.8) % Plt Count 296 (150-400) X10^3/uL Neut % (Auto) 63.1 (50-75) % Lymph % (Auto) 21.6 L (25-40) % [place] % (Auto) 12.8 (3-14) % Eos % (Auto) 1.9 L (2-4) % Baso % (Auto) 0.6 (0-2) % Neut # (Auto) 3300 (6149-7792) /uL Lymph # (Auto) 1100 (8237-4526) /uL [place] # (Auto) 700 (0-900) /uL Eos # (Auto) 100 (0-450) /uL Baso # (Auto) 0 (0-100) /uL Sodium 134 L (137-145) mmol/L Potassium 4.4 (3.4-5.1) mmol/L Chloride 100 (98-107) mmol/L Carbon Dioxide 23 (22-32) mmol/L BUN 26 H (9-20) mg/dL Creatinine 1.50 H (0.66-1.25) mg/dL Estimated GFR 45 L (>60) mL/min BUN/Creatinine Ratio 17.3 (6-22) Glucose 143 H (80-110) mg/dL Calcium 8.8 (8.4-10.2) mg/dL Total Bilirubin 0.8 (0.2-1.3) mg/dL AST 30 (17-59) IU/L ALT 26 (<50) IU/L Alkaline Phosphatase 162 H (38-126) U/L Total Protein 7.1 (6.3-8.2) g/dL Albumin 4.0 (3.5-5.0) g/dL Globulin 3.1 (1.7-4.1) g/dL Albumin/Globulin Ratio 1.3 (1.0-2.8) Urine RBC None seen (0-5/HPF) Urine WBC None seen (0-5/HPF) Urine Bacteria None seen (None) Ur Culture Indicated? Cult not indicated Micro UA Comment Microscopic normal Urine Dip Bedside Urine Glucose Negative Bedside Urine Bilirubin - Negative Bedside Urine Ketone - Negative Urine Specific [place] 1.015 Bedside Urine Occult Blood - Negative Bedside Urine pH 6 Bedside Urine Protein +/- 15 Bedside Urine Urobilinogen +/- 1mg Bedside Urine Nitrite - Negative Bedside Urine Leukocytes - Negative Esterase MDM Narrative Medical decision making narrative: The patient is here for a fall difficult to tell exactly circumstances of the fall but he does fall. Initial blood work was done which was overall unremarkable without anemia leukocytosis electrolyte abnormality or GISELA. Initial head CT did show possible right-sided maxillary sinus fracture he poorly fell and hit the left side. Further imaging is ordered. Patient signed out to Dr. Magdaleno This is an 87-year-old male with history of stroke, coronary artery disease and diabetes with pacemaker in place and patient and both state worsening memory issues patient had fall today, states he fell on his left side and hit the left side of his head. Patient has some chronic lower back pain which they state has been shown to not have a fracture. He has some mild low back discomfort right now but defers anything for pain. He has been taking Tylenol PRN, they tried some CBD topically yesterday x2 and were concerned this might have interacted and caused his fall. Patient has noticed he does have some weakness in his left leg that has been present for several weeks. He has had prior strokes he also has noted some issues with finger-nose at home with his upper extremities and heel-calderon and states this has been several months. Patient and state his memory has been worsening over time. They note he has not older pacemaker adult think that he can get MRIs at other facilities either can not here because were not sought up for it. Patient does not have any other new new acute neurologic changes. He denies any other symptoms or issues. He is on Brilinta for his coronary artery disease. Patient is been referred for PT at [facility] where he lives with his he normally ambulates with a walker. Head CT, cervical spine chest x-ray are negative. Patient's exam otherwise does not show other acute changes he does have some slight increase of work with lifting his left leg but minimal to no drift. He does not have any back pain or hip pain on examination that would prompt me to think he needs imaging. He states does not hurt to lift his leg. He states this has been longstanding. Discussed with patient and family if they would like additional workup they would not at this time. Patient was signed out to myself by Dr. Jenkins while CT facial bones were still pending is head CT had shown a possible right maxillary fracture, patient and family note that he did not hit the right side of his face he does not have any bruising or skin changes he is nontender over that area suspect this may be an old fracture. Dedicated facial bones CT shows nondisplaced lateral wall right maxillary sinus fracture. <Priya Magdaleno, DO - Last Filed: 12/03/22 08:45> Lab Data Labs: Lab Results 11/30/22 11/30/22 11/30/22 Range/Units 06:50 06:50 08:33 WBC 5.2 (4.5-11.0) X10^3/uL RBC 4.22 L (4.5-5.9) X10^6/uL Hgb 12.5 L (13.5-17.5) g/dL Hct 37.5 L (41-53) % MCV 88.8 (80-100) fL MCH 29.6 (26-34) PG MCHC 33.3 (30-36) % RDW 16.1 H (11.6-14.8) % Plt Count 296 (150-400) X10^3/uL Neut % (Auto) 63.1 (50-75) % Lymph % (Auto) 21.6 L (25-40) % [place] % (Auto) 12.8 (3-14) % Eos % (Auto) 1.9 L (2-4) % Baso % (Auto) 0.6 (0-2) % Neut # (Auto) 3300 (7360-7843) /uL Lymph # (Auto) 1100 (0300-5325) /uL [place] # (Auto) 700 (0-900) /uL Eos # (Auto) 100 (0-450) /uL Baso # (Auto) 0 (0-100) /uL Sodium 134 L (137-145) mmol/L Potassium 4.4 (3.4-5.1) mmol/L Chloride 100 (98-107) mmol/L Carbon Dioxide 23 (22-32) mmol/L BUN 26 H (9-20) mg/dL Creatinine 1.50 H (0.66-1.25) mg/dL Estimated GFR 45 L (>60) mL/min BUN/Creatinine Ratio 17.3 (6-22) Glucose 143 H (80-110) mg/dL Calcium 8.8 (8.4-10.2) mg/dL Total Bilirubin 0.8 (0.2-1.3) mg/dL AST 30 (17-59) IU/L ALT 26 (<50) IU/L Alkaline Phosphatase 162 H (38-126) U/L Total Protein 7.1 (6.3-8.2) g/dL Albumin 4.0 (3.5-5.0) g/dL Globulin 3.1 (1.7-4.1) g/dL Albumin/Globulin Ratio 1.3 (1.0-2.8) Urine RBC None seen (0-5/HPF) Urine WBC None seen (0-5/HPF) Urine Bacteria None seen (None) Ur Culture Indicated? Cult not indicated Micro UA Comment Microscopic normal Urine Dip Bedside Urine Glucose Negative Bedside Urine Bilirubin - Negative Bedside Urine Ketone - Negative Urine Specific [place] 1.015 Bedside Urine Occult Blood - Negative Bedside Urine pH 6 Bedside Urine Protein +/- 15 Bedside Urine Urobilinogen +/- 1mg Bedside Urine Nitrite - Negative Bedside Urine Leukocytes - Negative Esterase Imaging Data facial bonestCT: Radiologist's Impression: [address] [address] [address] Scan Report Signed Patient: Sotero Kasper MR#: [id number] : 1935 Acct:[id number] Age/Sex: 87 / M Date of Service: 11/30/22 Loc: ED Accession Number: [id number] ?? Procedure: CT facial bones wo con Ordering Provider: Arlette Jenkins D.O. PROCEDURE:? CT FACIAL BONES WO CON ? INDICATIONS:? fall right maxially fx ? TECHNIQUE:? Noncontrast 2.5 mm thick axial images acquired from the mandible through the frontal sinuses, with coronal and sagittal reformatting.? For radiation dose reduction, the following was used:? automated exposure control, adjustment of mA and/or kV according to patient size.? ? COMPARISON:? [facility], CT, CT HEAD/BRAIN WO CON, 11/30/2022, 5:07. ? FINDINGS:? Image quality:? Excellent.? ? Bones and teeth:? Orbital ramos are intact.? There is a nondisplaced lateral wall right maxillary sinus fracture.? On the CT of the head appeared that this was a comminuted fracture.? It is comminuted.? There is associated fluid present in the right maxillary sinus.? The inferior wall of the right orbit appears intact.? No other displaced facial bone fractures or mandibular fractures are identified..? Nasal bones and septum are intact.? Visualized portions of the mandible demonstrate no fractures or subluxation.? Zygomatic arches are intact.? Pterygoid plates are intact.? Visualized portions of the skull base and auditory canals are intact.? Patient is edentulous. ? Sinuses:? Lateral wall right maxillary sinus fracture with associated fluid in the right maxillary sinus.? No other sinus fractures.? The other paranasal sinuses are well aerated.? There is a small left maxillary sinus mucous retention cyst.? Mastoids are clear.? Mastoid air cells are aerated.? ? Soft tissues:? No edema, masses, or fluid collections.? No enlarged lymph nodes.? No soft tissue lacerations or debris.? ? Vascular:? Visualized vascular structures appear normal in the absence of contrast.? Bony vascular foramina and canals are intact.? ? IMPRESSION:? Nondisplaced lateral wall right maxillary sinus fracture with associated right maxillary sinus fluid. ? ? Dictated by: Ru Cheatham M.D. on 11/30/2022 at 10:12 ? ? Approved by: Ru Cheatham M.D. on 11/30/2022 at 10:17?? MDM Narrative Medical decision making narrative: The patient is here for a fall difficult to tell exactly circumstances of the fall but he does fall. Initial blood work was done which was overall unremarkable without anemia leukocytosis electrolyte abnormality or GISELA. Initial head CT did show possible right-sided maxillary sinus fracture he poorly fell and hit the left side. Further imaging is ordered. Patient signed out to Dr. Sharla Magdaleno: This is an 87-year-old male with history of stroke, coronary artery disease and diabetes with pacemaker in place and patient and both state worsening memory issues patient had fall today, states he fell on his left side and hit the left side of his head. Patient has some chronic lower back pain which they state has been shown to not have a fracture. He has some mild low back discomfort right now but defers anything for pain. He has been taking Tylenol PRN, they tried some CBD topically yesterday x2 and were concerned this might have interacted and caused his fall. Patient has noticed he does have some weakness in his left leg that has been present for several weeks. He has had prior strokes he also has noted some issues with finger-nose at home with his upper extremities and heel-calderon and states this has been several months. Patient and state his memory has been worsening over time. They note he has not older pacemaker adult think that he can get MRIs at other facilities either can not here because were not sought up for it. Patient does not have any other new new acute neurologic changes. He denies any other symptoms or issues. He is on Brilinta for his coronary artery disease. Patient is been referred for PT at [facility] where he lives with his he normally ambulates with a walker. Head CT, cervical spine chest x-ray are negative. Patient's exam otherwise does not show other acute changes he does have some slight increase of work with lifting his left leg but minimal to no drift. He does not have any back pain or hip pain on examination that would prompt me to think he needs imaging. He states does not hurt to lift his leg. He states this has been longstanding. Discussed with patient and family if they would like additional workup they would not at this time. Patient was signed out to myself by Dr. Jenkins while CT facial bones were still pending is head CT had shown a possible right maxillary fracture, patient and family note that he did not hit the right side of his face he does not have any bruising or skin changes he is nontender over that area suspect this may be an old fracture. Dedicated facial bones CT shows nondisplaced lateral wall right maxillary sinus fracture. Discussed follow-up with patient. They are comfortable returning home he has been able to ambulate in the department. Discharge Plan Departure Patient Disposition: Home Clinical Impression: Maxillary fracture, right side, initial encounter for closed fracture, Fall Abrasion of scalp Qualifiers: Encounter type: initial encounter Qualified Code(s): S00.01XA - Abrasion of scalp, initial encounter Activity Restrictions/Additional Instructions: Follow-up with your physician for recheck. You can follow-up with ENT regarding the maxillary wall fracture, unclear if this is new or old and may not require any additional intervention. I would avoid blowing your nose for the short term. You have a fracture of the right maxillary or cheek bone. Based on the bruising and changes today this may be old and not from your fall today. You may continue your home medications as prescribed. Please return for new or worsening headaches, neck or back pain, new numbness, tingling or weakness, loss of bowel or bladder control, sudden changes in mental status or confusion, persistent vomiting or other new or concerning changes. Prescriptions: No Action nitroglycerin 0.4 mg tablet, sublingual 0.4 mg SL Q5-15M PRN (Reason: chest pain) Qty: 30 2RF Rx Instructions: until response; do not exceed 3 doses per episode glipizide 2.5 mg Tablet Extended Release 24hr 2.5 mg PO DAILY levothyroxine 75 mcg tablet 75 mcg PO QAM atorvastatin 20 mg tablet 20 mg PO QAM Patient Comments: pt only takes it in the morning duloxetine 30 mg capsule,delayed release(DR/EC) 30 mg PO BEDTIME ondansetron HCl 4 mg tablet 4 mg PO TID PRN (Reason: nausea) esomeprazole magnesium 40 mg capsule,delayed release(DR/EC) 40 mg PO BID magnesium oxide 400 mg (241.3 mg magnesium) Tablet 400 mg PO BID Qty: 180 3RF metoprolol succinate 25 mg tablet extended release 24 hr 25 mg PO DAILY metoprolol succinate 25 mg tablet extended release 24 hr 25 mg PO BEDTIME amiodarone 200 mg tablet 100 mg PO DAILY metformin 1,000 mg tablet 500 mg PO BID Brilinta 90 mg tablet 90 mg PO BID hydrocodone-acetaminophen 5-325 mg Tablet 1 tab PO Q6H PRN (Reason: Pain (Scale Score 4-6)) oxycodone 5 mg Tablet 5 mg PO Q3HR PRN (Reason: Pain, Moderate (4-6)) Qty: 40 0RF enoxaparin [Lovenox] 40 mg/0.4 mL Syringe 40 mg SUBCUT DAILY Qty: 23 0RF aspirin [Adult Low Dose Aspirin] 81 mg tablet,delayed release (DR/EC) 81 mg PO QAM Referrals: Cameron Madrigal MD [Physician] - Diane Howard MD [Primary Care Provider] - Stand Alone Forms: Patient Portal/API
--- NOTE | 2022-11-30 06:32 | DI.CT.S_ITS ---
PROCEDURE: CT FACIAL BONES WO CON INDICATIONS: fall right maxially fx TECHNIQUE: Noncontrast 2.5 mm thick axial images acquired from the mandible through the frontal sinuses, with coronal and sagittal reformatting. For radiation dose reduction, the following was used: automated exposure control, adjustment of mA and/or kV according to patient size. COMPARISON: [facility], CT, CT HEAD/BRAIN WO CON, 11/30/2022, 5:07. FINDINGS: Image quality: Excellent. Bones and teeth: Orbital ramos are intact. There is a nondisplaced lateral wall right maxillary sinus fracture. On the CT of the head appeared that this was a comminuted fracture. It is comminuted. There is associated fluid present in the right maxillary sinus. The inferior wall of the right orbit appears intact. No other displaced facial bone fractures or mandibular fractures are identified.. Nasal bones and septum are intact. Visualized portions of the mandible demonstrate no fractures or subluxation. Zygomatic arches are intact. Pterygoid plates are intact. Visualized portions of the skull base and auditory canals are intact. Patient is edentulous. Sinuses: Lateral wall right maxillary sinus fracture with associated fluid in the right maxillary sinus. No other sinus fractures. The other paranasal sinuses are well aerated. There is a small left maxillary sinus mucous retention cyst. Mastoids are clear. Mastoid air cells are aerated. Soft tissues: No edema, masses, or fluid collections. No enlarged lymph nodes. No soft tissue lacerations or debris. Vascular: Visualized vascular structures appear normal in the absence of contrast. Bony vascular foramina and canals are intact. IMPRESSION: Nondisplaced lateral wall right maxillary sinus fracture with associated right maxillary sinus fluid. Dictated by: Ru Cheatham M.D. on 11/30/2022 at 10:12 Approved by: Ru Cheatham M.D. on 11/30/2022 at 10:17
--- NOTE | 2022-11-30 06:32 | DI.CT.S_ITS ---
PROCEDURE: CT CERVICAL SPINE WO CON INDICATIONS: fall TECHNIQUE: Noncontrast 3 mm thick sections acquired from the skull base to the T4 level. Sagittal and coronal reformats were then constructed. For radiation dose reduction, the following was used: automated exposure control, adjustment of mA and/or kV according to patient size. COMPARISON: [facility], CT, CT CERVICAL SPINE WO CON, 10/23/2021, 20:52. FINDINGS: Image quality: Excellent. Bones: No fractures or dislocations. Visualized superior ribs are intact. Expected appearance of remote ACDF C5 through C7 with intact surgical hardware. Cervical spondylosis, with bilateral facet arthropathy at C3-C4 and C4-C5 and uncovertebral joint hypertrophy contributing to foraminal stenosis at these levels. Soft tissues: Prevertebral soft tissues are normal in thickness. No paravertebral hematomas. No apical pneumothoraces. IMPRESSION: 1. No evidence acute cervical fracture or dislocation. 2. Cervical spondylosis. Dictated by: Ru Cheatham M.D. on 11/30/2022 at 7:48 Approved by: Ru Cheatham M.D. on 11/30/2022 at 7:58
--- NOTE | 2022-11-30 06:38 | DI.RAD.S_ITS ---
PROCEDURE: XR CHEST 1V INDICATIONS: fall TECHNIQUE: One view of the chest was acquired. COMPARISON: [facility], CT, CT CERVICAL SPINE WO CON, 11/30/2022, 7:04. [facility], CR, XR CHEST 1V, 10/23/2021, 20:36. FINDINGS: Surgical changes and devices: Pacemaker. Lungs and pleura: Lungs are clear. No pleural effusions or pneumothorax. Mediastinum: Superior mediastinal prominence is secondary to epidural lipomatosis. Heart size is normal. Bones and chest wall: No suspicious bony lesions. Overlying soft tissues appear unremarkable. IMPRESSION: No evidence acute pulmonary process. Dictated by: Ru Cheatham M.D. on 11/30/2022 at 8:15 Approved by: Ru Cheatham M.D. on 11/30/2022 at 8:17
[2022-11-30 07:07] LABS: Add Manual Diff / Slide Review NO; Basophils Absolute Auto 0 /uL (0-100); Basophils Percent Auto 0.6 % (0-2); Eosinophils Absolute Auto 100 /uL (0-450); Eosinophils Percent Auto 1.9 % (2-4); Hematocrit 37.5 % (41-53); Hemoglobin 12.5 g/dL (13.5-17.5); Lymphocytes Absolute Auto 1100 /uL (1100-4500); Lymphocytes Percent Auto 21.6 % (25-40); Mean Corpuscular HGB Conc 33.3 % (30-36); Mean Corpuscular Hemoglobin 29.6 PG (26-34); Mean Corpuscular Volume 88.8 fL (80-100); Monocytes Absolute Auto 700 /uL (0-900); Monocytes Percent Auto 12.8 % (3-14); Neutrophils Absolute Auto 3300 /uL (1500-7000); Neutrophils Percent Auto 63.1 % (50-75); Platelet Count 296 X10^3/uL (150-400); Red Blood Cell Count 4.22 X10^6/uL (4.5-5.9); Red Cell Distribution Width 16.1 % (11.6-14.8); White Blood Cell Count 5.2 X10^3/uL (4.5-11.0)
[2022-11-30 07:20] LABS: Alanine Aminotransferase 26 IU/L (<50); Albumin Globulin Ratio 1.3 (1.0-2.8); Alkaline Phosphatase 162 U/L (38-126); Aspartate Aminotransferase 30 IU/L (17-59); BUN Creatinine Ratio 17.3 (6-22); Bilirubin Total 0.8 mg/dL (0.2-1.3); Blood Urea Nitrogen 26 mg/dL (9-20); Calcium 8.8 mg/dL (8.4-10.2); Carbon Dioxide 23 mmol/L (22-32); Chloride 100 mmol/L (98-107); Estimated Glomerular Filt Rate 45 mL/min (>60); Globulin 3.1 g/dL (1.7-4.1); Glucose 143 mg/dL (80-110); HEMOLYSIS < 15 (0-50); Potassium 4.4 mmol/L (3.4-5.1); Sodium 134 mmol/L (137-145); Total Protein 7.1 g/dL (6.3-8.2)
[2022-11-30 08:47] LABS: Bacteria Urine None Seen; Culture Indicated Urine Cult Not Indicated; RBC Urine None Seen (0-5/HPF); Urine Comments Microscopic Normal; WBC Urine None Seen (0-5/HPF)
--- NOTE | 2022-11-30 09:35 | PC.NURSE ---
Pt did very well with ambulation with a walker. Steady gait, no dizziness
[2022-11-30] MEDS: ACETAMINOPHEN 325 MG TABLET 650 MG PO (10:31)
== END 2022-11-30 11:01 | disposition home or self-care (01) ==
PROVIDERS: Emergency Medicine; Emergency Provider Emergency Medicine; PCP Family Medicine
DX: S02.40CA Maxillary fracture, right side, initial encounter for closed fracture (principal); S00.01XA Abrasion of scalp, initial encounter; M54.50 Low back pain, unspecified; R29.6 Repeated falls; Z79.899 Other long term (current) drug therapy; W19.XXXA Unspecified fall, initial encounter; Z95.0 Presence of cardiac pacemaker
CPT/HCPCS: 36415; 70450; 70486; 71045; 72125; 80053; 81003; 81015; 85025; 99283; 99284

== ENCOUNTER → 2023-01-06 09:01 | Outpatient (CLI) | payer MEDICARE, OTHER, SELFPAY ==
[2021-10-23 22:54] VITALS: BMI 24.3
[2023-01-06 10:02] LABS: Alanine Aminotransferase 38 IU/L (<50); Albumin 4.2 g/dL (3.5-5.0); Albumin Globulin Ratio 1.4 (1.0-2.8); Alkaline Phosphatase 118 U/L (38-126); Aspartate Aminotransferase 38 IU/L (17-59); BUN Creatinine Ratio 11.6 (6-22); Bilirubin Total 0.6 mg/dL (0.2-1.3); Blood Urea Nitrogen 17 mg/dL (9-20); Calcium 9.3 mg/dL (8.4-10.2); Carbon Dioxide 23 mmol/L (22-32); Chloride 101 mmol/L (98-107); Cholesterol 184 mg/dL (140-199); Estimated Glomerular Filt Rate 46 mL/min (>60); Globulin 2.9 g/dL (1.7-4.1); Glucose 184 mg/dL (80-110); HDL Cholesterol 49 mg/dL (40-60); HEMOLYSIS < 15 (0-50); LDL Cholesterol Calculated 77 mg/dL (<100); Potassium 4.7 mmol/L (3.4-5.1); Sodium 135 mmol/L (137-145); Total Protein 7.1 g/dL (6.3-8.2); Triglycerides 290 mg/dL (35-150)
[2023-01-06 11:00] LABS: Free T4, Direct Thyroxine 1.61 ng/dL (0.78-2.19)
[2023-01-06 12:21] LABS: Creatinine Urine Random 101.3 mg/dL
[2023-01-06 12:25] LABS: Microalbumi Creatinin Ratio Ur 9.8 ug/mg CR (<30)
[2023-01-07 03:09] LABS: Labcorp Hemoglobin (Hb) A1c 7.2 % (4.8-5.6)
[2023-01-07 09:22] LABS: Vitamin B12 > 1000 pg/mL (239-931)
== END ==
PROVIDERS: PCP Family Medicine; Referring Provider Family Medicine; Visit Provider Family Medicine
DX: E11.9 Type 2 diabetes mellitus without complications (principal); E03.9 Hypothyroidism, unspecified; E53.8 Deficiency of other specified B group vitamins; E78.5 Hyperlipidemia, unspecified; E83.42 Hypomagnesemia; G45.9 Transient cerebral ischemic attack, unspecified; I63.239 Cerebral infarction due to unspecified occlusion or stenosis of unspecified carotid artery; I25.10 Atherosclerotic heart disease of native coronary artery without angina pectoris
CPT/HCPCS: 36415; 80053; 80061; 82043; 82570; 82607; 83036; 83735; 84439; 84443

== ENCOUNTER 2023-04-26 14:06 | Observation (INO) | payer MEDICARE, OTHER, SELFPAY ==
[2021-10-23 22:54] VITALS: BMI 24.3
[2023-04-26] VITALS (28 sets, daily range): BP systolic 95–167; BP diastolic 53–96; PULSE 69–86; RESP 12–32; TEMP 37.1; O2SAT 93–99; BMI 25.5
--- NOTE | 2023-04-26 14:28 | DI.CT.S_ITS ---
PROCEDURE: CT CERVICAL SPINE WO CON INDICATIONS: fall/thinners TECHNIQUE: Noncontrast 3 mm thick sections acquired from the skull base to the T4 level. Sagittal and coronal reformats were then constructed. For radiation dose reduction, the following was used: automated exposure control, adjustment of mA and/or kV according to patient size. COMPARISON: [facility], CT, CT CERVICAL SPINE WO CON, 11/30/2022, 7:04. FINDINGS: Image quality: Excellent. Bones: No fractures or dislocations. Visualized superior ribs are intact. Expected appearance of ACDF from C5 through C7. No evidence of hardware failure or loosening. Cervical spondylitic change with bilateral foraminal narrowing at C3-C4 and C4-C5 and facet arthropathy. Soft tissues: Prevertebral soft tissues are normal in thickness. No paravertebral hematomas. No apical pneumothoraces. Ascending aorta measures at least 4.4 cm. IMPRESSION: 1. No acute cervical fracture or dislocation. 2. Cervical spondylitic change. 3. Ascending aortic aneurysm. Dictated by: Ru Cheatham M.D. on 04/26/2023 at 15:30 Approved by: Ru Cheatham M.D. on 04/26/2023 at 15:42
--- NOTE | 2023-04-26 14:28 | DI.CT.S_ITS ---
PROCEDURE: CT HEAD/BRAIN WO CON INDICATIONS: fall/thinners TECHNIQUE: Noncontrast 4.5 mm thick angled axial sections acquired from the foramen magnum to the vertex, with coronal and sagittal reformats. For radiation dose reduction, the following was used: automated exposure control, adjustment of mA and/or kV according to patient size. COMPARISON: [facility], CT, CT HEAD/BRAIN WO CON, 11/30/2022, 5:07. FINDINGS: Image quality: Excellent. CSF spaces: Basal cisterns are patent. No extra-axial fluid collections. The ventricles are symmetric in size and shape. Brain: No intracranial bleeds or masses. There is cerebral volume loss for age, with resultant ventricular and sulcal prominence. There are periventricular and deep white matter chronic small vessel ischemic changes. Old left-sided lacunar infarction. There is intracranial internal carotid artery atherosclerosis. Skull and face: Calvarium and visualized facial bones appear intact, without suspicious lesions. Sinuses: Visualized sinuses and mastoids are clear. IMPRESSION: No acute intracranial abnormality. Dictated by: Ru Cheatham M.D. on 04/26/2023 at 15:28 Approved by: Ru Cheatham M.D. on 04/26/2023 at 15:29
--- NOTE | 2023-04-26 14:28 | DI.RAD.S_ITS ---
PROCEDURE: XR CHEST 1V INDICATIONS: Shortness of breath TECHNIQUE: One view of the chest was acquired. COMPARISON: [facility], NAOMY, XR CHEST 1V, 11/30/2022, 6:39. [facility], CR, XR CHEST 1V, 10/23/2021, 20:36. FINDINGS: Surgical changes and devices: A cardiac pacemaker is seen with pulse generator in the left chest. Cervical spinal fusion hardware is partially imaged. Lungs and pleura: Lungs are clear. No pleural effusions or pneumothorax. Mediastinum: Mediastinal contours appear normal. Heart size is stable. Bones and chest wall: No suspicious bony lesions. Overlying soft tissues appear unremarkable. IMPRESSION: No acute cardiopulmonary abnormality. Approved by: Johnnie Snyder M.D. on 04/26/2023 at 15:34
[2023-04-26 14:59] LABS: Add Manual Diff / Slide Review NO; Basophils Absolute Auto 100 /uL (0-100); Eosinophils Absolute Auto 100 /uL (0-450); Eosinophils Percent Auto 2.4 % (2-4); Hemoglobin 12.1 g/dL (13.5-17.5); Lymphocytes Absolute Auto 1200 /uL (1100-4500); Lymphocytes Percent Auto 23.1 % (25-40); Mean Corpuscular HGB Conc 32.8 % (30-36); Mean Corpuscular Volume 88.3 fL (80-100); Monocytes Absolute Auto 700 /uL (0-900); Monocytes Percent Auto 13.7 % (3-14); Neutrophils Absolute Auto 3200 /uL (1500-7000); Neutrophils Percent Auto 59.8 % (50-75); Platelet Count 268 X10^3/uL (150-400); Red Blood Cell Count 4.19 X10^6/uL (4.5-5.9); Red Cell Distribution Width 16.2 % (11.6-14.8); White Blood Cell Count 5.3 X10^3/uL (4.5-11.0)
[2023-04-26 15:04] LABS: INR 1.1 (0.9-1.3); Prothrombin Time 12.6 SECONDS (10.1-12.7)
[2023-04-26 15:08] LABS: Alanine Aminotransferase 44 IU/L (<50); Albumin 4.1 g/dL (3.5-5.0); Albumin Globulin Ratio 1.3 (1.0-2.8); Alkaline Phosphatase 89 U/L (38-126); Aspartate Aminotransferase 52 IU/L (17-59); BUN Creatinine Ratio 12.1 (6-22); Bilirubin Total 0.5 mg/dL (0.2-1.3); Blood Urea Nitrogen 19 mg/dL (9-20); Calcium 9.4 mg/dL (8.4-10.2); Carbon Dioxide 23 mmol/L (22-32); Chloride 100 mmol/L (98-107); Estimated Glomerular Filt Rate 42 mL/min (>60); Globulin 3.2 g/dL (1.7-4.1); Glucose 127 mg/dL (80-110); HEMOLYSIS < 15 (0-50); Potassium 4.5 mmol/L (3.4-5.1); Sodium 134 mmol/L (137-145); Total Protein 7.3 g/dL (6.3-8.2)
[2023-04-26 15:09] LABS: Lactate (Lactic Acid) 2.2 mmol/L (0.7-2.1)
[2023-04-26 15:20] LABS: NT-proBNP (BNP-Adult 18+) 965 pg/mL (<450); Troponin I < 0.012 ng/mL (0.01-0.034)
[2023-04-26 16:54] LABS: Reflexed Lactate in 2 Hours Y
--- NOTE | 2023-04-26 18:55 | ED_ITS ---
HPI - Dizziness General Chief Complaint: Shortness of Breath/Dyspnea Stated Complaint: Dizzy, feels like he is going to pass out Time Seen by Provider: 04/26/23 17:58 Source: patient Mode of arrival: Wheelchair History of Present Illness HPI Narrative: Patient is a 88-year-old male history of CVA, coronary artery disease from atrial fibrillation, diabetes presents today with variety symptoms. He was lightheaded today and almost passed out but did not. reports that she gets lightheaded today he was at physical therapy just sat down on the exercise bike appeared to not feel well per the physical therapist he did not continue and was sent to the ED. who denied any chest pain or palpitations. His report increasing shortness of breath with exertion and sometimes orthopnea. No significant edema. He denies any fever or chills. No abdominal pain nausea vomiting. He has not fallen. Related Data Home Medications Medication Instructions Recorded Confirmed levothyroxine 75 mcg tablet 75 mcg PO QAM 08/27/18 10/23/21 aspirin 81 mg tablet,delayed 81 mg PO QAM 12/24/18 10/23/21 release (Adult Low Dose Aspirin) atorvastatin 20 mg tablet 20 mg PO QAM 09/23/20 10/23/21 duloxetine 30 mg capsule,delayed 30 mg PO BEDTIME 09/23/20 10/23/21 release esomeprazole magnesium 40 mg 40 mg PO BID 09/23/20 10/23/21 capsule,delayed release ondansetron HCl 4 mg tablet 4 mg PO TID PRN nausea 09/23/20 10/23/21 glipizide 2.5 mg tablet, extended 2.5 mg PO DAILY 01/14/21 10/23/21 release 24 hr metoprolol succinate 25 mg 25 mg PO BEDTIME 03/14/21 10/23/21 tablet,extended release 24 hr metoprolol succinate 25 mg 25 mg PO DAILY 03/14/21 10/23/21 tablet,extended release 24 hr amiodarone 200 mg tablet 100 mg PO DAILY 10/23/21 10/23/21 hydrocodone 5 mg-acetaminophen 325 1 tab PO Q6H PRN Pain (Scale Score 10/23/21 10/23/21 mg tablet 4-6) metformin 1,000 mg tablet 500 mg PO BID 10/23/21 10/23/21 ticagrelor 90 mg tablet (Brilinta) 90 mg PO BID 10/23/21 10/23/21 Tylenol 500 mg PO 1XD 04/27/23 04/27/23 amiodarone 200 mg tablet 200 mg PO DAILY 04/27/23 04/27/23 aspirin 81 mg tablet 81 mg PO DAILY 04/27/23 04/27/23 atorvastatin 20 mg tablet 20 mg PO DAILY 04/27/23 04/27/23 duloxetine 20 mg capsule,delayed 20 mg PO 04/27/23 release esomeprazole magnesium 40 mg 40 mg PO BID 04/27/23 04/27/23 capsule,delayed release glipizide 2.5 mg tablet, extended 2.5 mg PO QAM 04/27/23 04/27/23 release 24 hr levothyroxine 88 mcg tablet 88 mcg PO DAILY 04/27/23 04/27/23 metformin 500 mg tablet 500 mg PO DAILY 04/27/23 04/27/23 mirtazapine 15 mg tablet 15 mg PO ONCE PM 04/27/23 04/27/23 nitroglycerin 0.4 mg sublingual 0.4 mg sublingual Q5-15M PRN chest 04/27/23 04/27/23 tablet pain ondansetron 4 mg disintegrating 4 mg PO Q8H PRN nausea 04/27/23 04/27/23 tablet ticagrelor 90 mg tablet (Brilinta) 90 mg PO BID 04/27/23 04/27/23 ticagrelor 90 mg tablet (Brilinta) 90 mg PO BID 04/27/23 04/27/23 Previous Rx's Medication Instructions Recorded nitroglycerin 0.4 mg sublingual 0.4 mg sublingual Q5-15M PRN chest 06/29/18 tablet pain #30 tabs magnesium oxide 400 mg (241.3 mg 400 mg PO BID #180 tabs 10/08/20 magnesium) tablet enoxaparin 40 mg/0.4 mL 40 mg (0.4 mL) SUBCUT DAILY #23 mL 10/29/21 subcutaneous syringe (Lovenox) oxycodone 5 mg tablet 5 mg PO Q3HR PRN Pain, Moderate 10/29/21 (4-6) #40 tabs Allergies Allergy/AdvReac Type Severity Reaction Status Date / Time Oasgmpf-[id number]-OtO Reductase Allergy Intermediate MUSCLE PAIN Verified 11/15/22 11:18 Inhibitor [[id number] REDUCTASE INHIBITOR] piroxicam [PIROXICAM] Allergy Mild NAUSEA, Verified 11/15/22 11:18 VOMITING dabigatran etexilate AdvReac Hematuria Verified 11/15/22 11:18 Review of Systems Review of Systems ROS Unobtainable: All systems reviewed & are unremarkable except as noted in HPI and below Patient History Medical History Anxiety Arthritis CAD (coronary artery disease) DDD (degenerative disc disease), cervical Depression Diabetes Dyslipidemia Dysuria Elevated serum homocysteine level Heart attack History of angina History of CVA (cerebrovascular accident) History of dizziness History of esophageal reflux History of fatigue History of hematuria Impotence Lumbosacral radiculopathy at L5 Memory deficit Neuropathy of both feet Nocturia Nocturia Osteoarthritis Pacemaker (~2013) Paroxysmal A-fib 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 RBBB Renal insufficiency Sick sinus syndrome Sleep apnea (~2012) Spinal stenosis in cervical region Spinal stenosis of lumbar region Thyroid disease TIA (transient ischemic attack) Urinary retention Surgical History H/O laminectomy H/O shoulder surgery H/O thumb surgery History of appendectomy History of bladder surgery History of cardiac cath (~2012) History of cholecystectomy (~2012) History of cystoscopy History of fusion of cervical spine History of lumbar fusion History of tonsillectomy History of vasectomy S/P drug eluting coronary stent placement Status post right foot surgery Social History marital status: details: aisha Horner, lives in [place] household members: spouse lives independently: Yes caregiver/support person: No housing: house Smoking Status: Never smoker alcohol intake: current substance use type: does not use Smoking Status: Never smoker alcohol intake frequency: holidays/special occasions only Substance Use Type: does not use Exam Initial Vital Signs Initial Vital Signs: Vital Signs Temperature 98.7 F 04/26/23 14:21 Pulse Rate 70 04/26/23 14:21 Respiratory Rate 18 04/26/23 14:21 Blood Pressure 114/67 04/26/23 14:21 Pulse Oximetry 99 04/26/23 14:21 Oxygen Delivery Method Room Air 04/26/23 14:21 GENERAL: Alert very pleasant 88-year-old male HEENT: Head atraumatic,EOMI, pupils reactive, face symmetric, [moist] mucous membranes CARDIOVASCULAR: Irregular no murmurs RESPIRATORY: Breath sounds equal bilaterally, no wheezes rales or rhonchi. ABDOMEN: Soft, nontender. Normoactive bowel sounds all 4 quadrants. No guarding or rebound. EXTREMITIES: Normal range of motion, no clubbing or edema. Neurovascularly intact NEUROLOGICAL: Alert and oriented x4. SKIN: Warm, dry, no laceration, no petechiae, no rashes or lesions. Course Orders Ordered: ED Orders 04/26/23 19:30 COVID19 -Nasal RAPID Stat D Dimer Stat 04/26/23 21:33 CT angio chest PE protocol Stat Discontinued Medications Sodium Chloride (Normal Saline 0.9%) 500 mls @ 1,000 mls/hr IV BOLUS ONE Stop: 04/26/23 19:39 Last Infusion: 04/26/23 20:22 Dose: 0 mls/hr Documented By: Admin: 04/26/23 19:43 Dose: 1,000 mls/hr Documented By: MARIELY Vital Signs Vital signs: Vital Signs - 8 hr 04/26/23 20:30 04/26/23 21:00 04/26/23 21:30 Pulse Rate 86 83 83 Respiratory Rate Blood Pressure Pulse Oximetry 98 98 97 Oxygen Delivery Method Room Air Room Air Room Air 04/26/23 22:00 04/26/23 22:17 04/26/23 22:17 Pulse Rate 80 80 Respiratory Rate 22 18 Blood Pressure 132/72 Pulse Oximetry 97 Oxygen Delivery Method Room Air 04/26/23 22:30 04/26/23 22:30 04/26/23 23:00 Pulse Rate 81 Respiratory Rate 16 Blood Pressure 139/79 135/91 H Pulse Oximetry 96 Oxygen Delivery Method Room Air 04/26/23 23:00 04/26/23 23:30 04/26/23 23:31 Pulse Rate 81 80 80 Respiratory Rate 21 18 20 Blood Pressure Pulse Oximetry 96 98 95 Oxygen Delivery Method Room Air Room Air Room Air 04/26/23 23:31 Pulse Rate Respiratory Rate Blood Pressure 154/72 H Pulse Oximetry Oxygen Delivery Method MDM - Dizziness Lab Data 04/26/23 14:50 04/26/23 14:50 Labs: Lab Results 04/26/23 04/26/23 04/26/23 Range/Units 14:50 14:50 14:50 WBC 5.3 (4.5-11.0) X10^3/uL RBC 4.19 L (4.5-5.9) X10^6/uL Hgb 12.1 L (13.5-17.5) g/dL Hct 37.0 L (41-53) % MCV 88.3 (80-100) fL MCH 29.0 (26-34) PG MCHC 32.8 (30-36) % RDW 16.2 H (11.6-14.8) % Plt Count 268 (150-400) X10^3/uL Neut % (Auto) 59.8 (50-75) % Lymph % (Auto) 23.1 L (25-40) % [place] % (Auto) 13.7 (3-14) % Eos % (Auto) 2.4 (2-4) % Baso % (Auto) 1.0 (0-2) % Neut # (Auto) 3200 (6758-8003) /uL Lymph # (Auto) 1200 (2653-1305) /uL [place] # (Auto) 700 (0-900) /uL Eos # (Auto) 100 (0-450) /uL Baso # (Auto) 100 (0-100) /uL PT 12.6 (10.1-12.7) SECONDS INR 1.1 (0.9-1.3) D-Dimer (<500) ng/ml Sodium 134 L (137-145) mmol/L Potassium 4.5 (3.4-5.1) mmol/L Chloride 100 (98-107) mmol/L Carbon Dioxide 23 (22-32) mmol/L BUN 19 (9-20) mg/dL Creatinine 1.57 H (0.66-1.25) mg/dL Estimated GFR 42 L (>60) mL/min BUN/Creatinine Ratio 12.1 (6-22) Glucose 127 H (80-110) mg/dL Lactate (0.7-2.1) mmol/L Calcium 9.4 (8.4-10.2) mg/dL Total Bilirubin 0.5 (0.2-1.3) mg/dL AST 52 (17-59) IU/L ALT 44 (<50) IU/L Alkaline Phosphatase 89 (38-126) U/L Troponin I < 0.012 (0.01-0.034) ng/mL NT-Pro-B Natriuret Pep 965 H (<450) pg/mL Total Protein 7.3 (6.3-8.2) g/dL Albumin 4.1 (3.5-5.0) g/dL Globulin 3.2 (1.7-4.1) g/dL Albumin/Globulin Ratio 1.3 (1.0-2.8) SARS-CoV-2 (PCR) (Negative) 04/26/23 04/26/23 04/26/23 Range/Units 14:50 17:37 19:30 WBC (4.5-11.0) X10^3/uL RBC (4.5-5.9) X10^6/uL Hgb (13.5-17.5) g/dL Hct (41-53) % MCV (80-100) fL MCH (26-34) PG MCHC (30-36) % RDW (11.6-14.8) % Plt Count (150-400) X10^3/uL Neut % (Auto) (50-75) % Lymph % (Auto) (25-40) % [place] % (Auto) (3-14) % Eos % (Auto) (2-4) % Baso % (Auto) (0-2) % Neut # (Auto) (6340-8226) /uL Lymph # (Auto) (3335-0203) /uL [place] # (Auto) (0-900) /uL Eos # (Auto) (0-450) /uL Baso # (Auto) (0-100) /uL PT (10.1-12.7) SECONDS INR (0.9-1.3) D-Dimer (<500) ng/ml Sodium (137-145) mmol/L Potassium (3.4-5.1) mmol/L Chloride (98-107) mmol/L Carbon Dioxide (22-32) mmol/L BUN (9-20) mg/dL Creatinine (0.66-1.25) mg/dL Estimated GFR (>60) mL/min BUN/Creatinine Ratio (6-22) Glucose (80-110) mg/dL Lactate 2.2 H 2.0 (0.7-2.1) mmol/L Calcium (8.4-10.2) mg/dL Total Bilirubin (0.2-1.3) mg/dL AST (17-59) IU/L ALT (<50) IU/L Alkaline Phosphatase (38-126) U/L Troponin I (0.01-0.034) ng/mL NT-Pro-B Natriuret Pep (<450) pg/mL Total Protein (6.3-8.2) g/dL Albumin (3.5-5.0) g/dL Globulin (1.7-4.1) g/dL Albumin/Globulin Ratio (1.0-2.8) SARS-CoV-2 (PCR) Negative (Negative) 04/26/23 Range/Units 19:30 WBC (4.5-11.0) X10^3/uL RBC (4.5-5.9) X10^6/uL Hgb (13.5-17.5) g/dL Hct (41-53) % MCV (80-100) fL MCH (26-34) PG MCHC (30-36) % RDW (11.6-14.8) % Plt Count (150-400) X10^3/uL Neut % (Auto) (50-75) % Lymph % (Auto) (25-40) % [place] % (Auto) (3-14) % Eos % (Auto) (2-4) % Baso % (Auto) (0-2) % Neut # (Auto) (5256-3438) /uL Lymph # (Auto) (1268-9714) /uL [place] # (Auto) (0-900) /uL Eos # (Auto) (0-450) /uL Baso # (Auto) (0-100) /uL PT (10.1-12.7) SECONDS INR (0.9-1.3) D-Dimer 699 H (<500) ng/ml Sodium (137-145) mmol/L Potassium (3.4-5.1) mmol/L Chloride (98-107) mmol/L Carbon Dioxide (22-32) mmol/L BUN (9-20) mg/dL Creatinine (0.66-1.25) mg/dL Estimated GFR (>60) mL/min BUN/Creatinine Ratio (6-22) Glucose (80-110) mg/dL Lactate (0.7-2.1) mmol/L Calcium (8.4-10.2) mg/dL Total Bilirubin (0.2-1.3) mg/dL AST (17-59) IU/L ALT (<50) IU/L Alkaline Phosphatase (38-126) U/L Troponin I (0.01-0.034) ng/mL NT-Pro-B Natriuret Pep (<450) pg/mL Total Protein (6.3-8.2) g/dL Albumin (3.5-5.0) g/dL Globulin (1.7-4.1) g/dL Albumin/Globulin Ratio (1.0-2.8) SARS-CoV-2 (PCR) (Negative) Urine Dip Bedside Urine Glucose Negative Bedside Urine Bilirubin - Negative Bedside Urine Ketone - Negative Urine Specific [place] 1.01 Bedside Urine Occult Blood - Negative Bedside Urine pH 7 Bedside Urine Protein - Negative Bedside Urine Urobilinogen - Negative Bedside Urine Nitrite - Negative Bedside Urine Leukocytes - Negative Esterase Imaging Data CT - cervical spine: Radiologist's Impression: PROCEDURE:? CT CERVICAL SPINE WO CON ? INDICATIONS:? fall/thinners ? TECHNIQUE:? Noncontrast 3 mm thick sections acquired from the skull base to the T4 level.? Sagittal and coronal reformats were then constructed.? For radiation dose reduction, the following was used:? automated exposure control, adjustment of mA and/or kV according to patient size.? ? COMPARISON:? [facility], CT, CT CERVICAL SPINE WO CON, 11/30/2022, 7:04. ? FINDINGS:? Image quality:? Excellent.? ? Bones:? No fractures or dislocations.? Visualized superior ribs are intact.? Expected appearance of ACDF from C5 through C7.? No evidence of hardware failure or loosening.? Cervical spondylitic change with bilateral foraminal narrowing at C3-C4 and C4- C5 and facet arthropathy.? ? Soft tissues:? Prevertebral soft tissues are normal in thickness.? No paraverte bral hematomas.? No apical pneumothoraces.? Ascending aorta measures at least 4.4 cm. ? ? IMPRESSION:? ? 1. No acute cervical fracture or dislocation. ? 2. Cervical spondylitic change. ? 3. Ascending aortic aneurysm.? Dictated by: Ru Cheatham M.D. on 04/26/2023 at 15:30 Chest x-ray: Radiologist's Impression: PROCEDURE:? XR CHEST 1V ? INDICATIONS:? Shortness of breath ? TECHNIQUE:? One view of the chest was acquired.? ? COMPARISON:? [facility], CR, XR CHEST 1V, 11/30/2022, 6:39.? [facility], CR, XR CHEST 1V, 10/23/2021, 20:36. ? FINDINGS:? ? Surgical changes and devices:? A cardiac pacemaker is seen with pulse generator in the left chest.? Cervical spinal fusion hardware is partially imaged. ? Lungs and pleura:? Lungs are clear.? No pleural effusions or pneumothorax.? ? Mediastinum:? Mediastinal contours appear normal.? Heart size is stable.? ? Bones and chest wall:? No suspicious bony lesions.? Overlying soft tissues appear unremarkable.? ? IMPRESSION:? No acute cardiopulmonary abnormality. ? ? ? Approved by: Johnnie Snyder M.D. on 04/26/2023 at 15:34? CT scan - head: Radiologist's Impression: PROCEDURE:? CT HEAD/BRAIN WO CON ? INDICATIONS:? fall/thinners ? TECHNIQUE:? Noncontrast 4.5 mm thick angled axial sections acquired from the foramen magnum to the vertex, with coronal and sagittal reformats.? For radiation dose reduction, the following was used:? automated exposure control, adjustment of mA and/or kV according to patient size.? ? COMPARISON:? [facility], CT, CT HEAD/BRAIN WO CON, 11/30/2022, 5:07. ? FINDINGS:? Image quality:? Excellent.? ? CSF spaces:? Basal cisterns are patent.? No extra-axial fluid collections.? The ventricles are symmetric in size and shape.? ? Brain:? No intracranial bleeds or masses.? There is cerebral volume loss for age, with resultant ventricular and sulcal prominence.? There are periventricular and deep white matter chronic small vessel ischemic changes.? Old left-sided lacunar infarction.? There is intracranial internal carotid artery atherosclerosis.? ? Skull and face:? Calvarium and visualized facial bones appear intact, without suspicious lesions.? ? Sinuses:? Visualized sinuses and mastoids are clear.? ? IMPRESSION:? No acute intracranial abnormality. ? ? Dictated by: Ru Cheatham M.D. on 04/26/2023 at 15:28 ? ? Approved by: Ru Cheatham M.D. on 04/26/2023 at 15:29 ? CT scan - chest: Radiologist's Impression: PROCEDURE:? CT ANGIO CHEST PE PROTOCOL ? INDICATIONS:? hypoxia with exertion ? TECHNIQUE:? After the administration of intravenous contrast, 2 mm thick sections acquired from the pulmonary apices to the posterior costophrenic angles.? 3-dimensional maximum intensity projection (MIP) coronal and sagittal reformats were then acquired through the thorax.? For radiation dose reduction, the following was used:? automated exposure control, adjustment of mA and/or kV according to patient size.? ? COMPARISON:? [facility], CT, CT ANGIO CHEST PE PROTOCOL, 01/28/2021, 11:47. ? FINDINGS:? Image quality:? Excellent.? ? Pulmonary arteries:? Pulmonary arteries demonstrate no intraluminal filling defects to suggest central pulmonary embolism.? There is enlargement of the pulmonary arteries, with the main pulmonary artery measuring up to 3.4 cm suggestive of pulmonary arteria l hypertension.? ? Lower Neck: No lymphadenopathy by size criteria. Thyroid:? Visualized thyroid demonstrates no discrete nodules. Axillae: No lymphadenopathy by size criteria. Chest Wall:? Unremarkable.? Bones: Visualized osseous structures demonstrate no suspicious lesions. ? Lungs and Airways:? No acute consolidation.? There is mild dependent atelectasis.? Bilateral indistinct ground-glass opacities with mild septal thickening are suggestive of mild pulmonary edema.? The trachea and central airways are patent. Pleura: No pneumothorax or pleural effusions.? ? Heart: Heart size is mildly enlarged.? No pericardial effusion.? There is a left atrial appendage excluder device. Thoracic Vessels:? There is mild aneurysmal dilatation of the thoracic aorta with the ascending aorta measuring up to 4.3 cm.? The aortic arch is also dilated, measuring up to 3.6 cm at the vertex.? The proximal descending thoracic aorta measures up to 3.6 cm.? At the level of the diaphragmatic hiatus, the aorta measures up to 2.8 cm.? Mediastinum and Eda: No lymphadenopathy by size criteria. Esophagus: No wall thickening. No hiatal hernia. ? Abdomen:? Visualized upper abdomen demonstrates a lobulated cyst within the right hepatic lobe. ? IMPRESSION:? ? 1. No evidence of pulmonary embolism. ? 2. Enlargement of the pulmonary arteries suggestive of pulmonary arterial hypertension. ? 3. No acute airspace consolidation.? There are indistinct ground-glass opacities and mild septal thickening suggestive of pulmonary edema. ? 4. Aneurysmal dilatation of the thoracic aorta as described.? ? ? Dictated by: Jamshid Stubbs M.D. on 04/26/2023 at 23:11 ? ? Approved by: Jamshid Stubbs M.D. on 04/26/2023 at 23:15 ? ECG Data Interpretation: Paced rhythm rate 76 complex similar to previous right bundle-branch block noted no obvious ST changes MDM Narrative Medical decision making narrative: Patient 88-year-old male multiple medical comorbidities presents today with variety of symptoms. He was lightheaded on the exercise bike this seems to happen his orthostatics are positive for for decreases to 95. This would suggest some dehydration. His creatinine is pretty stable 1.5 previously 1.4 so even slightly improved. He is having some worsening shortness of breath with exertion he is not hypoxic here in the ED. BNP his in the 900s it previously was greater than 1000 chest x-ray is clear lungs are clear no prior history of congestive heart failure. Last echo on record his from 2020 with an EF of 50- 55%. reports that he is an appointment with his paste up artist next week. D-dimer was added he is given 500 cc bolus. Other blood work is fairly unrem arkable without anemia or electrolyte abnormalities. No evidence of infection. Initial lactate was slightly high at 2.2 repeat was 2.0 without any intervention. Pacemaker has been interrogated it does need a battery change of the next 3 months. He does have a fast flutter but the pacemaker seems to be working. Fast flutter maybe causing some shortness of breath. He is given a 500 cc bolus of fluid D-dimer is 699 with an age correction it is negative. Years criteria is also negative. Patient has appointment Cardiology next week. Patient ambulated to restroom 88% on room air. Despite low probable risk of pulmonary embolism hypoxic and short of breath with ambulation now documented CT angio was done and does not show any evidence of pulmonary embolism there is no airspace consolidation possibly ground-glass opacities with mild pulmonary edema. Patient does not require oxygen at rest Dr. Mccartney updated patient's symptoms test results and accepts patient to observation Discharge Plan Departure Patient Disposition: Admitted as Observation Clinical Impression: Acute dehydration, CHF (congestive heart failure) Admit Date/Time: 04/26/23 23:50 Admit Provider: Tyrone Mccartney
[2023-04-26] MEDS: SODIUM CHLORIDE 0.9% 500 ML 1000 ML IV (19:43)
[2023-04-26 20:02] LABS: D Dimer 699 ng/ml (<500)
[2023-04-26 20:27] LABS: COVID19 -Nasal RAPID Negative (Negative)
--- NOTE | 2023-04-26 20:37 | PC.NURSE ---
Patient standing and taking steps in the room with walker (uses walker at baseline) oxygen saturation levels dropped to 88% on room air. Dr. Jenkins notified.
--- NOTE | 2023-04-26 21:33 | DI.CT.S_ITS ---
PROCEDURE: CT ANGIO CHEST PE PROTOCOL INDICATIONS: hypoxia with exertion TECHNIQUE: After the administration of intravenous contrast, 2 mm thick sections acquired from the pulmonary apices to the posterior costophrenic angles. 3-dimensional maximum intensity projection (MIP) coronal and sagittal reformats were then acquired through the thorax. For radiation dose reduction, the following was used: automated exposure control, adjustment of mA and/or kV according to patient size. COMPARISON: [facility], CT, CT ANGIO CHEST PE PROTOCOL, 01/28/2021, 11:47. FINDINGS: Image quality: Excellent. Pulmonary arteries: Pulmonary arteries demonstrate no intraluminal filling defects to suggest central pulmonary embolism. There is enlargement of the pulmonary arteries, with the main pulmonary artery measuring up to 3.4 cm suggestive of pulmonary arterial hypertension. Lower Neck: No lymphadenopathy by size criteria. Thyroid: Visualized thyroid demonstrates no discrete nodules. Axillae: No lymphadenopathy by size criteria. Chest Wall: Unremarkable. Bones: Visualized osseous structures demonstrate no suspicious lesions. Lungs and Airways: No acute consolidation. There is mild dependent atelectasis. Bilateral indistinct ground-glass opacities with mild septal thickening are suggestive of mild pulmonary edema. The trachea and central airways are patent. Pleura: No pneumothorax or pleural effusions. Heart: Heart size is mildly enlarged. No pericardial effusion. There is a left atrial appendage excluder device. Thoracic Vessels: There is mild aneurysmal dilatation of the thoracic aorta with the ascending aorta measuring up to 4.3 cm. The aortic arch is also dilated, measuring up to 3.6 cm at the vertex. The proximal descending thoracic aorta measures up to 3.6 cm. At the level of the diaphragmatic hiatus, the aorta measures up to 2.8 cm. Mediastinum and Eda: No lymphadenopathy by size criteria. Esophagus: No wall thickening. No hiatal hernia. Abdomen: Visualized upper abdomen demonstrates a lobulated cyst within the right hepatic lobe. IMPRESSION: 1. No evidence of pulmonary embolism. 2. Enlargement of the pulmonary arteries suggestive of pulmonary arterial hypertension. 3. No acute airspace consolidation. There are indistinct ground-glass opacities and mild septal thickening suggestive of pulmonary edema. 4. Aneurysmal dilatation of the thoracic aorta as described. Dictated by: Jamshid Stubbs M.D. on 04/26/2023 at 23:11 Approved by: Jamshid Stubbs M.D. on 04/26/2023 at 23:15
[2023-04-27] VITALS (7 sets, daily range): BP systolic 107–153; BP diastolic 69–94; PULSE 66–86; RESP 16–20; TEMP 36.2–36.8; O2SAT 95–100; BMI 25.5
--- NOTE | 2023-04-27 08:58 | CM.DANOTE ---
DCP: Chart review for case, met with patient at bedside, they agree to case management assessment. Completed DCP assessment based on information available. Patient is a 88 year old admitted for dizziness, hypoxia. Siri at bedside. Patient confirms that they both live at [facility]. She is independent, but he uses assistive services for bathing, transfers using WC and transfer chairs that they have borrowed from [employer]. states they plan to live in [place] and stay at [facility] until the end of life or ?when we can no longer afford it; we just got a rent increase?. Patient states he hope to return home today to spend the day with dog Leo. If SNF need he would prefer [facility], no [facility]. PCP: Diane Howard seen last week Payer: [employer] DME: 4WW DCP: Home with existing OP PT and use of gym at [facility]. Linsey Casey RN, CM Discharge Planning/Care Management CM Discharge Assessment Start: 04/27/23 08:51 Freq: Status: Active Protocol: Document 04/27/23 08:51 BQ (Rec: 04/27/23 08:53 BQ [id number]) Discharge Planning Assessment Assigned Dialysis Tech Linsey Casey RN, CM Advance Directives? Yes: POLST Advance Directives on File No History Provided By Patient,Significant Other, Medical Record Has Patient been admitted in last 30 No days? Prior Living Arrangements Apartment/Condo Comment lives at [facility] with Household Members spouse Type of transporation used prior to Relies on Others admit Facility Name Admitted From: [facility] Willing to Return to Facility? Yes Independent with ADL's No Is patient alert and oriented? Yes Needs Assistance With Bathing,Meal Prep,Home Chores / Shopping Caregiver for Another No Community Services used prior to Physical Therapy admission: DME Already Rented / Owned FWW / Walker Patient/Family Preference OP PT Therapy Barriers to Discharge No Comment May benefit from PT eval/treat Discharge Plan Home with Home Health Transportation Arrangement Spouse Additional Comment Will have to see how he does with P.T. If patient plan is home with home health No : Has signed face to face form been completed? Whiteboard Updated in Patient Room with Yes name and ext. # of Dialysis Tech Review Status In Process Next Review Type Continued Stay Review
[2023-04-27] MEDS: PANTOPRAZOLE DR 40 MG TABLET PO ×2 (10:22→21:03)
[2023-04-27] MEDS: LEVOTHYROXINE 88 MCG TABLET PO (10:22)
[2023-04-27] MEDS: AMIODARONE 200 MG TABLET PO (10:22)
[2023-04-27] MEDS: ATORVASTATIN 20 MG TABLET PO (10:23)
[2023-04-27] MEDS: ASPIRIN EC 81 MG TABLET PO (10:23)
[2023-04-27] MEDS: METFORMIN HCL 500 MG TABLET PO (10:23)
[2023-04-27] MEDS: glipiZIDE 5 MG TABLET 2.5 MG PO (10:52)
[2023-04-27 10:56] LABS: NT-proBNP (BNP-Adult 18+) 999 pg/mL (<450)
--- NOTE | 2023-04-27 11:02 | PT.IIE ---
Surgical History (Last Reviewed 04/26/23 @ 19:18 by Arlette Jenkins DO) H/O laminectomy H/O shoulder surgery H/O thumb surgery History of appendectomy History of bladder surgery History of cardiac cath (~2012) History of cholecystectomy (~2012) History of cystoscopy History of fusion of cervical spine History of lumbar fusion History of tonsillectomy History of vasectomy S/P drug eluting coronary stent placement Status post right foot surgery Medical History (Last Reviewed 04/26/23 @ 19:18 by Arlette Jenkins DO) Anxiety Arthritis CAD (coronary artery disease) DDD (degenerative disc disease), cervical Depression Diabetes Dyslipidemia Dysuria Elevated serum homocysteine level Heart attack History of angina History of CVA (cerebrovascular accident) History of dizziness History of esophageal reflux History of fatigue History of hematuria Impotence Lumbosacral radiculopathy at L5 Memory deficit Neuropathy of both feet Nocturia Nocturia Osteoarthritis Pacemaker (~2013) Paroxysmal A-fib 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 RBBB Renal insufficiency Sick sinus syndrome Sleep apnea (~2012) Spinal stenosis in cervical region Spinal stenosis of lumbar region Thyroid disease TIA (transient ischemic attack) Urinary retention Physical Therapy Inpatient Evaluation/Re-Eval M1 PT/OT-IP Prior Functional Status Start: 04/27/23 12:07 Freq: NEEDED Status: Active Protocol: Document 04/27/23 11:02 AB (Rec: 04/27/23 12:29 AB [id number]) Medical Review Prior Functional Status Medical History Reviewed Yes Communication able make to make needs known Mobility and Gait spouse in room and provided pt 's PLOF and home set up pt is modified independent with bed mobility, transfers and ambulation using 4WW but uses a transport w/c for long distance mobility due to decrease endurance. Activities of Daily Living and IADL's spouse stated that she assists pt with dressing and medication needs; staff assists pt with shower needs Social History Household Members spouse Living Arrangements Apartment/Condo Number of Floors (Floors) 3 or More Floors Number of Stairs To Enter/Railing? pt lives at [facility]: assisted livinrd floor with elevator access Home Environment Standard Height Toilet,Walk in Shower,Built-In Shower Seat, Elevator Home Equipment Four Wheel Walker,Raised Toilet Seat w/Armrests,Hand Held Shower,Grab Bars Near Toilet,Grab Bars In Shower Additional Social History Comment has a transport w/c M2 PT-IP Current Condition Start: 04/27/23 12:07 Freq: NEEDED Status: Active Protocol: Document 04/27/23 11:02 AB (Rec: 04/27/23 12:29 AB [id number]) Physical Therapy Current Condition Current Condition Evaluation Date 04/27/23 Treatment Diagnosis dehydration; CHF; difficulty in walking Onset Date 04/26/23 M3 PT-IP Subjective Start: 04/27/23 12:07 Freq: NEEDED Status: Active Protocol: Document 04/27/23 11:02 AB (Rec: 04/27/23 12:29 AB [id number]) Subjective Physical Therapy Visit Type Type Initial Evaluation Visit Start Time 11:02 Visit Stop Time 11:37 Total Visit Minutes 35 Number of MENTAL HEALTH PROFESSIONAL Visits 0 Physical Therapy Visit Comments Patient Comments agreeable to do PT Therapy Pain Assessment Pain Present Pain Present Denied Pain M4 PT-IP Mobility and Gait Start: 04/27/23 12:07 Freq: NEEDED Status: Active Protocol: Document 04/27/23 11:02 AB (Rec: 04/27/23 12:29 AB [id number]) PT-Bed Mobility Assessment Supine to Sit Supine to Sit Standby Assistance,Bedrails Sit to Supine Sit to Supine Standby Assistance PT-Transfer Assessment Sit to and From Stand Sit to and from Stand Contact Guard Assistance,1 Person Assistance,Use of Upper Extremities Equipment Transfer Assistive Device Gait Belt,Front Wheeled Walker Orthotic/Prosthetic Devices or Brace: No Comments Mobility Comments Pt supine in bed. spouse in room. BP in supine: 111/58. O2 sat: 96-100% NE: 86 pt completed bed mobility supine to sit SBA with cues. pt used bed rail to assist. stated that he has a night table he uses to assist him with bed mobility at home. able to sit on EOB SBA. BP checked: 90/55. no c /o dizziness/lightheadedness. Pt able to tolerate sitting on EOB for 3 more minutes and BP checked again: 124/74. completed sit to stand CGA. able to stand using FWW for support CGA. pt stated that he needs to use the toilet. assisted pt with urinal CGA for standing balance. BP checked in standin/64. pt agreed to ambulate and completed 75 ft using FWW CGA. no c/o dizziness/ lightheadedness. no SOB but took a deep breath after ambulation sitting on EOB. O2 sat: 100%. pt completed sit to supine SBA. positioned in bed. call light and table placed within reach. Nurse informed regarding BP and O2 sat. Gait Assessment Gait Gait Assistance Required: Contact Guard Assist Distance (Feet) 75 Able to Maintain Weight Bearing Status Yes During Gait Assistive Devices Assistive Device Gait Belt,Front Wheeled Walker Orthotic/Prosthetic Devices or Brace: No Gait Deviations General Gait Pattern Decreased Stride Length, Decreased Feet Clearance Factors Limiting Gait Function Factors Limiting Gait Function Decreased Activity Tolerance, Decreased Strength,Poor Balance,Poor Safety Awareness PT-Balance Assessment Sitting Balance and Reactions Static Sitting Balance Ability Normal Dynamic Sitting Balance Ability Good Standing Balance and Reactions Static Standing Balance Ability Fair Dynamic Standing Balance Ability Fair Device Used FWW M5 PT-IP Objective Assessments Start: 04/27/23 12:07 Freq: NEEDED Status: Active Protocol: Document 04/27/23 11:02 AB (Rec: 04/27/23 12:29 AB [id number]) Orientation Orientation/Cognition Level of Alertness Alert Orientation Name,Place,Situation Safety Awareness Decreased Safety Awareness Memory Description Short Term Impaired Gross Range of Motion Lower Extremity ROM Assessment Within Functional Limits Strength Lower Extremity Strength Assessment Within Functional Limits Muscle Tone Muscle Tone WNL Yes M6 PT-IP Treatment Start: 04/27/23 12:07 Freq: NEEDED Status: Active Protocol: Document 04/27/23 11:02 AB (Rec: 04/27/23 12:29 AB [id number]) Physical Therapy Treatment Education Education Provided Safety M7 PT-IP Assessment and Plan Start: 04/27/23 12:07 Freq: NEEDED Status: Active Protocol: Document 04/27/23 11:02 AB (Rec: 04/27/23 12:29 AB [id number]) PT Summary Assessment and Plan Potential Rehabilitation Potential Fair Status of Condition at Evaluation Evolving Summary Impairments Pain,ROM,Strength,Balance, Coordination,Sensation,Tone, Cognition,Bed Mobility, Transfers,Gait,Activity Tolerance Assessment Summary pt presented to the ED with c/ o lightheadedness and SOB. pt admitted for acute dehydration and CHF. pt requiring CGA with ambulation using FWW. Pt has orthostatic BP from BP of 111/58 in supine to 90/55 in sitting but without c/o dizziness/ lightheadedness. BP increased to 124/74 after a few minutes of sitting. pt lives at [facility] and spouse stated that pt has access to a call button if assistance is needed. pt also was receiving outpt PT at [facility]. pt may d/c back to [facility] with assistance and continue outpt PT. Goals Bed Mobility Goal Independent Transfer Goal Independent,Front Wheeled Walker,Four Wheeled Walker Gait Goal Independent,Front Wheel Walker ,Four Wheel Walker Gait Distance 100 Other Goals improve ambulation using 4WW 150 ft mod I Days to Meet Goals 10 Frequency of Treatment Frequency Of Treatment Once a Day Precautions Other Precautions safety Recommendations To Nursing Amount of Assist Needed 1 Person Assist Discharge Recommendations PT Discharge Recommendations Home with Assistance, Outpatient PT Transportation Needs at Discharge Private Vehicle
--- NOTE | 2023-04-27 12:06 | OT.IP.EVAL ---
Past Medical History (Last Reviewed 04/26/23 @ 19:18 by Arlette Jenkins DO) Anxiety Arthritis CAD (coronary artery disease) DDD (degenerative disc disease), cervical Depression Diabetes Dyslipidemia Dysuria Elevated serum homocysteine level Heart attack History of angina History of CVA (cerebrovascular accident) History of dizziness History of esophageal reflux History of fatigue History of hematuria Impotence Lumbosacral radiculopathy at L5 Memory deficit Neuropathy of both feet Nocturia Nocturia Osteoarthritis Pacemaker (~2013) Paroxysmal A-fib 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 RBBB Renal insufficiency Sick sinus syndrome Sleep apnea (~2012) Spinal stenosis in cervical region Spinal stenosis of lumbar region Thyroid disease TIA (transient ischemic attack) Urinary retention Surgical History (Last Reviewed 04/26/23 @ 19:18 by Arlette Jenkins DO) H/O laminectomy H/O shoulder surgery H/O thumb surgery History of appendectomy History of bladder surgery History of cardiac cath (~2012) History of cholecystectomy (~2012) History of cystoscopy History of fusion of cervical spine History of lumbar fusion History of tonsillectomy History of vasectomy S/P drug eluting coronary stent placement Status post right foot surgery Occupational Therapy Inpatient Evaluation/Re-Eval M1 PT/OT-IP Prior Functional Status Start: 04/27/23 12:11 Freq: NEEDED Status: Active Protocol: Document 04/27/23 11:38 [facility] (Rec: 04/27/23 12:36 [facility] [id number]) Medical Review Prior Functional Status Communication Independent Mobility and Gait Pt uses his 4ww in the apartment and use of transport wc for longer distances. Pt currently has PT at [facility] and has been trying to work on being able to walk to the dining room with his 4ww. Activities of Daily Living and IADL's Pt has assist for bathing from the staff and his assist with his socks/shoes, and to tuck in his shirt in the back. Pt does the bills and medications. Social History Household Members spouse Living Arrangements Apartment/Condo Number of Floors (Floors) 3 or More Floors Number of Stairs To Enter/Railing? Use of elevator as pt lives on the 3rd floor. Home Environment Walk in Shower Home Equipment Four Wheel Walker,Raised Toilet Seat w/Armrests,Hand Held Shower,Grab Bars Near Toilet,Grab Bars In Shower Additional Social History Comment Pt has a transport wheel chair . pt has a built in and flip down shower bench in the walk in shower. M2 OT-IP Current Condition Start: 04/27/23 12:11 Freq: Status: Active Protocol: Document 04/27/23 11:38 [facility] (Rec: 04/27/23 12:36 [facility] [id number]) Occupational Therapy Current Condition Current Condition Evaluation Date 04/27/23 Treatment Diagnosis CHF/dehydration Diagnosis Onset Date 04/26/23 M3 OT- IP Subjective and Pain Start: 04/27/23 12:11 Freq: Status: Active Protocol: Document 04/27/23 11:38 [facility] (Rec: 04/27/23 12:36 [facility] [id number]) OT- Subjective Occupational Therapy Visit Type Type Initial Evaluation Visit Start Time 11:38 Visit Stop Time 12:06 Total Visit Minutes 28 Occupational Therapy Visit Comments Patient Comments Pt agreed to get up to the recliner for lunch. Pt's present during OT eval. Patient/Caregiver Goals TO go home and resume PT services at [facility] OT Pain Assessment Pain When Pain Assessed At Rest Pain Present Pain Present Denied Pain M4 OT- IP ADL's Start: 04/27/23 12:11 Freq: Status: Active Protocol: Document 04/27/23 11:38 [facility] (Rec: 04/27/23 12:36 [facility] [id number]) OT [id number] Comments OT Self-Feeding Comments Not at meal time. OT ADL-Grooming General Evaluation Grooming Ability Independent OT ADL-Oral Care General Eval Oral Care Ability Independent OT ADL-Dressing General Eval Lower Body Dressing Ability Minimal Assistance Comments OT Dressing Comments Assist to help straighten out his socks. Pt's assist him at home at needed- mainly just for his socks and shoes. OT ADL-Toileting Comments OT Toileting Comments Pt not having to use the toilet at this time. Pt has to urinate frequently at night and uses the urinal at night. OT ADL-Bathing Comments OT Bathing Comments Not performed. M5 OT- IP IADL's Start: 04/27/23 12:11 Freq: Status: Active Protocol: Document 04/27/23 11:38 [facility] (Rec: 04/27/23 12:36 [facility] [id number]) OT-Instrumental Activities of Daily Living Deficits IADL Deficits Identified Deficits Home Safety Awareness Awareness of Need for Assistance at Home Good Awareness Ability to Problem Solve Emergency Able to Problem Solve Situations Home Safety Comments Pt has a Life Alert he wears. Medication Management Medication Management Caregiver Administers Money Management Money Management Caregiver Provides Assistance Meal Preparation Meal Preparation Caregiver Provides Assist Retail Attendant Retail Attendant Caregiver Provides Assist M6 OT- IP Functional Cognition Start: 04/27/23 12:11 Freq: Status: Active Protocol: Document 04/27/23 11:38 [facility] (Rec: 04/27/23 12:36 [facility] [id number]) Cognitive Factors Limiting Selfcare Function Cognitive Ability Level of Alertness Alert Patient Orientation Name,Place Attention Span Ability Capable of Focused Attention, Capable of Sustained Attention Ability to Follow Commands Able to Follow One Step Commands Memory Description Short Term Impaired Problem Solving Ability Needs Assist to Identify Solutions Cognitive Comments Cognitive Assessment Comments Pt needing safety cues and reminders to push up from surfaces sitting up to stand to the FWW, always keep the FWW in front of him, and to reach back with his hands before sitting down. Pt's during OT eval appropriately giving pt safety reminders and states always does at home. OT- Vision and Hearing OT- Vision Assessment Visual Acuity WFL Visual Attentiveness WFL Occular Pursuits WFL M7 OT- IP Mobility and Balance Start: 04/27/23 12:11 Freq: Status: Active Protocol: Document 04/27/23 11:38 [facility] (Rec: 04/27/23 12:36 [facility] [id number]) OT- Bed Mobility Assessment Supine to Sit Supine to Sit Assist Standby Assistance OT-Transfer Assessment Sit to and From Stand Sit to and from Stand Standby Assistance Transfers Transfer Ability Standby Assistance,Contact Guard Assistance Technique Transfer Destination Bed,Chair Transfer Technique Stand Step Pivot Devices Transfer Assistive Devices Gait Belt,Front Wheeled Walker Comments Mobility Comments Pt increased time to get out of bed and initially lean to the right while seated on the edge of the bed. CLose SBA to stand and vc for FWW safety and hand positioning to stand up. SBA with FWW and occasionally CGA assist to keep the FWW closer to him. OT- Balance Assessment Sitting Balance and Reactions Static Sitting Balance Ability Fair Dynamic Sitting Balance Ability Fair Standing Balance and Reactions Static Standing Balance Ability Fair Dynamic Standing Balance Ability Fair M8 OT- IP Objective Assessments Start: 04/27/23 12:11 Freq: Status: Active Protocol: Document 04/27/23 11:38 [facility] (Rec: 04/27/23 12:36 [facility] [id number]) OT Gross Range of Motion Upper Extremity Range of Motion ROM Impairments Decreased at end ROM however still functional for his needs OT Strength Upper Extremity Strength Assessment Within Functional Limits OT- Coordination Assessment Upper Extremity Finger to Nose Test Bilateral UE Impaired Comments Coordination Comments Right hand a little more impaired then his left hand. Right finger to the crease of his nose and left hand just off the tip on his nose. M9 OT- IP Assessment and Plan Start: 04/27/23 12:11 Freq: Status: Active Protocol: Document 04/27/23 11:38 [facility] (Rec: 04/27/23 12:36 [facility] [id number]) OT Summary Assessment and Plan Potential Rehabilitation Potential Good Analytic Complexity at Evaluation Low Summary OT Impairments Balance,Functional Mobility, Dressing,Toileting,Toilet Transfers,Shower Transfers, Activity Tolerance Progress Towards Goals Progressing Toward Goals Assessment Summary Pt low complexity and main barrier are decreased dynamic balance and activity tolerance . Pt and his feel that he is close to his baseline at this time. Pt's states will continue to provide him with assist for ADL needs and safety awareness. Pt and wanting pt to continue PT at [facility] and would be beneficial for the pt to continue. Also talked to pt to be sure to hydrate at home. Pt's states pt has previous had drinks with electrolytes but since moving to [facility] has not been having the hydrating drinks. Pt's states to have restart the drinks again. Pt to go home with assist and PT at [facility]. Goals Dressing Goal Moderate Assistance Toileting Goal Independent Toilet Transfer Goal Independent Days to Meet Goals 3 Frequency of Treatment Frequency Of Treatment Once a Day Treatment Plan OT Treatment Plan ADL Training,Functional Mobility,Patient/Family Education,Discharge Planning Discharge Recommendations OT Discharge Recommendations Home with Assistance, Outpatient PT Transportation Needs at Discharge Private Vehicle
[2023-04-27] MEDS: FUROSEMIDE 20 MG TABLET PO (14:21)
[2023-04-27] MEDS: MIRTAZAPINE 15 MG TABLET PO (17:33)
--- NOTE | 2023-04-27 18:33 | DI.ECHO.S_ITS ---
[place] +---------+ [facility] +---------+ : : [address] : : : : [id number] : : : : Phone: [phone]+ Echocardiogram Report + + :Name: KENNETH PEREZ Study Date: 04/28/2023 Height: 69 in : :[facility] ReadingLocation: Weight: 172 lb : : Gender: Male BSA: 1.9 m2 : :: 1935 Age: 88 yrs BP: 148/94 mmHg: :Reason For Study: Pulmonary Edema : :Ordering Physician: JEN, : :ADIEL Performed By: Kira Almonte : :Referring: ADIEL LI : + + Interpretation Summary 1) Normal left ventricular size with moderately reduced systolic function (EF 35-40%). 2) There is a marked dyssynchronous contraction pattern, consistent with a conduction abnormality. 3) The right ventricle is normal size. Right ventricular systolic function is mildly reduced. There is a pacemaker lead in the right ventricle. 4) There is mild mitral regurgitation. 5) There is mild aortic regurgitation. 6) Compared to the Echo done 03/16/2021, LVEF has decreased from 50-55% to 35- 40% on this study. Procedure: A two-dimensional transthoracic echocardiogram with color flow and Doppler was performed. The study quality was technically difficult. Comparison is made with the echocardiogram of 03/15/2021. A contrast injection of Definity was performed to improve assessment of LV function. The patient has a paced rhythm. Left Ventricle: The left ventricle is normal in size. The ejection fraction is estimated to be 35-40%. There is a marked dyssynchronous contraction pattern, consistent with a conduction abnormality. Diastolic function could not be accurately assessed due to paced rhythm. 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 The right ventricle is normal size. Right ventricular systolic function is mildly reduced. Atria: The left atrial size is normal. Right atrial size is normal. There is no Doppler evidence for an interatrial shunt. Mitral Valve: The mitral valve leaflets are slightly calcified. There is no mitral valve stenosis. There is mild mitral regurgitation. Aortic Valve: The aortic valve is trileaflet. The aortic valve opens well. The aortic valve is slightly calcified. There is no aortic valve stenosis. There is mild aortic regurgitation. Tricuspid Valve: The tricuspid valve is normal. There is no tricuspid stenosis. There is mild tricuspid regurgitation. Pulmonic Valve: The pulmonic valve is not well visualized. There is no pulmonic valvular stenosis. There is mild pulmonic regurgitation. Great Vessels: The aortic root is mildly dilated. The ascending aorta is mildly enlarged. The pulmonary artery is normal size. The IVC is of normal diameter and collapses greater than 50% with a sniff. This suggests a low right atrial pressure of 3 mm Hg. Pericardium/ Pleura There is no pericardial effusion. There is no pleural effusion. MMode/2D Measurements & Calculations LVIDd: 3.0 cm LVOT diam: 2.0 cm LVIDs: 2.1 cm Ao root diam: 4.0 cm FS: 30.0 % asc Aorta Diam: 4.0 cm IVSd: 1.4 cm LVPWd: 1.2 cm LV ortega. diameter/BSA (cm/m^2): 1.5 LV sys. diameter/BSA (cm/m^2): 1.1 LA A2 area: 17.4 cm2 RA long axis: 4.2 cm LA A4 area: 15.5 cm2 RA area: 10.6 cm2 LA length (vol): 5.0 cm RA vol: 22.4 ml LA vol: 46.2 ml RA : 11.5 ml/m2 LA vol index: 23.9 ml/m2 RVD1 (basal): 3.1 cm LVLs ap4: 6.3 cm LVLd ap2: 7.0 cm TAPSE_phl: 1.9 cm LVLs ap2: 6.6 cm Doppler Measurements & Calculations Ao V2 max: 115.2 cm/sec LVOT Max Santiago: 78.2 cm/sec Ao V2 mean: 76.8 cm/sec LV V1 max P.4 mmHg Ao max P.0 mmHg LV V1 VTI: 12.6 cm Ao mean P.0 mmHg SHAKILA(I,D): 1.8 cm2 Ao V2 VTI: 22.0 cm SHAKILA(V,D): 2.1 cm2 sev ratio: 0.58 SHAKILA indexed to BSA (cm^2/m^2): 0.93 MV E max santiago: 92.1 cm/sec TR max santiago: 203.2 cm/sec MV A max santiago: 58.3 cm/sec TR max P.9 mmHg MV E/A: 1.6 PA V2 max: 86.5 cm/sec MV dec time: 0.13 sec PA V2 mean: 55.5 cm/sec PA mean P.5 mmHg PA pr(Accel): 61.0 mmHg SV(LVOT): 39.7 ml AV VR_phl: 0.68 SHAKILA(VTI)/BSA_phl: 0.93 Reading Physician:08:46 AM
--- NOTE | 2023-04-27 18:36 | P.HP_ITS ---
History of Present Illness History of Present Illness Date Patient Seen: 04/27/23 Time Patient Seen: 08:00 Chief complaint: Dizzy, feels like he is going to pass out Narrative: This is a very pleasant 88-year-old patient who is well known to me. He was at his physical therapy appointment and the SALES LEDGER CLERK asked him if he felt poorly the said yes he did feel poorly he felt that he was a little dizzy and he felt a little lightheaded. The SALES LEDGER CLERK called 911 and he was brought to the ER. In the ER he underwent extensive testing. He would fallen the night before. He would a CT of his head which was negative he had a CT of his neck which was negative for fracture he then had a chest x-ray which showed maybe some mild pulmonary edema and then had a positive D-dimer and a CT angiogram was done which was negative other than some mild pulmonary edema. The patient was not hypoxic his O2 sats were 93-98% in the ER. Apparently did show some orthostatic hypotension and so they gave him 500 cc of IV fluid. He had mild hypoxemia with ambulation on room air down to 88%. Patient never required any oxygen. He was admitted to the hospital for further monitoring and treatment. Patient continued to have significant orthostatic hypotension. Patient continued to have episodes of rapid breathing where he feels short of breath that would last really just for minute. Then in between he would have no symptoms and never had any hypoxemia. He is had history of this probably for the last year and it seems to be getting worse and is more prominent at night when he lays down. His pacemaker was interrogated and apparently he will need a new mattery within 3 months. He is appointment with his mold yard supervisor Dr. villarreal on July 03 Past medical history: 1. CVA/TIA in 2018. Patient has had orthostatic hypotension since that time. 2. AFib flutter. He had a pacemaker placed 07/07/2013 3. NSTEMI in 09/23/2020. He underwent PCI of his LAD with a drug-eluting stent. 4. CVA in 5. Diabetes on oral medications fairly well-controlled 6. Hyponatremia 7. Chronic kidney disease, stage III 8. Obstructive sleep apnea 9. CAD 10. Anxiety 11. Depression 12. GERD Past surgical history 1. Appendectomy 2. Back surgery in September of 1996 3. Cardiac catheterization 4. Cardiac catheterization October of 2018 5. Cardiac pacemaker placement 03/30 6. Cardiac surgery had LA et occluded at [facility] 7. Lumbar fusion 8. EGD Health related behavior patient does not smoke and does not drink alcohol and is fairly inactive Social history: Patient is and his is very attentive and they live together in assisted care. Family history: Mom had Alzheimer's Dad had tuberculosis at age 40 Allergies: Muscular pain with statins Piroxicam GI intolerance PFSH Medical History Anxiety Arthritis CAD (coronary artery disease) DDD (degenerative disc disease), cervical Depression Diabetes Dyslipidemia Dysuria Elevated serum homocysteine level Heart attack History of angina History of CVA (cerebrovascular accident) History of dizziness History of esophageal reflux History of fatigue History of hematuria Impotence Lumbosacral radiculopathy at L5 Memory deficit Neuropathy of both feet Nocturia Nocturia Osteoarthritis Pacemaker (~2013) Paroxysmal A-fib 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 RBBB Renal insufficiency Sick sinus syndrome Sleep apnea (~2012) Spinal stenosis in cervical region Spinal stenosis of lumbar region Thyroid disease TIA (transient ischemic attack) Urinary retention Surgical History H/O laminectomy H/O shoulder surgery H/O thumb surgery History of appendectomy History of bladder surgery History of cardiac cath (~2012) History of cholecystectomy (~2012) History of cystoscopy History of fusion of cervical spine History of lumbar fusion History of tonsillectomy History of vasectomy S/P drug eluting coronary stent placement Status post right foot surgery Social History marital status: details: aisha Horner, lives in [place] household members: spouse lives independently: Yes caregiver/support person: No housing: house Smoking Status: Never smoker alcohol intake: current substance use type: does not use Meds Home Medications and Allergies Home Medications Medication Instructions Recorded Confirmed Type levothyroxine 75 mcg tablet 88 mcg PO QAM 08/27/18 04/27/23 History aspirin 81 mg tablet,delayed 81 mg PO QAM 12/24/18 04/27/23 History release (Adult Low Dose Aspirin) atorvastatin 20 mg tablet (Lipitor) 20 mg PO QAM 09/23/20 04/27/23 History duloxetine 30 mg capsule,delayed 30 mg PO BEDTIME 09/23/20 04/27/23 History release esomeprazole magnesium 40 mg 40 mg PO BID 09/23/20 04/27/23 History capsule,delayed release magnesium oxide 400 mg (241.3 mg 400 mg PO BID #180 tabs 10/08/20 04/27/23 Rx magnesium) tablet glipizide 2.5 mg tablet, extended 2.5 mg PO DAILY 01/14/21 04/27/23 History release 24 hr metoprolol succinate 25 mg 25 mg PO DAILY 03/14/21 04/27/23 History tablet,extended release 24 hr amiodarone 200 mg tablet (Pacerone) 100 mg PO DAILY 10/23/21 04/27/23 History ticagrelor 90 mg tablet (Brilinta) 90 mg PO BID 10/23/21 04/27/23 History Tylenol 500 mg PO 1XD 04/27/23 04/27/23 History amiodarone 200 mg tablet 200 mg PO DAILY 04/27/23 04/27/23 History aspirin 81 mg tablet 81 mg PO DAILY 04/27/23 04/27/23 History atorvastatin 20 mg tablet 20 mg PO DAILY 04/27/23 04/27/23 History duloxetine 20 mg capsule,delayed 30 mg PO DAILY 04/27/23 04/27/23 History release esomeprazole magnesium 40 mg 40 mg PO BID 04/27/23 04/27/23 History capsule,delayed release glipizide 2.5 mg tablet, extended 2.5 mg PO QAM 04/27/23 04/27/23 History release 24 hr levothyroxine 88 mcg tablet 88 mcg PO DAILY 04/27/23 04/27/23 History metformin 500 mg tablet 500 mg PO DAILY 04/27/23 04/27/23 History mirtazapine 15 mg tablet 15 mg PO ONCE PM 04/27/23 04/27/23 History nitroglycerin 0.4 mg sublingual 0.4 mg sublingual Q5-15M PRN chest 04/27/23 04/27/23 History tablet pain ondansetron 4 mg disintegrating 4 mg PO Q8H PRN nausea 04/27/23 04/27/23 History tablet ticagrelor 90 mg tablet (Brilinta) 90 mg PO BID 04/27/23 04/27/23 History ticagrelor 90 mg tablet (Brilinta) 90 mg PO BID 04/27/23 04/27/23 History Allergies Allergy/AdvReac Type Severity Reaction Status Date / Time [id number] Reductase Allergy Intermediate MUSCLE PAIN Verified 11/15/22 11:18 Inhibitor [[id number] REDUCTASE INHIBITOR] piroxicam [PIROXICAM] Allergy Mild NAUSEA, Verified 11/15/22 11:18 VOMITING dabigatran etexilate AdvReac Hematuria Verified 11/15/22 11:18 Review of Systems Review of Systems Narrative: 12 point review of systems is negative other than above Exam Vital Signs (past 8 hours): - 04/27/23 12:00 04/27/23 16:00 04/27/23 18:12 Temperature 97.6 F 97.9 F Pulse Rate 70 78 Pulse Rate [Orthostatic Lying] 66 Pulse Rate [Orthostatic Sitting] 84 Pulse Rate [Orthostatic Standing] 86 Respiratory Rate 16 16 Blood Pressure 111/76 120/84 Blood Pressure [Orthostatic Lying] 133/69 Blood Pressure [Orthostatic Sitting] 107/82 Blood Pressure [Orthostatic Standing] 122/74 Pulse Oximetry 99 100 Oxygen Flow Rate 0 0 Oxygen Delivery Method Room Air Oxygen Flow Rate 0 Narrative Exam Narrative: Afebrile vital signs are stable HEENT is unremarkable Patient is sitting upright and is alert and oriented x3 in no apparent distress with no difficulty breathing and stable on room air Neck: Supple without adenopathy or thyromegaly or bruits Chest: Clear to auscultation without wheezes rhonchi or crackles Cor: Regular rate and rhythm without a murmur Abdomen: Positive bowel sounds, soft, nontender Extremities: Pulses are intact 1 to 2+ No edema Neurologic exam is nonfocal Objective Labs 04/26/23 14:50 04/26/23 14:50 Labs: Laboratory Results - last 24 hr 04/26/23 04/26/23 04/27/23 19:30 19:30 10:25 D-Dimer 699 H NT-Pro-B Natriuret Pep 999 H SARS-CoV-2 (PCR) Negative Assessment & Plan Assessment & Plan narrative: 80-year-old male with multiple medical problems admitted with orthostatic hypot ension of unclear etiology and hypoxemia with exertion Assessment 1. Possible pulmonary edema. Last echo was August of 2022 and showed ejection fraction 55-60%. Troponin and CKs were negative on admit. Certainly his breathing pattern of rapid breathing maybe atypical presentation of fluid overload. He was given 20 mg of Lasix and did have significant urine output and seems to be feeling better. I think probably we could give this to him to take as needed if he is having these respiratory symptoms. I am hesitant to put him on this scheduled because of his orthostatic hypotension and his tenuous blood pressure. We will repeat an echo. We will repeat labs in the morning. He is appointment next week as his mold yard supervisor and will discuss with him as well Assessment 2. History of coronary artery disease with no acute symptoms Plan: CK troponins negative. Will repeat echo in the morning Assessment 3. Depression and anxiety Plan: Will continue duloxetine and Remeron at current dosing Assessment 4. Hypothyroidism Plan: Will check TSH in a.m. labs Assessment 5. AFib flutter with pacemaker Plan: Continue Brilinta and amiodarone per Cardiology Assessment 6. Type 2 diabetes with good blood sugars Plan: Continue on metformin and glipizide and encouraged them to check his blood sugars as outpatient Assessment 7. History of falling. Patient was evaluated by PT and OT and felt stable to be discharged to home with assist and continue outpatient treatment. CT scan of neck and head were negative and no complaints today problems 75 minutes was spent in patient in reviewing his chart, meeting with physicians and evaluating workup in meeting with patient and his and formulating a plan and documentation Code status is DNR DNI
[2023-04-27] MEDS: DULOXETINE 20 MG CAPSULE PO (20:20)
[2023-04-28] VITALS: BP 134/74; PULSE 70; RESP 18; TEMP 36.3; O2SAT 97
[2023-04-28 03:31] VITALS: BP 135/80; PULSE 83; RESP 18; TEMP 36.6; O2SAT 94
[2023-04-28] MEDS: LEVOTHYROXINE 88 MCG TABLET PO (05:33)
[2023-04-28 06:00] LABS: Alanine Aminotransferase 46 IU/L (<50); Albumin 3.8 g/dL (3.5-5.0); Albumin Globulin Ratio 1.2 (1.0-2.8); Alkaline Phosphatase 92 U/L (38-126); Aspartate Aminotransferase 56 IU/L (17-59); BUN Creatinine Ratio 12.2 (6-22); Bilirubin Total 0.8 mg/dL (0.2-1.3); Blood Urea Nitrogen 18 mg/dL (9-20); Calcium 8.8 mg/dL (8.4-10.2); Carbon Dioxide 24 mmol/L (22-32); Chloride 100 mmol/L (98-107); Estimated Glomerular Filt Rate 45 mL/min (>60); Globulin 3.1 g/dL (1.7-4.1); Glucose 168 mg/dL (80-110); HEMOLYSIS < 15 (0-50); Potassium 4.3 mmol/L (3.4-5.1); Sodium 133 mmol/L (137-145); Total Protein 6.9 g/dL (6.3-8.2)
[2023-04-28 06:02] LABS: Add Manual Diff / Slide Review NO; Basophils Absolute Auto 0 /uL (0-100); Basophils Percent Auto 0.9 % (0-2); Eosinophils Absolute Auto 100 /uL (0-450); Eosinophils Percent Auto 2.2 % (2-4); Hematocrit 35.5 % (41-53); Lymphocytes Absolute Auto 1200 /uL (1100-4500); Lymphocytes Percent Auto 26.5 % (25-40); Mean Corpuscular HGB Conc 33.9 % (30-36); Mean Corpuscular Hemoglobin 29.5 PG (26-34); Mean Corpuscular Volume 87.2 fL (80-100); Monocytes Absolute Auto 600 /uL (0-900); Neutrophils Absolute Auto 2500 /uL (1500-7000); Neutrophils Percent Auto 57.4 % (50-75); Platelet Count 230 X10^3/uL (150-400); Red Blood Cell Count 4.07 X10^6/uL (4.5-5.9); Red Cell Distribution Width 16.3 % (11.6-14.8); White Blood Cell Count 4.4 X10^3/uL (4.5-11.0)
[2023-04-28 08:40] VITALS: BP 126/67; BP 127/81; BP 92/50; PULSE 71; PULSE 88; O2SAT 97
[2023-04-28] MEDS: DULOXETINE 20 MG CAPSULE PO (08:53)
[2023-04-28] MEDS: ASPIRIN EC 81 MG TABLET PO (08:53)
[2023-04-28] MEDS: METFORMIN HCL 500 MG TABLET PO (08:54)
[2023-04-28] MEDS: ATORVASTATIN 20 MG TABLET PO (08:54)
[2023-04-28] MEDS: glipiZIDE 5 MG TABLET 2.5 MG PO (09:03)
[2023-04-28] MEDS: AMIODARONE 200 MG TABLET PO (09:04)
--- NOTE | 2023-04-28 09:17 | P.DS_ITS ---
History of Present Illness History of Present Illness Date Patient Seen: 04/28/23 Time Patient Seen: 08:50 Chief complaint: Dizzy, feels like he is going to pass out Narrative: CC: weakness, desatting on exertion Feeling well this morning eating breakfast with gusto and feels ready to go home. PT daisy yesterday considers him acceptable for discharge - labs this morning and echo read from yesterday do not show any findings requiring inpatient management. He has imminent appointment with quill cleaner in 2 days to consider battery replacement for his pacemaker. Still an acute fall risk and does have some orthostatic issues. Will need to come in for hospital follow up with our clinic also in next couple weeks. Discharge Providers Provider Date of admission: 04/26/23 23:50 Discharge Date: 04/28/23 Primary care physician: Diane Howard MD Consults: 04/27/23 08:53 Consult to Discharge Planning Routine Comment: Consult to Occupational Therapy Evaluate & Treat Comment: Physician Instructions: Evaluate and treat Consult to Physical Therapy Evaluate & Treat Comment: Physician Instructions: Evaluate and Treat Discharge provider: Tyrone Mccartney MD Summary Hospital Course Discharge Diagnosis: #possible pulmonary edema in setting of known #congestive heart failure, systolic and diastolic, acute on chronic #Pacemaker in place with upcoming need for battery change #aflutter #History of coronary artery disease with no acute symptoms #Depression and anxiety #Hypothyroidism #non insulin dependent Type 2 diabetes #History of falling Hospital Course: Mr. Kasper was admitted and recieved gentle IVF and diuresis. He worked with PT who agree he is well enough to go home. He will be seeing cardiology soon for a pacemaker battery update. He did have some drop in his ejection fraction since previous echo.Otherwise labs adn imaging unremarkable. With his multitude of medical issues aggressive treatment was infeasible and I am glad to see him looking well enough to go home today. He is ambulating eating going to bathroom mentating about baseline. [facility] Status at Discharge Cognitive/behavioral status at discharge: calm Functional status at discharge: uses cane/walker Overall status at discharge: patient is back to baseline Exam Vital Signs (past 8 hours): - 04/28/23 03:31 04/28/23 08:40 04/28/23 08:40 Temperature 97.8 F Pulse Rate 83 71 Pulse Rate [Orthostatic Lying] 71 Pulse Rate [Orthostatic Sitting] 88 Pulse Rate [Orthostatic Standing] 88 Respiratory Rate 18 Blood Pressure 135/80 127/81 Blood Pressure [Orthostatic Lying] 127/81 Blood Pressure [Orthostatic Sitting] 126/67 Blood Pressure [Orthostatic Standing] 92/50 L Pulse Oximetry 94 97 Oxygen Flow Rate 0 0 Oxygen Delivery Method Room Air Oxygen Flow Rate 0 Narrative Exam Narrative: cheerful elder sitting up eating breakfast with at bedside Resp Other: moving air well clear to auscultation bilaterally Cardio Other: regular rate S1/S2 GI Other: active bowel sounds soft nontender Neuro General: patient alert, patient awake and tone normal Extrem Other: no pedal edema Objective Labs 04/28/23 05:32 04/28/23 05:32 Labs: Laboratory Results - last 24 hr 04/27/23 04/28/23 04/28/23 10:25 05:32 05:32 WBC 4.4 L RBC 4.07 L Hgb 12.0 L Hct 35.5 L MCV 87.2 MCH 29.5 MCHC 33.9 RDW 16.3 H Plt Count 230 Neut % (Auto) 57.4 Lymph % (Auto) 26.5 [place] % (Auto) 13.0 Eos % (Auto) 2.2 Baso % (Auto) 0.9 Neut # (Auto) 2500 Lymph # (Auto) 1200 [place] # (Auto) 600 Eos # (Auto) 100 Baso # (Auto) 0 Sodium 133 L Potassium 4.3 Chloride 100 Carbon Dioxide 24 BUN 18 Creatinine 1.48 H Estimated GFR 45 L BUN/Creatinine Ratio 12.2 Glucose 168 H Calcium 8.8 Total Bilirubin 0.8 AST 56 ALT 46 Alkaline Phosphatase 92 NT-Pro-B Natriuret Pep 999 H Total Protein 6.9 Albumin 3.8 Globulin 3.1 Albumin/Globulin Ratio 1.2 TSH 04/28/23 05:32 WBC RBC Hgb Hct MCV MCH MCHC RDW Plt Count Neut % (Auto) Lymph % (Auto) [place] % (Auto) Eos % (Auto) Baso % (Auto) Neut # (Auto) Lymph # (Auto) [place] # (Auto) Eos # (Auto) Baso # (Auto) Sodium Potassium Chloride Carbon Dioxide BUN Creatinine Estimated GFR BUN/Creatinine Ratio Glucose Calcium Total Bilirubin AST ALT Alkaline Phosphatase NT-Pro-B Natriuret Pep Total Protein Albumin Globulin Albumin/Globulin Ratio TSH 3.90 PFSH Medical History Anxiety Arthritis CAD (coronary artery disease) DDD (degenerative disc disease), cervical Depression Diabetes Dyslipidemia Dysuria Elevated serum homocysteine level Heart attack History of angina History of CVA (cerebrovascular accident) History of dizziness History of esophageal reflux History of fatigue History of hematuria Impotence Lumbosacral radiculopathy at L5 Memory deficit Neuropathy of both feet Nocturia Nocturia Osteoarthritis Pacemaker (~2013) Paroxysmal A-fib 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 RBBB Renal insufficiency Sick sinus syndrome Sleep apnea (~2012) Spinal stenosis in cervical region Spinal stenosis of lumbar region Thyroid disease TIA (transient ischemic attack) Urinary retention Surgical History H/O laminectomy H/O shoulder surgery H/O thumb surgery History of appendectomy History of bladder surgery History of cardiac cath (~2012) History of cholecystectomy (~2012) History of cystoscopy History of fusion of cervical spine History of lumbar fusion History of tonsillectomy History of vasectomy S/P drug eluting coronary stent placement Status post right foot surgery Social History marital status: details: aisha Horner, lives in [place] household members: spouse lives independently: Yes caregiver/support person: No housing: house Smoking Status: Never smoker alcohol intake: current substance use type: does not use Discharge Assessment & Plan Assessment and Plan Assessment: 80-year-old male with multiple medical problems admitted with orthostatic hypotension of unclear etiology and hypoxemia with exertion #possible pulmonary edema in setting of known #congestive heart failure, systolic and diastolic, acute on chronic Previous echo was August of 2022 and showed ejection fraction 55-60% - echo this admission suggests EF now 35-40%. He is working with PT at his facility and enjoys activity.? Troponin and CKs were negative on admit with some elevation of BNP noted. .? No pedal edema but there was some clinical improvement with 20mg lasix and feeling and breathing fine this morning. Agree this should not be scheduled given possible dehydration issue also. He has upcoming appointment with his quill cleaner and will discuss further steps then. May benefit from outpatient cardiac rehab. #Pacemaker in place with upcoming need for battery change #aflutter seeing cardiology as above - continue home meds #History of coronary artery disease with no acute symptoms admit CK/troponins negative.? continue home meds. #Depression and anxiety Stable continue duloxetine and Remeron at current dosing #Hypothyroidism taking thyroxine 88mcg, TSH wnl today, continue #non insuline dependent Type 2 diabetes Stable, continue on metformin and glipizide and encouraged them to check his blood sugars as outpatient #History of falling Patient was evaluated by PT and OT and felt stable to be discharged to home with assist and continue outpatient treatment. Advise use fo RW at minimum at all times while ambulating with attendant lodging facilities if possible CT scan of neck and head were negative and no complaints today problems Time spent: 40 min PCP: Anita Code status: DNR DNI Discharge Plan Discharge Plan Patient Disposition: Home Health Service Discharge orders & Medications Prescriptions: Continued glipizide 2.5 mg Tablet Extended Release 24hr 2.5 mg PO DAILY metformin 500 mg tablet 500 mg PO DAILY atorvastatin 20 mg tablet 20 mg PO DAILY amiodarone 200 mg tablet 200 mg PO DAILY levothyroxine 88 mcg tablet 88 mcg PO DAILY esomeprazole magnesium 40 mg capsule,delayed release(DR/EC) 40 mg PO BID nitroglycerin 0.4 mg Tablet, Sublingual 0.4 mg SUBLINGUAL Q5-15M PRN (Reason: chest pain) Rx Instructions: do not exceed 3 doses per episode aspirin 81 mg Tablet 81 mg PO DAILY mirtazapine 15 mg tablet 15 mg PO ONCE PM ondansetron 4 mg tablet,disintegrating 4 mg PO Q8H PRN (Reason: nausea ) duloxetine 20 mg capsule,delayed release(DR/EC) 30 mg PO DAILY Tylenol 500 mg 500 mg PO 1XD atorvastatin [Lipitor] 20 mg tablet 20 mg PO QAM Patient Comments: pt only takes it in the morning duloxetine 30 mg capsule,delayed release(DR/EC) 30 mg PO BEDTIME magnesium oxide 400 mg (241.3 mg magnesium) Tablet 400 mg PO BID Qty: 180 3RF metoprolol succinate 25 mg tablet extended release 24 hr 25 mg PO DAILY amiodarone [Pacerone] 200 mg tablet 100 mg PO DAILY Brilinta 90 mg tablet 90 mg PO BID aspirin [Adult Low Dose Aspirin] 81 mg tablet,delayed release (DR/EC) 81 mg PO QAM Discontinued glipizide 2.5 mg tablet extended release 24hr 2.5 mg PO QAM Brilinta 90 mg tablet 90 mg PO BID Brilinta 90 mg tablet 90 mg PO BID levothyroxine 75 mcg tablet 88 mcg PO QAM esomeprazole magnesium 40 mg capsule,delayed release(DR/EC) 40 mg PO BID Follow up/Referrals: Diane Howard MD [Primary Care Provider] - Visit Report/Discharge Packet Instructions: DI for Dehydration -- Adult Stand Alone Forms: Patient Portal/API, Stroke Signs & Symptoms Discharge Data Primary Care Provider: Diane Howard Attending Provider: Tyrone Mccartney Admit Date/Time: 04/26/23 23:50 Discharges patient from system. Discharge Date/Time: 04/28/23 11:00
--- NOTE | 2023-04-28 09:55 | PC.NURSE ---
Addendum entered by Grazyna Flanagan R.N. 04/28/23 11:06: Pt tele and HL discontinued, Home instructions given w/understanding Pt escorted by staff via W/C to waiting vehicle in stable condition. Original Note: Pt demies any discomfort/dizziness. MD in to see, orders for Discharge received. HL discontinued intact. Call light w/in reach. Pt calls appropriately for needs.
--- NOTE | 2023-04-28 10:55 | PT.IPTN ---
Physical Therapy Treatment Note M2 PT-IP Current Condition Start: 04/27/23 12:07 Freq: NEEDED Status: Active Protocol: Document 04/27/23 11:02 AB (Rec: 04/27/23 12:29 AB [id number]) Physical Therapy Current Condition Current Condition Evaluation Date 04/27/23 Treatment Diagnosis dehydration; CHF; difficulty in walking Onset Date 04/26/23 M3 PT-IP Subjective Start: 04/27/23 12:07 Freq: NEEDED Status: Active Protocol: Document 04/28/23 09:45 MB (Rec: 04/28/23 10:54 MB [id number]) Subjective Physical Therapy Visit Type Type Treatment Note Visit Start Time 09:45 Visit Stop Time 10:31 Total Visit Minutes 46 Number of GUNITE MIXER Visits 0 Physical Therapy Visit Comments Patient Comments He's going home. makes this statement when PT checks in. Patient Goals To return to [facility] today M4 PT-IP Mobility and Gait Start: 04/27/23 12:07 Freq: NEEDED Status: Active Protocol: Document 04/28/23 09:45 MB (Rec: 04/28/23 10:54 MB [id number]) PT-Bed Mobility Assessment Supine to Sit Supine to Sit Standby Assistance,1 Person Assistance,Bedrails Sit to Supine Sit to Supine Standby Assistance,1 Person Assistance,Bedrails Scooting Scooting to Edge of Bed Standby Assistance PT-Transfer Assessment Sit to and From Stand Sit to and from Stand Standby Assistance,1 Person Assistance,Use of Upper Extremities Equipment Transfer Assistive Device Gait Belt,Front Wheeled Walker Orthotic/Prosthetic Devices or Brace: No Comments Mobility Comments Orthostatic assessment with BP and HR in right UE: supine 110/82, 85; standing 77/43, 88 ; standing 1' 101/54, 90. Pt is not symptomatic. Gait Assessment Gait Gait Assistance Required: Standby Assistance,1 Person Assist Distance (Feet) 75 Able to Maintain Weight Bearing Status Yes During Gait Assistive Devices Assistive Device Gait Belt,Front Wheeled Walker Orthotic/Prosthetic Devices or Brace: No Gait Deviations General Gait Pattern Within Normal Limits Factors Limiting Gait Function Factors Limiting Gait Function Poor Safety Awareness Comments Gait Comments SBA to superv for gait with RW 75' x2 d/t severe orthostasis and known to be symptomatic. PT-Balance Assessment Sitting Balance and Reactions Static Sitting Balance Ability Good Dynamic Sitting Balance Ability Good Standing Balance and Reactions Static Standing Balance Ability Good Dynamic Standing Balance Ability Fair Device Used RW M5 PT-IP Objective Assessments Start: 04/27/23 12:07 Freq: NEEDED Status: Active Protocol: Document 04/27/23 11:02 AB (Rec: 04/27/23 12:29 AB [id number]) Orientation Orientation/Cognition Level of Alertness Alert Orientation Name,Place,Situation Safety Awareness Decreased Safety Awareness Memory Description Short Term Impaired Gross Range of Motion Lower Extremity ROM Assessment Within Functional Limits Strength Lower Extremity Strength Assessment Within Functional Limits Muscle Tone Muscle Tone WNL Yes M6 PT-IP Treatment Start: 04/27/23 12:07 Freq: NEEDED Status: Active Protocol: Document 04/28/23 09:45 MB (Rec: 04/28/23 10:55 MB [id number]) Physical Therapy Treatment Education Education Provided Precautions,Safety Brace Education Patient,Caregiver Other Treatments Other Treatment Performed Handout and extensive education on orthostatic hypotension today M7 PT-IP Assessment and Plan Start: 04/27/23 12:07 Freq: NEEDED Status: Active Protocol: Document 04/28/23 09:45 MB (Rec: 04/28/23 10:54 MB [id number]) PT Summary Assessment and Plan Summary Assessment Summary Pt is an 88 y/o male with known cardiac and stroke history and so underlying degenerative vascular changes presenting with severe orthostatic hypotension. His systolic and diastolic pressures drop over 30 mmHg with PT when pt moves from supine to stand today. He is remarkably unsymptomatic. This therapist is a vestibular specialist and orthostatics assessed from supine to standing without sitting in order not to have a false negative or to miss a drop in BP. Also, functionally, pts rarely sit for a couple of minutes before getting up to toilet, etc. PT was able to speak with Dr. Howard and provide orthostatic hypotension education handout and education to pt and . Pt's medications per Dr. Howard have already been reviewed in light of severe orthostatic hypotension. 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 is a great and knowledgable advocate for pt and they live at [facility]. Re-ed pt in slow transfers, especially when getting up at night and moving supine to upright. Doctor states that pt occ gets overload and requires intermittent diuretic and so did ed pt and that pt will NOT be able to increase hydration amount to deal with his symptoms but should make fluids count as far as low caffeine and alcohol. Pt does have Pepsi and coffee occ. Also ed for to review all questions and PT education with Dr. Howard and film processing shift supervisor as PT defers all recommendations to doctors as well. Pt to d/c home today. Will d/c PT. Recommendations To Nursing Amount of Assist Needed 1 Person Assist Discharge Recommendations PT Discharge Recommendations Home with Assistance, Outpatient PT Transportation Needs at Discharge Private Vehicle
== END 2023-04-28 11:00 | disposition home health service (06) ==
LOC: ED 23:50 → AC 23:50
PROVIDERS: Emergency Medicine; Admitting Provider Family Medicine; Emergency Provider Emergency Medicine; PCP Family Medicine; Referring Provider Emergency Medicine; Visit Provider Family Medicine
DX: I50.43 Acute on chronic combined systolic (congestive) and diastolic (congestive) heart failure (principal); I48.91 Unspecified atrial fibrillation; E11.9 Type 2 diabetes mellitus without complications; I25.10 Atherosclerotic heart disease of native coronary artery without angina pectoris; F32.A Depression, unspecified; F41.9 Anxiety disorder, unspecified; E03.9 Hypothyroidism, unspecified; Z95.0 Presence of cardiac pacemaker; Z86.73 Personal history of transient ischemic attack (TIA), and cerebral infarction without residual deficits; Z91.81 History of falling; Z79.84 Long term (current) use of oral hypoglycemic drugs
CPT/HCPCS: 36415; 70450; 71045; 71275; 72125; 80053; 81003; 82962; 83605; 83880; 84443; 84484; 85025; 85379; 85610; 87635; 93005; 93010; 93306; 96360; 97116; 97162; 97165; 97530; 97535; 99284; C9803; G0378; Q9957; Q9967

== ENCOUNTER → 2023-06-06 | Outpatient (CLI) | payer MEDICARE, OTHER, SELFPAY ==
[2023-04-27 00:16] VITALS: BMI 25.5
--- NOTE | 2023-06-07 21:01 | DI.NM.S_ITS ---
DATE OF SERVICE: 06/06/2023 PROCEDURE: Pharmacological perfusion study. INDICATIONS: Known coronary artery disease with CT of right coronary artery, first diagonal branch, ostial LAD stent, ischemic cardiomyopathy, congestive heart failure. RADIOPHARMACEUTICAL: 24.2 millicurie technetium-99m Myoview IV was injected at stress and 25.8 millicurie technetium-99m Myoview IV was injected at rest. CARDIAC STRESS: The patient underwent IV Lexiscan study under the supervision of an attending staff using standard intravenous Lexiscan as per protocol. Baseline rhythm appears to be sinus with underlying right bundle branch block, left anterior fascicular block, as well as intermittent ventricular pacing. Resting blood pressure 123/82. During stress, no convincing new ischemic changes or new arrhythmias seen. The patient remained hemodynamically stable. Minimal dyspnea. No chest discomfort. RAW DATA: There is increased subdiaphragmatic activity. GATED STUDY: Stress LV ejection fraction 45% with inferior wall hypokinesis. Resting end-diastolic volume 105 mL. TID ratio 0.95, which is within normal limits. Lung/heart ratio 0.32, which is within normal limits. MYOCARDIAL PERFUSION SCAN: Stress supine and resting supine images were compared to each other. Please note that there are no prone images. There appears to be predominantly fixed, large size, severely decreased perfusion of inferior wall extending into the inferoapex without any significant reversible ischemia. CONCLUSION: This is an abnormal myocardial perfusion study consistent with predominantly fixed, large size, severely decreased perfusion of inferior wall and inferior apex without any reversible ischemia. The patient has known history of right coronary artery occlusion. On gated images, there is inferior wall hypokinesis. Stress left ventricular ejection fraction 45%. Most likely, patient has old inferior wall myocardial infarction. Please note that there are no prone images. 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
== END ==
PROVIDERS: PCP Family Medicine; Referring Provider Internal Medicine Cardiovascular Disease; Visit Provider Internal Medicine Cardiovascular Disease
DX: I25.10 Atherosclerotic heart disease of native coronary artery without angina pectoris (principal); R94.39 Abnormal result of other cardiovascular function study
CPT/HCPCS: 78452; 93017; A9502; J2785

== ENCOUNTER → 2023-07-27 13:11 | Outpatient (CLI) | payer MEDICARE, OTHER, SELFPAY ==
[2023-04-27 00:16] VITALS: BMI 25.5
[2023-07-27 13:45] LABS: Add Manual Diff / Slide Review NO; Basophils Absolute Auto 0 /uL (0-100); Basophils Percent Auto 0.8 % (0-2); Eosinophils Absolute Auto 100 /uL (0-450); Eosinophils Percent Auto 1.2 % (2-4); Hematocrit 39.6 % (41-53); Hemoglobin 13.1 g/dL (13.5-17.5); Lymphocytes Absolute Auto 1500 /uL (1100-4500); Lymphocytes Percent Auto 27.9 % (25-40); Mean Corpuscular HGB Conc 33.1 % (30-36); Mean Corpuscular Volume 87.6 fL (80-100); Monocytes Absolute Auto 600 /uL (0-900); Monocytes Percent Auto 10.6 % (3-14); Neutrophils Absolute Auto 3200 /uL (1500-7000); Neutrophils Percent Auto 59.5 % (50-75); Platelet Count 292 X10^3/uL (150-400); Red Blood Cell Count 4.53 X10^6/uL (4.5-5.9); Red Cell Distribution Width 16.7 % (11.6-14.8); White Blood Cell Count 5.3 X10^3/uL (4.5-11.0)
[2023-07-27 13:59] LABS: BUN Creatinine Ratio 13.8 (6-22); Blood Urea Nitrogen 22 mg/dL (9-20); Carbon Dioxide 26 mmol/L (22-32); Chloride 97 mmol/L (98-107); Estimated Glomerular Filt Rate 41 mL/min (>60); Glucose 270 mg/dL (80-110); HEMOLYSIS < 15 (0-50); Potassium 4.4 mmol/L (3.4-5.1); Sodium 134 mmol/L (137-145)
== END ==
PROVIDERS: PCP Family Medicine; Referring Provider Internal Medicine Cardiovascular Disease; Visit Provider Internal Medicine Cardiovascular Disease
DX: Z45.010 Encounter for checking and testing of cardiac pacemaker pulse generator [battery] (principal)
CPT/HCPCS: 36415; 80048; 85025

== ENCOUNTER 2023-12-30 15:45 | Emergency (ER) | payer MEDICARE, OTHER, SELFPAY ==
[2023-04-27 00:16] VITALS: BMI 25.5
[2023-12-30] VITALS (14 sets, daily range): BP systolic 106–151; BP diastolic 65–81; PULSE 80–86; RESP 12–25; TEMP 36.8–37.1; O2SAT 95–98; BMI 26.6
--- NOTE | 2023-12-30 15:52 | DI.CT.S_ITS ---
PROCEDURE: CT HEAD/BRAIN WO CON INDICATIONS: fall hit head on thinners TECHNIQUE: Noncontrast 4.5 mm thick angled axial sections acquired from the foramen magnum to the vertex, with coronal and sagittal reformats. For radiation dose reduction, the following was used: automated exposure control, adjustment of mA and/or kV according to patient size. COMPARISON: [facility], CT, CT HEAD/BRAIN WO CON, 11/30/2022, 5:07. [facility], CT, CT CERVICAL SPINE WO CON, 12/30/2023, 16:12. [facility], CT, CT HEAD/BRAIN WO CON, 04/26/2023, 14:43. FINDINGS: Image quality: Diagnostic. CSF spaces: Basal cisterns are patent. No extra-axial fluid collections. The ventricles are symmetric in size and shape. Brain: No intracranial bleeds or masses. There is cerebral volume loss for age, with resultant ventricular and sulcal prominence. There are periventricular and deep white matter chronic small vessel ischemic changes. There is intracranial internal carotid artery atherosclerosis. Skull and face: Calvarium and visualized facial bones appear intact, without suspicious lesions. Sinuses: There is at least moderate right maxillary sinus mucosal thickening seen. Milder mucosal thickening can be seen elsewhere within the paranasal sinuses. No abnormal fluid is seen within the mastoid air cells. IMPRESSION: No acute intracranial hemorrhage is seen. No acute intracranial pathology. Additional findings: Paranasal sinus disease, worst within the right maxillary sinus. Dictated by: Good Peña M.D. on 12/30/2023 at 15:53 Approved by: Good Peña M.D. on 12/30/2023 at 15:54
--- NOTE | 2023-12-30 15:52 | DI.CT.S_ITS ---
PROCEDURE: CT CERVICAL SPINE WO CON INDICATIONS: fall hit head on thinners TECHNIQUE: Noncontrast 3 mm thick sections acquired from the skull base to the T4 level. Sagittal and coronal reformats were then constructed. For radiation dose reduction, the following was used: automated exposure control, adjustment of mA and/or kV according to patient size. COMPARISON: [facility], CT, CT CERVICAL SPINE WO CON, 11/30/2022, 7:04. [facility], CT, CT HEAD/BRAIN WO CON, 12/30/2023, 16:12. [facility], CT, CT CERVICAL SPINE WO CON, 04/26/2023, 14:43. FINDINGS: Image quality: There is artifact associated with the metallic hardware. Artifact from the metallic hardware is reduced by metal reconstruction algorithm. Bones: No fractures or dislocations. Visualized superior ribs are intact. Anterior fixation hardware can be seen C5 through C7, which appears intact. Focal degenerative change is seen involving the C1-C2 interface anteriorly. There is at least moderate disc space narrowing seen at C3-C4. Minimal anterolisthesis can be seen at C3-C4. Milder degenerative changes are seen elsewhere. Soft tissues: Prevertebral soft tissues are normal in thickness. No paravertebral hematomas. No apical pneumothoraces. Left-sided pacer leads are seen. Atherosclerotic calcification is noted. The ascending thoracic aorta measures 4.4 cm transversely. IMPRESSION: No displaced fracture or traumatic subluxation. Focal degenerative change seen at C1-C2 anteriorly and at C3-C4. Intact appearing C5 through C7 anterior fixation hardware. Additional findings: Left-sided pacer device Stable mild ascending thoracic aortic aneurysm, 4.4 cm Dictated by: Good Peña M.D. on 12/30/2023 at 15:50 Approved by: Good Peña M.D. on 12/30/2023 at 15:52
[2023-12-30 15:59] LABS: Add Manual Diff / Slide Review NO; Basophils Absolute Auto 100 /uL (0-100); Basophils Percent Auto 0.7 % (0-2); Eosinophils Absolute Auto 100 /uL (0-450); Eosinophils Percent Auto 1.3 % (2-4); Hematocrit 41.4 % (41-53); Hemoglobin 13.8 g/dL (13.5-17.5); Lymphocytes Absolute Auto 1800 /uL (1100-4500); Lymphocytes Percent Auto 20.2 % (25-40); Mean Corpuscular HGB Conc 33.4 % (30-36); Mean Corpuscular Hemoglobin 30.9 PG (26-34); Mean Corpuscular Volume 92.4 fL (80-100); Monocytes Absolute Auto 1000 /uL (0-900); Monocytes Percent Auto 11.6 % (3-14); Neutrophils Absolute Auto 5800 /uL (1500-7000); Neutrophils Percent Auto 66.2 % (50-75); Platelet Count 278 X10^3/uL (150-400); Red Blood Cell Count 4.47 X10^6/uL (4.5-5.9); Red Cell Distribution Width 16.8 % (11.6-14.8); White Blood Cell Count 8.8 X10^3/uL (4.5-11.0)
[2023-12-30 16:07] LABS: INR 1.1 (0.9-1.3); Prothrombin Time 12.2 SECONDS (9.4-12.5)
[2023-12-30 16:13] LABS: Alanine Aminotransferase 47 IU/L (<50); Albumin 4.7 g/dL (3.5-5.0); Albumin Globulin Ratio 1.4 (1.0-2.8); Alkaline Phosphatase 107 U/L (38-126); Aspartate Aminotransferase 45 IU/L (17-59); BUN Creatinine Ratio 11.4 (6-22); Bilirubin Total 0.5 mg/dL (0.2-1.3); Blood Urea Nitrogen 18 mg/dL (9-20); Calcium 9.8 mg/dL (8.4-10.2); Carbon Dioxide 27 mmol/L (22-32); Chloride 103 mmol/L (98-107); Estimated Glomerular Filt Rate 42 mL/min (>60); Globulin 3.3 g/dL (1.7-4.1); Glucose 132 mg/dL (80-110); HEMOLYSIS < 15 (0-50); Potassium 4.2 mmol/L (3.4-5.1); Sodium 139 mmol/L (137-145)
--- NOTE | 2023-12-30 18:13 | ED_ITS ---
HPI - Fall General Chief Complaint: Fall Stated Complaint: weakness L leg fall hit head on thinners Time Seen by Provider: 12/30/23 17:46 History of Present Illness HPI Narrative: 88-year-old male presents for evaluation of accidental head injury. Patient states that he has had intermittent issues with his left leg buckling on him and while he was walking today his left leg buckled and he hit his head against the wall. He takes Brilinta but does not use any other blood thinners. Denies loss of consciousness. He states that the nursing line recommended he be evaluated in the emergency department. Related Data Home Medications Medication Instructions Recorded Confirmed aspirin 81 mg tablet,delayed 81 mg PO QAM 12/24/18 04/27/23 release (Adult Low Dose Aspirin) atorvastatin 20 mg tablet (Lipitor) 20 mg PO QAM 09/23/20 04/27/23 duloxetine 30 mg capsule,delayed 30 mg PO BEDTIME 09/23/20 04/27/23 release glipizide 2.5 mg tablet, extended 2.5 mg PO DAILY 01/14/21 04/27/23 release 24 hr metoprolol succinate 25 mg 25 mg PO DAILY 03/14/21 04/27/23 tablet,extended release 24 hr amiodarone 200 mg tablet (Pacerone) 100 mg PO DAILY 10/23/21 04/27/23 ticagrelor 90 mg tablet (Brilinta) 90 mg PO BID 10/23/21 04/27/23 Tylenol 500 mg PO 1XD 04/27/23 04/27/23 amiodarone 200 mg tablet 200 mg PO DAILY 04/27/23 04/27/23 aspirin 81 mg tablet 81 mg PO DAILY 04/27/23 04/27/23 atorvastatin 20 mg tablet 20 mg PO DAILY 04/27/23 04/27/23 duloxetine 20 mg capsule,delayed 30 mg PO DAILY 04/27/23 04/27/23 release esomeprazole magnesium 40 mg 40 mg PO BID 04/27/23 04/27/23 capsule,delayed release levothyroxine 88 mcg tablet 88 mcg PO DAILY 04/27/23 04/27/23 metformin 500 mg tablet 500 mg PO DAILY 04/27/23 04/27/23 mirtazapine 15 mg tablet 15 mg PO ONCE PM 04/27/23 04/27/23 nitroglycerin 0.4 mg sublingual 0.4 mg sublingual Q5-15M PRN chest 04/27/23 04/27/23 tablet pain ondansetron 4 mg disintegrating 4 mg PO Q8H PRN nausea 04/27/23 04/27/23 tablet Previous Rx's Medication Instructions Recorded magnesium oxide 400 mg (241.3 mg 400 mg PO BID #180 tabs 10/08/20 magnesium) tablet Allergies Allergy/AdvReac Type Severity Reaction Status Date / Time Awpzeur-EUN-YbM Reductase Allergy Intermediate MUSCLE PAIN Verified 11/15/22 11:18 Inhibitor [KAQMBKQ-[id number]-YFN REDUCTASE INHIBITOR] piroxicam [PIROXICAM] Allergy Mild NAUSEA, Verified 11/15/22 11:18 VOMITING dabigatran etexilate AdvReac Hematuria Verified 11/15/22 11:18 Review of Systems Review of Systems Narrative: See HPI Patient History Medical History Nocturia Nocturia Thyroid disease Heart attack Arthritis Presence of Watchman left atrial appendage closure device (~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/19) Spinal stenosis of lumbar region Psychosexual dysfunction History of fatigue History of hematuria Paroxysmal A-fib Sick sinus syndrome RBBB History of CVA (cerebrovascular accident) History of dizziness Lumbosacral radiculopathy at L5 Elevated serum homocysteine level Neuropathy of both feet Memory deficit Depression Anxiety Sleep apnea (~2012) Dysuria Urinary retention Renal insufficiency Impotence History of angina Dyslipidemia CAD (coronary artery disease) Pacemaker (~2013) Diabetes Osteoarthritis TIA (transient ischemic attack) History of esophageal reflux Spinal stenosis in cervical region DDD (degenerative disc disease), cervical Surgical History History of fusion of cervical spine S/P drug eluting coronary stent placement History of cardiac cath (~2012) History of cholecystectomy (~2012) History of tonsillectomy History of cystoscopy History of vasectomy History of appendectomy H/O shoulder surgery Status post right foot surgery H/O thumb surgery H/O laminectomy History of bladder surgery History of lumbar fusion Social History marital status: details: to Siri, lives in [place] household members: spouse lives independently: Yes caregiver/support person: No housing: house Smoking Status: Never smoker alcohol intake: current substance use type: does not use Smoking Status: Never smoker alcohol intake frequency: holidays/special occasions only Substance Use Type: does not use Exam Initial Vital Signs Initial Vital Signs: Vital Signs Temperature 98.7 F 12/30/23 15:50 Pulse Rate 86 12/30/23 15:50 Respiratory Rate 16 12/30/23 15:50 Blood Pressure 119/81 12/30/23 15:50 Pulse Oximetry 97 12/30/23 15:50 Oxygen Delivery Method Room Air 12/30/23 15:50 Const: Awake, alert, no acute distress MSK: Atraumatic, full range of motion, pulses equal, no tenderness to palpation Skin: Warm, Dry, intact, no rashes Neuro: AO x3, CN II-XII grossly intact, moves all extremities Course Orders Ordered: ED Orders 12/30/23 15:49 CMP [Comprehensive Metabolic Panel] Stat Complete Blood Count AUTO DIFF Stat Prothrombin Time INR Stat 12/30/23 15:52 CT cervical spine wo con Stat CT head/brain wo con Stat Vital Signs Vital signs: Vital Signs - 8 hr 12/30/23 16:27 12/30/23 16:27 12/30/23 16:30 Temperature Pulse Rate 80 Respiratory Rate 24 Blood Pressure 125/69 129/65 Pulse Oximetry 98 12/30/23 16:30 12/30/23 16:45 12/30/23 16:45 Temperature Pulse Rate 80 80 Respiratory Rate 18 19 Blood Pressure 123/70 Pulse Oximetry 95 97 12/30/23 17:00 12/30/23 17:00 12/30/23 17:15 Temperature Pulse Rate 80 80 Respiratory Rate 13 12 Blood Pressure 113/72 Pulse Oximetry 97 98 12/30/23 17:15 12/30/23 17:30 12/30/23 17:30 Temperature Pulse Rate 80 Respiratory Rate 12 Blood Pressure 131/68 128/81 Pulse Oximetry 98 12/30/23 17:45 12/30/23 17:45 12/30/23 18:00 Temperature Pulse Rate 81 80 Respiratory Rate 14 13 Blood Pressure 110/67 Pulse Oximetry 97 97 12/30/23 18:01 12/30/23 18:01 12/30/23 18:15 Temperature Pulse Rate 80 80 Respiratory Rate 25 H 12 Blood Pressure 151/67 H Pulse Oximetry 96 98 12/30/23 18:15 12/30/23 18:37 Temperature 98.3 F Pulse Rate Respiratory Rate Blood Pressure 120/79 Pulse Oximetry MDM - Fall Differential Diagnosis Differential diagnosis: Likely syncope, dislocation of shoulder region and fracture of wrist Lab Data 12/30/23 15:49 12/30/23 15:49 Labs: Lab Results 12/30/23 Range/Units 15:49 WBC 8.8 (4.5-11.0) X10^3/uL RBC 4.47 L (4.5-5.9) X10^6/uL Hgb 13.8 (13.5-17.5) g/dL Hct 41.4 (41-53) % MCV 92.4 (80-100) fL MCH 30.9 (26-34) PG MCHC 33.4 (30-36) % RDW 16.8 H (11.6-14.8) % Plt Count 278 (150-400) X10^3/uL Neut % (Auto) 66.2 (50-75) % Lymph % (Auto) 20.2 L (25-40) % [place] % (Auto) 11.6 (3-14) % Eos % (Auto) 1.3 L (2-4) % Baso % (Auto) 0.7 (0-2) % Neut # (Auto) 5800 (1030-6203) /uL Lymph # (Auto) 1800 (8890-7663) /uL [place] # (Auto) 1000 H (0-900) /uL Eos # (Auto) 100 (0-450) /uL Baso # (Auto) 100 (0-100) /uL PT 12.2 (9.4-12.5) SECONDS INR 1.1 (0.9-1.3) Sodium 139 (137-145) mmol/L Potassium 4.2 (3.4-5.1) mmol/L Chloride 103 (98-107) mmol/L Carbon Dioxide 27 (22-32) mmol/L BUN 18 (9-20) mg/dL Creatinine 1.58 H (0.66-1.25) mg/dL Estimated GFR 42 L (>60) mL/min BUN/Creatinine Ratio 11.4 (6-22) Glucose 132 H (80-110) mg/dL Calcium 9.8 (8.4-10.2) mg/dL Total Bilirubin 0.5 (0.2-1.3) mg/dL AST 45 (17-59) IU/L ALT 47 (<50) IU/L Alkaline Phosphatase 107 (38-126) U/L Total Protein 8.0 (6.3-8.2) g/dL Albumin 4.7 (3.5-5.0) g/dL Globulin 3.3 (1.7-4.1) g/dL Albumin/Globulin Ratio 1.4 (1.0-2.8) Imaging Data CT - cervical spine: Radiologist's Impression: PROCEDURE: CT CERVICAL SPINE WO CON INDICATIONS: fall hit head on thinners TECHNIQUE: Noncontrast 3 mm thick sections acquired from the skull base to the T4 level. Sagittal and coronal reformats were then constructed. For radiation dose reduction, the following was used: automated exposure control, adjustment of mA and/or kV according to patient size. COMPARISON: [facility], CT, CT CERVICAL SPINE WO CON, 11/30/2022, 7:04. [facility], CT, CT HEAD/BRAIN WO CON, 12/30/2023, 16:12. [facility], CT, CT CERVICAL SPINE WO CON, 04/26/2023, 14:43. FINDINGS: Image quality: There is artifact associated with the metallic hardware. Artifact from the metallic hardware is reduced by metal reconstruction algorithm. Bones: No fractures or dislocations. Visualized superior ribs are intact. Anterior fixation hardware can be seen C5 through C7, which appears intact. Focal degenerative change is seen involving the C1-C2 interface anteriorly. There is at least moderate disc space narrowing seen at C3-C4. Minimal anterolisthesis can be seen at C3-C4. Milder degenerative changes are seen elsewhere. Soft tissues: Prevertebral soft tissues are normal in thickness. No paravertebral hematomas. No apical pneumothoraces. Left-sided pacer leads are seen. Atherosclerotic calcification is noted. The ascending thoracic aorta measures 4.4 cm transversely. IMPRESSION: No displaced fracture or traumatic subluxation. Focal degenerative change seen at C1-C2 anteriorly and at C3-C4. Intact appearing C5 through C7 anterior fixation hardware. Additional findings: Left-sided pacer device Stable mild ascending thoracic aortic aneurysm, 4.4 cm Dictated by: Good Peña M.D. on 12/30/2023 at 15:50 Approved by: Good Peña M.D. on 12/30/2023 at 15:52 CT scan - head: Radiologist's Impression: PROCEDURE: CT HEAD/BRAIN WO CON INDICATIONS: fall hit head on thinners TECHNIQUE: Noncontrast 4.5 mm thick angled axial sections acquired from the foramen magnum to the vertex, with coronal and sagittal reformats. For radiation dose reduction, the following was used: automated exposure control, adjustment of mA and/or kV according to patient size. COMPARISON: [facility], CT, CT HEAD/BRAIN WO CON, 11/30/2022, 5:07. [facility], CT, CT CERVICAL SPINE WO CON, 12/30/2023, 16:12. [facility], CT, CT HEAD/BRAIN WO CON, 04/26/2023, 14:43. FINDINGS: Image quality: Diagnostic. CSF spaces: Basal cisterns are patent. No extra-axial fluid collections. The ventricles are symmetric in size and shape. Brain: No intracranial bleeds or masses. There is cerebral volume loss for age, with resultant ventricular and sulcal prominence. There are periventricular and deep white matter chronic small vessel ischemic changes. There is intracranial internal carotid artery atherosclerosis. Skull and face: Calvarium and visualized facial bones appear intact, without suspicious lesions. Sinuses: There is at least moderate right maxillary sinus mucosal thickening seen. Milder mucosal thickening can be seen elsewhere within the paranasal sinuses. No abnormal fluid is seen within the mastoid air cells. IMPRESSION: No acute intracranial hemorrhage is seen. No acute intracranial pathology. Additional findings: Paranasal sinus disease, worst within the right maxillary sinus. Dictated by: Good Peña M.D. on 12/30/2023 at 15:53 Approved by: Good Peña M.D. on 12/30/2023 at 15:54 [facility] Narrative Medical decision making narrative: Minor head injury after his left leg gave out. Patient unconcerned by left lower extremity stating that this has happened from time to time and he was in the process of discussing this issue with his primary care doctor. CT imaging negative for acute traumatic findings. Patient discharged home to the care of his in stable condition Discharge Plan Departure Patient Disposition: Home Clinical Impression: Closed head injury Instructions: DI for Closed Head Injury Activity Restrictions/Additional Instructions: Follow up with your primary care physician, especially if you continue to experience buckling in your knee Prescriptions: No Action glipizide 2.5 mg Tablet Extended Release 24hr 2.5 mg PO DAILY metformin 500 mg tablet 500 mg PO DAILY atorvastatin 20 mg tablet 20 mg PO DAILY amiodarone 200 mg tablet 200 mg PO DAILY levothyroxine 88 mcg tablet 88 mcg PO DAILY esomeprazole magnesium 40 mg capsule,delayed release(DR/EC) 40 mg PO BID nitroglycerin 0.4 mg Tablet, Sublingual 0.4 mg SUBLINGUAL Q5-15M PRN (Reason: chest pain) Rx Instructions: do not exceed 3 doses per episode aspirin 81 mg Tablet 81 mg PO DAILY mirtazapine 15 mg tablet 15 mg PO ONCE PM ondansetron 4 mg tablet,disintegrating 4 mg PO Q8H PRN (Reason: nausea ) duloxetine 20 mg capsule,delayed release(DR/EC) 30 mg PO DAILY Tylenol 500 mg 500 mg PO 1XD atorvastatin [Lipitor] 20 mg tablet 20 mg PO QAM Patient Comments: pt only takes it in the morning duloxetine 30 mg capsule,delayed release(DR/EC) 30 mg PO BEDTIME magnesium oxide 400 mg (241.3 mg magnesium) Tablet 400 mg PO BID Qty: 180 3RF metoprolol succinate 25 mg tablet extended release 24 hr 25 mg PO DAILY amiodarone [Pacerone] 200 mg tablet 100 mg PO DAILY Brilinta 90 mg tablet 90 mg PO BID aspirin [Adult Low Dose Aspirin] 81 mg tablet,delayed release (DR/EC) 81 mg PO QAM Referrals: Diane Howard MD [Primary Care Provider] - Stand Alone Forms: Patient Portal/API
== END 2023-12-30 18:38 | disposition home or self-care (01) ==
PROVIDERS: Emergency Medicine; Emergency Provider Emergency Medicine; PCP Family Medicine
DX: S09.90XA Unspecified injury of head, initial encounter (principal); W22.01XA Walked into wall, initial encounter; Z79.01 Long term (current) use of anticoagulants
CPT/HCPCS: 70450; 72125; 80053; 85025; 85610; 93005; 93010; 99281; 99284

== ENCOUNTER 2024-02-24 19:45 | Emergency (ER) | payer MEDICARE, OTHER, SELFPAY ==
[2023-04-27 00:16] VITALS: BMI 25.5
[2024-02-24] VITALS (7 sets, daily range): BP systolic 112–163; BP diastolic 65–84; PULSE 78–99; RESP 16–22; TEMP 36.6; O2SAT 95–100; BMI 25.4
--- NOTE | 2024-02-24 20:05 | DI.RAD.S_ITS ---
PROCEDURE: XR CHEST 1V INDICATIONS: lightheadedness, low BP TECHNIQUE: One view of the chest was acquired. COMPARISON: [facility], CR, XR CHEST 1V, 04/26/2023, 14:34. FINDINGS: Surgical changes and devices: Left chest wall AICD device with cardiac leads. Partially evaluated lower cervical spinal hardware.. Lungs and pleura: Lungs are clear. No pleural effusions or pneumothorax. Mediastinum: Mediastinal contours appear normal. Heart size is normal. Bones and chest wall: No suspicious bony lesions. Overlying soft tissues appear unremarkable. IMPRESSION: No acute cardiopulmonary abnormality is seen. Approved by: Annie Felipe M.D.,Ph.D. on 02/24/2024 at 20:32
--- NOTE | 2024-02-24 20:17 | ED_ITS ---
HPI - General Adult General Chief complaint: Dizziness Stated complaint: low blood pressure, refered by doc Time Seen by Provider: 02/24/24 20:03 Source: patient and family Mode of arrival: Wheelchair History of Present Illness HPI narrative: 88-year-old male with history of congestive heart failure, atrial flutter s/p watchman, permanent pacemaker, coronary disease, [id number] type 2 diabetes presents by private vehicle from [facility] for low blood pressure reading this evening. Patient was receiving nightly vitals and his blood pressure was noted to be 80s systolic. They called his primary doctor, who recommended emergency department evaluation. Patient states that he has felt somewhat lightheaded throughout the week, but otherwise he has felt in his usual state of health. He states that he does have a history of fluctuating blood pressures and he can occasionally have hypotension that resolved spontaneously. Triage vitals remarkable for initial blood pressure 163/84 Related Data Home Medications Medication Instructions Recorded Confirmed aspirin 81 mg tablet,delayed 81 mg PO QAM 12/24/18 04/27/23 release (Adult Low Dose Aspirin) atorvastatin 20 mg tablet (Lipitor) 20 mg PO QAM 09/23/20 04/27/23 duloxetine 30 mg capsule,delayed 30 mg PO BEDTIME 09/23/20 04/27/23 release glipizide 2.5 mg tablet, extended 2.5 mg PO DAILY 01/14/21 04/27/23 release 24 hr metoprolol succinate 25 mg 25 mg PO DAILY 03/14/21 04/27/23 tablet,extended release 24 hr amiodarone 200 mg tablet (Pacerone) 100 mg PO DAILY 10/23/21 04/27/23 ticagrelor 90 mg tablet (Brilinta) 90 mg PO BID 10/23/21 04/27/23 Tylenol 500 mg PO 1XD 04/27/23 04/27/23 amiodarone 200 mg tablet 200 mg PO DAILY 04/27/23 04/27/23 aspirin 81 mg tablet 81 mg PO DAILY 04/27/23 04/27/23 atorvastatin 20 mg tablet 20 mg PO DAILY 04/27/23 04/27/23 duloxetine 20 mg capsule,delayed 30 mg PO DAILY 04/27/23 04/27/23 release esomeprazole magnesium 40 mg 40 mg PO BID 04/27/23 04/27/23 capsule,delayed release levothyroxine 88 mcg tablet 88 mcg PO DAILY 04/27/23 04/27/23 metformin 500 mg tablet 500 mg PO DAILY 04/27/23 04/27/23 mirtazapine 15 mg tablet 15 mg PO ONCE PM 04/27/23 04/27/23 nitroglycerin 0.4 mg sublingual 0.4 mg sublingual Q5-15M PRN chest 04/27/23 04/27/23 tablet pain ondansetron 4 mg disintegrating 4 mg PO Q8H PRN nausea 04/27/23 04/27/23 tablet Previous Rx's Medication Instructions Recorded magnesium oxide 400 mg (241.3 mg 400 mg PO BID #180 tabs 10/08/20 magnesium) tablet ciprofloxacin HCl 500 mg tablet 500 mg PO BID 7 days #14 tabs 02/24/24 Allergies Allergy/AdvReac Type Severity Reaction Status Date / Time Bulmdpj-UXS-SqD Reductase Allergy Intermediate MUSCLE PAIN Verified 11/15/22 11:18 Inhibitor [[id number] REDUCTASE INHIBITOR] piroxicam [PIROXICAM] Allergy Mild NAUSEA, Verified 11/15/22 11:18 VOMITING dabigatran etexilate AdvReac Hematuria Verified 11/15/22 11:18 Patient History Medical History Nocturia Nocturia Thyroid disease Heart attack Arthritis Presence of Watchman left atrial appendage closure device (~01/07/19) Spinal stenosis of lumbar region Psychosexual dysfunction History of fatigue History of hematuria Paroxysmal A-fib Sick sinus syndrome RBBB History of CVA (cerebrovascular accident) History of dizziness Lumbosacral radiculopathy at L5 Elevated serum homocysteine level Neuropathy of both feet Memory deficit Depression Anxiety Sleep apnea (~2012) Dysuria Urinary retention Renal insufficiency Impotence History of angina Dyslipidemia CAD (coronary artery disease) Pacemaker (~2013) Diabetes Osteoarthritis TIA (transient ischemic attack) History of esophageal reflux Spinal stenosis in cervical region DDD (degenerative disc disease), cervical Surgical History History of fusion of cervical spine S/P drug eluting coronary stent placement History of cardiac cath (~2012) History of cholecystectomy (~2012) History of tonsillectomy History of cystoscopy History of vasectomy History of appendectomy H/O shoulder surgery Status post right foot surgery H/O thumb surgery H/O laminectomy History of bladder surgery History of lumbar fusion Social History marital status: details: aisha Horner, lives in [place] household members: spouse lives independently: Yes caregiver/support person: No housing: house Smoking Status: Never smoker alcohol intake: current substance use type: does not use Smoking Status: Never smoker alcohol intake frequency: holidays/special occasions only Substance Use Type: does not use Exam Initial Vital Signs Initial Vital Signs: Vital Signs Blood Pressure 163/84 H 02/24/24 20:00 Const: Awake, alert, no acute distress, frail, appears chronically unwell Cardiac: Irregularly irregular rhythm rhythm RESP: unlabored, clear bilaterally, no wheezing GI: Soft, nontender, nondistended Skin: Warm, Dry, intact, no rashes Neuro: AO x3, CN II-XII grossly intact, moves all extremities Course Orders Ordered: Discontinued Medications Ciprofloxacin (Ciprofloxacin 250 Mg Tablet) 500 mg PO NOW ONE Stop: 02/24/24 22:56 Last Admin: 02/24/24 23:04 Dose: 500 mg Documented By: HNG Vital Signs Vital signs: Vital Signs - 8 hr 02/24/24 22:30 Pulse Rate 80 Respiratory Rate 20 Blood Pressure 131/76 Pulse Oximetry 100 Oxygen Delivery Method Room Air Medical Decision Making Lab Data 02/24/24 20:10 02/24/24 20:10 Labs: Lab Results 02/24/24 02/24/24 Range/Units 20:10 22:35 WBC 6.1 (4.5-11.0) X10^3/uL RBC 4.24 L (4.5-5.9) X10^6/uL Hgb 13.6 (13.5-17.5) g/dL Hct 40.1 L (41-53) % MCV 94.7 (80-100) fL MCH 32.1 (26-34) PG MCHC 33.9 (30-36) % RDW 16.2 H (11.6-14.8) % Plt Count 260 (150-400) X10^3/uL Neut % (Auto) 56.7 (50-75) % Lymph % (Auto) 28.6 (25-40) % [place] % (Auto) 12.2 (3-14) % Eos % (Auto) 1.5 L (2-4) % Baso % (Auto) 1.0 (0-2) % Neut # (Auto) 3500 (1169-5017) /uL Lymph # (Auto) 1700 (9519-8208) /uL [place] # (Auto) 700 (0-900) /uL Eos # (Auto) 100 (0-450) /uL Baso # (Auto) 100 (0-100) /uL Sodium 133 L (137-145) mmol/L Potassium 4.7 (3.4-5.1) mmol/L Chloride 102 (98-107) mmol/L Carbon Dioxide 23 (22-32) mmol/L BUN 21 H (9-20) mg/dL Creatinine 1.63 H (0.66-1.25) mg/dL Estimated GFR 40 L (>60) mL/min BUN/Creatinine Ratio 12.9 (6-22) Glucose 145 H (80-110) mg/dL Calcium 9.2 (8.4-10.2) mg/dL Magnesium 2.2 (1.6-2.3) mg/dL Total Bilirubin 0.5 (0.2-1.3) mg/dL AST 50 (17-59) IU/L ALT 48 (<50) IU/L Alkaline Phosphatase 94 (38-126) U/L Total Protein 7.0 (6.3-8.2) g/dL Albumin 4.2 (3.5-5.0) g/dL Globulin 2.8 (1.7-4.1) g/dL Albumin/Globulin Ratio 1.5 (1.0-2.8) Urine Color Yellow Urine Appearance Clear Urine pH 6.5 (4.5-8.0) Ur Specific [place] 1.020 (1.000-1.035) Urine Protein Negative (Negative) Urine Glucose (UA) Negative (Negative) g/dL Urine Ketones Trace H (NEGATIVE) Urine Occult Blood Negative (Negative) Urine Nitrate Negative (Negative) Urine Bilirubin Negative (NEGATIVE) Urine Urobilinogen 1.0 (0.2) E.U./dL Ur Leukocyte Esterase Trace H (NEGATIVE) Urine RBC 1-5/hpf (0-5/HPF) Urine WBC 5-10/hpf H (0-5/HPF) Ur Squamous Epith Cells 1-5 /hpf (0-5/HPF) Urine Bacteria Moderate (10-30) H (None) Hyaline Casts 1-5/lpf (None) Ur Culture Indicated? Specimen cultured Vol Urine Centrifuged 10ml (spun) Chlamy pneumoniae PCR Not detected (Not Detect) Adenovirus (PCR) Not detected (Not Detect) B.parapertussis DNA PCR Not detected (Not Detecte) Coronavirus OC43 (PCR) Not detected (Not Detect) Coronavirus HKU1 (PCR) Not detected (Not Detect) Coronavirus 229E (PCR) Not detected (Not Detect) SARS-CoV-2 (PCR) Not detected (Not Detecte) Coronavirus NL63 (PCR) Not detected (Not Detect) Human Metapneumovir PCR Not detected (Not Detect) Influenza A (PCR) Not detected (Not Detect) Influenza Type B (PCR) Not detected (Not Detect) M. pneumoniae (PCR) Not detected (Not Detect) Parainfluenza 1 (PCR) Not detected (Not Detect) Parainfluenza 2 (PCR) Not detected (Not Detect) Parainfluenza 3 (PCR) Not detected (Not Detect) Parainfluenza 4 (PCR) Not detected (Not Detect) RSV (PCR) Not detected (Not Detect) Entero/Rhino (PCR) Not detected (Not Detect) Imaging Data Chest x-ray: Radiologist's Impression: PROCEDURE: XR CHEST 1V INDICATIONS: lightheadedness, low BP TECHNIQUE: One view of the chest was acquired. COMPARISON: [facility], , XR CHEST 1V, 04/26/2023, 14:34. FINDINGS: Surgical changes and devices: Left chest wall AICD device with cardiac leads. Partially evaluated lower cervical spinal hardware.. Lungs and pleura: Lungs are clear. No pleural effusions or pneumothorax. Mediastinum: Mediastinal contours appear normal. Heart size is normal. Bones and chest wall: No suspicious bony lesions. Overlying soft tissues appear unremarkable. IMPRESSION: No acute cardiopulmonary abnormality is seen. Approved by: Annie Felipe M.D.,Ph.D. on 02/24/2024 at 20:32 ECG Data Interpretation: Atrial fibrillation at 79 beats per minute. Right bundle branch block, no STEMI MDM Narrative Additional Information: Incidental low blood pressure measurement this evening at his assisted living facility. Patient reports a vague lightheaded sensation throughout the week, but it was no different today than it has been for the last several days. No focal deficit on exam, patient's initial triage vitals hypertensive rather than hypotensive Laboratory work significant for WBC count 6.1, hemoglobin 13.6, platelets 260, sodium 133, potassium 4.7, creatinine 1.63, glucose 145. EKG atrial fibrillation with right bundle branch block. Chest x-ray negative for acute process. Urinalysis with leukocyte esterase, some WBCs, moderate bacteria. I have low suspicion for true UTI at this time but will treat wtih cipro. Rx sent to pharmacy of choice. PCP follow up advised. Discharge Plan Departure Patient Disposition: Home Clinical Impression: Low blood pressure reading, Bacteriuria Instructions: DI for Urinary Tract Infection (UTI) Activity Restrictions/Additional Instructions: Finish all antibiotics as prescribed. Prescriptions: New ciprofloxacin HCl 500 mg tablet 500 mg PO BID 7 Days Qty: 14 0RF No Action glipizide 2.5 mg Tablet Extended Release 24hr 2.5 mg PO DAILY metformin 500 mg tablet 500 mg PO DAILY atorvastatin 20 mg tablet 20 mg PO DAILY amiodarone 200 mg tablet 200 mg PO DAILY levothyroxine 88 mcg tablet 88 mcg PO DAILY esomeprazole magnesium 40 mg capsule,delayed release(DR/EC) 40 mg PO BID nitroglycerin 0.4 mg Tablet, Sublingual 0.4 mg SUBLINGUAL Q5-15M PRN (Reason: chest pain) Rx Instructions: do not exceed 3 doses per episode aspirin 81 mg Tablet 81 mg PO DAILY mirtazapine 15 mg tablet 15 mg PO ONCE PM ondansetron 4 mg tablet,disintegrating 4 mg PO Q8H PRN (Reason: nausea ) duloxetine 20 mg capsule,delayed release(DR/EC) 30 mg PO DAILY Tylenol 500 mg 500 mg PO 1XD atorvastatin [Lipitor] 20 mg tablet 20 mg PO QAM Patient Comments: pt only takes it in the morning duloxetine 30 mg capsule,delayed release(DR/EC) 30 mg PO BEDTIME magnesium oxide 400 mg (241.3 mg magnesium) Tablet 400 mg PO BID Qty: 180 3RF metoprolol succinate 25 mg tablet extended release 24 hr 25 mg PO DAILY amiodarone [Pacerone] 200 mg tablet 100 mg PO DAILY Brilinta 90 mg tablet 90 mg PO BID aspirin [Adult Low Dose Aspirin] 81 mg tablet,delayed release (DR/EC) 81 mg PO QAM Referrals: Diane Howard MD [Primary Care Provider] - Stand Alone Forms: Patient Portal/API
[2024-02-24 20:18] LABS: Add Manual Diff / Slide Review NO; Basophils Absolute Auto 100 /uL (0-100); Eosinophils Absolute Auto 100 /uL (0-450); Eosinophils Percent Auto 1.5 % (2-4); Hematocrit 40.1 % (41-53); Hemoglobin 13.6 g/dL (13.5-17.5); Lymphocytes Absolute Auto 1700 /uL (1100-4500); Lymphocytes Percent Auto 28.6 % (25-40); Mean Corpuscular HGB Conc 33.9 % (30-36); Mean Corpuscular Hemoglobin 32.1 PG (26-34); Mean Corpuscular Volume 94.7 fL (80-100); Monocytes Absolute Auto 700 /uL (0-900); Monocytes Percent Auto 12.2 % (3-14); Neutrophils Absolute Auto 3500 /uL (1500-7000); Neutrophils Percent Auto 56.7 % (50-75); Platelet Count 260 X10^3/uL (150-400); Red Blood Cell Count 4.24 X10^6/uL (4.5-5.9); Red Cell Distribution Width 16.2 % (11.6-14.8); White Blood Cell Count 6.1 X10^3/uL (4.5-11.0)
[2024-02-24 20:28] LABS: Alanine Aminotransferase 48 IU/L (<50); Albumin 4.2 g/dL (3.5-5.0); Albumin Globulin Ratio 1.5 (1.0-2.8); Alkaline Phosphatase 94 U/L (38-126); Aspartate Aminotransferase 50 IU/L (17-59); BUN Creatinine Ratio 12.9 (6-22); Bilirubin Total 0.5 mg/dL (0.2-1.3); Blood Urea Nitrogen 21 mg/dL (9-20); Calcium 9.2 mg/dL (8.4-10.2); Carbon Dioxide 23 mmol/L (22-32); Chloride 102 mmol/L (98-107); Estimated Glomerular Filt Rate 40 mL/min (>60); Globulin 2.8 g/dL (1.7-4.1); Glucose 145 mg/dL (80-110); HEMOLYSIS 32 (0-50); Magnesium 2.2 mg/dL (1.6-2.3); Potassium 4.7 mmol/L (3.4-5.1); Sodium 133 mmol/L (137-145)
--- NOTE | 2024-02-24 20:37 | PC.NURSE ---
Pt laying back in gurney. Appears in no acute distress. Says that he gets dizzy and lightheaded when he gets up and moves around. Denies dizziness while laying in gurney.
[2024-02-24 21:18] LABS: Adenovirus Not Detected (Not Detect); B. parapertussis Not Detected (Not Detecte); Bordetella pertussis Not Detected (Not Detect); Chlamydophila pneumoniae Not Detected (Not Detect); Coronavirus 229E Not Detected (Not Detect); Coronavirus HKU1 Not Detected (Not Detect); Coronavirus NL 63 Not Detected (Not Detect); Coronavirus OC43 Not Detected (Not Detect); Human Metapneumovirus Not Detected (Not Detect); Human Rhinovirus/Enterovirus Not Detected (Not Detect); Influenza A(No subj detected) Not Detected (Not Detect); Influenza B Not Detected (Not Detect); Mycoplasma pneumoniae Not Detected (Not Detect); Parainfluenza Virus 1 Not Detected (Not Detect); Parainfluenza Virus 2 Not Detected (Not Detect); Parainfluenza Virus 3 Not Detected (Not Detect); Parainfluenza Virus 4 Not Detected (Not Detect); Respiratory Syncytial Virus Not Detected (Not Detect); SARS- CoV-2 Not Detected (Not Detecte)
[2024-02-24 22:46] LABS: Appearance Urine UA CLEAR; Bilirubin Urine UA NEGATIVE (NEGATIVE); Color Urine UA YELLOW; Glucose Urine UA NEGATIVE (Negative); Ketones Urine UA TRACE (NEGATIVE); Leukocyte Esterase Urine UA TRACE (NEGATIVE); Nitrite Urine UA NEGATIVE (Negative); Occult Blood Urine UA NEGATIVE (Negative); Protein Urine UA NEGATIVE (Negative); pH Urine UA 6.5 (4.5-8.0)
[2024-02-24 22:53] LABS: Bacteria Urine Moderate (10-30); Culture Indicated Urine Specimen Cultured; Hyaline Casts Urine 1-5/LPF; RBC Urine 1-5/HPF (0-5/HPF); Squamous Epithelial Cell Urine 1-5 /HPF (0-5/HPF); Urine Volume 10mL (spun); WBC Urine 5-10/HPF (0-5/HPF)
[2024-02-24] MEDS: CIPROFLOXACIN 250 MG TABLET 500 MG PO (23:04)
== END 2024-02-24 23:26 | disposition home or self-care (01) ==
PROVIDERS: Emergency Provider Emergency Medicine; PCP Family Medicine
DX: R03.1 Nonspecific low blood-pressure reading (principal); R82.71 Bacteriuria
CPT/HCPCS: 36415; 71045; 80053; 81001; 83735; 85025; 87086; 87633; 93005; 93010; 99283; 99284

== ENCOUNTER 2024-04-14 17:19 | Inpatient (IN) | payer MEDICARE, OTHER, SELFPAY ==
[2023-04-27 00:16] VITALS: BMI 25.5
[2024-04-14] VITALS (41 sets, daily range): BP systolic 110–155; BP diastolic 57–78; PULSE 54–85; RESP 12–29; TEMP 35.8–36.9; O2SAT 95–99; BMI 23.6
--- NOTE | 2024-04-14 17:24 | DI.CT.S_ITS ---
PROCEDURE: CT STROKE INDICATIONS: cva TECHNIQUE: Noncontrast 4.5 mm thick angled axial sections acquired from the foramen magnum to the vertex, with coronal reformats. For radiation dose reduction, the following was used: automated exposure control, adjustment of mA and/or kV according to patient size. COMPARISON: [facility], CT, CT STROKE, 01/14/2021, 19:22. FINDINGS: CSF spaces: Basal cisterns are patent. No extra-axial fluid collections. Ventricles are normal in size and shape. Brain: No midline shift. No intracranial masses or hemorrhage. Luciano-white matter interface is normal. Moderate atrophy and white matter chronic ischemic change. Old lacunar infarcts noted in the right caudate and left lentiform nucleus Skull and face: Calvarium and visualized facial bones are intact, without suspicious lesions. Sinuses: Visualized sinuses and mastoids are clear. IMPRESSION: Atrophy and chronic ischemic change without intracranial hemorrhage or mass effect This study fulfills neurological imaging criteria for inclusion or exclusion of acute stroke therapies based on available published neurological imaging guidelines. Note: Critical results were discussed with Dr. Magdaleno at 04:39 PM [place] time on 04/14/24 Approved by: Gilberto Perez M.D. on 04/14/2024 at 16:39
--- NOTE | 2024-04-14 17:24 | DI.CT.S_ITS ---
PROCEDURE: CT ANGIO HEAD AND NECK INDICATIONS: cva TECHNIQUE: After the administration of intravenous contrast, 1 mm thick sections acquired from the aortic arch through the [place] of [place]. MIP reformats of the arterial vasculature were utilized. For radiation dose reduction, the following was used: automated exposure control, adjustment of mA and/or kV according to patient size. COMPARISON: [facility], CT, CT ANGIO HEAD AND NECK, 03/14/2021, 15:31. FINDINGS: Cerebral CT Angiogram: Internal carotid arteries: No acute findings. Intracranial ICA are patent with no significant stenosis. No occlusion. No aneurysm. Anterior cerebral arteries: Unremarkable. No significant stenosis. No occlusion. No aneurysm. Middle cerebral arteries: Unremarkable. No significant stenosis. No occlusion. No aneurysm. Posterior cerebral arteries: Hypoplasia/aplasia of the right P1 LIVESTOCK EXHIBITOR noted. The P2 segment is supplied by a widely patent posterior communicating artery. Remainder of the distal vasculature unremarkable. Basilar artery: Unremarkable. No significant stenosis. No occlusion. No aneurysm. Vertebral arteries: Left vertebral artery dominance. Diminutive but patent right vertebral artery terminates in the posterior inferior cerebellar artery Dural venous sinuses: Unremarkable given phase of enhancement. Other: Arterial phase brain parenchyma is unremarkable. Neck CT Angiogram: Internal carotid arteries: Bilateral atherosclerotic plaque in both proximal internal carotid arteries greater than left. Persistent 80 percent stenosis in the left proximal ICA. No significant stenosis on the right. Common carotid arteries: Unremarkable. No significant stenosis. No dissection or occlusion. External carotid arteries: Unremarkable. No occlusion. Vertebral arteries: Dominant left vertebral artery Other: Degenerative disc disease and arthropathy in the cervical spine. Lower cervical spine interbody fusion with plate and screw instrumentation in good graft incorporation Aortic Arch and Mediastinum: Partially visualized aortic arch unremarkable without evidence of aneurysm. Origins of the great vessels unremarkable. IMPRESSION: Stable approximately 80 percent left proximal ICA atherosclerotic stenosis. No significant stenosis in the right proximal ICA. Unremarkable intracranial CT angiogram. No large vessel occlusion, aneurysm or vascular malformation Any quantitative measurements of stenosis were performed using NASCET criteria. Approved by: Gilberto Perez M.D. on 04/14/2024 at 17:21
[2024-04-14 17:31] LABS: Add Manual Diff / Slide Review NO; Basophils Absolute Auto 0 /uL (0-100); Basophils Percent Auto 0.6 % (0-2); Eosinophils Absolute Auto 100 /uL (0-450); Eosinophils Percent Auto 1.1 % (2-4); Hematocrit 40.8 % (41-53); Hemoglobin 13.8 g/dL (13.5-17.5); Lymphocytes Absolute Auto 1600 /uL (1100-4500); Lymphocytes Percent Auto 24.3 % (25-40); Mean Corpuscular HGB Conc 33.7 % (30-36); Mean Corpuscular Hemoglobin 32.4 PG (26-34); Mean Corpuscular Volume 96.2 fL (80-100); Monocytes Absolute Auto 900 /uL (0-900); Monocytes Percent Auto 13.3 % (3-14); Neutrophils Absolute Auto 4100 /uL (1500-7000); Neutrophils Percent Auto 60.7 % (50-75); Platelet Count 265 X10^3/uL (150-400); Red Blood Cell Count 4.24 X10^6/uL (4.5-5.9); Red Cell Distribution Width 14.7 % (11.6-14.8); White Blood Cell Count 6.8 X10^3/uL (4.5-11.0)
[2024-04-14] MEDS: DEXTROSE 50 % IN WATER 25 GM/50 ML SYRINGE IV (17:35)
--- NOTE | 2024-04-14 17:37 | EKG_ITS ---
[address] [address] [place] [address] Test Date: 2024-04-14 Pat Name: Sotero Kasper Department: [facility] Room: Gender: Male Rn Nursery: DESTINY : 1935 Requested By: Order Number: [id number] Reading MD: Selvin Luo Measurements Intervals [place] Rate: 74 P: 74 OR: 224 QRS: 267 QRSD: 168 T: 23 QT: 604 QTc: 670 Interpretive Statements Sinus rhythm with 1st degree AV block Right bundle branch block Electronically Signed On 04-15-2024 8:48:46 PDT by Selvin Luo
[2024-04-14 17:39] LABS: PTT Partial Thromboplastin Tim 34 SECONDS (25.1-36.5)
--- NOTE | 2024-04-14 17:39 | ED.GENADULT ---
HPI - General Adult General Chief complaint: Neuro Symptoms/Deficit Stated complaint: Code Stroke Time Seen by Provider: 04/14/24 17:24 Source: family, RN notes reviewed and old records reviewed Mode of arrival: EMS Limitations: altered mental status History of Present Illness HPI narrative: 89-year-old male presents with concern for code stroke patient was last known normal at 1:30 p.m. when he laid down for a nap. Patient's woke him up at 5:30 p.m. because it was time for dinner altered, having difficulty with speech does not appear to have a droop with some weakness of geriatric aide on the left and dragged leg per EMS of the left. Patient has a generalized weakness per EMS as well. Has had difficulty expressing himself. Glucose in the field was in the 70s. Patient does not give any history but does track. Patient's glucose in the ER is in the 50s on recheck. Patient's family arrived stated he has been a little bit weaker in the last day but overall has been normal. She notes they had memorial yesterday so has been a little bit stressed. He does have some mild dementia has had a prior stroke. He is on Brilinta and aspirin daily for anticoagulation. She notes that he was normal when he laid down for nap at 1:30 a.m. and when she woke him at 5:34 a.m. dinner patient has had significant difficulty with speech and movement. He is on metformin and glipizide for diabetes has not had regular issues with hypoglycemia has not had any recent medication changes overall. Related Data Home Medications Medication Instructions Recorded Confirmed glipizide 2.5 mg tablet, extended 2.5 mg PO DAILY 01/14/21 04/14/24 release 24 hr ticagrelor 90 mg tablet (Brilinta) 90 mg PO BID 10/23/21 04/14/24 amiodarone 200 mg tablet 200 mg PO DAILY 04/27/23 04/14/24 aspirin 81 mg tablet 81 mg PO DAILY 04/27/23 04/14/24 atorvastatin 20 mg tablet 20 mg PO DAILY 04/27/23 04/14/24 duloxetine 20 mg capsule,delayed 20 mg PO DAILY 04/27/23 04/15/24 release esomeprazole magnesium 40 mg 40 mg PO BID 04/27/23 04/14/24 capsule,delayed release metformin 500 mg tablet 500 mg PO DAILY 04/27/23 04/14/24 nitroglycerin 0.4 mg sublingual 0.4 mg sublingual Q5-15M PRN chest 04/27/23 04/14/24 tablet pain ondansetron 4 mg disintegrating 4 mg PO Q8H PRN nausea 04/27/23 04/14/24 tablet acetaminophen 500 mg tablet 500 mg PO DAILY 04/15/24 04/15/24 furosemide 20 mg tablet 20 mg PO DAILY 04/15/24 04/15/24 levothyroxine 88 mcg tablet 88 mcg PO DAILY@0600 04/15/24 04/15/24 Previous Rx's Medication Instructions Recorded magnesium oxide 400 mg (241.3 mg 400 mg PO BID #180 tabs 10/08/20 magnesium) tablet Allergies Allergy/AdvReac Type Severity Reaction Status Date / Time Ylwuhgk-[id number]-OdI Reductase Allergy Intermediate MUSCLE PAIN Verified 11/15/22 11:18 Inhibitor [[id number] REDUCTASE INHIBITOR] piroxicam [PIROXICAM] Allergy Mild NAUSEA, Verified 11/15/22 11:18 VOMITING dabigatran etexilate AdvReac Hematuria Verified 11/15/22 11:18 Review of Systems Review of Systems ROS Unobtainable: Unobtainable due to mental status/LOC Patient History Medical History Nocturia Nocturia Thyroid disease Heart attack Arthritis Presence of Watchman left atrial appendage closure device (~01/07/19) Spinal stenosis of lumbar region Psychosexual dysfunction History of fatigue History of hematuria Paroxysmal A-fib Sick sinus syndrome RBBB History of CVA (cerebrovascular accident) History of dizziness Lumbosacral radiculopathy at L5 Elevated serum homocysteine level Neuropathy of both feet Memory deficit Depression Anxiety Sleep apnea (~2012) Dysuria Urinary retention Renal insufficiency Impotence History of angina Dyslipidemia CAD (coronary artery disease) Pacemaker (~2013) Diabetes Osteoarthritis TIA (transient ischemic attack) History of esophageal reflux Spinal stenosis in cervical region DDD (degenerative disc disease), cervical Surgical History History of fusion of cervical spine S/P drug eluting coronary stent placement History of cardiac cath (~2012) History of cholecystectomy (~2012) History of tonsillectomy History of cystoscopy History of vasectomy History of appendectomy H/O shoulder surgery Status post right foot surgery H/O thumb surgery H/O laminectomy History of bladder surgery History of lumbar fusion Social History marital status: details: aisha Horner, lives in [place] household members: spouse lives independently: Yes caregiver/support person: No housing: house Smoking Status: Never smoker alcohol intake: current substance use type: does not use Smoking Status: Never smoker alcohol intake frequency: holidays/special occasions only Substance Use Type: does not use Exam Narrative Exam Narrative: GEN: Elderly male, alert patient will not his head yes or no on recheck although initially mostly just stares he does not attempt to answer questions follows some commands but not all, patient appears to be in moderate distress. HEENT: Atraumatic, pupils are equal round reactive to light, extraocular movements are intact, nares are clear, TMs are clear with no fluid, there is no conjunctival pallor. Throat is clear without any exudates, erythema, tonsillar enlargement or uvular deviation, patient had some facial droop initially but not on repeat exam. HEART: Regular rate and rhythm without murmur, clicks, rubs. No carotid bruits, pulses are equal in upper and lower extremities LUNGS:Lungs clear to auscultation, no wheezes, rales, crackles, chest moves symmetrically ABD:bowel sounds normal, soft, non-tender, no guarding, rebound, rigidity, no masses noted, no hepatosplenomegaly :No CVA tenderness MSCL: Non-tender, no muscle atrophy, set up inspector are equal bilaterally and with push and pull, patient will not hold his arms for drift. K unable to assess for drift or weakness in his lower extremities he does not lift them and they fall back to the bed on both sides. NEURO:CN 2-12 intact, sensation normal. Initial Vital Signs Initial Vital Signs: Vital Signs Pulse Rate 72 04/14/24 17:32 Pulse Oximetry 96 04/14/24 17:32 Scores NIH Stroke Scale Level of Conciousness: Alert, keenly responsive Ask month/age: Answers neither question correctly, aphasic, stuporous, coma (Does not answer) Open/close eyes, close hand: Performs both tasks correctly Best gaze horizontal: Normal Facial palsy: Normal symetrical movement Sensory on face/arms/legs: Normal, no sensory loss Best language: Mute, global aphasia Dysarthria: Severe, unintelligible Extinction or inattention: No abnormality Course Orders Ordered: Discontinued Medications Acetaminophen (Acetaminophen 325 Mg Tablet) 650 mg PO Q6H PRN PRN Reason: Fever/Mild Pain (1-3) Acetaminophen (Acetaminophen 325 Mg Tablet) 650 mg PO DAILY [facility] Last Admin: 04/16/24 09:08 Dose: 650 mg Documented By: LIBIA Hydrocodone Bitart/Acetaminophen (Hydrocodone/Acet 5/325 Tablet) 1 tab PO Q4H PRN PRN Reason: Pain, Moderate (4-6) Amiodarone HCl (Amiodarone 200 Mg Tablet) 200 mg PO DAILY [facility] Last Admin: 04/16/24 09:08 Dose: 200 mg Documented By: Admin: 04/15/24 09:09 Dose: 200 mg Documented By: SONALI Aspirin (Aspirin Ec 325 Mg Tablet) 325 mg PO NOW ONE Stop: 04/14/24 18:55 Last Admin: 04/14/24 19:10 Dose: 325 mg Documented By: Atorvastatin Calcium (Atorvastatin 20 Mg Tablet) 20 mg PO BEDTIME [facility] Last Admin: 04/15/24 20:58 Dose: 20 mg Documented By: Admin: 04/14/24 21:29 Dose: 20 mg Documented By: KATHERINE Calcium Carbonate (Calcium Carbonate 500 Mg Tab) 1,000 mg PO Q4HR PRN PRN Reason: Dyspepsia Dextrose (Dextrose 50 % In Water 25 Gm/50 Ml Syringe) 25 gm IV NOW ONE Stop: 04/14/24 17:36 Last Admin: 04/14/24 17:35 Dose: 25 gm Documented By: Docusate Sodium (Docusate 100 Mg Capsule) 100 mg PO BID [facility] Last Admin: 04/16/24 09:07 Dose: 100 mg Documented By: Admin: 04/15/24 20:58 Dose: 100 mg Documented By: Admin: 04/15/24 09:09 Dose: 100 mg Documented By: Admin: 04/14/24 21:26 Dose: Not Given Documented By: KATHERINE Duloxetine HCl (Duloxetine 30 Mg Capsule) 30 mg PO DAILY [facility] Last Admin: 04/16/24 09:08 Dose: 30 mg Documented By: Admin: 04/15/24 09:09 Dose: 30 mg Documented By: SONALI Duloxetine HCl (Duloxetine 20 Mg Capsule) 20 mg PO DAILY [facility] Insulin Human Lispro (Insulin Lispro 100 Unit/Ml 3ml Vial) 0 unit SUBCUT ACHS [facility]; Protocol Last Admin: 04/16/24 09:14 Dose: 1 unit Documented By: LIBIA Co-signed By: JESSE Admin: 04/15/24 22:18 Dose: Not Given Documented By: Admin: 04/15/24 17:48 Dose: Not Given Documented By: Admin: 04/15/24 12:26 Dose: 1 unit Documented By: SONALI Co-signed By: MARCUS Admin: 04/15/24 09:10 Dose: 1 unit Documented By: SONALI Co-signed By: MARCUS Admin: 04/14/24 21:00 Dose: Not Given Documented By: KATHERINE Levothyroxine Sodium (Levothyroxine 88 Mcg Tablet) 88 mcg PO DAILY@0600 [facility] Last Admin: 04/16/24 05:44 Dose: 88 mcg Documented By: Admin: 04/15/24 06:27 Dose: 88 mcg Documented By: LIBIA(2) Lorazepam (Lorazepam 2 Mg/Ml Inj) 0.5 mg IV Q6HR PRN PRN Reason: Anxiety Magnesium Hydroxide (Magnesium Hydroxide 30 Ml Udc) 30 ml PO DAILY PRN PRN Reason: Constipation Magnesium Oxide (Magnesium Oxide 400 Mg Tablet) 400 mg PO BID [facility] Last Admin: 04/16/24 09:07 Dose: 400 mg Documented By: Admin: 04/15/24 20:58 Dose: 400 mg Documented By: RIKI Metformin HCl (Met[facility] Hcl 500 Mg Tablet) [facility] Last Admin: 04/16/24 09:07 Dose: 500 mg Documented By: LIBIA Naloxone HCl (Naloxone 0.4 Mg/Ml Vial) 0.2 mg IV Q2MIN PRN PRN Reason: Opiate Reversal Nitroglycerin (Nitroglycerin 0.4 Mg Sl Tab) 0.4 mg SL Q5M PRN PRN Reason: chest pain Glipizide 2.5 Mg Tablet Extended Release 24hr 2.5 mg PO DAILY [facility] Last Admin: 04/16/24 09:09 Dose: Not Given Documented By: LIBIA Ticagrelor [Brilinta (] 90 Mg Tablet) 90 mg PO BID [facility] Last Admin: 04/16/24 09:09 Dose: Not Given Documented By: Admin: 04/15/24 21:38 Dose: Not Given Documented By: MM Ondansetron HCl (Ondansetron 4 Mg/2 Ml Inj) 4 mg IV Q8HR PRN PRN Reason: Nausea And Vomiting Ondansetron HCl (Ondansetron 4 Mg Odt) 4 mg PO Q8HR PRN PRN Reason: Nausea And Vomiting Ondansetron HCl (Ondansetron 4 Mg Odt) 4 mg PO Q8H PRN PRN Reason: nausea Pantoprazole Sodium (Pantoprazole Dr 20 Mg Tablet) 20 mg PO 0600 [facility] Last Admin: 04/15/24 06:24 Dose: Not Given Documented By: LIBIA(2) Pantoprazole Sodium (Pantoprazole Dr 40 Mg Tablet) 40 mg PO 0700 [facility] Last Admin: 04/15/24 06:26 Dose: 40 mg Documented By: LIBIA(2) Pantoprazole Sodium (Pantoprazole Dr 40 Mg Tablet) 40 mg PO BID [facility] Last Admin: 04/16/24 09:07 Dose: 40 mg Documented By: Admin: 04/15/24 20:58 Dose: 40 mg Documented By: MM Vital Signs Vital signs: Vital Signs - 8 hr 04/14/24 17:32 04/14/24 17:33 04/14/24 17:33 Temperature Pulse Rate 72 64 Respiratory Rate Blood Pressure 135/71 Pulse Oximetry 96 98 Oxygen Delivery Method 04/14/24 17:35 04/14/24 17:40 04/14/24 17:44 Temperature 96.5 F L Pulse Rate 69 74 74 Respiratory Rate 19 16 12 Blood Pressure 135/71 Pulse Oximetry 96 97 96 Oxygen Delivery Method Room Air 04/14/24 17:45 04/14/24 17:50 04/14/24 17:55 Temperature Pulse Rate 74 75 73 Respiratory Rate 16 22 18 Blood Pressure Pulse Oximetry 97 97 98 Oxygen Delivery Method Room Air 04/14/24 18:00 04/14/24 18:01 04/14/24 18:01 Temperature Pulse Rate 65 66 Respiratory Rate 17 16 Blood Pressure 120/67 Pulse Oximetry 98 98 Oxygen Delivery Method 04/14/24 18:05 04/14/24 18:10 04/14/24 18:15 Temperature Pulse Rate 66 70 69 Respiratory Rate 18 25 H 15 Blood Pressure Pulse Oximetry 98 98 98 Oxygen Delivery Method Room Air 04/14/24 18:20 04/14/24 18:25 04/14/24 18:30 Temperature Pulse Rate 62 55 L Respiratory Rate 21 20 Blood Pressure 110/57 L Pulse Oximetry 97 98 Oxygen Delivery Method Room Air 04/14/24 18:30 04/14/24 18:35 04/14/24 18:40 Temperature Pulse Rate 63 54 L 54 L Respiratory Rate 18 17 19 Blood Pressure Pulse Oximetry 96 97 95 Oxygen Delivery Method 04/14/24 18:45 04/14/24 18:50 04/14/24 18:55 Temperature Pulse Rate 69 80 60 Respiratory Rate 21 26 H 20 Blood Pressure Pulse Oximetry 98 97 97 Oxygen Delivery Method 04/14/24 19:00 04/14/24 19:00 04/14/24 19:05 Temperature Pulse Rate 68 54 L Respiratory Rate 20 16 Blood Pressure 118/62 Pulse Oximetry 97 98 Oxygen Delivery Method 04/14/24 19:10 Temperature Pulse Rate 74 Respiratory Rate 18 Blood Pressure Pulse Oximetry 97 Oxygen Delivery Method Room Air Medical Decision Making Lab Data 04/16/24 05:13 04/16/24 05:13 Labs: Lab Results 04/14/24 04/14/24 04/14/24 Range/Units 17:20 17:33 18:03 WBC 6.8 (4.5-11.0) X10^3/uL RBC 4.24 L (4.5-5.9) X10^6/uL Hgb 13.8 (13.5-17.5) g/dL Hct 40.8 L (41-53) % MCV 96.2 (80-100) fL MCH 32.4 (26-34) PG MCHC 33.7 (30-36) % RDW 14.7 (11.6-14.8) % Plt Count 265 (150-400) X10^3/uL Neut % (Auto) 60.7 (50-75) % Lymph % (Auto) 24.3 L (25-40) % [place] % (Auto) 13.3 (3-14) % Eos % (Auto) 1.1 L (2-4) % Baso % (Auto) 0.6 (0-2) % Neut # (Auto) 4100 (4359-3678) /uL Lymph # (Auto) 1600 (7731-8469) /uL [place] # (Auto) 900 (0-900) /uL Eos # (Auto) 100 (0-450) /uL Baso # (Auto) 0 (0-100) /uL PT 12.0 (9.4-12.5) SECONDS INR 1.0 (0.9-1.3) APTT 34 (25.1-36.5) SECONDS Sodium 134 L (137-145) mmol/L Potassium 4.2 (3.4-5.1) mmol/L Chloride 100 (98-107) mmol/L Carbon Dioxide 25 (22-32) mmol/L BUN 25 H (9-20) mg/dL Creatinine 1.65 H (0.66-1.25) mg/dL Estimated GFR 39 L (>60) mL/min BUN/Creatinine Ratio 15.2 (6-22) Glucose 58 L (80-110) mg/dL Calcium 9.1 (8.4-10.2) mg/dL Total Bilirubin 0.7 (0.2-1.3) mg/dL AST 57 (17-59) IU/L ALT 51 H (<50) IU/L Alkaline Phosphatase 74 (38-126) U/L Total Creatine Kinase 29 L (55-170) U/L Troponin I < 0.012 (0.01-0.034) ng/mL Total Protein 7.0 (6.3-8.2) g/dL Albumin 4.1 (3.5-5.0) g/dL Globulin 2.9 (1.7-4.1) g/dL Albumin/Globulin Ratio 1.4 (1.0-2.8) Ethyl Alcohol < 10 ( - 10) mg/dL Chlamy pneumoniae PCR Not detected (Not Detect) Adenovirus (PCR) Not detected (Not Detect) B.parapertussis DNA PCR Not detected (Not Detecte) Coronavirus OC43 (PCR) Not detected (Not Detect) Coronavirus HKU1 (PCR) Not detected (Not Detect) Coronavirus 229E (PCR) Not detected (Not Detect) SARS-CoV-2 (PCR) Negative Not detected (Negative) Coronavirus NL63 (PCR) Not detected (Not Detect) Human Metapneumovir PCR Not detected (Not Detect) Influenza Type A (PCR) Not detected (Not Detect) Influenza Type B (PCR) Not detected (Not Detect) M. pneumoniae (PCR) Not detected (Not Detect) Parainfluenza 1 (PCR) Not detected (Not Detect) Parainfluenza 2 (PCR) Not detected (Not Detect) Parainfluenza 3 (PCR) Not detected (Not Detect) Parainfluenza 4 (PCR) Not detected (Not Detect) RSV (PCR) Not detected (Not Detect) Entero/Rhino (PCR) Not detected (Not Detect) Point of Care Testing Glucose POC 121 Point of care testing: Point of Care Testing Glucose POC 121 Imaging Data CTA - brain/neck: Radiologist's Impression: Close Brain CT (Signed) Perez,Gilberto - 04/14/24 Head/Neck CTA (Signed) Perez,[facility] - 04/14/24 Launch?Image [address] [address] [address] Scan Report Signed Patient: Sotero Kasper MR#: [id number] : 1935 Acct:[id number] Age/Sex: 89 / M Date of Service: 04/14/24 Loc: ED Accession Number: [id number] Procedure: CT angio head and neck Ordering Provider: Priya Magdaleno D.O. PROCEDURE: CT ANGIO HEAD AND NECK INDICATIONS: cva TECHNIQUE: After the administration of intravenous contrast, 1 mm thick sections acquired from the aortic arch through the [place] of [place]. MIP reformats of the arterial vasculature were utilized. For radiation dose reduction, the following was used: automated exposure control, adjustment of mA and/or kV according to patient size. COMPARISON: [facility], CT, CT ANGIO HEAD AND NECK, 03/14/2021, 15:31. FINDINGS: Cerebral CT Angiogram: Internal carotid arteries: No acute findings. Intracranial ICA are patent with no significant stenosis. No occlusion. No aneurysm. Anterior cerebral arteries: Unremarkable. No significant stenosis. No occlusion. No aneurysm. Middle cerebral arteries: Unremarkable. No significant stenosis. No occlusion. No aneurysm. Posterior cerebral arteries: Hypoplasia/aplasia of the right P1 RATE ENGINEER noted. The P2 segment is supplied by a widely patent posterior communicating artery. Remainder of the distal vasculature unremarkable. Basilar artery: Unremarkable. No significant stenosis. No occlusion. No aneurysm. Vertebral arteries: Left vertebral artery dominance. Diminutive but patent right vertebral artery terminates in the posterior inferior cerebellar artery Dural venous sinuses: Unremarkable given phase of enhancement. Other: Arterial phase brain parenchyma is unremarkable. Neck CT Angiogram: Internal carotid arteries: Bilateral atherosclerotic plaque in both proximal internal carotid arteries greater than left. Persistent 80 percent stenosis in the left proximal ICA. No significant stenosis on the right. Common carotid arteries: Unremarkable. No significant stenosis. No dissection or occlusion. External carotid arteries: Unremarkable. No occlusion. Vertebral arteries: Dominant left vertebral artery Other: Degenerative disc disease and arthropathy in the cervical spine. Lower cervical spine interbody fusion with plate and screw instrumentation in good graft incorporation Aortic Arch and Mediastinum: Partially visualized aortic arch unremarkable without evidence of aneurysm. Origins of the great vessels unremarkable. IMPRESSION: Stable approximately 80 percent left proximal ICA atherosclerotic stenosis. No significant stenosis in the right proximal ICA. Unremarkable intracranial CT angiogram. No large vessel occlusion, aneurysm or vascular malformation Any quantitative measurements of stenosis were performed using NASCET criteria. Approved by: Gilberto Perez M.D. on 04/14/2024 at 17:21 CT scan - head: Radiologist's Impression: [place] [address] CT Scan Report Signed Patient: Sotero Kasper MR#: [id number] : 1935 Acct:[id number] Age/Sex: 89 / M Date of Service: 04/14/24 Loc: ED Accession Number: [id number] Procedure: CT Stroke Ordering Provider: Priya Magdaleno D.O. PROCEDURE: CT STROKE INDICATIONS: cva TECHNIQUE: Noncontrast 4.5 mm thick angled axial sections acquired from the foramen magnum to the vertex, with coronal reformats. For radiation dose reduction, the following was used: automated exposure control, adjustment of mA and/or kV according to patient size. COMPARISON: [facility], CT, CT STROKE, 01/14/2021, 19:22. FINDINGS: CSF spaces: Basal cisterns are patent. No extra-axial fluid collections. Ventricles are normal in size and shape. Brain: No midline shift. No intracranial masses or hemorrhage. Luciano-white matter interface is normal. Moderate atrophy and white matter chronic ischemic change. Old lacunar infarcts noted in the right caudate and left lentiform nucleus Skull and face: Calvarium and visualized facial bones are intact, without suspicious lesions. Sinuses: Visualized sinuses and mastoids are clear. IMPRESSION: Atrophy and chronic ischemic change without intracranial hemorrhage or mass effect This study fulfills neurological imaging criteria for inclusion or exclusion of acute stroke therapies based on available published neurological imaging guidelines. Note: Critical results were discussed with Dr. Magdaleno at 04:39 PM [place] time on 04/14/24 Approved by: Gilberto Perez M.D. on 04/14/2024 at 16:39 ECG Data Attestation: I personally reviewed and interpreted this ECG as follows: Prior ECG tracings: available for review Interpretation: Sinus rhythm with first-degree AV block rate of 74 KS 224 QRS of [address] elevation depression appreciated. Patient has priors from March and February occasionally paced patient does not have significant ST changes overall appears similar. MDM Narrative Medical decision making narrative: 89-year-old male possible stroke although patient had a glucose of 70s in the field 50 here in the department received an amp of dextrose improved with the 200 range patient has a little bit more interactive but still essentially mute. Supervisor [employer] are fairly equal on repeat evaluation, no obvious facial droop. Unable to assess his lower extremity strength as he does not follow most commands unable to assess for ataxia. Does not seem to have any lateral gaze palsy or extension on eval. He will answer with yes note with his head for most questions but does not really attempt to speak but does seem quite frustrated at his inability to speak. Unable to obtain an full NIH secondary to lack of following commands. Patient used to be on Eliquis but according to his failed and had to be changed to aspirin and Brilinta. He is scheduled to have an ablation for atrial fibrillation in April. Non-con head CT is negative for acute change does note atrophy and chronic ischemic change without intracranial hemorrhage or mass effect. CT angio shows stable proximal 80% left proximal ICA atherosclerotic stenosis no significant stenosis in right proximal ICA. CBC shows a white count of 6.8 hemoglobin of 13 platelets of 265, INR is 1 creatinine 1.65 appears consistent with priors sodium is 134 potassium is 4 2 chloride 100 CO2 of 25 and a BUN 25, calcium 9.1 ALT is 51 but AST and total bili are appropriate total CK is 29 with a triple less than 0.012. ETOH is negative. COVID negative. Respiratory panel Patient is 150 on recheck at 1 hour. Will continue to monitor. Patient has continued to have some improvement with his expressive aphasia. Spoke with Neurology, [facility]. Dr. Chapman recommends aspirin 325 mg based on patient's weigh, along with patient's Brilinta. Would have patient continue the Brilinta for now but would optimize her medication by increasing Lipitor to 40 mg. Would recommend MR but does not have to be emergent. Traditional stroke workup. Agrees it seems more to be high-risk TIA although reviewed it was difficult to have a full eval. Spoke with Dr. Howard. Accepts for inpatient. Discussed recommendations from Neurology. Discharge Plan Departure Patient Disposition: Admitted As Inpatient Clinical Impression: Hypoglycemia, Acute CVA (cerebrovascular accident) Admit Date/Time: 04/14/24 19:14 Admit Provider: Diane Howard
[2024-04-14 17:41] LABS: Alanine Aminotransferase 51 IU/L (<50); Albumin 4.1 g/dL (3.5-5.0); Albumin Globulin Ratio 1.4 (1.0-2.8); Alkaline Phosphatase 74 U/L (38-126); Aspartate Aminotransferase 57 IU/L (17-59); BUN Creatinine Ratio 15.2 (6-22); Bilirubin Total 0.7 mg/dL (0.2-1.3); Blood Urea Nitrogen 25 mg/dL (9-20); Calcium 9.1 mg/dL (8.4-10.2); Carbon Dioxide 25 mmol/L (22-32); Chloride 100 mmol/L (98-107); Creatine Kinase 29 U/L (55-170); Estimated Glomerular Filt Rate 39 mL/min (>60); Ethanol (ETOH) < 10 mg/dL; Globulin 2.9 g/dL (1.7-4.1); Glucose 58 mg/dL (80-110); HEMOLYSIS < 15 (0-50); Potassium 4.2 mmol/L (3.4-5.1); Sodium 134 mmol/L (137-145)
[2024-04-14 17:52] LABS: Troponin I < 0.012 ng/mL (0.01-0.034)
[2024-04-14 17:56] LABS: COVID19 -Nasal RAPID Negative (Negative)
[2024-04-14 19:08] LABS: Adenovirus Not Detected (Not Detect); B. parapertussis Not Detected (Not Detecte); Bordetella pertussis Not Detected (Not Detect); Chlamydophila pneumoniae Not Detected (Not Detect); Coronavirus 229E Not Detected (Not Detect); Coronavirus HKU1 Not Detected (Not Detect); Coronavirus NL 63 Not Detected (Not Detect); Coronavirus OC43 Not Detected (Not Detect); Human Metapneumovirus Not Detected (Not Detect); Human Rhinovirus/Enterovirus Not Detected (Not Detect); Influenza A Not Detected (Not Detect); Influenza B Not Detected (Not Detect); Mycoplasma pneumoniae Not Detected (Not Detect); Parainfluenza Virus 1 Not Detected (Not Detect); Parainfluenza Virus 2 Not Detected (Not Detect); Parainfluenza Virus 3 Not Detected (Not Detect); Parainfluenza Virus 4 Not Detected (Not Detect); Respiratory Syncytial Virus Not Detected (Not Detect); SARS- CoV-2 Not Detected (Not Detecte)
[2024-04-14] MEDS: ASPIRIN EC 325 MG TABLET PO (19:10)
--- NOTE | 2024-04-14 19:15 | PC.NURSE ---
Discussed BG with . ok for pt to have PO intake as pt has passed swallow screen. Apple juice, cracker, and ensure given to pt. Pt tolerated well.
[2024-04-14 19:34] LABS: UR Morphine/Opiate cutoff 300 Negative (Negative); Ur Creatinine Normal (Normal); Ur Specific Gravity Normal (Normal); Urine Amphetamines Negative (Negative); Urine Barbiturates Negative (Negative); Urine Benzodiazepines Negative (Negative); Urine Cocaine Negative (Negative); Urine MDMA Negative (Negative); Urine Methadone Negative (Negative); Urine Methamphetamines Negative (Negative); Urine Oxycodone Negative (Negative); Urine Phencyclidine Negative (Negative); Urine Tetrahydrocannabinol Negative (Negative); Urine Tricyclic Antidepressant Negative (Negative); Urine pH Normal (Normal)
[2024-04-14 19:37] LABS: Appearance Urine UA CLEAR; Bilirubin Urine UA NEGATIVE (NEGATIVE); Color Urine UA YELLOW; Glucose Urine UA 1+ g/dL (Negative); Ketones Urine UA NEGATIVE (NEGATIVE); Leukocyte Esterase Urine UA NEGATIVE (NEGATIVE); Nitrite Urine UA NEGATIVE (Negative); Occult Blood Urine UA TRACE-INTACT (Negative); Protein Urine UA NEGATIVE (Negative); Specific Gravity Urine UA <=1.005 (1.000-1.035); Urobilinogen Urine UA 0.2 E.U./dL (0.2)
[2024-04-14 19:44] LABS: Bacteria Urine None Seen; Culture Indicated Urine Cult Not Indicated; RBC Urine 1-5/HPF (0-5/HPF); Squamous Epithelial Cell Urine None Seen (0-5/HPF); Urine Volume 10mL (spun); WBC Urine None Seen (0-5/HPF)
[2024-04-14] MEDS: ATORVASTATIN 20 MG TABLET PO (21:29)
--- NOTE | 2024-04-15 02:57 | PC.NURSE ---
manager shift: Patient arrived from ED approximately 2029. Patient is AxOx3, speech is a bit delayed per spouse, NIH: 5. Patient states that his left leg feels weaker than the right. Ambulatory w/ 1PA & FWW. Denies pain, nausea, SOB, or dizziness. VSS, O2 saturation 98% on RA. BG 155 on arrival, performing Q4hr checks. Patient stated he has been experiencing decreased appetite, had a snack before bed. Oriented to call-light, fall precautions in place. Plan of care ongoing.
[2024-04-15 04:20] VITALS: BP 158/84; PULSE 85; RESP 16; TEMP 36.2; O2SAT 100
[2024-04-15 06:06] LABS: Add Manual Diff / Slide Review NO; Basophils Absolute Auto 0 /uL (0-100); Basophils Percent Auto 0.8 % (0-2); Eosinophils Absolute Auto 100 /uL (0-450); Eosinophils Percent Auto 1.7 % (2-4); Hematocrit 38.5 % (41-53); Hemoglobin 13.2 g/dL (13.5-17.5); Lymphocytes Absolute Auto 1500 /uL (1100-4500); Lymphocytes Percent Auto 25.8 % (25-40); Mean Corpuscular HGB Conc 34.2 % (30-36); Mean Corpuscular Hemoglobin 32.7 PG (26-34); Mean Corpuscular Volume 95.8 fL (80-100); Monocytes Absolute Auto 600 /uL (0-900); Monocytes Percent Auto 10.8 % (3-14); Neutrophils Absolute Auto 3600 /uL (1500-7000); Neutrophils Percent Auto 60.9 % (50-75); Platelet Count 241 X10^3/uL (150-400); Red Blood Cell Count 4.02 X10^6/uL (4.5-5.9); Red Cell Distribution Width 14.7 % (11.6-14.8); White Blood Cell Count 5.9 X10^3/uL (4.5-11.0)
[2024-04-15] MEDS: PANTOPRAZOLE DR 40 MG TABLET PO ×2 (06:26→20:58)
[2024-04-15] MEDS: LEVOTHYROXINE 88 MCG TABLET PO (06:27)
[2024-04-15 06:30] LABS: Alanine Aminotransferase 46 IU/L (<50); Albumin 3.7 g/dL (3.5-5.0); Albumin Globulin Ratio 1.4 (1.0-2.8); Alkaline Phosphatase 80 U/L (38-126); Aspartate Aminotransferase 50 IU/L (17-59); BUN Creatinine Ratio 15.6 (6-22); Bilirubin Total 0.8 mg/dL (0.2-1.3); Blood Urea Nitrogen 22 mg/dL (9-20); Calcium 8.8 mg/dL (8.4-10.2); Carbon Dioxide 24 mmol/L (22-32); Chloride 99 mmol/L (98-107); Estimated Glomerular Filt Rate 48 mL/min (>60); Globulin 2.7 g/dL (1.7-4.1); Glucose 135 mg/dL (80-110); HEMOLYSIS < 15 (0-50); Potassium 4.3 mmol/L (3.4-5.1); Sodium 131 mmol/L (137-145); Total Protein 6.4 g/dL (6.3-8.2)
[2024-04-15 07:47] VITALS: BP 134/83; PULSE 58; RESP 16; TEMP 36.2; O2SAT 97
[2024-04-15] MEDS: DULOXETINE 30 MG CAPSULE PO (09:09)
[2024-04-15] MEDS: AMIODARONE 200 MG TABLET PO (09:09)
[2024-04-15] MEDS: DOCUSATE 100 MG CAPSULE PO ×2 (09:09→20:58)
[2024-04-15] MEDS: INSULIN LISPRO 100 UNIT/ML 3ML VIAL SUBCUT ×2 (09:10→12:26)
--- NOTE | 2024-04-15 10:51 | PC.NURSE ---
Patient up to the bathroom with one person assist, he had a bm and voided. BS 149 and tolerated insulin well. He is visiting with his and daughter now. NIH scale normal this morning.
[2024-04-15 12:00] VITALS: BP 127/72; PULSE 67; RESP 20; TEMP 36.2; O2SAT 97
--- NOTE | 2024-04-15 12:10 | OT.IP.EVAL ---
Past Medical History (Last Reviewed 04/14/24 @ 18:04 by Priya Magdaleno DO) Anxiety Arthritis CAD (coronary artery disease) DDD (degenerative disc disease), cervical Depression Diabetes Dyslipidemia Dysuria Elevated serum homocysteine level Heart attack History of angina History of CVA (cerebrovascular accident) History of dizziness History of esophageal reflux History of fatigue History of hematuria Impotence Lumbosacral radiculopathy at L5 Memory deficit Neuropathy of both feet Nocturia Nocturia Osteoarthritis Pacemaker (~2013) Paroxysmal A-fib 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 RBBB Renal insufficiency Sick sinus syndrome Sleep apnea (~2012) Spinal stenosis in cervical region Spinal stenosis of lumbar region Thyroid disease TIA (transient ischemic attack) Urinary retention Surgical History (Last Reviewed 04/14/24 @ 18:04 by Priya Magdaleno DO) H/O laminectomy H/O shoulder surgery H/O thumb surgery History of appendectomy History of bladder surgery History of cardiac cath (~2012) History of cholecystectomy (~2012) History of cystoscopy History of fusion of cervical spine History of lumbar fusion History of tonsillectomy History of vasectomy S/P drug eluting coronary stent placement Status post right foot surgery Occupational Therapy Inpatient Evaluation/Re-Eval M1 PT/OT-IP Prior Functional Status Start: 04/15/24 11:31 Freq: NEEDED Status: Active Protocol: Document 04/15/24 13:11 CGR (Rec: 04/15/24 13:23 CGR [id number]) Medical Review Prior Functional Status Medical History Reviewed Yes Communication Pt is an effective verbal communicator. He is [place]. Mobility and Gait Manual or motorized w/c and short distances 4WW Activities of Daily Living and IADL's Had assistance of , lives in [facility]. Pts does all LB dressing and they have a shower aide. Pts does all bills, meds, and cooking ( unless going to the dining room) Social History Household Members spouse Living Arrangements Assisted Living Number of Floors (Floors) 3 or More Floors Number of Stairs To Enter/Railing? Elevators and accessible access at [facility] Home Environment Standard Height Toilet,Walk in Shower,Built-In Shower Seat Home Equipment Four Wheel Walker,Manual Wheelchair,Power Wheelchair/ Scooter,Raised Toilet Seat w/ Armrests,Hand Held Shower,Grab Bars Near Toilet,Grab Bars In Shower Employment Status Retired Additional Social History Comment Flat bed and accessible BR at [place] [id number] OT-IP Current Condition Start: 04/15/24 13:11 Freq: Status: Active Protocol: Document 04/15/24 13:11 CGR (Rec: 04/15/24 13:23 CGR [id number]) Occupational Therapy Current Condition Current Condition Evaluation Date 04/15/24 Treatment Diagnosis altered speech and L sided weakness, resolved Diagnosis Onset Date 04/14/24 M3 OT- IP Subjective and Pain Start: 04/15/24 13:11 Freq: Status: Active Protocol: Document 04/15/24 13:11 CGR (Rec: 04/15/24 13:23 CGR [id number]) OT- Subjective Occupational Therapy Visit Type Type Initial Evaluation Visit Start Time 11:54 Visit Stop Time 12:10 OT Pain Assessment Pain When Pain Assessed At Rest Pain Present Pain Present Denied Pain M4 OT- IP ADL's Start: 04/15/24 13:11 Freq: Status: Active Protocol: Document 04/15/24 13:11 CGR (Rec: 04/15/24 13:23 CGR [id number]) OT FHW-[id number]-Vilwjug General Evaluation Self-Feeding Ability Independent Comments OT Self-Feeding Comments lunch tray OT ADL-Grooming Comments OT Grooming Comments declined to perform OT ADL-Oral Care Comments Oral Care Comments declined to perform OT ADL-Dressing Comments OT Dressing Comments dep for LB dressing at baseline. Pt's spouse states that he doesn't need to learn to use a recher or sock aid for LB dressing since she does it for him. OT ADL-Toileting General Evaluation Toileting Ability Independent Comments OT Toileting Comments pt urinated seated on toilet OT ADL-Bathing Comments OT Bathing Comments not performed M5 OT- IP IADL's Start: 04/15/24 13:11 Freq: Status: Active Protocol: Document 04/15/24 13:11 CGR (Rec: 04/15/24 13:23 CGR [id number]) OT-Instrumental Activities of Daily Living Deficits IADL Deficits Identified No Deficits Home Safety Awareness Awareness of Need for Assistance at Home Good Awareness Ability to Problem Solve Emergency Able to Problem Solve Situations Medication Management Medication Management Caregiver Administers Money Management Money Management Caregiver Provides Assistance Meal Preparation Meal Preparation Caregiver Provides Assist Auto Washer Auto Washer Caregiver Provides Assist Driving Driving Comments pt does not drive M6 OT- IP Functional Cognition Start: 04/15/24 13:11 Freq: Status: Active Protocol: Document 04/15/24 13:11 CGR (Rec: 04/15/24 13:23 CGR [id number]) Cognitive Factors Limiting Selfcare Function Cognitive Ability Level of Alertness Alert Patient Orientation Name,Age,Birthday,Month,Date, Year,Day of Week,Place, Situation Attention Span Ability Capable of Focused Attention, Capable of Sustained Attention Ability to Follow Commands Able to Follow One Step Commands with Increased Time, Able to Follow One Step Commands with Repetition OT- Vision and Hearing OT- Hearing Assessment OT- Hearing Assessment Hearing Impaired OT- Vision Assessment Visual Acuity Glasses For Reading Visual Attentiveness WFL Occular Pursuits WFL Visual Convergence Impaired Vision Assessment Comments pt has reading glasses but doesnt use them, he has hearing aides but doesn't use them. M7 OT- IP Mobility and Balance Start: 04/15/24 13:11 Freq: Status: Active Protocol: Document 04/15/24 13:11 CGR (Rec: 04/15/24 13:23 CGR [id number]) OT-Transfer Assessment Sit to and From Stand Sit to and from Stand Independent Transfers Transfer Ability Independent Technique Transfer Destination Toilet Transfer Technique Stand Step Pivot Devices Transfer Assistive Devices Gait Belt,Front Wheeled Walker Comments Mobility Comments Pt ambulated to toielt. His BP with P.T. did drop but he was not symptomatic and pt lives with orthostatic hypotension at baseline. OT- Balance Assessment Sitting Balance and Reactions Static Sitting Balance Ability Good Dynamic Sitting Balance Ability Good M8 OT- IP Objective Assessments Start: 04/15/24 13:11 Freq: Status: Active Protocol: Document 04/15/24 13:11 CGR (Rec: 04/15/24 13:23 CGR [id number]) OT Gross Range of Motion Upper Extremity Range of Motion Assessment Within Functional Limits OT Strength Upper Extremity Strength Assessment Within Functional Limits Comments Strength Comments grossly 4+/5 OT- Coordination Assessment Upper Extremity Finger to Nose Test Within Functional Limits Finger Tapping Test Within Functional Limits OT-Muscle Tone Assessment Muscle Tone WNL Yes OT Sensation Assessment Edema Edema Absent M9 OT- IP Assessment and Plan Start: 04/15/24 13:11 Freq: Status: Active Protocol: Document 04/15/24 13:11 CGR (Rec: 04/15/24 13:23 CGR [id number]) OT Summary Assessment and Plan Potential Rehabilitation Potential Good Analytic Complexity at Evaluation Moderate Summary OT Impairments Balance,Functional Mobility, Dressing,Bathing,Shower Transfers,Activity Tolerance Progress Towards Goals Goals Met Assessment Summary Pt presents as a moderate complexity evaluation s/p admit for mental status change and L sided weakness. pt appears to be at his baseline. No further OT needs. Frequency of Treatment Frequency Of Treatment Discharge Discharge Recommendations OT Discharge Recommendations Home with Assistance Transportation Needs at Discharge Private Vehicle
--- NOTE | 2024-04-15 12:24 | PT.IIE ---
Surgical History (Last Reviewed 04/14/24 @ 18:04 by Priya Magdaleno DO) H/O laminectomy H/O shoulder surgery H/O thumb surgery History of appendectomy History of bladder surgery History of cardiac cath (~2012) History of cholecystectomy (~2012) History of cystoscopy History of fusion of cervical spine History of lumbar fusion History of tonsillectomy History of vasectomy S/P drug eluting coronary stent placement Status post right foot surgery Medical History (Last Reviewed 04/14/24 @ 18:04 by Priya Magdaleno DO) Anxiety Arthritis CAD (coronary artery disease) DDD (degenerative disc disease), cervical Depression Diabetes Dyslipidemia Dysuria Elevated serum homocysteine level Heart attack History of angina History of CVA (cerebrovascular accident) History of dizziness History of esophageal reflux History of fatigue History of hematuria Impotence Lumbosacral radiculopathy at L5 Memory deficit Neuropathy of both feet Nocturia Nocturia Osteoarthritis Pacemaker (~2013) Paroxysmal A-fib 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 RBBB Renal insufficiency Sick sinus syndrome Sleep apnea (~2012) Spinal stenosis in cervical region Spinal stenosis of lumbar region Thyroid disease TIA (transient ischemic attack) Urinary retention Physical Therapy Inpatient Evaluation/Re-Eval M1 PT/OT-IP Prior Functional Status Start: 04/15/24 11:31 Freq: NEEDED Status: Active Protocol: Document 04/15/24 11:31 MB (Rec: 04/15/24 12:23 MB [id number]) Medical Review Prior Functional Status Medical History Reviewed Yes Communication WNLs Mobility and Gait Manual or motorized w/c and short distances 4WRW Activities of Daily Living and IADL's Had assistance of , lives in [facility] portion of [facility] Social History Household Members spouse Living Arrangements Assisted Living Number of Floors (Floors) 3 or More Floors Number of Stairs To Enter/Railing? Elevators and accessible access at [facility] Home Equipment Four Wheel Walker,Manual Wheelchair,Power Wheelchair/ Scooter Employment Status Retired Additional Social History Comment Flat bed and accessible BR at [facility] M2 PT-IP Current Condition Start: 04/15/24 11:31 Freq: NEEDED Status: Active Protocol: Document 04/15/24 11:31 MB (Rec: 04/15/24 12:23 MB [id number]) Physical Therapy Current Condition Current Condition Evaluation Date 04/15/24 Treatment Diagnosis Trouble speaking and left sided weakness, r/o stroke vs TIA M3 PT-IP Subjective Start: 04/15/24 11:31 Freq: NEEDED Status: Active Protocol: Document 04/15/24 11:31 MB (Rec: 04/15/24 12:23 MB [id number]) Subjective Physical Therapy Visit Type Type Initial Evaluation Visit Start Time 11:31 Visit Stop Time 12:01 Number of BRIM PRESSER Visits 0 Physical Therapy Visit Comments Patient Comments Pt is hypoverbal and he does not have complaints. He is agreeable to PT. Supportive and daughters nearby. Patient Goals To go back to [facility] Pain Assessment Pain When Pain Assessed At Rest Pain Present Pain Present Denied Pain M4 PT-IP Mobility and Gait Start: 04/15/24 11:31 Freq: NEEDED Status: Active Protocol: Document 04/15/24 11:31 MB (Rec: 04/15/24 12:23 MB [id number]) PT-Bed Mobility Assessment Supine to Sit Supine to Sit Minimal Assistance,1 Person Assistance,Head of Bed Elevated,Bedrails Scooting Scooting to Edge of Bed Contact Guard Assistance PT-Transfer Assessment Sit to and From Stand Sit to and from Stand Contact Guard Assistance,1 Person Assistance,Use of Upper Extremities Equipment Transfer Assistive Device Front Wheeled Walker Orthotic/Prosthetic Devices or Brace: No Transfers Transfer Destination Chair Transfer Technique Stepping Transfer Ability Level of Assist Contact Guard Assistance,1 Person Assistance,Use of Upper Extremities Comments Mobility Comments Pt has a history of dizziness and so PT checks orthostatics. BP and HR in LUE: hook lying with HOB increased: 127/72, 69; sitting 96/58, 83; standing 97/54, 84. Pt is not symptomatic today. Gait Assessment Gait Gait Assistance Required: Contact Guard Assist Distance (Feet) 2 Able to Maintain Weight Bearing Status Yes During Gait Assistive Devices Assistive Device Front Wheeled Walker Orthotic/Prosthetic Devices or Brace: No Gait Deviations General Gait Pattern Decreased Stride Length,Flexed Trunk,Step-to Gait,Wide Based Gait Factors Limiting Gait Function Factors Limiting Gait Function Poor Balance,Poor Safety Awareness Comments Gait Comments PT assistance pt to chair after orthostatic check so that nsg can check pt's blood sugar up in chair, PT does not notice that left foot does not clear with stepping PT-Balance Assessment Sitting Balance and Reactions Static Sitting Balance Ability Good Dynamic Sitting Balance Ability Fair Standing Balance and Reactions Static Standing Balance Ability Fair Dynamic Standing Balance Ability Fair Device Used RW M5 PT-IP Objective Assessments Start: 04/15/24 11:31 Freq: NEEDED Status: Active Protocol: Document 04/15/24 11:31 MB (Rec: 04/15/24 12:23 MB [id number]) Orientation Orientation/Cognition Level of Alertness Alert Orientation Name,Age,Birthday,Month,Date, Year,Day of Week,Place, Situation Language Function Ability No Deficits Noted Safety Awareness Decreased Safety Awareness Memory Description No Deficits Noted Comments tends to answer most questions Gross Range of Motion Upper Extremity ROM Impairments Defer to OT Lower Extremity ROM Assessment Within Functional Limits Strength Lower Extremity Strength Assessment Within Functional Limits Comments Strength Comments PT does not note any LLE weakness compared to right today Coordination Assessment Gross Coordination Gross Coordination Impaired Assessment Heel on Calderon Test Minimal Impairment Coordination Comments Minimal impairment with sliding left heel up right calderon Sensation Assessment Sensation Gross Sensation WNL Light Touch Intact Muscle Tone Muscle Tone WNL Yes Other Assessments Other Other Assessments Ocular tracking is reduced all directions, likely d/t age, and no nystagmus or saccadic eye movement noted M6 PT-IP Treatment Start: 04/15/24 11:31 Freq: NEEDED Status: Active Protocol: Document 04/15/24 11:31 MB (Rec: 04/15/24 12:23 MB [id number]) Physical Therapy Treatment Education Education Provided Safety M7 PT-IP Assessment and Plan Start: 04/15/24 11:31 Freq: NEEDED Status: Active Protocol: Document 04/15/24 11:31 MB (Rec: 04/15/24 12:23 MB [id number]) PT Summary Assessment and Plan Potential Rehabilitation Potential Good Status of Condition at Evaluation Evolving Summary Impairments Balance,Coordination,Bed Mobility,Transfers,Gait, Activity Tolerance Progress Towards Goals Progressing Toward Goals Assessment Summary Pt is a pleasant 89 y/o male who has history of dizziness and falls. This afternoon, he has mildly reduced LLE coordination compared to the right. He is orthostatic with hook lying to sit and BP might have dropped more if pt brought straight to standing from hook lying. He denies symptoms today. Pt mobilizes with CGA. Anticipate progressing gait to tolerance and d/c back to [facility] with and therapy. 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 Goals Bed Mobility Goal Independent Transfer Goal Standby Assistance,Four Wheeled Walker Gait Goal Standby Assistance,Four Wheel Walker Gait Distance 75 Days to Meet Goals 5 Frequency of Treatment Frequency Of Treatment Once a Day Treatment Plan Physical Therapy Treatment Plan Bed Mobility Training,Transfer Training,Gait Training, Therapeutic Exercise,Balance Retraining,Discharge Planning, Hot or Cold Pack,Neuromuscular Re-ed,Coordination Retraining Weight Bearing Status Weight Bearing Status Weight Bear as Tolerated Recommendations To Nursing Amount of Assist Needed 1 Person Assist Discharge Recommendations PT Discharge Recommendations Home with Assistance Other Discharge Recommendations Whichever pt prefers: PT at [facility] with therapists there or PT. Therapists there will be able to access therapy gym for pt and this PT prefers that for pt Transportation Needs at Discharge Private Vehicle,Wheelchair/ Cabulance
--- NOTE | 2024-04-15 13:28 | DI.ECHO.S_ITS ---
[facility]+ [facility] : : [address] : : [place] : : [id number] : : Phone: [phone] Echocardiogram Report + + :Name: KENNETH PEREZ Study Date: 04/15/2024 Height: 69 in : :Hospital ReadingLocation: Weight: 160 lb : : Gender: Male BSA: 1.9 m2 : :: 1935 Age: 89 yrs BP: 127/72 mmHg: :Reason For Study: HYPOTENSION : :Ordering Physician: JEN, : :ADIEL Performed By: Madelaine Ray : :Referring: ADIEL LI : + + Interpretation Summary The left ventricle is normal in size and wall thickness. Left ventricular ejection fraction is estimated to be 45%. There has been no significant change since the previous exam. There is a moderate dyssynchronous contraction pattern due to the paced rhythm. The right ventricle is normal in size and function. The right ventricular systolic pressure is estimated to be at least 23 mmHg based on an estimated right atrial pressure of 3 mm Hg. The left atrium is borderline dilated. There is mild mitral regurgitation. There is mild aortic regurgitation. The aortic root is normal size. Procedure: A two-dimensional transthoracic echocardiogram with color flow and Doppler was performed. The study quality was technically adequate. Comparison is made with the echocardiogram of 01/18/2024. The patient has a paced rhythm. The heart rate ranged between 70-80 bpm during the study. Left Ventricle: The left ventricle is normal in size and wall thickness. Left ventricular ejection fraction is estimated to be 45%. There has been no significant change since the previous exam. There is a moderate dyssynchronous contraction pattern due to the paced rhythm. Right Ventricle: The right ventricle is normal in size and function. Atria: The left atrium is borderline dilated. Right atrial size is normal. There is a catheter/pacemaker lead seen in the right atrium. There is no Doppler evidence for an interatrial shunt. Mitral Valve: The mitral valve leaflets appear mildly thickened, but open well. There is mild mitral regurgitation. Aortic Valve: The aortic valve is mildly calcified. There is no aortic valve stenosis. There is mild aortic regurgitation. Tricuspid Valve: The tricuspid valve is normal in structure and function. There is mild tricuspid regurgitation. The right ventricular systolic pressure is estimated to be at least 23 mmHg based on an estimated right atrial pressure of 3 mm Hg. Pulmonic Valve: The pulmonic valve leaflets are thin and pliable; valve motion is normal. There is mild pulmonic regurgitation. Great Vessels: The aortic root is normal size. The dimensions of the ascending aorta are normal. The IVC is of normal diameter and collapses greater than 50% with a sniff. This suggests a low right atrial pressure of 3 mm Hg. Pericardium/ Pleura There is no pericardial effusion. There is no pleural effusion. MMode/2D Measurements & Calculations LVIDd: 4.5 cm Ao root diam: 3.0 cm LVIDs: 3.5 cm asc Aorta Diam: 3.7 cm FS: 22.5 % EPSS: 1.6 cm IVSd: 1.1 cm LVPWd: 0.89 cm LV ortega. diameter/BSA (cm/m^2): 2.4 LV sys. diameter/BSA (cm/m^2): 1.9 LA A2 area: 21.2 cm2 RA long axis: 5.4 cm LA A4 area: 21.7 cm2 RA area: 16.6 cm2 LA length (vol): 6.0 cm RA vol: 43.8 ml LA vol: 65.0 ml RA : 23.3 ml/m2 LA vol index: 34.6 ml/m2 IVC diam: 1.4 cm RVD1 (basal): 3.6 cm RVD2 (mid): 2.7 cm TAPSE: 1.8 cm Doppler Measurements & Calculations Ao V2 max: 139.7 cm/sec LVOT Max Santiago: 66.2 cm/sec Ao V2 mean: 101.9 cm/sec LV V1 max P.8 mmHg Ao max P.8 mmHg LV V1 VTI: 13.3 cm Ao mean P.6 mmHg sev ratio: 0.50 Ao V2 VTI: 26.4 cm AI P1/2t: 649.1 msec AI dec slope: 179.4 cm/sec2 MV E max santiago: 78.4 cm/sec TR max santiago: 225.4 cm/sec MV A max santiago: 60.3 cm/sec TR max P.3 mmHg MV E/A: 1.3 PA V2 max: 57.6 cm/sec Med Peak E' Santiago: 7.0 cm/sec PA V2 mean: 41.4 cm/sec E/E' med: 11.2 PA mean P.76 mmHg Lat Peak E' Santiago: 11.5 cm/sec PA pr(Accel): 48.2 mmHg E/E' lat: 6.8 E/e' average: 9.0 MV dec time: 0.18 sec Reading Physician:05:40 PM
--- NOTE | 2024-04-15 13:34 | P.HP_ITS ---
History of Present Illness History of Present Illness Date Patient Seen: 04/15/24 Time Patient Seen: 13:34 Chief complaint: Code Stroke Narrative: This is a very pleasant 89-year-old male who is well known to me. He resides at [facility] where his is his primary caregiver. He was in his usual state of health when he went down for a nap yesterday afternoon. His awakened him at about 430 to get ready for dinner and he was getting up to urinate and she was going to get his walker and when she came back he was lying back in the bed and was just staring into space and would not respond to her. He had no focal abnormalities his eyes were open she did notice some muscle twitching in his legs and then she called 911. Initially his blood sugar was 70 but when he got to the ER his blood sugar was 52. They gave him an amp of D50 and patient did not become responsive quickly as you would expect with symptomatic hypoglycemia. His blood sugar did go up to 200 he started improving. He had somewhat slurred speech and really just would not speak to the ER doctor. There was maybe a facial droop but the by the time he left the ER his stroke scale was 0 and patient was improved. He was admitted for possible TIA. They discussed with on-call Neurology and given his previous history of stroke and AFib flutter and coronary artery disease with a stent in 2020 they did not recommend changing his therapy other than increasing his aspirin therapy to a possible full aspirin. Patient has been on a baby aspirin and Brilinta. He has previously had some problems with blood thinners with complications of bleeding Patient is alert and oriented to person and place. He denies any symptoms of chest pain or shortness of breath or lightheadedness. He does have periodic dizziness. He denies any fever or URI symptoms. No change in urine or bladder function. There has been no change in his medications. He has otherwise been in his usual state of health. He did have a fall last month for which he went to the ER. He was last seen in the clinic I believe in February Past medical history: 1. CVA/TIA in 2019. Patient has had orthostatic hypotension since that time. 2. AFib flutter. He had a pacemaker placed 07/07/2013 3. NSTEMI in 09/23/2020. He underwent PCI of his LAD with a drug-eluting stent. 4. CVA in 5. Diabetes on oral medications fairly well-controlled 6. Hyponatremia 7. Chronic kidney disease, stage III 8. Obstructive sleep apnea 9. CAD 10. Anxiety 11. Depression 12. GERD Past surgical history 1. Appendectomy 2. Back surgery in September of 1996 3. Cardiac catheterization 4. Cardiac catheterization October of 2018 5. Cardiac pacemaker placement 03/30 6. Cardiac surgery had LA et occluded at [facility] 7. Lumbar fusion 8. EGD Health related behavior patient does not smoke and does not drink alcohol and is fairly inactive Social history: Patient is and his is very attentive and they live together in assisted care. Family history: Mom had Alzheimer's Dad had tuberculosis at age 40 Allergies: Muscular pain with statins Piroxicam GI intolerance Please see med list 12 point review of systems is otherwise negative other than above PFSH Medical History Nocturia Nocturia Thyroid disease Heart attack Arthritis Presence of Watchman left atrial appendage closure device (~01/07/19) Spinal stenosis of lumbar region Psychosexual dysfunction History of fatigue History of hematuria Paroxysmal A-fib Sick sinus syndrome RBBB History of CVA (cerebrovascular accident) History of dizziness Lumbosacral radiculopathy at L5 Elevated serum homocysteine level Neuropathy of both feet Memory deficit Depression Anxiety Sleep apnea (~2012) Dysuria Urinary retention Renal insufficiency Impotence History of angina Dyslipidemia CAD (coronary artery disease) Pacemaker (~2013) Diabetes Osteoarthritis TIA (transient ischemic attack) History of esophageal reflux Spinal stenosis in cervical region DDD (degenerative disc disease), cervical Surgical History History of fusion of cervical spine S/P drug eluting coronary stent placement History of cardiac cath (~2012) History of cholecystectomy (~2012) History of tonsillectomy History of cystoscopy History of vasectomy History of appendectomy H/O shoulder surgery Status post right foot surgery H/O thumb surgery H/O laminectomy History of bladder surgery History of lumbar fusion Social History marital status: details: to Siri, lives in [place] household members: spouse lives independently: Yes caregiver/support person: No housing: house Smoking Status: Never smoker alcohol intake: current substance use type: does not use Meds Home Medications and Allergies Home Medications Medication Instructions Recorded Confirmed Type magnesium oxide 400 mg (241.3 mg 400 mg PO BID #180 tabs 10/08/20 04/14/24 Rx magnesium) tablet glipizide 2.5 mg tablet, extended 2.5 mg PO DAILY 01/14/21 04/14/24 History release 24 hr ticagrelor 90 mg tablet (Brilinta) 90 mg PO BID 10/23/21 04/14/24 History amiodarone 200 mg tablet 200 mg PO DAILY 04/27/23 04/14/24 History aspirin 81 mg tablet 81 mg PO DAILY 04/27/23 04/14/24 History atorvastatin 20 mg tablet 20 mg PO DAILY 04/27/23 04/14/24 History duloxetine 20 mg capsule,delayed 20 mg PO DAILY 04/27/23 04/15/24 History release esomeprazole magnesium 40 mg 40 mg PO BID 04/27/23 04/14/24 History capsule,delayed release metformin 500 mg tablet 500 mg PO DAILY 04/27/23 04/14/24 History nitroglycerin 0.4 mg sublingual 0.4 mg sublingual Q5-15M PRN chest 04/27/23 04/14/24 History tablet pain ondansetron 4 mg disintegrating 4 mg PO Q8H PRN nausea 04/27/23 04/14/24 History tablet acetaminophen 500 mg tablet 500 mg PO DAILY 04/15/24 04/15/24 History furosemide 20 mg tablet 20 mg PO DAILY 04/15/24 04/15/24 History levothyroxine 88 mcg tablet 88 mcg PO DAILY@0600 04/15/24 04/15/24 History Allergies Allergy/AdvReac Type Severity Reaction Status Date / Time [id number] Reductase Allergy Intermediate MUSCLE PAIN Verified 11/15/22 11:18 Inhibitor [[id number]-[id number]-TLA REDUCTASE INHIBITOR] piroxicam [PIROXICAM] Allergy Mild NAUSEA, Verified 11/15/22 11:18 VOMITING dabigatran etexilate AdvReac Hematuria Verified 11/15/22 11:18 Exam Vital Signs (past 8 hours): - 04/15/24 07:47 04/15/24 12:00 Temperature 97.2 F L 97.2 F L Pulse Rate 58 L 67 Respiratory Rate 16 20 Blood Pressure 134/83 127/72 Pulse Oximetry 97 97 Oxygen Flow Rate 0 0 Oxygen Delivery Method Room Air Oxygen Flow Rate 0 Narrative Exam Narrative: Patient appears stated age of 89 he is resting comfortably in the hospital chair in no apparent distress vital signs are stable except for blood pressure did go down to the 95 over 60s with standing up. Afebrile vital signs are stable HEENT is unremarkable, mucous membranes moist and pink Neck is supple without adenopathy or thyromegaly no bruits Chest: Clear to auscultation without wheezes rhonchi or crackles Cor: Regular rate and rhythm with distant S1-S2 Abdomen: Positive bowel sounds, soft, nontender, nondistended Extremities show no edema pulses intact Cranial nerves 2-12 are intact. Bilateral upper and lower extremities are intact to light touch and strength is symmetric 5/5 in all large muscle groups bilateral upper and lower extremity. There is no dysmetria with [id number] or [id number] bilaterally Skin no rashes Objective Labs 04/15/24 05:16 04/15/24 05:16 Labs: Laboratory Results - last 24 hr 04/14/24 04/14/24 04/14/24 17:20 17:33 18:03 WBC 6.8 RBC 4.24 L Hgb 13.8 Hct 40.8 L MCV 96.2 MCH 32.4 MCHC 33.7 RDW 14.7 Plt Count 265 Neut % (Auto) 60.7 Lymph % (Auto) 24.3 L [place] % (Auto) 13.3 Eos % (Auto) 1.1 L Baso % (Auto) 0.6 Neut # (Auto) 4100 Lymph # (Auto) 1600 [place] # (Auto) 900 Eos # (Auto) 100 Baso # (Auto) 0 PT 12.0 INR 1.0 APTT 34 Sodium 134 L Potassium 4.2 Chloride 100 Carbon Dioxide 25 BUN 25 H Creatinine 1.65 H Estimated GFR 39 L BUN/Creatinine Ratio 15.2 Glucose 58 L Calcium 9.1 Total Bilirubin 0.7 AST 57 ALT 51 H Alkaline Phosphatase 74 Total Creatine Kinase 29 L Troponin I < 0.012 Total Protein 7.0 Albumin 4.1 Globulin 2.9 Albumin/Globulin Ratio 1.4 Urine Color Urine Appearance Urine pH Ur Specific [place] Urine Protein Urine Glucose (UA) Urine Ketones Urine Occult Blood Urine Nitrate Urine Bilirubin Urine Urobilinogen Ur Leukocyte Esterase Urine RBC Urine WBC Ur Squamous Epith Cells Urine Bacteria Ur Culture Indicated? Vol Urine Centrifuged U Opiates 300ng/mL cut Ur Oxycodone Screen Urine Methadone Screen Ur Barbiturates Screen U Tricyclic Antidepress Ur Phencyclidine Scrn Ur Amphetamines Screen U Methamphetamines Scrn Ur MDMA Scrn (Ecstasy) U Benzodiazepines Scrn Urine Cocaine Screen U Marijuana (THC) Screen Urine Specific [place] Ethyl Alcohol < 10 Ur Creatinine Chlamy pneumoniae PCR Not detected Adenovirus (PCR) Not detected B.parapertussis DNA PCR Not detected Coronavirus OC43 (PCR) Not detected Coronavirus HKU1 (PCR) Not detected Coronavirus 229E (PCR) Not detected SARS-CoV-2 (PCR) Negative Not detected Coronavirus NL63 (PCR) Not detected Human Metapneumovir PCR Not detected Influenza Type A (PCR) Not detected Influenza Type B (PCR) Not detected M. pneumoniae (PCR) Not detected Parainfluenza 1 (PCR) Not detected Parainfluenza 2 (PCR) Not detected Parainfluenza 3 (PCR) Not detected Parainfluenza 4 (PCR) Not detected RSV (PCR) Not detected Entero/Rhino (PCR) Not detected 04/14/24 04/14/24 04/15/24 19:23 19:23 05:16 WBC 5.9 RBC 4.02 L Hgb 13.2 L Hct 38.5 L MCV 95.8 MCH 32.7 MCHC 34.2 RDW 14.7 Plt Count 241 Neut % (Auto) 60.9 Lymph % (Auto) 25.8 [place] % (Auto) 10.8 Eos % (Auto) 1.7 L Baso % (Auto) 0.8 Neut # (Auto) 3600 Lymph # (Auto) 1500 [place] # (Auto) 600 Eos # (Auto) 100 Baso # (Auto) 0 PT INR APTT Sodium 131 L Potassium 4.3 Chloride 99 Carbon Dioxide 24 BUN 22 H Creatinine 1.41 H Estimated GFR 48 L BUN/Creatinine Ratio 15.6 Glucose 135 H Calcium 8.8 Total Bilirubin 0.8 AST 50 ALT 46 Alkaline Phosphatase 80 Total Creatine Kinase Troponin I Total Protein 6.4 Albumin 3.7 Globulin 2.7 Albumin/Globulin Ratio 1.4 Urine Color Yellow Urine Appearance Clear Urine pH 6.0 Normal Ur Specific [place] <=1.005 Urine Protein Negative Urine Glucose (UA) 1+ H Urine Ketones Negative Urine Occult Blood Trace-intact Urine Nitrate Negative Urine Bilirubin Negative Urine Urobilinogen 0.2 Ur Leukocyte Esterase Negative Urine RBC 1-5/hpf Urine WBC None seen Ur Squamous Epith Cells None seen Urine Bacteria None seen Ur Culture Indicated? Cult not indicated Vol Urine Centrifuged 10ml (spun) U Opiates 300ng/mL cut Negative Ur Oxycodone Screen Negative Urine Methadone Screen Negative Ur Barbiturates Screen Negative U Tricyclic Antidepress Negative Ur Phencyclidine Scrn Negative Ur Amphetamines Screen Negative U Methamphetamines Scrn Negative Ur MDMA Scrn (Ecstasy) Negative U Benzodiazepines Scrn Negative Urine Cocaine Screen Negative U Marijuana (THC) Screen Negative Urine Specific [place] Normal Ethyl Alcohol Ur Creatinine Normal Chlamy pneumoniae PCR Adenovirus (PCR) B.parapertussis DNA PCR Coronavirus OC43 (PCR) Coronavirus HKU1 (PCR) Coronavirus 229E (PCR) SARS-CoV-2 (PCR) Coronavirus NL63 (PCR) Human Metapneumovir PCR Influenza Type A (PCR) Influenza Type B (PCR) M. pneumoniae (PCR) Parainfluenza 1 (PCR) Parainfluenza 2 (PCR) Parainfluenza 3 (PCR) Parainfluenza 4 (PCR) RSV (PCR) Entero/Rhino (PCR) Assessment & Plan Assessment & Plan narrative: 89-year-old male admitted for possible TIA with hypoglycemia Assessment 1. TIA. Patient with previous history of CVA and coronary artery disease and peripheral vascular disease on statin therapy and anticoagulation. Reviewed workup which included a noncontrast head CT which was normal and a CT angio of his head and neck which were unremarkable. He has been on telemetry and does have a history of AFib flutter. PT and OT were consulted. Will continue with treatment. Pending how he is doing will likely go home tomorrow. Would consider home health. Will increase aspirin to 2 baby aspirin a day. did not want to increase to a full aspirin due to concerns for bleeding as was patient concerned. They understand risks benefits etc.. We will complete the workup and do an echo which she has not had for a year. Will continue telemetry and PT OT Assessment 2. Orthostatic hypotension. Patient is not on any antihypertensives. We will repeat echo. Assessment 3. AFib a flutter with pacemaker scheduled for ablation April 30. Plan will discuss with Dr. Cobos from Cardiology on potentially postpone this. Continue with Brilinta, amiodarone, atorvastatin Assessment 4. hypoglycemia suspect this was probably reactive to the probable TIA. There was no change in his medications. We held his metformin and glipizide and sugars have stabilized. We will restart and monitor closely consider stopping the glipizide. Depends what his blood sugars look like. Has had no further low blood sugars. Patient's response to the treatment for the hypoglycemia was very slow which makes it more likely this was a TIA versus hypoglycemia. There is no evidence of infection or other etiologies for hypoglycemia. Assessment 5. Hyperlipidemia Plan: Continue on an outpatient statin Assessment 6. History of coronary artery disease no clear symptoms Plan: Continue with statin. Continue with Brilinta Assessment 7. GERD Plan: Continue outpatient PPI twice daily 40 mg Assessment 8. Anxiety with mild depression Plan: Stable continue with duloxetine Assessment 9. History of intermittent nausea for which he takes ondansetron Plan: Will continue the same Assessment 10. Hypomagnesemia Plan will check magnesium in the morning Assessment 11. Hypothyroidism Plan: Will continue with same outpatient treatment 78 minutes spent with patient reviewing clinic chart, discussing with ER physician, discussing with nursing, meeting with patient and his formulating a plan and documentation Code status is DNR Time-Based Coding :: [TOTAL MINUTES] spent with patient and on the chart (including review of chart, obtaining history, exam, reviewing outside data, placing orders, documenting exam and treatment plan, and counseling patient) on [DATE].
--- NOTE | 2024-04-15 14:21 | CM.DANOTE ---
Patient is an 89 yo male who was admitted INPT Status on 04/14/24 for CVA vs TIA. Pt has [facility] and [facility] for insurance and his PCP is Dr. Diane Howard. EMR was reviewed. Per MD, per imaging and labs pt likely had TIA vs hypoglycemia and not yet medically stable to discharge but to work with PT and then likely discharge tomorrow if stable. Per PT, pt seems close to baseline and recommending return to [facility] with their outpt PT/OT. SW met bedside with pt and Siri and explained role. Patient confirms that they both live at [facility]. She is independent, but he uses assistance for bathing, transfers using WC and transfer chairs that they have borrowed from [employer]. states they plan to live in [place] and stay at [facility] until the end of life or ?when we can no longer afford it; we just got a rent increase?. Pt has been utilizing their in-house outpt PT/OT and feel pt has benefited from this and using a FWW and they would like to continue using this. Pt confirms that he is agreeable with this and preference and hope is to discharge back to [facility] at discharge. Pt confirms that spouse is his POA and scanned into chart and POLST scanned and signed but not marked. SW faxed clinicals to [facility] for review and called and left msg with update on likely d/c back tomorrow if stable. Plan: SW to follow for plan of discharge back to [facility] Assisted with spouse either via spouse POV or facility van and will need to fax d/c summ and signed med list. JUDE Burdick Discharge Planning/Care Management CM Discharge Assessment Start: 04/15/24 14:18 Freq: Status: Active Protocol: Document 04/15/24 14:19 BF (Rec: 04/15/24 14:21 BF [id number]) Discharge Planning Assessment Assigned Shop Fitter JUDE Pabon DPOA/Assigned Designee Name Spouse Siri Contact Information [phone] Advance Directives? Yes: POLST Advance Directives on File No History Provided By Patient,Significant Other, Medical Record Has Patient been admitted in last 30 No days? Comment Last admit in Apr 2023 last year and discharged back to [facility] Prior Living Arrangements Assisted Living Household Members spouse Type of transporation used prior to Relies on Others admit Independent with ADL's Yes: mostly Is patient alert and oriented? No: mild dementia Needs Assistance With Meal Prep,Managing Medications ,Home Chores / Shopping Caregiver for Another No Community Services used prior to Physical Therapy,Occupational admission: Therapy Comment PT/OT at [facility] outpt group DME Already Rented / Owned FWW / Walker Patient/Family Preference OP PT Therapy,OP OT Therapy Barriers to Discharge No Discharge Plan Home Community Services Physical Therapy,Occupational Therapy Transportation Arrangement Spouse or facility van Additional Comment outpt PT/OT at [facility] Whiteboard Updated in Patient Room with Yes name and ext. # of Shop Fitter Review Status In Process Please Provide Date Initial DC 04/15/24 Assessment Was Performed Next Review Type Continued Stay Review
[2024-04-15 16:00] VITALS: BP 148/91; PULSE 77; RESP 16; TEMP 36.5; O2SAT 96
[2024-04-15 20:00] VITALS: BP 125/74; PULSE 74; RESP 18; TEMP 36.6; O2SAT 96
[2024-04-15] MEDS: ATORVASTATIN 20 MG TABLET PO (20:58)
[2024-04-15] MEDS: MAGNESIUM OXIDE 400 MG TABLET PO (20:58)
[2024-04-16] VITALS: BP 140/76; PULSE 79; RESP 18; TEMP 36.2; O2SAT 98
[2024-04-16 05:19] VITALS: BP 126/86; PULSE 82; RESP 18; TEMP 36.7; O2SAT 96
[2024-04-16 05:33] LABS: Add Manual Diff / Slide Review NO; Basophils Absolute Auto 100 /uL (0-100); Basophils Percent Auto 1.2 % (0-2); Eosinophils Absolute Auto 100 /uL (0-450); Eosinophils Percent Auto 1.7 % (2-4); Hematocrit 39.1 % (41-53); Hemoglobin 13.2 g/dL (13.5-17.5); Lymphocytes Absolute Auto 1500 /uL (1100-4500); Lymphocytes Percent Auto 27.3 % (25-40); Mean Corpuscular HGB Conc 33.8 % (30-36); Mean Corpuscular Hemoglobin 32.6 PG (26-34); Mean Corpuscular Volume 96.4 fL (80-100); Monocytes Absolute Auto 600 /uL (0-900); Monocytes Percent Auto 11.5 % (3-14); Neutrophils Absolute Auto 3200 /uL (1500-7000); Neutrophils Percent Auto 58.3 % (50-75); Platelet Count 228 X10^3/uL (150-400); Red Blood Cell Count 4.05 X10^6/uL (4.5-5.9); Red Cell Distribution Width 14.7 % (11.6-14.8); White Blood Cell Count 5.5 X10^3/uL (4.5-11.0)
[2024-04-16] MEDS: LEVOTHYROXINE 88 MCG TABLET PO (05:44)
[2024-04-16 05:48] LABS: BUN Creatinine Ratio 12.6 (6-22); Blood Urea Nitrogen 17 mg/dL (9-20); Calcium 8.7 mg/dL (8.4-10.2); Carbon Dioxide 22 mmol/L (22-32); Chloride 102 mmol/L (98-107); Estimated Glomerular Filt Rate 50 mL/min (>60); Glucose 159 mg/dL (80-110); HEMOLYSIS < 15 (0-50); Magnesium 2.1 mg/dL (1.6-2.3); Potassium 4.4 mmol/L (3.4-5.1); Sodium 130 mmol/L (137-145)
[2024-04-16 05:57] LABS: NT-proBNP (BNP-Adult 18+) 553 pg/mL (<450)
--- NOTE | 2024-04-16 08:28 | P.DS_ITS ---
History of Present Illness History of Present Illness Date Patient Seen: 04/16/24 Time Patient Seen: 08:28 Chief complaint: Code Stroke Narrative: This is a very pleasant 89-year-old male who is well known to me. He resides at [facility] where his is his primary caregiver. He was in his usual state of health when he went down for a nap yesterday afternoon. His awakened him at about 430 to get ready for dinner and he was getting up to urinate and she was going to get his walker and when she came back he was lying back in the bed and was just staring into space and would not respond to her. He had no focal abnormalities his eyes were open she did notice some muscle twitching in his legs and then she called 911. Initially his blood sugar was 70 but when he got to the ER his blood sugar was 52. They gave him an amp of D50 and patient did not become responsive quickly as you would expect with symptomatic hypoglycemia. His blood sugar did go up to 200 he started improving. He had somewhat slurred speech and really just would not speak to the ER doctor. There was maybe a facial droop but the by the time he left the ER his stroke scale was 0 and patient was improved. He was admitted for possible TIA. They discussed with on-call Neurology and given his previous history of stroke and AFib flutter and coronary artery disease with a stent in 2020 they did not recommend changing his therapy other than increasing his aspirin therapy to a possible full aspirin. Patient has been on a baby aspirin and Brilinta. He has previously had some problems with blood thinners with complications of bleeding Patient is alert and oriented to person and place. He denies any symptoms of chest pain or shortness of breath or lightheadedness. He does have periodic dizziness. He denies any fever or URI symptoms. No change in urine or bladder function. There has been no change in his medications. He has otherwise been in his usual state of health. He did have a fall last month for which he went to the ER. He was last seen in the clinic I believe in February Past medical history: 1. CVA/TIA in 2019. Patient has had orthostatic hypotension since that time. 2. AFib flutter. He had a pacemaker placed 07/07/2013 3. NSTEMI in 09/23/2020. He underwent PCI of his LAD with a drug-eluting stent. 4. CVA in 3 5. Diabetes on oral medications fairly well-controlled 6. Hyponatremia 7. Chronic kidney disease, stage III 8. Obstructive sleep apnea 9. CAD 10. Anxiety 11. Depression 12. GERD Past surgical history 1. Appendectomy 2. Back surgery in September of 1996 3. Cardiac catheterization 4. Cardiac catheterization October of 2018 5. Cardiac pacemaker placement 03/30 6. Cardiac surgery had LA et occluded at [facility] 7. Lumbar fusion 8. EGD Health related behavior patient does not smoke and does not drink alcohol and is fairly inactive Social history: Patient is and his is very attentive and they live together in assisted care. Family history: Mom had Alzheimer's Dad had tuberculosis at age 40 Allergies: Muscular pain with statins Piroxicam GI intolerance Please see med list 12 point review of systems is otherwise negative other than above Discharge Providers Provider Date of admission: 04/14/24 19:14 Discharge Date: 04/16/24 Primary care physician: Diane Howard MD Consults: 04/14/24 20:40 Consult to Discharge Planning Routine Comment: 04/14/24 20:41 Consult to Occupational Therapy Evaluate & Treat Comment: Physician Instructions: Evaluate and treat Consult to Physical Therapy Evaluate & Treat Comment: Physician Instructions: Evaluate and Treat Discharge provider: Diane Howard MD Summary Hospital Course Discharge Diagnosis: 1. Possible TIA 2. Hypoglycemia 3. Type 2 diabetes 4. Hypothyroidism 5. AFib/a flutter 6. Chronic anticoagulation Hospital Course: Patient admitted to the hospital with possible TIA. Patient was found to be hypoglycemic on presentation to the ER. Patient presented did via EMS and ambulance. Patient did not respond quickly to treatment of hypoglycemia. Not contrasted head CT and CT angio of the head and neck were negative. Patient's symptoms of difficulty speaking and slurred speech gradually improved and he was back to his baseline or approaching that when he was admitted. He initially had some fluctuation in his blood sugars. There was no evidence of infection. His diabetic meds were held on hospital day 1. And started on hospital day 2. Patient remained stable. He worked with PT and OT and was essentially a 1 person assist. No further neurologic problems were noted and patient was back to his baseline are actually improved at the time of discharge. Echo was done prior to discharge and showed no significant change. Patient with ejection fraction 45% which is unchanged and dyssynchronous cardiac rhythm due to pacemaker. Status at Discharge Cognitive/behavioral status at discharge: oriented Functional status at discharge: uses cane/walker Overall status at discharge: patient is back to baseline Exam Vital Signs (past 8 hours): - 04/16/24 05:19 Temperature 98.0 F Pulse Rate 82 Respiratory Rate 18 Blood Pressure 126/86 Pulse Oximetry 96 Oxygen Flow Rate 0 Oxygen Delivery Method Room Air Oxygen Flow Rate 0 Narrative Exam Narrative: Patient is alert and oriented x3. He is lying in the hospital bed in no apparent distress. He is much more engaged in interactive and insistent on going home HEENT unremarkable Chest: Clear to auscultation without wheezes rhonchi or crackles Cor: Distant S1-S2 with well-controlled rate Abdomen: Positive bowel sounds, soft, nontender, nondistended Extremities: No edema, pulses intact Neurologic exam no focal abnormalities Objective Labs 04/16/24 05:13 04/16/24 05:13 Labs: Laboratory Results - last 24 hr 04/16/24 05:13 WBC 5.5 RBC 4.05 L Hgb 13.2 L Hct 39.1 L MCV 96.4 MCH 32.6 MCHC 33.8 RDW 14.7 Plt Count 228 Neut % (Auto) 58.3 Lymph % (Auto) 27.3 [place] % (Auto) 11.5 Eos % (Auto) 1.7 L Baso % (Auto) 1.2 Neut # (Auto) 3200 Lymph # (Auto) 1500 [place] # (Auto) 600 Eos # (Auto) 100 Baso # (Auto) 100 Sodium 130 L Potassium 4.4 Chloride 102 Carbon Dioxide 22 BUN 17 Creatinine 1.35 H Estimated GFR 50 L BUN/Creatinine Ratio 12.6 Glucose 159 H Calcium 8.7 Magnesium 2.1 NT-Pro-B Natriuret Pep 553 [facility] History Nocturia Nocturia Thyroid disease Heart attack Arthritis Presence of Watchman left atrial appendage closure device (~01/07/19) Spinal stenosis of lumbar region Psychosexual dysfunction History of fatigue History of hematuria Paroxysmal A-fib Sick sinus syndrome RBBB History of CVA (cerebrovascular accident) History of dizziness Lumbosacral radiculopathy at L5 Elevated serum homocysteine level Neuropathy of both feet Memory deficit Depression Anxiety Sleep apnea (~2012) Dysuria Urinary retention Renal insufficiency Impotence History of angina Dyslipidemia CAD (coronary artery disease) Pacemaker (~2013) Diabetes Osteoarthritis TIA (transient ischemic attack) History of esophageal reflux Spinal stenosis in cervical region DDD (degenerative disc disease), cervical Surgical History History of fusion of cervical spine S/P drug eluting coronary stent placement History of cardiac cath (~2012) History of cholecystectomy (~2012) History of tonsillectomy History of cystoscopy History of vasectomy History of appendectomy H/O shoulder surgery Status post right foot surgery H/O thumb surgery H/O laminectomy History of bladder surgery History of lumbar fusion Social History marital status: details: aisha Horner, lives in [place] household members: spouse lives independently: Yes caregiver/support person: No housing: house Smoking Status: Never smoker alcohol intake: current substance use type: does not use Discharge Assessment & Plan Assessment and Plan Assessment: Possible TIA symptoms resolved Hypoglycemia AFib flutter Pacemaker Type 2 diabetes GERD Chronic anticoagulation Hypomagnesemia Plan of Treatment: Patient will be discharged home in stable condition. They did not feel they needed home health. He is back to his baseline with no neurologic residual. Will discharge home on all his same medications but continue on 2 baby aspirin daily. He will follow up with me in 2 weeks or sooner with concerns. Continue same Brilinta, statin and outpatient treatment for his thyroid and diabetes and reflux. 38 minutes spent in discharge care Discharge Plan Discharge Plan Patient Disposition: Home Discharge orders & Medications Prescriptions: Continued glipizide 2.5 mg Tablet Extended Release 24hr 2.5 mg PO DAILY metformin 500 mg tablet 500 mg PO DAILY atorvastatin 20 mg tablet 20 mg PO DAILY amiodarone 200 mg tablet 200 mg PO DAILY esomeprazole magnesium 40 mg capsule,delayed release(/EC) 40 mg PO BID nitroglycerin 0.4 mg Tablet, Sublingual 0.4 mg SUBLINGUAL Q5-15M PRN (Reason: chest pain) Rx Instructions: do not exceed 3 doses per episode aspirin 81 mg Tablet 81 mg PO DAILY ondansetron 4 mg tablet,disintegrating 4 mg PO Q8H PRN (Reason: nausea ) duloxetine 20 mg capsule,delayed release(DR/EC) 20 mg PO DAILY furosemide 20 mg tablet 20 mg PO DAILY acetaminophen 500 mg Tablet 500 mg PO DAILY levothyroxine 88 mcg tablet 88 mcg PO DAILY@0600 magnesium oxide 400 mg (241.3 mg magnesium) Tablet 400 mg PO BID Qty: 180 3RF Brilinta 90 mg tablet 90 mg PO BID Follow up/Referrals: Diane Howard MD [Primary Care Provider] - Discharge Health Status Multidrug resistant organism: No MDRO Precautions: [place] Diet/Activity/Treatments Diet: Carb-consistent/Diabetic Liquid consistency: Normal/Thin Food texture: Regular Visit Report/Discharge Packet Stand Alone Forms: Patient Portal/API, Stroke Signs & Symptoms Discharge Data Primary Care Provider: Diane Howard
[2024-04-16] MEDS: PANTOPRAZOLE DR 40 MG TABLET PO (09:07)
[2024-04-16] MEDS: MAGNESIUM OXIDE 400 MG TABLET PO (09:07)
[2024-04-16] MEDS: DOCUSATE 100 MG CAPSULE PO (09:07)
[2024-04-16] MEDS: METFORMIN HCL 500 MG TABLET PO (09:07)
[2024-04-16] MEDS: DULOXETINE 30 MG CAPSULE PO (09:08)
[2024-04-16] MEDS: ACETAMINOPHEN 325 MG TABLET 650 MG PO (09:08)
[2024-04-16] MEDS: AMIODARONE 200 MG TABLET PO (09:08)
[2024-04-16] MEDS: INSULIN LISPRO 100 UNIT/ML 3ML VIAL SUBCUT (09:14)
--- NOTE | 2024-04-16 10:40 | CM.DPC ---
DCP Discharge to [facility] Per MD, pt back to baseline and medically stable to discharge today back to [facility] today and no new meds. Per RN, pt and spouse remain agreeable to discharge and very pleasant and spouse to provide transport around 1330. SW faxed discharge summary and signed med list to Emilia at [facility] and left msg regarding discharge for today and pt back to baseline per MD and PT and to review faxed discharge info. Plan: Patient to discharge back to [facility] today via spouse POV and continue outpt PT/OT at [facility]. No further SW needs at this time. JUDE Burdick
--- NOTE | 2024-04-16 10:58 | PC.NURSE ---
Pt is dressed and ready for discharge home with Spouse. IV's have been removed. Went over d/c instructions wiht Pt and Spouse-discussed d/c meds, time of last dose, reviewed stroke education, reviewed CHF guidelines sheet and encouraged Pt to hang the CHF sheet on the fridge. Reminded Pt or Spouse to call to set up follow up appointment with Dr. Howard in 2 weeks. Pt and Spouse denied further questions and Pt was taken out via w/c by [employer] to pov with Spouse and all belongings.
== END 2024-04-16 11:14 | disposition home or self-care (01) | DRG 69 ==
LOC: ED 19:12 → AC 19:15
PROVIDERS: Admitting Provider Family Medicine; Emergency Provider Emergency Medicine; PCP Family Medicine; Referring Provider Emergency Medicine; Visit Provider Family Medicine
DX: G45.9 Transient cerebral ischemic attack, unspecified (principal); I48.92 Unspecified atrial flutter; I25.10 Atherosclerotic heart disease of native coronary artery without angina pectoris; I73.9 Peripheral vascular disease, unspecified; I95.1 Orthostatic hypotension; I48.91 Unspecified atrial fibrillation; E11.649 Type 2 diabetes mellitus with hypoglycemia without coma; E78.5 Hyperlipidemia, unspecified; K21.9 Gastro-esophageal reflux disease without esophagitis; F41.9 Anxiety disorder, unspecified; F32.A Depression, unspecified; R11.0 Nausea; E83.42 Hypomagnesemia; E03.9 Hypothyroidism, unspecified; R47.81 Slurred speech; Z79.01 Long term (current) use of anticoagulants; Z95.0 Presence of cardiac pacemaker; Z79.84 Long term (current) use of oral hypoglycemic drugs; Z86.73 Personal history of transient ischemic attack (TIA), and cerebral infarction without residual deficits
CPT/HCPCS: 36415; 70450; 70496; 70498; 80048; 80053; 80305; 80320; 81001; 82550; 82962; 83735; 83880; 84484; 85025; 85610; 85730; 87633; 87635; 93005; 93306; 96374; 97162; 97166; 99285; J1815; Q9967

== ENCOUNTER → 2024-07-03 13:03 | Outpatient (CLI) | payer MEDICARE, OTHER, SELFPAY ==
[2024-04-25 15:44] VITALS: BMI 23.6
[2024-07-03 13:22] LABS: Add Manual Diff / Slide Review NO; Basophils Absolute Auto 100 /uL (0-100); Basophils Percent Auto 0.9 % (0-2); Eosinophils Absolute Auto 100 /uL (0-450); Eosinophils Percent Auto 1.7 % (2-4); Hematocrit 41.4 % (41-53); Hemoglobin 13.9 g/dL (13.5-17.5); Lymphocytes Absolute Auto 1300 /uL (1100-4500); Lymphocytes Percent Auto 21.1 % (25-40); Mean Corpuscular HGB Conc 33.6 % (30-36); Mean Corpuscular Hemoglobin 32.4 PG (26-34); Mean Corpuscular Volume 96.5 fL (80-100); Monocytes Absolute Auto 700 /uL (0-900); Monocytes Percent Auto 11.5 % (3-14); Neutrophils Absolute Auto 3900 /uL (1500-7000); Neutrophils Percent Auto 64.8 % (50-75); Platelet Count 261 X10^3/uL (150-400); Red Cell Distribution Width 14.8 % (11.6-14.8)
[2024-07-03 13:41] LABS: BUN Creatinine Ratio 11.4 (6-22); Blood Urea Nitrogen 19 mg/dL (9-20); Calcium 9.3 mg/dL (8.4-10.2); Carbon Dioxide 24 mmol/L (22-32); Chloride 99 mmol/L (98-107); Estimated Glomerular Filt Rate 39 mL/min (>60); Glucose 153 mg/dL (80-110); HEMOLYSIS < 15 (0-50); Potassium 4.7 mmol/L (3.4-5.1); Sodium 133 mmol/L (137-145)
== END ==
PROVIDERS: PCP Family Medicine; Referring Provider Internal Medicine Cardiovascular Disease; Visit Provider Internal Medicine Cardiovascular Disease
DX: I48.3 Typical atrial flutter (principal)
CPT/HCPCS: 36415; 80048; 85025

== ENCOUNTER 2024-09-02 04:54 | Emergency (ER) | payer MEDICARE, OTHER, SELFPAY ==
[2024-04-25 15:44] VITALS: BMI 23.6
[2024-09-02] VITALS (13 sets, daily range): BP systolic 104–160; BP diastolic 57–81; PULSE 67–98; RESP 12–23; TEMP 36.5; O2SAT 95–99; BMI 25.0
--- NOTE | 2024-09-02 04:54 | DI.CT.S_ITS ---
PROCEDURE: CT HEAD/BRAIN WO CON INDICATIONS: fall on thinners TECHNIQUE: Noncontrast 4.5 mm thick angled axial sections acquired from the foramen magnum to the vertex, with coronal and sagittal reformats. For radiation dose reduction, the following was used: automated exposure control, adjustment of mA and/or kV according to patient size. COMPARISON: [facility], CT, CT HEAD/BRAIN WO CON, 04/25/2024, 10:56. FINDINGS: Image quality: Diagnostic. CSF spaces: Basal cisterns are patent. No extra-axial fluid collections. The ventricles are symmetric in size and shape. Brain: No intracranial bleeds or masses. There is cerebral volume loss for age, with resultant ventricular and sulcal prominence. There are periventricular and deep white matter chronic small vessel ischemic changes. Again noted are chronic right caudate head and left putamen/land radiata lacunar infarcts as well as an old right centrum semiovale lacunar infarct. There is intracranial internal carotid artery atherosclerosis. Skull and face: Left frontal scalp laceration and scalp hematoma. Calvarium and visualized facial bones appear intact, without suspicious lesions. Sinuses: Visualized sinuses and mastoids are clear. IMPRESSION: Left frontal scalp laceration and scalp hematoma. No acute intracranial pathology. Age-related volume loss and small vessel ischemic change. Old lacunar infarcts. Comment: Final report is concordant with preliminary interpretation provided by [facility]. Dictated by: Ru Cheatham M.D. on 09/02/2024 at 6:53 Approved by: Ru Cheatham M.D. on 09/02/2024 at 6:55
--- NOTE | 2024-09-02 04:54 | DI.CT.S_ITS ---
PROCEDURE: CT CERVICAL SPINE WO CON INDICATIONS: fall on thinners TECHNIQUE: Noncontrast 3 mm thick sections acquired from the skull base to the T4 level. Sagittal and coronal reformats were then constructed. For radiation dose reduction, the following was used: automated exposure control, adjustment of mA and/or kV according to patient size. COMPARISON: [facility], CT, CT CERVICAL SPINE WO CON, 04/25/2024, 10:56. FINDINGS: Image quality: Excellent. Bones: No cervical fractures or dislocations. Visualized superior ribs are intact. Remote ACDF and interbody fusion C5 through C7. No evidence of hardware failure or loosening. Fusion is mature. Diffuse osteopenia. Acute T3 compression fracture. Soft tissues: Prevertebral soft tissues are normal in thickness. No paravertebral hematomas. No apical pneumothoraces. IMPRESSION: Acute T3 compression fracture. Diffuse osteopenia. No cervical fracture or dislocation. Comment: Preliminary interpretation provided by [facility]. Comment: Presence of a T3 compression was discussed with Dr. Christie at the time of study dictation on 09/02/2024 at 0657 hours. Dictated by: Ru Cheatham M.D. on 09/02/2024 at 6:55 Approved by: Ru Cheatham M.D. on 09/02/2024 at 7:06
--- NOTE | 2024-09-02 04:57 | EKG_ITS ---
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
--- NOTE | 2024-09-02 04:58 | ED_ITS ---
HPI - General Adult General Chief complaint: Trauma Stated complaint: mod trauma, fall on thinners, +LOC, Lac Time Seen by Provider: 09/02/24 04:54 Source: patient, family and EMS Mode of arrival: EMS Limitations: no limitations History of Present Illness HPI narrative: Patient is an 89-year-old male. Is on anticoagulation. Has a pacemaker in place. Has a history of AFib/atrial flutter. Recently had a ablation. As had history of multiple falls. This morning he states he got up to go use the restroom. He states the next thing he remembers he was on the ground. He did hit his head. There was reported loss of consciousness. Sustained a laceration to his head. No extremity injuries. Arrived in a cervical collar but not on a backboard. Related Data Home Medications Medication Instructions Recorded Confirmed glipizide 2.5 mg tablet, extended 2.5 mg PO DAILY 01/14/21 04/25/24 release 24 hr ticagrelor 90 mg tablet (Brilinta) 90 mg PO BID 10/23/21 04/25/24 amiodarone 200 mg tablet 200 mg PO DAILY 04/27/23 04/25/24 aspirin 81 mg tablet 162 mg PO DAILY 04/27/23 04/25/24 atorvastatin 20 mg tablet 20 mg PO DAILY 04/27/23 04/25/24 duloxetine 20 mg capsule,delayed 30 mg PO BEDTIME 04/27/23 04/25/24 release esomeprazole magnesium 40 mg 40 mg PO BID 04/27/23 04/25/24 capsule,delayed release metformin 500 mg tablet 500 mg PO DAILY 04/27/23 04/25/24 nitroglycerin 0.4 mg sublingual 0.4 mg sublingual Q5-15M PRN chest 04/27/23 04/25/24 tablet pain ondansetron 4 mg disintegrating 4 mg PO Q8H PRN nausea 04/27/23 04/25/24 tablet acetaminophen 500 mg tablet 500 mg PO PRN PRN Pain (Scale 04/15/24 04/25/24 Score 1-3) levothyroxine 88 mcg tablet 75 mcg PO DAILY 04/15/24 04/25/24 ascorbic acid (vitamin C) 100 mg 100 mg PO DAILY 04/25/24 04/25/24 tablet cholecalciferol (vitamin D3) 25 25 mcg PO DAILY 04/25/24 04/25/24 mcg (1,000 unit) tablet (Vitamin D3) furosemide 20 mg tablet 20 mg PO DAILY 04/25/24 04/25/24 hydrocodone 5 mg-acetaminophen 325 1 tab PO Q4-6H PRN Pain (Scale 04/25/24 04/25/24 mg tablet Score 4-6) ipratropium bromide 42 mcg (0.06 2 spray intranasal TID-QID PRN 04/25/24 04/25/24 %) nasal spray Allergy Symptoms vitamin C 45 mg-zinc citrate 3.75 1 tab PO DAILY 04/25/24 04/25/24 mg-elderberry 50 mg chewable tablet (Venture Incite) Previous Rx's Medication Instructions Recorded magnesium oxide 400 mg (241.3 mg 400 mg PO BID #180 tabs 10/08/20 magnesium) tablet Allergies Allergy/AdvReac Type Severity Reaction Status Date / Time Xyeafna-GRP-HpX Reductase Allergy Intermediate MUSCLE PAIN Verified 09/02/24 04:56 Inhibitor [SQJLHAB-[id number]-LBB REDUCTASE INHIBITOR] piroxicam [PIROXICAM] Allergy Mild NAUSEA, Verified 09/02/24 04:56 VOMITING dabigatran etexilate AdvReac Hematuria Verified 09/02/24 04:56 Review of Systems Review of Systems ROS Unobtainable: All systems reviewed & are unremarkable except as noted in HPI and below Patient History Medical History Nocturia Nocturia Thyroid disease Heart attack Arthritis Presence of Watchman left atrial appendage closure device (~01/07/19) Spinal stenosis of lumbar region Psychosexual dysfunction History of fatigue History of hematuria Paroxysmal A-fib Sick sinus syndrome RBBB History of CVA (cerebrovascular accident) History of dizziness Lumbosacral radiculopathy at L5 Elevated serum homocysteine level Neuropathy of both feet Memory deficit Depression Anxiety Sleep apnea (~2012) Dysuria Urinary retention Renal insufficiency Impotence History of angina Dyslipidemia CAD (coronary artery disease) Pacemaker (~2013) Diabetes Osteoarthritis TIA (transient ischemic attack) History of esophageal reflux Spinal stenosis in cervical region DDD (degenerative disc disease), cervical Surgical History History of fusion of cervical spine S/P drug eluting coronary stent placement History of cardiac cath (~2012) History of cholecystectomy (~2012) History of tonsillectomy History of cystoscopy History of vasectomy History of appendectomy H/O shoulder surgery Status post right foot surgery H/O thumb surgery H/O laminectomy History of bladder surgery History of lumbar fusion Social History marital status: details: to Siri, lives in [place] household members: spouse lives independently: Yes caregiver/support person: No housing: house Smoking Status: Never smoker alcohol intake: current substance use type: does not use Smoking Status: Never smoker alcohol intake frequency: holidays/special occasions only Exam Initial Vital Signs Initial Vital Signs: Vital Signs Temperature 97.7 F 09/02/24 04:52 Pulse Rate 74 09/02/24 04:52 Respiratory Rate 12 09/02/24 04:52 Blood Pressure 153/81 H 09/02/24 04:52 Pulse Oximetry 99 09/02/24 04:52 Oxygen Delivery Method Room Air 09/02/24 04:52 Const General: cooperative and No ill appearing HENVA Head: abrasion and laceration Face and sinus: normal facial exam Resp Effort & Inspection: normal respiratory effort Auscultation: clear to auscultation bilaterally Cardio Rate: regular rate Rhythm: regular rhythm GI Inspection: normal to inspection Back/Spine/Pelvis Cervical Spine: collar present Skin Other: 3 cm laceration to the scalp. Has a another smaller abrasion just anterior to this. No active bleeding. Neuro General: patient alert, patient awake, patient oriented x3 and moves all extremities Extrem General: normal to inspection and capillary refill normal Other: No gross deformities Procedures Laceration Repair Laceration 1: Site: scalp Side (If applicable): left Size (cm): 3 Description: linear Skin layer closed with: abhi Course Orders Ordered: ED Orders 09/02/24 04:54 CT cervical spine wo con Stat CT head/brain wo con Stat 09/02/24 04:55 Basic Metabolic Panel Stat Complete Blood Count AUTO DIFF Stat 09/02/24 04:57 EKG-12 Lead Stat Discontinued Medications Bacitracin (Bacitracin Oint 0.9 Gm Pckt) 1 applic TOP NOW ONE Stop: 09/02/24 05:22 Last Admin: 09/02/24 05:36 Dose: 1 applic Documented By: ELKE Vital Signs Vital signs: Vital Signs - 8 hr 12/16/24 04:52 09/02/24 04:55 09/02/24 04:55 Temperature 97.7 F Pulse Rate 74 67 Respiratory Rate 12 21 Blood Pressure 153/81 H 153/81 H Pulse Oximetry 99 99 Oxygen Delivery Method Room Air 09/02/24 05:00 09/02/24 05:00 09/02/24 05:14 Temperature Pulse Rate 73 Respiratory Rate 14 Blood Pressure 139/75 151/81 H Pulse Oximetry 98 Oxygen Delivery Method Room Air 09/02/24 05:14 09/02/24 05:30 09/02/24 05:31 Temperature Pulse Rate 72 70 72 Respiratory Rate 20 14 18 Blood Pressure Pulse Oximetry 97 98 97 Oxygen Delivery Method 09/02/24 05:31 09/02/24 05:39 09/02/24 05:39 Temperature Pulse Rate 75 Respiratory Rate 23 Blood Pressure 130/60 104/57 L Pulse Oximetry 96 Oxygen Delivery Method Room Air 09/02/24 06:00 09/02/24 06:01 09/02/24 06:01 Temperature Pulse Rate 79 78 Respiratory Rate 18 15 Blood Pressure 126/71 Pulse Oximetry 96 95 Oxygen Delivery Method 09/02/24 06:13 09/02/24 06:13 09/02/24 06:30 Temperature Pulse Rate 98 H Respiratory Rate 21 Blood Pressure 126/63 147/76 H Pulse Oximetry 99 Oxygen Delivery Method Room Air 09/02/24 06:30 Temperature Pulse Rate 74 Respiratory Rate 23 Blood Pressure Pulse Oximetry 99 Oxygen Delivery Method Room Air Medical Decision Making Lab Data Lab results reviewed: Yes I reviewed the patient's lab results. 09/02/24 04:55 09/02/24 04:55 Labs: Lab Results 09/02/24 Range/Units 04:55 WBC 5.9 (4.5-11.0) X10^3/uL RBC 4.17 L (4.5-5.9) X10^6/uL Hgb 13.6 (13.5-17.5) g/dL Hct 39.9 L (41-53) % MCV 95.8 (80-100) fL MCH 32.7 (26-34) PG MCHC 34.1 (30-36) % RDW 14.1 (11.6-14.8) % Plt Count 245 (150-400) X10^3/uL Neut % (Auto) 56.7 (50-75) % Lymph % (Auto) 30.7 (25-40) % Ellis % (Auto) 9.6 (3-14) % Eos % (Auto) 1.8 L (2-4) % Baso % (Auto) 1.2 (0-2) % Neut # (Auto) 3300 (9973-2621) /uL Lymph # (Auto) 1800 (6769-7112) /uL Ellis # (Auto) 600 (0-900) /uL Eos # (Auto) 100 (0-450) /uL Baso # (Auto) 100 (0-100) /uL Sodium 133 L (137-145) mmol/L Potassium 4.4 (3.4-5.1) mmol/L Chloride 100 (98-107) mmol/L Carbon Dioxide 25 (22-32) mmol/L BUN 24 H (9-20) mg/dL Creatinine 1.53 H (0.66-1.25) mg/dL Estimated GFR 43 L (>60) mL/min BUN/Creatinine Ratio 15.7 (6-22) Glucose 187 H (80-110) mg/dL Calcium 9.2 (8.4-10.2) mg/dL Point of Care Testing Glucose POC 180 Point of care testing: Point of Care Testing Glucose POC [address] scan - head: Radiologist's Impression: No acute intracranial abnormality Left frontal hematoma and laceration without calvarial fracture CT - cervical spine: Radiologist's Impression: Multilevel spondylitic changes of the cervical spine and postsurgical findings of anterior cervical fusion between C5 and C7 ECG Data Attestation: I personally reviewed and interpreted this ECG as follows: Interpretation: Atrial flutter Ventricular rate is 77 Left axis deviation Right bundle-branch block MDM Narrative Medical decision making narrative: Patient has been having dizziness episodes for several years now and that appears to be what is happened this morning. He states that it frequently happens to him when he urinates in the morning. The laceration on his head was closed with abhi. He has other skin abrasions that do not need specific closure here in the ER. He was no discomfort with midline cervical spine tenderness. Has no discomfort over the thoracic spine. Received a call from the radiologist reporting that there is a T3 compression fracture although the patient is not tender over this area. He did stand and ambulate with the walker at bedside at his baseline. Will discharge patient home with return precautions. He expressed understanding and agreement. Discharge Plan Departure Patient Disposition: Home Clinical Impression: Laceration of scalp Instructions: DI for Laceration Repair -- Abhi, How to Prevent Falls Activity Restrictions/Additional Instructions: The abhi that were placed today will need to come out in 7-10 days. You can go to the walk-in clinic or your primary doctor for this. You can put topical antibiotic ointment on the area. Examples of this include bacitracin and Neosporin. You can bathe like normal. Continue all of your medications as directed. Return to the emergency department for new symptoms. Prescriptions: No Action glipizide 2.5 mg Tablet Extended Release 24hr 2.5 mg PO DAILY metformin 500 mg tablet 500 mg PO DAILY atorvastatin 20 mg tablet 20 mg PO DAILY amiodarone 200 mg tablet 200 mg PO DAILY esomeprazole magnesium 40 mg capsule,delayed release(DR/EC) 40 mg PO BID nitroglycerin 0.4 mg Tablet, Sublingual 0.4 mg SUBLINGUAL Q5-15M PRN (Reason: chest pain) Rx Instructions: do not exceed 3 doses per episode aspirin 81 mg Tablet 162 mg PO DAILY ondansetron 4 mg tablet,disintegrating 4 mg PO Q8H PRN (Reason: nausea ) duloxetine 20 mg capsule,delayed release(DR/EC) 30 mg PO BEDTIME acetaminophen 500 mg Tablet 500 mg PO PRN PRN (Reason: Pain (Scale Score 1-3)) levothyroxine 88 mcg tablet 75 mcg PO DAILY hydrocodone-acetaminophen 5-325 mg Tablet 1 tab PO Q4-6H PRN (Reason: Pain (Scale Score 4-6)) ascorbic acid (vitamin C) 100 mg Tablet 100 mg PO DAILY ipratropium bromide 42 mcg (0.06 %) Embudo,Non-Aerosol 2 spray INTRANASAL TID-QID PRN (Reason: Allergy Symptoms) Rx Instructions: administer into each nostril cholecalciferol (vitamin D3) [Vitamin D3] 25 mcg (1,000 unit) Tablet 25 mcg PO DAILY Venture Incite 45-3.75-50 mg Tablet,Chewable 1 tab PO DAILY furosemide 20 mg tablet 20 mg PO DAILY magnesium oxide 400 mg (241.3 mg magnesium) Tablet 400 mg PO BID Qty: 180 3RF Brilinta 90 mg tablet 90 mg PO BID Referrals: Diane Howard MD [Primary Care Provider] - Stand Alone Forms: Patient Portal/API/Survey
[2024-09-02 05:09] LABS: Add Manual Diff / Slide Review NO; Basophils Absolute Auto 100 /uL (0-100); Basophils Percent Auto 1.2 % (0-2); Eosinophils Absolute Auto 100 /uL (0-450); Eosinophils Percent Auto 1.8 % (2-4); Hematocrit 39.9 % (41-53); Hemoglobin 13.6 g/dL (13.5-17.5); Lymphocytes Absolute Auto 1800 /uL (1100-4500); Lymphocytes Percent Auto 30.7 % (25-40); Mean Corpuscular HGB Conc 34.1 % (30-36); Mean Corpuscular Hemoglobin 32.7 PG (26-34); Mean Corpuscular Volume 95.8 fL (80-100); Monocytes Absolute Auto 600 /uL (0-900); Monocytes Percent Auto 9.6 % (3-14); Neutrophils Absolute Auto 3300 /uL (1500-7000); Neutrophils Percent Auto 56.7 % (50-75); Platelet Count 245 X10^3/uL (150-400); Red Blood Cell Count 4.17 X10^6/uL (4.5-5.9); Red Cell Distribution Width 14.1 % (11.6-14.8); White Blood Cell Count 5.9 X10^3/uL (4.5-11.0)
[2024-09-02 05:17] LABS: BUN Creatinine Ratio 15.7 (6-22); Blood Urea Nitrogen 24 mg/dL (9-20); Calcium 9.2 mg/dL (8.4-10.2); Carbon Dioxide 25 mmol/L (22-32); Chloride 100 mmol/L (98-107); Estimated Glomerular Filt Rate 43 mL/min (>60); Glucose 187 mg/dL (80-110); HEMOLYSIS < 15 (0-50); Potassium 4.4 mmol/L (3.4-5.1); Sodium 133 mmol/L (137-145)
[2024-09-02] MEDS: BACITRACIN OINT 0.9 GM PCKT 1 APPLIC TOP (05:36)
--- NOTE | 2024-09-02 06:19 | PC.NURSE ---
this RN and FOOD SERVICES DIRECTOR Naomie assisted patient to stand and use a walker to walk in the room to the door and back to the stretcher. patient ambulated with walker okay with intermittent dizziness but was able to stand/walk on his own. provider aware.
== END 2024-09-02 07:30 | disposition home or self-care (01) ==
PROVIDERS: Emergency Provider Emergency Medicine; PCP Family Medicine
DX: S01.01XA Laceration without foreign body of scalp, initial encounter (principal); Z95.0 Presence of cardiac pacemaker; Z79.01 Long term (current) use of anticoagulants; I48.92 Unspecified atrial flutter; I45.10 Unspecified right bundle-branch block; R42 Dizziness and giddiness; W18.09XA Striking against other object with subsequent fall, initial encounter; R29.6 Repeated falls; I45.2 Bifascicular block
CPT/HCPCS: 12002; 36415; 70450; 72125; 80048; 85025; 93005; 99284; 99285